=== PATIENT | female | born 1950 | race Caucasian/White ===

== ENCOUNTER 2017-07-15 05:33 | Inpatient (IN) | payer MEDICARE, OTHER, SELFPAY ==
[2017-07-15] VITALS (32 sets, daily range): BP systolic 82–117; BP diastolic 39–87; PULSE 91–122; RESP 15–29; TEMP 36.5–37.6; O2SAT 96–100; BMI 30.7; BMI 30.3
[2017-07-15] MEDS: 0.9% Normal Saline 1,000 ML 1000 ML IV (06:13)
[2017-07-15 06:19] LABS: Absolute Lymphocyte Count 2.48 X10^3/ul (0.83-4.51); Absolute Neutrophil Count 7.4 X10^3/uL (2.0-7.7); Basophil# 0.02 X10^3/uL; Basophil% 0.2 % (0-1); Eosinophil# 0.13 X10^3/uL; Eosinophils% 1.2 % (0-5); Hemoglobin 8.9 g/dl (12.0-15.0); Lymphocyte # 2.48 X10^3/ul (4.0); Lymphocyte % 23.7 % (19-41); Mean Corpuscular Hgb 30.9 pg (27.0-32.0); Mean Corpuscular Volume 93.8 fL (81-99); Mean Platelet Vol. 9.8 fl (6.2-12.0); Monocyte# 0.42 X10^3/uL; Neutrophil % 70.7 % (47-70); POSITIVE COUNT NO; POSITIVE DIFFERENTIAL NO; POSITIVE MORPHOLOGY NO; Platelet Count 228 K/mm3 (150-450); RBC Distribution Width CV 13.4 % (11.6-14.6); RBC Distribution Width SD 46.2 fl (35.1-43.9); Red Blood Count 2.88 M/mm3 (4.2-5.4); White Blood Count 10.5 K/mm3 (4.4-11.0)
[2017-07-15 06:25] LABS: International Normalized Ratio 1.3; Prothrombin Time (Protime)PT. 15.2 SECONDS (11.7-14.9)
[2017-07-15 06:26] LABS: Partial Thromboplast Time 25.9 Seconds (24.1-36.2)
[2017-07-15 06:34] LABS: Anion Gap 8 (5-15); BUN 30 mg/dL (7-18); BUN/Creat Ratio 48.9 RATIO (10-20); Calcium,Total 7.7 mg/dL (8.5-10.1); Chloride 107 mmol/L (98-107); Creatinine, Serum 0.61 mg/dL (0.55-1.02); EST Glomerular Filtration Rate 104 mL/min (>60); Est Glom Filt Rate - Afr Amer 125 mL/min (>60); Estimated Creatinine Clearance 53.81 ml/min; Glucose 110 mg/dL (74-106); Potassium 4.2 mmol/L (3.5-5.1); Sodium Level 140 mmol/L (136-145)
[2017-07-15] MEDS: 0.9% Normal Saline 1,000 ML 250 ML IV (06:56)
--- NOTE | 2017-07-15 07:02 | ED.RN ---
[id number] DR CHACON MADE AWARE THAT THE PT'S BP IS 85/43,ORDER RECIEVED.
--- NOTE | 2017-07-15 08:50 | ED.VISSUMM ---
- ER Visit Summary Date of Service: 07/15/17 Chief Complaint: Blood in stool History of Present Illness: The patient is a [address] Smith and Dr. Plata. She reports that for the past 2 days she has had black diarrhea that smells like blood. States that she has had it 3 times today. She had a 5 times yesterday. She reports that she has an intermittent stabbing abdominal pain is 8 out of 10 at worst and is 1 out of 10 currently. Is worsened by nothing relieved by nothing. She reports she is nauseated and vomits all the time. Last vomited 3 days ago. Patient reports she is lightheaded today. She has not passed out. She reports that her last colonoscopy was approximately 4 years ago. She saw Dr. Plata in the office 4 days ago and is scheduled for an endoscopy in 4 days. Physical Examination: Vitals: Stable. Afebrile. General: Well-nourished and well-developed. Head: Normocephalic atraumatic. Neck: Supple, no lymphadenopathy. No JVD. Nontender. Cardiovascular: Regular rate and rhythm. No murmurs. Respiratory: No respiratory distress. Clear to auscultation bilaterally. Abdominal: Soft, mild diffuse tenderness palpation, nondistended, normal bowel sounds. No guarding, rebound, or peritoneal signs. Back: Nontender. Extremities: Nontender, no edema. Skin: Normal color, no rash. Neurologic: Alert and oriented ?3. Cranial nerves II through XII are intact. Normal strength and sensation. Psych: Normal affect. Test Results: CBC is remarkable for an H&H of 8.9 27.0, segment neutrophils of 71. Last hemoglobin here was in January 2017. At that time was 14.2. Chem-7 is more for glucose 110, BUN of 30, and calcium is 7.7. INR is 1.3 and PTT is 25.9. Emergency Department Course and Treatment: Patient had positive orthostatic vital signs. She was given a dose of Protonix IV and started on a Protonix drip. She was discussed with Dr. Davis who has come to the emergency department and done an endoscopy. He does not see any active bleeding. He does see an ulcer in the duodenum that appears that it may have been the culprit lesion and the bleeding is resolved. Patient had procedural sedation undertaken with propofol for the endoscopy. She tolerated this well. She did not become hypoxic. Her blood pressure never decreased below 90 systolic. Treatment Plan: The patient started on a Protonix drip. She will be admitted to the ICU for further evaluation and treatment. She was typed and crossed for 2 units of packed red blood cells. Disposition: Admitted in serious condition Impression: 1. Upper GI bleed. 2. Procedural sedation. 3. Critical care time 30 minutes. This note was generated with [employer] dictation software. It may contain incorrect words, spelling, and punctuation that were not noted in review of the chart prior to signing ED Disposition - Plan for ED Patient: Chief Complaint: GI Bleed Referrals: Mary Smith DO [Primary Care Provider] -
[2017-07-15] MEDS: Propofol 200 MG/20 ML Vial IV BOLUS (09:01)
--- NOTE | 2017-07-15 09:35 | PCM.CONS.GEN ---
Problem List (1) GI bleed requiring more than 4 units of blood in 24 hours, ICU, or surgery Status: Acute (2) Hemorrhagic shock Status: Acute (3) Obesity Status: Chronic (4) SDH (subdural hematoma) Status: Acute Reason for Consult Date of Consultation: 07/15/17 History of Present Illness: The patient is a 67 year old F with a 2 day history of melena and persistent hypotension after 1 L of IV fluids. The patient notes a history of colon polyps. She had a colonoscopy performed by Dr. Plata 4 years previously which demonstrated polyps and she was actually supposed to be having a follow-up colonoscopy in the near future. The patient denies previous upper endoscopies. She denies a history of previous ulcer disease. She notes no abdominal pain area. She notes no nausea or vomiting. For the past 2 days she has noted black tarry foul-smelling stools. This persisted. She presented emergency department where she also noted dizziness. She was found to be significantly hypotensive. Laboratory studies were obtained. The patient's hemoglobin is 8.9. Last recorded hemoglobin 6 months previously, was 14.2. She was given 1+ liter of fluid and still has a systolic blood pressure less than 100. I was contacted. The patient does smoke cigarettes. She does not drink alcohol. She had a previous intracranial bleed, so she does not take aspirin. She does take rare nonsteroidal medications. She also notes a previous history of hematuria. Past Medical History Past Medical History (Chronic Problems): Chronic Problems Obesity (Chronic) GERD (gastroesophageal reflux disease) (Chronic) Allergies Penicillins Allergy (Verified 07/15/17 05:38) Unknown prednisone Allergy (Verified 07/15/17 05:38) Unknown ibuprofen [From Advil] Adverse Reaction (Verified 07/15/17 05:38) Other Home Medications: Ambulatory Orders Medication Instructions Recorded Cholecalciferol (Vitamin D3) 1,000 unit PO DAILY 07/15/17 [Vitamin D3] Cyanocobalamin (Vitamin B-12) 1,000 mcg PO DAILY 07/15/17 [Vitamin B-12] Surgical History: - - Surgery for subdural hematoma Psychiatric History: No pertinent psych hx 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 Denies: Chills, Fever, Weight Change HEENT: Denies: Head Aches, Sinus Congestion, Sinus Drainage Cardiovascular: Denies: Chest Pain, Palpitations Respiratory: Denies: Cough, Shortness of breath at rest, Sputum production Gastrointestinal: Reports: Melena. Denies: Abdominal Pain, Nausea, Vomiting Genitourinary: Denies: Dysuria Musculoskeletal: Denies: Joint Pain, Joint Tenderness Skin: Denies: Rash, Wounds Neurological: Denies: Numbness, Tingling, Focal weakness Psychiatric: Denies: Anxiety, Depression, Homicidal Ideations, Suicidal Ideations Hematologic/ Lymphatic: Denies: Easy Bruising, Easy Bleeding Patient Problems: Active and Suspected Problems GI bleed requiring more than 4 units of blood in 24 hours, ICU, or surgery (Acute) Hemorrhagic shock (Acute) - Physical Exam General: Alert, Oriented x3 HEENT: PERRLA, EOMI Lungs: Clear to auscultation, Normal air movement Cardiovascular: Regular Rhythm, Tachycardic Abdomen: Bowel Sounds Present, Soft, Non Tender Vital Signs Temp Pulse Resp BP Pulse Ox 97.7 F L 97 16 117/54 L 98 07/15/17 06:46 07/15/17 09:16 07/15/17 09:16 07/15/17 09:16 07/15/17 09:16 Oxygen Delivery Method Room Air Assessment/Plan Active and Suspected Problems GI bleed requiring more than 4 units of blood in 24 hours, ICU, or surgery (Acute) Hemorrhagic shock (Acute) GI bleed-hemorrhagic shock. Peptic ulcer-Upper endoscopy was performed in the emergency department. The patient was noted to have an edematous pylorus versus first portion of duodenum which the scope could not easily be advanced through there did not seem to be active bleeding visualized beyond that site and there appeared to be either a pyloric channel or first portion of the duodenal ulcer with white base. we will plan to admit the patient to ICU, given the fact that she remains hypotensive after fluid and would empirically transfuse 2 units of blood since she is now on her second liter of IV fluid and still somewhat hypotensive. We will start with IV proton pump inhibitors. She was given IV bolus and will maintain continuous drip. We will follow the patient clinically. If she seems to become unstable and bleed again. We will plan for repeat emergent upper endoscopy. If the patient remained stable. We will plan for repeat upper endoscopy in approximately 2 days. Will maintain patient nothing by mouth versus sips of clear liquids, to facilitate additional endoscopy if necessary. If patient otherwise stable, but seeming to have continued bleeding, then would consider bleeding scan to assess for additional locations.
--- NOTE | 2017-07-15 09:42 | PCM.OPRPT ---
Problem List (1) GI bleed requiring more than 4 units of blood in 24 hours, ICU, or surgery Status: Acute (2) Hemorrhagic shock Status: Acute (3) Obesity Status: Chronic (4) SDH (subdural hematoma) Status: Acute Report of Operation Date of Procedure: 07/15/17 Pre-Operative Diagnosis: GI bleed-hemorrhagic shock-melena Post-Operative Diagnosis: pyloric versus post pyloric edema with suggestion of white-based ulcer in first portion duodenum versus pyloric channel-no signs of active current bleeding Surgery/Procedure Performed:: EGD core driller helper: None Type of Anesthesia:: IV Sedation Specimen's removed: none Description of Procedure: The patient was brought to the trauma resuscitation bay in the emergency department. Sign in was performed verifying patient, site, planned procedure, critical nursing information, the patient was monitored with cardiac, pulse oximetric, and blood pressure monitoring devices. propofol was provided for sedation - Mister by the emergency room physician and documented under separate cover. Following IV sedation and after the oropharynx was sprayed with Cetacaine spray, a video gastroscope was inserted in the oropharynx and advanced down the esophagus without difficulty. The scope was advanced through the stomach, to the pylorus/first portion of the duodenum. this area demonstrated significant edema. It was no active bleeding in the stomach prior to this area. The scope could not be inserted through this edematous area with some mild pushing. Visual inspection did seem to demonstrate through the area. A white-based ulcer and there was no signs of blood emanating through the pylorus or blood beyond the area to which the scope could be inserted. Given these challenges. I did not attempt to push the scope through the pylorus any harder. As the scope was withdrawn. The body of the stomach demonstrated no specific abnormalities. There was mild oozing noted at that prepyloric area where I had attempted to push the scope through somewhat gently. The scope was retroflexed area. There was felt to be a small hiatal hernia versus laxity lower esophageal sphincter. As the scope was withdrawn. There was noted to be some mucosal moving over the diaphragmatic hiatus without signs of marginal ulceration. The esophagus demonstrated no signs of esophageal varices. The remainder the esophagus was normal. The patient tolerated the procedure well, but was hypotensive throughout the case with a systolic blood pressure in the 80s. The patient will be transferred to the ICU for close monitoring.
--- NOTE | 2017-07-15 09:47 | OP.PCM_ITS ---
Problem List (1) GI bleed requiring more than 4 units of blood in 24 hours, ICU, or surgery Status: Acute (2) Hemorrhagic shock Status: Acute (3) Obesity Status: Chronic (4) SDH (subdural hematoma) Status: Acute Report of Operation Date of Procedure: 07/15/17 Pre-Operative Diagnosis: GI bleed-hemorrhagic shock-melena Post-Operative Diagnosis: pyloric versus post pyloric edema with suggestion of white-based ulcer in first portion duodenum versus pyloric channel-no signs of active current bleeding Surgery/Procedure Performed:: EGD cow tester: None Type of Anesthesia:: IV Sedation Specimen's removed: none Description of Procedure: The patient was brought to the trauma resuscitation bay in the emergency department. Sign in was performed verifying patient, site, planned procedure, critical nursing information, the patient was monitored with cardiac, pulse oximetric, and blood pressure monitoring devices. propofol was provided for sedation - Mister by the emergency room physician and documented under separate cover. Following IV sedation and after the oropharynx was sprayed with Cetacaine spray , a video gastroscope was inserted in the oropharynx and advanced down the esophagus without difficulty. The scope was advanced through the stomach, to the pylorus/first portion of the duodenum. this area demonstrated significant edema. It was no active bleeding in the stomach prior to this area. The scope could not be inserted through this edematous area with some mild pushing. Visual inspection did seem to demonstrate through the area. A white-based ulcer and there was no signs of blood emanating through the pylorus or blood beyond the area to which the scope could be inserted. Given these challenges. I did not attempt to push the scope through the pylorus any harder. As the scope was withdrawn. The body of the stomach demonstrated no specific abnormalities. There was mild oozing noted at that prepyloric area where I had attempted to push the scope through somewhat gently. The scope was retroflexed area. There was felt to be a small hiatal hernia versus laxity lower esophageal sphincter. As the scope was withdrawn. There was noted to be some mucosal moving over the diaphragmatic hiatus without signs of marginal ulceration. The esophagus demonstrated no signs of esophageal varices. The remainder the esophagus was normal. The patient tolerated the procedure well, but was hypotensive throughout the case with a systolic blood pressure in the 80s. The patient will be transferred to the ICU for close monitoring.
--- NOTE | 2017-07-15 11:02 | PCM.HP.STD ---
Problem List (1) Acute blood loss anemia Status: Acute (2) Hypotension due to blood loss Status: Acute (3) Obesity Status: Chronic (4) GERD (gastroesophageal reflux disease) Status: Chronic (5) SDH (subdural hematoma) Status: Chronic History of Present Illness Date of Admission: 07/15/17 Chief Complaint: blood in stool The patient is a 67 year old F who presented to the ER complaining of blood in her stool. This began last night, she had about 4 episodes of dark red and black stools mostly liquid with what she thinks may have been blood clots. She had at least 2 more episodes of this this morning and felt dizzy when standing up which would resolve with sitting down. No syncope, LOC, or fall. She drove herself to the ER and was found to be anemic with a Hgb of 8.9. Dr. German was consulted and performed an EGD with demonstrated no active bleeding, however there was a duodenal ulcer. She was taken to the ICU and is recovering. The patient has noted off and on heartburn recently and did admit to taking two Aleve tablets on . She has a problem with sudden vomiting that occurs seemingly randomly, for example when she is driving. She denies blood or coffee ground emesis. Today she did have midepigastric abdominal pain which is improved at this point. She denies abdominal pain after eating. . She is not supposed to be on any blood thinning agents as she had a brain bleed 3 years ago which was treated with two surgeries. She denies any chronic neurologic deficits after this. She also has a recent history of hematuria for which she was seen by Dr. Quispe last month, she denies recent blood in her urine, and states lately it is just dark She also has a hx of bleeding internal hemorrhoids. She smokes 1 cigarette per day and occasionally drinks a glass of wine. [] Past Medical History Past Medical History (Chronic Problems): Chronic Problems Obesity (Chronic) GERD (gastroesophageal reflux disease) (Chronic) SDH (subdural hematoma) (Chronic) Allergies Penicillins Allergy (Verified 07/15/17 05:38) Unknown prednisone Allergy (Verified 07/15/17 05:38) Unknown ibuprofen [From Advil] Adverse Reaction (Verified 07/15/17 05:38) Other Home Medications: Ambulatory Orders Medication Instructions Recorded Cholecalciferol (Vitamin D3) 1,000 unit PO DAILY 07/15/17 [Vitamin D3] Cyanocobalamin (Vitamin B-12) 1,000 mcg PO DAILY 07/15/17 [Vitamin B-12] Surgical History: - - Surgery for subdural hematoma Psychiatric History: No pertinent psych hx 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 Denies: Chest Pain, Palpitations, Syncope Respiratory: Denies: Cough, Shortness of breath at rest, Sputum production Gastrointestinal: Reports: Abdominal Pain, Diarrhea, Hematochezia, Melena, Vomiting Genitourinary: Reports: Hematuria. Denies: Dysuria Musculoskeletal: Denies: Joint Pain, Joint Tenderness Skin: Denies: Rash, Wounds Neurological: Denies: Numbness, Tingling, Focal weakness Psychiatric: Denies: Anxiety, Depression, Homicidal Ideations, Suicidal Ideations Hematologic/ Lymphatic: Denies: Easy Bruising, Easy Bleeding VTE Information - Inpt Only VTE Present on Admission: No VTE Mechan Device Prophylaxis: SCD's VTE Pharm Prophylaxis ordered?: No Reason prophylaxis not ordered:: Medical Contraindication Patient Problems: Active and Suspected Problems GI bleed requiring more than 4 units of blood in 24 hours, ICU, or surgery (Acute) Hemorrhagic shock (Acute) Acute blood loss anemia (Acute) Hypotension due to blood loss (Acute) - Physical Exam General: Alert, Oriented x3, Cooperative HEENT: Atraumatic, PERRLA, EOMI, Normocephalic Neck: Supple, No JVD, Negative Carotid Bruits Lungs: Clear to auscultation, Normal air movement Cardiovascular: Regular rate, No murmurs Abdomen: Bowel Sounds Present, Soft, Non Tender Extremities: No edema, Capillary Refill Less than 3 Seconds Skin: No rashes, No breakdown, - - pale Musculoskeletal: No Tenderness to Palpation of Joints or Extremities Neurological: Cranial nerves II-XII grossly intact Psych/Mental Status: Normal Affect, Appropriate, Alert and oriented to time, place, person, mood and affect Vital Signs Temp Pulse Resp BP Pulse Ox 97.9 F 95 24 H 106/58 L 97 07/15/17 10:25 07/15/17 10:25 07/15/17 10:25 07/15/17 10:25 07/15/17 10:25 Oxygen Delivery Method Room Air Intake and Output for Last 24 Hours 07/13/17 07/14/17 07/15/17 23:59 23:59 23:59 Intake Total 0 / 0 Balance 0 / 0 Assessment/Plan Active and Suspected Problems GI bleed requiring more than 4 units of blood in 24 hours, ICU, or surgery (Acute) Hemorrhagic shock (Acute) Acute blood loss anemia (Acute) Hypotension due to blood loss (Acute) 1. Acute blood loss normocytic anemia 2/2 acute GI bleed suspected upper - multiple episodes of black and dark red loose stools since yesterday night and this AM with lightheadedness on standing. s/p EGD per Dr. German today no active bleeding found, report of a duodenal ulcer. She remains in ICU receiving 1 unit PRBC with low blood pressure. reported lightheadedness with standing. Continue protonix drip, serial H/H's, and antiemetics. Other notes: -frequent vomiting -reported heartburn -midepigastric pain, nontender on exam today -needs outpatient PPI -recent NSAID use - advised complete avoidance of all NSAID products. -occasional nicotine and alcohol use - needs cessation 2. Hypotension 2/2 acute blood loss - IV fluids and transfusion. 3. Hx of Brain bleed 3 years ago - I reemphasized the need to avoid all blood thinning products. No chronic deficits. 4. Nicotine abuse - strongly encouraged complete cessation 5. Hx hematuria - follows Jose Enrique 6. Hx of Bleeding internal hemorrhoids DVT ppx: SCDs Patient seen by Zak Marshall PA-C under the supervision of Dr. Harding
[2017-07-15] MEDS: 0.9% Normal Saline 1,000 ML 150 ML IV (13:37)
[2017-07-15 18:32] LABS: Hematocrit 24.8 % (37-47); Hemoglobin 8.3 g/dl (12.0-15.0)
[2017-07-15] MEDS: 0.9% NaCl Peripheral Flush Adult/Peds IV (22:22)
[2017-07-15 23:54] LABS: Hematocrit 26.1 % (37-47); Hemoglobin 8.8 g/dl (12.0-15.0)
[2017-07-16] VITALS (21 sets, daily range): BP systolic 88–99; BP diastolic 40–59; PULSE 82–97; RESP 16–24; TEMP 36.8–37.8; O2SAT 97–100
[2017-07-16] MEDS: 0.9% NaCl Peripheral Flush Adult/Peds IV (01:28)
[2017-07-16] MEDS: 0.9% Normal Saline 1,000 ML 150 ML IV ×2 (01:28→09:56)
[2017-07-16] MEDS: CHLORHEXIDINE GLUC 2% CLOTH 1 EACH TOWELETTE TOPICAL (04:23)
[2017-07-16 05:34] LABS: Absolute Lymphocyte Count 1.73 X10^3/ul (0.83-4.51); Absolute Neutrophil Count 7.1 X10^3/uL (2.0-7.7); Basophil# 0.02 X10^3/uL; Basophil% 0.2 % (0-1); Eosinophil# 0.13 X10^3/uL; Eosinophils% 1.4 % (0-5); Hematocrit 26.5 % (37-47); Hemoglobin 8.9 g/dl (12.0-15.0); Lymphocyte # 1.73 X10^3/ul (4.0); Lymphocyte % 18.1 % (19-41); Mean Corp Hgb Conc 33.6 g/gl (32-36); Mean Corpuscular Hgb 31.1 pg (27.0-32.0); Mean Corpuscular Volume 92.7 fL (81-99); Mean Platelet Vol. 10.1 fl (6.2-12.0); Monocyte# 0.61 X10^3/uL; Monocyte% 6.4 % (0-10); Neutrophil # 7.05 X10^3/uL (2.7-7.7); Neutrophil % 73.6 % (47-70); Platelet Count 155 K/mm3 (150-450); RBC Distribution Width CV 14.8 % (11.6-14.6); RBC Distribution Width SD 48.4 fl (35.1-43.9); Red Blood Count 2.86 M/mm3 (4.2-5.4); White Blood Count 9.6 K/mm3 (4.4-11.0)
[2017-07-16 05:43] LABS: POSITIVE COUNT NO; POSITIVE DIFFERENTIAL NO; POSITIVE MORPHOLOGY NO
[2017-07-16 05:44] LABS: Anion Gap 6 (5-15); BUN 12 mg/dL (7-18); BUN/Creat Ratio 20.8 RATIO (10-20); Calcium,Total 7.2 mg/dL (8.5-10.1); Chloride 113 mmol/L (98-107); Creatinine, Serum 0.58 mg/dL (0.55-1.02); EST Glomerular Filtration Rate 111 mL/min (>60); Est Glom Filt Rate - Afr Amer 135 mL/min (>60); Estimated Creatinine Clearance 55.82 ml/min; Glucose 95 mg/dL (74-106); Potassium 3.5 mmol/L (3.5-5.1); Sodium Level 143 mmol/L (136-145)
--- NOTE | 2017-07-16 07:10 | PCM.CON.CC ---
Reason for Consult Date of Consultation: 07/16/17 Reason for Consultation: Gastrointestinal hemorrhage/hypotension History of Present Illness: The patient is a 67-year-old female, with a history as outlined below, who presented to the emergency department on July 15 with melena, abdominal pain, nausea and vomiting. The patient does have a history of colonic polyps and had her last colonoscopy performed by Dr. Plata approximately 4 years ago. The patient has no known upper gastrointestinal disease. On presentation to the emergency department, the patient was noted to be afebrile, tachycardic and mildly hypotensive with an initial blood pressure documented to be 93/57. The patient was initially maintaining appropriate oxygen saturations on room air. Laboratory evaluation revealed no evidence of a leukocytosis. The patient was noted to have a hemoglobin of 8.9 g/dL on admission. Prior to this, in January 2017, her hemoglobin was noted to be 14.2 g/dL. Coagulation profile is within normal limits. Chemistry profile was notable for an elevated BUN to 30. The patient was given supplemental IV fluids and started on a PPI drip. She was evaluated by Dr. German of surgery and subsequently underwent an upper endoscopy. The procedure revealed the presence of a duodenal ulcer. To date, the patient has been transfused 3 units of packed red blood cells. Past Medical History Past Medical History (Chronic Problems): Chronic Problems Obesity (Chronic) GERD (gastroesophageal reflux disease) (Chronic) SDH (subdural hematoma) (Chronic) Allergies Penicillins Allergy (Verified 07/15/17 05:38) Unknown prednisone Allergy (Verified 07/15/17 05:38) Unknown ibuprofen [From Advil] Adverse Reaction (Verified 07/15/17 05:38) Other Home Medications: Ambulatory Orders Medication Instructions Recorded Cholecalciferol (Vitamin D3) 1,000 unit PO DAILY 07/15/17 [Vitamin D3] Cyanocobalamin (Vitamin B-12) 1,000 mcg PO DAILY 07/15/17 [Vitamin B-12] Surgical History: - - Surgery for subdural hematoma Psychiatric History: No pertinent psych hx 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 Lives: Spouse/ Significant Other Smoking Status: Current every day smoker Alcohol: Rare - *Family History Maternal History Items: Cancer Paternal History Items: No pertinent history Review of Systems Constitutional: Denies: Chills, Fever, Night Sweats Eyes: Denies: Blurred vision, Double vision HEENT: Denies: Head Aches, Sinus Congestion, Sinus Drainage Cardiovascular: Reports: Light Headedness Respiratory: Denies: Cough, Shortness of breath at rest, Sputum production Gastrointestinal: Reports: Abdominal Pain, Nausea, Melena, Vomiting Genitourinary: Denies: Dysuria Musculoskeletal: Denies: Joint Pain, Joint Tenderness Skin: Denies: Rash, Wounds Neurological: Denies: Numbness, Tingling, Focal weakness Psychiatric: Denies: Anxiety, Depression, Homicidal Ideations, Suicidal Ideations Hematologic/ Lymphatic: Reports: Anemia, Hx of blood transfusion Patient Problems: Active and Suspected Problems GI bleed requiring more than 4 units of blood in 24 hours, ICU, or surgery (Acute) Hemorrhagic shock (Acute) Acute blood loss anemia (Acute) Hypotension due to blood loss (Acute) Objective: The patient's most recent lab work, culture data and imaging studies have all been personally reviewed. - Physical Exam General: Alert, Oriented x3, Cooperative, No apparent distress HEENT: Atraumatic, PERRLA, Normocephalic Oral: Moist Mucosa, No Gingival or Mucosal Lesions/ Ulcerations Neck: Supple, No Nodes, Trachea Midline Lungs: Normal air movement, No rhonchi, No wheeze, No rales Cardiovascular: Regular rate, Regular Rhythm, Normal S1, Normal S2, No murmurs, No rub noted, No Gallop Abdomen: Soft, Non Tender, Hypoactive Bowel Sounds, Obese Extremities: No clubbing, No cyanosis, No edema Skin: No rashes, No breakdown Musculoskeletal: No Tenderness to Palpation of Joints or Extremities Lymphatic: No Cervical, Supraclavicular, or Inguinal Adenopathy Neurological: Neuro grossly intact Psych/Mental Status: Alert and oriented to time, place, person, mood and affect Vital Signs Temp Pulse Resp BP Pulse Ox 99.2 F H 87 18 97/53 L 99 07/16/17 04:00 07/16/17 06:00 07/16/17 06:00 07/16/17 06:00 07/16/17 06:00 Oxygen Delivery Method Room Air Weight: 199 lb 15.348 oz Body Mass Index (BMI) 30.3 Intake and Output for Last 24 Hours 07/14/17 07/15/17 07/16/17 23:59 23:59 23:59 Intake Total 2734 / 2734 1310 / 1310 Output Total 800 / 800 1050 / 1050 Balance 1934 / 193 260 / 260 Laboratory Tests Past 24 Hrs 07/15/17 07/15/17 07/16/17 18:20 23:45 05:20 WBC 9.6 RBC 2.86 L Hgb 8.3 L 8.8 L 8.9 L Hct 24.8 L 26.1 L 26.5 L MCV 92.7 MCH 31.1 MCHC 33.6 RDW 14.8 H RDW Differential 48.4 H Plt Count 155 MPV 10.1 Immature Gran % (Auto) 0.300 Neut % (Auto) 73.6 H Lymph % (Auto) 18.1 L [place] % (Auto) 6.4 Eos % (Auto) 1.4 Baso % (Auto) 0.2 Absolute Neuts (auto) 7.1 Absolute Lymphs (auto) 1.73 Total Counted Not Reportable Sodium Potassium Chloride Carbon Dioxide Anion Gap BUN Creatinine Estim Creat Clear Calc Est GFR (MDRD) Af Amer Est GFR (MDRD) Non-Af BUN/Creatinine Ratio Glucose Calcium 07/16/17 05:20 WBC RBC Hgb Hct MCV MCH MCHC RDW RDW Differential Plt Count MPV Immature Gran % (Auto) Neut % (Auto) Lymph % (Auto) [place] % (Auto) Eos % (Auto) Baso % (Auto) Absolute Neuts (auto) Absolute Lymphs (auto) Total Counted Sodium 143 Potassium 3.5 Chloride 113 H Carbon Dioxide 24.0 Anion Gap 6 BUN 12 Creatinine 0.58 Estim Creat Clear Calc 55.82 Est GFR (MDRD) Af Amer 135 Est GFR (MDRD) Non-Af 111 BUN/Creatinine Ratio 20.8 H Glucose 95 Calcium 7.2 L Assessment/Plan Active and Suspected Problems GI bleed requiring more than 4 units of blood in 24 hours, ICU, or surgery (Acute) Hemorrhagic shock (Acute) Acute blood loss anemia (Acute) Hypotension due to blood loss (Acute) RECOMMENDATIONS: 1. Continue supplemental IV fluids and PPI drip. Consider transitioning to half normal saline given rising sodium and chloride levels. 2. Continue to monitor blood counts daily 3. Transfuse if hemoglobin drops below 7 g/dL 4. Continue as needed Zofran 5. Encourage incentive spirometer use while in bed IMPRESSIONS: 1. Acute blood loss anemia secondary to upper GI bleed The patient is status post upper endoscopy. Continue supplemental IV fluids and PPI. Monitor blood counts daily. Transfuse if hemoglobin is less than 7 g/dL. There are tentative plans for repeat upper endoscopy tomorrow. 2. Hypotension The patient's blood pressures are at her baseline. She is mentating appropriately and had negative orthostatics. 3. Obesity/GERD/tobacco dependence Complicates care, management, recovery and prognosis. Smoking cessation is advisable. This note was generated with [employer] dictation software. It may contain incorrect words, spelling, and punctuation that were not noted in checking the note before signing. Code Visit Inpatient E&M: 75636 Init Hosp L3
--- NOTE | 2017-07-16 10:39 | PN_ITS ---
Patient Problems: Active and Suspected Problems GI bleed requiring more than 4 units of blood in 24 hours, ICU, or surgery ( Acute) Hemorrhagic shock (Acute) Acute blood loss anemia (Acute) Hypotension due to blood loss (Acute) Subjective: Pt has no abdominal discomfort, nausea, episodes of vomiting. She has received 3 units of blood total so far with no reaction. She is no longer dizzy or LH when she stands up and has been walking to the restroom. She was able to move her bowels this AM at about 0500 and reports it was very dark but no blood. She is agreeable to a repeat EGD in the AM. - Physical Exam General: Alert, Oriented x3, Cooperative HEENT: Atraumatic, PERRLA, EOMI, Normocephalic Neck: Supple, No JVD, Negative Carotid Bruits Lungs: Clear to auscultation, Normal air movement Cardiovascular: Regular rate, No murmurs Abdomen: Bowel Sounds Present, Soft, Non Tender, Hypoactive Bowel Sounds Extremities: No edema, Capillary Refill Less than 3 Seconds Skin: No rashes, No breakdown Musculoskeletal: No Tenderness to Palpation of Joints or Extremities Neurological: Cranial nerves II-XII grossly intact Psych/Mental Status: Normal Affect, Appropriate Vital Signs Temp Pulse Resp BP Pulse Ox 98.9 F 90 22 H 93/56 L 98 07/16/17 09:00 07/16/17 09:00 07/16/17 09:00 07/16/17 09:00 07/16/17 09:00 Oxygen Delivery Method Room Air Weight: 90.7 kg Body Mass Index (BMI) 30.3 Intake and Output for Last 24 Hours 07/14/17 07/15/17 07/16/17 23:59 23:59 23:59 Intake Total 2734 / 2734 1310 / 1310 Output Total 800 / 800 1050 / 1050 Balance 1934 / 1934 260 / 260 Laboratory Tests Past 24 Hrs 07/15/17 07/15/17 07/16/17 18:20 23:45 05:20 WBC 9.6 RBC 2.86 L Hgb 8.3 L 8.8 L 8.9 L Hct 24.8 L 26.1 L 26.5 L MCV 92.7 MCH 31.1 MCHC 33.6 RDW 14.8 H RDW Differential 48.4 H Plt Count 155 MPV 10.1 Immature Gran % (Auto) 0.300 Neut % (Auto) 73.6 H Lymph % (Auto) 18.1 L [place] % (Auto) 6.4 Eos % (Auto) 1.4 Baso % (Auto) 0.2 Absolute Neuts (auto) 7.1 Absolute Lymphs (auto) 1.73 Total Counted Not Reportable Sodium Potassium Chloride Carbon Dioxide Anion Gap BUN Creatinine Estim Creat Clear Calc Est GFR (MDRD) Af Amer Est GFR (MDRD) Non-Af BUN/Creatinine Ratio Glucose Calcium 07/16/17 05:20 WBC RBC Hgb Hct MCV MCH MCHC RDW RDW Differential Plt Count MPV Immature Gran % (Auto) Neut % (Auto) Lymph % (Auto) [place] % (Auto) Eos % (Auto) Baso % (Auto) Absolute Neuts (auto) Absolute Lymphs (auto) Total Counted Sodium 143 Potassium 3.5 Chloride 113 H Carbon Dioxide 24.0 Anion Gap 6 BUN 12 Creatinine 0.58 Estim Creat Clear Calc 55.82 Est GFR (MDRD) Af Amer 135 Est GFR (MDRD) Non-Af 111 BUN/Creatinine Ratio 20.8 H Glucose 95 Calcium 7.2 L Assessment/Plan Active and Suspected Problems GI bleed requiring more than 4 units of blood in 24 hours, ICU, or surgery ( Acute) Hemorrhagic shock (Acute) Acute blood loss anemia (Acute) Hypotension due to blood loss (Acute) 1. Acute blood loss normocytic anemia 2/2 acute GI bleed suspected upper - pt presented with bloody stools, anemia, and LH on standing. s/p EGD with duodenal ulcer yesterday and no active bleeding, 3 units PRBC transfused so far, 1 more to be given today. BP remains in the 90s systolic, however she reports that she runs low, and her dizziness and LH upon standing has resolved. She will have a repeat EGD tomorrow. H/H later today and in the AM. Continue IV PPI, will need PPI as outpatient. 2. Hypotension 2/2 acute blood loss - IV fluids and blood products as above. 3. Hx of Brain bleed 3 years ago - I reemphasized the need to avoid all blood thinning products. No chronic deficits. 4. Nicotine abuse - strongly encouraged complete cessation 5. Hx hematuria - follows Jose [facility] 6. Hx of Bleeding internal hemorrhoids DVT ppx: SCDs Dispo: pt to be transferred to [place] today. EGD in AM. Patient seen by Zak Marshall PA-C under the supervision of Dr. Harding
[2017-07-16 17:43] LABS: Hematocrit 29.9 % (37-47); Hemoglobin 9.9 g/dl (12.0-15.0)
--- NOTE | 2017-07-16 19:05 | PN.SURG_ITS ---
Patient Problems: Active and Suspected Problems GI bleed requiring more than 4 units of blood in 24 hours, ICU, or surgery ( Acute) Hemorrhagic shock (Acute) Acute blood loss anemia (Acute) Hypotension due to blood loss (Acute) - Physical Exam General: Alert, Oriented x3 Lungs: Clear to auscultation, Normal air movement Cardiovascular: Regular rate, Regular Rhythm Abdomen: Bowel Sounds Present, Soft, Non Tender Vital Signs Temp Pulse Resp BP Pulse Ox 98.6 F 87 18 92/59 L 100 07/16/17 18:37 07/16/17 18:37 07/16/17 18:37 07/16/17 18:37 07/16/17 18:37 Oxygen Delivery Method Room Air Weight: 90.7 kg Body Mass Index (BMI) 30.3 Intake and Output for Last 24 Hours 07/14/17 07/15/17 07/16/17 23:59 23:59 23:59 Intake Total 2734 / 2734 4063 / 4063 Output Total 800 / 800 1350 / 1350 Balance 1934 / 1934 2713 / 2713 Laboratory Tests Past 24 Hrs 07/15/17 07/16/17 07/16/17 23:45 05:20 05:20 WBC 9.6 RBC 2.86 L Hgb 8.8 L 8.9 L Hct 26.1 L 26.5 L MCV 92.7 MCH 31.1 MCHC 33.6 RDW 14.8 H RDW Differential 48.4 H Plt Count 155 MPV 10.1 Immature Gran % (Auto) 0.300 Neut % (Auto) 73.6 H Lymph % (Auto) 18.1 L [place] % (Auto) 6.4 Eos % (Auto) 1.4 Baso % (Auto) 0.2 Absolute Neuts (auto) 7.1 Absolute Lymphs (auto) 1.73 Total Counted Not Reportable Sodium 143 Potassium 3.5 Chloride 113 H Carbon Dioxide 24.0 Anion Gap 6 BUN 12 Creatinine 0.58 Estim Creat Clear Calc 55.82 Est GFR (MDRD) Af Amer 135 Est GFR (MDRD) Non-Af 111 BUN/Creatinine Ratio 20.8 H Glucose 95 Calcium 7.2 L 07/16/17 17:15 WBC RBC Hgb 9.9 L Hct 29.9 L MCV MCH MCHC RDW RDW Differential Plt Count MPV Immature Gran % (Auto) Neut % (Auto) Lymph % (Auto) [place] % (Auto) Eos % (Auto) Baso % (Auto) Absolute Neuts (auto) Absolute Lymphs (auto) Total Counted Sodium Potassium Chloride Carbon Dioxide Anion Gap BUN Creatinine Estim Creat Clear Calc Est GFR (MDRD) Af Amer Est GFR (MDRD) Non-Af BUN/Creatinine Ratio Glucose Calcium Assessment/Plan Active and Suspected Problems GI bleed requiring more than 4 units of blood in 24 hours, ICU, or surgery ( Acute) Hemorrhagic shock (Acute) Acute blood loss anemia (Acute) Hypotension due to blood loss (Acute) GI bleed-hemorrhagic shock. - edema at the pylorus Peptic ulcer-Upper endoscopy was performed in the emergency department. The patient was noted to have an edematous pylorus versus first portion of duodenum which the scope could not easily be advanced through there did not seem to be active bleeding visualized beyond that site and there appeared to be either a pyloric channel or first portion of the duodenal ulcer with white base. Transfused 3 units of PRBC. Hgb increased 1gm today. The patient remained stable. We will plan for repeat upper endoscopy tomorrow. Will maintain patient nothing by mouth at 6am.
[2017-07-16] MEDS: 0.9% Normal Saline 1,000 ML 100 ML IV (22:35)
[2017-07-16] MEDS: Menthol/Lanolin/Calamine/Znox 113 GM Tube 1 APPLIC TOPICAL (22:36)
[2017-07-17] VITALS (13 sets, daily range): BP systolic 84–124; BP diastolic 49–62; PULSE 77–92; RESP 16–19; TEMP 36.2–36.7; O2SAT 92–100; BMI 30.7
--- NOTE | 2017-07-17 | IMM_PTH ---
PATIENT: CARLA HARRISON LOC: MS2 U#:[id number] AGE/SX: 67/F ROOM: [id number] RE07/15/[address]: Dr. Bob Antunez DO : 1950 BED: 1 DIS: 07/18/2017 SPEC #: [id number] RECD: 07/18/17 13:35 STATUS: RACHAEL REQ #: [id number] SALAS: 07/17/17 00:[address]: Padilla German DEPT: IMMUNOHISTOCHEMISTRY RECD BY: Phyllis De Santiago ENTERED: 07/18/17 13:36 SP TYPE: IMMUNO OTHR DR: MD Dr. Bob Undewrood DO Dr. Lisa Malys, DO Dr. Mark Tereletsky, DO Tissues: B - Stomach, NOS Procedures: H Pylori (initial) Comments: @ Ordering doctor for H.PYLORI edited from to DR.RGUTTM Archibald by DIVYA at 07/18/17 140 @ Submitting doctor edited from to DR.RGUTTM Archibald by DIVYA at 07/18/17 1403 PHYSICIAN & [place] [id number] SPECIMEN INFORMATION: Tissue Source: B ? Antral biopsy Clinical Info: GI bleed Specimen Number: [id number] CPT code: 18217 METHODOLOGY: Deparaffinized sections of prefer/formalin-fixed tissue or PAP/DQ stained slides are incubated with monoclonal/polyclonal antibodies/oligonucleotide probes. Localization is made via biotin free immunoperoxidase method. Appropriate controls are performed and reacted as expected. Results on target cell population are indicated in the following table: RESULTS: ANTIBODY / CLONE RESULT Block B H Pylori (polyclonal) negative These tests were developed and their performance characteristics determined by [facility]. They may not have been cleared or approved by the U.S. Food and Drug Administration. The FDA has determined that such clearance or approval is not necessary. INTERPRETATION: B. Antral biopsy: Negative for Helicobacter pylori organisms. AM:amber 07/19/17
--- NOTE | 2017-07-17 06:00 | EKG12_ITS ---
Test Reason : AM EKG Blood Pressure : / mmHG Vent. Rate : 077 BPM Atrial Rate : 077 BPM P-R Int : 146 ms QRS Dur : 090 ms QT Int : 412 ms P-R-T Axes : -03 037 013 degrees QTc Int : 466 ms Normal sinus rhythm Normal ECG When compared with ECG of 27-JUL-2008 08:49, No significant change was found Confirmed by FRANC KOCH ([id number]), editor greeting card ALEX GARCIA ([id number]) on 07/26/2017 3:02:16 PM Referred By: FRANCE Confirmed By:FRANC KOCH
[2017-07-17 06:09] LABS: Absolute Lymphocyte Count 1.36 X10^3/ul (0.83-4.51); Absolute Neutrophil Count 3.8 X10^3/uL (2.0-7.7); Basophil# 0.02 X10^3/uL; Basophil% 0.4 % (0-1); Eosinophil# 0.14 X10^3/uL; Eosinophils% 2.5 % (0-5); Hemoglobin 8.8 g/dl (12.0-15.0); Lymphocyte # 1.36 X10^3/ul (4.0); Mean Corp Hgb Conc 32.6 g/gl (32-36); Mean Corpuscular Hgb 29.8 pg (27.0-32.0); Mean Corpuscular Volume 91.5 fL (81-99); Mean Platelet Vol. 10.2 fl (6.2-12.0); Monocyte# 0.38 X10^3/uL; Monocyte% 6.7 % (0-10); Neutrophil # 3.77 X10^3/uL (2.7-7.7); Neutrophil % 66.4 % (47-70); Platelet Count 148 K/mm3 (150-450); RBC Distribution Width CV 15.8 % (11.6-14.6); Red Blood Count 2.95 M/mm3 (4.2-5.4); White Blood Count 5.7 K/mm3 (4.4-11.0)
[2017-07-17 06:11] LABS: POSITIVE COUNT NO; POSITIVE DIFFERENTIAL NO; POSITIVE MORPHOLOGY NO
[2017-07-17 06:13] LABS: International Normalized Ratio 1.3
[2017-07-17 06:14] LABS: Partial Thromboplast Time 28.9 Seconds (24.1-36.2)
[2017-07-17] MEDS: 0.9% Normal Saline 1,000 ML 100 ML IV (06:31)
--- NOTE | 2017-07-17 08:21 | PCM.PROGNOTE ---
Patient Problems: Active and Suspected Problems GI bleed requiring more than 4 units of blood in 24 hours, ICU, or surgery (Acute) Hemorrhagic shock (Acute) Acute blood loss anemia (Acute) Hypotension due to blood loss (Acute) Subjective: Patient was seen and examined. Remains afebrile and hemodynamically stable. Denies any abdominal pain or discomfort. Reports she had another bowel movement this morning that was dark. No associated cramping. No nausea or vomiting. Patient remains n.p.o. in anticipation for repeat upper endoscopy today around noon. Objective: Recent lab work reviewed, hemoglobin stable at 8.8 (9.9 yesterday). Patient has had a total of 4 units of packed red blood cells. Maintaining appropriate saturations on room air. INR is 1.3. Continues with normal saline at 100 cc an hour and blood pressure remains on the lower side but stable, asymptomatic. Renal function remains stable 07/16, no BMP today. - Physical Exam General: Alert, Oriented x3, Cooperative, No apparent distress, Well developed, Well nourished, - - No conversational dyspnea HEENT: Atraumatic, Normocephalic Oral: Moist Mucosa, No Gingival or Mucosal Lesions/ Ulcerations, - - edentulous Neck: Supple, No Nodes, Trachea Midline Lungs: Clear to auscultation, No rhonchi, No wheeze, No rales Cardiovascular: Regular rate, Regular Rhythm, Normal S1, Normal S2, No murmurs, PMI Normal, No rub noted, No Gallop Abdomen: Bowel Sounds Present, Soft, Non Tender, Non-Distended, Obese Extremities: No clubbing, No cyanosis, No edema, Capillary Refill Less than 3 Seconds Skin: No rashes, No breakdown Musculoskeletal: No Tenderness to Palpation of Joints or Extremities Lymphatic: No Cervical, Supraclavicular, or Inguinal Adenopathy Neurological: Cranial nerves II-XII grossly intact, Neuro grossly intact, Motor Exam 5/5 strength throughout Psych/Mental Status: Alert and oriented to time, place, person, mood and affect Vital Signs Temp Pulse Resp BP Pulse Ox 97.9 F 81 16 101/54 L 100 07/17/17 04:37 07/17/17 04:37 07/17/17 04:37 07/17/17 04:37 07/17/17 04:37 Oxygen Delivery Method Room Air Weight: 201 lb 15.095 oz Body Mass Index (BMI) 30.3 Intake and Output for Last 24 Hours 07/15/17 07/16/17 07/17/17 23:59 23:59 23:59 Intake Total 2734 / 2734 4063 / 4063 1536 / 1536 Output Total 800 / 800 1350 / 1350 1300 / 1300 Balance 1934 / 1934 2713 / 2713 236 / 236 Laboratory Tests Past 24 Hrs 07/16/17 07/17/17 07/17/17 17:15 05:40 05:40 WBC 5.7 RBC 2.95 L Hgb 9.9 L 8.8 L Hct 29.9 L 27.0 L MCV 91.5 MCH 29.8 MCHC 32.6 RDW 15.8 H RDW Differential 51.0 H Plt Count 148 L MPV 10.2 Immature Gran % (Auto) 0.000 Neut % (Auto) 66.4 Lymph % (Auto) 24.0 [place] % (Auto) 6.7 Eos % (Auto) 2.5 Baso % (Auto) 0.4 Absolute Neuts (auto) 3.8 Absolute Lymphs (auto) 1.36 Total Counted Not Reportable PT 16.0 H INR 1.3 APTT 28.9 Assessment/Plan Active and Suspected Problems GI bleed requiring more than 4 units of blood in 24 hours, ICU, or surgery (Acute) Hemorrhagic shock (Acute) Acute blood loss anemia (Acute) Hypotension due to blood loss (Acute) RECOMMENDATIONS: 1. Continue supplemental IV fluids and PPI drip. Consider transitioning to half normal saline given rising sodium and chloride levels. 2. Continue to monitor blood counts daily 3. Transfuse if hemoglobin drops below 7 g/dL 4. Continue as needed Zofran 5. Encourage incentive spirometer use while in bed IMPRESSIONS: 1. Acute blood loss anemia secondary to upper GI bleed The patient is status post upper endoscopy. Continue supplemental IV fluids and PPI. Monitor blood counts daily. Transfuse if hemoglobin is less than 7 g/dL. There are tentative plans for repeat upper endoscopy today around noon. 2. Hypotension The patient's blood pressures are at her baseline. She is mentating appropriately and had negative orthostatics. She is asymptomatic. 3. Obesity/GERD/tobacco dependence Complicates care, management, recovery and prognosis. Smoking cessation is advisable. This note was generated with [employer] software. It may contain incorrect words, spelling, and punctuation that were not noted in checking the note before signing.
--- NOTE | 2017-07-17 08:28 | PN_ITS ---
Patient Problems: Active and Suspected Problems GI bleed requiring more than 4 units of blood in 24 hours, ICU, or surgery ( Acute) Hemorrhagic shock (Acute) Acute blood loss anemia (Acute) Hypotension due to blood loss (Acute) Subjective: Patient was seen and examined. Remains afebrile and hemodynamically stable. Denies any abdominal pain or discomfort. Reports she had another bowel movement this morning that was dark. No associated cramping. No nausea or vomiting. Patient remains n.p.o. in anticipation for repeat upper endoscopy today around noon. Objective: Recent lab work reviewed, hemoglobin stable at 8.8 (9.9 yesterday). Patient has had a total of 4 units of packed red blood cells. Maintaining appropriate saturations on room air. INR is 1.3. Continues with normal saline at 100 cc an hour and blood pressure remains on the lower side but stable, asymptomatic. Renal function remains stable 07/16, no BMP today. - Physical Exam General: Alert, Oriented x3, Cooperative, No apparent distress, Well developed, Well nourished, - - No conversational dyspnea HEENT: Atraumatic, Normocephalic Oral: Moist Mucosa, No Gingival or Mucosal Lesions/ Ulcerations, - - edentulous Neck: Supple, No Nodes, Trachea Midline Lungs: Clear to auscultation, No rhonchi, No wheeze, No rales Cardiovascular: Regular rate, Regular Rhythm, Normal S1, Normal S2, No murmurs, PMI Normal, No rub noted, No Gallop Abdomen: Bowel Sounds Present, Soft, Non Tender, Non-Distended, Obese Extremities: No clubbing, No cyanosis, No edema, Capillary Refill Less than 3 Seconds Skin: No rashes, No breakdown Musculoskeletal: No Tenderness to Palpation of Joints or Extremities Lymphatic: No Cervical, Supraclavicular, or Inguinal Adenopathy Neurological: Cranial nerves II-XII grossly intact, Neuro grossly intact, Motor Exam 5/5 strength throughout Psych/Mental Status: Alert and oriented to time, place, person, mood and affect Vital Signs Temp Pulse Resp BP Pulse Ox 97.9 F 81 16 101/54 L 100 07/17/17 04:37 07/17/17 04:37 07/17/17 04:37 07/17/17 04:37 07/17/17 04:37 Oxygen Delivery Method Room Air Weight: 201 lb 15.095 oz Body Mass Index (BMI) 30.3 Intake and Output for Last 24 Hours 07/15/17 07/16/17 07/17/17 23:59 23:59 23:59 Intake Total 2734 / 2734 4063 / 4063 1536 / 1536 Output Total 800 / 800 1350 / 1350 1300 / 1300 Balance 1934 / 1934 2713 / 2713 236 / 236 Laboratory Tests Past 24 Hrs 07/16/17 07/17/17 07/17/17 17:15 05:40 05:40 WBC 5.7 RBC 2.95 L Hgb 9.9 L 8.8 L Hct 29.9 L 27.0 L MCV 91.5 MCH 29.8 MCHC 32.6 RDW 15.8 H RDW Differential 51.0 H Plt Count 148 L MPV 10.2 Immature Gran % (Auto) 0.000 Neut % (Auto) 66.4 Lymph % (Auto) 24.0 [place] % (Auto) 6.7 Eos % (Auto) 2.5 Baso % (Auto) 0.4 Absolute Neuts (auto) 3.8 Absolute Lymphs (auto) 1.36 Total Counted Not Reportable PT 16.0 H INR 1.3 APTT 28.9 Assessment/Plan Active and Suspected Problems GI bleed requiring more than 4 units of blood in 24 hours, ICU, or surgery ( Acute) Hemorrhagic shock (Acute) Acute blood loss anemia (Acute) Hypotension due to blood loss (Acute) RECOMMENDATIONS: 1. Continue supplemental IV fluids and PPI drip. Consider transitioning to half normal saline given rising sodium and chloride levels. 2. Continue to monitor blood counts daily 3. Transfuse if hemoglobin drops below 7 g/dL 4. Continue as needed Zofran 5. Encourage incentive spirometer use while in bed IMPRESSIONS: 1. Acute blood loss anemia secondary to upper GI bleed The patient is status post upper endoscopy. Continue supplemental IV fluids and PPI. Monitor blood counts daily. Transfuse if hemoglobin is less than 7 g/ dL. There are tentative plans for repeat upper endoscopy today around noon. 2. Hypotension The patient's blood pressures are at her baseline. She is mentating appropriately and had negative orthostatics. She is asymptomatic. 3. Obesity/GERD/tobacco dependence Complicates care, management, recovery and prognosis. Smoking cessation is advisable. This note was generated with [employer] software. It may contain incorrect words, spelling, and punctuation that were not noted in checking the note before signing.
[2017-07-17] MEDS: Menthol/Lanolin/Calamine/Znox 113 GM Tube 1 APPLIC TOPICAL ×2 (10:22→20:19)
--- NOTE | 2017-07-17 11:13 | CASEMGMT ---
DC Planning: Home on dc. PT with hypotension today, remains on RA. No new dc needs identified. Froylan GROSSN RN ACM
[2017-07-17] MEDS: 0.9% NaCl Peripheral Flush Adult/Peds IV ×3 (11:45→20:19)
--- NOTE | 2017-07-17 12:14 | PCM.PROGNOTE ---
<Zak Marshall - Last Filed: 07/17/17 12:14> Patient Problems: Active and Suspected Problems GI bleed requiring more than 4 units of blood in 24 hours, ICU, or surgery (Acute) Hemorrhagic shock (Acute) Acute blood loss anemia (Acute) Hypotension due to blood loss (Acute) Subjective: The patient is resting comfortably in bed or chair at bedside. She had a bowel movement this morning with more black stools. She has no abdominal pain. No further dizziness or lightheadedness. No nausea or vomiting. She is waiting to undergo an EGD repeat today. - Physical Exam General: Alert, Oriented x3, Cooperative HEENT: Atraumatic, PERRLA, EOMI, Normocephalic Neck: Supple, No JVD, Negative Carotid Bruits Lungs: Clear to auscultation, Normal air movement Cardiovascular: Regular rate, No murmurs Abdomen: Bowel Sounds Present, Soft, Non Tender Extremities: No edema, Capillary Refill Less than 3 Seconds Skin: No rashes, No breakdown Musculoskeletal: No Tenderness to Palpation of Joints or Extremities Neurological: Cranial nerves II-XII grossly intact Psych/Mental Status: Normal Affect, Appropriate, Alert and oriented to time, place, person, mood and affect Vital Signs Temp Pulse Resp BP Pulse Ox 97.7 F L 78 18 106/52 L 100 07/17/17 10:32 07/17/17 10:32 07/17/17 10:32 07/17/17 10:32 07/17/17 10:32 Oxygen Delivery Method Room Air Weight: 91.6 kg Body Mass Index (BMI) 30.7 Intake and Output for Last 24 Hours 07/15/17 07/16/17 07/17/17 23:59 23:59 23:59 Intake Total 2734 / 2734 4063 / 4063 1536 / 1536 Output Total 800 / 800 1350 / 1350 1300 / 1300 Balance 1934 / 1934 2713 / 2713 236 / 236 Laboratory Tests Past 24 Hrs 07/16/17 07/17/17 07/17/17 17:15 05:40 05:40 WBC 5.7 RBC 2.95 L Hgb 9.9 L 8.8 L Hct 29.9 L 27.0 L MCV 91.5 MCH 29.8 MCHC 32.6 RDW 15.8 H RDW Differential 51.0 H Plt Count 148 L MPV 10.2 Immature Gran % (Auto) 0.000 Neut % (Auto) 66.4 Lymph % (Auto) 24.0 [place] % (Auto) 6.7 Eos % (Auto) 2.5 Baso % (Auto) 0.4 Absolute Neuts (auto) 3.8 Absolute Lymphs (auto) 1.36 Total Counted Not Reportable PT 16.0 H INR 1.3 APTT 28.9 Assessment/Plan Active and Suspected Problems GI bleed requiring more than 4 units of blood in 24 hours, ICU, or surgery (Acute) Hemorrhagic shock (Acute) Acute blood loss anemia (Acute) Hypotension due to blood loss (Acute) 1. Acute blood loss normocytic anemia 2/2 acute GI bleed suspected upper -she is status post 4 units packed red blood cells so far. Continues to have black stools. No abdominal pain, nausea or vomiting. Last bowel movement this morning. She will undergo repeat EGD per Dr. Lopez today. Continue PPI. 2. Hypotension 2/2 acute blood loss -improved. Now out of the ICU. Will check orthostatics today after EGD. 3. Hx of Brain bleed 3 years ago -no chronic deficits. 4. Nicotine abuse - strongly encouraged complete cessation 5. Hx hematuria - follows Jose Enrique 6. Hx of Bleeding internal hemorrhoids DVT ppx: SCDs Dispo: Repeat EGD today. Patient seen by Zak Marshall PA-C under the supervision of Dr. Antunez <Bob Antunez - Last Filed: 07/17/17 14:03> - Physical Exam General: Alert, No apparent distress HEENT: Atraumatic, Normocephalic Lungs: Clear to auscultation, Normal air movement, No rhonchi, No wheeze Cardiovascular: Regular rate, Regular Rhythm, Normal S1, Normal S2, No murmurs Abdomen: Bowel Sounds Present, Soft, Non Tender, Non-Distended Extremities: No edema, No Calf Tenderness Skin: No rashes, No breakdown Psych/Mental Status: Normal Affect, Appropriate Vital Signs Temp Pulse Resp BP Pulse Ox 36.5 C L 77 16 108/53 L 100 07/17/17 13:28 07/17/17 13:28 07/17/17 13:28 07/17/17 13:28 07/17/17 13:28 Oxygen Delivery Method Room Air Weight: 91.6 kg Body Mass Index (BMI) 30.7 Intake and Output for Last 24 Hours 07/15/17 07/16/17 07/17/17 23:59 23:59 23:59 Intake Total 2734 / 2734 4063 / 4063 2436 / 2436 Output Total 800 / 800 1350 / 1350 1300 / 1300 Balance 1934 / 1934 2713 / 2713 1136 / 1136 Laboratory Tests Past 24 Hrs 07/16/17 07/17/17 07/17/17 17:15 05:40 05:40 WBC 5.7 RBC 2.95 L Hgb 9.9 L 8.8 L Hct 29.9 L 27.0 L MCV 91.5 MCH 29.8 MCHC 32.6 RDW 15.8 H RDW Differential 51.0 H Plt Count 148 L MPV 10.2 Immature Gran % (Auto) 0.000 Neut % (Auto) 66.4 Lymph % (Auto) 24.0 [place] % (Auto) 6.7 Eos % (Auto) 2.5 Baso % (Auto) 0.4 Absolute Neuts (auto) 3.8 Absolute Lymphs (auto) 1.36 Total Counted Not Reportable PT 16.0 H INR 1.3 APTT 28.9 Assessment/Plan Seen and examined independently. Agree with the above note the physician medical receptionist assistant. 1. Acute blood loss anemia Stable. Status post 4 units of packed red blood cells. No current need for transfusions at this time. Secondary to bleeding ulcer. 2. Peptic ulcer disease On Protonix drip Had a repeat EGD today. Discussed with Dr. Davis, concerns for possible mass. Biopsy was performed. Code Visit Inpatient E&M: 63069 Subs Hosp L2
--- NOTE | 2017-07-17 12:17 | PN_ITS ---
<Zak Marshall - Last Filed: 07/17/17 12:14> Patient Problems: Active and Suspected Problems GI bleed requiring more than 4 units of blood in 24 hours, ICU, or surgery ( Acute) Hemorrhagic shock (Acute) Acute blood loss anemia (Acute) Hypotension due to blood loss (Acute) Subjective: The patient is resting comfortably in bed or chair at bedside. She had a bowel movement this morning with more black stools. She has no abdominal pain. No further dizziness or lightheadedness. No nausea or vomiting. She is waiting to undergo an EGD repeat today. - Physical Exam General: Alert, Oriented x3, Cooperative HEENT: Atraumatic, PERRLA, EOMI, Normocephalic Neck: Supple, No JVD, Negative Carotid Bruits Lungs: Clear to auscultation, Normal air movement Cardiovascular: Regular rate, No murmurs Abdomen: Bowel Sounds Present, Soft, Non Tender Extremities: No edema, Capillary Refill Less than 3 Seconds Skin: No rashes, No breakdown Musculoskeletal: No Tenderness to Palpation of Joints or Extremities Neurological: Cranial nerves II-XII grossly intact Psych/Mental Status: Normal Affect, Appropriate, Alert and oriented to time, place, person, mood and affect Vital Signs Temp Pulse Resp BP Pulse Ox 97.7 F L 78 18 106/52 L 100 07/17/17 10:32 07/17/17 10:32 07/17/17 10:32 07/17/17 10:32 07/17/17 10:32 Oxygen Delivery Method Room Air Weight: 91.6 kg Body Mass Index (BMI) 30.7 Intake and Output for Last 24 Hours 07/15/17 07/16/17 07/17/17 23:59 23:59 23:59 Intake Total 2734 / 2734 4063 / 4063 1536 / 1536 Output Total 800 / 800 1350 / 1350 1300 / 1300 Balance 1934 / 1934 2713 / 2713 236 / 236 Laboratory Tests Past 24 Hrs 07/16/17 07/17/17 07/17/17 17:15 05:40 05:40 WBC 5.7 RBC 2.95 L Hgb 9.9 L 8.8 L Hct 29.9 L 27.0 L MCV 91.5 MCH 29.8 MCHC 32.6 RDW 15.8 H RDW Differential 51.0 H Plt Count 148 L MPV 10.2 Immature Gran % (Auto) 0.000 Neut % (Auto) 66.4 Lymph % (Auto) 24.0 [place] % (Auto) 6.7 Eos % (Auto) 2.5 Baso % (Auto) 0.4 Absolute Neuts (auto) 3.8 Absolute Lymphs (auto) 1.36 Total Counted Not Reportable PT 16.0 H INR 1.3 APTT 28.9 Assessment/Plan Active and Suspected Problems GI bleed requiring more than 4 units of blood in 24 hours, ICU, or surgery ( Acute) Hemorrhagic shock (Acute) Acute blood loss anemia (Acute) Hypotension due to blood loss (Acute) 1. Acute blood loss normocytic anemia 2/2 acute GI bleed suspected upper -she is status post 4 units packed red blood cells so far. Continues to have black stools. No abdominal pain, nausea or vomiting. Last bowel movement this morning. She will undergo repeat EGD per Dr. Lopez today. Continue PPI. 2. Hypotension 2/2 acute blood loss -improved. Now out of the ICU. Will check orthostatics today after EGD. 3. Hx of Brain bleed 3 years ago -no chronic deficits. 4. Nicotine abuse - strongly encouraged complete cessation 5. Hx hematuria - follows Jose Enrique 6. Hx of Bleeding internal hemorrhoids DVT ppx: SCDs Dispo: Repeat EGD today. Patient seen by Zak Marshall PA-C under the supervision of Dr. Antunez <Bob Antunez - Last Filed: 07/17/17 14:03> - Physical Exam General: Alert, No apparent distress HEENT: Atraumatic, Normocephalic Lungs: Clear to auscultation, Normal air movement, No rhonchi, No wheeze Cardiovascular: Regular rate, Regular Rhythm, Normal S1, Normal S2, No murmurs Abdomen: Bowel Sounds Present, Soft, Non Tender, Non-Distended Extremities: No edema, No Calf Tenderness Skin: No rashes, No breakdown Psych/Mental Status: Normal Affect, Appropriate Vital Signs Temp Pulse Resp BP Pulse Ox 36.5 C L 77 16 108/53 L 100 07/17/17 13:28 07/17/17 13:28 07/17/17 13:28 07/17/17 13:28 07/17/17 13:28 Oxygen Delivery Method Room Air Weight: 91.6 kg Body Mass Index (BMI) 30.7 Intake and Output for Last 24 Hours 07/15/17 07/16/17 07/17/17 23:59 23:59 23:59 Intake Total 2734 / 2734 4063 / 4063 2436 / 2436 Output Total 800 / 800 1350 / 1350 1300 / 1300 Balance 1934 / 1934 2713 / 2713 1136 / 1136 Laboratory Tests Past 24 Hrs 07/16/17 07/17/17 07/17/17 17:15 05:40 05:40 WBC 5.7 RBC 2.95 L Hgb 9.9 L 8.8 L Hct 29.9 L 27.0 L MCV 91.5 MCH 29.8 MCHC 32.6 RDW 15.8 H RDW Differential 51.0 H Plt Count 148 L MPV 10.2 Immature Gran % (Auto) 0.000 Neut % (Auto) 66.4 Lymph % (Auto) 24.0 [place] % (Auto) 6.7 Eos % (Auto) 2.5 Baso % (Auto) 0.4 Absolute Neuts (auto) 3.8 Absolute Lymphs (auto) 1.36 Total Counted Not Reportable PT 16.0 H INR 1.3 APTT 28.9 Assessment/Plan Seen and examined independently. Agree with the above note the physician food and beverage assistant. 1. Acute blood loss anemia * Stable. Status post 4 units of packed red blood cells. No current need for transfusions at this time. * Secondary to bleeding ulcer. 2. Peptic ulcer disease * On Protonix drip * Had a repeat EGD today. Discussed with Dr. Davis, concerns for possible mass. Biopsy was performed. Code Visit Inpatient E&M: 18128 Subs Hosp L2
--- NOTE | 2017-07-17 12:19 | EGD_PTH ---
PATIENT: CARLA HARRISON LOC: MS2 U#:[id number] AGE/SX: 67/F ROOM: MS211 RE07/15/[address]: Dr. Bob Antunez DO : 1950 BED: 1 DIS: 07/18/2017 SPEC #: [id number] RECD: 07/17/17 12:41 STATUS: RACHAEL REPartha #: [id number] SALAS: 07/17/17 12:[address]: Padilla German DEPT: SURGICAL PATHOLOGY RECD BY: Clay Hoffmann ENTERED: 07/17/17 13:58 SP TYPE: EGD BIOPSY OTHR DR: MD Dr. Bob Underwood DO Dr. Lisa Malys, DO Dr. Mark Tereletsky, Tissues: A - Duodenum, NOS B - Gastric mucous membrane Procedures: Surgery Specimen Level IV Comments: @ Ordering doctor for SUIV edited from to @ by DIVYA at 07/18/17818 @ Submitting doctor edited from to @ by DIVYA at 07/18/17818 HEADER OPERATION: EGD with biopsy PRE-OP DIAGNOSIS: GI bleed TISSUE SUBMITTED: A ? Duodenum area of stenosis biopsy, B ? Antral biopsy MICROSCOPIC DIAGNOSIS A. Duodenum, biopsy: No significant pathologic change. No evidence of enteritis. B. Gastric antrum, biopsy: Gastritis, moderate to severe. AM:amber 07/18/17 COMMENT B. The results of immunohistochemistry for Helicobacter pylori will be reported separately ([id number]). MICROSCOPIC DESCRIPTION Slides are reviewed. GROSS DESCRIPTION A. Received in fixative is one container labeled with the patient's name and designated duodenum. The specimen consists of one irregular fragment of light steele soft tissue that measures 0.6 x 0.3 x 0.1 cm. The specimen is totally submitted in one cassette. B - Received in fixative is one container labeled with the patient's name and designated antrum biopsy. The specimen consists of one irregular fragment of light steele soft tissue that measures 0.5 x 0.2 x 0.1 cm. The specimen is totally submitted in one cassette. / OLIMPIA:amber 07/17/17 TC:3 CPT: 26888 x2
--- NOTE | 2017-07-17 12:30 | CT_ITS ---
STUDY: CT ABDOMEN AND PELVIS WITH CONTRAST REASON FOR EXAM: Female, 67 years old. BLOATING, RECENT GI BLEED RADIATION DOSAGE (If Supplied By Facility): CTDIvol = ( 18.70 ) mGy, DLP = ( 1223.70 ) mGycm TECHNIQUE: Transaxial images were obtained from the dome of the diaphragm to the symphysis pubis with oral contrast. 100 ml of Isovue 300 contrast was administered. Sagittal and coronal images were reconstructed. Individualized dose optimization techniques were used for this CT. COMPARISON: CT Abdomen/Pelvis Mar 15 2017 7:54am FINDINGS: Small left pleural effusion. Minimal lingular and left lower lobe alveolar infiltrate. Scarring of the right lower lobe. Normal liver. Mild distention of the gallbladder. Pericholecystic fluid is visualized. There is dilation of the common bile duct. A common bile duct stone is noted distally. This measures 4.3 mm. Series 2 image 42. Common bile duct diameter is 12 mm. Normal spleen. Normal pancreas. Normal bilateral adrenal glands. Normal right kidney. Peripelvic cysts of the left kidney. Normal visualized stomach. Normal small intestine. There are multiple colonic diverticula consistent with diverticulosis. The appendix is visualized and appears normal. There is diffuse atherosclerotic calcification of the abdominal aorta, without a demonstrated aneurysm. Normal inferior vena cava. Normal retroperitoneum. Normal urinary bladder. Normal visualized uterus. There is free fluid in the pelvis. There are bilateral tubal ligation clips. Hemangioma of the L1 vertebral body. Normal abdominal wall. Normal osseous structures. CT/Abdomen/Pelvis WITH Contrast IMPRESSION: Small left pleural effusion. Minimal lingular and left lower lobe alveolar infiltrate. Mild distention of the gallbladder. Pericholecystic fluid is visualized. No visualized calcified gallstones. There is dilation of the common bile duct. A common bile duct stone is noted distally There is free fluid in the pelvis. There are calcifications of the abdominal aorta. This is consistent for atherosclerotic disease. There is no abdominal aortic aneurysm. There are multiple diverticuli of the colon. There is diverticulosis but no radiographic signs for diverticulitis. Electronically Signed: Jong Pulido MD at 16:27 EST , Service support ,
[2017-07-17 14:23] LABS: Hematocrit 28.9 % (37-47); Hemoglobin 9.7 g/dl (12.0-15.0)
--- NOTE | 2017-07-17 17:26 | MRI_ITS ---
STUDY: MR CHOLANGIOPANCREATOGRAPHY (MRCP) REASON FOR EXAM: Female, 67 years old. Common bile duct stone Pt admitted for GI bleed, abd pain TECHNIQUE: Standard MRCP technique was utilized. COMPARISON: CT Abdomen/Pelvis Jul 17 2017 3:21pm FINDINGS: Small left pleural effusion. Pericholecystic fluid on the gallbladder. Gall Bladder: Small round- gravel like gallstones. Cystic duct: Normal with no demonstrated fixed filling defect. Intrahepatic ducts: Normal visualized intrahepatic ducts with no demonstrated fixed filling defect, dilation or stricture. Common hepatic duct: Normal with no demonstrated fixed filling defect, dilation or stricture. Common bile duct: Dilated. It is 11 mm in diameter. Common bile duct stone is not visualized. Pancreatic duct: Normal with no demonstrated fixed filling defect, dilation or stricture. MRI/MRCP Abdomen without Contrast IMPRESSION: Small left pleural effusion. Cholelithiasis. Pericholecystic fluid or gallbladder. Cholecystitis should be considered. Common bile duct stone is not visualized. Finding on the prior CT scan may be related to volume averaging of the gallbladder lumen. Electronically Signed: Jong Pulido MD at 22:08 EST , Service support ,
--- NOTE | 2017-07-17 17:47 | PCM.OPRPT ---
Problem List (1) GI bleed requiring more than 4 units of blood in 24 hours, ICU, or surgery Status: Acute (2) Hemorrhagic shock Status: Acute (3) Obesity Status: Chronic (4) SDH (subdural hematoma) Status: Chronic Report of Operation Date of Procedure: 07/17/17 Pre-Operative Diagnosis: GI bleed-hemorrhagic shock-melena Post-Operative Diagnosis: post pyloric edema mass versus healing ulcer in first portion duodenum v-no signs of active current bleeding Surgery/Procedure Performed:: EGD with biopsy public address system operator: None Type of Anesthesia:: IV Sedation, MAC Anesthesiologist: Hayes Rowe ASA3 Specimen's removed: duodenal, gastric Description of Procedure: The patient was brought to the endoscopy suite. Sign in was performed verifying patient, site, planned procedure, critical nursing information, the patient was monitored with cardiac, pulse oximetric, and blood pressure monitoring devices. anesthesia provided monitored anasthetic care Following IV sedation and after the oropharynx was sprayed with Cetacaine spray, a video gastroscope was inserted in the oropharynx and advanced down the esophagus without difficulty. The scope was advanced through the stomach, to the pylorus/first portion of the duodenum. this area still demonstrated significant edema. It was no active bleeding in the stomach prior to this area. The scope was able to be advanced beyond an acute angle past the area of inflammation into normal appearing 2nd portion of the duodenum. As the scope was withdrawn, An area of endema/inflammation was seen with opposite wall of the duodenum appearing normal. A biopsy was obtained. The stomach appeared unremarkable. Biopsies were obtained for H. pylori and pathology. The patient tolerated the procedure well and was transferred to recovery in stable condition.
--- NOTE | 2017-07-17 17:53 | OP.PCM_ITS ---
Problem List (1) GI bleed requiring more than 4 units of blood in 24 hours, ICU, or surgery Status: Acute (2) Hemorrhagic shock Status: Acute (3) Obesity Status: Chronic (4) SDH (subdural hematoma) Status: Chronic Report of Operation Date of Procedure: 07/17/17 Pre-Operative Diagnosis: GI bleed-hemorrhagic shock-melena Post-Operative Diagnosis: post pyloric edema mass versus healing ulcer in first portion duodenum v-no signs of active current bleeding Surgery/Procedure Performed:: EGD with biopsy soldering machine setter: None Type of Anesthesia:: IV Sedation, MAC Anesthesiologist: Hayes Rowe ASA3 Specimen's removed: duodenal, gastric Description of Procedure: The patient was brought to the endoscopy suite. Sign in was performed verifying patient, site, planned procedure, critical nursing information, the patient was monitored with cardiac, pulse oximetric, and blood pressure monitoring devices. anesthesia provided monitored anasthetic care Following IV sedation and after the oropharynx was sprayed with Cetacaine spray , a video gastroscope was inserted in the oropharynx and advanced down the esophagus without difficulty. The scope was advanced through the stomach, to the pylorus/first portion of the duodenum. this area still demonstrated significant edema. It was no active bleeding in the stomach prior to this area. The scope was able to be advanced beyond an acute angle past the area of inflammation into normal appearing 2nd portion of the duodenum. As the scope was withdrawn, An area of endema/inflammation was seen with opposite wall of the duodenum appearing normal. A biopsy was obtained. The stomach appeared unremarkable. Biopsies were obtained for H. pylori and pathology. The patient tolerated the procedure well and was transferred to recovery in stable condition.
[2017-07-18] MEDS: 0.9% Normal Saline 1,000 ML 100 ML IV
[2017-07-18 03:24] VITALS: BP 105/50; PULSE 80; RESP 18; TEMP 36.7; O2SAT 97
[2017-07-18 04:00] VITALS: PULSE 76
[2017-07-18 06:42] LABS: Absolute Lymphocyte Count 1.25 X10^3/ul (0.83-4.51); Absolute Neutrophil Count 4.2 X10^3/uL (2.0-7.7); Basophil# 0.02 X10^3/uL; Basophil% 0.3 % (0-1); Eosinophil# 0.22 X10^3/uL; Eosinophils% 3.6 % (0-5); Hemoglobin 9.7 g/dl (12.0-15.0); Lymphocyte # 1.25 X10^3/ul (4.0); Lymphocyte % 20.4 % (19-41); Mean Corp Hgb Conc 33.4 g/gl (32-36); Mean Corpuscular Hgb 30.4 pg (27.0-32.0); Mean Corpuscular Volume 90.9 fL (81-99); Mean Platelet Vol. 10.2 fl (6.2-12.0); Monocyte# 0.41 X10^3/uL; Monocyte% 6.7 % (0-10); Neutrophil # 4.22 X10^3/uL (2.7-7.7); Neutrophil % 68.7 % (47-70); Platelet Count 175 K/mm3 (150-450); RBC Distribution Width CV 15.2 % (11.6-14.6); RBC Distribution Width SD 49.3 fl (35.1-43.9); Red Blood Count 3.19 M/mm3 (4.2-5.4); White Blood Count 6.1 K/mm3 (4.4-11.0)
[2017-07-18 06:46] LABS: POSITIVE COUNT NO; POSITIVE DIFFERENTIAL NO; POSITIVE MORPHOLOGY NO
[2017-07-18 07:08] LABS: AST(SGOT) 20 U/L (15-37); Alanine Aminotransfer ALT/SGPT 24 U/L (13-56); Albumin, Serum 2.5 g/dL (3.2-5.0); Alkaline Phosphatase 48 U/L (45-117); Anion Gap 9 (5-15); BUN 6 mg/dL (7-18); Calcium,Total 7.5 mg/dL (8.5-10.1); Chloride 113 mmol/L (98-107); Creatinine, Serum 0.46 mg/dL (0.55-1.02); EST Glomerular Filtration Rate 144 mL/min (>60); Est Glom Filt Rate - Afr Amer 174 mL/min (>60); Estimated Creatinine Clearance 55.82 ml/min; Globulin 2.6 g/dL (2.2-4.2); Glucose 92 mg/dL (74-106); Potassium 3.3 mmol/L (3.5-5.1); Protein, Total 5.1 g/dL (6.4-8.2); Sodium Level 145 mmol/L (136-145)
--- NOTE | 2017-07-18 08:23 | PCM.PROGNOTE ---
Patient Problems: Active and Suspected Problems GI bleed requiring more than 4 units of blood in 24 hours, ICU, or surgery (Acute) Hemorrhagic shock (Acute) Acute blood loss anemia (Acute) Hypotension due to blood loss (Acute) Subjective: Patient was seen and examined. She is up ambulating the halls with no complaints. She denies any shortness of breath, chest discomfort, abdominal pain, nausea or vomiting. She did have some diarrhea earlier this morning, denies cramping. Reports she has not had any further dizziness in over 24 hours. Patient remains afebrile and hemodynamically stable. She is maintaining appropriate saturations on room air. Objective: CT of the abdomen/pelvis 07/17 showed small left pleural effusion, minimal lingular and left lower lobe alveolar infiltrate. There is mild distention of the gallbladder and pericholecystic fluid is visualized. There is no visualized calcified gallstones. There is dilation of the common bile duct, with CBD stone noted distally. There is free fluid in the pelvis and calcifications of the abdominal aorta. No aneurysm. Multiple diverticuli of colon. MRCP 07/17 revealed a small left pleural effusion, cholelithiasis and pericholecystic fluid or gallbladder. Cholecystitis should be considered. The common bile duct stone was not visualized. - Physical Exam General: Alert, Oriented x3, Cooperative, No apparent distress, Well developed, Well nourished HEENT: Atraumatic, Normocephalic Oral: Moist Mucosa, No Gingival or Mucosal Lesions/ Ulcerations, - - dentures Neck: Supple, No JVD, No Nodes, Trachea Midline Lungs: Clear to auscultation, No rhonchi, No wheeze, No rales, Diminished - bases Cardiovascular: Regular rate, Regular Rhythm, Normal S1, Normal S2, No murmurs, No rub noted, No Gallop Abdomen: Bowel Sounds Present, Soft, Non Tender, Non-Distended, No Hepato-splenomegaly, Obese Extremities: No clubbing, No cyanosis, No edema, Capillary Refill Less than 3 Seconds Skin: No rashes, No breakdown Musculoskeletal: No Tenderness to Palpation of Joints or Extremities Lymphatic: No Cervical, Supraclavicular, or Inguinal Adenopathy Neurological: Cranial nerves II-XII grossly intact, Neuro grossly intact, Motor Exam 5/5 strength throughout Psych/Mental Status: Alert and oriented to time, place, person, mood and affect Vital Signs Temp Pulse Resp BP Pulse Ox 98.1 F 76 18 105/50 L 97 07/18/17 03:24 07/18/17 04:00 07/18/17 03:24 07/18/17 03:24 07/18/17 03:24 Oxygen Delivery Method Room Air Weight: 203 lb 0.732 oz Body Mass Index (BMI) 30.7 Intake and Output for Last 24 Hours 07/16/17 07/17/17 07/18/17 23:59 23:59 23:59 Intake Total 4063 / 4063 3267 / 3267 1627 / 1627 Output Total 1350 / 1350 1900 / 1900 600 / 600 Balance 2713 / 2713 1367 / 1367 1027 / 1027 Laboratory Tests Past 24 Hrs 07/17/17 07/18/17 07/18/17 14:10 06:30 06:30 WBC 6.1 RBC 3.19 L Hgb 9.7 L 9.7 L Hct 28.9 L 29.0 L MCV 90.9 MCH 30.4 MCHC 33.4 RDW 15.2 H RDW Differential 49.3 H Plt Count 175 MPV 10.2 Immature Gran % (Auto) 0.300 Neut % (Auto) 68.7 Lymph % (Auto) 20.4 Orange % (Auto) 6.7 Eos % (Auto) 3.6 Baso % (Auto) 0.3 Absolute Neuts (auto) 4.2 Absolute Lymphs (auto) 1.25 Total Counted Not Reportable Sodium 145 Potassium 3.3 L Chloride 113 H Carbon Dioxide 23.0 Anion Gap 9 BUN 6 L Creatinine 0.46 L Estim Creat Clear Calc 55.82 Est GFR (MDRD) Af Amer 174 Est GFR (MDRD) Non-Af 144 BUN/Creatinine Ratio 13.0 Glucose 92 Calcium 7.5 L Total Bilirubin 1.20 H AST 20 ALT 24 Alkaline Phosphatase 48 Total Protein 5.1 L Albumin 2.5 L Globulin 2.6 Albumin/Globulin Ratio 1.0 Assessment/Plan Active and Suspected Problems GI bleed requiring more than 4 units of blood in 24 hours, ICU, or surgery (Acute) Hemorrhagic shock (Acute) Acute blood loss anemia (Acute) Hypotension due to blood loss (Acute) RECOMMENDATIONS: 1. Discontinue IV fluids 2. Continue to monitor blood counts daily 3. Transfuse if hemoglobin drops below 7 g/dL 4. Continue as needed Zofran 5. Encourage incentive spirometer use while in bed 6. Increase activity as tolerated 7. Advance diet per surgery/hospitalist recommendations 8. Given the lack of need for outboard motors experimental mechanic services, will sign off at this time. IMPRESSIONS: 1. Acute blood loss anemia secondary to upper GI bleed The patient is status post upper endoscopy. Continue PPI. Likely okay to discontinue IV fluids at this time. Monitor blood counts daily. Transfuse if hemoglobin is less than 7 g/dL. repeat upper endoscopy 07/17 showed no active bleeding. There is still significant edema and inflammation, biopsy was obtained. MRCP 07/17 showed cholelithiasis, possible cholecystitis. However, patient is not having any pain and is tolerating clear liquids. Her diet is being advanced, we will see how she does and she could possibly be discharged later today with followup per Dr. German. Given the lack of need for outboard motors experimental mechanic services, will sign off the patient at this time. Please do not hesitate to contact us with any further questions or concerns. 2. Hypotension The patient's blood pressures are at her baseline. She is mentating appropriately and had negative orthostatics. She is asymptomatic. 3. Obesity/GERD/tobacco dependence Complicates care, management, recovery and prognosis. Smoking cessation is advisable. This note was generated with [employer] software. It may contain incorrect words, spelling, and punctuation that were not noted in checking the note before signing.
--- NOTE | 2017-07-18 08:27 | PN_ITS ---
Patient Problems: Active and Suspected Problems GI bleed requiring more than 4 units of blood in 24 hours, ICU, or surgery ( Acute) Hemorrhagic shock (Acute) Acute blood loss anemia (Acute) Hypotension due to blood loss (Acute) Subjective: Patient was seen and examined. She is up ambulating the halls with no complaints. She denies any shortness of breath, chest discomfort, abdominal pain, nausea or vomiting. She did have some diarrhea earlier this morning, denies cramping. Reports she has not had any further dizziness in over 24 hours. Patient remains afebrile and hemodynamically stable. She is maintaining appropriate saturations on room air. Objective: CT of the abdomen/pelvis 07/17 showed small left pleural effusion, minimal lingular and left lower lobe alveolar infiltrate. There is mild distention of the gallbladder and pericholecystic fluid is visualized. There is no visualized calcified gallstones. There is dilation of the common bile duct, with CBD stone noted distally. There is free fluid in the pelvis and calcifications of the abdominal aorta. No aneurysm. Multiple diverticuli of colon. MRCP 07/17 revealed a small left pleural effusion, cholelithiasis and pericholecystic fluid or gallbladder. Cholecystitis should be considered. The common bile duct stone was not visualized. - Physical Exam General: Alert, Oriented x3, Cooperative, No apparent distress, Well developed, Well nourished HEENT: Atraumatic, Normocephalic Oral: Moist Mucosa, No Gingival or Mucosal Lesions/ Ulcerations, - - dentures Neck: Supple, No JVD, No Nodes, Trachea Midline Lungs: Clear to auscultation, No rhonchi, No wheeze, No rales, Diminished - bases Cardiovascular: Regular rate, Regular Rhythm, Normal S1, Normal S2, No murmurs, No rub noted, No Gallop Abdomen: Bowel Sounds Present, Soft, Non Tender, Non-Distended, No Hepato- splenomegaly, Obese Extremities: No clubbing, No cyanosis, No edema, Capillary Refill Less than 3 Seconds Skin: No rashes, No breakdown Musculoskeletal: No Tenderness to Palpation of Joints or Extremities Lymphatic: No Cervical, Supraclavicular, or Inguinal Adenopathy Neurological: Cranial nerves II-XII grossly intact, Neuro grossly intact, Motor Exam 5/5 strength throughout Psych/Mental Status: Alert and oriented to time, place, person, mood and affect Vital Signs Temp Pulse Resp BP Pulse Ox 98.1 F 76 18 105/50 L 97 07/18/17 03:24 07/18/17 04:00 07/18/17 03:24 07/18/17 03:24 07/18/17 03:24 Oxygen Delivery Method Room Air Weight: 203 lb 0.732 oz Body Mass Index (BMI) 30.7 Intake and Output for Last 24 Hours 07/16/17 07/17/17 07/18/17 23:59 23:59 23:59 Intake Total 4063 / 4063 3267 / 3267 1627 / 1627 Output Total 1350 / 1350 1900 / 1900 600 / 600 Balance 2713 / 2713 1367 / 1367 1027 / 1027 Laboratory Tests Past 24 Hrs 07/17/17 07/18/17 07/18/17 14:10 06:30 06:30 WBC 6.1 RBC 3.19 L Hgb 9.7 L 9.7 L Hct 28.9 L 29.0 L MCV 90.9 MCH 30.4 MCHC 33.4 RDW 15.2 H RDW Differential 49.3 H Plt Count 175 MPV 10.2 Immature Gran % (Auto) 0.300 Neut % (Auto) 68.7 Lymph % (Auto) 20.4 [place] % (Auto) 6.7 Eos % (Auto) 3.6 Baso % (Auto) 0.3 Absolute Neuts (auto) 4.2 Absolute Lymphs (auto) 1.25 Total Counted Not Reportable Sodium 145 Potassium 3.3 L Chloride 113 H Carbon Dioxide 23.0 Anion Gap 9 BUN 6 L Creatinine 0.46 L Estim Creat Clear Calc 55.82 Est GFR (MDRD) Af Amer 174 Est GFR (MDRD) Non-Af 144 BUN/Creatinine Ratio 13.0 Glucose 92 Calcium 7.5 L Total Bilirubin 1.20 H AST 20 ALT 24 Alkaline Phosphatase 48 Total Protein 5.1 L Albumin 2.5 L Globulin 2.6 Albumin/Globulin Ratio 1.0 Assessment/Plan Active and Suspected Problems GI bleed requiring more than 4 units of blood in 24 hours, ICU, or surgery ( Acute) Hemorrhagic shock (Acute) Acute blood loss anemia (Acute) Hypotension due to blood loss (Acute) RECOMMENDATIONS: 1. Discontinue IV fluids 2. Continue to monitor blood counts daily 3. Transfuse if hemoglobin drops below 7 g/dL 4. Continue as needed Zofran 5. Encourage incentive spirometer use while in bed 6. Increase activity as tolerated 7. Advance diet per surgery/hospitalist recommendations 8. Given the lack of need for banquet lead services, will sign off at this time. IMPRESSIONS: 1. Acute blood loss anemia secondary to upper GI bleed The patient is status post upper endoscopy. Continue PPI. Likely okay to discontinue IV fluids at this time. Monitor blood counts daily. Transfuse if hemoglobin is less than 7 g/dL. repeat upper endoscopy 07/17 showed no active bleeding. There is still significant edema and inflammation, biopsy was obtained. MRCP 07/17 showed cholelithiasis, possible cholecystitis. However, patient is not having any pain and is tolerating clear liquids. Her diet is being advanced, we will see how she does and she could possibly be discharged later today with followup per Dr. German. Given the lack of need for banquet lead services, will sign off the patient at this time. Please do not hesitate to contact us with any further questions or concerns. 2. Hypotension The patient's blood pressures are at her baseline. She is mentating appropriately and had negative orthostatics. She is asymptomatic. 3. Obesity/GERD/tobacco dependence Complicates care, management, recovery and prognosis. Smoking cessation is advisable. This note was generated with [employer]ation software. It may contain incorrect words, spelling, and punctuation that were not noted in checking the note before signing.
[2017-07-18 09:19] VITALS: BP 131/73; PULSE 81; RESP 18; TEMP 36.3; O2SAT 98
[2017-07-18] MEDS: Menthol/Lanolin/Calamine/Znox 113 GM Tube 1 APPLIC TOPICAL (09:26)
[2017-07-18] MEDS: Pantoprazole Sodium 40 MG Tablet PO (09:29)
--- NOTE | 2017-07-18 12:23 | PN_ITS ---
Patient Problems: Active and Suspected Problems GI bleed requiring more than 4 units of blood in 24 hours, ICU, or surgery ( Acute) Hemorrhagic shock (Acute) Acute blood loss anemia (Acute) Hypotension due to blood loss (Acute) Subjective: Patient resting comfortably in chair at bedside, has been ambulating around the unit this AM with no discomfort. No abd pain, no nausea, vomiting, no dizziness or LH. - Physical Exam General: Alert, Oriented x3, Cooperative HEENT: Atraumatic, PERRLA, EOMI, Normocephalic Neck: Supple, No JVD, Negative Carotid Bruits Lungs: Clear to auscultation, Normal air movement Cardiovascular: Regular rate, No murmurs Abdomen: Bowel Sounds Present, Soft, Non Tender Extremities: No edema, Capillary Refill Less than 3 Seconds Skin: No rashes, No breakdown Musculoskeletal: No Tenderness to Palpation of Joints or Extremities Neurological: Cranial nerves II-XII grossly intact Psych/Mental Status: Normal Affect, Appropriate, Alert and oriented to time, place, person, mood and affect Vital Signs Temp Pulse Resp BP Pulse Ox 97.3 F L 81 18 131/73 H 98 07/18/17 09:19 07/18/17 09:19 07/18/17 09:19 07/18/17 09:19 07/18/17 09:19 Oxygen Delivery Method Room Air Weight: 92.1 kg Body Mass Index (BMI) 30.7 Intake and Output for Last 24 Hours 07/16/17 07/17/17 07/18/17 23:59 23:59 23:59 Intake Total 4063 / 4063 3267 / 3267 1627 / 1627 Output Total 1350 / 1350 1900 / 1900 600 / 600 Balance 2713 / 2713 1367 / 1367 1027 / 1027 Laboratory Tests Past 24 Hrs 07/17/17 07/18/17 07/18/17 14:10 06:30 06:30 WBC 6.1 RBC 3.19 L Hgb 9.7 L 9.7 L Hct 28.9 L 29.0 L MCV 90.9 MCH 30.4 MCHC 33.4 RDW 15.2 H RDW Differential 49.3 H Plt Count 175 MPV 10.2 Immature Gran % (Auto) 0.300 Neut % (Auto) 68.7 Lymph % (Auto) 20.4 [place] % (Auto) 6.7 Eos % (Auto) 3.6 Baso % (Auto) 0.3 Absolute Neuts (auto) 4.2 Absolute Lymphs (auto) 1.25 Total Counted Not Reportable Sodium 145 Potassium 3.3 L Chloride 113 H Carbon Dioxide 23.0 Anion Gap 9 BUN 6 L Creatinine 0.46 L Estim Creat Clear Calc 55.82 Est GFR (MDRD) Af Amer 174 Est GFR (MDRD) Non-Af 144 BUN/Creatinine Ratio 13.0 Glucose 92 Calcium 7.5 L Total Bilirubin 1.20 H AST 20 ALT 24 Alkaline Phosphatase 48 Total Protein 5.1 L Albumin 2.5 L Globulin 2.6 Albumin/Globulin Ratio 1.0 Assessment/Plan Active and Suspected Problems GI bleed requiring more than 4 units of blood in 24 hours, ICU, or surgery ( Acute) Hemorrhagic shock (Acute) Acute blood loss anemia (Acute) Hypotension due to blood loss (Acute) 1. Acute blood loss normocytic anemia 2/2 acute GI bleed suspected upper -2nd EGD revealed a post pyloric mass vs healing ulcer and no active bleeding. Her blood counts remain stable and she is resting comfortably. Her MRCP was questionable for cholecystitis and she has an elevated T bili, however she has no symptoms consistent with acute cholecystitis. She has had her diet advanced and has been placed on PPI BID for ulcer. 2. Hypotension 2/2 acute blood loss -improved. Now out of the ICU. Will check orthostatics today after EGD. 3. Hx of Brain bleed 3 years ago -no chronic deficits. 4. Nicotine abuse - strongly encouraged complete cessation 5. Hx hematuria - follows Jose Enrique 6. Hx of Bleeding internal hemorrhoids DVT ppx: SCDs Discharge planning: pending pts tolerance of diet. Patient seen by Zak Marshall PA-C under the supervision of Dr. Antunez
--- NOTE | 2017-07-18 13:32 | DCINST_ITS ---
- Discharge Diagnoses Current Active Problems: Current Active and Chronic Problems GI bleed requiring more than 4 units of blood in 24 hours, ICU, or surgery ( Acute) Hemorrhagic shock (Acute) Acute blood loss anemia (Acute) Hypotension due to blood loss (Acute) You will use the following diet at home:: No restrictions Your food should be the consistency of: Regular Your liquids should be the consistency of: Regular/Thin Discharge Activity: Return to Normal Activity Allergies/Adverse Reactions: Allergies Penicillins Allergy (Verified 07/15/17 05:38) Unknown prednisone Allergy (Verified 07/15/17 05:38) Unknown ibuprofen [From Advil] Adverse Reaction (Verified 07/15/17 05:38) Other Medications to take at Discharge Cholecalciferol (Vitamin D3) [Vitamin D3] 1,000 unit PO DAILY 07/15/17 Cyanocobalamin (Vitamin B-12) [Vitamin B-12] 1,000 mcg PO DAILY 07/15/17 Pantoprazole Sodium [Protonix] 40 mg PO BID #60 tab 07/18/17 The following prescriptions were given: Pantoprazole Sodium [Protonix] 40 mg PO BID #60 tab Primary Care Physician: Mary Smith DO [Primary Care Provider] - Please follow up with your Primary Care Physician in: 1-2 weeks Please Follow Up With: Padilla German MD When: 1-2 weeks Proposed Discharge Date: 07/18/17
--- NOTE | 2017-07-18 13:32 | PCM.DC.SUM ---
<Zak Marshall - Last Filed: 07/18/17 13:32> Discharge Date and Diagnosis Date of Admission: 07/15/17 Date of Discharge: 07/18/17 - Primary Discharge Diagnosis Active and Suspected Problems Acute blood loss anemia 2/2 upper GI bleed Hemorrhagic shock (Acute) 2/2 above Peptic ulcer vs mass Cholelithiasis Nicotine abuse Hx Brain bleed 3 years ago Hx bleeding internal hemorrhoids Hx Hematuria - Secondary Discharge Diagnosis Chronic Problems Obesity (Chronic) GERD (gastroesophageal reflux disease) (Chronic) SDH (subdural hematoma) (Chronic) Hospital Course and Treatment Imaging Results: CT/Abdomen/Pelvis WITH Contrast IMPRESSION: Small left pleural effusion. Minimal lingular and left lower lobe alveolar infiltrate. Mild distention of the gallbladder. Pericholecystic fluid is visualized. No visualized calcified gallstones. There is dilation of the common bile duct. A common bile duct stone is noted distally There is free fluid in the pelvis. There are calcifications of the abdominal aorta. This is consistent for atherosclerotic disease. There is no abdominal aortic aneurysm. There are multiple diverticuli of the colon. There is diverticulosis but no radiographic signs for diverticulitis. MRI/MRCP Abdomen without Contrast IMPRESSION: Small left pleural effusion. Cholelithiasis. Pericholecystic fluid or gallbladder. Cholecystitis should be considered. Common bile duct stone is not visualized. Finding on the prior CT scan may be related to volume averaging of the gallbladder lumen. Consultations: [facility] - intensive care [facility] Operations: None Procedures: EGD - x2 Summary of Care Provided: Physical exam on day of discharge: General: Resting comfortably NAD Psych: A/Ox3 normal affect HEENT: PEARRLA AT NC Neck: Supple NT CV: RRR no m/t/r/g/h Resp: CTA Abd: [id number] Soft NT no guarding or rigidity Ext: DP2+= no edema Skin: W/D normal turgor Lymph/Heme: No active bleeding or adenopathy Neuro: CN2-12 intact Hospital course: The patient is a 67 year old F with a hx of brain bleed, hematuria, and bleeding hemorrhoids who presented to the emergency room with multiple episodes of dark red and black blood in her stool with clots the night prior to arrival and the day of arrival with dizziness and lightheadedness on standing. She had a Hgb of 8.9, but was hypotensive. In the ER she underwent an EGD with Dr. German which revealed an area suspicious for duodenal ulcer but no active bleeding. She is placed on IV Protonix and admitted to the ICU as she was hypotensive and felt to be in hemorrhagic shock. She was given 4 units of packed red blood cells and IV fluids. The following day her blood pressure had improved and she was transferred to the medical surgical floor. She underwent a second EGD with Dr. Davis which revealed an area of inflammation possibly a mass versus an ulcer. A biopsy was taken. She was transitioned to p.o. PPI and her diet was advanced. She remained clinically stable without further symptoms of lightheadedness or dizziness. She was discharged home in stable condition will need to follow-up with surgery and with her PCP. This patient was seen by Zak Marshall PA-C under the supervision of Doctor Tulio. [] Discharge Diet: No Restrictions Discharge Activity: Return to Normal Activity Home Medications: Medications to take at Discharge Cholecalciferol (Vitamin D3) [Vitamin D3] 1,000 unit PO DAILY 07/15/17 Cyanocobalamin (Vitamin B-12) [Vitamin B-12] 1,000 mcg PO DAILY 07/15/17 Pantoprazole Sodium [Protonix] 40 mg PO BID #60 tab 07/18/17 Following Prescrptions Were Given to Patient: Pantoprazole Sodium [Protonix] 40 mg PO BID #60 tab Primary Care Physician: Mary Smith DO [Primary Care Provider] - Please follow up with your Primary Care Physician in: 1-2 weeks Please Follow Up With: Padilla German MD When: 1-2 weeks Disposition: Home Minutes spent on discharge:: 35 Patient Condition:: Stable Meaningful Use Info Meaningful Use Diagnoses (Choose all that apply): None applicable <Bob Antunez - Last Filed: 07/18/17 15:18> Discharge Date and Diagnosis - Secondary Discharge Diagnosis Chronic Problems Obesity (Chronic) GERD (gastroesophageal reflux disease) (Chronic) SDH (subdural hematoma) (Chronic) Hospital Course and Treatment Operations: None Procedures: EGD Summary of Care Provided: Patient seen and examined independently. Agree the above note by the physician financial administrative assistant. Is a 67-year-old white female presents with dark red and black stools. Patient did have acute blood loss anemia and did receive 4 units of packed red blood cells. Patient had an EGD that showed a duodenal ulcer but also noted swelling. She had a repeat EGD performed in that again showed swelling but was concerning for a mass. The patient underwent a CAT scan that showed gallstone in the bile duct, patient Kirstin underwent MRCP that did not show any gallstone but it was concerning for cholecystitis. Clinically, today, patient had no abdominal pain and a negative Marin sign therefore I do not feel patient had acute cholecystitis. Patient did have a biopsy on her second EGD the results of which patient will need follow-up with Dr. Davis. [] Discharge Diet: No Restrictions Discharge Activity: Return to Normal Activity Disposition: Home Minutes spent on discharge:: 35 Patient Condition:: Stable Meaningful Use Info Meaningful Use Diagnoses (Choose all that apply): None applicable Code Visit Inpatient E&M: 99679 Disch Hosp
--- NOTE | 2017-07-18 13:43 | DS.PCM_ITS ---
<Zak Marshall - Last Filed: 07/18/17 13:32> Discharge Date and Diagnosis Date of Admission: 07/15/17 Date of Discharge: 07/18/17 - Primary Discharge Diagnosis Active and Suspected Problems Acute blood loss anemia 2/2 upper GI bleed Hemorrhagic shock (Acute) 2/2 above Peptic ulcer vs mass Cholelithiasis Nicotine abuse Hx Brain bleed 3 years ago Hx bleeding internal hemorrhoids Hx Hematuria - Secondary Discharge Diagnosis Chronic Problems Obesity (Chronic) GERD (gastroesophageal reflux disease) (Chronic) SDH (subdural hematoma) (Chronic) Hospital Course and Treatment Imaging Results: CT/Abdomen/Pelvis WITH Contrast IMPRESSION: Small left pleural effusion. Minimal lingular and left lower lobe alveolar infiltrate. Mild distention of the gallbladder. Pericholecystic fluid is visualized. No visualized calcified gallstones. There is dilation of the common bile duct. A common bile duct stone is noted distally There is free fluid in the pelvis. There are calcifications of the abdominal aorta. This is consistent for atherosclerotic disease. There is no abdominal aortic aneurysm. There are multiple diverticuli of the colon. There is diverticulosis but no radiographic signs for diverticulitis. MRI/MRCP Abdomen without Contrast IMPRESSION: Small left pleural effusion. Cholelithiasis. Pericholecystic fluid or gallbladder. Cholecystitis should be considered. Common bile duct stone is not visualized. Finding on the prior CT scan may be related to volume averaging of the gallbladder lumen. Consultations: [facility] - intensive care [facility]-general surgery Operations: None Procedures: EGD - x2 Summary of Care Provided: Physical exam on day of discharge: General: Resting comfortably NAD Psych: A/Ox3 normal affect HEENT: PEARRLA AT NC Neck: Supple NT CV: RRR no m/t/r/g/h Resp: CTA Abd: [id number] Soft NT no guarding or rigidity Ext: DP2+= no edema Skin: W/D normal turgor Lymph/Heme: No active bleeding or adenopathy Neuro: CN2-12 intact Hospital course: The patient is a 67 year old F with a hx of brain bleed, hematuria, and bleeding hemorrhoids who presented to the emergency room with multiple episodes of dark red and black blood in her stool with clots the night prior to arrival and the day of arrival with dizziness and lightheadedness on standing. She had a Hgb of 8.9, but was hypotensive. In the ER she underwent an EGD with Dr. German which revealed an area suspicious for duodenal ulcer but no active bleeding. She is placed on IV Protonix and admitted to the ICU as she was hypotensive and felt to be in hemorrhagic shock. She was given 4 units of packed red blood cells and IV fluids. The following day her blood pressure had improved and she was transferred to the medical surgical floor. She underwent a second EGD with Dr. Davis which revealed an area of inflammation possibly a mass versus an ulcer. A biopsy was taken. She was transitioned to p.o. PPI and her diet was advanced. She remained clinically stable without further symptoms of lightheadedness or dizziness. She was discharged home in stable condition will need to follow-up with surgery and with her PCP. This patient was seen by Zak Marshall PA-C under the supervision of Doctor Tulio. [] Discharge Diet: No Restrictions Discharge Activity: Return to Normal Activity Home Medications: Medications to take at Discharge Cholecalciferol (Vitamin D3) [Vitamin D3] 1,000 unit PO DAILY 07/15/17 Cyanocobalamin (Vitamin B-12) [Vitamin B-12] 1,000 mcg PO DAILY 07/15/17 Pantoprazole Sodium [Protonix] 40 mg PO BID #60 tab 07/18/17 Following Prescrptions Were Given to Patient: Pantoprazole Sodium [Protonix] 40 mg PO BID #60 tab Primary Care Physician: Mary Smith DO [Primary Care Provider] - Please follow up with your Primary Care Physician in: 1-2 weeks Please Follow Up With: Padilla German MD When: 1-2 weeks Disposition: Home Minutes spent on discharge:: 35 Patient Condition:: Stable Meaningful Use Info Meaningful Use Diagnoses (Choose all that apply): None applicable <Bob Antunez - Last Filed: 07/18/17 15:18> Discharge Date and Diagnosis - Secondary Discharge Diagnosis Chronic Problems Obesity (Chronic) GERD (gastroesophageal reflux disease) (Chronic) SDH (subdural hematoma) (Chronic) Hospital Course and Treatment Operations: None Procedures: EGD Summary of Care Provided: Patient seen and examined independently. Agree the above note by the physician automotive parts counter assistant. Is a 67-year-old white female presents with dark red and black stools. Patient did have acute blood loss anemia and did receive 4 units of packed red blood cells. Patient had an EGD that showed a duodenal ulcer but also noted swelling. She had a repeat EGD performed in that again showed swelling but was concerning for a mass. The patient underwent a CAT scan that showed gallstone in the bile duct, patient Kirstin underwent MRCP that did not show any gallstone but it was concerning for cholecystitis. Clinically, today, patient had no abdominal pain and a negative Marin sign therefore I do not feel patient had acute cholecystitis. Patient did have a biopsy on her second EGD the results of which patient will need follow-up with Dr. Davis. [] Discharge Diet: No Restrictions Discharge Activity: Return to Normal Activity Disposition: Home Minutes spent on discharge:: 35 Patient Condition:: Stable Meaningful Use Info Meaningful Use Diagnoses (Choose all that apply): None applicable Code Visit Inpatient E&M: 03053 Disch Hosp
[2017-07-18 14:00] VITALS: BP 105/81; PULSE 94; RESP 18; TEMP 36.4; O2SAT 100
--- NOTE | 2017-07-18 15:25 | PCM.PN.SRG ---
Subjective: no complaints - Physical Exam General: Alert, Oriented x3 Lungs: Clear to auscultation, Normal air movement Cardiovascular: Regular rate, Regular Rhythm Abdomen: Bowel Sounds Present, Soft, Non Tender Vital Signs Temp Pulse Resp BP Pulse Ox 97.6 F L 94 18 105/81 H 100 07/18/17 14:00 07/18/17 14:00 07/18/17 14:00 07/18/17 14:00 07/18/17 14:00 Oxygen Delivery Method Room Air Weight: 92.1 kg Body Mass Index (BMI) 30.7 Intake and Output for Last 24 Hours 07/16/17 07/17/17 07/18/17 23:59 23:59 23:59 Intake Total 4063 / 4063 3267 / 3267 1627 / 1627 Output Total 1350 / 1350 1900 / 1900 800 / 800 Balance 2713 / 2713 1367 / 1367 827 / 827 Laboratory Tests Past 24 Hrs 07/18/17 07/18/17 06:30 06:30 WBC 6.1 RBC 3.19 L Hgb 9.7 L Hct 29.0 L MCV 90.9 MCH 30.4 MCHC 33.4 RDW 15.2 H RDW Differential 49.3 H Plt Count 175 MPV 10.2 Immature Gran % (Auto) 0.300 Neut % (Auto) 68.7 Lymph % (Auto) 20.4 [place] % (Auto) 6.7 Eos % (Auto) 3.6 Baso % (Auto) 0.3 Absolute Neuts (auto) 4.2 Absolute Lymphs (auto) 1.25 Total Counted Not Reportable Sodium 145 Potassium 3.3 L Chloride 113 H Carbon Dioxide 23.0 Anion Gap 9 BUN 6 L Creatinine 0.46 L Estim Creat Clear Calc 55.82 Est GFR (MDRD) Af Amer 174 Est GFR (MDRD) Non-Af 144 BUN/Creatinine Ratio 13.0 Glucose 92 Calcium 7.5 L Total Bilirubin 1.20 H AST 20 ALT 24 Alkaline Phosphatase 48 Total Protein 5.1 L Albumin 2.5 L Globulin 2.6 Albumin/Globulin Ratio 1.0 Assessment/Plan GI bleed-hemorrhagic shock. - edema at the pylorus Peptic ulcer-Upper endoscopy was performed in the emergency department. The patient was noted to have an edematous pylorus versus first portion of duodenum which the scope could not easily be advanced through there did not seem to be active bleeding visualized beyond that site and there appeared to be either a pyloric channel or first portion of the duodenal ulcer with white base. Repeat upper endoscopy yesterday demonstrated a still edematous area in the 1st portion of the duodenum but not bleeding. The area looked concerning for a mass versus healing ulcer. Biopsies of the stomach and duodenum were unremarkable. H Pylori negative. CT scan suggested a dilated CBD and a distal CBD stone. No pancreatic mass was seen. MRCP demonstrated no stone and no masses. The patient is anicteric. Her bilirubin is 1.2 The patient will follow up in my office. We will consider repeat ultrasound in 3 weeks versus endoscopic ultrasound
== END 2017-07-18 14:50 | disposition home or self-care (01) | DRG 811 ==
LOC: ED 09:16 → ICU 09:23 → MS2 07-16 14:14
PROVIDERS: Anesthesiology; Physician Assistant; Surgery; Admitting Provider Internal Medicine; Emergency Provider Emergency Medicine; Family Provider Family Medicine; PCP Family Medicine
PROC: 0DJ08ZZ Inspection of Upper Intestinal Tract, Via Natural or Artificial Opening Endoscopic (ICD-10-PCS; CPT 43235; principal; 2017-07-15 08:00)
DX: D62 Acute posthemorrhagic anemia (principal); R57.8 Other shock; K92.2 Gastrointestinal hemorrhage, unspecified; K26.9 Duodenal ulcer, unspecified as acute or chronic, without hemorrhage or perforation; E66.9 Obesity, unspecified; K21.9 Gastro-esophageal reflux disease without esophagitis; Z72.0 Tobacco use; K31.9 Disease of stomach and duodenum, unspecified; K80.20 Calculus of gallbladder without cholecystitis without obstruction; Z68.30 Body mass index [BMI] 30.0-30.9, adult
CPT/HCPCS: 36415; 74177; 74181; 80048; 80053; 85014; 85018; 85025; 85610; 85730; 86850; 86900; 86920; 88305; 88342; 93005; 99285; J7030; J7040; J7120; P9016; Q9967; A4216; J3490

== ENCOUNTER → 2017-08-07 08:12 | Outpatient (CLI) | payer MEDICARE, OTHER, SELFPAY ==
--- NOTE | 2017-08-07 08:25 | RAD_ITS ---
STUDY: AIR-CONTRAST UPPER GI SERIES. REASON FOR EXAM: Female, 67 years old. History of GI bleed. FLUOROSCOPY TIME (if supplied): (0:49) minutes/seconds TECHNIQUE: The patient ingested barium. Multiple images of the esophagus, stomach and duodenum were obtained. COMPARISON: None. FINDINGS: There is evidence of a small sliding hiatal hernia with gastroesophageal reflux. There is no evidence of esophageal obstruction. The stomach is unremarkable. There is no evidence of ulceration. No mass lesion is seen. There is evidence of mucosal fold thickening of the first portion of the duodenum. There is evidence of slight narrowing of the post bulbar region suggestive of possible ulceration. Correlation with endoscopy is recommended. RAD/Upper GI Series Only IMPRESSION: Small sliding hiatal hernia with gastroesophageal reflux. Findings suggestive of possible duodenal ulceration as described. Correlation with endoscopy is recommended. Electronically Signed: Toy Panchal MD at 10:38 EST Tel [phone], Service support ,
== END ==
PROVIDERS: Family Provider Family Medicine; PCP Family Medicine; Visit Provider Surgery
DX: K92.2 Gastrointestinal hemorrhage, unspecified (principal)
CPT/HCPCS: 74246

== ENCOUNTER 2017-09-28 22:13 | Emergency (ER) | payer MEDICARE, OTHER, SELFPAY ==
[2017-09-28 22:14] VITALS: BP 115/65; PULSE 78; RESP 18; TEMP 36.7; O2SAT 95; BMI 32.1
--- NOTE | 2017-09-28 22:30 | EKG12_ITS ---
Test Reason : STOMACH PAIN Blood Pressure : / mmHG Vent. Rate : 080 BPM Atrial Rate : 080 BPM P-R Int : 146 ms QRS Dur : 086 ms QT Int : 404 ms P-R-T Axes : 023 033 020 degrees QTc Int : 465 ms Normal sinus rhythm Normal ECG Confirmed by FRANC KOCH ([id number]), publications editor ALEX GARCIA ([id number]) on 10/02/2017 3:56:57 PM Referred By: DINO Confirmed By:FRANC KOCH
--- NOTE | 2017-09-28 22:33 | CT_ITS ---
STUDY: CT ABDOMEN AND PELVIS WITHOUT CONTRAST REASON FOR EXAM: Female, 67 years old. ABD PAIN S/P SCOPE TODAY, EMESIS AFTER ANESTHESIA, HX ULCER RADIATION DOSAGE (If Supplied By Facility): CTDIvol = ( 21.42 ) mGy, DLP = ( 1139.76 ) mGycm TECHNIQUE: Transaxial images were obtained from the dome of the diaphragm to the symphysis pubis without oral contrast, and without intravenous contrast. Sagittal and coronal images were reconstructed. Individualized dose optimization techniques were used for this CT. COMPARISON: None. FINDINGS: The visualized lung bases are unremarkable. The visualized portions of the heart are within normal limits. Normal liver. Normal gallbladder and extrahepatic biliary system. Normal spleen. Normal pancreas. Normal bilateral adrenal glands. Normal right kidney. Normal left kidney. There is free air adjacent to the second part of the duodenum consistent with perforated duodenal ulcer. Normal visualized stomach. Normal small intestine. There are multiple colonic diverticula consistent with diverticulosis. The appendix is visualized and appears normal. Normal abdominal aorta. Normal inferior vena cava. Normal retroperitoneum. Normal urinary bladder. Normal abdominal wall. Normal osseous structures. CT/Abdomen/Pelvis without Cont IMPRESSION: There is free air adjacent to the second part of the duodenum consistent with perforated duodenal ulcer. Electronically Signed: Johanne Vernon MD at 0:37 EDT Tel , Service support ,
--- NOTE | 2017-09-28 22:33 | ED.DCSUM_ITS ---
- ER Visit Summary Date of Service: 09/28/17 Chief Complaint: [abdominal pain] History of Present Illness: The patient is a 67 F [who presents the emergency department with bilateral upper abdominal pain. It started about 530 this afternoon. She had an upper endoscopy which showed a deep duodenal ulcer. She went to eat after her procedure and got severe pain and vomited once. She continues to have pain and she is not able to tolerate it. She is on medicines for her stomach but denies any other health problems.] Physical Examination: [] WN WD NAD PERRL EOMI MMM NECK supple and nontender, no masses RRR no murmur rub or gallop, no peripheral edema, symmetric radial pulses CTAB no respiratory distress ABDOMEN is soft she has diffuse tenderness worse in the epigastric region and bilateral upper quadrants, normal bowel sounds, no distension, no rebound or guarding SKIN is warm and dry no rashes Alert and Oriented x3, CN II-XII in tact, no motor or sensory deficits, gait normal No lymphadenopathy Test Results: [] Emergency Department Course and Treatment: [Patient was given fluids and pain medicine as well as Protonix. She did improve. She had a white count of 17.4. CT of the abdomen and pelvis showed perforation of a duodenal ulcer. She was given Cipro and Flagyl. I spoke with Dr. Davis who is the patient's surgeon. He preferred that she be transferred given that she has complicated anatomy in the pylorus and duodenum. I spoke with [facility] who agreed to accept the patient. She remained stable during her stay in the emergency department.] Treatment Plan: [] Disposition: [Transfer] Impression: [Perforated duodenal ulcer] This note was generated with [employer] dictation software. It may contain incorrect words, spelling, and punctuation that were not noted in review of the chart prior to signing ED Disposition - Plan for ED Patient: Disposition: [facility] Chief Complaint: Abd Pain Referrals: Mary Smith DO [Primary Care Provider] -
[2017-09-28 22:57] VITALS: BP 108/51; PULSE 86; RESP 18; O2SAT 96
[2017-09-28 23:01] LABS: Absolute Neutrophil Count 15.7 X10^3/uL (2.0-7.7); Basophil# 0.01 X10^3/uL; Basophil% 0.1 % (0-1); Eosinophil# 0.01 X10^3/uL; Eosinophils% 0.1 % (0-5); Hematocrit 40.1 % (37-47); Hemoglobin 12.6 g/dl (12.0-15.0); Lymphocyte % 5.2 % (19-41); Mean Corp Hgb Conc 31.4 g/gl (32-36); Mean Corpuscular Hgb 27.2 pg (27.0-32.0); Mean Corpuscular Volume 86.4 fL (81-99); Mean Platelet Vol. 9.8 fl (6.2-12.0); Monocyte# 0.75 X10^3/uL; Monocyte% 4.3 % (0-10); Neutrophil # 15.71 X10^3/uL (2.7-7.7); Neutrophil % 90.1 % (47-70); Platelet Count 207 K/mm3 (150-450); RBC Distribution Width CV 14.7 % (11.6-14.6); RBC Distribution Width SD 46.4 fl (35.1-43.9); Red Blood Count 4.64 M/mm3 (4.2-5.4); White Blood Count 17.4 K/mm3 (4.4-11.0)
[2017-09-28] MEDS: 0.9% Normal Saline 1,000 ML 1000 ML IV (23:03)
[2017-09-28 23:04] LABS: POSITIVE COUNT NO; POSITIVE DIFFERENTIAL NO; POSITIVE MORPHOLOGY NO
[2017-09-28] MEDS: Morphine 4 MG/ML Syringe IV (23:08)
[2017-09-28] MEDS: Ondansetron 4 MG/2 ML Vial IV (23:09)
[2017-09-28 23:20] LABS: AST(SGOT) 33 U/L (15-37); Alanine Aminotransfer ALT/SGPT 29 U/L (13-56); Albumin, Serum 3.5 g/dL (3.2-5.0); Alkaline Phosphatase 84 U/L (45-117); Anion Gap 9 (5-15); BUN 11 mg/dL (7-18); BUN/Creat Ratio 14.5 RATIO (10-20); Calcium,Total 8.6 mg/dL (8.5-10.1); Chloride 108 mmol/L (98-107); Creatinine, Serum 0.76 mg/dL (0.55-1.02); EST Glomerular Filtration Rate 81 mL/min (>60); Est Glom Filt Rate - Afr Amer 98 mL/min (>60); Estimated Creatinine Clearance 57.83 ml/min; Globulin 3.5 g/dL (2.2-4.2); Glucose 140 mg/dL (74-106); Lipase 257 U/L (73-393); Potassium 4.1 mmol/L (3.5-5.1); Sodium Level 143 mmol/L (136-145)
[2017-09-29 00:13] VITALS: BP 103/49; PULSE 80; RESP 16; O2SAT 96
[2017-09-29 01:08] VITALS: BP 101/55; PULSE 81; RESP 18; O2SAT 93
[2017-09-29] MEDS: Ciprofloxacin 400 MG/200 ML BAG 200 MG IV (01:08)
[2017-09-29 02:07] VITALS: BP 101/48; PULSE 16; O2SAT 93
== END 2017-09-29 03:11 | disposition short-term general hospital (02) ==
PROVIDERS: Emergency Provider Emergency Medicine; Family Provider Family Medicine; PCP Family Medicine
DX: K26.5 Chronic or unspecified duodenal ulcer with perforation (principal); K21.9 Gastro-esophageal reflux disease without esophagitis
CPT/HCPCS: 74176; 80053; 83690; 85025; 93005; 96365; 96367; 96375; 99284; J7030; J7050; A4216; J0744; J2405; J3490

== ENCOUNTER → 2017-12-06 11:07 | Outpatient (CLI) | payer MEDICARE, OTHER, MEDICAID, SELFPAY ==
[2017-12-06 12:50] LABS: Absolute Lymphocyte Count 1.75 X10^3/ul (0.83-4.51); Absolute Neutrophil Count 4.6 X10^3/uL (2.0-7.7); Basophil# 0.01 X10^3/uL; Basophil% 0.1 % (0-1); Eosinophil# 0.09 X10^3/uL; Eosinophils% 1.3 % (0-5); Hematocrit 36.4 % (37-47); Hemoglobin 11.3 g/dl (12.0-15.0); Lymphocyte # 1.75 X10^3/ul (4.0); Mean Corpuscular Hgb 26.3 pg (27.0-32.0); Mean Corpuscular Volume 84.8 fL (81-99); Mean Platelet Vol. 10.7 fl (6.2-12.0); Monocyte# 0.49 X10^3/uL; Neutrophil # 4.64 X10^3/uL (2.7-7.7); Neutrophil % 66.5 % (47-70); Platelet Count 225 K/mm3 (150-450); RBC Distribution Width CV 16.9 % (11.6-14.6); RBC Distribution Width SD 52.1 fl (35.1-43.9); Red Blood Count 4.29 M/mm3 (4.2-5.4)
[2017-12-06 12:51] LABS: POSITIVE COUNT NO; POSITIVE DIFFERENTIAL NO; POSITIVE MORPHOLOGY NO
[2017-12-06 13:08] LABS: Anion Gap 7 (5-15); BUN 11 mg/dL (7-18); BUN/Creat Ratio 15.5 RATIO (10-20); Calcium,Total 8.5 mg/dL (8.5-10.1); Chloride 107 mmol/L (98-107); Creatinine, Serum 0.71 mg/dL (0.55-1.02); EST Glomerular Filtration Rate 88 mL/min (>60); Est Glom Filt Rate - Afr Amer 106 mL/min (>60); Glucose 85 mg/dL (74-106); Potassium 3.8 mmol/L (3.5-5.1); Sodium Level 140 mmol/L (136-145)
[2017-12-07 09:52] LABS: Pathologist Review Reviewed
== END ==
PROVIDERS: Family Provider Family Medicine; PCP Family Medicine; Visit Provider Family Medicine
DX: E87.6 Hypokalemia (principal); K26.4 Chronic or unspecified duodenal ulcer with hemorrhage
CPT/HCPCS: 36415; 80048; 85025

== ENCOUNTER → 2017-12-11 09:32 | Outpatient (CLI) | payer MEDICARE, OTHER, MEDICAID, SELFPAY ==
--- NOTE | 2017-12-11 09:45 | RAD_ITS ---
STUDY: AIR-CONTRAST UPPER GI SERIES. REASON FOR EXAM: Female, 67 years old. History of duodenal ulcer repair. FLUOROSCOPY TIME (if supplied): (0:30) minutes/seconds TECHNIQUE: The patient ingested barium. Multiple images of the esophagus, stomach and duodenum were obtained. COMPARISON: Comparison is made with prior study of August 07, 2017. FINDINGS: There is evidence of a small sliding hiatal hernia with gastroesophageal reflux. The stomach is otherwise unremarkable. There is no active ulceration. No mass lesion is seen. The duodenum is unremarkable at this time. There is no evidence of ulceration. No evidence of obstruction. RAD/Upper GI Series Only IMPRESSION: Small sliding hiatal hernia with gastroesophageal reflux. Electronically Signed: Toy Panchal MD at 13:28 EDT Tel [phone], Service support ,
== END ==
PROVIDERS: Family Provider Family Medicine; PCP Family Medicine; Visit Provider Surgery
DX: K26.4 Chronic or unspecified duodenal ulcer with hemorrhage (principal)
CPT/HCPCS: 74246

== ENCOUNTER → 2018-04-05 09:36 | Outpatient (CLI) | payer MEDICARE, OTHER, SELFPAY ==
--- NOTE | 2018-04-05 09:38 | BI_ITS ---
MAMMOGRAPHY - BILATERAL SCREENING REASON FOR EXAM: Female, 67 years old. Routine annual screening examination. PERTINENT HISTORY: Mother with breast cancer. TECHNIQUE: Digital bilateral breast estella (3D mammographic acquisition) in the CC and MLO projections. 2-D mediolateral oblique (MLO) and craniocaudad (CC) views of both breasts were obtained. CAD: Full Field Digital Mammography with Computer Added Detection was performed. COMPARISON: Comparison is made with prior study dated April 17, 2014. FINDINGS: Breast Composition: The breasts are heterogeneously dense, which may obscure small masses. There are no dominant masses or suspicious calcifications. No other significant abnormalities are identified. There has been no significant change since the prior study. BI/SCREENING MAMM (CAD), BILAT IMPRESSION: Stable bilateral screening mammogram. Yearly follow-up mammogram recommended. (A) ASSESSMENT CATEGORY: BIRADS Category 1: Negative. A letter regarding these results will be sent to the patient by the facility within 30 days. Approximately 10% of breast cancers are not detected by mammography. A normal mammogram should not delay biopsy of a clinically suspicious abnormality. [id number] Electronically Signed: Toy Panchal MD at 13:28 EDT Tel [phone], Service support ,
== END ==
PROVIDERS: Family Provider Family Medicine; PCP Family Medicine; Referring Provider Family Medicine; Visit Provider Family Medicine
DX: Z12.31 Encounter for screening mammogram for malignant neoplasm of breast (principal)
CPT/HCPCS: 77063; 77067

== ENCOUNTER → 2018-04-15 08:26 | Outpatient (CLI) | payer MEDICARE, OTHER, SELFPAY ==
[2018-04-15 10:33] LABS: Absolute Lymphocyte Count 1.48 X10^3/ul (0.83-4.51); Absolute Neutrophil Count 4.3 X10^3/uL (2.0-7.7); Basophil# 0.01 X10^3/uL; Basophil% 0.2 % (0-1); Eosinophil# 0.08 X10^3/uL; Eosinophils% 1.3 % (0-5); Hematocrit 40.3 % (37-47); Hemoglobin 12.5 g/dl (12.0-15.0); Lymphocyte # 1.48 X10^3/ul (4.0); Lymphocyte % 23.3 % (19-41); Mean Corpuscular Hgb 27.1 pg (27.0-32.0); Mean Corpuscular Volume 87.2 fL (81-99); Mean Platelet Vol. 9.8 fl (6.2-12.0); Monocyte% 7.9 % (0-10); Neutrophil # 4.27 X10^3/uL (2.7-7.7); Neutrophil % 67.1 % (47-70); Platelet Count 214 K/mm3 (150-450); RBC Distribution Width CV 15.9 % (11.6-14.6); RBC Distribution Width SD 51.3 fl (35.1-43.9); Red Blood Count 4.62 M/mm3 (4.2-5.4); White Blood Count 6.4 K/mm3 (4.4-11.0)
[2018-04-15 10:41] LABS: POSITIVE COUNT NO; POSITIVE DIFFERENTIAL NO; POSITIVE MORPHOLOGY NO
[2018-04-15 10:45] LABS: ALB/GLOB Ratio 0.9 RATIO (0.9-2.4); AST(SGOT) 23 U/L (15-37); Alanine Aminotransfer ALT/SGPT 25 U/L (13-56); Albumin, Serum 3.4 g/dL (3.2-5.0); Alkaline Phosphatase 92 U/L (45-117); Anion Gap 10 (5-15); BUN 11 mg/dL (7-18); BUN/Creat Ratio 14.1 RATIO (10-20); Calcium,Total 8.5 mg/dL (8.5-10.1); Chloride 103 mmol/L (98-107); Cholesterol 184 mg/dL (200); Creatinine, Serum 0.78 mg/dL (0.55-1.02); EST Glomerular Filtration Rate 79 mL/min (>60); Est Glom Filt Rate - Afr Amer 95 mL/min (>60); Globulin 3.6 g/dL (2.2-4.2); Glucose 91 mg/dL (74-106); High Density Lipoprotein 62 mg/dL; Potassium 3.9 mmol/L (3.5-5.1); Sodium Level 142 mmol/L (136-145); Triglycerides 102 mg/dL; Very Low Density Lipoprotein 20 mg/dL (5-40)
[2018-04-15 10:47] LABS: Vitamin D,25 Hydroxy 33.8 ng/mL (29.95-100.01)
== END ==
PROVIDERS: Family Provider Family Medicine; PCP Family Medicine; Referring Provider Family Medicine; Visit Provider Family Medicine
DX: E55.9 Vitamin D deficiency, unspecified (principal); E78.5 Hyperlipidemia, unspecified; Z51.81 Encounter for therapeutic drug level monitoring; D64.9 Anemia, unspecified
CPT/HCPCS: 36415; 80053; 80061; 82306; 85025

== ENCOUNTER → 2018-05-31 10:41 | Outpatient (CLI) | payer MEDICARE, OTHER, SELFPAY ==
--- NOTE | 2018-05-31 11:10 | RAD_ITS ---
CLINICAL HISTORY: Female, 68 years old. PROCEDURE: Double contrast upper GI CONSENT: SEDATION: FLUOROSCOPY TIME (if supplied): (2:12) minutes/seconds TECHNIQUE: After explanation of the procedure to the patient, she was given the gas producing granules. The patient swallowed barium without difficulty no evidence of obstruction, no gastroesophageal reflux seen. The stomach was filled to the normal contour without mucosal abnormality. The duodenal bulb is mildly deformed and there is post bulbar stenosis that is persistent, the second and third portion of the duodenum as well as the proximal are unremarkable. RAD/Upper GI Series Only IMPRESSION: Evidence deformity of duodenal bulb with stenosis of post bulbar area which is persistent. The barium passed beyond the stenosis relatively slowly. Electronically Signed: lEsie Tam, at 16:09 EST Tel , Service support ,
== END ==
PROVIDERS: Family Provider Family Medicine; PCP Family Medicine; Referring Provider Surgery; Visit Provider Surgery
DX: R11.2 Nausea with vomiting, unspecified (principal); Z87.19 Personal history of other diseases of the digestive system
CPT/HCPCS: 74246

== ENCOUNTER → 2019-03-10 14:46 | Outpatient (CLI) | payer MEDICARE, OTHER, SELFPAY ==
[2019-03-10 18:12] LABS: Absolute Lymphocyte Count 1.78 X10^3/uL (0.83-4.51); Absolute Neutrophil Count 5.5 X10^3/uL (2.0-7.7); Basophil# 0.03 X10^3/uL; Basophil% 0.4 % (0-1); Eosinophil# 0.15 X10^3/uL; Eosinophils% 1.9 % (0-5); Hematocrit 42.4 % (37-47); Hemoglobin 12.9 g/dL (12.0-15.0); Lymphocyte # 1.78 X10^3/ul (4.0); Lymphocyte % 22.1 % (19-41); Mean Corp Hgb Conc 30.4 g/dL (32-36); Mean Corpuscular Hgb 26.5 pg (27.0-32.0); Mean Corpuscular Volume 87.2 fL (81-99); Mean Platelet Vol. 10.3 fl (6.2-12.0); Monocyte# 0.55 X10^3/uL; Monocyte% 6.8 % (0-10); NRBC Flagged by Analyzer 0 % (0-5); Neutrophil # 5.52 X10^3/uL (2.7-7.7); Neutrophil % 68.4 % (47-70); Platelet Count 244 K/mm3 (150-450); RBC Distribution Width CV 14.9 % (11.6-14.6); RBC Distribution Width SD 47.8 fl (35.1-43.9); Red Blood Count 4.86 M/mm3 (4.2-5.4); White Blood Count 8.1 K/mm3 (4.4-11.0)
[2019-03-10 18:30] LABS: Vitamin B12 1125 pg/mL (211-911)
[2019-03-10 18:43] LABS: ALB/GLOB Ratio 1.1 RATIO (0.9-2.4); AST(SGOT) 27 U/L (15-37); Alanine Aminotransfer ALT/SGPT 31 U/L (13-56); Albumin, Serum 3.7 g/dL (3.2-5.0); Alkaline Phosphatase 86 U/L (45-117); Anion Gap 8 (5-15); BUN 12 mg/dL (7-18); BUN/Creat Ratio 14.3 RATIO (10-20); Calcium,Total 8.7 mg/dL (8.5-10.1); Chloride 106 mmol/L (98-107); Creatinine, Serum 0.84 mg/dL (0.55-1.02); EST Glomerular Filtration Rate 72 mL/min (>60); Est Glom Filt Rate - Afr Amer 87 mL/min (>60); Globulin 3.4 g/dL (2.2-4.2); Glucose 88 mg/dL (74-106); Potassium 4.1 mmol/L (3.5-5.1); Protein, Total 7.1 g/dL (6.4-8.2); Sodium Level 143 mmol/L (136-145)
== END ==
PROVIDERS: Family Provider Family Medicine; PCP Family Medicine; Visit Provider Family Medicine
DX: R25.2 Cramp and spasm (principal); R25.3 Fasciculation; E53.8 Deficiency of other specified B group vitamins; D64.9 Anemia, unspecified
CPT/HCPCS: 36415; 80053; 82607; 82746; 83735; 85025

== ENCOUNTER 2019-12-06 10:32 | Emergency (ER) | payer MEDICARE, OTHER, SELFPAY ==
[2019-12-06 10:34] VITALS: BP 144/80; PULSE 88; RESP 18; TEMP 36.3; O2SAT 99; BMI 31.3
--- NOTE | 2019-12-06 10:49 | RAD_ITS ---
STUDY: X-RAY - ACUTE ABDOMINAL SERIES REASON FOR EXAM: Female, 69 years old. RIGHT SIDE ABDOMEN PAIN TECHNIQUE: Single view of the chest. Supine, and erect view(s) of the abdomen were obtained. COMPARISON: September 28, 2017 CT abdomen and pelvis FINDINGS: The lungs are clear and expanded. Normal size heart. Normal mediastinum and babar. Normal visualized pulmonary arteries. Normal visualized aortic arch and descending thoracic aorta. There is mild to moderate stool in the colon. There are bilateral tubal ligation clips. Normal visualized osseous structures. RAD/Acute Abdomen Inc Chest IMPRESSION: No visualized acute focal infiltrate. Mild constipation. There are bilateral tubal ligation clips demonstrated. Electronically Signed: Rachael Herrera MD at 11:39 EDT Tel , Service support ,
--- NOTE | 2019-12-06 10:50 | ED.VIS.GEN ---
History of Present Illness Chief Complaint: Other, Pain/Inj Detail of Chief Complaint: Right facial pain, abdominal pain Informant: Patient Current Severity: Mild Maximum Severity: Moderate Narrative: Patient presents secondary to right jaw swelling today. She states she woke up with it this morning. She denies ear pain. She does have dentures and reports no gum pain or swelling. Patient states that she continues to have some abdominal pain. She pulled a muscle a few weeks ago and thought while she was here she wanted have this rechecked. She denies nausea or vomiting. She denies fever or chills. Pain does not change when she eats. She has had multiple abdominal surgeries including feeding tubes so wanted to have it checked. - Past Medical History (1) GI bleed Status: Chronic (2) GERD (gastroesophageal reflux disease) Status: Chronic (3) SDH (subdural hematoma) Status: Chronic Past Medical History - Allergies and Home Meds Allergies/Adverse Reactions: Allergies Penicillins Allergy (Verified 12/06/19 10:33) Unknown prednisone Allergy (Verified 12/06/19 10:33) Unknown ibuprofen [From Advil] Adverse Reaction (Verified 12/06/19 10:33) Other Primary Care Physician: Mary Smith DO [Primary Care Provider] - Prior records reviewed: Yes Surgical History: - - Surgery for subdural hematoma Smoking Status: Never smoker - Family History Maternal Family History: Reports: Cancer Paternal Family History: Reports: No pertinent history Review of Systems General: Denies: Chills, Fever Eyes: Denies: Visual changes - bilaterally ENT: Reports: - - Right facial pain. Denies: Bilateral ear pain Cardiovascular: Denies: Chest pain Respiratory: Denies: Dyspnea, Cough Gastrointestinal: Reports: Abdominal pain. Denies: Nausea, Vomiting, Diarrhea Genitourinary: Denies: Dysuria Musculoskeletal: Denies: Extremity Pain Skin: Denies: Rash Neurological: Denies: Headache Hematologic: Denies: Easy bruising, Easy bleeding Allergy: Denies: Uticaria Physical Exam Vital Signs/Narrative: Vital Signs Temp Pulse Resp BP Pulse Ox 12/06/19 10:34 97.3 F L 88 18 144/80 H 99 Inital Vital Signs reviewed: Yes General: Well nourished, Well developed Head: Normocephalic Eyes: Perrl, EOMI ENT: Moist mucous membranes. Negative for: TM's clear - Right TM obscured by wax. Neck: Supple Cardiovascular: Regular rate, Regular rhythm Respiratory: No distress, CTA bilaterally Abdomen: Soft, Tender - Minimal right upper quadrant tenderness.. Negative for: Guarding, Rebound tenderness Back: Nontender Extremities: Nontender Skin: Normal color Neurological: Alert, Oriented x3 Psychological: Normal affect Diagnostic/Tx/Re-eval Impressions Acute Abdomen Series 12/06/19 10:49 IMPRESSION: No visualized acute focal infiltrate. Mild constipation. There are bilateral tubal ligation clips demonstrated. Electronically Signed: Rachael Herrera MD at 11:39 EDT Tel , Service support , 12/06/19 10:49 XRAY Abdomen [Acute Abdomen Inc Chest] [RAD] Stat - Medical Decision Making Debrox was placed in her right ear. Multiple attempts at irrigation were made. She continues to have deep wax that is pretty concentrated. Patient be sent home with Debrox drops and is instructed to use the warm water in the shower to help irrigate her ear. She will be referred to ENT if not improving. ED Disposition - Plan for ED Patient: Disposition: Home or Assisted Living Diagnosis: Cerumen impaction, Abdominal wall strain Instructions: CERUMEN IMPACTION, Home Care, ED Strain Abdominal Muscle Referrals: Mary Smith DO [Primary Care Provider] - Pedro Miller MD [STAFF PHYSICIAN] - 1 Week if not improving
[2019-12-06] MEDS: Carbamide Peroxide 15 ML Bottle 5 DRP OTIC (10:54)
[2019-12-06 12:01] VITALS: PULSE 80; RESP 16; O2SAT 98
== END 2019-12-06 12:02 | disposition home or self-care (01) ==
PROVIDERS: Emergency Provider Emergency Medicine; PCP Family Medicine
DX: S39.011A Strain of muscle, fascia and tendon of abdomen, initial encounter (principal); X58.XXXA Exposure to other specified factors, initial encounter; Y93.9 Activity, unspecified; Y92.9 Unspecified place or not applicable; Y99.9 Unspecified external cause status; K59.00 Constipation, unspecified; H61.21 Impacted cerumen, right ear; K21.9 Gastro-esophageal reflux disease without esophagitis
CPT/HCPCS: 74022; 99283

== ENCOUNTER → 2019-12-16 14:56 | Outpatient (CLI) | payer MEDICARE, OTHER, SELFPAY ==
[2019-12-06 10:34] VITALS: BMI 31.3
--- NOTE | 2019-12-16 16:00 | MRI_ITS ---
STUDY: MRI CERVICAL SPINE WITHOUT CONTRAST REASON FOR EXAM: Female, 69 years old. Cervical myelopathy, muscle spasms, numbness in legs and feet x 5 years TECHNIQUE: Standardized fat and water weighted pulse sequences were obtained in the sagittal and axial planes. COMPARISON: None FINDINGS: Normal foramen magnum and brainstem-cervical cord junction. Normal craniovertebral junction. Normal anterior atlantoaxial articulation. Normal odontoid process. Normal cervical lordosis. Normal vertebral bodies and posterior osseous elements. C2-3: Normal endplates. Normal disc height, signal and morphology. Normal central canal and intervertebral neural foramina. C3-4: Normal endplates. Normal disc height, signal and morphology. Normal central canal and intervertebral neural foramina. C4-5: Normal endplates. Normal disc height, signal and morphology. Normal central canal and intervertebral neural foramina. C5-6: Mild Modic type II degenerative vertebral marrow fatty changes underneath the vertebral endplates. Mild disc space height narrowing. Small posterior bulging disc. Normal central canal and left intervertebral neural foramen. Moderately pronounced stenosis of the right intervertebral neural foramen. C6-7: Normal endplates. Normal disc height, signal and morphology. Normal central canal and intervertebral neural foramina. C7-T1: Normal endplates. Normal disc height, signal and morphology. Normal central canal and intervertebral neural foramina. T1-T2, T2-T3, T3-T4 and T4-T5: (Sagittal only). Normal endplates. Normal disc height and morphology. Normal central canal and intervertebral neural foramina. Normal cervical cord. Normal visualized soft tissue structures. MRI/Spine Cervical (Routine) IMPRESSION: 1. 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 2. No MRI evidence of cervical extruded disc fragment. 3. Normal cervical spinal cord. Electronically Signed: Wesley Saldana MD at 8:46 EDT , Service support ,
--- NOTE | 2019-12-16 16:45 | MRI_ITS ---
STUDY: MRI LUMBAR SPINE WITHOUT CONTRAST REASON FOR EXAM: Female, 69 years old. Stenosis,. Muscle spasms, numbness in legs and feet x 5 years TECHNIQUE: Standardized fat and water weighted pulse sequences were obtained in the sagittal and axial planes. COMPARISON: CT abdomen and pelvis without contrast 09/28/2017. FINDINGS: T10-T11: (Sagittal only). Normal T10 inferior endplate. Slight anterior wedging of T11 superior endplate is unchanged. Minimal disc space height narrowing. No ventral extradural defect. Normal central canal and bilateral intervertebral neural foramina. Small right perineural cyst in the intervertebral neural foramen is a developmental variation of normal. T11-T12: (Sagittal only). Normal endplates. Minimal disc space height narrowing. No ventral extradural defect. Normal central canal and bilateral intervertebral neural foramina. Prominent right perineural cyst in the right intervertebral neural foramen is a developmental variation of normal. T12-L1: (Sagittal only). Normal endplates. Normal disc height, hydration and morphology. No ventral extradural defect. Normal central canal and bilateral intervertebral neural foramina. L1 benign vertebral body hemangioma occupies a large portion of the L1 vertebral body is unchanged. Normal lumbar lordosis. There is no substantial scoliosis. Normal conus medullaris that terminates at the lower L1 vertebral body level. L1-2: Normal endplates. Normal disc height, hydration and morphology. Normal central canal and bilateral lateral recesses. Mild asymmetric degenerative facet arthropathy. Normal bilateral intervertebral neural foramina. L2-3: Normal endplates. Minimal disc space height narrowing but no ventral extradural defect. Normal central canal and bilateral lateral recesses. Mild bilateral degenerative facet arthropathy. Normal bilateral intervertebral neural foramina. Benign lipomatous L3 vertebral body hemangioma is unchanged. L3-4: Normal endplates. Normal disc height, hydration and morphology. No ventral extradural defect. Mild central canal stenosis with an AP canal diameter of 10 mm. Normal bilateral lateral recesses. Mild bilateral degenerative facet arthropathy. Normal bilateral intervertebral neural foramina. L4-5: Normal endplates. Mild disc space height narrowing. Minimal degenerative anterolisthesis of L4 on L5 is unchanged. Mild central canal stenosis with an AP canal diameter of 10 mm. Mild the dorsal epidural lipomatosis. Normal bilateral lateral recesses. Moderate asymmetric degenerative facet arthropathy. Normal bilateral intervertebral neural foramina. L5-S1: Normal endplates. Normal disc height, hydration and morphology. Normal central canal and bilateral lateral recesses. Moderately pronounced left degenerative facet arthropathy. Mild to moderate right degenerative facet arthropathy. Normal bilateral intervertebral neural foramina. Normal visualized sacral ala. Normal visualized paraspinous soft tissue structures. MRI/Spine Lumbar (Routine) IMPRESSION: 1. No MRI evidence of lumbar extruded disc fragment or nerve root displacement. 2. Minimal degenerative anterolisthesis of L4 on L5, mild central canal stenosis with an AP canal diameter of 10 mm and moderate asymmetric degenerative facet arthropathy. This level is unchanged. 3. Moderately pronounced left L5-S1 degenerative facet arthropathy and mild to moderate right L5-S1 degenerative facet arthropathy. These are unchanged. 4. Mild central canal stenosis at L3-L4 disc level with an AP canal diameter of 10 mm and mild bilateral degenerative facet arthropathy. This level is unchanged. 5. Benign of vertebral body hemangiomas at L1 and L3 vertebral bodies are unchanged. 6. Minimal anterior wedging of T11 superior endplate is unchanged. 7. Prominent perineural cyst in the right T11-T12 intervertebral neural foramen is a developmental variation of normal. 8. Small perineural cyst in the right T10-T11 intervertebral neural foramen. Electronically Signed: Wesley Saldana MD at 9:01 EDT , Service support ,
== END ==
PROVIDERS: PCP Family Medicine; Referring Provider Neurological Surgery; Visit Provider Neurological Surgery
DX: M48.062 Spinal stenosis, lumbar region with neurogenic claudication (principal); G95.9 Disease of spinal cord, unspecified
CPT/HCPCS: 72141; 72148

== ENCOUNTER → 2020-07-01 15:16 | Outpatient (CLI) | payer MEDICARE, OTHER, SELFPAY ==
[2020-07-01 18:06] LABS: Erythrocyte Sedimentation Rate 3 mm/hr (0-30)
[2020-07-01 18:24] LABS: Hemoglobin A1c 5.3 % (3.8-5.6)
[2020-07-01 19:05] LABS: AST(SGOT) 27 U/L (15-37); Alanine Aminotransfer ALT/SGPT 34 U/L (13-56); Albumin, Serum 3.4 g/dL (3.2-5.0); Alkaline Phosphatase 73 U/L (45-117); Anion Gap 8 (5-15); BUN 12 mg/dL (7-18); BUN/Creat Ratio 12.1 RATIO (10-20); CRP < 2.90 mg/L (0.0-3.0); Calcium,Total 8.5 mg/dL (8.5-10.1); Chloride 108 mmol/L (98-107); Creatinine, Serum 0.99 mg/dL (0.55-1.02); EST Glomerular Filtration Rate 59 mL/min (>60); Est Glom Filt Rate - Afr Amer 72 mL/min (>60); Free T3 2.6 pg/mL (2.18-3.98); Globulin 3.4 g/dL (2.2-4.2); Glucose 84 mg/dL (74-106); Protein, Total 6.8 g/dL (6.4-8.2); Sodium Level 139 mmol/L (136-145); T4 Free Direct 0.96 ng/dL (0.76-1.46); Thyroid Stim Hormone (TSH) 1.98 uIU/mL (0.358-3.74)
[2020-07-02 08:06] LABS: PTHIN 57.6 pg/mL (18.4-80.1)
[2020-07-05 02:02] LABS: ANTINUCLEAR ANTIBODIES DIRECT Negative (Negative)
== END ==
PROVIDERS: PCP Family Medicine; Visit Provider Family Medicine
DX: R25.2 Cramp and spasm (principal); R25.3 Fasciculation; M79.601 Pain in right arm; R20.0 Anesthesia of skin; M25.50 Pain in unspecified joint; R73.09 Other abnormal glucose; M27.8 Other specified diseases of jaws; R25.0 Abnormal head movements
CPT/HCPCS: 36415; 80053; 83036; 83735; 83970; 84439; 84443; 84481; 85652; 86038; 86140; 86225; 86235

== ENCOUNTER → 2020-08-30 08:51 | Outpatient (CLI) | payer MEDICARE, OTHER, SELFPAY ==
--- NOTE | 2020-08-30 11:19 | NEURO ---
NCS and/or EMG Patient Report Ordering Doctor: JicelesteMary DATE OF SERVICE: 08/30/20 Indication: Episodic muscle spasms throughout her entire body. She has had cramps for years, but recently she has had several bouts of more severe pain. Findings: Nerve conduction studies were performed in the right upper and left lower extremity. The right median motor study recording the abductor pollicis brevis showed a normal amplitude, normal distal latency and normal conduction velocity. The right ulnar motor study recording the abductor digiti minimi showed a normal amplitude, normal distal latency and normal conduction velocity. No conduction block or focal slowing was present across the elbow. The right median sensory response recording digit two showed a normal amplitude, latency and conduction velocity. The right ulnar sensory response recording digit five showed a normal amplitude, latency and conduction velocity. The right radial sensory response recording over the extensor snuff box showed a normal amplitude, latency and conduction velocity. The left peroneal motor study recording the extensor digitorum brevis showed a normal amplitude, normal distal latency and normal conduction velocity. No conduction block or focal slowing was present across the fibular neck. The left tibial motor study recording the abductor hallucis brevis showed a normal amplitude, normal distal latency and normal conduction velocity. Left sural sensory response showed a normal amplitude and conduction velocity. Needle EMG of the right upper extremity muscles was performed. No active denervation was present in any muscle. The right triceps demonstrated motor units which were large amplitude, long duration, and mildly polyphasic. The right flexor carpi radialis revealed motor units that were slightly long duration and polyphasic. The other examined muscles in the right upper extremity were normal morphology, activation, and recruitment patterns. Needle EMG of the left lower extremity muscles was performed. No active denervation was present in any muscle. All examined muscles demonstrated normal motor unit morphology, activation, and recruitment patterns. Impression: This is a mildly abnormal study. There is electrophysiologic evidence of a mild, chronic, right C7 radiculopathy without active denervation. There was no electrophysiologic evidence of peripheral neuropathy. Furthermore, no evidence of peripheral nerve hyperexcitability was recorded in any muscle (e.g. cramps, neuromyotonia, fasciculations). Moe Martin D.O.
== END ==
PROVIDERS: PCP Family Medicine; Referring Provider Family Medicine; Visit Provider Family Medicine
DX: R25.3 Fasciculation (principal); M79.602 Pain in left arm; M79.601 Pain in right arm; R20.0 Anesthesia of skin
CPT/HCPCS: 95885; 95886; 95912

== ENCOUNTER → 2020-09-14 07:03 | Outpatient (CLI) | payer MEDICARE, OTHER, SELFPAY ==
--- NOTE | 2020-09-14 07:28 | MRI_ITS ---
STUDY: MRI BRAIN WITHOUT CONTRAST REASON FOR EXAM: Female, 70 years old. HEADACHES, H/O SUBDURAL HEMATOMA, MEMORY CHANGES TECHNIQUE: Standardized multiplanar fat and water weighted pulse sequences were obtained. COMPARISON: CT 03/25/2015 FINDINGS: Normal size of the ventricles and extra-axial spaces for the patient''s age. Normal white matter tracts of the supratentorial brain. There is no evidence for recent intracranial ischemia or other cause of cytotoxic edema on diffusion weighted imaging (DWI). Normal T2* images of the brain without demonstrated susceptibility artifact. There is no demonstrated hemosiderin stain. Normal bilateral basal ganglia. Normal thalami. There is no extra-axial fluid accumulation. Normal flow voids within the major intracranial circulation suggesting patency by spin echo criteria. Normal sella turcica, pituitary gland, infundibular stalk, optic chiasm and hypothalamus. Normal tectal plate and pineal gland. Normal midbrain, pierce and medulla. Normal cerebellum. Normal basal cisterns. Normal bilateral temporal bones. Normal bilateral internal auditory canals. No demonstrated orbital abnormality, within the constraints of a routine brain study. Normal visualized paranasal sinuses. Healed left parietal craniotomy. Normal visualized soft tissue structures. Normal visualized upper cervical spine. MRI/Brain without Contrast IMPRESSION: Normal unenhanced MRI of the brain after left parietal craniotomy. Electronically Signed: Padilla Henderson MD at 11:09 EDT Tel , Service support ,
--- NOTE | 2020-09-14 07:28 | MRI_ITS ---
STUDY: MRI CERVICAL SPINE WITHOUT CONTRAST REASON FOR EXAM: Female, 70 years old. RADICULOPATHY TECHNIQUE: Standardized fat and water weighted pulse sequences were obtained in the sagittal and axial planes. COMPARISON: 12/16/2019 FINDINGS: Normal foramen magnum and brainstem-cervical cord junction. Normal craniovertebral junction. Normal anterior atlantoaxial articulation. Normal odontoid process. Normal cervical lordosis. Normal vertebral bodies and posterior osseous elements. C2-3: Normal endplates. Normal disc height, signal and morphology. Normal central canal and intervertebral neural foramina. C3-4: No change in the mild broad disc osteophyte, asymmetric to the left which produces mild spinal stenosis but no neural foraminal stenosis. C4-5: No change in the mild broad disc osteophyte complex asymmetric to the right which produces mild spinal stenosis but no neural foraminal stenosis. C5-6: No change in the moderate broad disc osteophyte complex which produces moderate spinal stenosis with abutment the central spinal cord and mild bilateral neural foraminal stenosis. C6-7: No change in the mild broad disc osteophyte complex asymmetric to the left which produces mild spinal stenosis but no neural foraminal stenosis. C7-T1: Normal endplates. Normal disc height, signal and morphology. Normal central canal and intervertebral neural foramina. Normal cervical cord. There is no change in 1.6 cm hyperintense lesion of the left lobe of the thyroid gland likely consistent with a colloid cyst. Correlation with thyroid ultrasound is recommended. MRI/Spine Cervical (Routine) IMPRESSION: 1. No change in mild diffuse degenerative disc disease as described above. 2. No change in 1.6 cm hyperintense lesion of the left lobe of the thyroid gland and correlation with thyroid ultrasound is recommended. Electronically Signed: Padilla Henderson MD at 11:16 EDT Tel , Service support ,
== END ==
PROVIDERS: PCP Family Medicine; Referring Provider Family Medicine; Visit Provider Family Medicine
DX: M54.12 Radiculopathy, cervical region (principal); R51.9 Headache, unspecified; Z86.79 Personal history of other diseases of the circulatory system; R41.89 Other symptoms and signs involving cognitive functions and awareness; R46.89 Other symptoms and signs involving appearance and behavior
CPT/HCPCS: 70551; 72141

== ENCOUNTER 2020-10-04 09:36 | Emergency (ER) | payer OTHER, MEDICARE, SELFPAY ==
[2020-10-04 09:37] VITALS: BP 146/70; PULSE 78; RESP 18; TEMP 36.4; O2SAT 96; BMI 31.3
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
[2020-10-04 11:10] VITALS: RESP 16
== END 2020-10-04 11:11 | disposition home or self-care (01) ==
PROVIDERS: Emergency Provider Emergency Medicine; PCP Family Medicine
DX: S09.90XA Unspecified injury of head, initial encounter (principal); V44.5XXA Car driver injured in collision with heavy transport vehicle or bus in traffic accident, initial encounter; Y93.9 Activity, unspecified; Y92.9 Unspecified place or not applicable; Y99.9 Unspecified external cause status; K21.9 Gastro-esophageal reflux disease without esophagitis; F17.200 Nicotine dependence, unspecified, uncomplicated; Z79.899 Other long term (current) drug therapy
CPT/HCPCS: 70450; 99282

== ENCOUNTER 2021-05-09 17:49 | Emergency (ER) | payer MEDICARE, OTHER, SELFPAY ==
[2021-05-09 17:50] VITALS: BP 126/84; PULSE 51; RESP 18; TEMP 36.4; O2SAT 95; BMI 33.9
--- NOTE | 2021-05-09 19:40 | EDS_ITS ---
HPI History of Present Illness Chief Complaint: Abd Pain Informant: patient Narrative Narrative: 70-year-old female presenting to the emergency room with abdominal pain and vomiting. Patient is not a complete historian so part of the history is provided through doctors notes. Patient was recently found on CT to have choledocholithiasis and cholelithiasis. She saw Dr. Gray in the office and is scheduled to undergo ERCP tomorrow followed with cholecystectomy in 1 week. Patient states today around 2 she ate lunch and then vomited had pain in her upper abdomen. She states the pain is still present. No fevers. PFSH PFSH Medical History Alcohol use Anemia Arthritis Back pain Brain bleed Duodenal ulcer Easy bruising Former smoker Gastric reflux GERD (gastroesophageal reflux disease) GI bleed History of diverticulitis History of GI bleed History of muscle spasm History of stress test Leg cramps Restless legs SDH (subdural hematoma) Seizures Wears dentures Home Medications cholecalciferol (vitamin D3) [Vitamin D3] 1,000 unit PO DAILY 07/15/17 [History Last Taken Unknown] cyanocobalamin (vitamin B-12) 1,000 mcg PO DAILY 07/15/17 [History Last Taken Unknown] Saccharomyces boulardii 250 mg capsule 250 mg PO BID 05/04/21 [History Last Taken Unknown] ascorbic acid (vitamin C) 500 mg capsule 500 mg PO DAILY 05/04/21 [History Last Taken Unknown] pantoprazole 40 mg PO DAILY 05/09/21 [History Last Taken Unknown] Allergy/AdvReac Type Severity Reaction Status Date / Time Penicillins Allergy Unknown Verified 05/09/21 17:50 prednisone Allergy Unknown Verified 05/09/21 17:50 Family History Mother Colon cancer Father Colon cancer Aunt Colon cancer Surgical History Hx of colonoscopy Hx of esophagogastroduodenoscopy S/P tubal ligation S/P wrist surgery Status post craniotomy Social History Smoking Status: Former smoker alcohol intake: never ROS ROS ED Constitutional Constitutional ED: Denies chills, fever(s) or weight loss Eyes Eyes: Denies change in vision or diplopia ENT ENT ED: Denies ear pain, rhinorrhea or sore throat Cardiovascular Cardiovascular: Denies chest pain, orthopnea, palpitations or racing heartbeat Respiratory/Chest Respiratory/Chest: Denies cough, dyspnea or orthopnea Gastrointestinal Gastrointestinal: Reports abdominal pain, nausea and vomiting; Denies diarrhea Genitourinary Genitourinary ED: Denies dysuria, hematuria or urinary frequency Musculoskeletal Musculoskeletal: Denies arthralgias or myalgias Integumentary Denies abscess or rash Neurologic Neurologic: Denies headache(s) or weakness Psychiatric Psychiatric: Denies anxiety, depression, suicidal ideation or suicidal thoughts Endocrine Endocrinology: Denies polydipsia, polyphagia or polyuria Allergic/Immunologic Allergic/Immunologic ED: Denies mouth swelling, tongue swelling or urticaria EXAM Physical Exam Const Vital Signs: 05/09/21 17:50 Temperature 97.6 F L Temperature Source Temporal Pulse Rate 51 L Respiratory Rate 18 Blood Pressure 126/84 H Blood Pressure Mean 98 Pulse Ox 95 Oxygen Delivery Method Room Air Positive well nourished and well developed General Appearance ED: well developed HEENT Reports normocephalic, head/scalp atraumatic, TM's clear and moist mucous membranes Negative for trauma Tympanic Membrane ED: Yes TM's clear Eyes PERRL and EOMs intact bilaterally Neck no lymphadenopathy, supple and no JVD Resp normal respiratory effort and clear to auscultation bilaterally Cardio regular rate, regular rhythm and no murmurs GI non-tender Auscultation: normoactive bowel sounds Palpation: soft and tender epigastric Back/Spine no CVA tenderness and normal ROM Extremity normal to inspection General Extremety ED: Negative for edema General Extremity: Negative for edema Neuro oriented x3 and CN's II-XII intact bilaterally Sensorium / Orientation: alert Motor Exam: strength 5/5 throughout Psych mental status grossly normal Mood & Affect: Negative for depressed or tearful Skin no rashes or lesions noted and no wounds MDM MDM MDM Narrative Medical decision making narrative: Patient's white blood cell count is 10.1 with 83.6% neutrophils. Total bilirubin is 1.2 direct bilirubin 0.6 AST is 112 and ALT is 70. These are elevated compared to her last testing. Lipase 147. Ultrasound of the gallbladder demonstrates choledocholithiasis and cholelithia sis. There is some pericholecystic fluid. Patient received morphine and Zofran and her pain is significantly better. Her abdomen is actually benign at this point. I spoke with our barrel rifler button Surgeon Dr. Cross. The patient received a dose of Invanz. She will be discharged home with follow-up tomorrow morning for her procedure. Her surgeon will be updated. Patient to return during the night if she is worsening such as fever increasing pain vomiting or any concerns Lab Data Attestation: I reviewed the patient's lab results. Labs: Laboratory Results - last 24 hr 05/09/21 05/09/21 20:15 20:15 WBC 10.1 RBC 4.57 Hgb 13.9 Hct 41.7 MCV 91.2 MCH 30.4 MCHC 33.3 RDW Std Deviation 42.7 RDW Coeff of Bria 13.0 Plt Count 233 MPV 9.6 Immature Gran % (Auto) 0.300 Neut % (Auto) 83.6 H Lymph % (Auto) 9.4 L Gaines % (Auto) 5.9 Eos % (Auto) 0.6 Baso % (Auto) 0.2 Absolute Neuts (auto) 8.4 H Absolute Lymphs (auto) 0.95 Nucleated RBC % 0 Sodium 142 Potassium 3.7 Chloride 107 Carbon Dioxide 29.0 Anion Gap 6 BUN 9 Creatinine 0.75 Estim Creat Clear Calc 49.70 Est GFR (MDRD) Af Amer 98 Est GFR (MDRD) Non-Af 81 BUN/Creatinine Ratio 11.9 Glucose 132 H Calcium 8.8 Total Bilirubin 1.20 H Direct Bilirubin 0.63 H AST 112 H ALT 70 H Alkaline Phosphatase 87 Total Protein 6.9 Albumin 3.3 Globulin 3.6 Lipase 147 Radiography Diagnostic Testing: Clinical Impression(s) from Imaging Studies Gallbladder Ultrasound 05/09/21 21:06 IMPRESSION: Fatty enlarged liver. Cholelithiasis with mild pericholecystic fluid. Dilated common bile duct with choledocholithiasis. Electronically Signed: Roderick Dumas DO at 23:00 EST Tel [phone], Service support , Discharge Plan Triage Chief Complaint: Abd Pain ED Provider: Javed Gallegos Dx/Rx/DC Orders Clinical Impression: Choledocholithiasis, Cholelithiasis, Biliary colic Instructions: ED Gallstones with Biliary Colic Prescriptions: No Action ascorbic acid (vitamin C) 500 mg capsule 500 mg PO DAILY RF: 0 Saccharomyces boulardii [Daily Probiotic (S. boulardii)] 250 mg capsule 250 mg PO BID RF: 0 cholecalciferol (vitamin D3) [Vitamin D3] 1,000 UNIT capsule 1,000 unit PO DAILY RF: 0 cyanocobalamin (vitamin B-12) 1,000 MCG capsule 1,000 mcg PO DAILY RF: 0 pantoprazole 40 MG tablet,delayed release (DR/EC) 40 mg PO DAILY RF: 0 Primary Care Provider: Mary Smith Referrals: Ole Gray MD [STAFF PHYSICIAN] - 1 Day Mary Smith DO [Primary Care Provider] - Disposition Disposition: Home, Self Care
[2021-05-09] MEDS: Ondansetron 4 MG/2 ML Vial IV (20:11)
[2021-05-09] MEDS: Morphine 4 MG/ML Syringe IV (20:12)
[2021-05-09 20:22] LABS: Absolute Lymphocyte Count 0.95 X10^3/uL (0.83-4.51); Absolute Neutrophil Count 8.4 X10^3/uL (2.0-7.7); Basophil# 0.02 X10^3/uL; Basophil% 0.2 % (0-1); Eosinophil# 0.06 X10^3/uL; Eosinophils% 0.6 % (0-5); Hematocrit 41.7 % (37-47); Hemoglobin 13.9 g/dL (12.0-15.0); Lymphocyte # 0.95 X10^3/ul (0.83-4.51); Lymphocyte % 9.4 % (19-41); Mean Corp Hgb Conc 33.3 g/dL (32-36); Mean Corpuscular Hgb 30.4 pg (27.0-32.0); Mean Corpuscular Volume 91.2 fL (81-99); Mean Platelet Vol. 9.6 fl (6.2-12.0); Monocyte% 5.9 % (0-10); NRBC Flagged by Analyzer 0 % (0-5); Neutrophil # 8.44 X10^3/uL (2.7-7.7); Neutrophil % 83.6 % (47-70); Platelet Count 233 K/mm3 (150-450); RBC Distribution Width SD 42.7 fl (35.1-43.9); Red Blood Count 4.57 M/mm3 (4.2-5.4); White Blood Count 10.1 K/mm3 (4.4-11.0)
[2021-05-09 20:43] LABS: AST(SGOT) 112 U/L (15-37); Alanine Aminotransfer ALT/SGPT 70 U/L (13-56); Albumin, Serum 3.3 g/dL (3.2-5.0); Alkaline Phosphatase 87 U/L (45-117); Anion Gap 6 (5-15); BUN 9 mg/dL (7-18); BUN/Creat Ratio 11.9 RATIO (10-20); Bilirubin, Direct 0.63 mg/dL (0.00-0.30); Calcium,Total 8.8 mg/dL (8.5-10.1); Chloride 107 mmol/L (98-107); Creatinine, Serum 0.75 mg/dL (0.55-1.02); EST Glomerular Filtration Rate 81 mL/min (>60); Est Glom Filt Rate - Afr Amer 98 mL/min (>60); Globulin 3.6 g/dL (2.2-4.2); Glucose 132 mg/dL (74-106); Lipase 147 U/L (73-393); Potassium 3.7 mmol/L (3.5-5.1); Protein, Total 6.9 g/dL (6.4-8.2); Sodium Level 142 mmol/L (136-145)
--- NOTE | 2021-05-09 21:06 | US_ITS ---
STUDY: ABDOMINAL ULTRASOUND - RIGHT UPPER QUADRANT REASON FOR VISIT: Female, 70 years old pain TECHNIQUE: Ultrasound evaluation of the right upper quadrant was performed with real-time and static david-scale imaging. TECHNICAL QUALITY: Adequate. COMPARISON: None. FINDINGS: Liver: The liver measures 17.2 cm. There is fatty echogenicity of the liver. The bile ducts are within normal limits. There is hepatic color flow. The direction of portal flow is hepatopetal. There is no demonstrated mass lesion. Gallbladder: Normal distended gallbladder. The gallbladder wall measures 2.9 mm. There is a negative sonographic Marin''s sign. There is pericholecystic fluid. There are multiple gallstones. Common Bile Duct (C.B.D.): The common bile duct measures 15.6 mm. There are intraluminal echogenic nodules likely related to choledocholithiasis measuring up to 1.7 cm. Pancreas: Normal size of the head, body and tail of the pancreas. There is increased echogenicity of the pancreas. There is no demonstrated pancreatic mass or cyst. Right Kidney: Normal size of the right kidney. The right kidney measures 9.5 x 5 x 4.1 cm. Normal renal cortex. The right cortex measures 1.0 cm. There is no demonstrated renal mass or cyst. There is no right hydronephrosis. US/Gallbladder IMPRESSION: Fatty enlarged liver. Cholelithiasis with mild pericholecystic fluid. Dilated common bile duct with choledocholithiasis. Electronically Signed: Roderick Dumas DO at 23:00 EST Tel [phone], Service support ,
[2021-05-09 23:24] VITALS: BP 109/68; PULSE 89; RESP 16; O2SAT 96
[2021-05-10 00:11] VITALS: BP 112/74; PULSE 78; RESP 16; O2SAT 97
== END 2021-05-10 00:12 | disposition home or self-care (01) ==
PROVIDERS: Emergency Provider Emergency Medicine; PCP Family Medicine
DX: K80.70 Calculus of gallbladder and bile duct without cholecystitis without obstruction (principal); M19.90 Unspecified osteoarthritis, unspecified site; Z87.891 Personal history of nicotine dependence; K21.9 Gastro-esophageal reflux disease without esophagitis
CPT/HCPCS: 76705; 80048; 80076; 83690; 85025; 96365; 96375; 99283; J7030; A4216; J2405

== ENCOUNTER 2021-05-10 07:57 | Day surgery (SDC) | payer MEDICARE, OTHER, SELFPAY ==
--- NOTE | 2021-05-10 08:01 | EKG12_ITS ---
Test Reason : PRE-OP Blood Pressure : / mmHG Vent. Rate : 069 BPM Atrial Rate : 069 BPM P-R Int : 148 ms QRS Dur : 116 ms QT Int : 444 ms P-R-T Axes : 006 023 -04 degrees QTc Int : 475 ms Normal sinus rhythm Normal ECG When compared with ECG of 28-SEP-2017 22:37, QRS duration has increased Nonspecific T wave abnormality now evident in Anterior leads Confirmed by NADEEM KRAMER, ALISA ([id number]), editor city SUSHIL RUCKER ([id number]) on 05/13/2021 7:54:34 AM Referred By: Mary Smith Confirmed By:ALISA SILVER MD
[2021-05-10 08:32] VITALS: BP 116/48; PULSE 77; RESP 16; TEMP 37; O2SAT 95; BMI 33.0
--- NOTE | 2021-05-10 08:55 | HP.PCM_ITS ---
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: No Is patient in pain?: No Allergies Penicillins Allergy (Verified 05/04/21 13:19) Unknown prednisone Allergy (Verified 05/04/21 13:19) Unknown Medications cholecalciferol (vitamin D3) [Vitamin D3] 1,000 unit PO DAILY 07/15/17 [History Confirmed 12/06/19] cyanocobalamin (vitamin B-12) 1,000 mcg PO DAILY 07/15/17 [History Confirmed 12/06/19] pantoprazole 40 mg PO BID #60 tab 07/18/17 [Rx Confirmed 12/06/19] Saccharomyces boulardii 250 mg capsule 250 mg PO BID 05/04/21 [History Confirmed 05/04/21] ascorbic acid (vitamin C) 500 mg capsule mg PO 05/04/21 [History Confirmed 05/04/21] [facility] Medical History (Updated 05/04/21 @ 13:[address] Ole Gray MD) Brain bleed Duodenal ulcer GERD (gastroesophageal reflux disease) GI bleed SDH (subdural hematoma) Surgical History (Updated 05/04/21 @ 13:22 by Althea Aldana) S/P tubal ligation S/P wrist surgery Status post craniotomy Family History Mother Colon cancer Father Colon cancer Aunt Colon cancer Social History Smoking Status: Current every day smoker alcohol intake: never HPI HPI HPI: CARLA HARRISON, is a 70 F who presents to the office today for choledocholithiasis. Patient had a history of perforated gastric ulcer and had a B1 repair. The patient had a recent CT scan which shows choledocholithiasis and cholelithiasis which is new since 2018. Patient was sent here for ERCP. She is not complaining of any abdominal pain. She not have any nausea or vomiting. ROS General General: No weight change, appetite, fatigue, colon cancer, breast cancer or weakness HEENT HEENT: No difficulty swallowing, eye injury, eye surgery, swollen glands or hoarseness Endo Endocrine: No thyroid disease, diabetes mellitus, thyroid cancer, Hair loss, heat intolerance or cold intolerance Skin Skin: No rash or changing moles Breast Breast: No left breast lump, right breast lump, nipple discharge, breast pain, abnormal mammogram, abnormal US or breast enlargement Musc Musculoskeletal: Yes back problems and arthritis; No rheumatoid arthritis, gout or joint pain Cardio Cardiovascular: No murmur, pacemaker, heart disease, atrial fibrillation, high blood pressure, heart attack, heart stent, palpitations, shortness of breat with exertion or chest pain Psych Psychiatric: No depression, anxiety or hearing voices Resp Respiratory: No shortness of breath, No sleep apnea, No cough, No COPD, No asthma, No emphysema and No wheezing Gastro Gastrointestinal: Yes abdominal pain, Yes nausea or vomiting, No diarrhea, No constipation, No blood in stool, No acid reflux, Yes hemorrhoids, Yes ulcers, No gallbladder problem and No black,tarry stools Reji Hematologic: No blood thinners, No blood disorders, No bleeding, No anemia and No blood clots Neuro Neurologic: No system reviewed and no additional complaints, except as documented, No as per HPI, No abnormal gait, No abnormal hearing, No abnormal movements, No abnormal speech, No behavioral changes, No burning sensations, No confusion, No convulsions, No disequilibrium, No dizziness, No localized weakness, No frequent falls, No headache(s), No lack of coordination, No loss of vision, No memory loss, Yes numbness, No other visual disturbances, No radicular pain, No restless legs, No sensory deficit, No syncope, Yes tingling, No tremor(s), No weakness and No other Exam Const General: cooperative Orientation: alert and oriented x3 HENMT Head: normal to inspection Neck Neck: normal visual inspection and full ROM Chest Chest palpation & inspection: normal inspection of the chest Resp Effort & Inspection: normal respiratory effort Auscultation: clear to auscultation bilaterally Cardio Rate: regular rate Rhythm: regular rhythm GI Inspection: non-distended Palpation: soft and nontender Skin General: no rashes or lesions noted Neuro General: patient alert and patient oriented x3 Extrem General: full ROM Psych Appearance: grossly normal Mental Status: mental status grossly normal Assessment and Plan Assessment and Plan (1) Choledocholithiasis: Status: Acute Orders: Orders: ERCP Biliary Only Today Plan - Dr. Ole Gray MD: Patient has choledocholithiasis and I do recommend that she have ERCP with clearance of the stones. I explained that I would perform ERCP and then place a stent and then about a week later perform laparoscopic cholecystectomy with cholangiogram. I did offer her surgery at [facility] but she would rather have a here in [facility]. I discussed both procedures with her. I discussed ERCP in detail as well as the risks including but not limited to bleeding, infection, perforation of the bile duct or bowel, pancreatitis. I also explained the need for repeat ERCP after surgery to remove the stent. I also discussed laparoscopic cholecystectomy with her in detail. I discussed the procedure in detail as well as the risks including but not limited to bleeding, infection, injury to other organs surrounding the gallbladder. I discussed the possibility of bile duct injury and liver injury or bowel injury. I also discussed the increased risk for open conversion due to her prior laparotomy incision and possible scar tissue. Patient understands all the risks and is willing to undergo a laparoscopic cholecystectomy as well. Patient is also overdue for colonoscopy. Her last colonoscopy was 8 years ago and she has a history of colon cancer in both of her parents. I would recommend that after the gallbladder issue has resolved we perform a colonoscopy. Ole Gray MD Pager: [facility] [address] [place] [address] Office: The patient was in the emergency room yesterday for abdominal pain. Ultrasound gallbladder revealed some pericholecystic fluid but no thickening and her gallstones and choledocholithiasis. Plan for ERCP today and laparoscopic cholecystectomy next week. Plan for possible stent placement to prevent any obstruction in the interim. Ole Gray MD Pager: [facility] [address] [place] [address], [place] [address] Office:
[2021-05-10] MEDS: Lactated Ringers 1,000 ML 15 ML IV ×2 (09:00→11:07)
--- NOTE | 2021-05-10 10:02 | RAD_ITS ---
STUDY: ERCP REASON FOR EXAM: Female, 70 years old. PAIN FLUOROSCOPY TIME (if supplied): ( 95.6 seconds ) minutes/seconds TECHNIQUE: An ERCP was performed by the surgeon. Imaging was submitted. COMPARISON: None. FINDINGS: There is evidence of a dilated common bile duct with multiple filling defects suggestive of choledocholithiasis. A biliary stent was placed. RAD/ERCP Biliary Only IMPRESSION: Choledocholithiasis. A biliary stent was placed. Electronically Signed: Toy Panchal MD at 15:18 EST , Service support ,
--- NOTE | 2021-05-10 10:59 | OP.ERCP_ITS ---
Patient Name: Brooke Sanchez Procedure Date: 05/10/2021 9:52 AM Date of : 1950 Age: 70 Procedure: ERCP Indications: Bile duct stone(s) Providers: Ole Gray MD Medicines: General Anesthesia Patient Profile: This is a 70 year old female. Refer to note in patient chart for documentation of history and physical. Complications: No immediate complications. Procedure: Pre-Anesthesia Assessment: - Prior to the procedure, a History and Physical was performed, and patient medications and allergies were reviewed. The patient's tolerance of previous anesthesia was also reviewed. The risks and benefits of the procedure and the sedation options and risks were discussed with the patient. All questions were answered, and informed consent was obtained. Prior Anticoagulants: The patient has taken no previous anticoagulant or antiplatelet agents. After reviewing the risks and benefits, the patient was deemed in satisfactory condition to undergo the procedure. After obtaining informed consent, the scope was passed under direct vision. Throughout the procedure, the patient's blood pressure, pulse, and oxygen saturations were monitored continuously. The duodenoscope was introduced through the mouth, and advanced to the duodenum and used to inject contrast into the bile duct. The ERCP was accomplished without difficulty. The patient tolerated the procedure well. Scope In: 10:11:30 AM Scope Out: 10:51:23 AM Total Procedure Duration Time 0 hours 39 minutes 53 seconds Findings: Foreign object were removed through the ERCP scope. A 0.035 inch x 260 cm straight Dreamwire was passed into the biliary tree. The sphincterotome was passed over the guidewire and the bile duct was then deeply cannulated. Contrast was injected. The main bile duct contained multiple stones, the largest of which was large in diameter. Biliary sphincterotomy was made with a monofilament sphincterotome using ERBE electrocautery. There was no post-sphincterotomy bleeding. One 10 Fr by 7 cm plastic stent with a single external flap and a single internal flap was placed into the common bile duct. Bile flowed through the stent. The stent was in good position. Impression: - Foreign body removed. - Choledocholithiasis was found. Removal by biliary sphincterotomy was not accomplished; a stent was inserted. - A biliary sphincterotomy was performed. - One plastic stent was placed into the common bile duct. Recommendation: - Discharge patient to home. - Resume previous diet. - Continue present medications. - Refer to a surgeon at appointment to be scheduled. Procedure Code(s): --- Professional --- 51263, Endoscopic retrograde cholangiopancreatography (ERCP); with placement of endoscopic stent into biliary or pancreatic duct, including pre- and post-dilation and guide wire passage, when performed, including sphincterotomy, when performed, each stent [id number], Esophagogastroduodenoscopy, flexible, transoral; with removal of foreign body(s) Diagnosis Code(s): --- Professional --- K80.50, Calculus of bile duct without cholangitis or cholecystitis without obstruction CPT copyright 2017 [employer]. All rights reserved. The codes documented in this report are preliminary and upon research greenhouse supervisor review may be revised to meet current compliance requirements. Ole Gray MD 05/10/2021 10:58:52 AM This report has been signed electronically. Number of Addenda: 0 Note Initiated On: 05/10/2021 9:52 AM
--- NOTE | 2021-05-10 11:00 | OP.CCLET_ITS ---
05/10/2021 Mary Smith [address] [facility] [place] [address] [place] [address] Re : ERCP procedure for Brooke Sanchez Dear Dr. Smith This procedure was performed on Monday, May 10, 2021. My impressions and recommendations are as follows: Impressions : - Foreign body removed. - Choledocholithiasis was found. Removal by biliary sphincterotomy was not accomplished; a stent was inserted. - A biliary sphincterotomy was performed. - One plastic stent was placed into the common bile duct. Recommendations : - Discharge patient to home. - Resume previous diet. - Continue present medications. - Refer to a surgeon at appointment to be scheduled. My findings are described in the full procedure note, which is enclosed. If I can be of further assistance, please feel free to contact me at Doctor phone number(s): , Work: . Sincerely, Ole Gray MD 05/10/2021 10:58:52 AM This report has been signed electronically.
[2021-05-10 11:06] VITALS: BP 107/54; BP 116/48; PULSE 92; RESP 16; TEMP 35.9; O2SAT 92
[2021-05-10 11:15] VITALS: BP 112/57; BP 116/48; PULSE 82; RESP 18; O2SAT 93
[2021-05-10 11:25] VITALS: BP 105/65; BP 116/48; PULSE 74; RESP 18; TEMP 36.1; O2SAT 94
[2021-05-10] MEDS: oxyCODONE 5 MG Tablet PO (12:20)
[2021-05-10] MEDS: Acetaminophen 325 MG Tablet PO (12:21)
[2021-05-10 13:19] VITALS: BP 104/61; BP 116/48; PULSE 71; RESP 18; TEMP 36.1; O2SAT 96
== END 2021-05-10 13:22 ==
LOC: EN 07:59 → AC 08:00
PROVIDERS: PCP Family Medicine; Referring Provider Family Medicine; Visit Provider Surgery
PROC: (CPT 43260; principal; 2021-05-10 09:30)
DX: K80.50 Calculus of bile duct without cholangitis or cholecystitis without obstruction (principal); K21.9 Gastro-esophageal reflux disease without esophagitis; Z20.822 Contact with and (suspected) exposure to COVID-19; M19.90 Unspecified osteoarthritis, unspecified site; F17.200 Nicotine dependence, unspecified, uncomplicated; Z79.899 Other long term (current) drug therapy; Z80.0 Family history of malignant neoplasm of digestive organs
CPT/HCPCS: 43264; 43274; 74328; 76000; 87426; 93005; J7120; J1610; J2405

== ENCOUNTER → 2021-06-01 12:34 | Outpatient (CLI) | payer MEDICARE, OTHER, SELFPAY ==
--- NOTE | 2021-06-01 12:37 | STEWCON_ITS ---
Reason For Study: ECG CHANGES POST OP Stress Results Protocol: Bobo Protocol WITH DEFINITY Maximum Predicted HR: 150 bpm Target HR: 128 bpm % Maximum Predicted HR: 109 % DurationHeart Rate Stage (mm:ss) (bpm) BP Comment BASELINE 85 118/664 CC DEFINITY FOR ENTIRE TEST STAGE 1 3:00 142 158/82 STAGE 2 3:00 164 170/80NO CHEST PAIN, INCREASED SOB RECOVERY 97 118/80 Stress Duration: 6:00 mm:ss Maximum Stress HR: 164 bpm Baseline Echocardiogram Findings Stress Echo Wall motion Data Resting WM Intermediate WM Stress WM ECHO/Stress Test Echo W/Contrast Interpretation Summary Exercise stress echocardiogram. 71-year-old lady with a history of postoperative EKG changes. Resting EKG demonstrates normal sinus rhythm with a rate of 85 bpm normal inter vals are noted resting blood pressure is 118/66 mmHg. The patient exercised according to regul ar Bobo protocol for total duration of 6 minutes the maximum heart rate attained was 176 bpm which w as 117% of max impact at heart rate the maximum workload was 7 metabolic equivalents. At rest there w ere no ST or T wave changes noted to suggest ischemia and at peak exercise upsloping ST changes wer e noted with did not meet the criteria for ischemia. No clinical angina was noted the test was termi nated due to dyspnea. The peak blood pressure was 170/80 mmHg. Stress echocardiogram. Resting echocardiogram was performed with Definity enhan cement and demonstrated an ejection fraction of approximately 60%. Low ventricular hypertr ophy was noted. Images were obtained immediately post exercise and demonstrated thickening of a ll villafana with reduction in the ventricular cavity size peaking at 70%. No wall motion abnorma lities were noted. Conclusion: Exercise stress echo with no EKG or echocardiographic criteria for ischemia at a moderate workload. Ordering Physician: Mary Smith Referring Physician: Mary Smith Performed By: David, Ninfa, RDCS, RVT
== END ==
PROVIDERS: PCP Family Medicine; Referring Provider Family Medicine; Visit Provider Family Medicine
DX: R94.31 Abnormal electrocardiogram [ECG] [EKG] (principal)
CPT/HCPCS: 93017; 93350; J7040; Q9957; A4216; C8928

== ENCOUNTER 2021-09-05 19:18 | Emergency (ER) | payer MEDICARE, OTHER, SELFPAY ==
[2021-09-05 19:18] VITALS: BP 122/73; PULSE 84; RESP 16; TEMP 37; O2SAT 97; BMI 28.0
--- NOTE | 2021-09-05 19:51 | EKG12_ITS ---
Test Reason : WEAKNESS Blood Pressure : / mmHG Vent. Rate : 071 BPM Atrial Rate : 071 BPM P-R Int : 118 ms QRS Dur : 114 ms QT Int : 470 ms P-R-T Axes : 000 017 013 degrees QTc Int : 510 ms Normal sinus rhythm non specific T wave abnormality Confirmed by COLLIN KRAMER, TOO ([id number]), dictionary editor FÉLIX DUNHAM ([id number]) on 09/08/2021 11:27:44 AM Referred By: CODY Confirmed By:TOO POLANCO MD
--- NOTE | 2021-09-05 19:51 | CT_ITS ---
We are attempting to reach an attending provider to discuss findings. An addendum with communication details will be sent when the communication is complete. STUDY: CT BRAIN WITHOUT CONTRAST REASON FOR EXAM: Female, 71 years old. headache,confusion TECHNIQUE: Transaxial CT imaging of the brain was performed without administration of intravenous contrast material. Individualized dose optimization techniques were used for this CT. COMPARISON: 10.04.20 FINDINGS: There is a left craniotomy/craniectomy. Normal soft tissues. Normal size ventricles and extra-axial spaces for the patient''s age. Normal white matter tracts of the cerebral hemispheres. Normal basal ganglia and thalami. Normal brainstem. Normal cerebellum. Right subdural hematoma. This is 19 mm in greatest width. 8.8 mm right to left midline shift. There are no findings of an acute ischemic infarction. Normal visualized paranasal sinuses. ASPECTS 10 CT/Brain/Head without Contrast IMPRESSION: Right subdural hematoma. This is 19 mm in greatest width. 8.8 mm right to left midline shift. Electronically Signed: Jong Pulido MD at 20:37 EDT ,
--- NOTE | 2021-09-05 20:03 | EDS_ITS ---
HPI History of Present Illness Chief Complaint: Weakness Informant: patient and family Onset/Context/Timing Onset: Days Context: Gradual Onset Narrative Narrative: Patient presents with generalized weakness, headache, confusion for at least the last 2 to 4 days. She has had nausea and vomiting. No diarrhea. She reports occasional mild cough. She reportedly has been taking quite a bit o f Tylenol. Family member states that she has not been feeling well since her most recent surgery in late June or early July. At that time she had part of her stomach and small intestine removed secondary to a duodenal ulcer. [facility] Medical History (Updated 09/05/21 @ 21:[address] Saira Castorena MD) Alcohol use Anemia Arthritis Back pain Brain bleed Duodenal ulcer Easy bruising Former smoker Gastric reflux GERD (gastroesophageal reflux disease) GI bleed History of diverticulitis History of GI bleed History of muscle spasm History of stress test Leg cramps Restless legs SDH (subdural hematoma) Seizures Wears dentures Home Medications pantoprazole [Protonix] 40 mg PO DAILY 05/09/21 [History Last Taken 05/10/21 04:00] Allergy/AdvReac Type Severity Reaction Status Date / Time Penicillins Allergy Unknown Verified 09/05/21 19:20 prednisone Allergy Unknown Verified 09/05/21 19:20 Family History Mother Colon cancer Father Colon cancer Aunt Colon cancer Surgical History Hx of colonoscopy Hx of esophagogastroduodenoscopy S/P tubal ligation S/P wrist surgery Status post craniotomy Social History Smoking Status: Former smoker alcohol intake: never ROS ROS ED Constitutional Constitutional ED: Denies chills or fever(s) Eyes Eyes: Denies change in vision ENT ENT ED: Denies sore throat Cardiovascular Cardiovascular: Denies chest pain Respiratory/Chest Respiratory/Chest: Reports cough; Denies dyspnea Gastrointestinal Gastrointestinal: Reports nausea and vomiting; Denies abdominal pain or diarrhea Genitourinary Genitourinary ED: Denies dysuria Musculoskeletal Musculoskeletal: Denies back pain Integumentary Denies rash Neurologic Neurologic: Reports headache(s) and weakness Allergic/Immunologic Allergic/Immunologic ED: Denies urticaria EXAM Physical Exam Const Vital Signs: 09/05/21 19:18 09/05/21 20:08 Temperature 98.6 F Temperature Source Oral Pulse Rate 84 61 Respiratory Rate 16 17 Blood Pressure 122/73 H 123/71 H Blood Pressure Mean 89 88 Pulse Ox 97 96 Oxygen Delivery Method Room Air Positive well nourished and well developed General Appearance ED: well developed HEENT Reports moist mucous membranes Eyes PERRL and EOMs intact bilaterally Neck supple Chest Wall inspection of chest normal and palpation of chest normal Resp normal respiratory effort and clear to auscultation bilaterally Cardio regular rate and regular rhythm GI non-tender Auscultation: hypoactive bowel sounds Palpation: soft Extremity normal to inspection Neuro oriented x3 Sensorium / Orientation: alert Psych Psych Narrative: Flat affect. Skin no rashes or lesions noted MDM MDM MDM Narrative Medical decision making narrative: Head CT, lab work, EKG, chest x-ray ordered. Lab Data Attestation: I reviewed the patient's lab results. Labs: Laboratory Results - last 24 hr 09/05/21 09/05/21 09/05/21 20:05 20:05 20:05 WBC 8.9 RBC 4.65 Hgb 13.2 Hct 40.9 MCV 88.0 MCH 28.4 MCHC 32.3 RDW Std Deviation 45.9 H RDW Coeff of Bria 14.5 Plt Count 225 MPV 10.1 Immature Gran % (Auto) 0.500 Neut % (Auto) 74.2 H Lymph % (Auto) 18.6 L [place] % (Auto) 6.4 Eos % (Auto) 0.2 Baso % (Auto) 0.1 Absolute Neuts (auto) 6.6 Absolute Lymphs (auto) 1.65 Nucleated RBC % 0 Sodium 143 Potassium 3.3 L Chloride 110 H Carbon Dioxide 26.0 Anion Gap 7 BUN 9 Creatinine 0.71 Estim Creat Clear Calc 49.00 Est GFR (MDRD) Af Amer 104 Est GFR (MDRD) Non-Af 86 BUN/Creatinine Ratio 12.7 Glucose 130 H Calcium 8.9 Total Bilirubin 0.90 Direct Bilirubin 0.26 AST 28 ALT 27 Alkaline Phosphatase 62 Troponin I High Sens 6 Total Protein 7.0 Albumin 3.4 Globulin 3.6 Acetaminophen < 2.0 L Radiography Chest X-Ray - ED: 1 View, Read by ED Physician, Normal, Heart, Lungs and Mediastinum Diagnostic Testing: Clinical Impression(s) from Imaging Studies Brain CT 09/05/21 19:51 IMPRESSION: Right subdural hematoma. This is 19 mm in greatest width. 8.8 mm right to left midline shift. Electronically Signed: Jong Pulido MD at 20:37 EDT , ADDENDUM: 09/05/212047 IMPRESSION: Right subdural hematoma. This is 19 mm in greatest width. 8.8 mm right to left midline shift. N.B. : The above Results were Read Back by Jong Pulido MD to MD Raffaele, and understanding confirmed on 09/05/2021 20:41:15 (ET). Electronically Signed: Jong Pulido MD at 20:37 EDT , Chest X-Ray 09/05/21 20:10 EKG Initial EKG: Attestation: I personally reviewed and interpreted this EKG as follows: Interpretation: Sinus Rhythm (Sinus at 71 with no acute ischemia.) Treatment and Re-Evaluation Narrative: Lab work largely unremarkable. Head CT reveals acute on chronic right subdural hematoma with 19 mm thickness, 8.8 mm shift. Chest x-ray per my interpretation reveals chronic changes. Test results discussed with patient and family at bedside. She had previously been treated [facility] for subdural hemorrhage. She has been accepted in transfer by Dr. Rhodes. Discharge Plan Triage Chief Complaint: Weakness ED Provider: Saira Castorena Dx/Rx/DC Orders Clinical Impression: Subdural hemorrhage Prescriptions: No Action pantoprazole [Protonix] 40 MG tablet,delayed release (DR/EC) 40 mg PO DAILY RF: 0 Primary Care Provider: Mary Smith Referrals: Mary Smith DO [Primary Care Provider] - Disposition Disposition: Acute Care Hospital Discharge Location: [facility]
[2021-09-05] MEDS: 0.9% Normal Saline 1,000 ML 150 ML IV (20:07)
[2021-09-05 20:08] VITALS: BP 123/71; PULSE 61; RESP 17; O2SAT 96
--- NOTE | 2021-09-05 20:10 | RAD_ITS ---
INDICATION: cough EXAMINATION/TECHNIQUE: X-RAY - XR Chest 1 View 8:07 PM COMPARISON: Chest x-ray from abdominal series 12/06/2019. FINDINGS: LUNGS: No consolidation. No pneumothorax. MEDIASTINUM: Aorta tortuous. CARDIAC SILHOUETTE: Not enlarged. BONES AND SOFT TISSUES: No acute abnormalities. IMPRESSION: No acute findings. Electronically Signed: Ninfa Liriano MD at 21:06 EDT , RAD/Chest 1 View (Portable)
[2021-09-05 20:17] LABS: Absolute Lymphocyte Count 1.65 X10^3/uL (0.83-4.51); Absolute Neutrophil Count 6.6 X10^3/uL (2.0-7.7); Basophil# 0.01 X10^3/uL; Basophil% 0.1 % (0-1); Eosinophil# 0.02 X10^3/uL; Eosinophils% 0.2 % (0-5); Hematocrit 40.9 % (37-47); Hemoglobin 13.2 g/dL (12.0-15.0); Lymphocyte # 1.65 X10^3/ul (0.83-4.51); Lymphocyte % 18.6 % (19-41); Mean Corp Hgb Conc 32.3 g/dL (32-36); Mean Corpuscular Hgb 28.4 pg (27.0-32.0); Mean Platelet Vol. 10.1 fl (6.2-12.0); Monocyte# 0.57 X10^3/uL; Monocyte% 6.4 % (0-10); NRBC Flagged by Analyzer 0 % (0-5); Neutrophil # 6.56 X10^3/uL (2.7-7.7); Neutrophil % 74.2 % (47-70); Platelet Count 225 K/mm3 (150-450); RBC Distribution Width CV 14.5 % (11.6-14.6); RBC Distribution Width SD 45.9 fl (35.1-43.9); Red Blood Count 4.65 M/mm3 (4.2-5.4); White Blood Count 8.9 K/mm3 (4.4-11.0)
[2021-09-05 20:35] LABS: Acetaminophen (Tylenol) Level < 2.0 ug/mL (10.0-30.0)
[2021-09-05 21:04] LABS: AST(SGOT) 28 U/L (15-37); Alanine Aminotransfer ALT/SGPT 27 U/L (13-56); Albumin, Serum 3.4 g/dL (3.2-5.0); Alkaline Phosphatase 62 U/L (45-117); Anion Gap 7 (5-15); BUN 9 mg/dL (7-18); BUN/Creat Ratio 12.7 RATIO (10-20); Bilirubin, Direct 0.26 mg/dL (0.00-0.30); Calcium,Total 8.9 mg/dL (8.5-10.1); Chloride 110 mmol/L (98-107); Creatinine, Serum 0.71 mg/dL (0.55-1.02); EST Glomerular Filtration Rate 86 mL/min (>60); Est Glom Filt Rate - Afr Amer 104 mL/min (>60); Globulin 3.6 g/dL (2.2-4.2); Glucose 130 mg/dL (74-106); Potassium 3.3 mmol/L (3.5-5.1); Sodium Level 143 mmol/L (136-145); Troponin-I HS 6 pg/mL (3.0-54.0)
[2021-09-05] MEDS: Metoclopramide 10 MG/2 ML Vial 5 MG IV (21:05)
[2021-09-05 21:23] VITALS: BP 125/53; PULSE 78; RESP 21; TEMP 37.1; O2SAT 98
[2021-09-05 21:51] VITALS: BP 127/60; PULSE 62; RESP 18; O2SAT 99
[2021-09-05 22:06] LABS: International Normalized Ratio 1.3; Prothrombin Time (Protime)PT. 15.4 SECONDS (11.7-14.9)
== END 2021-09-05 22:10 | disposition short-term general hospital (02) ==
PROVIDERS: Emergency Provider Emergency Medicine; PCP Family Medicine; Visit Provider Emergency Medicine
DX: I62.00 Nontraumatic subdural hemorrhage, unspecified (principal); R11.2 Nausea with vomiting, unspecified; R41.0 Disorientation, unspecified; R53.1 Weakness; R51.9 Headache, unspecified; K21.9 Gastro-esophageal reflux disease without esophagitis; Z79.899 Other long term (current) drug therapy; Z87.891 Personal history of nicotine dependence; Z90.49 Acquired absence of other specified parts of digestive tract
CPT/HCPCS: 36415; 70450; 71045; 80048; 80076; 80329; 84484; 85025; 85610; 85730; 87811; 93005; 96361; 96374; 99285; J7030; A4216; G0480

== ENCOUNTER 2021-10-19 11:23 | Emergency (ER) | payer MEDICARE, OTHER, SELFPAY ==
[2021-10-19] VITALS (16 sets, daily range): BP systolic 100–141; BP diastolic 47–95; PULSE 73–88; RESP 12–18; TEMP 36.6; O2SAT 96–98; BMI 29.1
--- NOTE | 2021-10-19 11:47 | CT_ITS ---
STUDY: CT BRAIN WITHOUT CONTRAST REASON FOR EXAM: Female, 71 years old. Headache with recent bleed RADIATION DOSAGE (If Supplied By Facility): CTDIvol = ( 44.99 ) mGy, DLP = ( 796.11 ) mGycm TECHNIQUE: Transaxial CT imaging of the brain was performed without administration of intravenous contrast material. Individualized dose optimization techniques were used for this CT. COMPARISON: Comparison is made with prior study dated 09/05/2021. FINDINGS: Normal soft tissue structures. The patient is status post bilateral craniotomies. There is mild cerebral atrophy with widening of the extra-axial spaces and ventricular dilatation. Normal white matter tracts of the cerebral hemispheres. Normal basal ganglia and thalami. Normal brainstem. Normal cerebellum. There is evidence of a 2.3 cm x 0.6 cm acute epidural hematoma overlying the right frontal temporal lobes. The previously seen moderate sized right subdural hematoma has cleared. Normal visualized paranasal sinuses. CT/Brain/Head without Contrast IMPRESSION: Acute 2.3 cm x 0.6 cm epidural hematoma overlying the right frontal temporal lobes. Minimal surrounding mass effect. Electronically Signed: Toy Panchal MD at 12:24 EDT ,
--- NOTE | 2021-10-19 11:47 | EX.ED.DYSGE1 ---
HPI History of Present Illness Chief Complaint: General Illness Informant: patient Onset/Context/Timing Onset: Today and Yesterday Context: Gradual Onset Timing: Continuous Current Severity: Mild Maximum Severity: Mild Narrative Narrative: 71-year-old female history of 2 prior intracranial bleeds 1 7 years ago and 1 about a month ago. She was treated at [facility]. She also history of anemia, restless leg syndrome and seizures. Says since yesterday she has had pressure on her head. She denies any fall or trauma. She is on no blood thinners. She treated it with Tylenol last night and went to sleep. Today she states she has a mild headache. Prior similar symptoms: Yes Recent Illness/Hospitalization: Yes [facility] Medical History Alcohol use Anemia Arthritis Back pain Brain bleed Duodenal ulcer Easy bruising Former smoker Gastric reflux GERD (gastroesophageal reflux disease) GI bleed History of diverticulitis History of GI bleed History of muscle spasm History of stress test Leg cramps Restless legs SDH (subdural hematoma) Seizures Wears dentures Home Medications pantoprazole [Protonix] 40 mg PO DAILY 05/09/21 [History Last Taken 05/10/21 04:00] Allergy/AdvReac Type Severity Reaction Status Date / Time Penicillins Allergy Unknown Verified 09/05/21 19:20 prednisone Allergy Unknown Verified 09/05/21 19:20 ibuprofen AdvReac Other Verified 10/19/21 11:27 Family History Mother Colon cancer Father Colon cancer Aunt Colon cancer Surgical History Hx of colonoscopy Hx of esophagogastroduodenoscopy S/P tubal ligation S/P wrist surgery Status post craniotomy Social History Smoking Status: Former smoker alcohol intake: never ROS ROS ED ROS Narrative Mild headache. Review of Systems ROS Unobtainable: Denies due to encephalopathy Constitutional Constitutional ED: Denies fever(s) Eyes Eyes: Denies change in vision ENT ENT ED: Denies ear pain Cardiovascular Cardiovascular: Denies chest pain Respiratory/Chest Respiratory/Chest: Denies dyspnea Gastrointestinal Gastrointestinal: Denies abdominal pain, diarrhea, nausea or vomiting Genitourinary Genitourinary ED: Denies dysuria Musculoskeletal Musculoskeletal: Denies myalgias Integumentary Denies rash Neurologic Neurologic: Reports headache(s); Denies paresthesias or weakness Psychiatric Psychiatric: Denies depression Endocrine Endocrinology: Denies polyuria Allergic/Immunologic Allergic/Immunologic ED: Denies urticaria EXAM Physical Exam Narrative Exam Narrative: 71-year-old female no acute distress. Vital signs stable afebrile. Blood pressure 141/59. H EENT exam unremarkable atraumatic. Pupils round reactive light. No facial droop. Normal speech. Neck nontender no meningismus. Lungs clear to auscultation. Heart regular rate and rhythm rate about 80 no murmur. Abdomen soft nontender. Moving all 4 extremities. 5/5 rehabilitation services manager strength. Dorsi plantarflexion intact. Neurologic exam is normal. NIH is 0. She is awake and alert. No focal motor deficits. Answers questions follows commands. Const Vital Signs: 10/19/21 11:23 10/19/21 11:28 10/19/21 11:30 Temperature 97.9 F Temperature Source Oral Pulse Rate 81 Respiratory Rate 18 Respiratory Effort Normal Non-Labored Respiratory Pattern Normal Blood Pressure 141/59 H 128/95 H Blood Pressure Mean 86 106 Pulse Ox 98 Oxygen Delivery Method Room Air 10/19/21 12:00 10/19/21 12:36 10/19/21 13:05 Temperature Temperature Source Pulse Rate 73 Respiratory Rate 17 Respiratory Effort Respiratory Pattern Blood Pressure 111/82 H 110/54 L 127/59 H Blood Pressure Mean 91 72 81 Pulse Ox 98 Oxygen Delivery Method Room Air Positive well nourished and well developed; Negative for obese, cachectic, contractures or unkempt General Appearance ED: well developed and NAD; Negative for unkempt, cachectic, contractures, cyanotic, diaphoretic or pallor Nutritional Appearance: Negative for cachectic or obese HEENT Reports moist mucous membranes Negative for trauma or tenderness Eyes PERRL and EOMs intact bilaterally General Eye ED: Negative for pale conjunctiva or scleral icterus Neck no lymphadenopathy, supple and no JVD General: Negative for tenderness Chest Wall inspection of chest normal and palpation of chest normal Resp normal respiratory effort and clear to auscultation bilaterally Effort and Inspection: Negative for pain with movement Auscultation: Negative for rales, rhonchi or wheezes Cardio regular rate, regular rhythm, S1 normal heart sound, S2 normal heart sound and no murmurs GI normal to inspection, nondistended, normoactive bowel sounds, non-tender, non-distended and no masses Auscultation: normoactive bowel sounds Palpation: soft; Negative for tender, guarding or rebound tenderness present Back/Spine no CVA tenderness General Back: Negative for CVA tenderness Cervical Spine: Negative for cervical spine tenderness Thoracic Spine / Upper Back: Negative for thoracic spinal tenderness or paraspinal muscle tenderness Extremity normal to inspection General Extremety ED: Negative for edema or tenderness General Extremity: Negative for edema Neuro oriented x3 Sensorium / Orientation: alert; Negative for orientation impaired, lethargic or stuporous Motor Exam: strength 5/5 throughout; Negative for general weakness Psych mental status grossly normal Appearance: Negative for unkempt Attitude: No agitated Mood & Affect: Negative for depressed or tearful Skin no rashes or lesions noted and no wounds General Skin Exam: Negative for jaundice or pallor MDM MDM MDM Narrative Medical decision making narrative: 71-year-old female mild headache and head pressure. She had a intercranial bleed a month ago. We will get a CAT scan of her head. Otherwise her exam is normal. Her neurologic exam is normal. Repeat exam patient is doing well at 2:05 PM. I went over her CAT scan results with her. She had surgery done at [facility] a month ago. Have spoken to the transfer line I am just waiting for acceptance. Lab Data Attestation: I reviewed the patient's lab results. Lab results narrative: CBC shows a white count of 6. H&H of 11.7 and 36. PT/INR of 15 and 1.2. Electrolytes are unremarkable gap of 7. Normal BUN and creatinine. Glucose of 110. CAT scan show which is actually an epidural hematoma on the right frontal temporal lobes. Labs: Laboratory Results - last 24 hr 10/19/21 10/19/21 10/19/21 13:40 13:40 13:40 WBC 6.6 RBC 4.27 Hgb 11.7 L Hct 36.7 L MCV 85.9 MCH 27.4 MCHC 31.9 L RDW Std Deviation 46.3 H RDW Coeff of Bria 14.6 Plt Count 239 MPV 10.5 PT 15.1 H INR 1.2 Sodium 142 Potassium 3.8 Chloride 109 H Carbon Dioxide 26.0 Anion Gap 7 BUN 10 Creatinine 0.63 Estim Creat Clear Calc 50.91 Est GFR (MDRD) Af Amer 120 Est GFR (MDRD) Non-Af 99 BUN/Creatinine Ratio 15.9 Glucose 110 H Calcium 8.5 Radiography Diagnostic Testing: Clinical Impression(s) from Imaging Studies Brain CT 10/19/21 11:47 IMPRESSION: Acute 2.3 cm x 0.6 cm epidural hematoma overlying the right frontal temporal lobes. Minimal surrounding mass effect. Electronically Signed: Toy Panchal MD at 12:24 EDT , Discharge Plan Triage Chief Complaint: General Illness ED Provider: Wenceslao Mcdowell Dx/Rx/DC Orders Clinical Impression: Intracranial bleed, Epidural hematoma, Headache Prescriptions: No Action pantoprazole [Protonix] 40 MG tablet,delayed release (DR/EC) 40 mg PO DAILY RF: 0 Primary Care Provider: Mary Smith Referrals: Mary Smith DO [Primary Care Provider] - Disposition Disposition: Acute Care Hospital
[2021-10-19 13:47] LABS: Hematocrit 36.7 % (37-47); Hemoglobin 11.7 g/dL (12.0-15.0); Mean Corp Hgb Conc 31.9 g/dL (32-36); Mean Corpuscular Hgb 27.4 pg (27.0-32.0); Mean Corpuscular Volume 85.9 fL (81-99); Mean Platelet Vol. 10.5 fl (6.2-12.0); Platelet Count 239 K/mm3 (150-450); RBC Distribution Width CV 14.6 % (11.6-14.6); RBC Distribution Width SD 46.3 fl (35.1-43.9); Red Blood Count 4.27 M/mm3 (4.2-5.4); White Blood Count 6.6 K/mm3 (4.4-11.0)
[2021-10-19 13:53] LABS: International Normalized Ratio 1.2; Prothrombin Time (Protime)PT. 15.1 SECONDS (11.7-14.9)
[2021-10-19 13:59] LABS: Anion Gap 7 (5-15); BUN 10 mg/dL (7-18); BUN/Creat Ratio 15.9 RATIO (10-20); Calcium,Total 8.5 mg/dL (8.5-10.1); Chloride 109 mmol/L (98-107); Creatinine, Serum 0.63 mg/dL (0.55-1.02); EST Glomerular Filtration Rate 99 mL/min (>60); Est Glom Filt Rate - Afr Amer 120 mL/min (>60); Estimated Creatinine Clearance 50.91 ml/min; Glucose 110 mg/dL (74-106); Potassium 3.8 mmol/L (3.5-5.1); Sodium Level 142 mmol/L (136-145)
--- NOTE | 2021-10-19 14:33 | ED.RN ---
HEMORRHAGIC STROKE SET STARTED WHEN NOTIFIED OF CT RESULTS. RADIOLOGY DID NOT CALL MD TO NOTIFY.
== END 2021-10-19 15:20 | disposition short-term general hospital (02) ==
PROVIDERS: Emergency Provider Emergency Medicine; PCP Family Medicine; Visit Provider Emergency Medicine
DX: S06.4X0A Epidural hemorrhage without loss of consciousness, initial encounter (principal); K21.9 Gastro-esophageal reflux disease without esophagitis; Z87.891 Personal history of nicotine dependence
CPT/HCPCS: 70450; 80048; 85027; 85610; 99285; A4216

== ENCOUNTER → 2022-02-02 | Outpatient (CLI) | payer MEDICARE, OTHER, SELFPAY ==
[2022-02-02 10:19] LABS: Absolute Lymphocyte Count 1.76 X10^3/uL (0.83-4.51); Absolute Neutrophil Count 3.5 X10^3/uL (2.0-7.7); Basophil# 0.03 X10^3/uL; Basophil% 0.5 % (0-1); Eosinophil# 0.09 X10^3/uL; Eosinophils% 1.5 % (0-5); Hematocrit 39.8 % (37-47); Hemoglobin 12.9 g/dL (12.0-15.0); Lymphocyte # 1.76 X10^3/ul (0.83-4.51); Lymphocyte % 30.2 % (19-41); Mean Corp Hgb Conc 32.4 g/dL (32-36); Mean Corpuscular Hgb 29.1 pg (27.0-32.0); Mean Corpuscular Volume 89.8 fL (81-99); Mean Platelet Vol. 10.2 fl (6.2-12.0); Monocyte# 0.42 X10^3/uL; Monocyte% 7.2 % (0-10); NRBC Flagged by Analyzer 0 % (0-5); Neutrophil # 3.51 X10^3/uL (2.7-7.7); Neutrophil % 60.3 % (47-70); Platelet Count 196 K/mm3 (150-450); RBC Distribution Width CV 15.3 % (11.6-14.6); RBC Distribution Width SD 50.6 fl (35.1-43.9); Red Blood Count 4.43 M/mm3 (4.2-5.4); White Blood Count 5.8 K/mm3 (4.4-11.0)
[2022-02-02 10:47] LABS: Vitamin B12 1135 pg/mL (211-911); Vitamin D,25 Hydroxy 61.1 ng/mL
[2022-02-02 11:31] LABS: AST(SGOT) 40 U/L (15-37); Alanine Aminotransfer ALT/SGPT 39 U/L (13-56); Albumin, Serum 3.4 g/dL (3.2-5.0); Alkaline Phosphatase 77 U/L (45-117); Anion Gap 7 (5-15); BUN 13 mg/dL (7-18); BUN/Creat Ratio 17.8 RATIO (10-20); Calcium,Total 8.3 mg/dL (8.5-10.1); Chloride 105 mmol/L (98-107); Cholesterol 146 mg/dL (200); Creatinine, Serum 0.73 mg/dL (0.55-1.02); EST Glomerular Filtration Rate 84 mL/min (>60); Est Glom Filt Rate - Afr Amer 101 mL/min (>60); Ferritin 16 ng/mL (8-252); Globulin 3.5 g/dL (2.2-4.2); Glucose 92 mg/dL (74-106); High Density Lipoprotein 64 mg/dL; Iron 52 ug/dL (50-170); Magnesium 1.8 mg/dL (1.6-2.6); Potassium 3.9 mmol/L (3.5-5.1); Protein, Total 6.9 g/dL (6.4-8.2); Sodium Level 138 mmol/L (136-145); Thyroid Stim Hormone (TSH) 1.75 uIU/mL (0.358-3.74); Triglycerides 47 mg/dL; Very Low Density Lipoprotein 9 mg/dL (5-40)
[2022-02-07 12:07] LABS: PROELU- Albumin, Urine 34.6 % (.); PROELU- Alpha-1-Globulin,Ur 5.1 % (.); PROELU- Beta Globulin, Ur 31.2 % (.); PROELU- Gamma Globulin, Ur 10.1 % (.)
== END | disposition home or self-care (01) ==
LOC: MTLAB 09:13
PROVIDERS: PCP Family Medicine; Referring Provider Family Medicine; Visit Provider Family Medicine
DX: D50.9 Iron deficiency anemia, unspecified (principal); R53.83 Other fatigue; E55.9 Vitamin D deficiency, unspecified; E53.8 Deficiency of other specified B group vitamins; R20.2 Paresthesia of skin; R25.2 Cramp and spasm; G62.9 Polyneuropathy, unspecified
CPT/HCPCS: 36415; 80053; 80061; 82306; 82607; 82728; 82746; 83540; 83735; 84166; 84443; 85025

== ENCOUNTER → 2022-07-28 | Outpatient (CLI) | payer MEDICARE, OTHER, SELFPAY ==
[2022-07-28 08:29] LABS: Absolute Lymphocyte Count 1.59 X10^3/uL (0.83-4.51); Absolute Neutrophil Count 6.5 X10^3/uL (2.0-7.7); Basophil# 0.03 X10^3/uL; Basophil% 0.3 % (0-1); Eosinophil# 0.13 X10^3/uL; Eosinophils% 1.5 % (0-5); Hematocrit 45.5 % (37-47); Hemoglobin 14.4 g/dL (12.0-15.0); Lymphocyte # 1.59 X10^3/ul (0.83-4.51); Mean Corp Hgb Conc 31.6 g/dL (32-36); Mean Corpuscular Hgb 29.7 pg (27.0-32.0); Mean Corpuscular Volume 93.8 fL (81-99); Mean Platelet Vol. 9.8 fl (6.2-12.0); Monocyte# 0.54 X10^3/uL; Monocyte% 6.1 % (0-10); NRBC Flagged by Analyzer 0 % (0-5); Neutrophil # 6.52 X10^3/uL (2.7-7.7); Neutrophil % 73.8 % (47-70); Platelet Count 233 K/mm3 (150-450); RBC Distribution Width CV 13.3 % (11.6-14.6); RBC Distribution Width SD 45.9 fl (35.1-43.9); Red Blood Count 4.85 M/mm3 (4.2-5.4); White Blood Count 8.8 K/mm3 (4.4-11.0)
[2022-07-28 08:44] LABS: PTHIN 58.2 pg/mL (18.4-80.1)
[2022-07-28 08:47] LABS: ALB/GLOB Ratio 0.9 RATIO (0.9-2.4); AST(SGOT) 35 U/L (15-37); Alanine Aminotransfer ALT/SGPT 39 U/L (13-56); Albumin, Serum 3.5 g/dL (3.2-5.0); Alkaline Phosphatase 86 U/L (45-117); Anion Gap 4 (5-15); BUN 11 mg/dL (7-18); BUN/Creat Ratio 13.9 RATIO (10-20); Calcium,Total 9.3 mg/dL (8.5-10.1); Chloride 106 mmol/L (98-107); Creatinine, Serum 0.79 mg/dL (0.55-1.02); EST Glomerular Filtration Rate 76 mL/min (>60); Est Glom Filt Rate - Afr Amer 92 mL/min (>60); Ferritin 14 ng/mL (8-252); Globulin 3.7 g/dL (2.2-4.2); Glucose 100 mg/dL (74-106); Iron 127 ug/dL (50-170); Magnesium 1.9 mg/dL (1.6-2.6); Potassium 4.2 mmol/L (3.5-5.1); Protein, Total 7.2 g/dL (6.4-8.2); Sodium Level 141 mmol/L (136-145)
== END | disposition home or self-care (01) ==
LOC: LAB 07:52
PROVIDERS: PCP Family Medicine; Referring Provider Family Medicine; Visit Provider Family Medicine
DX: E83.42 Hypomagnesemia (principal); D64.9 Anemia, unspecified; E83.51 Hypocalcemia; R25.2 Cramp and spasm
CPT/HCPCS: 36415; 80053; 82728; 83540; 83735; 83970; 85025

== ENCOUNTER → 2022-08-08 | Outpatient (CLI) | payer MEDICARE, OTHER, SELFPAY ==
--- NOTE | 2022-08-08 13:56 | BI_ITS ---
MAMMOGRAPHY - BILATERAL SCREENING REASON FOR EXAM: Female, 72 years old. Routine annual screening examination. PERTINENT HISTORY: Mother with breast cancer. TECHNIQUE: Digital bilateral breast paul (3D mammographic acquisition) in the CC and MLO projections. 2-D mediolateral oblique (MLO) and craniocaudad (CC) views of both breasts were obtained. CAD: Full Field Digital Mammography with Computer Added Detection was performed. COMPARISON: Comparison is made with prior study dated April 05, 2018 and April 17, 2014. FINDINGS: Breast Composition: The breasts are heterogeneously dense, which may obscure small masses. There are no dominant masses or suspicious calcifications. No other significant abnormalities are identified. There has been no significant change since the prior study. BI/SCRN MAMM (CAD)W/PAUL BILAT IMPRESSION: Stable bilateral screening mammogram. Yearly follow-up mammogram recommended. (A) ASSESSMENT CATEGORY: BIRADS Category 1: Negative. A letter regarding these results will be sent to the patient by the facility within 30 days. Approximately 10% of breast cancers are not detected by mammography. A normal mammogram should not delay biopsy of a clinically suspicious abnormality. [id number] Electronically Signed: Toy Panchal MD at 17:33 EST ,
--- NOTE | 2022-08-08 14:13 | BD_ITS ---
STUDY: DUAL ENERGY X-RAY ABSORPTIOMETRY / DXA REASON FOR EXAM: Female, 72 years old. M810 TECHNIQUE: Bone Mineral Density (BMD) measurements of lumbar spine and bilateral hips were obtained. COMPARISON: None. FINDINGS: Lumbar Spine (L1-L4): g/cm2 (0.974) / T-score (-0.7) / Z-score (1.5) Findings are suggestive of normal bone density with a low fracture risk. Left Femur Total: g/cm2 (0.814) / T-score (-1.0) / Z-score (0.5) Left Femoral Neck: g/cm2 (0.652) / T-score (-1.8) / Z-score (0.1) Right Femur Total: g/cm2 (0.786) / T-score (-1.3) / Z-score (0.3) Right Femoral Neck: g/cm2 (0.624) / T-score (-2.0) / Z-score (-0.2) BD/Dexa Bone Density Study IMPRESSION: The patient is considered osteopenic as outlined below according to World Rigoberto Organization (WHO) criteria with a moderate fracture risk. Reference Information: The T-score is the number of standard deviations above or below the standard which is normal for young adults at their peak bone mineral density. The World Health Organization (WHO) interprets the T-scores as follows: Above -1 Normal bone density Between -1 and -2.5 Osteopenia Equal to / or below -2.5 Osteoporosis As a practical clinical guideline, osteopenia may be graded as follows: Mild -1 through -1.5 Moderate -1.6 through -2.0 Severe -2.1 through -2.4 The Z-score is the number of standard deviations above or below age-matched controls. A Z-score of less than -1.5 would be considered abnormal. References: 1. NIH Osteoporosis and Related Bone Diseases www osteo.org 2. International Society for Clinical Densitometry www iscd.org 3. National Osteoporosis Foundation www nof.org Electronically Signed: Toy Panchal MD at 16:44 EST ,
== END | disposition home or self-care (01) ==
LOC: OPBD 13:55
PROVIDERS: PCP Family Medicine; Referring Provider Family Medicine; Visit Provider Family Medicine
DX: Z12.31 Encounter for screening mammogram for malignant neoplasm of breast (principal); Z80.3 Family history of malignant neoplasm of breast; M81.0 Age-related osteoporosis without current pathological fracture
CPT/HCPCS: 77063; 77067; 77080

== ENCOUNTER → 2023-02-26 | Outpatient (CLI) | payer MEDICARE, OTHER, SELFPAY | END | disposition home or self-care (01) | LOC: LABSPEC 15:31 | PROVIDERS: PCP Family Medicine; Referring Provider Family Medicine; Visit Provider Family Medicine | DX: R30.0 Dysuria (principal) | CPT/HCPCS: 87077; 87086; 87088; 87186 ==

== ENCOUNTER → 2023-03-08 | Outpatient (CLI) | payer MEDICARE, OTHER, SELFPAY | END | disposition home or self-care (01) | LOC: LABSPEC 15:47 | PROVIDERS: PCP Family Medicine; Referring Provider Family Medicine; Visit Provider Family Medicine | DX: R30.0 Dysuria (principal) | CPT/HCPCS: 87086 ==

== ENCOUNTER 2023-04-07 13:54 | Emergency (ER) | payer MEDICARE, OTHER, SELFPAY ==
[2023-04-07 13:57] VITALS: BP 105/69; PULSE 61; RESP 18; TEMP 36.5; O2SAT 98; BMI 29.5
--- NOTE | 2023-04-07 14:15 | RAD_ITS ---
INDICATION: knee pain EXAMINATION/TECHNIQUE: X-RAY - LEFT XR Knee Complete 4 Views or More 4 VIEWS COMPARISON: December 30, 2016 FINDINGS: SOFT TISSUES: There is a joint effusion. No radiopaque foreign body. BONES/JOINTS: No acute fracture or subluxation.. Normal alignment. There are mild degenerative changes of the medial compartment. No sclerotic or destructive changes observed. RAD/Knee 4 or More Views IMPRESSION: Joint effusion. Mild degenerative changes. Electronically Signed: Cee Morris MD at 15:15 EDT ,
--- NOTE | 2023-04-07 14:24 | EDS_ITS ---
<Statement entered by Saira Castorena MD - 04/07/23 15:56> I have personally performed a face to face assessment of the patient and have reviewed the MARY Note. Patient presents secondary to left knee pain. She reports left knee pain over the past couple of days. Mild edema noted. She denies any known injury. She does report some paresthesias, but states she has chronic paresthesias in her legs. Patient sitting upright in bed no acute distress. Head and neck examination unremarkable. Heart is regular rate and rhythm. Lung sounds are clear. Abdomen is soft and nontender. Lower extremity examination reveals mild tenderness along the medial and lateral joint lines of the left knee. Ligaments are tight on testing. Good range of motion. Strong distal pulses noted. Left knee x-ray per my interpretation reveal no acute bony abnormalities. Radiology interpretation is reviewed and feels there is a small joint effusion. Test results are discussed with patient along with continued supportive care at home. HPI History of Present Illness Chief Complaint: Lower Extremity Injury Narrative Narrative: Patient is a 72-year-old female with history of stroke, brain bleed, multiple abdominal surgeries who presents to the emergency department with 3 days of left knee pain. Patient denies any specific injury. Patient states that she has been using heat and Tylenol which does help slightly. She is concerned that she may be having a blood clot. She denies any fever or chills. Denies any history of blood clots, denies any recent travel, recent surgeries. Patient is currently on any blood thinners [facility] Medical History Alcohol use Anemia Arthritis Back pain Brain bleed Duodenal ulcer Easy bruising Former smoker Gastric reflux GERD (gastroesophageal reflux disease) GI bleed History of diverticulitis History of GI bleed History of muscle spasm History of stress test Leg cramps Restless legs SDH (subdural hematoma) Seizures Wears dentures Home Medications pantoprazole 40 mg tablet,delayed release (Protonix) 40 mg PO DAILY 05/09/21 [History Last Taken 05/10/21 04:00] Allergy/AdvReac Type Severity Reaction Status Date / Time Penicillins Allergy Rash Verified 04/07/23 13:57 prednisone Allergy Rash Verified 04/07/23 13:57 ibuprofen AdvReac Other Verified 04/07/23 13:57 Family History Mother Colon cancer Father Colon cancer Aunt Colon cancer Surgical History Hx of colonoscopy Hx of esophagogastroduodenoscopy S/P tubal ligation S/P wrist surgery Status post craniotomy Social History Smoking Status: Former smoker alcohol intake: never ROS ROS ED ROS Narrative Constitutional: Negative for fever, chills, weight loss, weakness Eyes: Negative for vision loss, vision change, double vision ENT: Negative for any sore throat, ear pain, congestion Cardiovascular: Negative for any chest pain, tightness, palpitations Respiratory: Negative for any cough, sputum production, hemoptysis, dyspnea, dyspnea on exertion, orthopnea Gastrointestinal: Negative for any abdominal pain, nausea, vomiting, diarrhea, constipation, blood in stool, blood in vomit : Negative for any urinary frequency, dysuria, retention, blood in urine Muscle skeletal: Negative for any muscle arthralgias, neck pain, back pain. Positive for left knee pain, left knee joint swelling. Neurological: Negative for any headache, syncope, numbness or tingling, dizziness Skin: Negative for any rashes, lumps, itching, abrasions, lacerations Psychiatric: Negative for any depression, anxiety, stress, suicidal ideation, homicidal ideation Hematologic: Negative for any easy bruising, excessive bruising, easy bleeding Allergies: Negative for any eczema, hives, rash EXAM Physical Exam Narrative Exam Narrative: Vital signs reviewed. Extremities: Left knee does show slight edema, pain with flexion extension, patient does have an intact extensor Meggison. +2 pedal pulse. Patient has no calf redness, edema, erythema. No signs of trauma. Neuro: Cranial nerves II through XII intact, no focal neurological deficits. Skin: Clean dry and intact with no rash, purpura, petechiae, vesicles or pustules. Backs/flank: No CVA tenderness, no midline spinal tenderness, no deformity. Psych: Normal mood and affect. No SI, HI or acute psychosis. Const Vital Signs: 04/07/23 13:57 Temperature 97.7 F L Temperature Source Temporal Pulse Rate 61 Respiratory Rate 18 Blood Pressure 105/69 Blood Pressure Mean 81 Pulse Ox 98 Oxygen Delivery Method Room Air Positive well nourished and well developed General Appearance ED: well developed [facility] MDM Radiography Diagnostic Testing: Clinical Impression(s) from Imaging Studies Knee X-Ray 04/07/23 14:15 IMPRESSION: Joint effusion. Mild degenerative changes. Electronically Signed: Cee Morris MD at 15:15 EDT , Treatment and Re-Evaluation :: Patient appears generally well, patient appears nontoxic, vital signs are stable. Patient presents to the emergency department with complaints of left knee pain. Patient states the pain started 3 days ago, no trauma. Physical examination shows some edema, pain with flexion or extension. Differential diagnosis includes arthritis, knee sprain, joint effusion, DVT. I do believe DVT is less likely secondary to there being no risk factors as well as no pain to the calf, erythema. Patient received a 4 view x-ray of the left knee this will be determined by the ER physician. Patient's x-ray of the left knee shows mild degenerative changes, joint effusion. Patient will be treated with an Cheng wrap, instructed to ice, elevate, use Tylenol. At this time, there is no evidence suspect any DVT, there is pat hology to explain the patient's symptoms. Patient instructed to return for any worsening symptoms. At this time, I believe the patient stable for discharge. Patient will return for any worsening symptoms. All questions answered, stable for discharge Discharge Plan Triage Chief Complaint: Lower Extremity Injury ED Midlevel Provider: Jim Robert ED Provider: Saira Castorena Dx/Rx/DC Orders Clinical Impression: Joint effusion of knee, Acute knee pain Instructions: ED Knee Effusion Prescriptions: No Action pantoprazole [Protonix] 40 MG tablet,delayed release (DR/EC) 40 mg PO DAILY Primary Care Provider: Mary Smith Referrals: Mary Smith DO [Primary Care Provider] - Activity Restrictions/Additional Instructions: Please follow-up outpatient. Patient to ice and elevate. You may use Tylenol. Return for worsening pain. Disposition Disposition: Home, Self Care
[2023-04-07 15:58] VITALS: RESP 14
== END 2023-04-07 15:59 | disposition home or self-care (01) ==
PROVIDERS: Emergency Provider Emergency Medicine; PCP Family Medicine; Visit Provider Emergency Medicine
DX: M25.462 Effusion, left knee (principal); M25.562 Pain in left knee; K21.9 Gastro-esophageal reflux disease without esophagitis; Z86.73 Personal history of transient ischemic attack (TIA), and cerebral infarction without residual deficits; Z87.891 Personal history of nicotine dependence
CPT/HCPCS: 73564; 99282; A4216

== ENCOUNTER 2023-06-02 16:18 | Emergency (ER) | payer MEDICARE, OTHER, SELFPAY ==
[2023-06-02 16:20] VITALS: BP 105/53; PULSE 107; RESP 16; TEMP 36.2; O2SAT 93; BMI 29.1
--- NOTE | 2023-06-02 16:30 | EX.ED.DYSGE1 ---
HPI <ALEJANDRO Lim - Last Filed: 06/02/23 18:42> History of Present Illness Chief Complaint: Other, Pain/Inj Narrative Narrative: 73-year-old female states she had a butterscotch milkshake and then started having a lot of diarrhea. Shortly after that around 2 PM she developed diffuse muscle spasms over her entire body. She states her hands were clenching up. She gets muscle spasms frequently 1-2 times a week but this seemed more severe. She has no nausea or vomiting. No chest pain or shortness of breath. PFSH <ALEJANDRO Lim - Last Filed: 06/02/23 18:42> PFSH Medical History Alcohol use Anemia Arthritis Back pain Brain bleed Duodenal ulcer Easy bruising Former smoker Gastric reflux GERD (gastroesophageal reflux disease) GI bleed History of diverticulitis History of GI bleed History of muscle spasm History of stress test Leg cramps Restless legs SDH (subdural hematoma) Seizures Wears dentures Home Medications pantoprazole 40 mg tablet,delayed release (Protonix) 40 mg PO DAILY 05/09/21 [History Last Taken 05/10/21 04:00] Allergy/AdvReac Type Severity Reaction Status Date / Time Penicillins Allergy Rash Verified 06/02/23 16:23 prednisone Allergy Rash Verified 06/02/23 16:23 ibuprofen AdvReac Other Verified 06/02/23 16:23 Family History Mother Colon cancer Father Colon cancer Aunt Colon cancer Surgical History Hx of colonoscopy Hx of esophagogastroduodenoscopy S/P tubal ligation S/P wrist surgery Status post craniotomy Social History Smoking Status: Former smoker alcohol intake: never ROS <ALEJANDRO Lim - Last Filed: 06/02/23 18:42> ROS ED ROS Narrative Constitutional: Negative for fever, chills, malaise. CVS: Negative for palpitations, chest pain, syncope. Respiratory: Negative for shortness of breath, cough. GI: Positive for diarrhea. Negative for abdominal pain, nausea, vomiting, melena, hematochezia. : Negative for dysuria. Neuro: Negative for headache. EXAM <ALEJANDRO Lim - Last Filed: 06/02/23 18:42> Physical Exam Narrative Exam Narrative: CONST: Patient sitting in no acute distress. EYES: Normal inspection. NECK: Normal inspection. RESP: No respiratory distress, CTAB. CVS: Regular rate and rhythm, no murmur, no gallop. ABD: Soft and nontender, no guarding or rebound, nondistended. SKIN: Color normal, no rash, warm, dry, intact. EXTREMITIES: Normal appearance, no pedal edema. NEURO: Oriented x4. PSYCH: Normal affect. Const Vital Signs: 06/02/23 16:20 06/02/23 16:24 06/02/23 17:00 Temperature 97.2 F L Temperature Source Temporal Pulse Rate 107 H 98 Respiratory Rate 16 Respiratory Effort Normal Non-Labored Respiratory Pattern Normal Blood Pressure 105/53 L 103/57 L Blood Pressure Mean 70 72 Pulse Ox 93 Oxygen Delivery Method Room Air <Dr. Javed Gallegos, - Last Filed: 06/02/23 19:29> Physical Exam Const Vital Signs: 06/02/23 16:20 06/02/23 16:24 06/02/23 17:00 Temperature 97.2 F L Temperature Source Temporal Pulse Rate 107 H 98 Respiratory Rate 16 Respiratory Effort Normal Non-Labored Respiratory Pattern Normal Blood Pressure 105/53 L 103/57 L Blood Pressure Mean 70 72 Pulse Ox 93 Oxygen Delivery Method Room Air [facility] <ALEJANDRO Lim - Last Filed: 06/02/23 18:42> [facility] Narrative Medical decision making narrative: History gathered from: Patient and sister Patient had diarrhea and then developed diffuse muscle spasms. She states the bowel movements have slowed down. She has no vomiting or abdominal pain. She appears well and nontoxic. Heart rate was initially 107, BP 105/53, otherwise stable vital signs. Her exam is benign. Labs show white count of 17.7, potassium 2.8, creatinine 1.1 slightly up from baseline 0.8. She was given IV fluids and IV 20 and p.o. 40 mEqs potassium as well as Tylenol for her muscle spasms. I suspect they are related to her electrolyte abnormalities. Due to leukocytosis urine was obtained and there are 5-10 WBCs and leukocyte esterase but is nitrite and bacteria negative. She has no symptoms so plan is to culture. Patient will be discharged home with instructions to see her PCP regarding ongoing muscle spasms and lumbar potassium rechecked. I have personally performed a face to face assessment of the patient and have reviewed the MARY Note. I performed a substantive portion of the visit including all aspects of the following. My ames findings include: History is 73-year-old female presenting with muscle spasms. Patient states that she had a butterscotch milkshake followed by a large diarrheal bowel movement. Shortly after she developed some lightheadedness diaphoresis and felt clammy. She states that she did not develop spasms in her hands and her feet. It is not uncommon for her to have spasms and the exact etiology for the spasms has not been determined. Patient states she is not on a diuretic. She states she has not had much difficulty with potassium in the past. No fevers. No urinary symptoms. No cough rhinorrhea sore throat. Exam is patient appears to have some spasms in the feet holding them in plantarflexion with some toes. Otherwise exam is negative Medical Decison Making potassium returns at 2.8. White count elevated at 17. Urinalysis is shows 5-10 white cells no bacteria negative nitrates. Patient received IV fluids and potassium. Patient will need some potassium IV supplementation over the next several days. Lab Data Attestation: I reviewed the patient's lab results. Labs: Laboratory Results - last 24 hr 06/02/23 06/02/23 16:35 17:30 WBC 17.7 H RBC 4.72 Hgb 14.2 Hct 45.1 MCV 95.6 MCH 30.1 MCHC 31.5 L RDW Std Deviation 49.7 H RDW Coeff of Bria 14.1 Plt Count 227 MPV 10.1 Immature Gran % (Auto) 0.600 Neut % (Auto) 83.0 H Lymph % (Auto) 8.1 L [place] % (Auto) 7.7 Eos % (Auto) 0.2 Baso % (Auto) 0.4 Absolute Neuts (auto) 14.7 H Absolute Lymphs (auto) 1.44 Nucleated RBC % 0 Sodium 145 Potassium 2.8 L Chloride 114 H Carbon Dioxide 22.0 Anion Gap 9 BUN 17 Creatinine 1.10 H Estim Creat Clear Calc 44.96 Est GFR (MDRD) Af Amer 63 Est GFR (MDRD) Non-Af 52 L BUN/Creatinine Ratio 15.5 Glucose 101 Calcium 9.7 Urine Color Yellow Urine Clarity Sl. Cloudy Urine pH 5.0 Ur Specific [place] 1.030 Urine Protein 30 H Urine Glucose (UA) Normal Urine Ketones 5 H Urine Occult Blood 10 H Urine Nitrite Negative Urine Bilirubin Negative Urine Urobilinogen Normal Ur Leukocyte Esterase 500 H Urine RBC 0 SEEN Urine WBC 5-10 SEEN Ur Squamous Epith Cells 0 SEEN Calcium Oxalate Crystal 2+ Urine Bacteria 0 SEEN Hyaline Casts 5-10 SEEN Urine Mucus 0 SEEN <Dr. Javed Gallegos, DO - Last Filed: 06/02/23 19:29> [facility] MDM Narrative Medical decision making narrative: Patient had diarrhea and then developed diffuse muscle spasms. She states the bowel movements have slowed down. She has no vomiting or abdominal pain. She appears well and nontoxic. Heart rate was initially 107, BP 105/53, otherwise stable vital signs. Her exam is benign. Labs show white count of 17.7, potassium 2.8, creatinine 1.1 slightly up from baseline 0.8. She was given IV fluids and IV and p.o. potassium as well as Tylenol for her muscle spasms. I suspect they are related to her electrolyte abnormalities. Due to white count urine was obtained and there are 5-10 WBCs and leukocyte esterase but is nitrite and bacteria negative. She has no symptoms of plan is to culture. I have personally performed a face to face assessment of the patient and have reviewed the MARY Note. I performed a substantive portion of the visit including all aspects of the following. My ames findings include: History is 73-year-old female presenting with muscle spasms. Patient states that she had a butterscotch milkshake followed by a large diarrheal bowel movement. Shortly after she developed some lightheadedness diaphoresis and felt clammy. She states that she did not develop spasms in her hands and her feet. It is not uncommon for her to have spasms and the exact etiology for the spasms has not been determined. Patient states she is not on a diuretic. She states she has not had much difficulty with potassium in the past. No fevers. No urinary symptoms. No cough rhinorrhea sore throat. Exam is patient appears to have some spasms in the feet holding them in plantarflexion with some toes. Otherwise exam is negative Medical Decison Making potassium returns at 2.8. White count elevated at 17. Urinalysis is shows 5-10 white cells no bacteria negative nitrates. Patient received IV fluids and potassium. Patient will need some potassium IV supplementation over the next several days. Lab Data Labs: Laboratory Results - last 24 hr 06/02/23 06/02/23 16:35 17:30 WBC 17.7 H RBC 4.72 Hgb 14.2 Hct 45.1 MCV 95.6 MCH 30.1 MCHC 31.5 L RDW Std Deviation 49.7 H RDW Coeff of Bria 14.1 Plt Count 227 MPV 10.1 Immature Gran % (Auto) 0.600 Neut % (Auto) 83.0 H Lymph % (Auto) 8.1 L [place] % (Auto) 7.7 Eos % (Auto) 0.2 Baso % (Auto) 0.4 Absolute Neuts (auto) 14.7 H Absolute Lymphs (auto) 1.44 Nucleated RBC % 0 Sodium 145 Potassium 2.8 L Chloride 114 H Carbon Dioxide 22.0 Anion Gap 9 BUN 17 Creatinine 1.10 H Estim Creat Clear Calc 44.96 Est GFR (MDRD) Af Amer 63 Est GFR (MDRD) Non-Af 52 L BUN/Creatinine Ratio 15.5 Glucose 101 Calcium 9.7 Urine Color Yellow Urine Clarity Sl. Cloudy Urine pH 5.0 Ur Specific [place] 1.030 Urine Protein 30 H Urine Glucose (UA) Normal Urine Ketones 5 H Urine Occult Blood 10 H Urine Nitrite Negative Urine Bilirubin Negative Urine Urobilinogen Normal Ur Leukocyte Esterase 500 H Urine RBC 0 SEEN Urine WBC 5-10 SEEN Ur Squamous Epith Cells 0 SEEN Calcium Oxalate Crystal 2+ Urine Bacteria 0 SEEN Hyaline Casts 5-10 SEEN Urine Mucus 0 SEEN Discharge Plan Triage Chief Complaint: Other, Pain/Inj ED Midlevel Provider: Mary Ga ED Provider: Javed Gallegos Dx/Rx/DC Orders Clinical Impression: Muscle spasm, Acute hypokalemia, Leukocytosis Instructions: ED Hypokalemia, ED Muscle Spasm Prescriptions: No Action pantoprazole [Protonix] 40 MG tablet,delayed release (DR/EC) 40 mg PO DAILY Primary Care Provider: Mary Smith Referrals: Mary Smith DO [Primary Care Provider] - Activity Restrictions/Additional Instructions: Your potassium was low which was replaced with IV and oral medication. Stay hydrated, drink Gatorade or Powerade which has electrolytes. Follow-up with your primary care doctor. Disposition Disposition: Home, Self Care
[2023-06-02] MEDS: Acetaminophen 500 MG Tablet 1000 MG PO (16:38)
[2023-06-02] MEDS: 0.9% Normal Saline (500mL Bag) 500 ML 999 ML IV (16:44)
[2023-06-02 16:46] LABS: Absolute Lymphocyte Count 1.44 X10^3/uL (0.83-4.51); Absolute Neutrophil Count 14.7 X10^3/uL (2.0-7.7); Basophil# 0.07 X10^3/uL; Basophil% 0.4 % (0-1); Eosinophil# 0.03 X10^3/uL; Eosinophils% 0.2 % (0-5); Hematocrit 45.1 % (37-47); Hemoglobin 14.2 g/dL (12.0-15.0); Lymphocyte # 1.44 X10^3/ul (0.83-4.51); Lymphocyte % 8.1 % (19-41); Mean Corp Hgb Conc 31.5 g/dL (32-36); Mean Corpuscular Hgb 30.1 pg (27.0-32.0); Mean Corpuscular Volume 95.6 fL (81-99); Mean Platelet Vol. 10.1 fl (6.2-12.0); Monocyte# 1.36 X10^3/uL; Monocyte% 7.7 % (0-10); NRBC Flagged by Analyzer 0 % (0-5); Platelet Count 227 K/mm3 (150-450); RBC Distribution Width CV 14.1 % (11.6-14.6); RBC Distribution Width SD 49.7 fl (35.1-43.9); Red Blood Count 4.72 M/mm3 (4.2-5.4); White Blood Count 17.7 K/mm3 (4.4-11.0)
[2023-06-02 17:00] VITALS: BP 103/57; PULSE 98
[2023-06-02 17:23] LABS: Anion Gap 9 (5-15); BUN 17 mg/dL (7-18); BUN/Creat Ratio 15.5 RATIO (10-20); Calcium,Total 9.7 mg/dL (8.5-10.1); Chloride 114 mmol/L (98-107); EST Glomerular Filtration Rate 52 mL/min (>60); Est Glom Filt Rate - Afr Amer 63 mL/min (>60); Estimated Creatinine Clearance 44.96 ml/min; Glucose 101 mg/dL (74-106); Potassium 2.8 mmol/L (3.5-5.1); Sodium Level 145 mmol/L (136-145)
[2023-06-02 17:32] LABS: Bacteria 0 SEEN /hpf (None Seen); Mucous, Urine 0 SEEN /hpf (<or=2+); Red Blood Cells-Urine 0 SEEN /hpf (0-5); Squamous Epithelial Cells - UA 0 SEEN /hpf (5-10)
[2023-06-02 17:34] LABS: Color, Urine Yellow (Yellow); Glucose, Dipstick Normal (Normal); Ketone-Dipstick 5 mg/dl (Negative); Leukocyte Esterase-Dipstick 500 /ul (Negative); Nitrite-Dipstick Negative (Negative); Occult Blood-Urine 10 /ul (Negative); Protein-Dipstick 30 mg/dl (Negative); Urine Bilirubin Dipstick Negative (Negative); Urine Clarity Sl. Cloudy (Clear); Urine Urobilinogen Normal (Normal)
[2023-06-02 17:53] LABS: White Blood Cells 5-10 SEEN /hpf (0-5)
[2023-06-02 17:54] LABS: Calcium Oxalate Crystals Ur 2+ /hpf (<or=2+); Hyaline Cast 5-10 SEEN /lpf (0-5)
[2023-06-02] MEDS: Potassium Chloride 10mEq/100mL 10 MEQ/100 ML IV.SOLN. 100 MEQ IV BOLUS ×2 (18:29→19:35)
[2023-06-02] MEDS: Potassium Chloride Oral Tablet 20 MEQ 40 MEQ PO (18:29)
[2023-06-02 20:32] VITALS: BP 104/74; PULSE 89; RESP 26; O2SAT 97
[2023-06-02 20:52] VITALS: BP 104/74; PULSE 89; RESP 16; O2SAT 99
== END 2023-06-02 21:09 | disposition home or self-care (01) ==
PROVIDERS: Physician Assistant; Emergency Provider Emergency Medicine; PCP Family Medicine; Visit Provider Emergency Medicine
DX: E87.6 Hypokalemia (principal); M62.838 Other muscle spasm; R19.7 Diarrhea, unspecified; D72.829 Elevated white blood cell count, unspecified; Z79.899 Other long term (current) drug therapy; Z87.891 Personal history of nicotine dependence
CPT/HCPCS: 80048; 81001; 85025; 87086; 87088; 96361; 96365; 96366; 99283; J7030; J7040; A4216

== ENCOUNTER → 2023-06-07 | Outpatient (CLI) | payer MEDICARE, OTHER, SELFPAY ==
[2023-06-07 17:59] LABS: Anion Gap 4 (5-15); BUN 15 mg/dL (7-18); BUN/Creat Ratio 21.2 RATIO (10-20); Calcium,Total 8.6 mg/dL (8.5-10.1); Chloride 106 mmol/L (98-107); Creatinine, Serum 0.71 mg/dL (0.55-1.02); EST Glomerular Filtration Rate 86 mL/min (>60); Est Glom Filt Rate - Afr Amer 104 mL/min (>60); Glucose 86 mg/dL (74-106); Magnesium 1.9 mg/dL (1.6-2.6); Potassium 4.3 mmol/L (3.5-5.1); Sodium Level 142 mmol/L (136-145)
== END | disposition home or self-care (01) ==
LOC: BFHLAB 16:17
PROVIDERS: PCP Family Medicine; Visit Provider Family Medicine
DX: E87.6 Hypokalemia (principal)
CPT/HCPCS: 36415; 80048; 83735

== ENCOUNTER 2023-08-05 08:46 | Inpatient (IN) | payer MEDICARE, OTHER, SELFPAY ==
[2023-08-05 08:47] VITALS: BP 134/77; PULSE 116; RESP 16; TEMP 36.5; O2SAT 95; BMI 29.4
--- NOTE | 2023-08-05 09:05 | EDS_ITS ---
HPI HPI - GI History of Present Illness Chief Complaint: Abd Pain Detail of Chief Complaint: Upper abdominal pain Informant: patient and friend Abdominal Pain/Flank Pain Onset: Days (Onset Sunday night while sitting.) Context: Sudden Onset Timing: Continuous and Waxes and wanes Quality: Aching and Cramping Location: RUQ and LUQ Current Severity: Mild Maximum Severity: Moderate Worsened by: Nothing Relieved by: Nothing Nausea/Vomiting/Emesis GI Symptom: Positive for Nausea and Vomiting (Patient reports vomiting several times. She has not vomited today.) Onset: Days Diarrhea/Melena/Hematochezia GI Symptom: Positive for - (Patient reports small hard stools for several weeks.); Negative for Diarrhea, Melena or Hematochezia Associated Symptoms Associated Symptoms: Positive for - (Patient reports dark-colored urine.); Negative for Dysuria, Frequency, Hematuria or Urgency LMP: Status post tubal ligation and postmenopausal Narrative Narrative: Patient is a 73-year-old woman with history of cholelithiasis and choledocholithiasis who has been seen by Dr. Gray. She presents with upper abdominal pain that started Sunday evening while sitting. Nothing makes the pain better or worse. She does endorse nausea and vomiting. She denies coffee-ground emesis or blood in her emesis. She denies black or maroon-colored stool. She does endorse smaller size stool and harder stool over the past several weeks. She states she asked her doctor regarding endoscopy. She does have a history of fatty liver. She states she occasionally will have a drink. She is a former smoker. She denies fever, chills or night sweats. She denies weight loss. She denies headache, visual, ocular auditory symptoms. She denies cardiac or respiratory symptoms. She denies dysuria, frequency or hematuria. She states her color is dark. When asked to describe the color it is [place]. She was unaware that her skin has a yellow appearance and she has scleral icterus. She states she took her stomach medicine however she vomited shortly after taking it yesterday. She has not taken anything today. She has had surgery in the past for perforated ulcer and had a B1 repair. Dr. Gray's H&P in 2020. Prior similar symptoms: No Recent Illness/Hospitalization: No [facility] Medical History Alcohol use Anemia Arthritis Back pain Brain bleed Duodenal ulcer Easy bruising Former smoker Gastric reflux GERD (gastroesophageal reflux disease) GI bleed History of diverticulitis History of GI bleed History of muscle spasm History of stress test Leg cramps Restless legs SDH (subdural hematoma) Seizures Wears dentures Home Medications pantoprazole 40 mg tablet,delayed release (Protonix) 40 mg PO DAILY 05/09/21 [History Last Taken 05/10/21 04:00] Allergy/AdvReac Type Severity Reaction Status Date / Time Penicillins Allergy Rash Verified 08/05/23 08:48 prednisone Allergy Rash Verified 08/05/23 08:48 ibuprofen AdvReac Other Verified 08/05/23 08:48 Family History Mother Colon cancer Father Colon cancer Aunt Colon cancer Surgical History Hx of colonoscopy Hx of esophagogastroduodenoscopy S/P tubal ligation S/P wrist surgery Status post craniotomy Social History Smoking Status: Former smoker alcohol intake: never ROS ROS ED Constitutional Constitutional ED: Denies chills, fever(s), subjective, sweats or weight loss ENT ENT ED: Denies ear pain or rhinorrhea Cardiovascular Cardiovascular: Denies chest pain or palpitations Respiratory/Chest Respiratory/Chest: Denies cough, dyspnea or dyspnea on exertion Gastrointestinal Gastrointestinal: Reports abdominal pain, nausea, vomiting and other Details: And review HPI please ; Denies constipation, diarrhea or melena Genitourinary Genitourinary ED: Denies dysuria, hematuria or urinary frequency Musculoskeletal Musculoskeletal: Denies arthralgias, back pain, myalgias or neck pain Integumentary Denies rash Neurologic Neurologic: Reports weakness; Denies headache(s) or paresthesias Hematologic/Lymphatic Hematologic/Lymphatic: Reports easy bruising; Denies easy bleeding Allergic/Immunologic Allergic/Immunologic ED: Denies mouth swelling or tongue swelling EXAM Physical Exam Const Vital Signs: 08/05/23 08:47 08/05/23 11:00 08/05/23 12:24 Temperature 97.7 F L Temperature Source Temporal Pulse Rate 116 H 101 H Respiratory Rate 16 16 Blood Pressure 134/77 H 124/60 H Blood Pressure Mean 96 81 Pulse Ox 95 Oxygen Delivery Method Room Air Positive well nourished, well developed and obese Constitutional Narrative: Patient appears ill. Patient is jaundiced. General Appearance ED: well developed; Negative for NAD Nutritional Appearance: obese HEENT Reports TM's clear and dry mucous membranes normocephalic and atraumatic Tympanic Membrane ED: Yes TM's clear Mouth ED: Yes dry mucous membranes Mouth: dry mucous membranes Eyes PERRL and EOMs intact bilaterally General Eye ED: Yes scleral icterus; Negative for pale conjunctiva Neck no lymphadenopathy, supple and no JVD Resp normal respiratory effort and clear to auscultation bilaterally Cardio regular rhythm, S1 normal heart sound, S2 normal heart sound and no murmurs Rate: tachycardic GI no masses; Negative for non-tender or non-distended GI Narrative: There is slight tympany to percussion upper quadrants. Inspection: abdominal distention Auscultation: hypoactive bowel sounds Palpation: soft, tender epigastric, LUQ and RUQ and guarding RUQ; Negative for rigid, hepatomegaly, splenomegaly, hernia, mass, pulsatile mass or rebound tenderness present Back/Spine no CVA tenderness Extremity full ROM General Extremety ED: Negative for edema or tenderness General Extremity: Negative for edema Neuro CN's II-XII intact bilaterally, moves all extremities and no sensory deficits noted Sensorium / Orientation: alert Psych mental status grossly normal and thought process normal Skin no wounds General Skin Exam: jaundice Lesions: no lesions Rashes: no rashes MDM MDM MDM Narrative Medical decision making narrative: With change in caliber and consistency of stool 1 needs entertain possibility constipation versus malignancy. The patient have a history of cholelithiasis and choledocholithiasis need to consider possibility of obstructing stone versus malignancy with regards to the right upper quadrant pain and jaundice. This may also represent DURAN's. Will obtain UA to assess for blood infection. CBC to assess white count, platelet count as well as differential. Liver profile lipase to evaluate the right upper and left upper quadrant since pancreatitis also needs to be considered. Based on laboratory results will determine the patient should be evaluated by ultrasound versus CT. She was medicated with Zofran for nausea and morphine for her pain. Prior records reviewed. She has had 2 ER visits in 2023 for subdural hematoma requiring transfer. Office notes by Dr. Gray that were reviewed. Outside imaged documents were also reviewed and related to patient's history of cholelithiasis. History & Record Review Discussion w/independent historian: Family Additional record(s) reviewed:: Prior inpatient record, Prior outpatient record, Prior ED visit and Prior labs Lab Data Attestation: I reviewed the patient's lab results. Lab results narrative: White count is elevated with shift. Competence of metabolic panel is remarkable for glucose of 123 with a normal CO2 anion gap. BUN/creatinine ratio is slightly elevated 22-1. Patient's total bili is elevated at 7.8 with direct of 5.45. This is abnormal compared to prior. AST and ALT are elevated at 93 and 223 respectively. Alkaline phosphatase is elevated 172. Lipase is normal. Urine reveals nitrites and bacteria. Patient does have pyuria. Will obtain urine culture. Labs: Laboratory Results - last 24 hr 08/05/23 08/05/23 09:13 09:18 WBC 15.4 H RBC 4.76 Hgb 14.4 Hct 43.2 MCV 90.8 MCH 30.3 MCHC 33.3 RDW Std Deviation 45.4 H RDW Coeff of Bria 13.5 Plt Count 78 L MPV 11.5 Immature Gran % (Auto) 0.800 Neut % (Auto) 89.9 H Lymph % (Auto) 3.6 L [place] % (Auto) 5.4 Eos % (Auto) 0.0 Baso % (Auto) 0.3 Absolute Neuts (auto) 13.9 H Absolute Lymphs (auto) 0.55 L Nucleated RBC % 0 Differential Comment SCANNED Platelet Estimate MOD DEC Sodium 134 L Potassium 3.7 Chloride 101 Carbon Dioxide 25.0 Anion Gap 8 BUN 18 Creatinine 0.80 Estim Creat Clear Calc 71.33 Est GFR (MDRD) Af Amer 90 Est GFR (MDRD) Non-Af 75 BUN/Creatinine Ratio 22.4 H Glucose 123 H Calcium 8.7 Total Bilirubin 7.80 H Direct Bilirubin 5.45 H AST 93 H ALT 223 H Alkaline Phosphatase 172 H Total Protein 6.3 L Albumin 2.7 L Globulin 3.6 Lipase 16 Urine Color Yellow Urine Clarity Clear Urine pH 6.0 Ur Specific [place] 1.020 Urine Protein 100 H Urine Glucose (UA) Normal Urine Ketones 5 H Urine Occult Blood 250 H Urine Nitrite Positive H Urine Bilirubin 6 H Urine Urobilinogen 8 H Ur Leukocyte Esterase 500 H Urine RBC 5-10 SEEN Urine WBC 10-25 SEEN Ur Squamous Epith Cells 0-5 SEEN Urine Bacteria 1+ Urine Mucus 0 SEEN Radiography Diagnostic Testing: Clinical Impression(s) from Imaging Studies Abdomen/Pelvis CT 08/05/23 10:39 IMPRESSION: 1. Inflammatory stranding is present in the gallbladder fossa extending into the right subhepatic space down to the right paracolic gutter most likely due to an acute inflammatory process either involving the liver parenchyma or the bile ducts. No visualized liver abscess or radiopaque stone in the CBD, however a few foci of air are seen in the distal aspect of the CBD near the ampulla, presumed to be related to prior surgery or reflect some the adjacent bowel. The air in the CBD is less likely related to a gas forming infectious process, however clinical correlation is recommended. 2. Mild inflammatory stranding and trace fluid is also present near the tail of the pancreas and splenic hilum which could be related to acute pancreatitis. Electronically Signed: Selvin Chamberlain MD at 12:34 EST Reading Location ID and State: [facility] / [place] , Service support , Images were reviewed. Dr. Gray was contacted and went over CAT scan results. Would like patient admitted to medical service with. Would like patient to have only clear liquids. Plan MRCP tomorrow morning. Management Discussion w/another healthcare provider: Hospitalist (Hospitalist paged for admission with consult to surgery. Dr. Carballo called the surgeon prior to contacting me. Full admit MedSurg) and Legislators (Contacted surgeon on-call, Dr. Gray. Recommended CT over ultrasound. CT with IV contrast was ordered.) Treatment and Re-Evaluation :: Patient was started on meropenem which will cover GI as well as organisms. Since there is evidence of pyuria bacteria with positive nitrites on urinalysis urine culture was sent. Discharge Plan Dx/Rx/DC Orders Clinical Impression: Abdominal pain, acute, right upper quadrant, Urinary tract bacterial infections, Neutrophilic leukocytosis, Jaundice, Sinus tachycardia, Acute prerenal azotemia Disposition [facility]: [facility]
[2023-08-05] MEDS: 0.9% Normal Saline (1000mL) 1,000 ML 125 ML IV ×2 (09:20→18:21)
[2023-08-05] MEDS: Morphine 4 MG/ML Syringe IV (09:20)
[2023-08-05] MEDS: Ondansetron 4 MG/2 ML Vial IV (09:20)
[2023-08-05 09:23] LABS: Mucous, Urine 0 SEEN /hpf (<or=2+)
[2023-08-05 09:28] LABS: Color, Urine Yellow (Yellow); Glucose, Dipstick Normal (Normal); Ketone-Dipstick 5 mg/dl (Negative); Leukocyte Esterase-Dipstick 500 /ul (Negative); Nitrite-Dipstick Positive (Negative); Occult Blood-Urine 250 /ul (Negative); Protein-Dipstick 100 mg/dl (Negative); Urine Clarity Clear (Clear); Urine Urobilinogen 8 mg/dl (Normal)
[2023-08-05 09:41] LABS: Urine Bilirubin Dipstick 6 mg/dL (Negative)
[2023-08-05 09:43] LABS: AST(SGOT) 93 U/L (15-37); Alanine Aminotransfer ALT/SGPT 223 U/L (13-56); Albumin, Serum 2.7 g/dL (3.2-5.0); Alkaline Phosphatase 172 U/L (45-117); Anion Gap 8 (5-15); BUN 18 mg/dL (7-18); BUN/Creat Ratio 22.4 RATIO (10-20); Bilirubin, Direct 5.45 mg/dL (0.00-0.30); Calcium,Total 8.7 mg/dL (8.5-10.1); Chloride 101 mmol/L (98-107); EST Glomerular Filtration Rate 75 mL/min (>60); Est Glom Filt Rate - Afr Amer 90 mL/min (>60); Estimated Creatinine Clearance 71.33 ml/min; Globulin 3.6 g/dL (2.2-4.2); Glucose 123 mg/dL (74-106); Lipase 16 U/L (13-75); Potassium 3.7 mmol/L (3.5-5.1); Protein, Total 6.3 g/dL (6.4-8.2); Sodium Level 134 mmol/L (136-145)
[2023-08-05 09:45] LABS: Bacteria 1+ /hpf (None Seen); Red Blood Cells-Urine 5-10 SEEN /hpf (0-5); Squamous Epithelial Cells - UA 0-5 SEEN /hpf (5-10); White Blood Cells 10-25 SEEN /hpf (0-5)
[2023-08-05 10:16] LABS: Absolute Lymphocyte Count 0.55 X10^3/uL (0.83-4.51); Absolute Neutrophil Count 13.9 X10^3/uL (2.0-7.7); Basophil# 0.04 X10^3/uL; Basophil% 0.3 % (0-1); Hematocrit 43.2 % (37-47); Hemoglobin 14.4 g/dL (12.0-15.0); Lymphocyte # 0.55 X10^3/ul (0.83-4.51); Lymphocyte % 3.6 % (19-41); Mean Corp Hgb Conc 33.3 g/dL (32-36); Mean Corpuscular Hgb 30.3 pg (27.0-32.0); Mean Corpuscular Volume 90.8 fL (81-99); Mean Platelet Vol. 11.5 fl (6.2-12.0); Monocyte# 0.83 X10^3/uL; Monocyte% 5.4 % (0-10); NRBC Flagged by Analyzer 0 % (0-5); Neutrophil % 89.9 % (47-70); POSITIVE COUNT YES; POSITIVE DIFFERENTIAL YES; Platelet Count 78 K/mm3 (150-450); RBC Distribution Width CV 13.5 % (11.6-14.6); RBC Distribution Width SD 45.4 fl (35.1-43.9); Red Blood Count 4.76 M/mm3 (4.2-5.4); White Blood Count 15.4 K/mm3 (4.4-11.0)
[2023-08-05 10:19] LABS: Differential Indicated SCAN CRITERIA MET
[2023-08-05 10:34] LABS: Differential Comment SCANNED; Platelet Estimate MOD DEC (ADEQ)
--- NOTE | 2023-08-05 10:39 | CT_ITS ---
STUDY: CT ABDOMEN AND PELVIS WITH CONTRAST REASON FOR EXAM: Female, 73 years old. Pain, jaundice, leukocytosis status postcholecyste Technologist Notes PT STATES ABD PAIN SINCE SUNDAY WITH VOMITING AND BODY ACHES HX BOWEL SURGERY, GALLBLADDER SURGERY RADIATION DOSAGE (If Supplied By Facility): CTDIvol = ( 17.83 ) mGy, DLP = ( 1185.62 ) mGycm TECHNIQUE: Transaxial images were obtained from the dome of the diaphragm to the symphysis pubis without oral contrast. ml of 100mL Isovue-370 contrast was administered. Sagittal and coronal images were reconstructed. Individualized dose optimization techniques were used for this CT. COMPARISON: MRCP/MRI of the abdomen dated July 17, 2017 CT of abdomen dated June 18, 2009. FINDINGS: There are chronic interstitial fibrotic changes of the lung bases. Minimal basilar atelectasis is present. Normal liver. There are surgical clips in the gallbladder fossa consistent with a prior cholecystectomy. Mild intrahepatic biliary ductal dilatation and CBD dilatation is present most likely post cholecystectomy related. Normal spleen. Inflammatory stranding is present in the gallbladder fossa extending into the right subhepatic space down to the right paracolic gutter most likely due to an acute inflammatory process either involving the liver parenchyma or the bile ducts. No visualized liver abscess or radiopaque stone in the CBD, however a few foci of air are seen in the distal aspect of the CBD near the ampulla, presumed to be related to prior surgery or reflect some the adjacent bowel. The air in the CBD is less likely related to a gas forming infectious process, however clinical correlation is recommended. Mild inflammatory stranding and trace fluid is also present near the tail of the pancreas and splenic hilum which could be related to acute pancreatitis. No pancreatic mass or cyst is present. Normal bilateral adrenal glands. Normal right kidney. An 8 mm calyceal stone is present in the lower pole of the left kidney. Multiple parapelvic and a few parenchymal cysts of the left kidney are also present which do not require any additional imaging. A few reactive central abdominal mesenteric root and periaortic lymph nodes are present, likely due to chronic inflammation. Prior gastric bypass. No bowel dilatation or obstruction is present. No visualized abscess or free air. Normal small intestine. There are multiple colonic diverticula consistent with diverticulosis. The appendix is visualized and appears normal. Normal abdominal aorta. Normal inferior vena cava. Normal retroperitoneum. Normal urinary bladder. Normal visualized uterus. Bilateral adnexal clips are present. Moderate-sized fat-containing umbilical/incisional postsurgical hernia containing mesenteric fat and portions of the mid jejunum without incarceration. There are diffuse degenerative changes of the visualized lumbar spine. CT/Abdomen/Pelvis W IV Cont ONLY IMPRESSION: 1. Inflammatory stranding is present in the gallbladder fossa extending into the right subhepatic space down to the right paracolic gutter most likely due to an acute inflammatory process either involving the liver parenchyma or the bile ducts. No visualized liver abscess or radiopaque stone in the CBD, however a few foci of air are seen in the distal aspect of the CBD near the ampulla, presumed to be related to prior surgery or reflect some the adjacent bowel. The air in the CBD is less likely related to a gas forming infectious process, however clinical correlation is recommended. 2. Mild inflammatory stranding and trace fluid is also present near the tail of the pancreas and splenic hilum which could be related to acute pancreatitis. Electronically Signed: Selvin Chamberlain MD at 12:34 EST ,
[2023-08-05 11:00] VITALS: RESP 16
[2023-08-05 12:24] VITALS: BP 124/60; PULSE 101
[2023-08-05] MEDS: Meropenem 1 GM in 0.9% Normal Saline (100mL MB+) 100 ML IV ×2 (13:29→20:41)
[2023-08-05 13:30] VITALS: BP 126/61; PULSE 104; RESP 18; TEMP 36.6; O2SAT 96
--- NOTE | 2023-08-05 13:32 | HP.PCM.HOS_ITS ---
HPI - General General Date of Admission: 08/05/23 Date of Service: 08/05/23 Chief Complaint: abdominal pain. HPI Narrative CARLA HARRISON, is a 73 F who presents with abdominal pain. Patient states that she has been having abdominal pain across her abdomen since Sunday. Pain was not very intense on Sunday, about a 6 out of 10. Today it has been more or less constant but slightly improved around 5 out of 10. Has had similar abdominal pain in the past when she actually ingested a breadloaf tie that required bowel resection. Family noted that she had was becoming jaundiced during this time, too. Patient was brought to emergency room and was noted to have a white count of 15.4, total bilirubin 7.8, direct bilirubin of 5.5. Patient is status postcholecystectomy. She did undergo a CAT scan that showed inflammatory stranding at the gallbladder fossa extending into the right subhepatic space down to the right paracolic gutter most likely due to acute inflammatory process either involving liver parenchyma or the bile ducts. Noted a few foci of air seen at distal aspect of the common bile duct near the ampulla. [facility] Medical History Alcohol use Anemia Arthritis Back pain Brain bleed Duodenal ulcer Easy bruising Former smoker Gastric reflux GERD (gastroesophageal reflux disease) GI bleed History of diverticulitis History of GI bleed History of muscle spasm History of stress test Leg cramps Restless legs SDH (subdural hematoma) Seizures Wears dentures Home Medications pantoprazole 40 mg tablet,delayed release (Protonix) 40 mg PO DAILY 05/09/21 [History Last Taken 05/10/21 04:00] ascorbate calcium (vitamin C) 500 mg tablet 1 g PO DAILY SUPPLEMENT 08/05/23 [History Last Taken Unknown] cyanocobalamin (vitamin B-12) 1 tab PO DAILY 08/05/23 [History Last Taken U nknown] potassium gluconate 600 mg (99 mg) tablet 600 mg PO DAILY SUPPLEMENT 08/05/23 [History Last Taken Unknown] Allergy/AdvReac Type Severity Reaction Status Date / Time Penicillins Allergy Rash Verified 08/05/23 08:48 prednisone Allergy Rash Verified 08/05/23 08:48 ibuprofen AdvReac Other Verified 08/05/23 08:48 Family History (Updated 08/05/23 @ 13:[address] Bob Antunez DO) Mother Colon cancer Father Colon cancer Aunt Colon cancer Other Heart disease Surgical History Hx of colonoscopy Hx of esophagogastroduodenoscopy S/P tubal ligation S/P wrist surgery Status post craniotomy Social History Smoking Status: Former smoker alcohol intake: never ROS ROS Narrative Nausea and vomiting. No diarrhea. Fever and chills at home. No appetite has not eaten for the past couple days. All review of systems were negative except as mentioned above in the history of present illness and the other review of systems. Vital Signs Vital Signs Vital Signs: 08/05/23 08:47 08/05/23 11:00 08/05/23 12:24 Temperature 36.5 C L Temperature Source Temporal Pulse Rate 116 H 101 H Respiratory Rate 16 16 Blood Pressure 134/77 H 124/60 H Blood Pressure Mean 96 81 Pulse Ox 95 Oxygen Delivery Method Room Air 08/05/23 13:30 Temperature 36.6 C Temperature Source Pulse Rate 104 H Respiratory Rate 18 Blood Pressure 126/61 H Blood Pressure Mean 82 Pulse Ox 96 Oxygen Delivery Method Weight Weight: 85.304 kg Body Mass Index (BMI) 29.4 Physical Exam Const alert Constitutional Narrative: Jaundiced. Afebrile. Nontoxic. General Appearance: cooperative HEENT normocephalic HEENT Narrative: Dentures in place. Eyes Eyes Narrative: Icterus Resp normal respiratory effort, no retractions, no use of accessory muscles and clear to auscultation bilaterally Cardio regular rate, regular rhythm, S1 normal heart sound and S2 normal heart sound GI normal to inspection, nondistended, normoactive bowel sounds, soft to palpation and non-distended GI Narrative: Right upper quadrant abdominal pain Extremity normal to inspection and no clubbing, cyanosis or edema Neuro moves all extremities Sensorium / Orientation: awake and alert Speech: speech normal Results Lab / Micro Data Attestation: I reviewed the patient's lab results. 08/05/23 09:18 08/05/23 09:18 Labs: Laboratory Results - last 24 hr 08/05/23 09:13: Urine Color Yellow, Urine Clarity Clear, Urine pH 6.0, Ur Specific [place] 1.020, Urine Protein 100 H, Urine Glucose (UA) Normal, Urine Ketones 5 H, Urine Occult Blood 250 H, Urine Nitrite Positive H, Urine Bilirubin 6 H, Urine Urobilinogen 8 H, Ur Leukocyte Esterase 500 H, Urine RBC 5-10 SEEN, Urine WBC 10-25 SEEN, Ur Squamous Epith Cells 0-5 SEEN, Urine Bacteria 1+, Urine Mucus 0 SEEN 08/05/23 09:18: WBC 15.4 H, RBC 4.76, Hgb 14.4, Hct 43.2, MCV 90.8, MCH 30.3, MCHC 33.3, RDW Std Deviation 45.4 H, RDW Coeff of Bria 13.5, Plt Count 78 L, MPV 11.5, Immature Gran % (Auto) 0.800, Neut % (Auto) 89.9 H, Lymph % (Auto) 3.6 L, Dane % (Auto) 5.4, Eos % (Auto) 0.0, Baso % (Auto) 0.3, Absolute Neuts (auto) 13.9 H, Absolute Lymphs (auto) 0.55 L, Nucleated RBC % 0, Differential Comment SCANNED, Platelet Estimate MOD DEC, Sodium 134 L, Potassium 3.7, Chloride 101, Carbon Dioxide 25.0, Anion Gap 8, BUN 18, Creatinine 0.80, Estim Creat Clear Calc 71.33, Est GFR (MDRD) Af Amer 90, Est GFR (MDRD) Non-Af 75, BUN/Creatinine Ratio 22.4 H, Glucose 123 H, Calcium 8.7, Total Bilirubin 7.80 H, Direct Bili lora 5.45 H, AST 93 H, ALT 223 H, Alkaline Phosphatase 172 H, Total Protein 6.3 L, Albumin 2.7 L, Globulin 3.6, Lipase 16 Imaging Radiology Impression Abdomen/Pelvis CT 08/05/23 10:39 IMPRESSION: 1. Inflammatory stranding is present in the gallbladder fossa extending into the right subhepatic space down to the right paracolic gutter most likely due to an acute inflammatory process either involving the liver parenchyma or the bile ducts. No visualized liver abscess or radiopaque stone in the CBD, however a few foci of air are seen in the distal aspect of the CBD near the ampulla, presumed to be related to prior surgery or reflect some the adjacent bowel. The air in the CBD is less likely related to a gas forming infectious process, however clinical correlation is recommended. 2. Mild inflammatory stranding and trace fluid is also present near the tail of the pancreas and splenic hilum which could be related to acute pancreatitis. Electronically Signed: Selvin Chamberlain MD at 12:34 EST Reading Location ID and State: [facility] / [place] , Service support , Assessment & Plan Assessment/Plan (1) Cholangitis: PLAN: Plan Acute cholangitis, suspected * Onset was August 02 * CAT scan findings as above. Questionable foci of air is nonspecific at this time. * Discussed with Dr. Gray, he recommends an MRCP to better characterize what is going on in the bile ducts. Patient may need an ERCP but will be dependent on the MRCP findings. He is okay with patient be on clear diet. * Antibiotics with meropenem. Patient has penicillin allergy. Initiated in the emergency room and will continue on the floor. Transaminitis * Suspect due to the infectious process that is either involving or adjacent to the liver. * Monitor Chronic conditions * History of epidural hematomas: Patient has had numerous surgeries over at [facility] for this. Avoid blood thinners as able. VTE prophylaxis: SCDs. Avoid chemical prophylaxis given the patient's history of epidural hematomas. CODE STATUS: Addressed with the patient. Patient was to be full code. Charges/Coding Visit Charges Inpatient E&M: 18237 Init Hosp L3
[2023-08-05 14:41] VITALS: BP 126/56; PULSE 104; RESP 16; TEMP 36.2; O2SAT 91; BMI 29.1
[2023-08-05] MEDS: Acetaminophen 325 MG Tablet 650 MG PO (18:23)
[2023-08-05 19:51] VITALS: BP 126/72; PULSE 107; RESP 15; TEMP 36.8; O2SAT 95
[2023-08-06] MEDS: 0.9% Normal Saline (1000mL) 1,000 ML 125 ML IV ×3 (02:02→20:23)
[2023-08-06 02:09] VITALS: BP 112/56; PULSE 96; RESP 16; TEMP 36.8; O2SAT 95
[2023-08-06] MEDS: Acetaminophen 325 MG Tablet 650 MG PO (05:21)
[2023-08-06] MEDS: Meropenem 1 GM in 0.9% Normal Saline (100mL MB+) 100 ML IV ×3 (05:21→20:28)
[2023-08-06 06:22] LABS: Absolute Lymphocyte Count 0.48 X10^3/uL (0.83-4.51); Absolute Neutrophil Count 10.1 X10^3/uL (2.0-7.7); Basophil# 0.05 X10^3/uL; Basophil% 0.4 % (0-1); Eosinophil# 0.01 X10^3/uL; Eosinophils% 0.1 % (0-5); Hematocrit 41.7 % (37-47); Hemoglobin 13.5 g/dL (12.0-15.0); Lymphocyte # 0.48 X10^3/ul (0.83-4.51); Lymphocyte % 4.1 % (19-41); Mean Corp Hgb Conc 32.4 g/dL (32-36); Mean Corpuscular Hgb 30.1 pg (27.0-32.0); Mean Corpuscular Volume 92.9 fL (81-99); Mean Platelet Vol. 11.5 fl (6.2-12.0); Monocyte# 1.06 X10^3/uL; NRBC Flagged by Analyzer 0 % (0-5); Neutrophil % 85.8 % (47-70); POSITIVE COUNT YES; POSITIVE DIFFERENTIAL YES; Platelet Count 58 K/mm3 (150-450); RBC Distribution Width CV 13.6 % (11.6-14.6); RBC Distribution Width SD 46.5 fl (35.1-43.9); Red Blood Count 4.49 M/mm3 (4.2-5.4); White Blood Count 11.8 K/mm3 (4.4-11.0)
[2023-08-06 06:43] LABS: ALB/GLOB Ratio 0.5 RATIO (0.9-2.4); AST(SGOT) 67 U/L (15-37); Alanine Aminotransfer ALT/SGPT 144 U/L (13-56); Albumin, Serum 1.9 g/dL (3.2-5.0); Alkaline Phosphatase 172 U/L (45-117); Anion Gap 7 (5-15); BUN 13 mg/dL (7-18); BUN/Creat Ratio 20.5 RATIO (10-20); Chloride 107 mmol/L (98-107); Creatinine, Serum 0.64 mg/dL (0.55-1.02); EST Glomerular Filtration Rate 98 mL/min (>60); Est Glom Filt Rate - Afr Amer 118 mL/min (>60); Estimated Creatinine Clearance 70.96 ml/min; Globulin 3.8 g/dL (2.2-4.2); Glucose 113 mg/dL (74-106); Potassium 4.1 mmol/L (3.5-5.1); Protein, Total 5.7 g/dL (6.4-8.2); Sodium Level 133 mmol/L (136-145)
[2023-08-06 06:59] LABS: Differential Indicated SCAN CRITERIA MET
[2023-08-06 07:57] VITALS: BP 120/71; PULSE 99; RESP 18; TEMP 36.7; O2SAT 94
[2023-08-06 08:23] LABS: Platelet Estimate MOD DEC (ADEQ)
--- NOTE | 2023-08-06 08:29 | PCM.PN.HOSP ---
Reason for Visit Reason for Visit: Diagnoses Other cholangitis (08/05/23) Subjective Subjective Patient is a 73-year-old lady who presented with abdominal pain and assessment of acute cholangitis made admitted to regular nursing floor for further management. Objective Data Objective Data Vital Signs: Vital Signs Temp Pulse Resp BP Pulse Ox O2 Del Method 98.1 F 99 18 120/71 94 Room Air 08/06/23 07:57 08/06/23 07:57 08/06/23 07:57 08/06/23 07:57 08/06/23 07:57 08/06/23 07:57 Oxygen Delivery Method Room Air Weight: 84.397 kg Body Mass Index (BMI) 29.1 Intake & Output: Intake and Output for Last 24 Hours 08/04/23 08/05/23 08/06/23 23:59 23:59 23:59 Intake Total 1120 / 1120 1080.42 / 1080.42 Output Total 400 / 400 Balance 1120 / 1120 680.42 / 680.42 Lab / Micro Data 08/06/23 05:30 08/06/23 05:23 Labs: Laboratory Results - last 24 hr 08/05/23 09:13: Urine Color Yellow, Urine Clarity Clear, Urine pH 6.0, Ur Specific [place] 1.020, Urine Protein 100 H, Urine Glucose (UA) Normal, Urine Ketones 5 H, Urine Occult Blood 250 H, Urine Nitrite Positive H, Urine Bilirubin 6 H, Urine Urobilinogen 8 H, Ur Leukocyte Esterase 500 H, Urine RBC 5-10 SEEN, Urine WBC 10-25 SEEN, Ur Squamous Epith Cells 0-5 SEEN, Urine Bacteria 1+, Urine Mucus 0 SEEN 08/05/23 09:18: WBC 15.4 H, RBC 4.76, Hgb 14.4, Hct 43.2, MCV 90.8, MCH 30.3, MCHC 33.3, RDW Std Deviation 45.4 H, RDW Coeff of Bria 13.5, Plt Count 78 L, MPV 11.5, Immature Gran % (Auto) 0.800, Neut % (Auto) 89.9 H, Lymph % (Auto) 3.6 L, [place] % (Auto) 5.4, Eos % (Auto) 0.0, Baso % (Auto) 0.3, Absolute Neuts (auto) 13.9 H, Absolute Lymphs (auto) 0.55 L, Nucleated RBC % 0, Differential Comment SCANNED, Platelet Estimate MOD DEC, Sodium 134 L, Potassium 3.7, Chloride 101, Carbon Dioxide 25.0, Anion Gap 8, BUN 18, Creatinine 0.80, Estim Creat Clear Calc 71.33, Est GFR (MDRD) Af Amer 90, Est GFR (MDRD) Non-Af 75, BUN/Creatinine Ratio 22.4 H, Glucose 123 H, Calcium 8.7, Total Bilirubin 7.80 H, Direct Bilirubin 5.45 H, AST 93 H, ALT 223 H, Alkaline Phosphatase 172 H, Total Protein 6.3 L, Albumin 2.7 L, Globulin 3.6, Lipase 16 08/06/23 05:23: Sodium 133 L, Potassium 4.1, Chloride 107, Carbon Dioxide 19.0 L, Anion Gap 7, BUN 13, Creatinine 0.64, Estim Creat Clear Calc 70.96, Est GFR (MDRD) Af Amer 118, Est GFR (MDRD) Non-Af 98, BUN/Creatinine Ratio 20.5 H, Glucose 113 H, Calcium 8.0 L, Total Bilirubin 11.00 H, AST 67 H, ALT 144 H, Alkaline Phosphatase 172 H, Total Protein 5.7 L, Albumin 1.9 L, Globulin 3.8, Albumin/Globulin Ratio 0.5 L 08/06/23 05:30: WBC 11.8 H, RBC 4.49, Hgb 13.5, Hct 41.7, MCV 92.9, MCH 30.1, MCHC 32.4, RDW Std Deviation 46.5 H, RDW Coeff of Bria 13.6, Plt Count 58 L, MPV 11.5, Immature Gran % (Auto) 0.600, Neut % (Auto) 85.8 H, Lymph % (Auto) 4.1 L, [place] % (Auto) 9.0, Eos % (Auto) 0.1, Baso % (Auto) 0.4, Absolute Neuts (auto) 10.1 H, Absolute Lymphs (auto) 0.48 L, Nucleated RBC % 0, Platelet Estimate MOD DEC Micro: Microbiology 08/05/23 12:59 Blood Culture (Wb) - Anticubital Right Blood Culture - Preliminary GNR lactose biodiesel plant superintendent 08/05/23 13:26 Blood Culture (Wb) - Anticubital Right Blood Culture - Preliminary GNR lactose biodiesel plant superintendent Radiography Diagnostic Testing: Radiology Impression Abdomen/Pelvis CT 08/05/23 10:39 IMPRESSION: 1. Inflammatory stranding is present in the gallbladder fossa extending into the right subhepatic space down to the right paracolic gutter most likely due to an acute inflammatory process either involving the liver parenchyma or the bile ducts. No visualized liver abscess or radiopaque stone in the CBD, however a few foci of air are seen in the distal aspect of the CBD near the ampulla, presumed to be related to prior surgery or reflect some the adjacent bowel. The air in the CBD is less likely related to a gas forming infectious process, however clinical correlation is recommended. 2. Mild inflammatory stranding and trace fluid is also present near the tail of the pancreas and splenic hilum which could be related to acute pancreatitis. Electronically Signed: Selvin Chamberlain MD at 12:34 EST Reading Location ID and State: [facility] / [place] , Service support , Physical Exam Narrative GENERAL: cooperative HEENT: Atraumatic; normocephalic EYES; Anicteric, Normal Conjunctiva NECK; supple, normal thyroid, RESPIRATORY: Diminished to auscultation CARDIOVASCULAR: Regular S1 S2, GI: soft, normoactive bowel sounds, : No Renal angle tenderness; EXTREMITIES: No edema, no clubbing, MUSCULOSKELETAL: no muscle wasting NEURO: Awake; no lateralizing signs. SKIN: No Rash PSYCH; Flat affect Assessment & Plan Assessment/Plan (1) Cholangitis: PLAN: Plan Patient is a 73-year-old lady who presented with abdominal pain and assessment of acute cholangitis made admitted to regular nursing floor for further management. 1. Acute cholangitis ? Patient admitted to regular nursing floor. Started on broad-spectrum antibiotic therapy with meropenem. Consult was placed to general surgery Dr. Gray who consulted GI for possible ERCP. Patient cultures so far positive for gram-negative john lactose biodiesel plant superintendent awaiting final identification and sensitivities. Patient scheduled to undergo MRCP 2. Acute transaminitis ? Secondary to above we will monitor 3. GERD ? On PPI 4. History of epidural hematoma ? Patient has had numerous surgeries at [facility] 5.Mild hyponatremia ? Patient is on IV fluid with monitor with monitoring of electrolyte 6. Metabolic acidosis ? Secondary to patient infectious process we will monitor 7. Hypocalcemia ? Corrected per protocol repeat labs ordered for monitor 8. DVT prophylaxis ? Avoided blood thinners in view of patient history of epidural hematomas Time spent in the patient's overall evaluation,decision-making process, review of diagnostic data, adjustment of management, discussion with other providers, nursing nursing and ancillary staff involved in patient's care documentation, 50 Minutes Charges/Coding Visit Charges Inpatient E&M: 74603 [facility] Hosp L3
--- NOTE | 2023-08-06 08:58 | CON.PCM.SX_ITS ---
Assessment & Plan Assessment/Plan (1) Cholangitis: PLAN: The patient had CT scan yesterday in the emergency room. This showed a dilated common duct. The patient also has elevated LFTs but bilirubin is more than the others. I reviewed the CT scan and it appears to be as she has an air- containing stone still in her common bile duct. I discussed this with Dr. Mcdowell. She is getting an MRCP today. She has been started on antibiotics. I would defer to him for ERCP as he thinks he may be able to spyglass the stone and get it out. Ole Gray MD Pager: [facility] [address] [place] [address], [address] [place] [address] Office: HPI Consult Data Date of Consult: 08/06/23 HPI Narrative HPI Narrative: CARLA HARRISON, is a 73 F who presents with abdominal pain and jaundice. The patient had ERCP in 2020 for stent done by myself. She was transferred out for large common duct stones. I do not have the outside reports yet. She does not remember if they did ERCP or not. She did have cholecystectomy. She is currently complaining of some epigastric pain. Denies nausea or vomiting or fever. [facility] Medical History (Updated 08/05/23 @ 15:50 by Tawnya Kaufman) Alcohol use Anemia Arthritis Back pain Brain bleed Duodenal ulcer Easy bruising Former smoker Gastric reflux GERD (gastroesophageal reflux disease) GERD (gastroesophageal reflux disease) GI bleed GI bleed History of diverticulitis History of GI bleed History of muscle spasm History of stress test Leg cramps Migraines Restless legs SDH (subdural hematoma) Seizures Wears dentures Home Medications pantoprazole 40 mg tablet,delayed release (Protonix) 40 mg PO DAILY 05/09/21 [History Last Taken 05/10/21 04:00] ascorbate calcium (vitamin C) 500 mg tablet 1 g PO DAILY SUPPLEMENT 08/05/23 [History Last Taken Unknown] cyanocobalamin (vitamin B-12) 1 tab PO DAILY 08/05/23 [History Last Taken Unknown] potassium gluconate 600 mg (99 mg) tablet 600 mg PO DAILY SUPPLEMENT 08/05/23 [History Last Taken Unknown] Allergy/AdvReac Type Severity Reaction Status Date / Time Penicillins Allergy Rash Verified 08/05/23 08:48 prednisone Allergy Rash Verified 08/05/23 08:48 ibuprofen AdvReac Other Verified 08/05/23 08:48 Family History (Updated 08/05/23 @ 13:[address] Bob Antunez DO) Mother Colon cancer Father Colon cancer Aunt Colon cancer Other Heart disease Surgical History (Updated 08/05/23 @ 15:50 by Tawnya Kaufman) History of cholecystectomy Hx of colonoscopy Hx of esophagogastroduodenoscopy S/P tubal ligation S/P wrist surgery Status post craniotomy Social History Smoking Status: Former smoker alcohol intake: never ROS Constitutional Constitutional: Reports anorexia; Denies chills or fatigue Eyes Eyes: Denies blurry vision ENT HEENT: Denies abnormal hearing Cardiovascular Cardiovascular: Denies chest pain Respiratory/Chest Respiratory/Chest: Denies cough or dyspnea Gastrointestinal Gastrointestinal: Reports abdominal pain; Denies constipation, nausea or vomiting Genitourinary Genitourinary: Denies change in urinary stream Musculoskeletal Musculoskeletal: Denies abnormal gait Integumentary Integumentary: Reports jaundice; Denies new lesions Neurologic Neurologic: Denies abnormal gait Psychiatric Psychiatric: Denies anxiety Endocrine Endocrinology: Denies flushing Hematologic/Lymphatic Hematologic/Lymphatic: Denies easy bleeding Physical Exam Const alert and oriented x3 HEENT normocephalic Eyes PERRL Chest inspection of chest normal Cardio Rate: regular rate Rhythm: regular rhythm GI soft to palpation Palpation: tender epigastric Lab / Micro Data 08/06/23 05:30 08/06/23 05:23 Labs: Laboratory Results - last 24 hr 08/05/23 09:13: Urine Color Yellow, Urine Clarity Clear, Urine pH 6.0, Ur Specific Shepherd 1.020, Urine Protein 100 H, Urine Glucose (UA) Normal, Urine Ketones 5 H, Urine Occult Blood 250 H, Urine Nitrite Positive H, Urine Bilirubin 6 H, Urine Urobilinogen 8 H, Ur Leukocyte Esterase 500 H, Urine RBC 5-10 SEEN, Urine WBC 10-25 SEEN, Ur Squamous Epith Cells 0-5 SEEN, Urine Bacteria 1+, Urine Mucus 0 SEEN 08/05/23 09:18: WBC 15.4 H, RBC 4.76, Hgb 14.4, Hct 43.2, MCV 90.8, MCH 30.3, MCHC 33.3, RDW Std Deviation 45.4 H, RDW Coeff of Bria 13.5, Plt Count 78 L, MPV 11.5, Immature Gran % (Auto) 0.800, Neut % (Auto) 89.9 H, Lymph % (Auto) 3.6 L, [place] % (Auto) 5.4, Eos % (Auto) 0.0, Baso % (Auto) 0.3, Absolute Neuts (auto) 13.9 H, Absolute Lymphs (auto) 0.55 L, Nucleated RBC % 0, Differential Comment SCANNED, Platelet Estimate MOD DEC, Sodium 134 L, Potassium 3.7, Chloride 101, Carbon Dioxide 25.0, Anion Gap 8, BUN 18, Creatinine 0.80, Estim Creat Clear Calc 71.33, Est GFR (MDRD) Af Amer 90, Est GFR (MDRD) Non-Af 75, BUN/Creatinine Ratio 22.4 H, Glucose 123 H, Calcium 8.7, Total Bilirubin 7.80 H, Direct Bilirubin 5.45 H, AST 93 H, ALT 223 H, Alkaline Phosphatase 172 H, Total Protein 6.3 L, Albumin 2.7 L, Globulin 3.6, Lipase 16 08/06/23 05:23: Sodium 133 L, Potassium 4.1, Chloride 107, Carbon Dioxide 19.0 L , Anion Gap 7, BUN 13, Creatinine 0.64, Estim Creat Clear Calc 70.96, Est GFR (MDRD) Af Amer 118, Est GFR (MDRD) Non-Af 98, BUN/Creatinine Ratio 20.5 H, Glucose 113 H, Calcium 8.0 L, Total Bilirubin 11.00 H, AST 67 H, ALT 144 H, Alkaline Phosphatase 172 H, Total Protein 5.7 L, Albumin 1.9 L, Globulin 3.8, Albumin/Globulin Ratio 0.5 L 08/06/23 05:30: WBC 11.8 H, RBC 4.49, Hgb 13.5, Hct 41.7, MCV 92.9, MCH 30.1, MCHC 32.4, RDW Std Deviation 46.5 H, RDW Coeff of Bria 13.6, Plt Count 58 L, MPV 11.5, Immature Gran % (Auto) 0.600, Neut % (Auto) 85.8 H, Lymph % (Auto) 4.1 L, [place] % (Auto) 9.0, Eos % (Auto) 0.1, Baso % (Auto) 0.4, Absolute Neuts (auto) 10.1 H, Absolute Lymphs (auto) 0.48 L, Nucleated RBC % 0, Platelet Estimate MOD DEC Micro: Microbiology 08/05/23 12:59 Blood Culture (Wb) - Anticubital Right Blood Culture - P reliminary GNR lactose obstetric anaesthetist 08/05/23 13:26 Blood Culture (Wb) - Anticubital Right Blood Culture - Preliminary GNR lactose obstetric anaesthetist Imaging Radiology Impression Abdomen/Pelvis CT 08/05/23 10:39 IMPRESSION: 1. Inflammatory stranding is present in the gallbladder fossa extending into the right subhepatic space down to the right paracolic gutter most likely due to an acute inflammatory process either involving the liver parenchyma or the bile ducts. No visualized liver abscess or radiopaque stone in the CBD, however a few foci of air are seen in the distal aspect of the CBD near the ampulla, presumed to be related to prior surgery or reflect some the adjacent bowel. The air in the CBD is less likely related to a gas forming infectious process, however clinical correlation is recommended. 2. Mild inflammatory stranding and trace fluid is also present near the tail of the pancreas and splenic hilum which could be related to acute pancreatitis. Electronically Signed: Selvin Chamberlain MD at 12:34 EST ,
--- NOTE | 2023-08-06 09:00 | MRI_ITS ---
Examination: MRI of the abdomen and MRCP INDICATION: Suspected cholangitis. Status post cholecystectomy May 10, 2023 COMPARISON: MRCP dated July 17, 2017 ERCP dated May 10, [address] dated August 04, 2021 FINDINGS: There are small bilateral pleural effusions. Motion artifact degrades anatomic detail. There is intra and extrahepatic ductal dilatation. The gallbladder is surgically absent. There is a T1 and T2 hypointense round focus within the common bile duct measuring up to 1.9 cm suggestive of choledocholithiasis There is stable trace fluid within the gallbladder fossa. The pancreas is within normal limits. The spleen is within normal limits. The adrenal glands are grossly unremarkable. The kidneys are stable. There are stable left parapelvic cysts. The stomach is within normal limits. The visualized loops of small bowel and colon are within normal limits. There are postsurgical changes along the anterior abdominal wall. There are stable cystic foci within the right neural foramen region of the lower thoracic vertebra suggestive of perineural cysts. There are hemangiomas within the lumbar vertebra again visualized. MRI/MRCP Abdomen without Contrast IMPRESSION: Intra and extrahepatic ductal dilatation secondary to choledocholithiasis. Electronically Signed: Cee Morris MD at 11:20 EST ,
[2023-08-06] MEDS: Calcium Gluconate IV 1 GM in 0.9% Normal Saline (100mL Bag) 100 ML IV (10:24)
[2023-08-06] MEDS: Pantoprazole Sodium 40 MG Tablet PO (10:28)
--- NOTE | 2023-08-06 11:20 | CASEMGMT ---
MICHOACANO GARCIA Assessment: Face to Face with pt for initial transition planning/care coordination assessment. MICHOACANO GARCIA introduced self and role at [facility], pt voices understanding and consents to assessment. Pt is A&O x4 and answers all questions appropriately at this time. Pt lying in bed in no distress with dtr and son in law at bedside. Pt agreeable to assessment with family present. Care providers, pharmacy, and demographics verified/updated. Admitting Dx:suspected cholangitis PCP:Sarah Specialists:Denies Preferred Pharmacy:[facility] Insurance: [facility] Prescription Benefit: yes LNOK: Inga Nieniece, dtr; Alisia Michele, sister Living Arrangements: Pt lives alone in a two story home with 5-6 steps to enter with a rail. Pt reports she is I in all ADL's/IADL's. Pt denies concerns at home. Transportation: Pt drives self and denies concerns with transportation. DME:shower chair HHC/SNF: Pt has had HHC in the past but cannot recall the name of the agency. Pt has been to [facility]. Pt states no concerns with going home at time of dc. Pt states no further concerns/needs. CM to follow. Advised pt to ask CM if any further question/concerns/needs arise, voices understanding. Pt Goal: Home Plan: Home Pankaj RÍOS CM
[2023-08-06 13:27] VITALS: BP 139/71; PULSE 89; RESP 18; TEMP 37; O2SAT 94
[2023-08-06] MEDS: Morphine 2 MG/ML Syringe IV (13:29)
--- NOTE | 2023-08-06 16:12 | CHAPLAIN ---
Type of Pastoral Visit _x__ Initial Visit ___ Follow-up Visit ___ On-call Visit ___ General Patient Visit ___ Spiritual Assessment ___ Family Conference ___ Bereavement ___ Rapid Response ___ Code Blue ___ Other (describe below) Pastoral Care Referral From _x__ Patient ___ Family ___ Nurse ___ Physician ___ Managing Editor ___ Personnel Records Clerk ___ Other (describe below) Sacrament/Intervention _x__ Active listening ___ Anointing ___ Caodaism ___ Bereavement ___ Communion ___ Carol exploration ___ ___ Life review _x__ Prayer ___ Reconciliation ___ Sacrament of Sick ___ Supportive presence ___ Wedding ___ Other (describe below) Pastoral Comments patient gives some health history and today's goal of getting answers from testing done; family members are with her for support; pt requests a prayer
--- NOTE | 2023-08-06 17:31 | CON.PCM.GI_ITS ---
HPI Consult Data Date of Consult: 08/06/23 HPI Narrative Reason for Consultation: cholangitis HPI Narrative: CARLA HARRISON, is a 73-year-old woman with history of cholelithiasis and choledocholithiasis who has been seen by Dr. Gray. She presents with upper abdominal pain that started Sunday evening while sitting. Nothing makes the pain better or worse. She does endorse nausea and vomiting. She denies coffee-ground emesis or blood in her emesis. She denies black or maroon-colored stool. She does endorse smaller size stool and harder stool over the past several weeks. She was afebrile in the ED and hypertensive with mild ta chycardia. Lab analysis: Total bilirubin of 11, AST 67, ALT 144, alkaline phosphatase 172, albumin 1.9, CO2 19, sodium 133, BUN/creatinine 13/0.64 CT scan abdomen pelvis displayed: Inflammatory stranding is present in the gallbladder fossa extending into the right subhepatic space down to the right paracolic gutter most likely due to an acute inflammatory process either involving the liver parenchyma or the bile ducts. No visualized liver abscess or radiopaque stone in the CBD, however a few foci of air are seen in the distal aspect of the CBD near the ampulla, presumed to be related to prior surgery or reflect some the adjacent bowel. The air in the CBD is less likely related to a gas forming infectious process, however clinical correlation is recommended. 2. Mild inflammatory stranding and trace fluid is also present near the tail of the pancreas and splenic hilum which could be related to acute pancreatitis. She does have a history of fatty liver. She states she occasionally will have a drink. She is a former smoker. She denies fever, chills or night sweats. She denies weight loss. She denies headache, visual, ocular auditory symptoms. She denies cardiac or respiratory symptoms. She denies dysuria, frequency or hematuria. She states her color is dark. When asked to describe the color it is namrata. She was unaware that her skin has a yellow appearance and she has scleral icterus. She states she took her stomach medicine however she vomited shortly after taking it yesterday. She has not taken anything today. She has had surgery in the past for perforated ulcer and had a B1 repair. Dr. Gray's H&P in 2020. MRCP is pending [facility] Medical History (Updated 08/05/23 @ 15:50 by Tawnya Kaufman) Alcohol use Anemia Arthritis Back pain Brain bleed Duodenal ulcer Easy bruising Former smoker Gastric reflux GERD (gastroesophageal reflux disease) GERD (gastroesophageal reflux disease) GI bleed GI bleed History of diverticulitis History of GI bleed History of muscle spasm History of stress test Leg cramps Migraines Restless legs SDH (subdural hematoma) Seizures Wears dentures Home Medications pantoprazole 40 mg tablet,delayed release (Protonix) 40 mg PO DAILY 05/09/21 [History Last Taken 05/10/21 04:00] ascorbate calcium (vitamin C) 500 mg tablet 1 g PO DAILY SUPPLEMENT 08/05/23 [History Last Taken Unknown] cyanocobalamin (vitamin B-12) 1 tab PO DAILY 08/05/23 [History Last Taken Unknown] potassium gluconate 600 mg (99 mg) tablet 600 mg PO DAILY SUPPLEMENT 08/05/23 [History Last Taken Unknown] Allergy/AdvReac Type Severity Reaction Status Date / Time Penicillins Allergy Rash Verified 08/05/23 08:48 prednisone Allergy Rash Verified 08/05/23 08:48 ibuprofen AdvReac Other Verified 08/05/23 08:48 Family History (Updated 08/05/23 @ 13:[address] Bob Antunez DO) Mother Colon cancer Father Colon cancer Aunt Colon cancer Other Heart disease Surgical History (Updated 08/05/23 @ 15:50 by Tawnya Kaufman) History of cholecystectomy Hx of colonoscopy Hx of esophagogastroduodenoscopy S/P tubal ligation S/P wrist surgery Status post craniotomy Social History Smoking Status: Former smoker alcohol intake: never ROS Constitutional Constitutional: Reports anorexia; Denies chills or fatigue Eyes Eyes: Denies blurry vision ENT HEENT: Denies abnormal hearing Cardiovascular Cardiovascular: Denies chest pain Respiratory/Chest Respiratory/Chest: Denies cough or dyspnea Gastrointestinal Gastrointestinal: Reports abdominal pain; Denies constipation, nausea or vomiting Genitourinary Genitourinary: Denies change in urinary stream Musculoskeletal Musculoskeletal: Denies abnormal gait Integumentary Integumentary: Reports jaundice; Denies new lesions Neurologic Neurologic: Denies abnormal gait Psychiatric Psychiatric: Denies anxiety Endocrine Endocrinology: Denies flushing Hematologic/Lymphatic Hematologic/Lymphatic: Denies easy bleeding Physical Exam Const alert and oriented x3 HEENT normocephalic Eyes PERRL Chest inspection of chest normal Cardio Rate: regular rate Rhythm: regular rhythm GI soft to palpation Palpation: tender epigastric Lab / Micro Data 08/06/23 05:30 08/06/23 05:23 Labs: Laboratory Results - last 24 hr 08/06/23 05:23: Sodium 133 L, Potassium 4.1, Chloride 107, Carbon Dioxide 19.0 L , Anion Gap 7, BUN 13, Creatinine 0.64, Estim Creat Clear Calc 70.96, Est GFR (MDRD) Af Amer 118, Est GFR (MDRD) Non-Af 98, BUN/Creatinine Ratio 20.5 H, Glucose 113 H, Calcium 8.0 L, Total Bilirubin 11.00 H, AST 67 H, ALT 144 H, Alkaline Phosphatase 172 H, Total Protein 5.7 L, Albumin 1.9 L, Globulin 3.8, Albumin/Globulin Ratio 0.5 L 08/06/23 05:30: WBC 11.8 H, RBC 4.49, Hgb 13.5, Hct 41.7, MCV 92.9, MCH 30.1, MCHC 32.4, RDW Std Deviation 46.5 H, RDW Coeff of Bria 13.6, Plt Count 58 L, MPV 11.5, Immature Gran % (Auto) 0.600, Neut % (Auto) 85.8 H, Lymph % (Auto) 4.1 L, [place] % (Auto) 9.0, Eos % (Auto) 0.1, Baso % (Auto) 0.4, Absolute Neuts (auto) 10.1 H, Absolute Lymphs (auto) 0.48 L, Nucleated RBC % 0, Platelet Estimate MOD DEC Micro: Microbiology 08/05/23 12:59 Blood Culture (Wb) - Anticubital Right Blood Culture - Preliminary GNR lactose quality assurance monitor chassis 08/05/23 13:26 Blood Culture (Wb) - Anticubital Right Blood Culture - Preliminary GNR lactose quality assurance monitor chassis Assessment & Plan Assessment/Plan (1) Cholangitis: (2) Jaundice: (3) Choledocholithiasis: PLAN: Plan 73-year-old with past medical history of choledocholithiasis status post ERCP with stent placement and history of cholecystitis status postcholecystectomy presents with worsening abdominal pain and discovered to have large stone burden in her distal common bile duct. She had MRCP which is pending. The plan is for ERCP with spyglass and lithotripsy tomorrow. Continue scheduled antibiotics. She also has signs and symptoms of pancreatitis is likely secondary to adjacent obstruction of the common bile duct. Recommend IV fluids at 200 cc an hour of normal saline. N.p.o. past midnight. Charges/Coding Visit Charges Inpatient E&M: 65796 Init Hosp L3
[2023-08-06 20:25] VITALS: BP 122/57; PULSE 91; RESP 18; TEMP 37.1; O2SAT 96
[2023-08-07] VITALS (8 sets, daily range): BP systolic 87–126; BP diastolic 57–71; PULSE 86–102; RESP 16–20; TEMP 36.2–37.1; O2SAT 93–100; BMI 29.1
[2023-08-07] MEDS: 0.9% Normal Saline (1000mL) 1,000 ML 125 ML IV ×2 (04:12→17:57)
[2023-08-07] MEDS: Meropenem 1 GM in 0.9% Normal Saline (100mL MB+) 100 ML IV ×3 (04:50→22:53)
--- NOTE | 2023-08-07 05:00 | EKG12_ITS ---
Test Reason : AM EKG Blood Pressure : / mmHG Vent. Rate : 087 BPM Atrial Rate : 087 BPM P-R Int : 138 ms QRS Dur : 120 ms QT Int : 414 ms P-R-T Axes : 041 038 005 degrees QTc Int : 498 ms Normal sinus rhythm Low voltage QRS Right bundle branch block T wave abnormality, consider inferior ischemia Abnormal ECG Confirmed by Julián Ott ([id number]), supervising editor news reel SUSHIL RUCKER ([id number]) on 08/07/2023 2:21:41 PM Referred By: MARGARITA Confirmed By:Julián Ott
[2023-08-07 05:59] LABS: Absolute Lymphocyte Count 0.89 X10^3/uL (0.83-4.51); Absolute Neutrophil Count 9.4 X10^3/uL (2.0-7.7); Basophil# 0.02 X10^3/uL; Basophil% 0.2 % (0-1); Eosinophil# 0.02 X10^3/uL; Eosinophils% 0.2 % (0-5); Hematocrit 36.9 % (37-47); Hemoglobin 12.5 g/dL (12.0-15.0); Lymphocyte # 0.89 X10^3/ul (0.83-4.51); Lymphocyte % 7.5 % (19-41); Mean Corp Hgb Conc 33.9 g/dL (32-36); Mean Corpuscular Hgb 30.2 pg (27.0-32.0); Mean Corpuscular Volume 89.1 fL (81-99); Monocyte% 11.9 % (0-10); NRBC Flagged by Analyzer 0 % (0-5); Neutrophil # 9.35 X10^3/uL (2.7-7.7); Neutrophil % 79.2 % (47-70); POSITIVE COUNT YES; Platelet Count 80 K/mm3 (150-450); RBC Distribution Width CV 13.6 % (11.6-14.6); RBC Distribution Width SD 44.7 fl (35.1-43.9); Red Blood Count 4.14 M/mm3 (4.2-5.4); White Blood Count 11.8 K/mm3 (4.4-11.0)
[2023-08-07 07:01] LABS: Anion Gap 9 (5-15); BUN 11 mg/dL (7-18); BUN/Creat Ratio 22.8 RATIO (10-20); Calcium,Total 7.8 mg/dL (8.5-10.1); Chloride 107 mmol/L (98-107); Creatinine, Serum 0.48 mg/dL (0.55-1.02); EST Glomerular Filtration Rate 134 mL/min (>60); Est Glom Filt Rate - Afr Amer 162 mL/min (>60); Estimated Creatinine Clearance 70.96 ml/min; Glucose 99 mg/dL (74-106); Magnesium 1.7 mg/dL (1.6-2.6); Phosphorus 1.4 mg/dL (2.5-4.9); Potassium 3.5 mmol/L (3.5-5.1); Sodium Level 139 mmol/L (136-145)
--- NOTE | 2023-08-07 07:44 | PCM.PN.HOSP ---
Reason for Visit Reason for Visit: Diagnoses Calculus of bile duct without cholangitis or cholecystitis without obstruction (08/05/23) Other cholangitis (08/05/23) Unspecified jaundice (08/05/23) Subjective Subjective Patient is scheduled to undergo ERCP with spyglass and lithotripsy Objective Data Objective Data Vital Signs: Vital Signs Temp Pulse Resp BP Pulse Ox O2 Del Method 98.7 F 91 18 126/71 H 93 Room Air 08/07/23 04:00 08/07/23 04:00 08/07/23 04:00 08/07/23 04:00 08/07/23 04:00 08/07/23 04:00 Oxygen Delivery Method Room Air Weight: 84.397 kg Body Mass Index (BMI) 29.1 Intake & Output: Intake and Output for Last 24 Hours 08/05/23 08/06/23 08/07/23 23:59 23:59 23:59 Intake Total 1120 / 1120 3647.09 / 3647.09 1097.08 / 1097.08 Output Total 1800 / 1800 Balance 1120 / 1120 1847.09 / 1847.09 1097.08 / 1097.08 Lab / Micro Data 08/07/23 05:39 08/07/23 05:39 Labs: Laboratory Results - last 24 hr 08/06/23 05:30: Platelet Estimate MOD 08/07/23 05:39: WBC 11.8 H, RBC 4.14 L, Hgb 12.5, Hct 36.9 L, MCV 89.1, MCH 30.2, MCHC 33.9, RDW Std Deviation 44.7 H, RDW Coeff of Bria 13.6, Plt Count 80 L, MPV 11.0, Immature Gran % (Auto) 1.000 H, Neut % (Auto) 79.2 H, Lymph % (Auto) 7.5 L, [place] % (Auto) 11.9 H, Eos % (Auto) 0.2, Baso % (Auto) 0.2, Absolute Neuts (auto) 9.4 H, Absolute Lymphs (auto) 0.89, Nucleated RBC % 0, Sodium 139, Potassium 3.5, Chloride 107, Carbon Dioxide 23.0, Anion Gap 9, BUN 11, Creatinine 0.48 L, Estim Creat Clear Calc 70.96, Est GFR (MDRD) Af Amer 162, Est GFR (MDRD) Non-Af 134, BUN/Creatinine Ratio 22.8 H, Glucose 99, Calcium 7.8 L, Phosphorus 1.4 L, Magnesium 1.7 Micro: Microbiology 08/05/23 10:36 Urine, Clean Catch Urine Culture - Final Mixed Gram Positive Organisms 08/05/23 12:59 Blood Culture (Wb) - Anticubital Right Blood Culture - Preliminary GNR lactose crew scheduler 08/05/23 13:26 Blood Culture (Wb) - Anticubital Right Blood Culture - Preliminary GNR lactose crew scheduler Physical Exam Narrative GENERAL: cooperative HEENT: Atraumatic; normocephalic EYES; Anicteric, Normal Conjunctiva NECK; supple, normal thyroid, RESPIRATORY: Diminished to auscultation CARDIOVASCULAR: Regular S1 S2, GI: soft, normoactive bowel sounds, : No Renal angle tenderness; EXTREMITIES: No edema, no clubbing, MUSCULOSKELETAL: no muscle wasting NEURO: Awake; no lateralizing signs. SKIN: No Rash PSYCH; Flat affect Assessment & Plan Assessment/Plan (1) Cholangitis: PLAN: Plan Patient is a 73-year-old lady who presented with abdominal pain and assessment of acute cholangitis made admitted to regular nursing floor for further management. 1. Acute cholangitis ? Patient admitted to regular nursing floor. Started on broad-spectrum antibiotic therapy with meropenem. Consult was placed to general surgery Dr. Gray who consulted GI for possible ERCP. Patient cultures so far positive for gram-negative john lactose crew scheduler awaiting final identification and sensitivities. Patient scheduled to undergo MRCP ? 08/07/2023; patient is scheduled to undergo ERCP with spyglass and lithotripsy 2. Acute transaminitis ? Secondary to above we will monitor 3. GERD ? On PPI 4. History of epidural hematoma ? Patient has had numerous surgeries at [facility] 5.Mild hyponatremia ? Patient is on IV fluid with monitor with monitoring of electrolyte 6. Metabolic acidosis ? Secondary to patient infectious process we will monitor 7. Hypocalcemia ? Corrected per protocol repeat labs ordered for monitor 8. DVT prophylaxis ? Avoided blood thinners in view of patient history of epidural hematomas Time spent in the patient's overall evaluation,decision-making process, review of diagnostic data, adjustment of management, discussion with other providers, nursing nursing and ancillary staff involved in patient's care documentation, 35 Minutes Charges/Coding Visit Charges Inpatient E&M: 43833 Subs Hosp L2
--- NOTE | 2023-08-07 14:40 | RAD_ITS ---
STUDY: RETROGRAD ERCP REASON FOR EXAM: Female, 73 years old. Flank pain FLUOROSCOPY : N OR. ERCP. UNSUCCESSFUL. 24 SPOTS. 29.2 SECONDS. 13.81 mGy. TECHNIQUE: Intraoperative fluoroscopy. 25 intraoperative views. COMPARISON: None. FINDINGS: The bile ducts and the pancreatic ducts could not be opacified. RAD/ERCP Biliary/Pancreas IMPRESSION: The bile ducts and the pancreatic ducts could not be opacified. Electronically Signed: Johanne Vernon MD at 4:22 EST ,
--- NOTE | 2023-08-07 16:49 | OP.ERCP_ITS ---
Patient Name: Brooke Sanchez Procedure Date: 08/07/2023 2:10 PM Date of : 1950 Age: 73 Procedure: ERCP Indications: Bile duct stone(s) Providers: Flash Mcdowell DO Medicines: Monitored Anesthesia Care Patient Profile: This is a 73 year old female. Refer to note in patient chart for documentation of history and physical. Patient has symptoms of acute jaundice. She is status post antrectomy within the past several years. Complications: No immediate complications. Procedure: Pre-Anesthesia Assessment: - Prior to the procedure, a History and Physical was performed, and patient medications and allergies were reviewed. The patient is competent. The risks and benefits of the procedure and the sedation options and risks were discussed with the patient. All questions were answered and informed consent was obtained. Patient identification and proposed procedure were verified by the physician in the pre-procedure area. Mental Status Examination: alert and oriented. Airway Examination: normal oropharyngeal airway and neck mobility. Respiratory Examination: clear to auscultation. CV Examination: normal. Prophylactic Antibiotics: The patient does not require prophylactic antibiotics. Prior Anticoagulants: The patient has taken no anticoagulant or antiplatelet agents. ASA Grade Assessment: III - A patient with severe systemic disease. After reviewing the risks and benefits, the patient was deemed in satisfactory condition to undergo the procedure. The anesthesia plan was to use monitored anesthesia care (MAC). Immediately prior to administration of medications, the patient was re-assessed for adequacy to receive sedatives. The heart rate, respiratory rate, oxygen saturations, blood pressure, adequacy of pulmonary ventilation, and response to care were monitored throughout the procedure. The physical status of the patient was re-assessed after the procedure. After obtaining informed consent, the scope was passed under direct vision. Throughout the procedure, the patient's blood pressure, pulse, and oxygen saturations were monitored continuously. The Duodenoscope was introduced through the mouth, with the intention of advancing to the bile ducts. The scope was advanced to the bile duct alone before the procedure was aborted. Medications were given. The ERCP was accomplished without difficulty. The patient tolerated the procedure well. Scope In: 2:41:11 PM Scope Out: 4:36:39 PM Total Procedure Duration Time 1 hour 55 minutes 28 seconds Findings: The utility tender carding film was normal. The esophagus was successfully intubated under direct vision. The scope was advanced to a normal major papilla in the descending duodenum without detailed examination of the pharynx, larynx and associated structures, and upper GI tract. The upper GI tract was grossly normal. The bile duct was deeply cannulated with the short-nosed traction sphincterotome. Contrast was injected. I personally interpreted the bile duct images. The flow of contrast through the ducts was poor. Image quality was suboptimal. Contrast extended to the main bile duct. Opacification of the lower third of the main bile duct was incomplete. The maximum diameter of the ducts is unknown. The lower third of the main bile duct contained one stone. Placement of a 0.035 inch x 260 cm angled Hydra Jagwire into the biliary tree was attempted. This would not pass. A standard esophagogastroduodenoscopy scope was used for the examination of the upper gastrointestinal tract. The scope was passed under direct vision through the upper GI tract. Evidence of a stenosed Billroth II gastrojejunostomy was found. The gastrojejunal anastomosis was characterized by ulceration. This was traversed. The efferent limb was examined. The afferent limb was examined. Impression: - Choledocholithiasis was found. Removal was not attempted; no stent was inserted. Recommendation: Transfer for a [facility] Procedure Code(s): --- Professional --- 44025, 52, Endoscopic retrograde cholangiopancreatography (ERCP); diagnostic, including collection of specimen(s) by brushing or washing, when performed (separate procedure) 46872, 26, Endoscopic catheterization of the biliary ductal system, radiological supervision and interpretation CPT copyright 2021 [employer]. All rights reserved. The codes documented in this report are preliminary and upon scribing machine operator review may be revised to meet current compliance requirements. Flash Mcdowell DO 08/07/2023 4:49:10 PM This report has been signed electronically. Number of Addenda: 0 Note Initiated On: 08/07/2023 2:10 PM
[2023-08-08] VITALS (7 sets, daily range): BP systolic 119–130; BP diastolic 39–69; PULSE 81–91; RESP 16–18; TEMP 36.6–37.1; O2SAT 92–97
[2023-08-08] MEDS: 0.9% Normal Saline (1000mL) 1,000 ML 125 ML IV ×3 (01:35→18:36)
[2023-08-08] MEDS: Meropenem 1 GM in 0.9% Normal Saline (100mL MB+) 100 ML IV ×3 (05:32→22:13)
[2023-08-08 06:17] LABS: Absolute Lymphocyte Count 1.67 X10^3/uL (0.83-4.51); Basophil% 0.7 % (0-1); Eosinophil# 0.05 X10^3/uL; Eosinophils% 0.3 % (0-5); Hematocrit 36.1 % (37-47); Hemoglobin 12.4 g/dL (12.0-15.0); Lymphocyte # 1.67 X10^3/ul (0.83-4.51); Lymphocyte % 11.3 % (19-41); Mean Corp Hgb Conc 34.3 g/dL (32-36); Mean Corpuscular Hgb 30.3 pg (27.0-32.0); Mean Corpuscular Volume 88.3 fL (81-99); Mean Platelet Vol. 10.9 fl (6.2-12.0); Monocyte# 1.47 X10^3/uL; NRBC Flagged by Analyzer 0 % (0-5); Neutrophil # 10.96 X10^3/uL (2.7-7.7); Neutrophil % 74.2 % (47-70); POSITIVE MORPHOLOGY YES; Platelet Count 101 K/mm3 (150-450); RBC Distribution Width CV 13.7 % (11.6-14.6); RBC Distribution Width SD 44.1 fl (35.1-43.9); Red Blood Count 4.09 M/mm3 (4.2-5.4); White Blood Count 14.8 K/mm3 (4.4-11.0)
[2023-08-08 06:33] LABS: Anion Gap 7 (5-15); BUN 11 mg/dL (7-18); BUN/Creat Ratio 22.9 RATIO (10-20); Calcium,Total 7.8 mg/dL (8.5-10.1); Chloride 109 mmol/L (98-107); Creatinine, Serum 0.48 mg/dL (0.55-1.02); EST Glomerular Filtration Rate 135 mL/min (>60); Est Glom Filt Rate - Afr Amer 163 mL/min (>60); Estimated Creatinine Clearance 70.96 ml/min; Glucose 95 mg/dL (74-106); Potassium 3.5 mmol/L (3.5-5.1); Sodium Level 140 mmol/L (136-145)
[2023-08-08 06:51] LABS: Differential Indicated SCAN CRITERIA MET
--- NOTE | 2023-08-08 07:21 | PCM.PN.HOSP ---
Reason for Visit Reason for Visit: Diagnoses Calculus of bile duct without cholangitis or cholecystitis without obstruction (08/05/23) Other cholangitis (08/05/23) Unspecified jaundice (08/05/23) Subjective Subjective Patient underwent ERCP the day prior choledocholithiasis was found however removal was not attempted numerous times X8 given patient modified anatomy after her Billroth II surgery. Case discussed with Dr. Mcdowell plans for patient to be transferred to tertiary [facility] Objective Data Objective Data Vital Signs: Vital Signs Temp Pulse Resp BP Pulse Ox O2 Del Method O2 Flow Rate 98.1 F 89 16 127/69 H 95 Room Air 2 08/08/23 05:25 08/08/23 05:25 08/08/23 05:25 08/08/23 05:25 08/08/23 05:25 08/08/23 05:25 08/07/23 18:56 Oxygen Flow Rate (L/min) 2 Oxygen Delivery Method Room Air Weight: 84.397 kg Body Mass Index (BMI) 29.1 Intake & Output: Intake and Output for Last 24 Hours 08/06/23 08/07/23 08/08/23 23:59 23:59 23:59 Intake Total 3647.09 / 3647.09 3587.08 / 3787.08 1474.17 / 1474.17 Output Total 1800 / 1800 500 / 500 Balance 1847.09 / 1847.09 3087.08 / 3287.08 1474.17 / 1474.17 Lab / Micro Data 08/08/23 05:40 08/08/23 05:40 Labs: Laboratory Results - last 24 hr 08/08/23 05:40: WBC 14.8 H, RBC 4.09 L, Hgb 12.4, Hct 36.1 L, MCV 88.3, MCH 30.3, MCHC 34.3, RDW Std Deviation 44.1 H, RDW Coeff of Bria 13.7, Plt Count 101 L, MPV 10.9, Immature Gran % (Auto) 3.500 H, Neut % (Auto) 74.2 H, Lymph % (Auto) 11.3 L, [place] % (Auto) 10.0, Eos % (Auto) 0.3, Baso % (Auto) 0.7, Absolute Neuts (auto) 11.0 H, Absolute Lymphs (auto) 1.67, Nucleated RBC % 0, Sodium 140, Potassium 3.5, Chloride 109 H, Carbon Dioxide 24.0, Anion Gap 7, BUN 11, Creatinine 0.48 L, Estim Creat Clear Calc 70.96, Est GFR (MDRD) Af Amer 163, Est GFR (MDRD) Non-Af 135, BUN/Creatinine Ratio 22.9 H, Glucose 95, Calcium 7.8 L Micro: Microbiology 08/05/23 12:59 Blood Culture (Wb) - Anticubital Right Blood Culture - Preliminary GNR lactose enterprise resource planner 08/05/23 13:26 Blood Culture (Wb) - Anticubital Right Blood Culture - Preliminary GNR lactose enterprise resource planner 08/05/23 10:36 Urine, Clean Catch Urine Culture - Final Mixed Gram Positive Organisms Radiography Diagnostic Testing: Radiology Impression MRCP 08/06/23 09:00 IMPRESSION: Intra and extrahepatic ductal dilatation secondary to choledocholithiasis. Electronically Signed: Cee Morris MD at 11:20 EST , Endo Retro Cholangiopancreatogram 08/07/23 14:40 IMPRESSION: The bile ducts and the pancreatic ducts could not be opacified. Electronically Signed: Johanne Vernon MD at 4:22 EST , Physical Exam Narrative GENERAL: cooperative HEENT: Atraumatic; normocephalic EYES; Anicteric, Normal Conjunctiva NECK; supple, normal thyroid, RESPIRATORY: Diminished to auscultation CARDIOVASCULAR: Regular S1 S2, GI: soft, normoactive bowel sounds, : No Renal angle tenderness; EXTREMITIES: No edema, no clubbing, MUSCULOSKELETAL: no muscle wasting NEURO: Awake; no lateralizing signs. SKIN: No Rash PSYCH; Flat affect Assessment & Plan Assessment/Plan (1) Cholangitis: PLAN: Plan Patient is a 73-year-old lady who presented with abdominal pain and assessment of acute cholangitis made admitted to regular nursing floor for further management. 1. Acute cholangitis ? Patient admitted to regular nursing floor. Started on broad-spectrum antibiotic therapy with meropenem. Consult was placed to general surgery Dr. Gray who consulted GI for possible ERCP. Patient cultures so far positive for gram-negative john lactose enterprise resource planner awaiting final identification and sensitivities. Patient scheduled to undergo MRCP ? 08/07/2023; patient is scheduled to undergo ERCP with spyglass and lithotripsy ?08/08/2023;Patient underwent ERCP the day prior choledocholithiasis was found however removal was not attempted numerous times X8 given patient modified anatomy after her Billroth II surgery. Case discussed with Dr. Mcdowell plans for patient to be transferred to tertiary care center 2. Acute transaminitis ? Secondary to above we will monitor 3. GERD ? On PPI 4. History of epidural hematoma ? Patient has had numerous surgeries at [facility] 5.Mild hyponatremia ? Patient is on IV fluid with monitor with monitoring of electrolyte 6. Metabolic acidosis ? Secondary to patient infectious process we will monitor 7. Hypocalcemia ? Corrected per protocol repeat labs ordered for monitor 8. DVT prophylaxis ? Avoided blood thinners in view of patient history of epidural hematomas Time spent in the patient's overall evaluation,decision-making process, review of diagnostic data, adjustment of management, discussion with other providers, nursing nursing and ancillary staff involved in patient's care documentation, 35 Minutes Charges/Coding Visit Charges Inpatient E&M: 84220 Subs Hosp L2
[2023-08-08] MEDS: Pantoprazole Sodium 40 MG Tablet PO (08:01)
[2023-08-08 08:55] LABS: AST(SGOT) 89 U/L (15-37); Alanine Aminotransfer ALT/SGPT 89 U/L (13-56); Albumin, Serum 1.8 g/dL (3.2-5.0); Alkaline Phosphatase 171 U/L (45-117); Bilirubin, Direct 11.05 mg/dL (0.00-0.30); Globulin 3.1 g/dL (2.2-4.2); Protein, Total 4.9 g/dL (6.4-8.2)
--- NOTE | 2023-08-08 10:39 | DS.PCM_ITS ---
Providers Date of Admission: 08/05/23 Date of Discharge: 08/10/23 Primary Care Physician: Dr. Mary Smith, DO Consultations 08/05/23 14:38 Consult: General Surgery Routine Consulting Provider: Ole Gray Reason for Consult: possible cholangitis EMERGENT Consult: No Notified: Yes Date Notified: 08/05/23 Time Notified: 13:31 Method of Notification: Verbal 08/06/23 06:48 Consult: Gastroenterology Routine Consulting Provider: [facility] Reason for Consult: large CBD stone EMERGENT Consult: No Notified: Yes Date Notified: 08/06/23 Time Notified: 06:48 Method of Notification: Verbal Reason For Visit: SUSPECTED CHOLANGITIS Diagnosis Discharge Diagnosis (1) Cholangitis: Status: Acute Code(s): K83.09 - Other cholangitis Plan Patient is a 73-year-old lady who presented with abdominal pain and assessment of acute cholangitis made admitted to regular nursing floor for further management. 1. Acute cholangitis ? Patient admitted to regular nursing floor. Started on broad-spectrum antibiotic therapy with meropenem. Consult was placed to general surgery Dr. Gray who consulted GI for possible ERCP. Patient cultures so far positive for gram-negative john lactose other spatial scientist awaiting final identification and sensitivities. Patient scheduled to undergo MRCP ? 08/07/2023; patient is scheduled to undergo ERCP with spyglass and lithotripsy ?08/08/2023;Patient underwent ERCP the day prior choledocholithiasis was found however removal was not attempted numerous times X8 given patient modified anatomy after her Billroth II surgery. Case discussed with Dr. Mcdowell plans for patient to be transferred to tertiary care center ? Call has been placed to [facility] awaiting acceptance and transfer -Patient was transferred once bed was obtained 2. Acute transaminitis ? Secondary to above we will monitor 3. GERD ? On PPI 4. History of epidural hematoma ? Patient has had numerous surgeries at [facility] 5.Mild hyponatremia ? Patient is on IV fluid with monitor with monitoring of electrolyte 6. Metabolic acidosis ? Secondary to patient infectious process we will monitor 7. Hypocalcemia ? Corrected per protocol repeat labs ordered for monitor 8. DVT prophylaxis ? Avoided blood thinners in view of patient history of epidural hematomas Time spent in the patient's overall evaluation,decision-making process, review of diagnostic data, adjustment of management, discussion with other providers, nursing nursing and ancillary staff involved in patient's care documentation, 32 Minutes Medications at Discharge Home Medications pantoprazole 40 mg tablet,delayed release (Protonix) 40 mg PO DAILY 05/09/21 ascorbate calcium (vitamin C) 500 mg tablet 1 g PO DAILY SUPPLEMENT 08/05/23 cyanocobalamin (vitamin B-12) 1 tab PO DAILY 08/05/23 potassium gluconate 600 mg (99 mg) tablet 600 mg PO DAILY SUPPLEMENT 08/05/23 Physical Exam Narrative GENERAL: cooperative HEENT: Atraumatic; normocephalic EYES; Anicteric, Normal Conjunctiva NECK; supple, normal thyroid, RESPIRATORY: Diminished to auscultation CARDIOVASCULAR: Regular S1 S2, GI: soft, normoactive bowel sounds, : No Renal angle tenderness; EXTREMITIES: No edema, no clubbing, MUSCULOSKELETAL: no muscle wasting NEURO: Awake; no lateralizing signs. SKIN: No Rash PSYCH; Flat affect Weight / BMI Weight Weight: 84.397 kg Body Mass Index (BMI) 29.1 ABG / Lab / Microbiology Data 08/10/23 07:58 08/10/23 07:58 Laboratory: Laboratory Results - last 24 hr 08/08/23 05:40: WBC 14.8 H, RBC 4.09 L, Hgb 12.4, Hct 36.1 L, MCV 88.3, MCH 30.3, MCHC 34.3, RDW Std Deviation 44.1 H, RDW Coeff of Bria 13.7, Plt Count 101 L, MPV 10.9, Immature Gran % (Auto) 3.500 H, Neut % (Auto) 74.2 H, Lymph % (Auto) 11.3 L, [place] % (Auto) 10.0, Eos % (Auto) 0.3, Baso % (Auto) 0.7, Absolute Neuts (auto) 11.0 H, Absolute Lymphs (auto) 1.67, Nucleated RBC % 0, Sodium 140, Potassium 3.5, Chloride 109 H, Carbon Dioxide 24.0, Anion Gap 7, BUN 11, Creatinine 0.48 L, Estim Creat Clear Calc 70.96, Est GFR (MDRD) Af Amer 163, Est GFR (MDRD) Non-Af 135, BUN/Creatinine Ratio 22.9 H, Glucose 95, Calcium 7.8 L, Total Bilirubin 14.60 H, Direct Bilirubin 11.05 H, AST 89 H, ALT 89 H, Alkaline Phosphatase 171 H, Total Protein 4.9 L, Albumin 1.8 L, Globulin 3.1 Microbiology: Microbiology 08/05/23 12:59 Blood Culture (Wb) - Anticubital Right Blood Culture - Preliminary GNR lactose other spatial scientist 08/05/23 13:26 Blood Culture (Wb) - Anticubital Right Blood Culture - Preliminary ESBL Klebsiella pneumoniae pne 08/05/23 10:36 Urine, Clean Catch Urine Culture - Final Mixed Gram Positive Organisms Radiography Diagnostic Testing: Radiology Impression MRCP 08/06/23 09:00 IMPRESSION: Intra and extrahepatic ductal dilatation secondary to choledocholithiasis. Electronically Signed: Cee Morris MD at 11:20 EST , Endo Retro Cholangiopancreatogram 08/07/23 14:40 IMPRESSION: The bile ducts and the pancreatic ducts could not be opacified. Electronically Signed: Johanne Vernon MD at 4:22 EST , D/C Instructions Discharge Diet: No restrictions Discharge Activity: Return to Normal Activity Call your doctor if you observe: Fever of 101 or Higher, Shortness of breath, Fainting spells and Chest pain Meaningful Use Info Meaningful Use Diagnoses (Choose all that apply): None applicable Discharge Plan Admission Admit Date/Time: 08/05/23 13:28 Attending Provider: Killian Montez Primary Care Provider: Mary Smith Consulting Providers: Ole Gray; Bob Antunez; Bulmaro Hudson Discharge Orders/Prescriptions Prescriptions: Continued pantoprazole [Protonix] 40 MG tablet,delayed release (DR/EC) 40 mg PO DAILY cyanocobalamin (vitamin B-12) 1 tab PO DAILY Patient Comments: PT UNSURE OF STRENGTH potassium gluconate 600 mg (99 mg) tablet 600 mg PO DAILY ascorbate calcium (vitamin C) 500 mg tablet 1 g PO DAILY Referrals / Follow Up: Shannon Hills MD [Med Staff - Family Practice Doctor] - Mary Smith DO [Primary Care Provider] - Disposition Disposition (needs filled in before D/C Order can be placed): Acute Care Hospital Charges/Coding Visit Charges Inpatient E&M: 86606 Disch Hosp >30min
[2023-08-08] MEDS: Loperamide 2 MG Capsule PO (22:13)
[2023-08-09] MEDS: 0.9% Normal Saline (1000mL) 1,000 ML 125 ML IV ×3 (02:30→16:10)
[2023-08-09 02:31] VITALS: BP 118/63; PULSE 73; RESP 16; TEMP 36.9; O2SAT 92
[2023-08-09] MEDS: Meropenem 1 GM in 0.9% Normal Saline (100mL MB+) 100 ML IV ×3 (05:40→20:26)
[2023-08-09 06:34] LABS: Hematocrit 34.4 % (37-47); Hemoglobin 11.8 g/dL (12.0-15.0); Mean Corp Hgb Conc 34.3 g/dL (32-36); Mean Corpuscular Hgb 30.2 pg (27.0-32.0); Mean Platelet Vol. 11.1 fl (6.2-12.0); POSITIVE COUNT YES; POSITIVE MORPHOLOGY YES; Platelet Count 116 K/mm3 (150-450); RBC Distribution Width CV 13.8 % (11.6-14.6); RBC Distribution Width SD 44.3 fl (35.1-43.9); Red Blood Count 3.91 M/mm3 (4.2-5.4)
[2023-08-09 06:39] LABS: Differential Indicated MANUAL DIFF
[2023-08-09 07:12] LABS: Anion Gap 9 (5-15); BUN 7 mg/dL (7-18); BUN/Creat Ratio 15.2 RATIO (10-20); Calcium,Total 7.5 mg/dL (8.5-10.1); Chloride 108 mmol/L (98-107); Creatinine, Serum 0.46 mg/dL (0.55-1.02); EST Glomerular Filtration Rate 142 mL/min (>60); Est Glom Filt Rate - Afr Amer 171 mL/min (>60); Estimated Creatinine Clearance 70.96 ml/min; Glucose 97 mg/dL (74-106); Potassium 3.4 mmol/L (3.5-5.1); Sodium Level 141 mmol/L (136-145)
[2023-08-09 07:54] VITALS: O2SAT 95
[2023-08-09 08:48] LABS: Lymphocyte 10 % (19-41); Neutrophil-Band 3 % (0-5); Neutrophil-Segmented 71 % (47-70)
[2023-08-09 08:49] LABS: Anisocytosis 2+; Hypochromasia 2+; Monocyte 10 % (0-10); Other WBC Type 6 %; Platelet Estimate ADEQUATE (ADEQ)
[2023-08-09 08:54] LABS: Absolute Neutrophil Count 9.6 X10^3/uL (2.0-7.7)
--- NOTE | 2023-08-09 08:54 | PN.HOSP_ITS ---
Reason for Visit Reason for Visit: Diagnoses Calculus of bile duct without cholangitis or cholecystitis without obstruction (08/05/23) Other cholangitis (08/05/23) Unspecified jaundice (08/05/23) Subjective Subjective Call was placed to have patient transferred to tertiary [facility]. Patient accepted for transfer currently awaiting bed Objective Data Objective Data Vital Signs: Vital Signs Temp Pulse Resp BP Pulse Ox O2 Del Method O2 Flow Rate 98.4 F 73 16 118/63 95 Room Air 2 08/09/23 02:31 08/09/23 02:31 08/09/23 02:31 08/09/23 02:31 08/09/23 07:54 08/09/23 07:54 08/07/23 18:56 Oxygen Flow Rate (L/min) 2 Oxygen Delivery Method Room Air Weight: 84.397 kg Body Mass Index (BMI) 29.1 Intake & Output: Intake and Output for Last 24 Hours 08/07/23 08/08/23 08/09/23 23:59 23:59 23:59 Intake Total 3587.08 / 3787.08 4760.00 / 4960.00 1507.5 / 1507.5 Output Total 500 / 500 Balance 3087.08 / 3287.08 4760.00 / 4960.00 1507.5 / 1507.5 Lab / Micro Data 08/09/23 05:37 08/09/23 05:37 Labs: Laboratory Results - last 24 hr 08/08/23 05:40: Total Bilirubin 14.60 H, Direct Bilirubin 11.05 H, AST 89 H, ALT 89 H, Alkaline Phosphatase 171 H, Total Protein 4.9 L, Albumin 1.8 L, Globulin 3.1 08/09/23 05:37: WBC 13.0 H, RBC 3.91 L, Hgb 11.8 L, Hct 34.4 L, MCV 88.0, MCH 30.2, MCHC 34.3, RDW Std Deviation 44.3 H, RDW Coeff of Bria 13.8, Plt Count 116 L, MPV 11.1, Neut % (Auto) Not Reportable, Absolute Neuts (auto) 2.6, Absolute Lymphs (auto) 1.90, Neutrophils % (Manual) 71 H, Band Neutrophils % 3, Lymphocytes % (Manual) 10 L, Monocytes % (Manual) 10, Other Cells % 6, Diff Path Review May foll, Platelet Estimate ADEQUATE, Hypochromasia 2+, Anisocytosis 2+, Abdulaziz Cells 13.0, Sodium 141, Potassium 3.4 L, Chloride 108 H, Carbon Dioxide 24.0, Anion Gap 9, BUN 7, Creatinine 0.46 L, Estim Creat Clear Calc 70.96, Est GFR (MDRD) Af Amer 171, Est GFR (MDRD) Non-Af 142, BUN/Creatinine Ratio 15.2, Glucose 97, Calcium 7.5 L Micro: Microbiology 08/05/23 12:59 Blood Culture (Wb) - Anticubital Right Blood Culture - Final GNR lactose automation operator 08/05/23 13:26 Blood Culture (Wb) - Anticubital Right Blood Culture - Final ESBL Klebsiella pneumoniae pne 08/05/23 10:36 Urine, Clean Catch Urine Culture - Final Mixed Gram Positive Organisms Radiography Diagnostic Testing: Radiology Impression Endo Retro Cholangiopancreatogram 08/07/23 14:40 IMPRESSION: The bile ducts and the pancreatic ducts could not be opacified. Electronically Signed: Johanne Vernon MD at 4:22 EST , Physical Exam Narrative GENERAL: cooperative HEENT: Atraumatic; normocephalic EYES; Anicteric, Normal Conjunctiva NECK; supple, normal thyroid, RESPIRATORY: Diminished to auscultation CARDIOVASCULAR: Regular S1 S2, GI: soft, normoactive bowel sounds, : No Renal angle tenderness; EXTREMITIES: No edema, no clubbing, MUSCULOSKELETAL: no muscle wasting NEURO: Awake; no lateralizing signs. SKIN: No Rash PSYCH; Flat affect Assessment & Plan Assessment/Plan (1) Cholangitis: PLAN: Plan Patient is a 73-year-old lady who presented with abdominal pain and assessment of acute cholangitis made admitted to regular nursing floor for further management. 1. Acute cholangitis ? Patient admitted to regular nursing floor. Started on broad-spectrum antibiotic therapy with meropenem. Consult was placed to general surgery Dr. Gray who consulted GI for possible ERCP. Patient cultures so far positive for gram-negative john lactose automation operator awaiting final identification and sensitivities. Patient scheduled to undergo MRCP ? 08/07/2023; patient is scheduled to undergo ERCP with spyglass and lithotripsy ?08/08/2023;Patient underwent ERCP the day prior choledocholithiasis was found however removal was not attempted numerous times X8 given patient modified anatomy after her Billroth II surgery. Case discussed with Dr. Mcdowell plans for patient to be transferred to tertiary care center ? Call has been placed to [facility] awaiting acceptance and transfer ? 08[facility]09[facility]2023[facility] 2. Acute transaminitis ? Secondary to above we will monitor 3. GERD ? On PPI 4. History of epidural hematoma ? Patient has had numerous surgeries at [facility] 5.Mild hyponatremia ? Patient is on IV fluid with monitor with monitoring of electrolyte 6. Metabolic acidosis ? Secondary to patient infectious process we will monitor 7. Hypocalcemia ? Corrected per protocol repeat labs ordered for monitor 8. DVT prophylaxis ? Avoided blood thinners in view of patient history of epidural hematomas Time spent in the patient's overall evaluation,decision-making process, review of diagnostic data, adjustment of management, discussion with other providers, nursing nursing and ancillary staff involved in patient's care documentation, 35 Minutes Charges/Coding Visit Charges Inpatient E&M: 67633 Subs Hosp L2
[2023-08-09] MEDS: Pantoprazole Sodium 40 MG Tablet PO (09:22)
[2023-08-09 10:00] VITALS: BP 120/68; PULSE 82; RESP 16; TEMP 36.4; O2SAT 98
[2023-08-09] MEDS: Potassium Chloride Oral Tablet 20 MEQ PO ×2 (11:49→16:11)
[2023-08-09 14:00] VITALS: BP 120/49; PULSE 84; RESP 14; TEMP 36.4; O2SAT 100
[2023-08-09 20:40] VITALS: BP 99/63; PULSE 78; RESP 16; TEMP 36.6; O2SAT 96
[2023-08-10] MEDS: 0.9% Normal Saline (1000mL) 1,000 ML 125 ML IV (03:27)
[2023-08-10 03:29] VITALS: BP 102/54; PULSE 80; RESP 16; TEMP 36.6; O2SAT 94
[2023-08-10] MEDS: Loperamide 2 MG Capsule PO ×2 (03:34→19:05)
[2023-08-10] MEDS: Meropenem 1 GM in 0.9% Normal Saline (100mL MB+) 100 ML IV ×2 (05:52→13:39)
--- NOTE | 2023-08-10 07:14 | PN.HOSP_ITS ---
Reason for Visit Reason for Visit: Diagnoses Calculus of bile duct without cholangitis or cholecystitis without obstruction (08/05/23) Other cholangitis (08/05/23) Unspecified jaundice (08/05/23) Subjective Subjective Transfer to [facility] still pending Objective Data Objective Data Vital Signs: Vital Signs Temp Pulse Resp BP Pulse Ox O2 Del Method O2 Flow Rate 98 F 80 16 102/54 L 94 Room Air 2 08/10/23 03:29 08/10/23 03:29 08/10/23 03:29 08/10/23 03:29 08/10/23 03:29 08/10/23 03:29 08/07/23 18:56 Oxygen Flow Rate (L/min) 2 Oxygen Delivery Method Room Air Weight: 84.397 kg Body Mass Index (BMI) 29.1 Intake & Output: Intake and Output for Last 24 Hours 08/08/23 08/09/23 08/10/23 23:59 23:59 23:59 Intake Total 4760.00 / 4960.00 3989.16 / 3989.16 842.91 / 842.91 Balance 4760.00 / 4960.00 3989.16 / 3989.16 842.91 / 842.91 Lab / Micro Data 08/09/23 05:37 08/09/23 05:37 Labs: Laboratory Results - last 24 hr 08/09/23 05:37: Absolute Neuts (auto) 9.6 H, Absolute Lymphs (auto) 1.30, Neutrophils % (Manual) 71 H, Band Neutrophils % 3, Lymphocytes % (Manual) 10 L, Monocytes % (Manual) 10, Other Cells % 6, Diff Path Review May foll, Platelet Estimate ADEQUATE, Hypochromasia 2+, Anisocytosis 2+, Abdulaziz Cells LINOTYPE OPERATOR Micro: Microbiology 08/05/23 12:59 Blood Culture (Wb) - Anticubital Right Blood Culture - Final GNR lactose inside barrel polisher 08/05/23 13:26 Blood Culture (Wb) - Anticubital Right Blood Culture - Final ESBL Klebsiella pneumoniae pne 08/05/23 10:36 Urine, Clean Catch Urine Culture - Final Mixed Gram Positive Organisms Physical Exam Narrative GENERAL: cooperative HEENT: Atraumatic; normocephalic EYES; icteric, NECK; supple, normal thyroid, RESPIRATORY: Diminished to auscultation CARDIOVASCULAR: Regular S1 S2, GI: soft, normoactive bowel sounds, : No Renal angle tenderness; EXTREMITIES: No edema, no clubbing, MUSCULOSKELETAL: no muscle wasting NEURO: Awake; no lateralizing signs. SKIN: No Rash PSYCH; Flat affect Assessment & Plan Assessment/Plan (1) Cholangitis: PLAN: Plan Patient is a 73-year-old lady who presented with abdominal pain and assessment of acute cholangitis made admitted to regular nursing floor for further management. 1. Acute cholangitis ? Patient admitted to regular nursing floor. Started on broad-spectrum antibiotic therapy with meropenem. Consult was placed to general surgery Dr. Gray who consulted GI for possible ERCP. Patient cultures so far positive for gram-negative john lactose inside barrel polisher awaiting final identification and sensitivities. Patient scheduled to undergo MRCP ? 08/07/2023; patient is scheduled to undergo ERCP with spyglass and lithotripsy ?08/08/2023;Patient underwent ERCP the day prior choledocholithiasis was found however removal was not attempted numerous times X8 given patient modified anatomy after her Billroth II surgery. Case discussed with Dr. Mcdowell plans for patient to be transferred to tertiary care center ? Call has been placed to [facility] awaiting acceptance and transfer ? 08/09/2023; transfer to [facility], pending ? 08/10/2023 no change in current management awaiting transfer to [facility] 2. Acute transaminitis ? Secondary to above we will monitor 3. GERD ? On PPI 4. History of epidural hematoma ? Patient has had numerous surgeries at [facility] 5.Mild hyponatremia ? Patient is on IV fluid with monitor with monitoring of electrolyte 6. Metabolic acidosis ? Secondary to patient infectious process we will monitor 7. Hypocalcemia ? Corrected per protocol repeat labs ordered for monitor 8. DVT prophylaxis ? Avoided blood thinners in view of patient history of epidural hematomas Time spent in the patient's overall evaluation,decision-making process, review of diagnostic data, adjustment of management, discussion with other providers, nursing nursing and ancillary staff involved in patient's care documentation, 35 Minutes Charges/Coding Visit Charges Inpatient E&M: 42282 Subs Hosp L2
--- NOTE | 2023-08-10 07:43 | NURSING ---
call placed to [facility] transfer center- aware no bed at this time, goal for transfer today.
[2023-08-10 07:45] VITALS: BP 114/70; PULSE 79; RESP 18; TEMP 36.6; O2SAT 97
[2023-08-10] MEDS: Potassium Chloride Oral Tablet 20 MEQ PO ×2 (07:50→17:34)
[2023-08-10] MEDS: Pantoprazole Sodium 40 MG Tablet PO (07:50)
[2023-08-10 08:37] LABS: Phosphorus 2.4 mg/dL (2.5-4.9)
[2023-08-10 08:42] LABS: Differential Indicated MANUAL DIFF; Hematocrit 35.1 % (37-47); Hemoglobin 11.9 g/dL (12.0-15.0); Mean Corp Hgb Conc 33.9 g/dL (32-36); Mean Corpuscular Hgb 30.4 pg (27.0-32.0); Mean Corpuscular Volume 89.8 fL (81-99); Mean Platelet Vol. 10.7 fl (6.2-12.0); POSITIVE COUNT YES; POSITIVE MORPHOLOGY YES; Platelet Count 175 K/mm3 (150-450); RBC Distribution Width CV 14.5 % (11.6-14.6); RBC Distribution Width SD 47.2 fl (35.1-43.9); Red Blood Count 3.91 M/mm3 (4.2-5.4); White Blood Count 11.5 K/mm3 (4.4-11.0)
[2023-08-10 08:45] LABS: Basophil 1 % (0-1); Eosinophil 1 % (0-5); Lymphocyte 14 % (19-41); Metamyelocyte 4 % (0-1); Monocyte 3 % (0-10); Myelocyte 5 % (0-0); Neutrophil-Segmented 72 % (47-70); Total Cells Counted 100 (MANUAL DIFF)
[2023-08-10 08:46] LABS: Platelet Estimate ADEQUATE (ADEQ)
[2023-08-10 08:47] LABS: AST(SGOT) 127 U/L (15-37); Absolute Lymphocyte Count 1.61 X10^3/uL (0.83-4.51); Absolute Neutrophil Count 8.3 X10^3/uL (2.0-7.7); Alanine Aminotransfer ALT/SGPT 94 U/L (13-56); Albumin, Serum 1.7 g/dL (3.2-5.0); Alkaline Phosphatase 235 U/L (45-117); Anion Gap 7 (5-15); BUN 4 mg/dL (7-18); BUN/Creat Ratio 7.7 RATIO (10-20); Bilirubin, Direct 13.09 mg/dL (0.00-0.30); Calcium,Total 7.8 mg/dL (8.5-10.1); Chloride 108 mmol/L (98-107); Creatinine, Serum 0.52 mg/dL (0.55-1.02); EST Glomerular Filtration Rate 124 mL/min (>60); Est Glom Filt Rate - Afr Amer 150 mL/min (>60); Estimated Creatinine Clearance 70.96 ml/min; Globulin 3.6 g/dL (2.2-4.2); Glucose 94 mg/dL (74-106); Magnesium 1.9 mg/dL (1.6-2.6); Potassium 3.4 mmol/L (3.5-5.1); Protein, Total 5.3 g/dL (6.4-8.2); Red Cell Morphology NORM C+C NORMAL (NORM C&C); Sodium Level 139 mmol/L (136-145)
[2023-08-10 08:55] LABS: Pathologist Review Reviewed
[2023-08-10 09:15] VITALS: O2SAT 96
[2023-08-10 14:00] VITALS: BP 106/51; PULSE 88; RESP 18; TEMP 36.9; O2SAT 99
[2023-08-11 00:09] VITALS: BP 138/68; PULSE 80; RESP 16; TEMP 36.7; O2SAT 98
[2023-08-14 07:55] LABS: Pathologist Review Reviewed
== END 2023-08-11 02:25 | disposition short-term general hospital (02) | DRG 445 ==
LOC: ED 13:11 → MS3 14:19
PROVIDERS: Internal Medicine Gastroenterology; Emergency Provider Emergency Medicine; PCP Family Medicine; Visit Provider Internal Medicine
PROC: 0DJ08ZZ Inspection of Upper Intestinal Tract, Via Natural or Artificial Opening Endoscopic (ICD-10-PCS; CPT 43260; principal; 2023-08-07 13:40)
DX: K80.33 Calculus of bile duct with acute cholangitis with obstruction (principal); E87.20 Acidosis, unspecified; E87.1 Hypo-osmolality and hyponatremia; R17 Unspecified jaundice; E83.51 Hypocalcemia; K21.9 Gastro-esophageal reflux disease without esophagitis; R82.81 Pyuria; Z53.09 Procedure and treatment not carried out because of other contraindication; Z88.0 Allergy status to penicillin; Z78.0 Asymptomatic menopausal state; Z87.891 Personal history of nicotine dependence; Z87.19 Personal history of other diseases of the digestive system; Z90.49 Acquired absence of other specified parts of digestive tract
CPT/HCPCS: 36415; 74177; 74181; 74330; 76000; 80048; 80053; 80076; 81001; 83690; 83735; 84100; 85025; 87040; 87077; 87086; 87088; 87186; 93005; 97802; 97803; 99283; J2185; J7030; Q9967; A4216; J0612; J2405

== ENCOUNTER 2023-08-22 12:44 | Inpatient (IN) | payer MEDICARE, OTHER, SELFPAY ==
[2023-08-22 13:03] VITALS: BMI 28.9
[2023-08-22 13:30] VITALS: PULSE 92; RESP 16; O2SAT 95
--- NOTE | 2023-08-22 13:50 | NURSING ---
Staff Development Nurse Note; Activity Asset: Sandor Cox is independent and only here till Sunday for IV's. Brooke will work on word search puzzles, read and visit with family, friends and welcomes visit from the accounting administrative assistant and therapy dog. Staff will remind her of activities and respect her right to say no.
[2023-08-22 13:53] VITALS: BP 112/53; PULSE 92; RESP 16; TEMP 36.1; O2SAT 95
--- NOTE | 2023-08-22 20:07 | PCM.HP.STD ---
[facility] - General General Date of Admission: 08/22/23 Date of Service: 08/22/23 Chief Complaint: Here for rehabilitation, intravenous antibiotics. [facility] Narrative CARLA HARRISON, is a 73 Female who presents with followin08/05/2023 [facility] blood culture grew ESBL Klebsiella Pneumoniae. Abdominal pain, jaundice, elevated liver function tests, CT consistent with cholangitis. MRCP showed choledocholithiasis. 08/08/2023 Dr. Mcdowell ERCP unsuccessful due to patient's previous Bilroth II surgery. Meropenem IV started for ESBL Klebsiella Pneumoniae bacteremia. 08/10/2023 Transfer to [facility]. 08/11/2023 Admit to [facility]. Meropenem IV continued. General surgery, Gastroenterology, Infectious disease, for cholangitis, choledocholithiasis, ESBL Klebsiella Pneumoniae bacteremia. 08/15/2023 Open common bile duct exploration with removal of stones, cholangiogram, repair of multiple ventral incisional hernias. Maintain ERIKA's to bulb suction, Maintain biliary drain. Ertapenem IV thru 08/26/2023, PICC in right upper extremity. Blood cultures negative to date x 5 days. 08/19/2023 Infectious Disease recommended Ertapenem 1gm IV daily thru 08/26/2023 via PICC for ESBL Klebseilla Pneumoniae bacteremia. 08/22/2023 Remove 1 of 2 ERIKA drains. 08/22/2023 Admit to TCU with debility, here for rehabilitation, strengthening, intravenous antibiotics, prior to discharge home alone. [facility] Medical History (Updated 08/22/23 @ 20:[address] Gopi Fox MD) Alcohol use Anemia Arthritis Back pain Brain bleed Duodenal ulcer Easy bruising Former smoker Gastric reflux GERD (gastroesophageal reflux disease) GERD (gastroesophageal reflux disease) GI bleed GI bleed History of diverticulitis History of GI bleed History of muscle spasm History of stress test Leg cramps Migraines Restless legs SDH (subdural hematoma) Seizures Wears dentures Home Medications pantoprazole 40 mg tablet,delayed release (Protonix) 40 mg PO DAILY GERD 05/09/21 [History Last Taken 08/22/23 10:00] ascorbate calcium (vitamin C) 500 mg tablet 1 g PO DAILY SUPPLEMENT 08/05/23 [History Last Taken Unknown] cyanocobalamin (vitamin B-12) 1 tab PO DAILY 08/05/23 [History Last Taken Unknown] potassium gluconate 600 mg (99 mg) tablet 600 mg PO DAILY SUPPLEMENT 08/05/23 [History Last Taken Unknown] ertapenem 1 gram solution for injection 1 g IV Q24H infection 08/22/23 [History Last Taken Unknown] Allergy/AdvReac Type Severity Reaction Status Date / Time Penicillins Allergy Rash Verified 08/05/23 08:48 prednisone Allergy Rash Verified 08/05/23 08:48 ibuprofen AdvReac Other Verified 08/05/23 08:48 Family History Mother Colon cancer Father Colon cancer Aunt Colon cancer Other Heart disease Surgical History (Updated 08/22/23 @ 20:[address] Gopi Fox MD) History of cholecystectomy History of common bile duct surgery History of incisional hernia repair Hx of colonoscopy Hx of esophagogastroduodenoscopy S/P tubal ligation S/P wrist surgery Status post craniotomy Social History (Updated 08/22/23 @ 20:[address] Gopi Fox MD) household members: none Smoking Status: Former smoker alcohol intake: never substance use type: does not use ROS Constitutional Constitutional: Denies chills, fever(s) or weight gain ENT HEENT: Denies headache(s), nasal congestion or nasal discharge Cardiovascular Cardiovascular: Denies chest pain or palpitations Respiratory/Chest Respiratory/Chest: Denies cough, excessive phlegm production or shortness of breath with exertion Gastrointestinal Gastrointestinal: Denies abdominal pain, nausea or vomiting Genitourinary Genitourinary: Denies dysuria Musculoskeletal Musculoskeletal: Denies joint pain or joint swelling Integumentary Integumentary: Denies rash or wounds Neurologic Neurologic: Denies focal weakness, numbness or tingling Psychiatric Psychiatric: Denies anxiety, auditory hallucinations, depression, homicidal ideation or suicidal ideation Vital Signs Vital Signs Vital Signs: 08/22/23 13:30 08/22/23 13:53 Temperature 96.9 F L Temperature Source Temporal Pulse Rate 92 92 Pulse Rhythm Irregular Pulse Strength Normal (2+) Respiratory Rate 16 16 Respiratory Effort Normal Non-Labored Respiratory Depth Normal Respiratory Pattern Normal Blood Pressure 112/53 L Blood Pressure Mean 72 Blood Pressure Source Monitor Blood Pressure Position Sitting Blood Pressure Location Left Arm Pulse Ox 95 95 Oxygen Delivery Method Room Air Room Air Weight Weight: 83.733 kg Body Mass Index (BMI) 28.9 Physical Exam Const alert General Appearance: cooperative HEENT normocephalic Eyes PERRL and EOMs intact bilaterally Neck supple, no JVD and no carotid bruits Resp normal respiratory effort, normal air movement and clear to auscultation bilaterally Cardio regular rate and regular rhythm GI normal to inspection, nondistended, normoactive bowel sounds, non-tender and non-distended GI Narrative: Midline incision yao clean, dry, intact. Right upper quadrant biliary drain capped. Left lower quadrant ERIKA drain, serosanguineous fluid in bulb. Extremity normal capillary refill Extremity Narrative: PICC right upper extremity. General Extremity: Negative for edema Skin no rashes or lesions noted General Skin Exam: no breakdown Psych affect normal Appearance: appropriate Assessment & Plan Assessment/Plan (1) Debility: (2) Cholangitis: (3) Choledocholithiasis: (4) Bacteremia: (5) GERD (gastroesophageal reflux disease): (6) Hypokalemia: (7) SDH (subdural hematoma): PLAN: Plan 73 year old female with below past medical history hospitalized for cholangitis, choledocholithiasis, ESBL K. Pneumoniae bacteremia, ERCP unsuccessful, underwent op common bile duct exploration with stone removal incisional hernia repair 08/15/2023, admitted to TCU with debility, here for rehabilitation, strengthening, intravenous antibiotics, prior to discharge home alone. Debility - PT/OT. Pain - Tylenol 1000mg q6 prn pain (1-10). Bowel - senna/colace 1 tablet bid prn, Magnesium citrate 300ml daily prn. Adult immunization - Administer pneumonia vaccine, covid vaccine, flu vaccine as appropriate. DVT prophylaxis - Hold, resident able to ambulate with assistance. ESBL K. Pneumoniae bacteremia - Ertapenem 1gm iv q24 thru 08/26/2023. GERD - Pantoprazole 40mg daily.
--- NOTE | 2023-08-23 04:45 | NURSING ---
Written communication left for Dr. Fox regarding current home med list and discharge med list from acute hospital not listing several home supplements, requesting if Dr. Fox would like home supplements added to mar during TCU stay.
[2023-08-23 05:56] LABS: Absolute Lymphocyte Count 1.66 X10^3/uL (0.83-4.51); Absolute Neutrophil Count 6.2 X10^3/uL (2.0-7.7); Basophil# 0.05 X10^3/uL; Basophil% 0.5 % (0-1); Eosinophil# 0.31 X10^3/uL; Eosinophils% 3.4 % (0-5); Hemoglobin 10.3 g/dL (12.0-15.0); Lymphocyte # 1.66 X10^3/ul (0.83-4.51); Mean Corp Hgb Conc 31.2 g/dL (32-36); Mean Corpuscular Hgb 30.2 pg (27.0-32.0); Mean Corpuscular Volume 96.8 fL (81-99); Mean Platelet Vol. 10.1 fl (6.2-12.0); Monocyte# 0.97 X10^3/uL; Monocyte% 10.5 % (0-10); NRBC Flagged by Analyzer 0 % (0-5); Neutrophil # 6.17 X10^3/uL (2.7-7.7); Neutrophil % 67.1 % (47-70); Platelet Count 289 K/mm3 (150-450); RBC Distribution Width CV 15.7 % (11.6-14.6); RBC Distribution Width SD 55.8 fl (35.1-43.9); Red Blood Count 3.41 M/mm3 (4.2-5.4); White Blood Count 9.2 K/mm3 (4.4-11.0)
[2023-08-23 06:20] LABS: Anion Gap 6 (5-15); BUN 10 mg/dL (7-18); BUN/Creat Ratio 16.4 RATIO (10-20); Calcium,Total 8.2 mg/dL (8.5-10.1); Chloride 107 mmol/L (98-107); Creatinine, Serum 0.61 mg/dL (0.55-1.02); EST Glomerular Filtration Rate 102 mL/min (>60); Est Glom Filt Rate - Afr Amer 124 mL/min (>60); Glucose 101 mg/dL (74-106); Potassium 4.3 mmol/L (3.5-5.1); Sodium Level 141 mmol/L (136-145)
[2023-08-23] MEDS: Ascorbic Acid 500 MG Tablet PO (10:05)
[2023-08-23] MEDS: Pantoprazole Sodium 40 MG Tablet PO (10:05)
[2023-08-23] MEDS: Iron Polysaccharide Complex 150 MG CAPSULE PO (10:05)
[2023-08-23] MEDS: Tuberculin,Purif.prot.deriv. 50 TU/ML Vial 0.1 ML ID (10:42)
[2023-08-23] MEDS: Ertapenem Sod 1 GM in 0.9% Normal Saline (50mL MB+) 50 ML IV (11:00)
[2023-08-23] MEDS: 0.9% Normal Saline (250mL Bag) 250 ML 15 ML IV (11:56)
[2023-08-23] MEDS: 0.9 % NaCl (Sterile) Posiflush 10 mL IV (11:56)
--- NOTE | 2023-08-23 12:01 | PHA.CONS_ITS ---
TCU RX Drug Regimen Review Subjective/Objective Subjective/Objective: Subjective: 73 YOF admitted to TCU on 08/22/23 s/p hospitalization for ESBL bacteremia. Patient hospitalized at outside facility, cultures showed ESBL Klebsiella pneumoniae, sensitive to ertapenem. Admitted to TCU for IV antibiotic s, rehabilitation and strengthening prior to discharge home where she resides alone. Objective: Allergies Penicillins Allergy (Verified 08/05/23 08:48) Rash prednisone Allergy (Verified 08/05/23 08:48) Rash ibuprofen Adverse Reaction (Verified 08/05/23 08:48) Other Current Medications Generic Name Dose Route Start Last Admin Trade Name Freq PRN Reason Stop Dose Admin Acetaminophen 1,000 mg 08/22/23 17:41 Acetaminophen 500 Mg Tablet PO Q6H PRN PRN Pain Score 1-10 Ascorbic Acid 500 mg 08/23/23 10:00 08/23/23 10:05 Ascorbic Acid 500 Mg Tablet PO 500 mg DAILY@1000 JACQUELINE Administration Ertapenem 1 gm/ Sodium 60 mls @ 100 mls/hr 08/23/23 10:00 08/23/23 11:55 Chloride IV 08/26/23 10:01 Infused Q24 JACQUELINE Infusion Sodium Chloride 250 mls @ 15 mls/hr 08/23/23 10:28 08/23/23 11:56 IV 15 mls/hr .[id number] PRN Administration Additional IVPB Infusion Sodium Chloride 250 mls @ 15 mls/hr 08/23/23 10:28 IV .[id number] PRN Saline Flush Magnesium Citrate 300 ml 08/22/23 20:23 Magnesium Citrate 300 Ml PO DAILY PRN Constipation Pantoprazole Sodium 40 mg 08/23/23 10:00 08/23/23 10:05 Pantoprazole Sodium 40 Mg Tablet PO 40 mg DAILY JACQUELINE Administration Polysaccharide Iron Complex 150 mg 08/23/23 10:00 08/23/23 10:05 Iron Polysaccharide Complex 150 Mg Capsule PO 150 mg DAILY JACQUELINE Administration Senna/Docusate Sodium 1 tablet 08/22/23 20:23 Senna/Docusate Sodium 1 Tablet PO BID PRN CONSTIPATION Sodium Chloride 10 - 40 ml 08/23/23 11:14 08/23/23 11:56 0.9 % Nacl (Sterile) Posiflush 10 Ml IV 20 ml UD PRN Administration Port access or dressing change Sodium Chloride 10 - 40 ml 08/23/23 11:14 0.9% Saline Lock 10 Ml Syringe IV UD PRN Midline Flush Tuberculin PPD 0.1 ml 08/30/23 10:00 Tuberculin,Purif.Prot.Deriv. 50 Tu/Ml Vial ID 08/30/23 10:01 X1 ONE Problem List (Updated 08/22/23 @ 20:[address] Gopi Fox MD) SDH (subdural hematoma) (Acute) Hypokalemia (Acute) GERD (gastroesophageal reflux disease) (Acute) Bacteremia (Acute) Debility (Acute) Cholangitis (Acute) Choledocholithiasis (Acute) Vital Signs Temp Pulse Resp BP Pulse Ox O2 Del Method 96.9 F L 92 16 112/53 L 95 Room Air 08/22/23 13:53 08/22/23 13:53 08/22/23 13:53 08/22/23 13:53 08/22/23 13:53 08/22/23 13:53 Oxygen Delivery Method Room Air Weight: 83.733 kg Body Mass Index (BMI) 28.9 Sodium 141 mmol/L (136-145) 08/23/23 05:21 Potassium 4.3 mmol/L (3.5-5.1) 08/23/23 05:21 Chloride 107 mmol/L (98-107) 08/23/23 05:21 Carbon Dioxide 28.0 mmol/L (21.0-32.0) 08/23/23 05:21 Anion Gap 6 (5-15) 08/23/23 05:21 BUN 10 mg/dL (7-18) 08/23/23 05:21 Creatinine 0.61 mg/dL (0.55-1.02) 08/23/23 05:21 Est GFR (MDRD) Af Amer 124 mL/min (>60) 08/23/23 05:21 Est GFR (MDRD) Non-Af 102 mL/min (>60) 08/23/23 05:21 BUN/Creatinine Ratio 16.4 RATIO (10-20) 08/23/23 05:21 Glucose 101 mg/dL (74-106) 08/23/23 05:21 Assessment/Plan: 1. Pain: Tylenol 1000mg PO Q6h PRN Pain 1-10. Please continue to monitor for S/S increased/decreased pain, PRN medication use. - to date, the patient has not required any PRN medication doses. 2. ESBL bacteremia: Invanz 1g IV Q24hr thru 08/26/23. Please continue to monitor for resolution of infection, WBC (9.2 on 08/22), microbiology data if clinically indicated, fevers (last 96.9). 3. GERD: Protonix 40mg PO daily. Please continue to monitor for headache, stomach upset, S/S GERD exacerbation. Please also encourage non-pharmacologic treatments to help minimize GERD flare-ups. 4. Iron deficiency: Ferrex 150mg PO daily, vitamin C 500mg PO daily. Please continue to monitor H/H(hgb 10.3,hct 33 on 08/22), S/S bleeding/bruising. 5. Bowel: Senna/Docusate 1 tab PO BID PRN, Magnesium Citrate 300mL PO Daily PRN. Please continue to monitor for increased/decreased constipation and/or diarrhea. - The patient has not had a BM since admission. If no BM in the next 48hrs, please consider administering PRN medications to help facilitate a bowel movement. Assessment/Plan for indications treated with psychotropic medications: The patient is not being maintained on psychotropic medications at time of medication review. Medical chart and medication regimen reviewed. The following medication irregularities or issues were identified: No irregularities were identified at time of medication review. Date Date of Note:: 08/23/23
[2023-08-23 14:16] VITALS: BP 111/57; PULSE 84; RESP 16; TEMP 36.8; O2SAT 93
[2023-08-23] MEDS: Baclofen 10 MG Tablet PO (20:25)
[2023-08-24] MEDS: Baclofen 10 MG Tablet PO ×3 (06:04→22:29)
[2023-08-24] MEDS: Ascorbic Acid 500 MG Tablet PO (08:59)
[2023-08-24] MEDS: Pantoprazole Sodium 40 MG Tablet PO (08:59)
[2023-08-24] MEDS: Iron Polysaccharide Complex 150 MG CAPSULE PO (08:59)
[2023-08-24] MEDS: Ertapenem Sod 1 GM in 0.9% Normal Saline (50mL MB+) 50 ML IV (09:11)
[2023-08-24] MEDS: 0.9% Normal Saline (250mL Bag) 250 ML 15 ML IV (09:12)
[2023-08-24 13:11] VITALS: BP 102/49; PULSE 86; RESP 18; TEMP 36.1; O2SAT 95
--- NOTE | 2023-08-24 13:20 | RAD_ITS ---
STUDY: X-RAY - ABDOMEN/PELVIS REASON FOR EXAM: Female, 73 years old. Nausea/vomiting. TECHNIQUE: KUB COMPARISON: December 06, 2019 FINDINGS: Normal visualized lung bases. There is an unremarkable bowel gas pattern. There is no demonstrated free abdominal air. The visualized liver, spleen and kidneys are grossly normal in size and morphology. Postop change status post midline laparotomy. There is a drain on the right side projecting over the mid abdomen as well as a catheter on the left with the tip in the midline. Postop changes status post bilateral tubal ligation. Calcific density in the right midabdomen most likely representing renal calculus or stone in a low lying gallbladder. There are also calcifications on the left mid abdomen and lower pelvis with concern for ureteral calculus CT recommended . Lumbar spine demonstrates degenerative changes. RAD/Abdomen Single View IMPRESSION: Nonspecific abdomen with postsurgical changes as above Electronically Signed: Henrique Carlson MD at 17:07 EDT ,
[2023-08-24 13:40] LABS: Absolute Lymphocyte Count 2.08 X10^3/uL (0.83-4.51); Absolute Neutrophil Count 6.2 X10^3/uL (2.0-7.7); Basophil# 0.03 X10^3/uL; Basophil% 0.3 % (0-1); Eosinophil# 0.35 X10^3/uL; Eosinophils% 3.7 % (0-5); Hematocrit 35.6 % (37-47); Hemoglobin 11.1 g/dL (12.0-15.0); Lymphocyte # 2.08 X10^3/ul (0.83-4.51); Lymphocyte % 21.9 % (19-41); Mean Corp Hgb Conc 31.2 g/dL (32-36); Mean Corpuscular Hgb 30.2 pg (27.0-32.0); Mean Platelet Vol. 10.5 fl (6.2-12.0); Monocyte# 0.81 X10^3/uL; Monocyte% 8.5 % (0-10); NRBC Flagged by Analyzer 0 % (0-5); Neutrophil # 6.18 X10^3/uL (2.7-7.7); Neutrophil % 65.1 % (47-70); POSITIVE COUNT YES; RBC Distribution Width CV 15.3 % (11.6-14.6); RBC Distribution Width SD 54.8 fl (35.1-43.9); Red Blood Count 3.67 M/mm3 (4.2-5.4); White Blood Count 9.5 K/mm3 (4.4-11.0)
[2023-08-24 13:59] LABS: ALB/GLOB Ratio 0.5 RATIO (0.9-2.4); AST(SGOT) 51 U/L (15-37); Alanine Aminotransfer ALT/SGPT 56 U/L (13-56); Albumin, Serum 2.1 g/dL (3.2-5.0); Alkaline Phosphatase 145 U/L (45-117); Anion Gap 6 (5-15); BUN 8 mg/dL (7-18); BUN/Creat Ratio 13.9 RATIO (10-20); Calcium,Total 8.4 mg/dL (8.5-10.1); Chloride 108 mmol/L (98-107); Creatinine, Serum 0.58 mg/dL (0.55-1.02); EST Glomerular Filtration Rate 109 mL/min (>60); Est Glom Filt Rate - Afr Amer 132 mL/min (>60); Globulin 4.5 g/dL (2.2-4.2); Glucose 116 mg/dL (74-106); Potassium 4.1 mmol/L (3.5-5.1); Protein, Total 6.6 g/dL (6.4-8.2); Sodium Level 140 mmol/L (136-145)
[2023-08-24 14:20] LABS: Differential Indicated SCAN CRITERIA MET
[2023-08-24 14:21] LABS: Platelet Estimate ADEQUATE (ADEQ)
[2023-08-24 14:24] LABS: Mucous, Urine 0 SEEN /hpf (<or=2+); Squamous Epithelial Cells - UA 0 SEEN /hpf (5-10)
[2023-08-24 15:45] LABS: Color, Urine Yellow (Yellow); Glucose, Dipstick Normal (Normal); Ketone-Dipstick 5 mg/dl (Negative); Leukocyte Esterase-Dipstick 25 /ul (Negative); Nitrite-Dipstick Positive (Negative); Occult Blood-Urine 250 /ul (Negative); Protein-Dipstick 30 mg/dl (Negative); Urine Clarity Cloudy (Clear); Urine Urobilinogen 1 mg/dl (Normal)
[2023-08-24 15:51] LABS: Urine Bilirubin Dipstick 1 mg/dL (Negative)
--- NOTE | 2023-08-24 16:04 | CHAPLAIN ---
Type of Pastoral Visit ___ Initial Visit ___ Follow-up Visit ___ On-call Visit ___ General Patient Visit ___ Spiritual Assessment ___ Family Conference ___ Bereavement ___ Rapid Response ___ Code Blue ___ Other (describe below) Pastoral Care Referral From ___ Patient ___ Family ___ Nurse ___ Physician ___ Optical Instrument Assembler ___ Edger Feeder ___ Other (describe below) Sacrament/Intervention ___ Active listening ___ Anointing ___ Amish ___ Bereavement ___ Communion ___ Carol exploration ___ ___ Life review ___ Prayer ___ Reconciliation ___ Sacrament of Sick ___ Supportive presence ___ Wedding ___ Other (describe below) Pastoral Comments patient was out of the room at time of attempted visit
[2023-08-24 16:25] LABS: Red Blood Cells-Urine > 100 SEEN /hpf (0-5)
[2023-08-24 16:26] LABS: Bacteria RARE /hpf (None Seen); Calcium Oxalate Crystals Ur RARE /hpf (<or=2+); White Blood Cells 0-5 SEEN /hpf (0-5)
--- NOTE | 2023-08-24 16:29 | CASEMGMT ---
Social Work Multiple attempts to complete initial assessment with pt. Unsuccessful. Will continue to attempt. Sandy Kenny ,[employer] MANAGER
--- NOTE | 2023-08-24 18:00 | NURSING ---
dr harp updated on UA results & another emesis this evening, new order for cipro 500mg BID x7 days, run NS @ 75ml hour.
[2023-08-24] MEDS: 0.9% Normal Saline (1000mL) 1,000 ML 75 ML IV (18:22)
[2023-08-24] MEDS: Ciprofloxacin 500 MG Tablet PO (18:26)
[2023-08-25] MEDS: Baclofen 10 MG Tablet PO ×3 (05:16→22:28)
[2023-08-25] MEDS: 0.9% Normal Saline (1000mL) 1,000 ML 75 ML IV ×2 (06:56→22:28)
[2023-08-25] MEDS: 0.9% Saline Lock 10 ML Syringe IV ×2 (06:56→10:35)
[2023-08-25 07:07] LABS: Hematocrit 33.5 % (37-47); Hemoglobin 10.5 g/dL (12.0-15.0)
[2023-08-25] MEDS: Iron Polysaccharide Complex 150 MG CAPSULE PO (09:33)
[2023-08-25] MEDS: Pantoprazole Sodium 40 MG Tablet PO (09:33)
[2023-08-25] MEDS: Ascorbic Acid 500 MG Tablet PO (09:33)
[2023-08-25] MEDS: Ciprofloxacin 500 MG Tablet PO ×2 (09:33→22:28)
[2023-08-25] MEDS: Ertapenem Sod 1 GM in 0.9% Normal Saline (50mL MB+) 50 ML IV (09:42)
--- NOTE | 2023-08-25 10:17 | NURSING ---
dr harp ordered CT scan of abdomen/pelvis no contrast per stone protocol. order faxed to CT dept. pt updated. pt sitting in lobby reading paper at this time.
[2023-08-25 12:55] VITALS: PULSE 85; RESP 18; O2SAT 94
[2023-08-25 14:35] VITALS: BP 96/44; PULSE 83; RESP 16; TEMP 37.1; O2SAT 97
[2023-08-25 14:45] VITALS: BP 110/64
[2023-08-26] MEDS: Baclofen 10 MG Tablet PO ×3 (05:50→20:57)
[2023-08-26] MEDS: Iron Polysaccharide Complex 150 MG CAPSULE PO (09:42)
[2023-08-26] MEDS: Ciprofloxacin 500 MG Tablet PO ×2 (09:42→20:57)
[2023-08-26] MEDS: Pantoprazole Sodium 40 MG Tablet PO (09:42)
[2023-08-26] MEDS: Ascorbic Acid 500 MG Tablet PO (09:43)
[2023-08-26 10:06] VITALS: PULSE 82; RESP 16; O2SAT 98
[2023-08-26] MEDS: Ertapenem Sod 1 GM in 0.9% Normal Saline (50mL MB+) 50 ML IV (10:43)
[2023-08-26] MEDS: 0.9% Saline Lock 10 ML Syringe IV (11:23)
[2023-08-26] MEDS: Acetaminophen 500 MG Tablet 1000 MG PO (11:32)
[2023-08-26] MEDS: 0.9% Normal Saline (1000mL) 1,000 ML 75 ML IV ×2 (11:59→22:43)
--- NOTE | 2023-08-26 13:09 | NURSING ---
Pt stated earlier that she had pain in left abd side, PRN Tylenol given per request, hour and half later pt threw up partially digested breakfast and lunch, 800cc. Pt denies any pain or nausea, states feels better.
[2023-08-26 14:41] VITALS: BP 111/57; PULSE 86; RESP 16; TEMP 36.4; O2SAT 97
[2023-08-27] MEDS: Baclofen 10 MG Tablet PO ×3 (05:29→21:43)
[2023-08-27 08:19] VITALS: BP 103/42; PULSE 77; RESP 18; O2SAT 97
[2023-08-27] MEDS: Iron Polysaccharide Complex 150 MG CAPSULE PO (08:21)
[2023-08-27] MEDS: Pantoprazole Sodium 40 MG Tablet PO (08:21)
[2023-08-27] MEDS: Ascorbic Acid 500 MG Tablet PO (08:21)
[2023-08-27] MEDS: Ciprofloxacin 500 MG Tablet PO (08:22)
--- NOTE | 2023-08-27 08:41 | NURSING ---
Offered covid vaccine, VIS provided. Refused at this time. Will think about it and let RN know if she decides to take.
[2023-08-27] MEDS: 0.9% Saline Lock 10 ML Syringe IV (13:53)
[2023-08-27 14:17] VITALS: TEMP 36.2
--- NOTE | 2023-08-27 15:57 | CASEMGMT ---
Social Work Met with pt to complete initial assessment. Introduced self and role. Verified contacts. Patient confirmed code status as full code. Pt stated she does have DPOAHC and Living Will papers but they are at home. This worker educated patient to give copy to hospital to have on record. Educated to Medicare benefits and co-pay coverage. Pt stated she is feeling ready to return home to independent living arrangements and feels she can medically take care of her drains. Would like to go home before her doctors appt in [place] at end of week. This worker notified nursing teacher of patients requests to return home and comfort with wound care and drains. Nurse Senior Insight Manager to follow up with Dr. Fox on pt. request. SW will continue to follow for DC planning. BIMS () PHQ-2 () completed for MDS Assessment. Manuela BECKETT
[2023-08-27 19:30] VITALS: BP 127/52; PULSE 90; RESP 20; TEMP 36.9; O2SAT 94
[2023-08-27] MEDS: Ondansetron ODT 4 MG Tablet 8 MG PO (19:31)
[2023-08-27] MEDS: Acetaminophen 500 MG Tablet 1000 MG PO (21:43)
--- NOTE | 2023-08-27 23:32 | NURSING ---
Pt had 2 episodes of emesis this shift. Emesis appears to be undigested food. PRN Zofran administered as ordered. Pt is also complaining of sharp left lower quadrant pain. PRN Tylenol given. Pt resting upon reassessment of pain. Written communication left for Dr. Fox.
[2023-08-28] MEDS: Baclofen 10 MG Tablet PO ×3 (06:00→20:56)
[2023-08-28 08:23] LABS: Absolute Lymphocyte Count 1.72 X10^3/uL (0.83-4.51); Absolute Neutrophil Count 11.2 X10^3/uL (2.0-7.7); Basophil# 0.04 X10^3/uL; Basophil% 0.3 % (0-1); Eosinophil# 0.19 X10^3/uL; Eosinophils% 1.3 % (0-5); Hematocrit 34.7 % (37-47); Lymphocyte # 1.72 X10^3/ul (0.83-4.51); Lymphocyte % 11.8 % (19-41); Mean Corp Hgb Conc 31.7 g/dL (32-36); Mean Corpuscular Hgb 30.3 pg (27.0-32.0); Mean Corpuscular Volume 95.6 fL (81-99); Mean Platelet Vol. 9.9 fl (6.2-12.0); Monocyte# 1.36 X10^3/uL; Monocyte% 9.3 % (0-10); NRBC Flagged by Analyzer 0 % (0-5); Neutrophil # 11.21 X10^3/uL (2.7-7.7); Neutrophil % 76.6 % (47-70); Platelet Count 244 K/mm3 (150-450); RBC Distribution Width CV 15.1 % (11.6-14.6); RBC Distribution Width SD 52.7 fl (35.1-43.9); Red Blood Count 3.63 M/mm3 (4.2-5.4); White Blood Count 14.6 K/mm3 (4.4-11.0)
[2023-08-28 08:43] LABS: ALB/GLOB Ratio 0.5 RATIO (0.9-2.4); AST(SGOT) 26 U/L (15-37); Alanine Aminotransfer ALT/SGPT 30 U/L (13-56); Albumin, Serum 1.9 g/dL (3.2-5.0); Alkaline Phosphatase 103 U/L (45-117); Amylase 66 U/L (25-115); Anion Gap 8 (5-15); BUN 9 mg/dL (7-18); BUN/Creat Ratio 9.4 RATIO (10-20); Calcium,Total 8.2 mg/dL (8.5-10.1); Chloride 106 mmol/L (98-107); Creatinine, Serum 0.95 mg/dL (0.55-1.02); EST Glomerular Filtration Rate 61 mL/min (>60); Est Glom Filt Rate - Afr Amer 74 mL/min (>60); Estimated Creatinine Clearance 59.54 ml/min; Globulin 4.1 g/dL (2.2-4.2); Glucose 117 mg/dL (74-106); Lipase 38 U/L (13-75); Sodium Level 141 mmol/L (136-145)
[2023-08-28] MEDS: Pantoprazole Sodium 40 MG Tablet PO (09:14)
[2023-08-28] MEDS: Iron Polysaccharide Complex 150 MG CAPSULE PO (09:14)
[2023-08-28] MEDS: Ascorbic Acid 500 MG Tablet PO (09:14)
--- NOTE | 2023-08-28 09:39 | NURSING ---
Addendum entered by Susana Bearden 08/28/23 10:25: Dr. Jamil unable to see patient. Consulted Dr. Merchant. Addendum entered by Susana Bearden 08/28/23 09:46: Spoke with Dr. Jamil's staff. They will let RN know if she is unable to come by and see patient today. Original Note: Dr. Fox aware of elevated WBC and labs drawn today. Order to consult Dr. Merchant if Dr. Jamil unavailable.
[2023-08-28 09:43] VITALS: BMI 29.0
[2023-08-28 10:00] VITALS: BP 113/54; PULSE 68; PULSE 78; RESP 18; TEMP 37.1; O2SAT 94
--- NOTE | 2023-08-28 10:19 | NURSING ---
Beebto Sapp at surgery office of patient symptoms and CT scan. Scan and labs faxed over, they will get to Dr. Michelle and call if any new orders before appt on Sunday. .
--- NOTE | 2023-08-28 11:43 | CON.PCM.UR_ITS ---
Assessment & Plan Assessment/Plan (1) Left renal stone: PLAN: plan to proceed with a cystoscopy and left stent placement obstructing stone HPI Consult Data Date of Consult: 08/28/23 HPI Narrative Reason for Consultation: left kidney stone. HPI Narrative: CARLA HARRISON, is a 73 F who presents and transitional care unit recovering, recent CT scan was done at demonstrated the stone in the proximal left ureter with left hydronephrosis. Will will place the patient is scheduled for tomorrow for cystoscopy left stent placement [facility] Medical History Alcohol use Anemia Arthritis Back pain Brain bleed Duodenal ulcer Easy bruising Former smoker Gastric reflux GERD (gastroesophageal reflux disease) GERD (gastroesophageal reflux disease) GI bleed GI bleed History of diverticulitis History of GI bleed History of muscle spasm History of stress test Leg cramps Migraines Restless legs SDH (subdural hematoma) Seizures Wears dentures Home Medications pantoprazole 40 mg tablet,delayed release (Protonix) 40 mg PO DAILY GERD 05/09/21 [History Last Taken 08/22/23 10:00] ascorbate calcium (vitamin C) 500 mg tablet 1 g PO DAILY SUPPLEMENT 08/05/23 [History Last Taken Unknown] cyanocobalamin (vitamin B-12) 1 tab PO DAILY 08/05/23 [History Last Taken Unknown] potassium gluconate 600 mg (99 mg) tablet 600 mg PO DAILY SUPPLEMENT 08/05/23 [History Last Taken Unknown] ertapenem 1 gram solution for injection 1 g IV Q24H infection 08/22/23 [History Last Taken Unknown] Allergy/AdvReac Type Severity Reaction Status Date / Time Penicillins Allergy Rash Verified 08/05/23 08:48 prednisone Allergy Rash Verified 08/05/23 08:48 ibuprofen AdvReac Other Verified 08/05/23 08:48 Family History Mother Colon cancer Father Colon cancer Aunt Colon cancer Other Heart disease Surgical History History of cholecystectomy History of common bile duct surgery History of incisional hernia repair Hx of colonoscopy Hx of esophagogastroduodenoscopy S/P tubal ligation S/P wrist surgery Status post craniotomy Social History household members: none Smoking Status: Former smoker alcohol intake: never substance use type: does not use ROS Constitutional Constitutional: Denies chills, fever(s) or malaise Eyes Eyes: Denies blurry vision or change in vision ENT HEENT: Reports none Cardiovascular Cardiovascular: Denies chest pain or palpitations Respiratory/Chest Respiratory/Chest: Denies cough or shortness of breath with exertion Gastrointestinal Gastrointestinal: Denies abdominal pain, constipation or diarrhea Musculoskeletal Musculoskeletal: Denies back pain, joint stiffness or joint swelling Integumentary Integumentary: Denies dry skin, jaundice, lesions or rash Neurologic Neurologic: Denies confusion, syncope or weakness Psychiatric Psychiatric: Reports none; Denies anxiety or depression Endocrine Endocrinology: Denies excessive sweating, fatigue or flushing Hematologic/Lymphatic Hematologic/Lymphatic: Denies anemia, easy bleeding or easy bruising Physical Exam Const alert and oriented x3 General Appearance: cooperative HEENT normocephalic, head/scalp atraumatic, EAC's normal and TM's normal bilaterally Eyes PERRL and EOMs intact bilaterally Pupil: sluggish Neck no lymphadenopathy, supple and no JVD General: trachea midline Lymph Lymphatic: no lymphadenopathy noted, lymphedema and lymphadenopathy Resp normal respiratory effort, normal air movement and clear to auscultation bilaterally Cardio regular rate, regular rhythm and peripheral pulses 2+ throughout GI soft to palpation, non-tender and non-distended Extremity normal capillary refill and no clubbing, cyanosis or edema General Extremity: no tenderness to palpation of joints or extremities Skin no rashes or lesions noted General Skin Exam: turgor normal Lesions: no lesions Rashes: no rashes Neuro CN's II-XII intact bilaterally Speech: speech normal Motor Exam: strength 5/5 throughout; Negative for general weakness Psych thought process normal, cooperative and affect normal Appearance: appropriate Lab / Micro Data 08/28/23 08:17 08/28/23 08:17 Labs: Laboratory Results - last 24 hr 08/28/23 08:17: WBC 14.6 H, RBC 3.63 L, Hgb 11.0 L, Hct 34.7 L, MCV 95.6, MCH 30.3, MCHC 31.7 L, RDW Std Deviation 52.7 H, RDW Coeff of Bria 15.1 H, Plt Count 244, MPV 9.9, Immature Gran % (Auto) 0.700, Neut % (Auto) 76.6 H, Lymph % (Auto) 11.8 L, [place] % (Auto) 9.3, Eos % (Auto) 1.3, Baso % (Auto) 0.3, Absolute Neuts (auto) 11.2 H, Absolute Lymphs (auto) 1.72, Nucleated RBC % 0, Sodium 141, Potassium 4.0, Chloride 106, Carbon Dioxide 27.0, Anion Gap 8, BUN 9, Creatinine 0.95, Estim Creat Clear Calc 59.54, Est GFR (MDRD) Af Amer 74, Est GFR (MDRD) Non-Af 61, BUN/Creatinine Ratio 9.4 L, Glucose 117 H, Calcium 8.2 L, Total Bilirubin 1.80 H, AST 26, ALT 30, Alkaline Phosphatase 103, Total Protein 6.0 L, Albumin 1.9 L, Globulin 4.1, Albumin/Globulin Ratio 0.5 L, Amylase 66, Lipase 38
--- NOTE | 2023-08-28 13:42 | NURSING ---
Addendum entered by Susana Bearden 08/28/23 15:15: Patient is an add-on tomorrow at 4pm. Patient and daughter aware. Original Note: Call from Quin in pre-op: for surgery patient to wash tonight and tomorrow morning with chlorhexidine wipes. Morning of surgery, ONLY take protonix. Ok to have water/black coffee/Gatorade until 4hrs before surgery.
--- NOTE | 2023-08-28 14:48 | CASEMGMT ---
Social Work Pt requesting to DC home. JOHNY spoke with Dr. Fox and he wants pt to remain to get kidney stones cleared. Procedure scheduled 08/28. Pt also has f/u appt with Dr morenita Smith on 08/30 for pt's wound progress and drains that Dr. Fox wants pt to attend prior to DC. JOHNY spoke with pt and dtr at bedside. Pt confirmed request to DC home. JOHNY educated to above from . JOHNY offered to set DC for 09/02, if all appts go well. Pt and dtr agreeable. If things have changed from appts, SW to f/u with pt on 09/02 AM. Pt denied any therapy or DME needs at DC. Plan: DC home alone 09/02, no needs YENNI CruzW
--- NOTE | 2023-08-28 15:12 | CHAPLAIN ---
Type of Pastoral Visit _x__ Initial Visit ___ Follow-up Visit ___ On-call Visit ___ General Patient Visit ___ Spiritual Assessment ___ Family Conference ___ Bereavement ___ Rapid Response ___ Code Blue ___ Other (describe below) Pastoral Care Referral From _x__ Patient ___ Family ___ Nurse ___ Physician ___ Parakeet Raiser ___ Wax Bleacher ___ Other (describe below) Sacrament/Intervention _x__ Active listening ___ Anointing ___ Adventist ___ Bereavement ___ Communion _x__ Carol exploration ___ _x__ Life review _x__ Prayer ___ Reconciliation ___ Sacrament of Sick ___ Supportive presence ___ Wedding ___ Other (describe below) Pastoral Comments patient was previously seen on hospital side and then had gone to another facility for surgery; pt is back now and in TCU for rehab; pt will be having more surgery tomorrow per her report; pt hopes to get home soon and get all this fixed; pt is talkative and asks questions about how to pray; pt welcomes support and the prayers of this milieu manager
--- NOTE | 2023-08-28 16:15 | CASEMGMT ---
Social Work SW met with patient and daughter at bedside to complete BIM and PHQ-2 for MDS assessment. Patient complete BIM () and PHQ-2 (0/0). FLORENCE Carvalho
[2023-08-29 05:07] VITALS: PULSE 60; RESP 16; O2SAT 96
--- NOTE | 2023-08-29 06:24 | EKG12_ITS ---
Test Reason : PRE OP Blood Pressure : / mmHG Vent. Rate : 083 BPM Atrial Rate : 083 BPM P-R Int : 138 ms QRS Dur : 124 ms QT Int : 404 ms P-R-T Axes : 037 028 -13 degrees QTc Int : 474 ms Sinus rhythm with Premature atrial complexes and Premature ventricular complexes or Fusion complexes Right bundle branch block T wave abnormality, consider inferior ischemia Abnormal ECG When compared with ECG of 07-AUG-2023 04:51, Fusion complexes are now Present Premature ventricular complexes are now Present Premature atrial complexes are now Present Confirmed by NADEEM KRAMER, ALISA ([id number]), general expeditor SUSHIL RUCKER ([id number]) on 08/29/2023 1:24:28 PM Referred By: Gopi Fox Confirmed By:ALISA SILVER MD
[2023-08-29] MEDS: Pantoprazole Sodium 40 MG Tablet PO (08:37)
--- NOTE | 2023-08-29 09:38 | NURSING ---
Production Sanitizer Note; MDS for 08/29/2023 Complete
--- NOTE | 2023-08-29 10:23 | CASEMGMT ---
Social Work IDT met with patient and dtr via conference call for care plan meeting. Discussed patient's progress in PT/OT/SN. Educated to Medicare benefit. Confirmed DC plans for 09/02 after pt sees all Drs as discussed yesterday. No other concerns or needs noted. Sandy Kenny, SHIPYARD PAINTER RATING CLERK
--- NOTE | 2023-08-29 14:51 | NURSING ---
PT LEFT FLOOR BY BED FOR SURGERY WITH AT 1450.
--- NOTE | 2023-08-29 16:30 | DCINST_ITS ---
Discharge Instructions Diet Discharge Diet: No restrictions Activity Discharge Activity: Return to Normal Activity and May Not Drive (while taking narcotic pain medications.) Dressing / Incision Call your doctor if you observe: Fever of 101 or Higher Follow Up Care Please Follow Up With: Enrike Merchant MD When: Call [phone] for an appointment Test Results: Test results from this visit will be discussed in further detail at your follow- up appointment, if applicable. Discharge Plan Admission Admit Date/Time: 08/22/23 12:44 Primary Reason for Your Visit: stone Attending Provider: Gopi Fox Chi Primary Care Provider: Mary Smith Consulting Providers: Enrike Merchant Discharge Orders/Prescriptions Prescriptions: Continued pantoprazole [Protonix] 40 MG tablet,delayed release (DR/EC) 40 mg PO DAILY cyanocobalamin (vitamin B-12) 1 tab PO DAILY Patient Comments: PT UNSURE OF STRENGTH potassium gluconate 600 mg (99 mg) tablet 600 mg PO DAILY ascorbate calcium (vitamin C) 500 mg tablet 1 g PO DAILY ciprofloxacin HCl [Cipro] 500 mg tablet 500 mg PO BID Qty: 6 0RF Referrals / Follow Up: Mary Smith DO [Primary Care Provider] - Disposition Disposition (needs filled in before D/C Order can be placed): Home, Self Care
--- NOTE | 2023-08-29 16:32 | PCM.OPRPT ---
Report of Operation Date of Procedure: 08/29/23 Pre-Operative Diagnosis: Left ureteral calculi Post-Operative Diagnosis: The same Surgery/Procedure Performed:: Cystoscopy left stent placement Description of Surgical Findings:: Patient was taken back to the operating room after induction of general anesthesia, the patient was placed in dorsolithotomy position. The urethra and genitals were prepped and draped in usual sterile fashion. Using a 21 Taiwanese rigid cystourethroscope the entire length of the urethra was normal then went into the bladder. Identified the trigone the left and right ureteral orifice. I then cannulated the left ureteral orifice and advanced a wire up into the kidney. I then backloaded a 5 Taiwanese open ended catheter over the wire and injected contrast to delineate the anatomy. After the retrograde was performed I then used fluoroscopic images and guidance to advanced a wire up into the kidney and over the 0.038 glidewire I advanced a 6 Taiwanese by 26 cm double pigtail stent. I then pulled the 0.038 Glidewire off and the stent coiled in the kidney bladder good position. The bladder was then drained. We confirmed the position of the stent by fluoroscopy. Patient anesthetic was reversed and was taken back to the PACU in good condition. Surgeon: Enrike Merchant
--- NOTE | 2023-08-29 17:38 | NURSING ---
PT RETURNED TO FLOOR BY BED FROM SURGERY AT 1725. NO RESTRICTIONS, NEW ORDER FOR CIPRO 500 MG TWICE A DAY STARTING TOMORROW [08/30/23]. WANTS A APPOINTMENT MADE FOR A FOLLOW UP RN AWARE.
--- NOTE | 2023-08-29 19:43 | DS.PCM_ITS ---
Providers Date of Admission: 08/22/23 Primary Care Physician: Dr. Mary Smith, DO Consultations 08/28/23 07:30 Consult: Urology Routine Consulting Provider: Enrike Merchant Reason for Consult: Left ureteral stone. EMERGENT Consult: No MD Notified: Yes Date Notified: 08/28/23 Time Notified: 09:50 Method of Notification: Verbal Reason For Visit: CHOLEDOCHOLITHIASIS AND CHOLANGITIS Diagnosis Discharge Diagnosis (1) Left renal stone: Status: Acute Code(s): N20.0 - Calculus of kidney Plan 73 year old female with below past medical history hospitalized for cholangitis, choledocholithiasis, ESBL K. Pneumoniae bacteremia, ERCP unsuccessful, underwent op common bile duct exploration with stone removal incisional hernia repair 08/15/2023, admitted to TCU with debility, here for rehabilitation, strengthening, intravenous antibiotics, prior to discharge home alone. * Debility - PT/OT. * Pain - Tylenol 1000mg q6 prn pain (1-10). * Bowel - senna/colace 1 tablet bid prn, Magnesium citrate 300ml daily prn. * Adult immunization - Administer pneumonia vaccine, covid vaccine, flu vaccine as appropriate. * DVT prophylaxis - Hold, resident able to ambulate with assistance. * ESBL K. Pneumoniae bacteremia - Ertapenem 1gm iv q24 thru 08/26/2023. * GERD - Pantoprazole 40mg daily. Medications at Discharge Home Medications pantoprazole 40 mg tablet,delayed release (Protonix) 40 mg PO DAILY GERD 05/09/21 ascorbate calcium (vitamin C) 500 mg tablet 1 g PO DAILY SUPPLEMENT 08/05/23 cyanocobalamin (vitamin B-12) 1 tab PO DAILY 08/05/23 potassium gluconate 600 mg (99 mg) tablet 600 mg PO DAILY SUPPLEMENT 08/05/23 ascorbic acid (vitamin C) 500 mg tablet 500 mg PO DAILY@1000 30 days #30 tabs 08/29/23 baclofen 10 mg tablet 10 mg PO TID 30 days #90 tabs 08/29/23 ciprofloxacin HCl 500 mg tablet (Cipro) 500 mg PO BID 3 days #6 tabs 08/29/23 polysaccharide iron complex 150 mg iron capsule (Ferrex) 150 mg PO DAILY 30 days #30 caps 08/29/23 Hospital Course Operations - (See below.) Procedures None Summary of Care Provided Minutes Spent on Discharge: 35 Hospital Course: 73 year old female with below past medical history hospitalized for cholangitis, choledocholithiasis, ESBL K. Pneumoniae bacteremia, ERCP unsuccessful, underwent op common bile duct exploration with stone removal incisional hernia repair 08/15/2023, admitted to TCU with debility, here for rehabilitation, strengthening, intravenous antibiotics, prior to discharge home alone. 08/25/2023 CT abdomen/pelvis ordered due to vomiting, left flank pain. IMPRESSION: Mild left hydronephrosis secondary to a 7 mm proximal ureteral calculus. Interval placement of percutaneous catheter into the common duct with decreased biliary ductal dilatation. Mild right upper quadrant postoperative edema extending near the pancreatic head. Mild acute pancreatitis not excluded. Mild postoperative edema at the ventral hernia repair site. Colonic diverticulosis without acute diverticulitis. Postoperative change of the stomach. 08/29/2023 Dr. Merchant Surgery/Procedure Performed:: Cystoscopy left stent placement DC home alone 09/02, no needs. Physical Exam Const alert General Appearance: cooperative HEENT normocephalic Eyes PERRL and EOMs intact bilaterally Neck supple, no JVD and no carotid bruits Resp normal respiratory effort, normal air movement and clear to auscultation bilaterally Cardio regular rate and regular rhythm GI normal to inspection, nondistended, normoactive bowel sounds, non-tender and non-distended GI Narrative: Midline incision yao clean, dry, intact. Right upper quadrant biliary drain capped. Left lower quadrant ERIKA drain, serosanguineous fluid in bulb. Extremity normal capillary refill Extremity Narrative: PICC right upper extremity. General Extremity: Negative for edema Skin no rashes or lesions noted General Skin Exam: no breakdown Psych affect normal Appearance: appropriate Weight / BMI Weight Weight: 83.915 kg Body Mass Index (BMI) 29.0 ABG / Lab / Microbiology Data 08/28/23 08:17 08/28/23 08:17 Microbiology: Microbiology 08/24/23 14:00 Urine, Catheterized Urine Culture - Final Culture exhibits no growth. D/C Instructions Discharge Diet: No restrictions Discharge Activity: Return to Normal Activity, May Shower and Use Walker Weight Bearing Status: Weight bearing as tolerated Call your doctor if you observe: Fever of 101 or Higher, Inability to urinate, Inability to have a bowel movement, Shortness of breath, Dizziness, Fainting spells, Swelling in the ankles, Chest pain and Uncontrolled pain Additional Instructions: DC home alone 09/02, no needs Please Follow Up With: Enrike Merchant MD When: Call [phone] for an appointment Meaningful Use Info Meaningful Use Diagnoses (Choose all that apply): None applicable Discharge Plan Admission Admit Date/Time: 08/22/23 12:44 Primary Reason for Your Visit: Debility. Attending Provider: Gopi Fox Chi Primary Care Provider: Mary Smith Consulting Providers: Enrike Merchant Instructions Additional Instructions / Restrictions: DC home alone 09/02, no needs Discharge Orders/Prescriptions Prescriptions: New polysaccharide iron complex [Ferrex 150] 150 mg iron Capsule 150 mg PO DAILY 30 Days Qty: 30 0RF ascorbic acid (vitamin C) 500 mg Tablet 500 mg PO DAILY@1000 30 Days Qty: 30 0RF baclofen 10 mg Tablet 10 mg PO TID 30 Days Qty: 90 0RF Continued pantoprazole [Protonix] 40 MG tablet,delayed release (DR/EC) 40 mg PO DAILY cyanocobalamin (vitamin B-12) 1 tab PO DAILY Patient Comments: PT UNSURE OF STRENGTH potassium gluconate 600 mg (99 mg) tablet 600 mg PO DAILY ascorbate calcium (vitamin C) 500 mg tablet 1 g PO DAILY ciprofloxacin HCl [Cipro] 500 mg tablet 500 mg PO BID 3 Days Qty: 6 0RF Referrals / Follow Up: Enrike Merchant MD [Med Staff - Active Staff] - Mary Smith DO [Primary Care Provider] - Disposition Disposition (needs filled in before D/C Order can be placed): Home, Self Care
[2023-08-29] MEDS: Baclofen 10 MG Tablet PO (21:50)
[2023-08-30] MEDS: Baclofen 10 MG Tablet PO ×3 (05:07→20:46)
[2023-08-30 05:58] LABS: Absolute Lymphocyte Count 1.82 X10^3/uL (0.83-4.51); Absolute Neutrophil Count 4.8 X10^3/uL (2.0-7.7); Basophil# 0.04 X10^3/uL; Basophil% 0.5 % (0-1); Eosinophil# 0.46 X10^3/uL; Eosinophils% 5.7 % (0-5); Hemoglobin 9.9 g/dL (12.0-15.0); Lymphocyte # 1.82 X10^3/ul (0.83-4.51); Lymphocyte % 22.6 % (19-41); Mean Corp Hgb Conc 30.9 g/dL (32-36); Mean Corpuscular Hgb 29.8 pg (27.0-32.0); Mean Corpuscular Volume 96.4 fL (81-99); Monocyte# 0.88 X10^3/uL; Monocyte% 10.9 % (0-10); NRBC Flagged by Analyzer 0 % (0-5); Neutrophil % 59.7 % (47-70); Platelet Count 265 K/mm3 (150-450); RBC Distribution Width CV 15.1 % (11.6-14.6); RBC Distribution Width SD 53.2 fl (35.1-43.9); Red Blood Count 3.32 M/mm3 (4.2-5.4); White Blood Count 8.1 K/mm3 (4.4-11.0)
[2023-08-30 06:22] LABS: Anion Gap 6 (5-15); BUN 10 mg/dL (7-18); BUN/Creat Ratio 9.6 RATIO (10-20); Calcium,Total 8.4 mg/dL (8.5-10.1); Chloride 107 mmol/L (98-107); Creatinine, Serum 1.04 mg/dL (0.55-1.02); EST Glomerular Filtration Rate 55 mL/min (>60); Est Glom Filt Rate - Afr Amer 67 mL/min (>60); Estimated Creatinine Clearance 54.44 ml/min; Glucose 103 mg/dL (74-106); Potassium 3.7 mmol/L (3.5-5.1); Sodium Level 141 mmol/L (136-145)
--- NOTE | 2023-08-30 07:54 | NURSING ---
At approximately 0400, patient reported to VENDER that her gallbladder drain was leaking. Patient handed connector piece to this nurse and another CROWN IRONER stating, it must have fell off. Upon reattaching it, it was loose. A yellow clamp was placed to prevent leakage and the connector piece was taped tightly around tube to prevent it from falling off.
[2023-08-30] MEDS: Ascorbic Acid 500 MG Tablet PO (08:54)
[2023-08-30] MEDS: Pantoprazole Sodium 40 MG Tablet PO (08:54)
[2023-08-30] MEDS: Ciprofloxacin 500 MG Tablet PO ×2 (08:54→20:46)
[2023-08-30] MEDS: Iron Polysaccharide Complex 150 MG CAPSULE PO (08:54)
[2023-08-30] MEDS: Tuberculin,Purif.prot.deriv. 50 TU/ML Vial 0.1 ML ID (11:19)
[2023-08-30 14:52] VITALS: BP 108/76; PULSE 89; RESP 18; TEMP 36.1; O2SAT 98
[2023-08-30] MEDS: Acetaminophen 500 MG Tablet 1000 MG PO (20:45)
[2023-08-31] MEDS: Baclofen 10 MG Tablet PO ×3 (05:11→21:28)
[2023-08-31] MEDS: Acetaminophen 500 MG Tablet 1000 MG PO (06:35)
--- NOTE | 2023-08-31 07:23 | NURSING ---
0700 PT LEFT FOR APPT AT [facility] THIS AM, STAFF ASSISTED PT TO THE DOOR VIA W/C AND FAMILY ASSISTED INTO THE VAN. PT WAS MEDICATED WITH TYLENOL AT 0630 AND AM BACLOFEN GIVEN PRIOR TO LEAVING.
[2023-08-31] MEDS: Ascorbic Acid 500 MG Tablet PO (13:47)
[2023-08-31] MEDS: Ciprofloxacin 500 MG Tablet PO ×2 (13:47→21:28)
[2023-08-31 13:50] VITALS: PULSE 82; RESP 18; O2SAT 96
[2023-08-31 13:52] VITALS: BP 115/75; PULSE 96; RESP 18; TEMP 36.2; O2SAT 98
--- NOTE | 2023-08-31 14:05 | NURSING ---
PT RETURNED FROM APPOINTMENT IN [place] AT 1330 WITH FAMILY. NO NEW ORDERS SENT BACK WITH PT. RON WERE REMOVED FROM ABDOMINAL AREA AND LEFT OPEN TO AIR. LEFT ERIKA DRAIN WAS REMOVED. THIS NURSE DID A ASSESSMENT ON PT AND REAPPLIED NEW DRESSING TO ERIKA SITE. PT STATED THAT LEFT RT DRAIN IN FOR NOW AND STATED SHE THINKS HE WILL CALL ON SUNDAY FOR INFORMATION. RN AWARE.
[2023-08-31] MEDS: 0.9% Saline Lock 10 ML Syringe IV (14:30)
[2023-08-31] MEDS: Iron Polysaccharide Complex 150 MG CAPSULE PO (16:27)
[2023-08-31] MEDS: Pantoprazole Sodium 40 MG Tablet PO (16:27)
[2023-09-01] MEDS: Baclofen 10 MG Tablet PO ×3 (05:41→22:09)
[2023-09-01] MEDS: Ciprofloxacin 500 MG Tablet PO ×2 (08:23→22:09)
[2023-09-01] MEDS: Iron Polysaccharide Complex 150 MG CAPSULE PO (08:23)
[2023-09-01] MEDS: Pantoprazole Sodium 40 MG Tablet PO (08:23)
[2023-09-01] MEDS: Ascorbic Acid 500 MG Tablet PO (08:23)
[2023-09-01] MEDS: Ondansetron ODT 4 MG Tablet 8 MG PO (12:51)
[2023-09-01 16:00] VITALS: BP 103/50; PULSE 79; RESP 16; TEMP 36.6; O2SAT 94
[2023-09-02] MEDS: Baclofen 10 MG Tablet PO ×3 (05:28→21:03)
[2023-09-02] MEDS: Pantoprazole Sodium 40 MG Tablet PO (09:48)
[2023-09-02] MEDS: Ciprofloxacin 500 MG Tablet PO ×2 (09:48→21:04)
[2023-09-02] MEDS: Ascorbic Acid 500 MG Tablet PO (09:48)
[2023-09-02] MEDS: Iron Polysaccharide Complex 150 MG CAPSULE PO (09:48)
--- NOTE | 2023-09-02 11:03 | NURSING ---
faxed medical release of information for midline length for removal for DC tomorrow to [facility]. Awaiting results.
[2023-09-02 13:54] VITALS: BP 90/56; PULSE 78; RESP 16; TEMP 36.3; O2SAT 95
[2023-09-03] MEDS: Baclofen 10 MG Tablet PO (05:04)
[2023-09-03] MEDS: Ciprofloxacin 500 MG Tablet PO (09:23)
[2023-09-03] MEDS: Ascorbic Acid 500 MG Tablet PO (09:24)
[2023-09-03] MEDS: Pantoprazole Sodium 40 MG Tablet PO (09:28)
[2023-09-03 09:31] VITALS: BP 104/60; PULSE 68; RESP 18; TEMP 36.9; O2SAT 95
[2023-09-03] MEDS: Iron Polysaccharide Complex 150 MG CAPSULE PO (09:40)
[2023-09-03 11:28] VITALS: BP 104/60; PULSE 65; RESP 18; TEMP 36.9; O2SAT 95
--- NOTE | 2023-09-04 12:53 | MDS.RN ---
Information for the mds was obtained from review of the clinical record, interview of resident, staff, and direct observation of resident's care.
== END 2023-09-03 11:10 | disposition home or self-care (01) | DRG 949 ==
PROVIDERS: Admitting Provider Family Medicine Geriatric Medicine; PCP Family Medicine; Visit Provider Family Medicine Geriatric Medicine
DX: Z48.815 Encounter for surgical aftercare following surgery on the digestive system (principal); I62.00 Nontraumatic subdural hemorrhage, unspecified; R78.81 Bacteremia; K80.30 Calculus of bile duct with cholangitis, unspecified, without obstruction; N13.2 Hydronephrosis with renal and ureteral calculous obstruction; K21.9 Gastro-esophageal reflux disease without esophagitis; E87.6 Hypokalemia; K43.9 Ventral hernia without obstruction or gangrene; K57.30 Diverticulosis of large intestine without perforation or abscess without bleeding; Z87.891 Personal history of nicotine dependence; B96.1 Klebsiella pneumoniae [K. pneumoniae] as the cause of diseases classified elsewhere; Z79.899 Other long term (current) drug therapy
CPT/HCPCS: 36415; 74018; 80048; 80053; 81001; 82150; 83690; 85014; 85018; 85025; 87086; 93005; 97110; 97116; 97162; 97166; 97530; 97535; J7030; J7050; A4216

== ENCOUNTER → 2023-08-25 | Outpatient (CLI) | payer MEDICARE, OTHER, SELFPAY ==
--- NOTE | 2023-08-25 10:38 | CT_ITS ---
HISTORY: General abdominal discomfort, recent abdominal surgery, history of kidney stones. TECHNIQUE: Helically acquired images were obtained of the abdomen and pelvis without oral or IV contrast. A radiation dose optimization technique was used for this scan. 489 images. COMPARISON: 08/05/2023. FINDINGS: LOWER CHEST: Mild dependent atelectasis. BOWEL: Surgical clips at the gastroesophageal junction. Unchanged appearance of distal gastrectomy. Bowel including appendix nondilated. Moderate stool in the colon. Colonic diverticulosis without pericolonic inflammation. PERITONEUM: No significant free fluid. LIVER: Unremarkable. GALLBLADDER/BILIARY TREE: Cholecystectomy. Percutaneous catheter in the common bile duct decreased appearance of biliary dilatation. PANCREAS: Mild right upper quadrant stranding extending near the pancreatic head. SPLEEN/ADRENAL GLANDS: Nonenlarged. KIDNEYS AND URETERS: Mild left hydronephrosis and perinephric stranding secondary to a 7 mm proximal ureteral calculus. No right nephrolithiasis or hydronephrosis. VESSELS: No abdominal aortic aneurysm. Mild atherosclerosis. PELVIC ORGANS: Tubal ligation clips noted. ABDOMINAL WALL: Postoperative change with anterior skin yao, anterior drain, and subcutaneous edema with interval reduction and repair of ventral hernia. BONES: Degenerative change and osteopenia. CT/Abdomen/Pelvis without Cont IMPRESSION: Mild left hydronephrosis secondary to a 7 mm proximal ureteral calculus. Interval placement of percutaneous catheter into the common duct with decreased biliary ductal dilatation. Mild right upper quadrant postoperative edema extending near the pancreatic head. Mild acute pancreatitis not excluded. Mild postoperative edema at the ventral hernia repair site. Colonic diverticulosis without acute diverticulitis. Postoperative change of the stomach. Electronically Signed: Rose Marie Fernández MD at 11:54 EDT ,
== END | disposition home or self-care (01) ==
LOC: CT 10:35
PROVIDERS: PCP Family Medicine; Referring Provider Family Medicine Geriatric Medicine; Visit Provider Family Medicine Geriatric Medicine
DX: Z87.442 Personal history of urinary calculi (principal); Z98.890 Other specified postprocedural states
CPT/HCPCS: 74176

== ENCOUNTER 2023-08-29 15:00 | Day surgery (SDC) | payer MEDICARE, OTHER, SELFPAY ==
[2023-08-29 15:24] VITALS: BP 95/64; PULSE 83; RESP 18; TEMP 36.3; O2SAT 94; BMI 29.0
[2023-08-29] MEDS: Lactated Ringers 1,000 ML 15 ML IV (15:32)
[2023-08-29] MEDS: Cefazolin 2 GM in 0.9% Normal Saline (100mL Bag) 100 ML IV (16:12)
--- NOTE | 2023-08-29 16:13 | DCINST_ITS ---
Discharge Instructions Diet Discharge Diet: No restrictions Activity Discharge Activity: Return to Normal Activity and May Not Drive (while taking narcotic pain medications.) Dressing / Incision Call your doctor if you observe: Fever of 101 or Higher Follow Up Care Please Follow Up With: Enrike Merchant MD When: Call [phone] for an appointment Test Results: Test results from this visit will be discussed in further detail at your follow- up appointment, if applicable. Discharge Plan Admission Primary Reason for Your Visit: Cystoscopy left stent Attending Provider: Enrike Merchant Primary Care Provider: Mary Smith Discharge Orders/Prescriptions Prescriptions: New ciprofloxacin HCl [Cipro] 500 mg tablet 500 mg PO BID Qty: 6 0RF Continued pantoprazole [Protonix] 40 MG tablet,delayed release (DR/EC) 40 mg PO DAILY cyanocobalamin (vitamin B-12) 1 tab PO DAILY Patient Comments: PT UNSURE OF STRENGTH potassium gluconate 600 mg (99 mg) tablet 600 mg PO DAILY ascorbate calcium (vitamin C) 500 mg tablet 1 g PO DAILY Referrals / Follow Up: Enrike Merchant MD [Med Staff - Active Staff] - Mary Smith DO [Primary Care Provider] - Disposition Disposition (needs filled in before D/C Order can be placed): Home, Self Care
--- NOTE | 2023-08-29 16:13 | HP.PCM_ITS ---
[facility] - General General Date of Service: 08/29/23 Chief Complaint: Left ureteral calculi [facility] Narrative CARLA HARRISON, is a 73 F who presents with obstructing stone in the mid left ureter we plan to place a stent today [facility] Medical History (Updated 08/28/23 @ 13:40 by Quin Ribeiro) Alcohol use Anemia Arthritis Back pain Brain bleed Duodenal ulcer Easy bruising Former smoker Gastric reflux GERD (gastroesophageal reflux disease) GI bleed History of diverticulitis History of GI bleed History of muscle spasm History of stress test Leg cramps Migraines Open wound Restless legs SDH (subdural hematoma) Seizures Wears dentures Wears glasses Home Medications pantoprazole 40 mg tablet,delayed release (Protonix) 40 mg PO DAILY GERD 05/09/21 [History Last Taken 08/29/23] ascorbate calcium (vitamin C) 500 mg tablet 1 g PO DAILY SUPPLEMENT 08/05/23 [History Last Taken 08/28/23] cyanocobalamin (vitamin B-12) 1 tab PO DAILY 08/05/23 [History Last Taken 08/28/23] potassium gluconate 600 mg (99 mg) tablet 600 mg PO DAILY SUPPLEMENT 08/05/23 [History Last Taken 08/28/23] ciprofloxacin HCl 500 mg tablet (Cipro) 500 mg PO BID #6 tabs 08/29/23 [Rx Last Taken Unknown] Allergy/AdvReac Type Severity Reaction Status Date / Time Penicillins Allergy Rash Verified 08/29/23 15:23 prednisone Allergy Rash Verified 08/29/23 15:23 ibuprofen AdvReac Other Verified 08/29/23 15:23 Family History Mother Colon cancer Father Colon cancer Aunt Colon cancer Other Heart disease Surgical History (Updated 08/28/23 @ 13:10 by Quin Ribeiro) History of cholecystectomy History of common bile duct surgery History of ERCP History of incisional hernia repair Hx of colonoscopy Hx of esophagogastroduodenoscopy S/P tubal ligation S/P wrist surgery Status post craniotomy Social History household members: none Smoking Status: Former smoker alcohol intake: never substance use type: does not use Vital Signs Vital Signs Vital Signs: 08/29/23 15:24 08/29/23 15:24 Temperature 97.3 F L Temperature Source Temporal Pulse Rate 83 Respiratory Rate 18 Respiratory Pattern Normal Blood Pressure 95/64 Blood Pressure Mean 74 Blood Pressure Source Monitor Blood Pressure Position Semi-Fowlers Blood Pressure Location Left Arm Pulse Ox 94 Oxygen Delivery Method Room Air Weight Weight: 83.915 kg Body Mass Index (BMI) 29.0
--- NOTE | 2023-08-29 16:13 | OP.PCM_ITS ---
Report of Operation Date of Procedure: 08/29/23 Pre-Operative Diagnosis: Left mid ureteral calculi Post-Operative Diagnosis: The same Surgery/Procedure Performed:: Cystoscopy left stent placement and left retrograde pyelogram Description of Surgical Findings:: Patient was taken back to the operating room after induction of general anesthesia, the patient was placed in dorsolithotomy position. The urethra and genitals were prepped and draped in usual sterile fashion. Using a 21 Vietnamese rigid cystourethroscope the entire length of the urethra was normal then went into the bladder. Identified the trigone the left and right ureteral orifice. I then cannulated the left ureteral orifice and advanced a wire up into the kidney. I then backloaded a 5 Vietnamese open ended catheter over the wire and injected contrast to delineate the anatomy. After the retrograde was performed I then used fluoroscopic images and guidance to advanced a wire up into the kidney and over the 0.038 glidewire I advanced a 6 Vietnamese by 26 cm double pigtail stent. I then pulled the 0.038 Glidewire off and the stent coiled in the kidney bladder good position. The bladder was then drained. We confirmed the position of the stent by fluoroscopy. Patient anesthetic was reversed and was taken back to the PACU in good condition. Surgeon: Enrike Merchant Type of Anesthesia: General Drains: stent Admit VTE Documentation VTE Present on Admission: No VTE Mechan Device Prophylaxis: SCD's VTE Pharm Prophylaxis ordered?: No
[2023-08-29 16:40] VITALS: BP 95/64; BP 98/57; PULSE 83; RESP 16; TEMP 36.2; O2SAT 99
[2023-08-29 16:45] VITALS: BP 95/64; BP 97/51; PULSE 85; RESP 16; O2SAT 96
[2023-08-29 16:50] VITALS: BP 94/50; BP 95/64; PULSE 81; RESP 16; TEMP 36.9; O2SAT 97
[2023-08-29 17:22] VITALS: BP 95/64
== END 2023-08-29 17:25 | disposition home or self-care (01) ==
LOC: SDC 15:01 → AC 15:01
PROVIDERS: PCP Family Medicine; Referring Provider Family Medicine; Visit Provider Urology
PROC: (CPT 52332; principal; 2023-08-29 15:55)
DX: N20.1 Calculus of ureter (principal); K21.9 Gastro-esophageal reflux disease without esophagitis; Z79.899 Other long term (current) drug therapy; Z87.891 Personal history of nicotine dependence
CPT/HCPCS: 52332; 76000; J7120; A4216; C1769; C2617; J2405

== ENCOUNTER 2023-09-07 14:07 | Emergency (ER) | payer MEDICARE, OTHER, SELFPAY ==
[2023-09-07 14:08] VITALS: BP 118/65; PULSE 95; RESP 14; TEMP 36.1; O2SAT 97; BMI 28.3
--- NOTE | 2023-09-07 14:26 | CT_ITS ---
INDICATION: abdominal pain EXAMINATION: CT ABDOMEN AND PELVIS WITHOUT CONTRAST - CT Abdomen And Pelvis W/O Contrast Injection TECHNIQUE: Helically acquired images were obtained of the abdomen and pelvis without oral or IV contrast. A radiation dose optimization technique was used for this scan. IV Contrast dosage and agent: None. Oral contrast: None. RADIATION DOSAGE (If Supplied By Facility): CTDIvol = ( 15.32 ) mGy, DLP = ( 784.46 ) mGycm COMPARISON: August 25, 2023 FINDINGS: LOWER CHEST: Lung bases are clear. No cardiomegaly or pericardial effusion. The lack of intravenous contrast limits evaluation of solid visceral organs. LIVER: There is pneumobilia. GALLBLADDER AND BILIARY TREE: The gallbladder is surgically absent. There is a percutaneous drainage biliary catheter in place extending into the common bile duct. There is dilatation of the common bile duct measuring 9.3 mm in diameter. PANCREAS: No focal cystic or solid mass. SPLEEN: Normal size without focal cystic or solid mass. ADRENAL GLANDS: No nodules. KIDNEYS AND URETERS: Normal renal size and position. There is a new catheter within the left ureter with the proximal pigtail catheter within the left renal pelvis and the distal and terminating within the urinary bladder; there is near complete resolution of the hydronephrosis visualized on the prior examination. PERITONEUM: No ascites or free air. No other fluid collection. BOWEL: No evidence of acute appendicitis. No stomach or bowel distension. There are diverticula arising from the colon. No focal inflammatory change. LYMPH NODES: No enlarged mesenteric or retroperitoneal lymph nodes. VESSELS: Aorta is non-dilated. There are vascular calcifications. URINARY BLADDER: Unremarkable. REPRODUCTIVE ORGANS: No pelvic masses. ABDOMINAL WALL: There is a 7.5 x 5.9 x 10.9 cm cyst subcutaneous fluid collection within the surgical bed within the supraumbilical abdominal wall. There is a punctate focus of air within the fluid collection. BONES: There are degenerative changes of the lumbar spine. CT/Abdomen/Pelvis without Cont IMPRESSION: 7.5 x 5.9 x 10.9 cm subcutaneous fluid collection within the surgical bed within the upper anterior abdominal wall, may reflect a seroma, cannot exclude an infectious process; there is a focus of air within the fluid collection which may be secondary to prior instrumentation however cannot exclude a gas producing organism. Pneumobilia, likely secondary to prior instrumentation. Near complete resolution of left-sided hydroureteronephrosis secondary to placement of left ureteral catheter. Colonic diverticulosis. Atherosclerosis. Electronically Signed: Cee Morris MD at 16:36 EDT ,
--- NOTE | 2023-09-07 14:32 | EX.ED.DYSGE1 ---
HPI <ALEJANDRO Lim - Last Filed: 09/07/23 16:58> History of Present Illness Chief Complaint: Complaint Narrative Narrative: 73-year-old female presents with urinary issues. She recently had a left obstructive kidney stone with hydronephrosis and Dr. Merchant placed a ureteral stent on 08/29/2023. Patient states this afternoon after urinating she continued to leak urine and clear fluid from the urethra. She states this has been occurring over the last hour. She has no hematuria or burning and no abdominal or flank pain. After speaking with the urologist who recommended going to the ED for imaging to ensure the stent has not moved. Patient also has a percutaneous drain in her right upper quadrant for a common bile duct infection that was placed at [facility] month ago. She does not have any acute issues with this. [facility] <ALEJANDRO Lim - Last Filed: 09/07/23 16:58> [facility] Medical History (Updated 09/07/23 @ 16:47 by ALEJANDRO Lim) Alcohol use Anemia Arthritis Back pain Brain bleed Duodenal ulcer Easy bruising Former smoker Gastric reflux GI bleed History of diverticulitis History of GI bleed History of muscle spasm History of stress test Leg cramps Migraines Open wound Restless legs Seizures Wears dentures Wears glasses Home Medications pantoprazole 40 mg tablet,delayed release (Protonix) 40 mg PO DAILY GERD 05/09/21 [History Last Taken 08/29/23] ascorbate calcium (vitamin C) 500 mg tablet 1 g PO DAILY SUPPLEMENT 08/05/23 [History Last Taken 08/28/23] cyanocobalamin (vitamin B-12) 1 tab PO DAILY 08/05/23 [History Last Taken 08/28/23] potassium gluconate 600 mg (99 mg) tablet 600 mg PO DAILY SUPPLEMENT 08/05/23 [History Last Taken 08/28/23] ascorbic acid (vitamin C) 500 mg tablet 500 mg PO DAILY@1000 30 days #30 tabs 08/29/23 [Rx Last Taken Unknown] baclofen 10 mg tablet 10 mg PO TID 30 days #90 tabs 08/29/23 [Rx Last Taken Unknown] ciprofloxacin HCl 500 mg tablet (Cipro) 500 mg PO BID 3 days #6 tabs 08/29/23 [Rx Last Taken Unknown] polysaccharide iron complex 150 mg iron capsule (Ferrex) 150 mg PO DAILY 30 days #30 caps 08/29/23 [Rx Last Taken Unknown] nitrofurantoin monohydrate/macrocrystals 100 mg capsule (Macrobid) 100 mg PO BID 7 days #14 caps 09/07/23 [Rx Last Taken Unknown] Allergy/AdvReac Type Severity Reaction Status Date / Time Penicillins Allergy Rash Verified 09/07/23 14:09 prednisone Allergy Rash Verified 09/07/23 14:09 ibuprofen AdvReac Other Verified 09/07/23 14:09 Family History Mother Colon cancer Father Colon cancer Aunt Colon cancer Other Heart disease Surgical History (Updated 09/07/23 @ 16:47 by ALEJANDRO Lim) History of cholecystectomy History of common bile duct surgery History of ERCP History of incisional hernia repair Hx of colonoscopy Hx of esophagogastroduodenoscopy S/P tubal ligation S/P wrist surgery Status post craniotomy Social History household members: none Smoking Status: Former smoker alcohol intake: never substance use type: does not use ROS <ALEJANDRO Lim - Last Filed: 09/07/23 16:58> ROS ED ROS Narrative Constitutional: Negative for fever, chills, malaise. CVS: Negative for chest pain. Respiratory: Negative for cough, shortness of breath. GI: Negative for abdominal pain, nausea, vomiting. : Negative for dysuria, hematuria. EXAM <ALEJANDRO Lim - Last Filed: 09/07/23 16:58> Physical Exam Narrative Exam Narrative: CONST: Patient sitting in no acute distress. EYES: Normal inspection. NECK: Normal inspection. RESP: No respiratory distress, CTAB. CVS: Regular rate and rhythm, no murmur, no gallop. ABD: Soft and nontender, no guarding or rebound, nondistended. Percutaneous drain present in RUQ which is clamped off. Back: Normal inspection, no CVA tenderness. SKIN: Color normal, no rash, warm, dry, intact. EXTREMITIES: Normal appearance, no pedal edema. NEURO: Oriented x4. PSYCH: Normal affect. Const Vital Signs: 09/07/23 14:08 09/07/23 16:08 Temperature 97 F L Temperature Source Temporal Pulse Rate 95 74 Respiratory Rate 14 17 Blood Pressure 118/65 117/51 L Blood Pressure Mean 82 73 Pulse Ox 97 100 Oxygen Delivery Method Room Air Room Air <Dr. Saira aCstorena MD - Last Filed: 09/07/23 16:41> Physical Exam Const Vital Signs: 09/07/23 14:08 09/07/23 16:08 Temperature 97 F L Temperature Source Temporal Pulse Rate 95 74 Respiratory Rate 14 17 Blood Pressure 118/65 117/51 L Blood Pressure Mean 82 73 Pulse Ox 97 100 Oxygen Delivery Method Room Air Room Air MDM <ALEJANDRO Lim - Last Filed: 09/07/23 16:58> MDM MDM Narrative Medical decision making narrative: History gathered from: Patient, family member Differential: Stent displacement, UTI Consults: Urology Patient reports leaking urine this afternoon. She had a left ureteral stent placed about a week and a half ago by Dr. Merchant. She has no abdominal or flank pain. She appears well and is afebrile with normal vital signs. She has no abdominal or CVA tenderness. There is a percutaneous drain present in her right upper abdomen that clamped off from her prior biliary procedure. Labs are unremarkable with normal white count of 10.0, BUN 6, creatinine 1.04. Urinalysis is consistent with infection. CT scan shows near complete resolution of left-sided hydroureter nephrosis secondary to placement of the left-sided ureteral stent. There is incidentally a subcutaneous fluid collection in the upper inner anterior abdominal wall likely seroma. Patient has no RUQ tenderness and a normal white count so I suspect this is seroma rather than infection and she is asymptomatic. Regarding her UTI I discussed the case with Dr. Merchant. She had finished 3 days of Cipro yesterday from the TCU and urology advised to prescribe Macrobid and she can follow-up in the office. Patient was discharged in stable condition. Lab Data Attestation: I reviewed the patient's lab results. Labs: Laboratory Results - last 24 hr 09/07/23 09/07/23 14:42 15:45 WBC 10.0 RBC 3.93 L Hgb 11.7 L Hct 37.9 MCV 96.4 MCH 29.8 MCHC 30.9 L RDW Std Deviation 51.1 H RDW Coeff of Bria 14.5 Plt Count 353 MPV 9.9 Immature Gran % (Auto) 0.700 Neut % (Auto) 66.5 Lymph % (Auto) 21.6 [place] % (Auto) 7.2 Eos % (Auto) 3.7 Baso % (Auto) 0.3 Absolute Neuts (auto) 6.7 Absolute Lymphs (auto) 2.16 Nucleated RBC % 0 Sodium 139 Potassium 3.2 L Chloride 107 Carbon Dioxide 29.0 Anion Gap 3 L BUN 6 L Creatinine 1.04 H Estim Creat Clear Calc 53.85 Est GFR (MDRD) Af Amer 67 Est GFR (MDRD) Non-Af 55 L BUN/Creatinine Ratio 5.8 L Glucose 90 Calcium 8.4 L Urine Color Yellow Urine Clarity Cloudy Urine pH 6.0 Ur Specific [place] 1.015 Urine Protein 100 H Urine Glucose (UA) Normal Urine Ketones Negative Urine Occult Blood 250 H Urine Nitrite Positive H Urine Bilirubin Negative Urine Urobilinogen Normal Ur Leukocyte Esterase 500 H Urine RBC 0 SEEN Urine WBC >100 SEEN Ur Squamous Epith Cells 0 SEEN Urine Bacteria 2+ Urine Mucus 0 SEEN Radiography Diagnostic Testing: Clinical Impression(s) from Imaging Studies Abdomen/Pelvis CT 09/07/23 14:26 IMPRESSION: 7.5 x 5.9 x 10.9 cm subcutaneous fluid collection within the surgical bed within the upper anterior abdominal wall, may reflect a seroma, cannot exclude an infectious process; there is a focus of air within the fluid collection which may be secondary to prior instrumentation however cannot exclude a gas producing organism. Pneumobilia, likely secondary to prior instrumentation. Near complete resolution of left-sided hydroureteronephrosis secondary to placement of left ureteral catheter. Colonic diverticulosis. Atherosclerosis. Electronically Signed: Cee Morris MD at 16:36 EDT , <Dr. Saira Castorena MD - Last Filed: 09/07/23 16:41> [facility] Lab Data Labs: Laboratory Results - last 24 hr 09/07/23 09/07/23 14:42 15:45 WBC 10.0 RBC 3.93 L Hgb 11.7 L Hct 37.9 MCV 96.4 MCH 29.8 MCHC 30.9 L RDW Std Deviation 51.1 H RDW Coeff of Bria 14.5 Plt Count 353 MPV 9.9 Immature Gran % (Auto) 0.700 Neut % (Auto) 66.5 Lymph % (Auto) 21.6 [place] % (Auto) 7.2 Eos % (Auto) 3.7 Baso % (Auto) 0.3 Absolute Neuts (auto) 6.7 Absolute Lymphs (auto) 2.16 Nucleated RBC % 0 Sodium 139 Potassium 3.2 L Chloride 107 Carbon Dioxide 29.0 Anion Gap 3 L BUN 6 L Creatinine 1.04 H Estim Creat Clear Calc 53.85 Est GFR (MDRD) Af Amer 67 Est GFR (MDRD) Non-Af 55 L BUN/Creatinine Ratio 5.8 L Glucose 90 Calcium 8.4 L Urine Color Yellow Urine Clarity Cloudy Urine pH 6.0 Ur Specific [place] 1.015 Urine Protein 100 H Urine Glucose (UA) Normal Urine Ketones Negative Urine Occult Blood 250 H Urine Nitrite Positive H Urine Bilirubin Negative Urine Urobilinogen Normal Ur Leukocyte Esterase 500 H Urine RBC 0 SEEN Urine WBC >100 SEEN Ur Squamous Epith Cells 0 SEEN Urine Bacteria 2+ Urine Mucus 0 SEEN Radiography Diagnostic Testing: Clinical Impression(s) from Imaging Studies Abdomen/Pelvis CT 09/07/23 14:26 IMPRESSION: 7.5 x 5.9 x 10.9 cm subcutaneous fluid collection within the surgical bed within the upper anterior abdominal wall, may reflect a seroma, cannot exclude an infectious process; there is a focus of air within the fluid collection which may be secondary to prior instrumentation however cannot exclude a gas producing organism. Pneumobilia, likely secondary to prior instrumentation. Near complete resolution of left-sided hydroureteronephrosis secondary to placement of left ureteral catheter. Colonic diverticulosis. Atherosclerosis. Electronically Signed: Cee Morris MD at 16:36 EDT , Treatment and Re-Evaluation :: Patient seen and evaluated with MARY. I personally interviewed and examined the patient. I was involved in all aspects of patient's orders, interpretation of results, and treatment. Patient presents secondary to dysuria and leaking urine. She had a left ureteral stent placed last week secondary to renal stone. She states today she went to the restroom, stood up to clean herself up, and keeps leaking urine. She does report some dysuria as well. No fever or chills. Patient significant bed no acute distress. Nontoxic-appearing. Head and neck examination unremarkable. Heart is regular rate and rhythm. Abdomen is soft with no focal tenderness. She does have a right upper quadrant drain in place with no surrounding erythema or sign of infection. CBC was normal white count 10.0 with a hemoglobin 11.7. Chemistry studies unremarkable with normal renal function. Urinalysis is positive for nitrites with greater than 100 white cells and 2+ bacteria. CT flank reveals near complete resolution of the left-sided hydronephrosis secondary to placement of a left ureteral catheter. Right upper quadrant changes are noted from her prior surgery and drain. Urine is sent for culture. She recently completed a course of Cipro. We will speak with Dr. Merchant regarding her findings given that she did speak with him prior to arriving in the emergency room. Plan will be to discharge on antibiotics and patient advised that if urine culture indicates different therapy is needed she will be called. Discharge Plan Triage Chief Complaint: Complaint ED Midlevel Provider: Mary Ga ED Provider: Saira Castorena Dx/Rx/DC Orders Clinical Impression: History of renal stent, Acute UTI Instructions: Urinary Tract Infections in Women Prescriptions: New nitrofurantoin monohyd/m-cryst [Macrobid] 100 mg capsule 100 mg PO BID 7 Days Qty: 14 0RF Rx Instructions: must administer with a meal/food No Action pantoprazole [Protonix] 40 MG tablet,delayed release (DR/EC) 40 mg PO DAILY cyanocobalamin (vitamin B-12) 1 tab PO DAILY Patient Comments: PT UNSURE OF STRENGTH potassium gluconate 600 mg (99 mg) tablet 600 mg PO DAILY ascorbate calcium (vitamin C) 500 mg tablet 1 g PO DAILY polysaccharide iron complex [Ferrex 150] 150 mg iron Capsule 150 mg PO DAILY 30 Days Qty: 30 0RF ascorbic acid (vitamin C) 500 mg Tablet 500 mg PO DAILY@1000 30 Days Qty: 30 0RF baclofen 10 mg Tablet 10 mg PO TID 30 Days Qty: 90 0RF ciprofloxacin HCl [Cipro] 500 mg tablet 500 mg PO BID 3 Days Qty: 6 0RF Primary Care Provider: Mary Smith Referrals: Enrike Merchant MD [Med Staff - Active Staff] - Mary Smith DO [Primary Care Provider] - Activity Restrictions/Additional Instructions: I prescribed Macrobid which is an antibiotic for your urinary tract infection. Please follow-up with urology. Disposition Disposition: Home, Self Care
[2023-09-07 15:12] LABS: Absolute Lymphocyte Count 2.16 X10^3/uL (0.83-4.51); Absolute Neutrophil Count 6.7 X10^3/uL (2.0-7.7); Basophil# 0.03 X10^3/uL; Basophil% 0.3 % (0-1); Eosinophil# 0.37 X10^3/uL; Eosinophils% 3.7 % (0-5); Hematocrit 37.9 % (37-47); Hemoglobin 11.7 g/dL (12.0-15.0); Lymphocyte # 2.16 X10^3/ul (0.83-4.51); Lymphocyte % 21.6 % (19-41); Mean Corp Hgb Conc 30.9 g/dL (32-36); Mean Corpuscular Hgb 29.8 pg (27.0-32.0); Mean Corpuscular Volume 96.4 fL (81-99); Mean Platelet Vol. 9.9 fl (6.2-12.0); Monocyte# 0.72 X10^3/uL; Monocyte% 7.2 % (0-10); NRBC Flagged by Analyzer 0 % (0-5); Neutrophil # 6.65 X10^3/uL (2.7-7.7); Neutrophil % 66.5 % (47-70); Platelet Count 353 K/mm3 (150-450); RBC Distribution Width CV 14.5 % (11.6-14.6); RBC Distribution Width SD 51.1 fl (35.1-43.9); Red Blood Count 3.93 M/mm3 (4.2-5.4)
[2023-09-07 15:38] LABS: Anion Gap 3 (5-15); BUN 6 mg/dL (7-18); BUN/Creat Ratio 5.8 RATIO (10-20); Calcium,Total 8.4 mg/dL (8.5-10.1); Chloride 107 mmol/L (98-107); Creatinine, Serum 1.04 mg/dL (0.55-1.02); EST Glomerular Filtration Rate 55 mL/min (>60); Est Glom Filt Rate - Afr Amer 67 mL/min (>60); Estimated Creatinine Clearance 53.85 ml/min; Glucose 90 mg/dL (74-106); Potassium 3.2 mmol/L (3.5-5.1); Sodium Level 139 mmol/L (136-145)
[2023-09-07 15:47] LABS: Mucous, Urine 0 SEEN /hpf (<or=2+); Red Blood Cells-Urine 0 SEEN /hpf (0-5); Squamous Epithelial Cells - UA 0 SEEN /hpf (5-10)
[2023-09-07 15:51] LABS: Color, Urine Yellow (Yellow); Glucose, Dipstick Normal (Normal); Ketone-Dipstick Negative (Negative); Leukocyte Esterase-Dipstick 500 /ul (Negative); Nitrite-Dipstick Positive (Negative); Occult Blood-Urine 250 /ul (Negative); Protein-Dipstick 100 mg/dl (Negative); Specific Gravity, Urine 1.015 (1.002-1.030); Urine Bilirubin Dipstick Negative (Negative); Urine Clarity Cloudy (Clear); Urine Urobilinogen Normal (Normal)
[2023-09-07 15:58] LABS: Bacteria 2+ /hpf (None Seen); White Blood Cells >100 SEEN /hpf (0-5)
[2023-09-07 16:08] VITALS: BP 117/51; PULSE 74; RESP 17; O2SAT 100
[2023-09-07 17:00] VITALS: BP 110/65; PULSE 74; RESP 15; TEMP 36.4; O2SAT 97
[2023-09-07] MEDS: Nitrofurantoin Macrocrystals 100 MG Capsule PO (17:04)
== END 2023-09-07 17:05 | disposition home or self-care (01) ==
PROVIDERS: Physician Assistant; Emergency Provider Emergency Medicine; PCP Family Medicine; Visit Provider Emergency Medicine
DX: N39.0 Urinary tract infection, site not specified (principal); Z79.899 Other long term (current) drug therapy; Z87.891 Personal history of nicotine dependence
CPT/HCPCS: 74176; 80048; 81001; 85025; 87077; 87086; 87088; 87186; 99283; A4216

== ENCOUNTER 2023-10-10 10:40 | Day surgery (SDC) | payer MEDICARE, OTHER, SELFPAY ==
[2023-10-10] VITALS (7 sets, daily range): BP systolic 100–114; BP diastolic 30–79; PULSE 86–93; RESP 16–18; TEMP 36.3–36.9; O2SAT 94–97; BMI 26.9
[2023-10-10] MEDS: Lactated Ringers 1,000 ML 15 ML IV (11:06)
[2023-10-10] MEDS: Cefazolin 2 GM in 0.9% Normal Saline (100mL Bag) 100 ML IV (12:44)
--- NOTE | 2023-10-10 13:04 | PCM.HP.STD ---
HPI - General General Date of Service: 10/10/23 Chief Complaint: Left kidney stone HPI Narrative CARLA HARRISON, is a 73 F who presents to laser left stone she had a stent placed about a month ago the stent that came out she actually pulled out the coupon for surgery to remove the stone. She never saw the stone. [facility] Medical History Alcohol use Anemia Arthritis Back pain Brain bleed Duodenal ulcer Easy bruising Former smoker Gastric reflux GI bleed History of diverticulitis History of GI bleed History of muscle spasm History of stress test Leg cramps Migraines Open wound Restless legs Seizures Wears dentures Wears glasses Home Medications pantoprazole 40 mg tablet,delayed release (Protonix) 40 mg PO DAILY GERD 05/09/21 [History Last Taken 08/29/23] cyanocobalamin (vitamin B-12) 1 tab PO DAILY 08/05/23 [History Last Taken 08/28/23] potassium gluconate 600 mg (99 mg) tablet 600 mg PO DAILY SUPPLEMENT 08/05/23 [History Last Taken 08/28/23] ascorbic acid (vitamin C) 500 mg tablet 500 mg PO DAILY@1000 30 days #30 tabs 08/29/23 [Rx Last Taken Unknown] baclofen 10 mg tablet 10 mg PO TID PRN PRN muscle spasm 09/26/23 [History Last Taken Unknown] cholecalciferol (vitamin D3) 50 mcg (2,000 unit) capsule (Vitamin D3) 50 mcg PO DAILY 09/26/23 [History Last Taken Unknown] Allergy/AdvReac Type Severity Reaction Status Date / Time Penicillins Allergy Rash Verified 09/26/23 14:28 prednisone Allergy Rash Verified 09/26/23 14:28 ibuprofen AdvReac Other Verified 09/26/23 14:28 Family History Mother Colon cancer Father Colon cancer Aunt Colon cancer Other Heart disease Surgical History History of cholecystectomy History of common bile duct surgery History of ERCP History of incisional hernia repair Hx of colonoscopy Hx of cystoscopy Hx of esophagogastroduodenoscopy S/P tubal ligation S/P wrist surgery Status post craniotomy Social History household members: none Smoking Status: Former smoker alcohol intake: never substance use type: does not use Vital Signs Vital Signs Vital Signs: 10/10/23 11:07 10/10/23 11:07 Temperature 98.5 F Temperature Source Temporal Pulse Rate 93 Respiratory Rate 18 Respiratory Pattern Normal Blood Pressure 107/30 L Blood Pressure Mean 55 Blood Pressure Source Monitor Blood Pressure Position Semi-Fowlers Blood Pressure Location Left Arm Pulse Ox 94 Oxygen Delivery Method Room Air Weight Weight: 78 kg Body Mass Index (BMI) 26.9
--- NOTE | 2023-10-10 13:05 | OP.PCM_ITS ---
Report of Operation Date of Procedure: 10/10/23 Pre-Operative Diagnosis: Left ureteral calculus Post-Operative Diagnosis: Same Surgery/Procedure Performed:: Cystoscopy left ureteroscopy diagnostic no stone no stent Description of Surgical Findings:: Patient is taken back to the operating room this with duction of general anesthesia she was placed in dorsolithotomy position. The vaginal urethral area prepped and draped in usual sterile fashion. About a month ago she underwent a cystoscopy and stent placement on the left side since then the stent has fallen out on its own she was not sure if the stone to pass or can proceed with urete roscopy and laser of the stone. Patient was taken back to the operating [facility] with induction of anesthesia placed in dorsolithotomy position. Went of the bladder with a 21 Uzbek rigid cystourethroscope but a wire up the left ureter of the wire went over the flexible ureteroscope was able to go all the way up the ureter all the kidney inspected upper pole midpole the lower pole the kidney there is no stone fragments in the kidney work way all the way down the ureter no stone points along the course of the ureter at this point the bladder was drained patient acetic reversed to follow-up in my office in 6 weeks for an ultrasound check in her left kidney but no stone was seen in the stone the past. Surgeon: Enrike Merchant Type of Anesthesia: General
--- NOTE | 2023-10-10 13:05 | DCINST_ITS ---
Discharge Instructions Diet Discharge Diet: No restrictions Activity Discharge Activity: Return to Normal Activity and May Not Drive (while taking narcotic pain medications.) Dressing / Incision Call your doctor if you observe: Fever of 101 or Higher Follow Up Care Please Follow Up With: Enrike Merchant MD When: Call [phone] for an appointment Test Results: Test results from this visit will be discussed in further detail at your follow- up appointment, if applicable. Discharge Plan Admission Attending Provider: Enrike Merchant Primary Care Provider: Mary Smith Discharge Orders/Prescriptions Prescriptions: No Action pantoprazole [Protonix] 40 MG tablet,delayed release (DR/EC) 40 mg PO DAILY cyanocobalamin (vitamin B-12) 1 tab PO DAILY potassium gluconate 600 mg (99 mg) tablet 600 mg PO DAILY ascorbic acid (vitamin C) 500 mg Tablet 500 mg PO DAILY@1000 30 Days Qty: 30 0RF cholecalciferol (vitamin D3) [Vitamin D3] 50 mcg (2,000 unit) capsule 50 mcg PO DAILY baclofen 10 mg Tablet 10 mg PO TID PRN PRN (Reason: muscle spasm) Referrals / Follow Up: Mary Smith DO [Primary Care Provider] - Disposition Disposition (needs filled in before D/C Order can be placed): Home, Self Care
== END 2023-10-10 14:06 | disposition home or self-care (01) ==
LOC: SDC 10:40 → AC 10:42
PROVIDERS: PCP Family Medicine; Referring Provider Urology; Visit Provider Urology
PROC: 0TJ98ZZ Inspection of Ureter, Via Natural or Artificial Opening Endoscopic (ICD-10-PCS; CPT 52352; principal; 2023-10-10 12:40)
DX: Z87.442 Personal history of urinary calculi (principal); Z87.891 Personal history of nicotine dependence; K21.9 Gastro-esophageal reflux disease without esophagitis; Z79.899 Other long term (current) drug therapy
CPT/HCPCS: 52351; 00910; 76000; J7120; C1769; J2405

== ENCOUNTER → 2023-11-26 | Outpatient (CLI) | payer MEDICARE, OTHER, SELFPAY ==
[2023-11-26 15:33] LABS: Absolute Lymphocyte Count 2.27 X10^3/uL (0.83-4.51); Basophil# 0.04 X10^3/uL; Basophil% 0.6 % (0-1); Eosinophil# 0.13 X10^3/uL; Eosinophils% 1.9 % (0-5); Hematocrit 40.2 % (37-47); Hemoglobin 12.3 g/dL (12.0-15.0); Lymphocyte # 2.27 X10^3/ul (0.83-4.51); Lymphocyte % 32.4 % (19-41); Mean Corp Hgb Conc 30.6 g/dL (32-36); Mean Corpuscular Hgb 28.1 pg (27.0-32.0); Mean Corpuscular Volume 91.8 fL (81-99); Mean Platelet Vol. 10.6 fl (6.2-12.0); Monocyte# 0.53 X10^3/uL; Monocyte% 7.6 % (0-10); NRBC Flagged by Analyzer 0 % (0-5); Neutrophil # 4.01 X10^3/uL (2.7-7.7); Neutrophil % 57.2 % (47-70); Platelet Count 236 K/mm3 (150-450); RBC Distribution Width CV 15.8 % (11.6-14.6); RBC Distribution Width SD 53.5 fl (35.1-43.9); Red Blood Count 4.38 M/mm3 (4.2-5.4)
== END | disposition home or self-care (01) ==
LOC: BFHLAB 13:54
PROVIDERS: PCP Family Medicine; Referring Provider Family Medicine; Visit Provider Family Medicine
DX: Z51.81 Encounter for therapeutic drug level monitoring (principal); K80.50 Calculus of bile duct without cholangitis or cholecystitis without obstruction
CPT/HCPCS: 36415; 80053; 85025

== ENCOUNTER → 2023-11-27 | Outpatient (CLI) | payer MEDICARE, OTHER, SELFPAY ==
[2023-11-27 12:57] LABS: ALB/GLOB Ratio 0.9 RATIO (0.9-2.4); AST(SGOT) 45 U/L (15-37); Alanine Aminotransfer ALT/SGPT 28 U/L (13-56); Albumin, Serum 3.2 g/dL (3.2-5.0); Alkaline Phosphatase 108 U/L (45-117); Anion Gap 5 (5-15); BUN 10 mg/dL (7-18); BUN/Creat Ratio 14.4 RATIO (10-20); Calcium,Total 8.7 mg/dL (8.5-10.1); Chloride 105 mmol/L (98-107); EST Glomerular Filtration Rate 88 mL/min (>60); Est Glom Filt Rate - Afr Amer 107 mL/min (>60); Globulin 3.7 g/dL (2.2-4.2); Glucose 104 mg/dL (74-106); Potassium 3.9 mmol/L (3.5-5.1); Protein, Total 6.9 g/dL (6.4-8.2); Sodium Level 139 mmol/L (136-145)
== END | disposition home or self-care (01) ==
LOC: BFHLAB 10:43
PROVIDERS: PCP Family Medicine; Referring Provider Family Medicine; Visit Provider Family Medicine
DX: K80.50 Calculus of bile duct without cholangitis or cholecystitis without obstruction (principal); Z51.81 Encounter for therapeutic drug level monitoring
CPT/HCPCS: 36415; 80053

== ENCOUNTER 2024-02-05 06:36 | Day surgery (SDC) | payer MEDICARE, OTHER, SELFPAY ==
[2024-02-05] VITALS (7 sets, daily range): BP systolic 89–95; BP diastolic 50–62; PULSE 72–88; RESP 14–18; TEMP 36.3–36.6; O2SAT 95–100; BMI 26.9
[2024-02-05] MEDS: Lactated Ringers 1,000 ML 15 ML IV (06:59)
--- NOTE | 2024-02-05 07:12 | H&P.OPEN ---
[facility] Date of Service: 02/05/24 [facility] Narrative CARLA HARRISON, is a 73 F who presents for screening colonoscopy due to history of colon polyps. Patient's last colonoscopy was 10 to [address] Plata --patient reports some polyps at that time. Patient's dad did have a colectomy due to bowel per patient and mom also had some polyps but no colon cancer. No family history of colon cancer. Patient did have an ulcer where she had part of her stomach and duodenum excised at [facility] As well as a cholecystectomy. No history of colectomy per patient's sister. [facility] Medical History (Updated 02/05/24 @ 07:[address] Becky Gongora MD) Personal history of colonic polyps Wears glasses Open wound Migraines Brain bleed Wears dentures Alcohol use Arthritis Anemia Easy bruising Restless legs Back pain Seizures History of GI bleed History of diverticulitis Gastric reflux Former smoker History of stress test History of muscle spasm Leg cramps Duodenal ulcer GI bleed Home Medications ?Medication ?Instructions ?Recorded ?Last Taken ?Type pantoprazole 40 mg tablet,delayed 40 mg PO DAILY GERD 05/09/21 02/05/24 History release (Protonix) cyanocobalamin (vitamin B-12) 1 tab PO DAILY 08/05/23 08/28/23 History potassium gluconate 600 mg (99 mg) 600 mg PO DAILY SUPPLEMENT 08/05/23 08/28/23 History tablet ascorbic acid (vitamin C) 500 mg 500 mg PO DAILY@1000 30 days #30 08/29/23 Unknown Rx tablet tabs baclofen 10 mg tablet 10 mg PO TID PRN PRN muscle spasm 09/26/23 Unknown History cholecalciferol (vitamin D3) 50 50 mcg PO DAILY 09/26/23 Unknown History mcg (2,000 unit) capsule (Vitamin D3) loratadine 10 mg tablet (Claritin) 10 mg PO DAILY 01/29/24 Unknown History Allergy/AdvReac Type Severity Reaction Status Date / Time Penicillins Allergy Rash Verified 02/05/24 06:54 prednisone Allergy Rash Verified 02/05/24 06:54 ibuprofen AdvReac Bleeding Verified 02/05/24 06:54 Family History (Updated 01/29/24 @ 16:11 by Toyin Pizano) Mother Colon cancer Hx of colectomy Father Colon cancer Aunt Colon cancer Uncle Colon cancer Grandfather Colon cancer Other Heart disease Surgical History (Updated 01/30/24 @ 12:40 by Milli Mcgregor) History of partial colectomy Hx of cystoscopy History of ERCP History of incisional hernia repair History of common bile duct surgery History of cholecystectomy Hx of colonoscopy Hx of esophagogastroduodenoscopy S/P tubal ligation Status post craniotomy S/P wrist surgery Social History (Updated 01/29/24 @ 16:12 by Toyin Pizano) household members: none and other housing: house current occupational status: retired Smoking Status: Former smoker alcohol intake: never substance use type: does not use Past Medical/Surgical History Planned Operation Planned Operative Procedure(s): colonoscopy Previous Hospitalizations/Surgeries HX Hospitalizations: No ([facility]) HX of Surgeries: subdural hematoma repair Rt wrist fx repair D&C Any Problems With Anesthesia: No You/Your Family Experience Fever (Hyperthermia) With Anes: No Cholinesterase deficiency: No Cardiovascular Hx Chest Pain within Last 2 months: No Hx of Irregular Heartbeat and/or Afib: No Hx Heart Attack: No Hx Congestive Heart Failure: No Hx Rheumatic Fever: No Hx Hypertension: No Hx Internal Defibrillator: No Hx Pacemaker: No Hx Cardiac Catheterization: No Hx Cardiac Surgery/Stents/Etc.: No Hx Stress Test: Yes Hx Pain in Legs when Walking/Leg Cramps: Yes (Michael Horse) Respiratory Chronic Cough: No HX of Shortness of Breath: No Hoarseness: No Hx Chronic Obstructive Pulmonary Disease (COPD): No Hx Asthma: No Hx Emphysema: No Hx Sleep Apnea: No CPAP: No BIPAP: No Hx Respiratory Tract Infection/Cold (presently): No Do You Snore Loudly (louder than talking or can be heard): No Do You Often Feel Tired/ Fatigued/ Sleepy Dring Daytime?: No Has Anyone Observed You Stop Breathing During Sleep?: No Result (for STOP score): Negative Hx Smoking: Yes Smoking Status: Former smoker Gastrointestinal Controlled With Meds: No Hx Gastrointestinal Disorders: Yes (diverticulitis) Hx Gastrointestinal Bleed: No Hx Ulcer: Yes Hx Hiatal Hernia: No Difficulty Chewing/Swallowing: No Hx Unplanned Weight Loss of 20#: No Neurological Hx Seizures: Yes HX Syncope/Blackout Spells/Unconsciousness: Yes (secondary to brain bleed) Hx Transient Ischemic Attacks (TIA): No Hx Multiple Sclerosis: No Hx Parkinson's Disease: No Hx Head/Neck Injury: No Hx Headaches: Yes Hx Back Injury/Pain: Yes (Fx T10) Restless Legs: No Does patient have nerve stimulator: No Blood Disorder Hx Leukemia: No Bleeding Tendencies: Yes Hx Deep Vein Thrombosis: No Hx High Cholesterol: No Hx Hepatitis: No Hx Cirrhosis: No Hx Anemia: Yes Hx Blood Disorders: No Reproduction : No Hx Tubal Ligation: Yes Genitourinary Hx Renal Disease: No Hx Dialysis: No Musculoskeletal Hx Rheumatoid Arthritis: No Endocrine Hx Diabetes: No Insulin: No Thyroid Disease: No Hx Steroid Therapy: No Psycho/Social Hx Substance Use: No Hx Alcohol Use: No Hx Anxiety: No Hx Depression: No Mental Illness: No Hx Dementia: No Miscellaneous Hx Cancer: No Recent Exposure to Contagious Disease: No Any Loose Teeth: No Allergies Penicillins Allergy (Verified 02/05/24 06:54) Rash prednisone Allergy (Verified 02/05/24 06:54) Rash ibuprofen Adverse Reaction (Verified 02/05/24 06:54) Bleeding NOT TO TAKE DUE TO PAST BRAIN BLEED Maternal: Family History (Updated 01/29/24 @ 16:11 by Toyin Pizano) Mother Colon cancer Hx of colectomy Father Colon cancer Aunt Colon cancer Uncle Colon cancer Grandfather Colon cancer Other Heart disease Cancer Paternal: Family History (Updated 01/29/24 @ 16:11 by Toyin Pizano) Mother Colon cancer Hx of colectomy Father Colon cancer Aunt Colon cancer Uncle Colon cancer Grandfather Colon cancer Other Heart disease No pertinent history Discharge Is Pt Admitted From a [facility], or a Halfway: No Who Could Help: SISTER After D/C, Where Do you Plan to Go: Return Home From the PAT History Number of Risk Factors: 3 Vital Signs Vital Signs Vital Signs: 02/05/24 06:55 02/05/24 06:55 Temperature 97.8 F Temperature Source Temporal Pulse Rate 88 Respiratory Rate 18 Respiratory Pattern Normal Blood Pressure 93/56 L Blood Pressure Mean 68 Blood Pressure Source Monitor Blood Pressure Position Semi-Fowlers Blood Pressure Location Left Arm Pulse Ox 100 Oxygen Delivery Method Room Air Weight Weight: 166 lb 8.595 oz Body Mass Index (BMI) 26.9 Physical Exam Const alert, oriented x3 and no apparent distress HEENT normocephalic and head/scalp atraumatic Resp normal respiratory effort Cardio regular rate GI soft to palpation and non-tender; Negative for non-distended Palpation: Negative for guarding Extremity no clubbing, cyanosis or edema Skin no rashes or lesions noted Neuro CN's II-XII intact bilaterally Psych mental status grossly normal Assessment & Plan Assessment/Plan (1) Personal history of colonic polyps: Surgery Risks - Colonoscopy I discussed with the patient the risks of the procedure: Yes Risks Include but are not Limited To: Risks include but are not limited to: Bleeding, perforation requiring further surgery, inability to complete colonoscopy requiring barium enema.
--- NOTE | 2024-02-05 07:24 | PCM.PRE.AN2 ---
ASA Classification* ASA Classification ASA Classification: 3 Assessment & Plan Anesthesia* Anesthesia Assessment Anesthesia Assessment: Discussed sedation and/or anesthesia options, risks, benefits, and alternatives with patient/parents/legal guardian/POA. Questions invited. The patient/parents/legal guardian/POA seems to understand and agrees to proceed with anesthesia plan. Reviewed the physical assessment, medical history, allergy history and patient home medications list prior to surgery/procedure/anesthetic and documented any changes. Performed airway and anesthesia risk assessments. Anesthesia Type Anesthesia Type: MAC (see written pre anesthesia record for full assessment ) Anesthesia Focused Assessment* Temperature: 97.8 F Pulse Rate: 88 Blood Pressure: 93/56 Respiratory Rate: 18 Pulse Ox: 100 Airway Assessment Mouth opens: >3 cm Mallampati Score: II Focused Labs Anesthesia Preop lab: CBC WBC 7.0 K/mm3 (4.4-11.0) 11/26/23 13:56 RBC 4.38 M/mm3 (4.2-5.4) 11/26/23 13:56 Hgb 12.3 g/dL (12.0-15.0) 11/26/23 13:56 Hct 40.2 % (37-47) 11/26/23 13:56 Plt Count 236 K/mm3 (150-450) 11/26/23 13:56 CHEMISTRY Potassium 3.9 mmol/L (3.5-5.1) 11/27/23 10:45 Sodium 139 mmol/L (136-145) 11/27/23 10:45 Magnesium 1.9 mg/dL (1.6-2.6) 08/10/23 07:58 Phosphorus 2.4 mg/dL (2.5-4.9) L 08/10/23 07:58 BUN 10 mg/dL (7-18) 11/27/23 10:45 Creatinine 0.70 mg/dL (0.55-1.02) 11/27/23 10:45 Glucose 104 mg/dL (74-106) 11/27/23 10:45 POC Glucose 118 mg/dL (70-110) H 09/02/14 11:20 TSH 1.75 uIU/mL (0.358-3.74) 02/02/22 09:16 COAG PT 15.1 SECONDS (11.7-14.9) H 10/19/21 13:40 Pre-Assessment Diagnosis/Proposed Procedure Planned Operative Procedure(s): colonoscopy Anesthesia History 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 When Was Last Pacemaker Check QUESTION #4 FULL TEXT: You/Your Family Experience fever (hyperthermia) with Anesthesia Last Oral Intake Last Oral intake: Last Oral Intake NPO since Meds taken in AM with sips of water? Meds patient instructed to take am of surgery PONV PONV - kohinoor operator: PONV - kohinoor operator Female Yes 01/30/24 12:30 HX of Motion Sickness No 01/30/24 12:30 HX of N/V After Surgery No 01/30/24 12:30 Non-Smoker Yes 01/30/24 12:30 Duration of Surgery greater No 01/30/24 12:30 than 60 minutes Number of Risk Factors 2 01/30/24 12:30 PONV Score Moderate Risk 01/30/24 12:30 Height & Weight Height & Weight: Anesthesia: Height & Weight Height 5 ft 6 in 02/05/24 06:55 Weight: 75.54 kg 02/05/24 06:55 Body Mass Index (BMI) 26.9 02/05/24 06:55 Respiratory Assessment Respiratory Assessment - kohinoor operator: Respiratory Tract Infection Hx - kohinoor operator Hx Respiratory Tract Infection No 02/05/24 07:17 STOP Sleep Apnea STOP Sleep Apnea - kohinoor operator: STOP Sleep Apnea - kohinoor operator Hx Hypertension No 02/05/24 07:17 Hx Sleep Apnea No 02/05/24 07:17 CPAP No 02/05/24 07:17 BIPAP No 02/05/24 07:17 Do you snore loudly (louder No 02/05/24 07:17 than talking or can be heard Do you often feel tired/ No 02/05/24 07:17 fatigued/ sleepy during daytime? Has anyone observed you stop No 02/05/24 07:17 breathing during sleep? STOP Results Negative 02/05/24 07:17 QUESTION #5 FULL TEXT : Do you snore loudly (louder than talking or can be heard through closed doors)? 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 Specify any problems Hx of Preganancy in last 3 No 01/30/24 12:30 Months Nurse Filling Out Transfusion [facility] 01/30/24 12:30 & Questions: Date: 01/30/24 01/30/24 12:30 Time: 12:33 01/30/24 12:30 Patient unable to answer at this time (ie. confused, unrespo /Reproduction History /Reproductive History - kohinoor operator: /Reproductive Hx- kohinoor operator Hx Now No 02/05/24 07:17 Gestational Age (in weeks): EDC: Hx Hx Para Hx Section SAB No 01/30/24 12:30 Active Medications Active Medications: Current Medications Generic Name Dose Route Start Last Admin Trade Name Freq PRN Reason Stop Dose Admin Lactated Ringer's 1,000 mls @ 15 mls/hr 02/05/24 06:45 02/05/24 06:59 IV 15 mls/hr .Q48H JACQUELINE Administration PFSH Medical History Personal history of colonic polyps Wears glasses Open wound Migraines Brain bleed Wears dentures Alcohol use Arthritis Anemia Easy bruising Restless legs Back pain Seizures History of GI bleed History of diverticulitis Gastric reflux Former smoker History of stress test History of muscle spasm Leg cramps Duodenal ulcer GI bleed Home Medications ?Medication ?Instructions ?Recorded ?Last Taken ?Type pantoprazole 40 mg tablet,delayed 40 mg PO DAILY GERD 05/09/21 02/05/24 History release (Protonix) cyanocobalamin (vitamin B-12) 1 tab PO DAILY 08/05/23 08/28/23 History potassium gluconate 600 mg (99 mg) 600 mg PO DAILY SUPPLEMENT 08/05/23 08/28/23 History tablet ascorbic acid (vitamin C) 500 mg 500 mg PO DAILY@1000 30 days #30 08/29/23 Unknown Rx tablet tabs baclofen 10 mg tablet 10 mg PO TID PRN PRN muscle spasm 09/26/23 Unknown History cholecalciferol (vitamin D3) 50 50 mcg PO DAILY 09/26/23 Unknown History mcg (2,000 unit) capsule (Vitamin D3) loratadine 10 mg tablet (Claritin) 10 mg PO DAILY 01/29/24 Unknown History Allergy/AdvReac Type Severity Reaction Status Date / Time Penicillins Allergy Rash Verified 02/05/24 06:54 prednisone Allergy Rash Verified 02/05/24 06:54 ibuprofen AdvReac Bleeding Verified 02/05/24 06:54 Family History Mother Colon cancer Hx of colectomy Father Colon cancer Aunt Colon cancer Uncle Colon cancer Grandfather Colon cancer Other Heart disease Surgical History History of partial colectomy Hx of cystoscopy History of ERCP History of incisional hernia repair History of common bile duct surgery History of cholecystectomy Hx of colonoscopy Hx of esophagogastroduodenoscopy S/P tubal ligation Status post craniotomy S/P wrist surgery Social History household members: none and other housing: house current occupational status: retired Smoking Status: Former smoker alcohol intake: never substance use type: does not use Review of Systems (Anesthesia) ROS Narrative System reviewed and no additional complaints, except as documented.
--- NOTE | 2024-02-05 08:38 | OP.CCLET_ITS ---
02/05/2024 Mary Smith [address] [place] [address] Re : Colonoscopy procedure for Brooke Sanchez Dear Dr. Smith This procedure was performed on Monday, February 05, 2024. My impressions and recommendations are as follows: Impressions : - Diverticulosis in the entire examined colon. - The entire examined colon is normal on direct and retroflexion views. - No specimens collected. Recommendations : - Discharge patient to home. - Resume previous diet. - Continue present medications. - Repeat screening colonoscopy not needed due to age. My findings are described in the full procedure note, which is enclosed. If I can be of further assistance, please feel free to contact me at Doctor phone number(s): , Work: . Sincerely, MD Becky Ramsey MD 02/05/2024 8:37:25 AM This report has been signed electronically.
--- NOTE | 2024-02-05 08:38 | OP.COLON_ITS ---
Patient Name: Brooke Sanchez Procedure Date: 02/05/2024 8:08 AM Date of : 1950 Age: 73 Procedure: Colonoscopy Indications: Screening for colorectal malignant neoplasm Providers: Becky Gongora MD Referring MD: Becky Gongora MD Medicines: Monitored Anesthesia Care Patient Profile: This is a 73 year old female. Last Colonoscopy: 2012. Complications: No immediate complications. Procedure: Pre-Anesthesia Assessment: - Prior to the procedure, a History and Physical was performed, and patient medications and allergies were reviewed. The patient's tolerance of previous anesthesia was also reviewed. The risks and benefits of the procedure and the sedation options and risks were discussed with the patient. All questions were answered, and informed consent was obtained. Prior Anticoagulants: The patient has taken no anticoagulant or antiplatelet agents. ASA Grade Assessment: Per anesthesia. After reviewing the risks and benefits, the patient was deemed in satisfactory condition to undergo the procedure. After I obtained informed consent, the scope was passed under direct vision. Throughout the procedure, the patient's blood pressure, pulse, and oxygen saturations were monitored continuously. The Colonoscope was introduced through the anus and advanced to the cecum, identified by the appendiceal orifice, ileocecal valve and palpation. The colonoscopy was performed without difficulty. The patient tolerated the procedure well. The quality of the bowel preparation was good. Scope In: 8:15:03 AM Scope Withdrawal Time 0 hours 8 minutes 14 seconds Scope Out: 8:29:58 AM Total Procedure Duration Time 0 hours 14 minutes 55 seconds Findings: The perianal and digital rectal examinations were normal. Multiple small-mouthed diverticula were found in the entire colon. The entire examined colon appeared normal on direct and retroflexion views. Impression: - Diverticulosis in the entire examined colon. - The entire examined colon is normal on direct and retroflexion views. - No specimens collected. Recommendation: - Discharge patient to home. - Resume previous diet. - Continue present medications. - Repeat screening colonoscopy not needed due to age. Procedure Code(s): --- Professional --- G0121, PT, Colorectal cancer screening; colonoscopy on individual not meeting criteria for high risk Diagnosis Code(s): --- Professional --- Z12.11, Encounter for screening for malignant neoplasm of colon K57.30, Diverticulosis of large intestine without perforation or abscess without bleeding CPT copyright 2022 [employer]. All rights reserved. The codes documented in this report are preliminary and upon travel specialist review may be revised to meet current compliance requirements. MD Becky aRmsey MD 02/05/2024 8:37:25 AM This report has been signed electronically. Number of Addenda: 0 Note Initiated On: 02/05/2024 8:08 AM
--- NOTE | 2024-02-05 08:39 | PCM.POST.ANE ---
Anesthesia: Postop Eval I Current Vital Signs Temperature: 97.4 F Pulse Rate: 83 Blood Pressure: 91/53 Respiratory Rate: 16 Pulse Ox: 98 Oxygen Delivery Method: Room Air Assessment Airway patent: Yes Spontaneous unlabored respirations: Yes Mental status: Awake nausea: No Vomiting: No Anesthesia Complication: No Fluid Hydration Crystalloid volume administer (ml): 600 Total IV fluid infused: 600 Progress Note Anesthesia document: Postop Eval 1 completed: Yes
--- NOTE | 2024-02-05 08:44 | PCM.POSTANE2 ---
Anesthesia Postop Eval I Sum Postop Eval Completion status Anesthesia document: Postop Eval 1 completed: Yes Anesthesia Postop Eval I Summary Anesthesia Postop Eval I Summary: Anesthesia Postop Eval I: Assessment Summary Airway patent Yes 02/05/24 08:40 [email or web address] Spontaneous unlabored Yes 02/05/24 08:40 [email or web address] respirations Mental status Awake 02/05/24 08:40 [email or web address] nausea No 02/05/24 08:40 [email or web address] Vomiting No 02/05/24 08:40 [email or web address] Anesthesia Postop Eval I: Fluid Summary Crystalloid volume administer 600 02/05/24 08:40 [email or web address] (ml) Colloids volume administered ( ml) Blood Product volume administered (ml) Total IV fluid infused 600 02/05/24 08:40 [email or web address] Anesthesia Postop Eval I: Summary Notes Anesthesia Complication No 02/05/24 08:40 [email or web address] Anesthesia Complication Comment: Post-operative progress note Anesthesia: Postop Eval II Evaluation Mental status: Awake Pain Level: 0 nausea: No Vomiting: No
== END 2024-02-05 09:15 | disposition home or self-care (01) ==
LOC: EN 06:37 → AC 06:38
PROVIDERS: PCP Family Medicine; Referring Provider Family Medicine; Visit Provider Surgery
PROC: 0DJD8ZZ Inspection of Lower Intestinal Tract, Via Natural or Artificial Opening Endoscopic (ICD-10-PCS; CPT 45378; principal; 2024-02-05 07:55)
DX: Z12.11 Encounter for screening for malignant neoplasm of colon (principal); K57.30 Diverticulosis of large intestine without perforation or abscess without bleeding; Z87.891 Personal history of nicotine dependence; Z80.0 Family history of malignant neoplasm of digestive organs; Z86.010 Personal history of colon polyps; K21.9 Gastro-esophageal reflux disease without esophagitis; Z79.899 Other long term (current) drug therapy; Z90.49 Acquired absence of other specified parts of digestive tract
CPT/HCPCS: G0121; J7120; J2405

== ENCOUNTER → 2024-04-29 | Outpatient (CLI) | payer MEDICARE, OTHER, SELFPAY | END | disposition home or self-care (01) | LOC: CT 12:52 | PROVIDERS: PCP Family Medicine; Referring Provider Nurse Practitioner Adult Health; Visit Provider Nurse Practitioner Adult Health | DX: T84.498A Other mechanical complication of other internal orthopedic devices, implants and grafts, initial encounter (principal) | CPT/HCPCS: 70450 ==

== ENCOUNTER 2024-07-03 13:58 | Inpatient (IN) | payer MEDICARE, OTHER, SELFPAY ==
[2024-07-03 14:15] VITALS: BP 93/57; PULSE 90; RESP 15; TEMP 37.4; O2SAT 96
--- NOTE | 2024-07-03 19:23 | HP.PCM_ITS ---
HPI - General General Date of Admission: 07/03/24 Date of Service: 07/03/24 Chief Complaint: Here for rehabilitation, intravenous antibiotics. HPI Narrative CARLA HARRISON, is a 74 Female who presents with followin09/05/2021 Right subdural hematoma requiring surgical treatment at [email or web address] 10/19/2021 Right epidural hematoma requiring surgical treatment at [facility] [[email or web address] 06/27/2024 Admit to [facility]. Dr. Rodriguez, neurosurgery, performed left craniotomy for removal of infected bone flap and exposed hardware, purulent material under scalp. Labetalol, Hydralazine as needed for systolic blood pressure > 150. Pain control. Vancomycin/Zosyn IV, Infectious Disease consult, follow up surgical cultures, for infected bone flap. 06/28/2024 CT brain showed left hemicraniectomy inferior aspect of craniectomy extra-axial hematoma, left frontal pneumocephalus, ventricular sulci normal, trace left to right midline shift. 06/30/2024 Headache. Tylenol, Oxycodone for pain. Neurosurgery signed off. Labetalol/Hydralazine PRN elevated blood pressure. Oxygen, Duoneb as needed for respiratory status. Cranial cultures growing staph aureus. ID recommended Vancomycin, stopped Cefepime. 07/02/2024 PICC line placed left upper extremity. Patient needs Vancomycin IV for 6 weeks total. 07/03/2024 Admit to TCU with debility, here for rehabilitation, strengthening, intravenous antibiotics, prior to discharge home alone. [facility] Medical History Personal history of colonic polyps Wears glasses Open wound Migraines Brain bleed Wears dentures Alcohol use Arthritis Anemia Easy bruising Restless legs Back pain Seizures History of GI bleed History of diverticulitis Gastric reflux Former smoker History of stress test History of muscle spasm Leg cramps Duodenal ulcer GI bleed Home Medications ?Medication ?Instructions ?Recorded ?Last Taken ?Type pantoprazole 40 mg tablet,delayed 40 mg PO DAILY GERD 05/09/21 02/05/24 History release (Protonix) cyanocobalamin (vitamin B-12) 1 tab PO DAILY supplemen t 08/05/23 08/28/23 History potassium gluconate 600 mg (99 mg) 600 mg PO DAILY SUP PLEMENT 08/05/23 08/28/23 History tablet baclofen 10 mg tablet 10 mg PO BID PRN muscle spas m 09/26/23 Unknown History cholecalciferol (vitamin D3) 50 50 mcg PO DAILY supple ment 09/26/23 Unknown History mcg (2,000 unit) capsule (Vitamin D3) loratadine 10 mg tablet (Claritin) 10 mg PO DAILY parker rgies 01/29/24 Unknown History acetaminophen 500 mg capsule 1,000 mg PO Q8H pain 06/06 Unknown History ascorbic acid (vitamin C) 500 mg 500 mg PO DAILY suppl ement 07/03/24 Unknown History tablet mupirocin 2 % topical ointment 1 applic topical BID oi ntment for 07/03/24 Unknown History incision sennosides 8.6 mg capsule (senna) 8.6 mg PO DAILY stoo l softner 07/03/24 Unknown History Allergy/AdvReac Type Severity Reaction Status Date / Time Penicillins Allergy Rash Verified 02/05/24 06:54 prednisone Allergy Rash Verified 02/05/24 06:54 ibuprofen AdvReac Bleeding Verified 02/05/24 06:54 Family History Mother Colon cancer Hx of colectomy Father Colon cancer Aunt Colon cancer Uncle Colon cancer Grandfather Colon cancer Other Heart disease Surgical History History of partial colectomy Hx of cystoscopy History of ERCP History of incisional hernia repair History of common bile duct surgery History of cholecystectomy Hx of colonoscopy Hx of esophagogastroduodenoscopy S/P tubal ligation Status post craniotomy S/P wrist surgery Social History household members: none and other housing: house current occupational status: retired Smoking Status: Former smoker alcohol intake: never substance use type: does not use ROS Constitutional Constitutional: Reports weakness; Denies chills, fever(s) or weight gain ENT HEENT: Reports headache(s); Denies nasal congestion or nasal discharge Cardiovascular Cardiovascular: Denies chest pain or palpitations Respiratory/Chest Respiratory/Chest: Denies cough, excessive phlegm production or shortness of breath with exertion Gastrointestinal Gastrointestinal: Denies abdominal pain, nausea or vomiting Genitourinary Genitourinary: Denies dysuria Musculoskeletal Musculoskeletal: Denies joint pain or joint swelling Integumentary Integumentary: Denies rash or wounds Neurologic Neurologic: Denies focal weakness, numbness or tingling Psychiatric Psychiatric: Denies anxiety, auditory hallucinations, depression, homicidal ideation or suicidal ideation Vital Signs Vital Signs Vital Signs: 07/03/24 14:15 Temperature 99.4 F H Temperature Source Temporal Pulse Rate 90 Respiratory Rate 15 Blood Pressure 93/57 L Blood Pressure Mean 69 Blood Pressure Source Monitor Blood Pressure Position Sitting Blood Pressure Location Right Arm Pulse Ox 96 Oxygen Delivery Method Room Air Weight Weight: 78.103 kg Physical Exam Const alert General Appearance: cooperative HEENT HEENT Narrative: Midline scalp incision sutures clean, dry, intact. s/p left hemicraniectomy. Eyes PERRL and EOMs intact bilaterally Neck supple, no JVD and no carotid bruits Resp normal respiratory effort, normal air movement and clear to auscultation bilaterally Cardio regular rate and regular rhythm GI normal to inspection, nondistended, normoactive bowel sounds, non-tender and non-distended Extremity normal capillary refill Extremity Narrative: Left upper extremity PICC line. General Extremity: Negative for edema Skin no rashes or lesions noted General Skin Exam: no breakdown Neuro moves all extremities Psych affect normal Appearance: appropriate Assessment & Plan Assessment/Plan (1) Debility: (2) SDH (subdural hematoma): (3) ICH (intracerebral hemorrhage): (4) Infection of cranial bone flap: (5) Staph aureus infection: (6) GERD (gastroesophageal reflux disease): (7) B12 deficiency: (8) Muscle spasm: (9) Allergic rhinitis: PLAN: Plan 74 year old female with past medical history of multiple brain bleeds, surgical treatment, hospitalized for infected left cranial bone flap, underwent removal of infected left cranial bone flap, complicated by hypertension, admitted to TCU with debility, here for rehabilitation, strengthening, intravenous antibiotics, prior to discharge home alone. * Debility - PT/OT. * Pain - Tylenol 1000mg q8. * Bowel - senna/colace 1 tablet bid. * Adult immunization - Administer pneumonia vaccine, covid vaccine, flu vaccine as appropriate. * DVT prophylaxis - Contraindicated, resident has had multiple unprovoked brain bleeds. * Vitamin C deficiency - Vitamin C 500mg daily. * Muscle spasm - Baclofen 10mg bid prn. * Vitamin D deficiency - D3 50mcg daily. * Vitamin B12 deficiency - B12 500mcg daily. * Allergic rhinitis - Loratadine 10mg daily. * Skin - Bacitracin topical bid thru 07/08/2024. * GERD - Pantoprazole 40mg daily. * S. Aureus infected bone flap s/p surgical removal - Vancomycin IV via PICC line for total 6 weeks therapy.
[2024-07-03 21:55] LABS: Creatinine, Serum 0.61 mg/dL (0.55-1.02); EST Glomerular Filtration Rate 102 mL/min (>60); Est Glom Filt Rate - Afr Amer 124 mL/min (>60); Estimated Creatinine Clearance 66.07 ml/min
[2024-07-03] MEDS: Vancomycin Trough/Random Due 1 LAB MC (22:27)
[2024-07-03] MEDS: Acetaminophen 500 MG Tablet 1000 MG PO (23:31)
[2024-07-03] MEDS: Mupirocin Ointment 22gm Tube 1 APPLIC TOPICAL (23:32)
[2024-07-03] MEDS: Vancomycin IV 1,000 MG/200 ML BAG 200 MG IV (23:58)
[2024-07-03] MEDS: 0.9% Saline Lock 10 ML Syringe IV (23:59)
--- NOTE | 2024-07-04 01:02 | PCM.RX.CS ---
Consult Antibiotic Management Pharmacy has been consulted to manage selected antibiotic: Vancomycin Type of Intervention Type of Consult: New start Labs Labs: Creatinine 0.61 mg/dL (0.55-1.02) 07/03/24 21:15 Est GFR (MDRD) Af Amer 124 mL/min (>60) 07/03/24 21:15 Est GFR (MDRD) Non-Af 102 mL/min (>60) 07/03/24 21:15 Random Vancomycin 13.0 ug/mL (0.0-15.0) 07/03/24 21:15 Dosing Weight Weight used for dosin kg Estimated Creatinine Clearance Estimated Creatinine Clearance: 66 Goal Trough Goal Trough: 15-20 mcg/mL Pharmacy Plan for Drug Dosing Pharmacy Plan for Drug Dosing: Pharmacy Service will continue to monitor and adjust dosing as required. Follow-Up Labs Follow-Up Labs: Trough: Vancomycin Date/Time Labs Ordered Labs to be done on [date and time ordered]: 07/05/24 @7442
--- NOTE | 2024-07-04 01:38 | NURSING ---
No Vancomycin order noted on patient's discharge paperwork from [facility]. Discharge ricardoy talks about patient discharging on Vancomycin and the stop date, but no order noted. [facility] contacted and spoke with nurse who had cared for patient and she pulled up Vancomycin order that patient had been on with them and she also stated that ID doctor, Dr. Honeycutt was supposed to have sent information regarding Vancomycin treatment for MRSA. Nurse was made aware that none was received that this nurse could find at nurse's station and she states she will have Dr. Honeycutt call on 07/[address] Fox made aware of Vancomycin dose and he orders to order Vancomycin as Pharmacy to dose. Pharmacy made aware of situation. Vanco trough drawn per pharmacy order from PICC line per this nurse and Vancomycin started at 0001 on 07/04
[2024-07-04] MEDS: Acetaminophen 500 MG Tablet 1000 MG PO ×3 (05:55→20:45)
[2024-07-04] MEDS: Pantoprazole Sodium 40 MG Tablet PO (05:58)
[2024-07-04 06:01] LABS: Absolute Lymphocyte Count 1.38 X10^3/uL (0.83-4.51); Absolute Neutrophil Count 4.4 X10^3/uL (2.0-7.7); Basophil# 0.02 X10^3/uL; Basophil% 0.3 % (0-1); Eosinophil# 0.38 X10^3/uL; Eosinophils% 5.5 % (0-5); Hematocrit 33.5 % (37-47); Hemoglobin 10.9 g/dL (12.0-15.0); Lymphocyte # 1.38 X10^3/ul (0.83-4.51); Mean Corp Hgb Conc 32.5 g/dL (32-36); Mean Corpuscular Hgb 29.7 pg (27.0-32.0); Mean Corpuscular Volume 91.3 fL (81-99); Mean Platelet Vol. 9.9 fl (6.2-12.0); Monocyte# 0.71 X10^3/uL; Monocyte% 10.3 % (0-10); NRBC Flagged by Analyzer 0 % (0-5); Neutrophil # 4.38 X10^3/uL (2.7-7.7); Neutrophil % 63.3 % (47-70); Platelet Count 151 K/mm3 (150-450); RBC Distribution Width CV 14.3 % (11.6-14.6); RBC Distribution Width SD 48.1 fl (35.1-43.9); Red Blood Count 3.67 M/mm3 (4.2-5.4); White Blood Count 6.9 K/mm3 (4.4-11.0)
[2024-07-04 06:48] LABS: Anion Gap 5 (5-15); BUN 12 mg/dL (7-18); BUN/Creat Ratio 22.7 RATIO (10-20); Calcium,Total 8.6 mg/dL (8.5-10.1); Chloride 108 mmol/L (98-107); Creatinine, Serum 0.53 mg/dL (0.55-1.02); EST Glomerular Filtration Rate 120 mL/min (>60); Est Glom Filt Rate - Afr Amer 146 mL/min (>60); Estimated Creatinine Clearance 66.07 ml/min; Glucose 109 mg/dL (74-106); Sodium Level 139 mmol/L (136-145)
--- NOTE | 2024-07-04 07:58 | NURSING ---
Patient getting up unassisted after patient instructed to use call light multiple times. Updated Dr. Fox. New order for personal alarm. VORB.
[2024-07-04 08:53] VITALS: BP 106/55; PULSE 89; RESP 16; TEMP 35.7; O2SAT 95
[2024-07-04] MEDS: Mupirocin Ointment 22gm Tube 1 APPLIC TOPICAL ×2 (08:58→20:44)
[2024-07-04] MEDS: Loratadine 10 MG Tablet PO (08:58)
[2024-07-04] MEDS: Cholecalciferol (VIT D3) 25 MCG TABLET (1,000 UNITS) 50 MCG PO (08:59)
[2024-07-04] MEDS: Cyanocobalamin 500 MCG Tablet PO (08:59)
[2024-07-04] MEDS: Ascorbic Acid 500 MG Tablet PO (08:59)
--- NOTE | 2024-07-04 09:37 | NURSING ---
Clinical Rehabilitation Coordinator Note; Activity Asset: Sandor Cox has been a resident of [facility] in the past. She is independent in her choice of daily activities. 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 Staff will encourage social activities, remind her of weekly activities and respect her right to say no.
[2024-07-04] MEDS: Nystatin Powder 15gm Bottle 1 APPLIC TOPICAL ×2 (11:01→20:44)
[2024-07-04] MEDS: 0.9% Saline Lock 10 ML Syringe IV (11:02)
[2024-07-04] MEDS: Tuberculin,Purif.prot.deriv. 50 TU/ML Vial 0.1 ML ID (11:02)
[2024-07-04] MEDS: Vancomycin IV 1,000 MG/200 ML BAG 200 MG IV (11:02)
--- NOTE | 2024-07-04 13:32 | PCM.CONS.GEN ---
Assessment & Plan Assessment/Plan (1) Infection of cranial bone flap: PLAN: Reviewed [facility] records, will request culture results and ID notes from there. Plan at this point is 6 weeks of abx from surgery with hardware removal 06/27/24. Stop date 08/08/24. Will follow, thank you HPI Consult Data Date of Consult: 07/04/24 HPI Narrative Reason for Consultation: osteo HPI Narrative: CARLA HARRISON, is a 74 F who had subdural hematoma requiring surgery in 2021. Starting 05/2024, had wound over L forehead. Saw her neurosurgeon. Reported mild headache, no redness/drainage/fever. Taken to OR 06/27/[address] Rodriguez at [facility] for craniotomy with I&D and removal of exposed hardware. ID consulted, cx with MRSA, discharged on iv vanc for 6 week course to TCU. Feeling well, no issues with incision or picc. [place] still in place, no n/v/d. Full ROS performed and neg except as noted above. ON LICENSE OF [facility] Medical History Personal history of colonic polyps Wears glasses Open wound Migraines Brain bleed Wears dentures Alcohol use Arthritis Anemia Easy bruising Restless legs Back pain Seizures History of GI bleed History of diverticulitis Gastric reflux Former smoker History of stress test History of muscle spasm Leg cramps Duodenal ulcer GI bleed Home Medications ?Medication ?Instructions ?Recorded ?Last Taken ?Type pantoprazole 40 mg tablet,delayed 40 mg PO DAILY GERD 05/09/21 02/05/24 History release (Protonix) cyanocobalamin (vitamin B-12) 1 tab PO DAILY supplement 08/05/23 08/28/23 History potassium gluconate 600 mg (99 mg) 600 mg PO DAILY SUPPLEMENT 08/05/23 08/28/23 History tablet baclofen 10 mg tablet 10 mg PO BID PRN muscle spasm 09/26/23 Unknown History cholecalciferol (vitamin D3) 50 50 mcg PO DAILY supplement 09/26/23 Unknown History mcg (2,000 unit) capsule (Vitamin D3) loratadine 10 mg tablet (Claritin) 10 mg PO DAILY allergies 01/29/24 Unknown History acetaminophen 500 mg capsule 1,000 mg PO Q8H pain 07/03/24 Unknown History ascorbic acid (vitamin C) 500 mg 500 mg PO DAILY supplement 07/03/24 Unknown History tablet mupirocin 2 % topical ointment 1 applic topical BID ointment for 07/03/24 Unknown History incision sennosides 8.6 mg capsule (senna) 8.6 mg PO DAILY stool softner 07/03/24 Unknown History Allergy/AdvReac Type Severity Reaction Status Date / Time Penicillins Allergy Rash Verified 02/05/24 06:54 prednisone Allergy Rash Verified 02/05/24 06:54 ibuprofen AdvReac Bleeding Verified 02/05/24 06:54 Family History Mother Colon cancer Hx of colectomy Father Colon cancer Aunt Colon cancer Uncle Colon cancer Grandfather Colon cancer Other Heart disease Surgical History History of partial colectomy Hx of cystoscopy History of ERCP History of incisional hernia repair History of common bile duct surgery History of cholecystectomy Hx of colonoscopy Hx of esophagogastroduodenoscopy S/P tubal ligation Status post craniotomy S/P wrist surgery Social History household members: none and other housing: house current occupational status: retired Smoking Status: Former smoker alcohol intake: never substance use type: does not use Physical Exam Const alert, oriented x3 and no apparent distress General Appearance: cooperative HEENT normocephalic HEENT Narrative: yao in place over L craniotomy Eyes PERRL and EOMs intact bilaterally Neck supple and No nodes Resp normal air movement and clear to auscultation bilaterally Cardio regular rate and regular rhythm GI soft to palpation, non-tender and non-distended Extremity General Extremity: Negative for edema Skin no rashes or lesions noted Neuro CN's II-XII intact bilaterally Lab / Micro Data Attestation: I reviewed the patient's lab results. 07/04/24 05:43 07/04/24 05:43 Labs: Laboratory Results - last 24 hr 07/03/24 21:15: Creatinine 0.61, Estim Creat Clear Calc 66.07, Est GFR (MDRD) Af Amer 124, Est GFR (MDRD) Non-Af 102, Random Vancomycin 13.0 07/04/24 05:43: WBC 6.9, RBC 3.67 L, Hgb 10.9 L, Hct 33.5 L, MCV 91.3, MCH 29.7, MCHC 32.5, RDW Std Deviation 48.1 H, RDW Coeff of Bria 14.3, Plt Count 151, MPV 9.9, Immature Gran % (Auto) 0.600, Neut % (Auto) 63.3, Lymph % (Auto) 20.0, O'Brien % (Auto) 10.3 H, Eos % (Auto) 5.5 H, Baso % (Auto) 0.3, Absolute Neuts (auto) 4.4, Absolute Lymphs (auto) 1.38, Nucleated RBC % 0, Sodium 139, Potassium 4.0, Chloride 108 H, Carbon Dioxide 27.0, Anion Gap 5, BUN 12, Creatinine 0.53 L, Estim Creat Clear Calc 66.07, Est GFR (MDRD) Af Amer 146, Est GFR (MDRD) Non-Af 120, BUN/Creatinine Ratio 22.7 H, Glucose 109 H, Calcium 8.6
--- NOTE | 2024-07-04 14:49 | NURSING ---
Faxed [facility] to obtain patient's medical records for ID.
--- NOTE | 2024-07-04 15:31 | PHA.CONS_ITS ---
Documented by User: Michael Chandler 07/04/24 16:46 TCU RX Drug Regimen Review Subjective/Objective Subjective/Objective Subjective: 74 year old female with past medical history of multiple brain bleeds, surgical treatment, hospitalized for infected left cranial bone flap, underwent removal of infected left cranial bone flap, complicated by hypertension, admitted to TCU with debility, here for rehabilitation, strengthening, intravenous antibiotics, prior to discharge home alone. Objective: Allergies Penicillins Allergy (Verified 02/05/24 06:54) Rash prednisone Allergy (Verified 02/05/24 06:54) Rash ibuprofen Adverse Reaction (Verified 02/05/24 06:54) Bleeding NOT TO TAKE DUE TO PAST BRAIN BLEED Current Medications Generic Name Dose Route Start Last Admin Trade Name Freq PRN Reason Stop Dose Admin Acetaminophen 1,000 mg 07/03/24 22:00 07/04/24 14:47 Acetaminophen 500 Mg Tablet PO 1,000 mg Q8 JACQUELINE Administration Ascorbic Acid 500 mg 07/04/24 10:00 07/04/24 08:59 Ascorbic Acid 500 Mg Tablet PO 500 mg DAILY JACQUELINE Administration Baclofen 10 mg 07/03/24 15:12 Baclofen 10 Mg Tablet PO BID PRN muscle spasm Cholecalciferol 50 mcg 07/04/24 10:00 07/04/24 08:59 Cholecalciferol (Vit D3) 25 Mcg Tablet (1,000 Units) PO 50 mcg DAILY JACQUELINE Administration Cyanocobalamin 500 mcg 07/04/24 10:00 07/04/24 08:59 Cyanocobalamin 500 Mcg Tablet PO 500 mcg DAILY JACQUELINE Administration Vancomycin IV-PHARMACY TO DOSE 500 mls @ 250 mls/hr 07/03/24 22:00 1 each/ Sodium Chloride IV PRN PRN pharmacy to dose Protocol Vancomycin HCl 1,000 mg in 200 mls @ 200 mls/hr 07/04/24 00:00 07/04/24 12:10 Vancomycin IV Infused Q12H JACQUELINE Infusion Loratadine 10 mg 07/04/24 10:00 07/04/24 08:58 Loratadine 10 Mg Tablet PO 10 mg DAILY JACQUELINE Administration Mupirocin 1 applic 07/03/24 22:00 07/04/24 08:58 Mupirocin Ointment 22gm Tube TOPICAL 07/08/24 22:01 1 applic BID JACQUELINE Administration Protocol Nystatin 1 applic 07/04/24 10:00 07/04/24 11:01 Nystatin Powder 15gm Bottle TOPICAL 1 applic BID JACQUELINE Administration Protocol Pantoprazole Sodium 40 mg 07/05/24 06:00 Pantoprazole Sodium 40 Mg Tablet PO 0600 JACQUELINE Senna/Docusate Sodium 1 tablet 07/03/24 22:00 07/04/24 09:02 Senna/Docusate Sodium 1 Tablet PO Not Given BID JACQUELINE Sodium Chloride 10 - 40 ml 07/03/24 15:05 07/04/24 11:02 0.9% Saline Lock 10 Ml Syringe IV 20 ml UD PRN Administration SALINE FLUSH Tuberculin PPD 0.1 ml 07/11/24 10:00 Tuberculin,Purif.Prot.Deriv. 50 Tu/Ml Vial ID 07/11/24 10:01 X1 ONE Vancomycin Protocol 1 lab 07/05/24 09:30 Vancomycin Trough/Random Due [facility] 07/05/24 13:30 DAILY [facility] Problem List Allergic rhinitis (Acute) Muscle spasm (Acute) B12 deficiency (Acute) GERD (gastroesophageal reflux disease) (Acute) Staph aureus infection (Acute) Infection of cranial bone flap (Acute) ICH (intracerebral hemorrhage) (Acute) SDH (subdural hematoma) (Acute) Debility (Acute) Vital Signs Temp Pulse Resp BP Pulse Ox O2 Del Method 96.2 F L 89 16 106/55 L 95 Room Air 07/04/24 08:53 07/04/24 08:53 07/04/24 08:53 07/04/24 08:53 07/04/24 08:53 07/04/24 08:53 Oxygen Delivery Method Room Air Weight: 78.103 kg Sodium 139 mmol/L (136-145) 07/04/24 05:43 Potassium 4.0 mmol/L (3.5-5.1) 07/04/24 05:43 Chloride 108 mmol/L (98-107) H 07/04/24 05:43 Carbon Dioxide 27.0 mmol/L (21.0-32.0) 07/04/24 05:43 Anion Gap 5 (5-15) 07/04/24 05:43 BUN 12 mg/dL (7-18) 07/04/24 05:43 Creatinine 0.53 mg/dL (0.55-1.02) L 07/04/24 05:43 Est GFR (MDRD) Af Amer 146 mL/min (>60) 07/04/24 05:43 Est GFR (MDRD) Non-Af 120 mL/min (>60) 07/04/24 05:43 BUN/Creatinine Ratio 22.7 RATIO (10-20) H 07/04/24 05:43 Glucose 109 mg/dL (74-106) H 07/04/24 05:43 Random Vancomycin 13.0 ug/mL (0.0-15.0) 07/03/24 21:15 Assessment/Plan: 1. Pain: acetaminophen 1000mg po q8h scheduled. Please continue to monitor for pain levels and consider monitoring LFTs (AST/ALT) as there are no current levels in the chart. 2. Bowel: senna/docusate 1 tab po bid. Please continue to monitor for constipation/diarrhea. Date of last bowel movement is today 07/04/24. 3. S. Aureus infected bone flap s/p surgical removal - Vancomycin IV via PICC line for total 6 weeks therapy. Current dose is 1000mg IV q12h. Please continue to monitor vanc levels/doses as recommended by pharmacy to achieve trough goal of 15-20 mcg/ml. Next trough scheduled for tomorrow 07/05/24 per pharmacy. Please continue to monitor for improvement of infection, signs of worsening infection such as fever (last temp 96.2 F), chills, WBC counts (WBC = 6.9 K/mm3. Also monitor renal function (CrCl 66 ml/min, SCr 0.53 mg/dL today). ID is also fol lowing patient. Please consider adding the 6 week stop date to the vancomycin orders. 4. GERD: pantoprazole 40mg po daily. Continue to monitor for symptoms of reflux, diarrhea. 5. Allergic rhinitis: loratadine 10mg po daily. Please continue to monitor for increased allergy symptoms, headache, drowsiness. 6. Muscle spasm: baclofen 10mg po bid prn. No prn doses have been given yet. If patient starts using, please monitor for confusion/drowsiness,dizziness. 7. Vitamin C/D/B12 deficiencies: ascorbic acid 500mg po daily, cholecalciferol 50mcg po daily, and Vit B12 500mcg po daily. Please consider ordering a vitamin D and vitamin B12 level if clinically appropriate as there are no current levels in the chart. 8. Skin: mupirocin (Bactoban) ointment BID to incision line through 07/08/24. Please continue to monitor for s/s of infection around incision. Nystatin powder BID under breasts. Please continue to monitor for s/s of fungal infection. Assessment/Plan for indications treated with psychotropic medications: NA Medical chart and medication regimen reviewed. The following medication irregularities or issues were identified: 1. cholecalciferol 50mcg po daily and Vit B12 500mcg po daily. Please consider ordering a vitamin D and vitamin B12 level if clinically appropriate as there are no current levels in the chart. 2. vancomycin per pharmacy to dose: please consider adding a stop date to the order if it is to continue for 6 weeks. 3. acetaminophen 1000mg po q8h scheduled. Please consider ordering LFTs (AST/ALT) levels if clinically appropriate as there are no current levels in the chart. Date Date of Note: 07/04/24 Documented by User: Dr. Gopi Fox MD 07/04/24 20:09 TCU RX Drug Regimen Review Provider Comments Provider responsibility Provider Comments to Recommendations by Pharmacy Agree
--- NOTE | 2024-07-04 16:22 | CASEMGMT ---
Social Work SW met with patient to complete initial assessment. Introduced self and role. Verified contacts. Patient confirmed code status as full code. SW requested pt have family provide copies of advanced directives. SW educated to Medicare benefit and copay coverage. Pt is on IV ATB Q12 through 08/08, and is anticipated to remain until that date. Pt lives home alone with dogs, but has many steps to navigate. SW will continue to follow to assist with DC planning. Sandy Kenny ASSOCIATE COUNSEL CONTACT CENTER MANAGER
[2024-07-04 20:52] VITALS: PULSE 88; RESP 16; O2SAT 95
[2024-07-05] MEDS: Vancomycin IV 1,000 MG/200 ML BAG 200 MG IV ×3 (00:01→23:15)
[2024-07-05 05:56] LABS: Hematocrit 34.4 % (37-47); Hemoglobin 10.8 g/dL (12.0-15.0)
[2024-07-05 06:21] LABS: AST(SGOT) 18 U/L (15-37); Alanine Aminotransfer ALT/SGPT 24 U/L (13-56); Alkaline Phosphatase 69 U/L (45-117); Bilirubin, Direct 0.16 mg/dL (0.00-0.30); Globulin 3.1 g/dL (2.2-4.2); Protein, Total 6.1 g/dL (6.4-8.2)
[2024-07-05] MEDS: Pantoprazole Sodium 40 MG Tablet PO (06:31)
[2024-07-05] MEDS: Acetaminophen 500 MG Tablet 1000 MG PO ×3 (06:32→23:12)
[2024-07-05 08:08] VITALS: BP 106/56; PULSE 85; RESP 16; TEMP 36.4; O2SAT 95
[2024-07-05] MEDS: Loratadine 10 MG Tablet PO (08:15)
[2024-07-05] MEDS: Mupirocin Ointment 22gm Tube 1 APPLIC TOPICAL ×2 (08:15→19:56)
[2024-07-05] MEDS: Cyanocobalamin 500 MCG Tablet PO (08:16)
[2024-07-05] MEDS: Cholecalciferol (VIT D3) 25 MCG TABLET (1,000 UNITS) 50 MCG PO (08:16)
[2024-07-05] MEDS: Ascorbic Acid 500 MG Tablet PO (08:16)
[2024-07-05] MEDS: Vancomycin Trough/Random Due 1 LAB MC ×2 (08:17→12:04)
[2024-07-05] MEDS: Nystatin Powder 15gm Bottle 1 APPLIC TOPICAL ×2 (08:20→19:58)
[2024-07-05 10:30] LABS: Vitamin B12 1139 pg/mL (211-911); Vitamin D,25 Hydroxy 53.6 ng/mL
[2024-07-05] MEDS: oxyCODONE 5 MG Tablet PO ×2 (11:28→20:11)
[2024-07-05 12:18] LABS: Vancomycin, Trough Level 15.5 ug/mL (5.0-15.0)
--- NOTE | 2024-07-05 12:27 | PCM.RX.CS ---
Consult Antibiotic Management Pharmacy has been consulted to manage selected antibiotic: Vancomycin Type of Intervention Type of Consult: Follow-up Suspected Infection Suspected Infection: Other (INFECTED SKULL BONE FLAP) Prior Doses of Antibiotics Prior Doses of Antibiotics Received/Current Regimen: Vancomycin 1000 mg IV Q12H last given 07/05/24 @ 0001 Labs Labs: Sodium 139 mmol/L (136-145) 07/04/24 05:43 Potassium 4.0 mmol/L (3.5-5.1) 07/04/24 05:43 Chloride 108 mmol/L (98-107) H 07/04/24 05:43 Carbon Dioxide 27.0 mmol/L (21.0-32.0) 07/04/24 05:43 Anion Gap 5 (5-15) 07/04/24 05:43 BUN 12 mg/dL (7-18) 07/04/24 05:43 Creatinine 0.53 mg/dL (0.55-1.02) L 07/04/24 05:43 Est GFR (MDRD) Af Amer 146 mL/min (>60) 07/04/24 05:43 Est GFR (MDRD) Non-Af 120 mL/min (>60) 07/04/24 05:43 BUN/Creatinine Ratio 22.7 RATIO (10-20) H 07/04/24 05:43 Glucose 109 mg/dL (74-106) H 07/04/24 05:43 Vancomycin Trough 15.5 ug/mL (5.0-15.0) H 07/05/24 11:30 Random Vancomycin 13.0 ug/mL (0.0-15.0) 07/03/24 21:15 Dosing Weight Weight used for dosin kg Estimated Creatinine Clearance Estimated Creatinine Clearance: ~ 66 Goal Trough Goal Trough: 15-20 mcg/mL Pharmacy Plan for Drug Dosing Pharmacy Plan for Drug Dosing: Vancomycin trough = 15.5, continue current dosing. Pharmacy Service will continue to monitor and adjust dosing as required. Follow-Up Labs Follow-Up Labs: Trough: Vancomycin Date/Time Labs Ordered Labs to be done on [date and time ordered]: 07/07/24 @ 1130
[2024-07-05] MEDS: 0.9% Normal Saline (100mL Bag) 100 ML 15 ML IV (12:30)
[2024-07-05] MEDS: 0.9% Saline Lock 10 ML Syringe IV (12:34)
[2024-07-05 12:39] VITALS: PULSE 85; RESP 16; O2SAT 97
[2024-07-05] MEDS: Senna/Docusate Sodium 1 Tablet PO (19:56)
[2024-07-06] MEDS: Pantoprazole Sodium 40 MG Tablet PO (05:32)
[2024-07-06] MEDS: Acetaminophen 500 MG Tablet 1000 MG PO (05:32)
[2024-07-06 08:26] VITALS: BP 108/47; PULSE 66; RESP 18; TEMP 37; O2SAT 96
[2024-07-06] MEDS: Loratadine 10 MG Tablet PO (08:28)
[2024-07-06] MEDS: Mupirocin Ointment 22gm Tube 1 APPLIC TOPICAL (08:28)
[2024-07-06] MEDS: Nystatin Powder 15gm Bottle 1 APPLIC TOPICAL (08:29)
[2024-07-06] MEDS: Cyanocobalamin 500 MCG Tablet PO (08:29)
[2024-07-06] MEDS: Ascorbic Acid 500 MG Tablet PO (08:29)
[2024-07-06] MEDS: Cholecalciferol (VIT D3) 25 MCG TABLET (1,000 UNITS) 50 MCG PO (08:29)
[2024-07-06] MEDS: Baclofen 10 MG Tablet PO (08:31)
[2024-07-06] MEDS: oxyCODONE 5 MG Tablet PO (08:32)
--- NOTE | 2024-07-06 10:26 | NURSING ---
Addendum entered by Shazia Perez 07/06/24 13:17: Packet printed. Report called to ED nurse. Patient exited the unit [id number]. Addendum entered by Shazia Perez 07/06/24 12:56: Patient became nauseous and started vomiting while transporting to CT. Call placed to Dr. Fox with update. Per Dr. Fox, send patient to ED for further evaluation. Original Note: Patient c/o a headache. PRNs not effective for patient's comfort. Patient states headache worsens when she stands and improves slightly when she lays down. Neurological assessment and vitals WNL. Call placed to Dr. Fox with update. New orders received for Ct of the head w/o contrast and NS IV 75/hr continuous. VORB.
[2024-07-06] MEDS: Vancomycin IV 1,000 MG/200 ML BAG 200 MG IV (11:27)
[2024-07-06] MEDS: 0.9% Saline Lock 10 ML Syringe IV (11:28)
--- NOTE | 2024-07-06 17:16 | DS.PCM_ITS ---
Providers Date of Admission: 07/03/24 Primary Care Physician: Dr. Mary Smith, Consultations 07/04/24 07:16 Consult: Infectious Disease Routine Consulting Provider: Riccardo Mckeon Reason for Consult: Infected bone flap, S. Aureus. EMERGENT Consult: No MD Notified: Yes Date Notified: 07/04/24 Time Notified: 07:16 Method of Notification: Text Reason For Visit: INFECTED BONE FLAP Diagnosis Discharge Diagnosis (1) Infection of cranial bone flap: Status: Acute Code(s): T81.43XA - Infection following a procedure, organ and space surgical site, initial encounter Plan 74 year old female with past medical history of multiple brain bleeds, surgical treatment, hospitalized for infected left cranial bone flap, underwent removal of infected left cranial bone flap, complicated by hypertension, admitted to TCU with debility, here for rehabilitation, strengthening, intravenous antibiotics, prior to discharge home alone. * Debility - PT/OT. * Pain - Tylenol 1000mg q8. * Bowel - senna/colace 1 tablet bid. * Adult immunization - Administer pneumonia vaccine, covid vaccine, flu vaccine as appropriate. * DVT prophylaxis - Contraindicated, resident has had multiple unprovoked brain bleeds. * Vitamin C deficiency - Vitamin C 500mg daily. * Muscle spasm - Baclofen 10mg bid prn. * Vitamin D deficiency - D3 50mcg daily. * Vitamin B12 deficiency - B12 500mcg daily. * Allergic rhinitis - Loratadine 10mg daily. * Skin - Bacitracin topical bid thru 07/08/2024. * GERD - Pantoprazole 40mg daily. * S. Aureus infected bone flap s/p surgical removal - Vancomycin IV via PICC line for total 6 weeks therapy. Medications at Discharge Home Medications pantoprazole 40 mg tablet,delayed release (Protonix) 40 mg PO DAILY GERD 05/09/21 cyanocobalamin (vitamin B-12) 1 tab PO DAILY supplement 08/05/23 potassium gluconate 600 mg (99 mg) tablet 600 mg PO DAILY SUPPLEMENT 08/05/23 baclofen 10 mg tablet 10 mg PO BID PRN muscle spasm 09/26/23 cholecalciferol (vitamin D3) 50 mcg (2,000 unit) capsule (Vitamin D3) 50 mcg PO DAILY supplement 09/26/23 loratadine 10 mg tablet (Claritin) 10 mg PO DAILY allergies 01/29/24 acetaminophen 500 mg capsule 1,000 mg PO Q8H pain 07/03/24 ascorbic acid (vitamin C) 500 mg tablet 500 mg PO DAILY supplement 07/03/24 mupirocin 2 % topical ointment 1 applic topical BID ointment for incision 07/03/24 sennosides 8.6 mg capsule (senna) 8.6 mg PO DAILY stool softner 07/03/24 Hospital Course Operations - (See below.) Procedures None Summary of Care Provided Minutes Spent on Discharge: 15 Hospital Course: 74 year old female with past medical history of multiple brain bleeds, surgical treatment, hospitalized for infected left cranial bone flap, underwent removal of infected left cranial bone flap, complicated by hypertension, admitted to TCU with debility, here for rehabilitation, strengthening, intravenous antibiotics, prior to discharge home alone. Resident had headache upon admission. 07/04/2024 Headache not controlled with Tylenol, Oxycodone ordered. 07/05/2024 Headache persisted, CT head shows new brain bleed, resident vomited on the way to CT scan. Discharge to [facility] ED for evaluation, admission to [facility]. Physical Exam Const alert, oriented x3 and no apparent distress General Appearance: cooperative HEENT normocephalic HEENT Narrative: yao in place over L craniotomy Eyes PERRL and EOMs intact bilaterally Neck supple and No nodes Resp normal air movement and clear to auscultation bilaterally Cardio regular rate and regular rhythm GI soft to palpation, non-tender and non-distended Extremity General Extremity: Negative for edema Skin no rashes or lesions noted Neuro CN's II-XII intact bilaterally Weight / BMI Weight Weight: 78.103 kg ABG / Lab / Microbiology Data 07/05/24 05:19 07/04/24 05:43 D/C Instructions Discharge Diet: No restrictions Discharge Activity: Return to Normal Activity Weight Bearing Status: Weight bearing as tolerated Call your doctor if you observe: Fever of 101 or Higher, Inability to urinate, Inability to have a bowel movement, Shortness of breath, Dizziness, Fainting spells, Swelling in the ankles, Chest pain and Uncontrolled pain DC O2, CPAP, BIPAP Needs Home O2 Discharge instructions: No Additional Instructions: Discharge to [facility] ED for evaluation, admission to [facility]. Please Follow Up With: Dr Rodriguez Meaningful Use Info Meaningful Use Meaningful Use Diagnoses (Choose all that apply): None applicable Ischemic Stroke Statin Dosing Therapy Reference: STATIN DOSE THERAPY REFERENCE: * Patients > 75 years receive moderate or high dose statin therapy. * Patients 75 years or YOUNGER should receive HIGH intensity statin dose unless contraindicated. You will be required to document reason for non-treatment if statin daily dose does not meet guidelines. HIGH DOSE STATIN THERAPY DAILY Atorvastatin > than or = to 40 mg Rosuvastatin > than or = to 20 mg Amlodipine + Atorvastatin > than or = to 2.5/40 mg Ezetimibe + Simvastatin 10/80 mg Simvastatin 80mg Discharge Plan Admission Admit Date/Time: 07/03/24 13:58 Primary Reason for Your Visit: Debility. Attending Provider: Gopi Fox Chi Primary Care Provider: Mary Smith Consulting Providers: Riccardo Mckeon Instructions Additional Instructions / Restrictions: Discharge to [facility] ED for evaluation, admission to [facility]. Discharge Orders/Prescriptions Prescriptions: No Action loratadine [Claritin] 10 mg tablet 10 mg PO DAILY pantoprazole [Protonix] 40 MG tablet,delayed release (DR/EC) 40 mg PO DAILY cyanocobalamin (vitamin B-12) 1 tab PO DAILY potassium gluconate 600 mg (99 mg) tablet 600 mg PO DAILY cholecalciferol (vitamin D3) [Vitamin D3] 50 mcg (2,000 unit) capsule 50 mcg PO DAILY baclofen 10 mg Tablet 10 mg PO BID PRN (Reason: muscle spasm) acetaminophen 500 mg capsule 1,000 mg PO Q8H senna 8.6 mg capsule 8.6 mg PO DAILY mupirocin 2 % ointment 1 applic topical BID ascorbic acid (vitamin C) 500 mg Tablet 500 mg PO DAILY Referrals / Follow Up: Mary Smith DO [Primary Care Provider] - Disposition Disposition (needs filled in before D/C Order can be placed): Acute Care Hospital
--- NOTE | 2024-07-15 08:52 | MDS.RN ---
Information for the MDS was obtained from review of the clinical record, interview of resident, staff, and direct observation of resident?s care.
== END 2024-07-06 15:15 | disposition short-term general hospital (02) | DRG 949 ==
LOC: TCU 14:10
PROVIDERS: Admitting Provider Family Medicine Geriatric Medicine; PCP Family Medicine; Visit Provider Family Medicine Geriatric Medicine
DX: T84.69XD Infection and inflammatory reaction due to internal fixation device of other site, subsequent encounter (principal); I62.00 Nontraumatic subdural hemorrhage, unspecified; I61.9 Nontraumatic intracerebral hemorrhage, unspecified; I62.9 Nontraumatic intracranial hemorrhage, unspecified; I10 Essential (primary) hypertension; E53.8 Deficiency of other specified B group vitamins; J30.9 Allergic rhinitis, unspecified; K21.9 Gastro-esophageal reflux disease without esophagitis; M62.838 Other muscle spasm; E55.9 Vitamin D deficiency, unspecified; B95.61 Methicillin susceptible Staphylococcus aureus infection as the cause of diseases classified elsewhere; Z87.891 Personal history of nicotine dependence; Y83.8 Other surgical procedures as the cause of abnormal reaction of the patient, or of later complication, without mention of misadventure at the time of the procedure; Z79.899 Other long term (current) drug therapy
CPT/HCPCS: 36415; 80048; 80076; 80202; 82306; 82565; 82607; 85014; 85018; 85025; 97110; 97116; 97162; 97165; 97530; 97802; A4216

== ENCOUNTER 2024-07-06 13:11 | Emergency (ER) | payer MEDICARE, OTHER, SELFPAY ==
[2024-07-06 13:12] VITALS: BP 122/76; PULSE 85; RESP 16; TEMP 36.5; O2SAT 95
--- NOTE | 2024-07-06 13:36 | EDS_ITS ---
HPI <ALEJANDRO Lim - Last Filed: 07/06/24 14:43> History of Present Illness Chief Complaint: Headache Narrative Narrative: 74-year-old female was sent down from the TCU for headache x 2 days with recent neurosurgery. On 06/27/2024 she was at [facility] and Dr. Rodriguez did a left craniotomy to remove an infected bone flap and exposed hardware. She was admitted to the TCU for rehab and IV antibiotics prior to discharge home. She has a PICC line and is getting vancomycin for 6 weeks. She has had a left sided headache over the surgical site for the last 2 days which is being treated with oxycodone and Tylenol. She feels better if she lies down. She denies fever or chills. She vomited once this morning. She states this could have been from headache or from her oxycodone or from eating egg salad with onions as this upsets her stomach. She has history of right subdural hematoma with surgical treatment on 09/05/2021 Right epidural hematoma requiring surgical treatment on 10/19/2021 [facility] <ALEJANDRO Lim - Last Filed: 07/06/24 14:43> [facility] Medical History Personal history of colonic polyps Wears glasses Open wound Migraines Brain bleed Wears dentures Alcohol use Arthritis Anemia Easy bruising Restless legs Back pain Seizures History of GI bleed History of diverticulitis Gastric reflux Former smoker History of stress test History of muscle spasm Leg cramps Duodenal ulcer GI bleed Home Medications ?Medication ?Instructions ?Recorded ?Last Taken ?Type pantoprazole 40 mg tablet,delayed 40 mg PO DAILY GERD 05/09/21 02/05/24 History release (Protonix) cyanocobalamin (vitamin B-12) 1 tab PO DAILY supplemen t 08/05/23 08/28/23 History potassium gluconate 600 mg (99 mg) 600 mg PO DAILY SUP PLEMENT 08/05/23 08/28/23 History tablet baclofen 10 mg tablet 10 mg PO BID PRN muscle spas m 09/26/23 Unknown History cholecalciferol (vitamin D3) 50 50 mcg PO DAILY supple ment 09/26/23 Unknown History mcg (2,000 unit) capsule (Vitamin D3) loratadine 10 mg tablet (Claritin) 10 mg PO DAILY parker rgies 01/29/24 Unknown History acetaminophen 500 mg capsule 1,000 mg PO Q8H pain 06/06 Unknown History ascorbic acid (vitamin C) 500 mg 500 mg PO DAILY suppl ement 07/03/24 Unknown History tablet mupirocin 2 % topical ointment 1 applic topical BID oi ntment for 07/03/24 Unknown History incision sennosides 8.6 mg capsule (senna) 8.6 mg PO DAILY stoo l softner 07/03/24 Unknown History Allergy/AdvReac Type Severity Reaction Status Date / Time Penicillins Allergy Rash Verified 07/06/24 13:17 prednisone Allergy Rash Verified 07/06/24 13:17 ibuprofen AdvReac Bleeding Verified 07/06/24 13:17 Family History Mother Colon cancer Hx of colectomy Father Colon cancer Aunt Colon cancer Uncle Colon cancer Grandfather Colon cancer Other Heart disease Surgical History History of partial colectomy Hx of cystoscopy History of ERCP History of incisional hernia repair History of common bile duct surgery History of cholecystectomy Hx of colonoscopy Hx of esophagogastroduodenoscopy S/P tubal ligation Status post craniotomy S/P wrist surgery Social History household members: none and other housing: house current occupational status: retired Smoking Status: Former smoker alcohol intake: never substance use type: does not use ROS <ALEJANDRO Lim - Last Filed: 07/06/24 14:43> ROS ED ROS Narrative Constitutional: Negative for fever, chills, malaise. Eyes: Negative for visual change. GI: Negative for nausea, vomiting. No abdominal pain. Neuro: Positive for headache, negative motor/sensory dysfunction. EXAM <ALEJANDRO Lim - Last Filed: 07/06/24 14:43> Physical Exam Narrative Exam Narrative: CONST: Patient sitting in no acute distress. EYES: Normal inspection. ENT: Left side of scalp is sunken from craniotomy with surgical melinda intact. No dehiscence or cellulitis. NECK: Normal inspection. RESP: No respiratory distress, CTAB. CVS: Regular rate and rhythm, no murmur, no gallop. SKIN: Color normal, no rash, warm, dry, intact. EXTREMITIES: Normal appearance, no pedal edema. NEURO: Alert and answering questions appropriately. Moving all extremities, no upper or lower extremity drift, normal [id number] and [id number], 5/5 strength. PSYCH: Normal affect. Const Vital Signs: 07/06/24 13:12 07/06/24 14:16 07/06/24 14:16 Temperature 97.7 F L 98.9 F 98.9 F Temperature Source Oral Oral Oral Pulse Rate 85 64 76 Respiratory Rate 16 16 16 Blood Pressure 122/76 H 132/78 H 132/78 H Blood Pressure Mean 91 96 96 Pulse Ox 95 98 98 Oxygen Delivery Method Room Air Room Air Room Air 07/06/24 15:17 07/06/24 16:00 07/06/24 16:59 Temperature 98.3 F Temperature Source Pulse Rate 89 86 86 Respiratory Rate 16 16 16 Blood Pressure 105/64 110/70 110/70 Blood Pressure Mean 77 83 83 Pulse Ox 95 95 95 Oxygen Delivery Method Room Air Room Air <Dr. Bob Chi DO - Last Filed: 07/06/24 22:33> Physical Exam Const Vital Signs: 07/06/24 13:12 07/06/24 14:16 07/06/24 14:16 Temperature 97.7 F L 98.9 F 98.9 F Temperature Source Oral Oral Oral Pulse Rate 85 64 76 Respiratory Rate 16 16 16 Blood Pressure 122/76 H 132/78 H 132/78 H Blood Pressure Mean 91 96 96 Pulse Ox 95 98 98 Oxygen Delivery Method Room Air Room Air Room Air 07/06/24 15:17 07/06/24 16:00 07/06/24 16:59 Temperature 98.3 F Temperature Source Pulse Rate 89 86 86 Respiratory Rate 16 16 16 Blood Pressure 105/64 110/70 110/70 Blood Pressure Mean 77 83 83 Pulse Ox 95 95 95 Oxygen Delivery Method Room Air Room Air MDM <ALEJANDRO Lim - Last Filed: 07/06/24 14:43> MDM MDM Narrative Medical decision making narrative: History gathered from: Patient, TCU notes Differential includes but not limited to postoperative headache, intracranial hemorrhage Consults: [facility] neurosurgery, ICU 74-year-old female is status post left craniotomy on 06/27/2024 for removal of an infected bone flap and hardware by Dr. Rodriguez at [facility]. She presents with a headache x 2 days. She is awake alert no distress. Vital signs stable. She has no focal neurological deficits. Left craniotomy site appears intact without dehiscence or external signs of infection. The CT brain ordered by the TCU shows new foci of high attenuation in the surgical bed at the former expected location of the dura which is likely intracranial hemorrhage. There is 5 mm of contralateral midline shift. Patient remains neurologically stable and blood pressure is controlled at 122/76. I spoke with [facility] transfer line and relayed the findings to Dr. Rodriguez at 2:25 PM who recommended transfer for evaluation. I spoke with the ICU attending Dr. Smyth who accepted the patient to the T2 floor at 2:39 PM and we are arranging transport. 31 minutes of critical care time was consumed by review of records, evaluation of the patient, review of imaging, discussion with multiple consultants and transfer. Lab Data Labs: Laboratory Results - last 24 hr 07/06/24 14:25 WBC 10.2 RBC 4.10 L Hgb 12.3 Hct 38.3 MCV 93.4 MCH 30.0 MCHC 32.1 RDW Std Deviation 48.0 H RDW Coeff of Bria 14.1 Plt Count 192 MPV 10.0 Immature Gran % (Auto) 1.200 H Neut % (Auto) 68.4 Lymph % (Auto) 18.3 L [place] % (Auto) 8.2 Eos % (Auto) 3.3 Baso % (Auto) 0.6 Absolute Neuts (auto) 7.0 Absolute Lymphs (auto) 1.86 Nucleated RBC % 0 Sodium 138 Potassium 4.3 Chloride 105 Carbon Dioxide 27.0 Anion Gap 6 BUN 14 Creatinine 0.66 Est GFR (MDRD) Af Amer 112 Est GFR (MDRD) Non-Af 93 BUN/Creatinine Ratio 21.1 H Glucose 128 H Calcium 8.9 <Dr. Bob Chi, DO - Last Filed: 07/06/24 22:33> [facility] Lab Data Labs: Laboratory Results - last 24 hr 07/06/24 14:25 WBC 10.2 RBC 4.10 L Hgb 12.3 Hct 38.3 MCV 93.4 MCH 30.0 MCHC 32.1 RDW Std Deviation 48.0 H RDW Coeff of Bria 14.1 Plt Count 192 MPV 10.0 Immature Gran % (Auto) 1.200 H Neut % (Auto) 68.4 Lymph % (Auto) 18.3 L [place] % (Auto) 8.2 Eos % (Auto) 3.3 Baso % (Auto) 0.6 Absolute Neuts (auto) 7.0 Absolute Lymphs (auto) 1.86 Nucleated RBC % 0 Sodium 138 Potassium 4.3 Chloride 105 Carbon Dioxide 27.0 Anion Gap 6 BUN 14 Creatinine 0.66 Est GFR (MDRD) Af Amer 112 Est GFR (MDRD) Non-Af 93 BUN/Creatinine Ratio 21.1 H Glucose 128 H Calcium 8.9 Treatment and Re-Evaluation :: I have personally performed a face to face assessment of the patient and have reviewed the MARY Note. I performed a substantive portion of the visit including all aspects of the following. My ames findings include: History: Patient presents with headache that has been getting worse over the past 2 days. Patient had a recent craniotomy and had the bone flap removed because of infection. Patient started to having a headache 2 days ago. Patient had a CT scan today which showed some bleeding in the area of the prior surgery. Patient was then referred to the emergency department. Exam: Vital signs are stable. Patient is afebrile. Patient is in no acute distress. Cranial nerves II through XII are intact. Strength is 5/5 bilateral in the upper and lower extremities. There are no sensory deficits noted. Incision is healing well. Melinda are in place. There is no bleeding. There is no erythema or warmth. Medical Decision Making: Differential diagnosis includes intracranial bleeding, anemia, infection, and electrolyte abnormality. CBC will be obtained to assess for leukocytosis and anemia. Basic metabolic profile will be obtained to assess for electrolyte abnormality and renal function. CBC was reviewed and was essentially within normal limits. Basic metabolic profile was reviewed and was essentially within normal limits. Case was discussed with Dr. Oconnor who did her surgery at [facility]. Patient will be transferred there. Patient understood and was agreeable with the plan. All questions were answered. Discharge Plan Triage Chief Complaint: Headache Other Complaint: Dizziness ED Midlevel Provider: Mary Ga ED Provider: Schwiger,Bob Dx/Rx/DC Orders Clinical Impression: Intracranial bleed, Headache, Status post craniotomy Prescriptions: No Action loratadine [Claritin] 10 mg tablet 10 mg PO DAILY pantoprazole [Protonix] 40 MG tablet,delayed release (DR/EC) 40 mg PO DAILY cyanocobalamin (vitamin B-12) 1 tab PO DAILY potassium gluconate 600 mg (99 mg) tablet 600 mg PO DAILY cholecalciferol (vitamin D3) [Vitamin D3] 50 mcg (2,000 unit) capsule 50 mcg PO DAILY baclofen 10 mg Tablet 10 mg PO BID PRN (Reason: muscle spasm) acetaminophen 500 mg capsule 1,000 mg PO Q8H senna 8.6 mg capsule 8.6 mg PO DAILY mupirocin 2 % ointment 1 applic topical BID ascorbic acid (vitamin C) 500 mg Tablet 500 mg PO DAILY Primary Care Provider: Mary Smith Referrals: Mary Smith DO [Primary Care Provider] - Print Language: Macedonian Disposition Disposition: Acute Care Hospital Discharge Location: [facility] Discharge Date/Time: 07/06/24 17:00
[2024-07-06 14:16] VITALS: BP 132/78; PULSE 64; PULSE 76; RESP 16; TEMP 37.2; O2SAT 98
--- NOTE | 2024-07-06 14:43 | ED.RN ---
ACCEPTED AT [facility] @ [id number] TRANSPORT IS SET UP
[2024-07-06 14:45] LABS: Absolute Lymphocyte Count 1.86 X10^3/uL (0.83-4.51); Basophil# 0.06 X10^3/uL; Basophil% 0.6 % (0-1); Eosinophil# 0.34 X10^3/uL; Eosinophils% 3.3 % (0-5); Hematocrit 38.3 % (37-47); Hemoglobin 12.3 g/dL (12.0-15.0); Lymphocyte # 1.86 X10^3/ul (0.83-4.51); Lymphocyte % 18.3 % (19-41); Mean Corp Hgb Conc 32.1 g/dL (32-36); Mean Corpuscular Volume 93.4 fL (81-99); Monocyte# 0.83 X10^3/uL; Monocyte% 8.2 % (0-10); NRBC Flagged by Analyzer 0 % (0-5); Neutrophil # 6.97 X10^3/uL (2.7-7.7); Neutrophil % 68.4 % (47-70); Platelet Count 192 K/mm3 (150-450); RBC Distribution Width CV 14.1 % (11.6-14.6); White Blood Count 10.2 K/mm3 (4.4-11.0)
[2024-07-06 14:53] LABS: Anion Gap 6 (5-15); BUN 14 mg/dL (7-18); BUN/Creat Ratio 21.1 RATIO (10-20); Calcium,Total 8.9 mg/dL (8.5-10.1); Chloride 105 mmol/L (98-107); Creatinine, Serum 0.66 mg/dL (0.55-1.02); EST Glomerular Filtration Rate 93 mL/min (>60); Est Glom Filt Rate - Afr Amer 112 mL/min (>60); Glucose 128 mg/dL (74-106); Potassium 4.3 mmol/L (3.5-5.1); Sodium Level 138 mmol/L (136-145)
[2024-07-06 15:17] VITALS: BP 105/64; PULSE 89; RESP 16; O2SAT 95
[2024-07-06 15:24] VITALS: BMI 28.8
[2024-07-06 16:00] VITALS: BP 110/70; PULSE 86; RESP 16; O2SAT 95
[2024-07-06 16:59] VITALS: BP 110/70; PULSE 86; RESP 16; TEMP 36.8; O2SAT 95
== END 2024-07-06 17:00 | disposition short-term general hospital (02) ==
PROVIDERS: Physician Assistant; Emergency Provider Emergency Medicine; PCP Family Medicine; Visit Provider Emergency Medicine
DX: I62.9 Nontraumatic intracranial hemorrhage, unspecified (principal); R51.9 Headache, unspecified; R42 Dizziness and giddiness; K21.9 Gastro-esophageal reflux disease without esophagitis; Z87.891 Personal history of nicotine dependence; Z98.890 Other specified postprocedural states
CPT/HCPCS: 36592; 80048; 85025; 99284

== ENCOUNTER → 2024-07-06 | Outpatient (CLI) | payer MEDICARE, OTHER, SELFPAY ==
--- NOTE | 2024-07-06 12:03 | CT_ITS ---
EXAM: BRAIN/HEAD WITHOUT CONTRAST CLINICAL HISTORY: Surgery COMPARISON: Reviewed TECHNIQUE: Noncontrast images of the head with multiplanar reconstructions. Dose reduction techniques were used including intermediate exposure control (AEC),iterative reconstruction technique, and/or mA and/or KV dose adjustments based on patient's size. FINDINGS: Postsurgical changes of the left hemicranium are again see with interval removal of the dura in this region, with new foci of high attenuation noted in the surgical bed at the former expected location of the dura likely intracranial hemorrhage. 5 mm contralateral midline shift of the right. No downward transtentorial herniation. Clinical and imaging surveillance is recommended. No hydrocephalus. Age- appropriate cerebral volume and white matter. Visualized paranasal sinuses and mastoid air cells are clear. CT/Brain/Head without Contrast IMPRESSION: as above. Reading Location: [facility]
== END | disposition home or self-care (01) ==
LOC: CT 11:24
PROVIDERS: PCP Family Medicine; Referring Provider Family Medicine Geriatric Medicine; Visit Provider Family Medicine Geriatric Medicine
DX: R51.9 Headache, unspecified (principal)
CPT/HCPCS: 70450

== ENCOUNTER 2024-07-09 18:57 | Inpatient (IN) | payer MEDICARE, OTHER, SELFPAY ==
--- NOTE | 2024-07-09 19:33 | HP.PCM_ITS ---
HPI - General General Date of Admission: 07/09/24 Date of Service: 07/10/24 Chief Complaint: Here for rehabilitation, intravenous antibiotics. HPI Narrative CARLA HARRISON, is a 74 Female who presents with followin06/27/2024 Left craniotomy for removal of infected bone flap. 07/02/2024 Left upper extremity IR PICC line placement. 07/06/2024 [facility] ED TCU resident with headache, nausea, vomiting, no head trauma. CT head showed new ICH. 07/06/2024 Transfer to [facility]. Consult Neurosurgery, continue Vancomycin IV, Consult Infectious Disease. Seizure prophylaxis and blood pressure control with prn Labetalol and Hydralazine. Mupirocin nasal ointment twice daily for MRSA decolonization. No surgery planned. 07/07/[address] head shows increasing SDH with shift. Patient asymptomatic. 07/08/2024 CT head SDH left to right shift decreased from 11mm to 5mm. 07/09/2024 Headache persists. 07/09/2024 Vancomycin IV for MRSA infected bone flap thru 08/08/2024. 07/09/2024 Admit to TCU with debility, here for rehabilitation, strengthening, in travenous antibiotics, prior to discharge home alone. [facility] Medical History Personal history of colonic polyps Wears glasses Open wound Migraines Brain bleed Wears dentures Alcohol use Arthritis Anemia Easy bruising Restless legs Back pain Seizures History of GI bleed History of diverticulitis Gastric reflux Former smoker History of stress test History of muscle spasm Leg cramps Duodenal ulcer GI bleed Home Medications ?Medication ?Instructions ?Recorded ?Last Taken ?Type pantoprazole 40 mg tablet,delayed 40 mg PO DAILY GERD 05/09/21 02/05/24 History release (Protonix) cyanocobalamin (vitamin B-12) 1 tab PO DAILY supplemen t 08/05/23 08/28/23 History potassium gluconate 600 mg (99 mg) 600 mg PO DAILY SUP PLEMENT 08/05/23 08/28/23 History tablet baclofen 10 mg tablet 10 mg PO BID PRN muscle spas m 09/26/23 Unknown History cholecalciferol (vitamin D3) 50 50 mcg PO DAILY supple ment 09/26/23 Unknown History mcg (2,000 unit) capsule (Vitamin D3) loratadine 10 mg tablet (Claritin) 10 mg PO DAILY parker rgies 01/29/24 Unknown History acetaminophen 500 mg capsule 1,000 mg PO Q6H PRN heada mars 07/03/24 07/08/24 20:45 History ascorbic acid (vitamin C) 500 mg 500 mg PO DAILY suppl ement 07/03/24 Unknown History tablet mupirocin 2 % topical ointment 1 applic topical BID oi ntment for 07/03/24 Unknown History incision sennosides 8.6 mg capsule (senna) 17.2 mg PO QHS PRN s tool softner 07/03/24 Unknown History ondansetron 4 mg disintegrating 4 mg PO Q8H PRN nausea and vomiting 07/09/24 Unknown History tablet oxycodone 5 mg tablet 2.5 mg PO Q6H PRN pain (scal e 07/09/24 Unknown History score 7-10) Allergy/AdvReac Type Severity Reaction Status Date / Time Penicillins Allergy Rash Verified 07/06/24 13:17 prednisone Allergy Rash Verified 07/06/24 13:17 ibuprofen AdvReac Bleeding Verified 07/06/24 13:17 Family History Mother Colon cancer Hx of colectomy Father Colon cancer Aunt Colon cancer Uncle Colon cancer Grandfather Colon cancer Other Heart disease Surgical History History of partial colectomy Hx of cystoscopy History of ERCP History of incisional hernia repair History of common bile duct surgery History of cholecystectomy Hx of colonoscopy Hx of esophagogastroduodenoscopy S/P tubal ligation Status post craniotomy S/P wrist surgery Social History household members: none and other housing: house current occupational status: retired Smoking Status: Former smoker alcohol intake: never substance use type: does not use Assessment & Plan Assessment/Plan (1) Debility: (2) ICH (intracerebral hemorrhage): (3) Status post craniotomy: (4) Headache: (5) Infection of cranial bone flap: (6) MRSA (methicillin resistant Staphylococcus aureus) infection: (7) Essential (primary) hypertension: (8) Muscle spasm: (9) B12 deficiency: (10) Vitamin D deficiency: (11) Allergic rhinitis: (12) GERD (gastroesophageal reflux disease): PLAN: Plan 74 year old female with recent left craniotomy for infected mrsa bone flap hospitalized for new ICH/SDH, treated without surgery, admitted to TCU with debility, here for rehabilitation, strengthening, intravenous antibiotics, prior to discharge home alone. * Debility - PT/OT. * Pain - Tylenol 1000mg q6 prn headache, Oxycodone 2.5mg q4 prn pain (7-10). * Bowel - senna/colace 1 tablet bid. * Adult immunization - Administer pneumonia vaccine, covid vaccine, flu vaccine as appropriate. * DVT prophylaxis - Contraindicated, she has had 8 spontaneous brain bleeds. * Vitamin C deficiency - Vitamin C 500mg daily. * Muscle spasm - Baclofen 10mg bid prn. * Vitamin D deficiency - D3 50mcg daily. * Vitamin B12 deficiency - B12 1000mcg daily. * Allergic rhinitis - Loratadine 10mg daily. * Nausea - Zofran odt 4mg q8 prn. * GERD - Pantoprazole 40mg daily. * MRSA decolonization - Mupirocin ointment nasal bid. * MRSA infected bone flap s/p craniotomy - Vancomycin IV thru 08/08/2024.
--- NOTE | 2024-07-09 19:33 | PCM.HP.STD ---
HPI - General General Date of Admission: 07/09/24 Date of Service: 07/10/24 Chief Complaint: Here for rehabilitation, intravenous antibiotics. HPI Narrative CARLA HARRISON, is a 74 Female who presents with followin06/27/2024 Left craniotomy for removal of infected bone flap. 07/02/2024 Left upper extremity IR PICC line placement. 07/06/2024 [facility] ED TCU resident with headache, nausea, vomiting, no head trauma. CT head showed new ICH. 07/06/2024 Transfer to [facility]. Consult Neurosurgery, continue Vancomycin IV, Consult Infectious Disease. Seizure prophylaxis and blood pressure control with prn Labetalol and Hydralazine. Mupirocin nasal ointment twice daily for MRSA decolonization. No surgery planned. 07/07/[address] head shows increasing SDH with shift. Patient asymptomatic. 07/08/2024 CT head SDH left to right shift decreased from 11mm to 5mm. 07/09/2024 Headache persists. 07/09/2024 Vancomycin IV for MRSA infected bone flap thru 08/08/2024. 07/09/2024 Admit to TCU with debility, here for rehabilitation, strengthening, intravenous antibiotics, prior to discharge home alone. [facility] Medical History Personal history of colonic polyps Wears glasses Open wound Migraines Brain bleed Wears dentures Alcohol use Arthritis Anemia Easy bruising Restless legs Back pain Seizures History of GI bleed History of diverticulitis Gastric reflux Former smoker History of stress test History of muscle spasm Leg cramps Duodenal ulcer GI bleed Home Medications ?Medication ?Instructions ?Recorded ?Last Taken ?Type pantoprazole 40 mg tablet,delayed 40 mg PO DAILY GERD 05/09/21 02/05/24 History release (Protonix) cyanocobalamin (vitamin B-12) 1 tab PO DAILY supplement 08/05/23 08/28/23 History potassium gluconate 600 mg (99 mg) 600 mg PO DAILY SUPPLEMENT 08/05/23 08/28/23 History tablet baclofen 10 mg tablet 10 mg PO BID PRN muscle spasm 09/26/23 Unknown History cholecalciferol (vitamin D3) 50 50 mcg PO DAILY supplement 09/26/23 Unknown History mcg (2,000 unit) capsule (Vitamin D3) loratadine 10 mg tablet (Claritin) 10 mg PO DAILY allergies 01/29/24 Unknown History acetaminophen 500 mg capsule 1,000 mg PO Q6H PRN headache 07/03/24 07/08/24 20:45 History ascorbic acid (vitamin C) 500 mg 500 mg PO DAILY supplement 07/03/24 Unknown History tablet mupirocin 2 % topical ointment 1 applic topical BID ointment for 07/03/24 Unknown History incision sennosides 8.6 mg capsule (senna) 17.2 mg PO QHS PRN stool softner 07/03/24 Unknown History ondansetron 4 mg disintegrating 4 mg PO Q8H PRN nausea and vomiting 07/09/24 Unknown History tablet oxycodone 5 mg tablet 2.5 mg PO Q6H PRN pain (scale 07/09/24 Unknown History score 7-10) Allergy/AdvReac Type Severity Reaction Status Date / Time Penicillins Allergy Rash Verified 07/06/24 13:17 prednisone Allergy Rash Verified 07/06/24 13:17 ibuprofen AdvReac Bleeding Verified 07/06/24 13:17 Family History Mother Colon cancer Hx of colectomy Father Colon cancer Aunt Colon cancer Uncle Colon cancer Grandfather Colon cancer Other Heart disease Surgical History History of partial colectomy Hx of cystoscopy History of ERCP History of incisional hernia repair History of common bile duct surgery History of cholecystectomy Hx of colonoscopy Hx of esophagogastroduodenoscopy S/P tubal ligation Status post craniotomy S/P wrist surgery Social History household members: none and other housing: house current occupational status: retired Smoking Status: Former smoker alcohol intake: never substance use type: does not use ROS Constitutional Constitutional: Denies chills, fever(s) or weight gain ENT HEENT: Denies headache(s), nasal congestion or nasal discharge Cardiovascular Cardiovascular: Denies chest pain or palpitations Respiratory/Chest Respiratory/Chest: Denies cough, excessive phlegm production or shortness of breath with exertion Gastrointestinal Gastrointestinal: Denies abdominal pain, nausea or vomiting Genitourinary Genitourinary: Denies dysuria Musculoskeletal Musculoskeletal: Denies joint pain or joint swelling Integumentary Integumentary: Denies rash or wounds Neurologic Neurologic: Denies focal weakness, numbness or tingling Psychiatric Psychiatric: Denies anxiety, auditory hallucinations, depression, homicidal ideation or suicidal ideation Physical Exam Const alert General Appearance: cooperative HEENT normocephalic HEENT Narrative: Left craniotomy, helmet. Eyes PERRL and EOMs intact bilaterally Neck supple, no JVD and no carotid bruits Resp normal respiratory effort, normal air movement and clear to auscultation bilaterally Cardio regular rate and regular rhythm GI normal to inspection, nondistended, normoactive bowel sounds, non-tender and non-distended Extremity normal capillary refill Extremity Narrative: Left upper extremity PICC line. General Extremity: Negative for edema Skin no rashes or lesions noted General Skin Exam: no breakdown Psych affect normal Appearance: appropriate Results Lab / Micro Data 07/10/24 07:25 07/10/24 07:25 Assessment & Plan Assessment/Plan (1) Debility: (2) ICH (intracerebral hemorrhage): (3) Status post craniotomy: (4) Headache: (5) Infection of cranial bone flap: (6) MRSA (methicillin resistant Staphylococcus aureus) infection: (7) Essential (primary) hypertension: (8) Muscle spasm: (9) B12 deficiency: (10) Vitamin D deficiency: (11) Allergic rhinitis: (12) GERD (gastroesophageal reflux disease): PLAN: Plan 74 year old female with recent left craniotomy for infected mrsa bone flap hospitalized for new ICH/SDH, treated without surgery, admitted to TCU with debility, here for rehabilitation, strengthening, intravenous antibiotics, prior to discharge home alone. Debility - PT/OT. Pain - Tylenol 1000mg q6 prn headache, Oxycodone 2.5mg q4 prn pain (7-10). Bowel - senna/colace 1 tablet bid. Adult immunization - Administer pneumonia vaccine, covid vaccine, flu vaccine as appropriate. DVT prophylaxis - Contraindicated, she has had 8 spontaneous brain bleeds. Vitamin C deficiency - Vitamin C 500mg daily. Muscle spasm - Baclofen 10mg bid prn. Vitamin D deficiency - D3 50mcg daily. Vitamin B12 deficiency - B12 1000mcg daily. Allergic rhinitis - Loratadine 10mg daily. Nausea - Zofran odt 4mg q8 prn. GERD - Pantoprazole 40mg daily. MRSA decolonization - Mupirocin ointment nasal bid. MRSA infected bone flap s/p craniotomy - Vancomycin IV thru 08/08/2024.
[2024-07-09 19:56] VITALS: BP 96/45; PULSE 82; RESP 15; TEMP 36.4; O2SAT 95; BMI 26.9
[2024-07-09 20:30] VITALS: PULSE 82; RESP 15; O2SAT 95
[2024-07-09] MEDS: Acetaminophen 500 MG Tablet 1000 MG PO (21:18)
[2024-07-09] MEDS: Senna/Docusate Sodium 1 Tablet PO (21:18)
[2024-07-09] MEDS: Baclofen 10 MG Tablet PO (23:22)
[2024-07-09] MEDS: Vancomycin IV 1,000 MG/200 ML BAG 200 MG IV (23:26)
[2024-07-09] MEDS: 0.9% Normal Saline (100mL Bag) 100 ML 200 ML IV (23:29)
[2024-07-09] MEDS: 0.9% Saline Lock 10 ML Syringe IV (23:29)
[2024-07-09] MEDS: Mupirocin Ointment 22gm Tube 1 APPLIC NASAL (23:30)
--- NOTE | 2024-07-10 01:20 | PCM.RX.CS ---
Consult Antibiotic Management Pharmacy has been consulted to manage selected antibiotic: Vancomycin Type of Intervention Type of Consult: New start Pharmacy Plan for Drug Dosing Pharmacy Plan for Drug Dosing: Pharmacy Service will continue to monitor and adjust dosing as required. PATIENT CURRENTLY ON 1GM Q12H PRIOR TO ADMISSION. CONTINUE CURRENT DOSE AND DRAW TROUGH PRIOR TO 4TH DOSE. PER INCOMING ORDER, STOP DATE OF 08/08. LAST DOSEGIVEN AROUND 1000 ON 07/09. LAST TROUGH DRAWN HERE ON 07/06. Follow-Up Labs Follow-Up Labs: Trough: Vancomycin Date/Time Labs Ordered Labs to be done on [date and time ordered]: 07/11 @ 8044
[2024-07-10 05:57] VITALS: RESP 15
[2024-07-10 07:47] LABS: Absolute Lymphocyte Count 1.53 X10^3/uL (0.83-4.51); Absolute Neutrophil Count 4.4 X10^3/uL (2.0-7.7); Basophil# 0.02 X10^3/uL; Basophil% 0.3 % (0-1); Eosinophil# 0.22 X10^3/uL; Eosinophils% 3.3 % (0-5); Hematocrit 35.2 % (37-47); Hemoglobin 11.1 g/dL (12.0-15.0); Lymphocyte # 1.53 X10^3/ul (0.83-4.51); Lymphocyte % 22.9 % (19-41); Mean Corp Hgb Conc 31.5 g/dL (32-36); Mean Corpuscular Hgb 29.4 pg (27.0-32.0); Mean Corpuscular Volume 93.1 fL (81-99); Mean Platelet Vol. 9.7 fl (6.2-12.0); Monocyte# 0.52 X10^3/uL; Monocyte% 7.8 % (0-10); NRBC Flagged by Analyzer 0 % (0-5); Neutrophil # 4.37 X10^3/uL (2.7-7.7); Neutrophil % 65.3 % (47-70); Platelet Count 177 K/mm3 (150-450); RBC Distribution Width CV 13.8 % (11.6-14.6); RBC Distribution Width SD 47.6 fl (35.1-43.9); Red Blood Count 3.78 M/mm3 (4.2-5.4); White Blood Count 6.7 K/mm3 (4.4-11.0)
[2024-07-10 08:07] LABS: Anion Gap 6 (5-15); BUN 8 mg/dL (7-18); Calcium,Total 8.7 mg/dL (8.5-10.1); Chloride 108 mmol/L (98-107); Creatinine, Serum 0.57 mg/dL (0.55-1.02); EST Glomerular Filtration Rate 111 mL/min (>60); Est Glom Filt Rate - Afr Amer 134 mL/min (>60); Estimated Creatinine Clearance 67.42 ml/min; Glucose 102 mg/dL (74-106); Potassium 3.8 mmol/L (3.5-5.1); Sodium Level 142 mmol/L (136-145)
[2024-07-10 08:09] VITALS: BP 115/77; PULSE 86; TEMP 36.3; O2SAT 86
[2024-07-10] MEDS: Loratadine 10 MG Tablet PO (08:15)
[2024-07-10] MEDS: Senna/Docusate Sodium 1 Tablet PO ×2 (08:15→22:00)
[2024-07-10] MEDS: Cyanocobalamin 500 MCG Tablet 1000 MCG PO (08:15)
[2024-07-10] MEDS: Mupirocin Ointment 22gm Tube 1 APPLIC NASAL ×2 (08:15→21:58)
[2024-07-10] MEDS: Pantoprazole Sodium 40 MG Tablet PO (08:15)
[2024-07-10] MEDS: Ascorbic Acid 500 MG Tablet PO (08:16)
[2024-07-10] MEDS: Cholecalciferol (VIT D3) 25 MCG TABLET (1,000 UNITS) 50 MCG PO (08:16)
[2024-07-10] MEDS: Vancomycin IV 1,000 MG/200 ML BAG 200 MG IV ×2 (11:06→22:00)
[2024-07-10] MEDS: Tuberculin,Purif.prot.deriv. 50 TU/ML Vial 0.1 ML ID (11:07)
[2024-07-10] MEDS: 0.9% Saline Lock 10 ML Syringe IV ×2 (11:08→22:02)
--- NOTE | 2024-07-10 14:45 | NURSING ---
Addendum entered by Susana Bearden 07/10/24 15:50: Call back, ok for CT to be done here. Order faxed to CT, they will plan to scan on 07/15/24. Disc needs sent to appt with resident. Office wanted to move appt to 07/16/24 at 1045. Resident updated on changes, her sister will transport her to [facility]. Original Note: Called and left VM with neurology office, asking about CT being done here instead of her going to [place]. Await return call.
--- NOTE | 2024-07-10 14:50 | NURSING ---
Called and spoke with Dr. Smith's office, they only have a tdap vaccination on record. Nothing else.
[2024-07-10] MEDS: Acetaminophen 500 MG Tablet 1000 MG PO (15:54)
--- NOTE | 2024-07-10 16:29 | PCM.PN.DRR ---
Documented by User: Eric Morelos 07/10/24 16:37 TCU RX Drug Regimen Review Subjective/Objective Subjective/Objective Subjective: TCU admission note. 74 year old female with recent left craniotomy for infected mrsa bone flap hospitalized for new ICH/SDH, treated without surgery, admitted to TCU with debility, here for rehabilitation, strengthening, intravenous antibiotics, prior to discharge home alone. Objective: Allergies Penicillins Allergy (Verified 07/06/24 13:17) Rash prednisone Allergy (Verified 07/06/24 13:17) Rash ibuprofen Adverse Reaction (Verified 07/06/24 13:17) Bleeding NOT TO TAKE DUE TO PAST BRAIN BLEED Current Medications Generic Name Dose Route Start Last Admin Trade Name Freq PRN Reason Stop Dose Admin Acetaminophen 1,000 mg 07/09/24 19:38 07/10/24 15:54 Acetaminophen 500 Mg Tablet PO 1,000 mg Q6H PRN Administration headache Ascorbic Acid 500 mg 07/10/24 10:00 07/10/24 08:16 Ascorbic Acid 500 Mg Tablet PO 500 mg DAILY JACQUELINE Administration Baclofen 10 mg 07/09/24 19:38 07/09/24 23:22 Baclofen 10 Mg Tablet PO 10 mg BID PRN Administration muscle spasm Cholecalciferol 50 mcg 07/10/24 10:00 07/10/24 08:16 Cholecalciferol (Vit D3) 25 Mcg Tablet (1,000 Units) PO 50 mcg DAILY JACQUELINE Administration Cyanocobalamin 1,000 mcg 07/10/24 08:00 07/10/24 08:15 Cyanocobalamin 500 Mcg Tablet PO 1,000 mcg BREAKFAST JACQUELINE Administration Vancomycin IV-PHARMACY TO DOSE 500 mls @ 250 mls/hr 07/09/24 21:13 1 each/ Sodium Chloride IV X1 PRN Rx to Dose Protocol Sodium Chloride 100 mls @ 15 mls/hr 07/09/24 21:14 07/10/24 00:37 IV Infused .Q6H40M PRN Infusion Saline Flush Sodium Chloride 100 mls @ 15 mls/hr 07/09/24 21:14 IV .Q6H40M PRN Additional IVPB Infusion Vancomycin HCl 1,000 mg in 200 mls @ 200 mls/hr 07/09/24 22:00 07/10/24 12:06 Vancomycin IV 08/08/24 23:59 Infused Q12H JACQUELINE Infusion Loratadine 10 mg 07/10/24 10:00 07/10/24 08:15 Loratadine 10 Mg Tablet PO 10 mg DAILY JACQUELINE Administration Mupirocin 1 applic 07/09/24 22:00 07/10/24 08:15 Mupirocin Ointment 22gm Tube NASAL 07/14/24 10:01 1 applic BID JACQUELINE Administration Protocol Ondansetron HCl 4 mg 07/09/24 19:38 Ondansetron Odt 4 Mg Tablet PO Q8H PRN nausea and vomiting Oxycodone HCl 2.5 mg 07/09/24 19:47 Oxycodone 5 Mg Tablet PO Q4H PRN PRN pain (scale score 7-10) Pantoprazole Sodium 40 mg 07/10/24 10:00 07/10/24 08:15 Pantoprazole Sodium 40 Mg Tablet PO 40 mg DAILY JACQUELINE Administration Senna/Docusate Sodium 1 tablet 07/09/24 22:00 07/10/24 08:15 Senna/Docusate Sodium 1 Tablet PO 1 tablet BID JACQUELINE Administration Sodium Chloride 10 - 40 ml 07/09/24 20:31 07/10/24 11:08 0.9% Saline Lock 10 Ml Syringe IV 30 ml UD PRN Administration Open End PICC Flush Sodium Chloride 10 - 40 ml 07/09/24 20:31 0.9 % Nacl (Sterile) Posiflush 10 Ml IV UD PRN Port access or dressing change Tuberculin PPD 0.1 ml 07/17/24 10:00 Tuberculin,Purif.Prot.Deriv. 50 Tu/Ml Vial ID 07/17/24 10:01 X1 ONE Vancomycin Protocol 1 lab 07/11/24 07:30 Vancomycin Trough/Random Due 07/11/24 11:30 DAILY [facility] Problem List Vitamin D deficiency (Acute) Essential (primary) hypertension (Acute) MRSA (methicillin resistant Staphylococcus aureus) infection (Acute) Status post craniotomy (Acute) Headache (Acute) Allergic rhinitis (Acute) Muscle spasm (Acute) B12 deficiency (Acute) GERD (gastroesophageal reflux disease) (Acute) Infection of cranial bone flap (Acute) ICH (intracerebral hemorrhage) (Acute) Debility (Acute) Vital Signs Temp Pulse Resp BP Pulse Ox O2 Del Method 97.3 F L 86 15 115/77 86 Room Air 07/10/24 08:09 07/10/24 08:09 07/10/24 05:57 07/10/24 08:09 07/10/24 08:09 07/10/24 08:09 Oxygen Delivery Method Room Air Weight: 78.063 kg Body Mass Index (BMI) 26.9 Sodium 142 mmol/L (136-145) 07/10/24 07:25 Potassium 3.8 mmol/L (3.5-5.1) 07/10/24 07:25 Chloride 108 mmol/L (98-107) H 07/10/24 07:25 Carbon Dioxide 28.0 mmol/L (21.0-32.0) 07/10/24 07:25 Anion Gap 6 (5-15) 07/10/24 07:25 BUN 8 mg/dL (7-18) 07/10/24 07:25 Creatinine 0.57 mg/dL (0.55-1.02) 07/10/24 07:25 Est GFR (MDRD) Af Amer 134 mL/min (>60) 07/10/24 07:25 Est GFR (MDRD) Non-Af 111 mL/min (>60) 07/10/24 07:25 BUN/Creatinine Ratio 14.0 RATIO (10-20) 07/10/24 07:25 Glucose 102 mg/dL (74-106) 07/10/24 07:25 Assessment/Plan: 1. Pain: acetaminophen 1000mg po q6h PRN pain, oxycodone 2.5 mg PO Q4h PRN pain. The patient has used 2 PRN doses of acetaminophen and 0 PRN doses of oxycodone so far this admission. Please continue to monitor for pain levels, LFTs (AST/ALT = 18/24 U/L on 07/05/24), for respiratory depression, constipation, syncope/ataxia/falls/drowsiness and dizziness. 2. Bowel: senna/docusate 1 tab po bid. Please continue to monitor for constipation/diarrhea, and bowel movements (last 07/09/24)/ 3. S. Aureus infected bone flap s/p surgical removal - Vancomycin IV via PICC line for total 6 weeks therapy. Current dose is 1000mg IV q12h. Please continue to monitor vanc levels/doses as recommended by pharmacy to achieve trough goal of 15-20 mcg/ml. Next trough scheduled for tomorrow 07/11/24 per pharmacy. Please continue to monitor for improvement of infection, signs of worsening infection such as fever (last temp 97.3 F), chills, WBC counts (WBC = 6.7 K/mm3. Also monitor renal function (CrCl 67 ml/min, SCr 0.57 mg/dL today). ID is also following patient. 4. GERD: pantoprazole 40mg po daily. Continue to monitor for symptoms of reflux, diarrhea. 5. Allergic rhinitis: loratadine 10mg po daily. Please continue to monitor for increased allergy symptoms, headache, drowsiness. 6. Muscle spasm: baclofen 10mg po bid prn. The patient has used 1 PRN dose of baclofen so far. Please continue to monitor for muscle spasms, pain, and confusion/drowsiness,dizziness. 7. Vitamin C/D/B12 deficiencies: ascorbic acid 500mg po daily, cholecalciferol 50mcg po daily, and Vit B12 500mcg po daily. Please consider ordering a vitamin D (Vitamin D = 53.6ng/mL on 07/05/24), and vitamin B12 levels (B12 = 1139 pg/mL on 07/05/24). 8. Skin: mupirocin (Bactroban) ointment BID to incision line through 07/08/24. Please continue to monitor for s/s of infection around incision. 9. Nausea: ondansetron 4 mg PO Q8H PRN nausea and vomiting. Please continue to monitor for PRN medication usage (no doses used so far), and for nausea/vomiting. Assessment/Plan for indications treated with psychotropic medications: NA Medical chart and medication regimen reviewed. The following medication irregularities or issues were identified: NA Date Date of Note: 07/10/24 Documented by User: Dr. Gopi Fox MD 07/10/24 17:07 TCU RX Drug Regimen Review Provider Comments Provider responsibility Provider Comments to Recommendations by Pharmacy Agree
[2024-07-11] MEDS: Acetaminophen 500 MG Tablet 1000 MG PO (08:02)
[2024-07-11] MEDS: Cyanocobalamin 500 MCG Tablet 1000 MCG PO (08:02)
[2024-07-11] MEDS: Mupirocin Ointment 22gm Tube 1 APPLIC NASAL ×2 (08:02→21:37)
[2024-07-11] MEDS: Cholecalciferol (VIT D3) 25 MCG TABLET (1,000 UNITS) 50 MCG PO (08:03)
[2024-07-11] MEDS: Pantoprazole Sodium 40 MG Tablet PO (08:03)
[2024-07-11] MEDS: Loratadine 10 MG Tablet PO (08:03)
[2024-07-11] MEDS: Ascorbic Acid 500 MG Tablet PO (08:03)
[2024-07-11 08:06] VITALS: BP 95/77; PULSE 89; RESP 16; TEMP 36.4; O2SAT 96
--- NOTE | 2024-07-11 08:44 | NURSING ---
Group Therapist Note; Activity Asset: Sandor Cox has returned to TCU for continued therapy She is independent in her choice of daily activities. 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 Staff will encourage social activities, remind her of weekly activities and respect her right to say no.
[2024-07-11 10:32] LABS: Vancomycin, Trough Level 17.2 ug/mL (5.0-15.0)
--- NOTE | 2024-07-11 10:44 | PHA.PHARE_ITS ---
Consult Antibiotic Management Pharmacy has been consulted to manage selected antibiotic: Vancomycin Type of Intervention Type of Consult: Follow-up Prior Doses of Antibiotics Prior Doses of Antibiotics Received/Current Regimen: current dose is 1000mg IV q12h Labs Labs: Sodium 142 mmol/L (136-145) 07/10/24 07:25 Potassium 3.8 mmol/L (3.5-5.1) 07/10/24 07:25 Chloride 108 mmol/L (98-107) H 07/10/24 07:25 Carbon Dioxide 28.0 mmol/L (21.0-32.0) 07/10/24 07:25 Anion Gap 6 (5-15) 07/10/24 07:25 BUN 8 mg/dL (7-18) 07/10/24 07:25 Creatinine 0.57 mg/dL (0.55-1.02) 07/10/24 07:25 Est GFR (MDRD) Af Amer 134 mL/min (>60) 07/10/24 07:25 Est GFR (MDRD) Non-Af 111 mL/min (>60) 07/10/24 07:25 BUN/Creatinine Ratio 14.0 RATIO (10-20) 07/10/24 07:25 Glucose 102 mg/dL (74-106) 07/10/24 07:25 Vancomycin Trough 17.2 ug/mL (5.0-15.0) H 07/11/24 09:30 Dosing Weight Weight used for dosin kg Estimated Creatinine Clearance Estimated Creatinine Clearance: 67 ml/min Goal Trough Goal Trough: 15-20 mcg/mL Pharmacy Plan for Drug Dosing Pharmacy Plan for Drug Dosing: The vanc trough drawn at 09:30 today (approx 11.5 hours after the previous dose) was 17.2. This is in goal range so will keep same dose. Repeat a trough in [address] [facility] protocol. Pharmacy Service will continue to monitor and adjust dosing as required. Follow-Up Labs Follow-Up Labs: Trough: Vancomycin Date/Time Labs Ordered Labs to be done on [date and time ordered]: 07/13/24 09:30
[2024-07-11] MEDS: Vancomycin IV 1,000 MG/200 ML BAG 200 MG IV ×2 (11:44→21:29)
[2024-07-11] MEDS: 0.9% Saline Lock 10 ML Syringe IV (11:44)
--- NOTE | 2024-07-11 11:50 | CASEMGMT ---
Social Work SW met with pt. Pt readmitted. No changes to assessment. Educated to pt using 3 days of Medicare benefit. Reminded pt to have dtr provide copies of advanced directives. Pt remains on IV ATB through 08/08. SW will continue to follow for DC planning. Sandy Kenny [employer]
--- NOTE | 2024-07-11 14:23 | CHAPLAIN ---
Type of Pastoral Visit _x__ Initial Visit ___ Follow-up Visit ___ On-call Visit ___ General Patient Visit ___ Spiritual Assessment ___ Family Conference ___ Bereavement ___ Rapid Response ___ Code Blue ___ Other (describe below) Pastoral Care Referral From _x__ Patient ___ Family ___ Nurse ___ Physician ___ Blueprint Maker ___ Mesmerist ___ Other (describe below) Sacrament/Intervention _x__ Active listening ___ Anointing ___ Gnosticist ___ Bereavement ___ Communion ___ Carol exploration ___ _x__ Life review _x__ Prayer ___ Reconciliation ___ Sacrament of Sick _x__ Supportive presence ___ Wedding ___ Other (describe below) Pastoral Comments patient and a sister are in the room; pt is upbeat and speaks of 'getting out of rules for walking on her own'; pt expresses gladness to be 'back here for this treatment phase and closer to home'; pt welcomes a prayer for support today acknowledging that she has had many people in this afternoon
[2024-07-12] MEDS: Acetaminophen 500 MG Tablet 1000 MG PO ×2 (06:58→20:47)
[2024-07-12] MEDS: Mupirocin Ointment 22gm Tube 1 APPLIC NASAL ×2 (08:27→20:49)
[2024-07-12] MEDS: Ascorbic Acid 500 MG Tablet PO (08:28)
[2024-07-12] MEDS: Cyanocobalamin 500 MCG Tablet 1000 MCG PO (08:28)
[2024-07-12] MEDS: Senna/Docusate Sodium 1 Tablet PO ×2 (08:28→20:47)
[2024-07-12] MEDS: Cholecalciferol (VIT D3) 25 MCG TABLET (1,000 UNITS) 50 MCG PO (08:28)
[2024-07-12] MEDS: Pantoprazole Sodium 40 MG Tablet PO (08:28)
[2024-07-12] MEDS: Loratadine 10 MG Tablet PO (08:28)
[2024-07-12] MEDS: Vancomycin IV 1,000 MG/200 ML BAG 200 MG IV ×2 (09:37→22:21)
[2024-07-12] MEDS: oxyCODONE 5 MG Tablet 2.5 MG PO (09:42)
[2024-07-12 10:32] VITALS: BP 100/43; PULSE 85; RESP 16; TEMP 36.4; O2SAT 95
[2024-07-12] MEDS: 0.9% Saline Lock 10 ML Syringe IV (22:25)
[2024-07-13] MEDS: Cyanocobalamin 500 MCG Tablet 1000 MCG PO (08:48)
[2024-07-13] MEDS: Ascorbic Acid 500 MG Tablet PO (08:48)
[2024-07-13] MEDS: Cholecalciferol (VIT D3) 25 MCG TABLET (1,000 UNITS) 50 MCG PO (08:49)
[2024-07-13] MEDS: Mupirocin Ointment 22gm Tube 1 APPLIC NASAL ×2 (08:49→22:06)
[2024-07-13] MEDS: Pantoprazole Sodium 40 MG Tablet PO (08:49)
[2024-07-13] MEDS: Loratadine 10 MG Tablet PO (08:49)
[2024-07-13] MEDS: Senna/Docusate Sodium 1 Tablet PO (08:49)
[2024-07-13] MEDS: Acetaminophen 500 MG Tablet 1000 MG PO ×2 (08:49→22:05)
[2024-07-13 09:56] VITALS: BP 102/60; PULSE 96; RESP 16; TEMP 36.4; O2SAT 99
[2024-07-13 11:05] LABS: Vancomycin, Trough Level 18.9 ug/mL (5.0-15.0)
[2024-07-13] MEDS: Vancomycin IV 1,000 MG/200 ML BAG 200 MG IV ×2 (11:24→21:55)
[2024-07-13] MEDS: 0.9% Saline Lock 10 ML Syringe IV ×3 (11:25→23:05)
--- NOTE | 2024-07-13 11:26 | PCM.RX.CS ---
Consult Antibiotic Management Pharmacy has been consulted to manage selected antibiotic: Vancomycin Type of Intervention Type of Consult: Follow-up Suspected Infection Suspected Infection: Other Labs Labs: Sodium 142 mmol/L (136-145) 07/10/24 07:25 Potassium 3.8 mmol/L (3.5-5.1) 07/10/24 07:25 Chloride 108 mmol/L (98-107) H 07/10/24 07:25 Carbon Dioxide 28.0 mmol/L (21.0-32.0) 07/10/24 07:25 Anion Gap 6 (5-15) 07/10/24 07:25 BUN 8 mg/dL (7-18) 07/10/24 07:25 Creatinine 0.57 mg/dL (0.55-1.02) 07/10/24 07:25 Est GFR (MDRD) Af Amer 134 mL/min (>60) 07/10/24 07:25 Est GFR (MDRD) Non-Af 111 mL/min (>60) 07/10/24 07:25 BUN/Creatinine Ratio 14.0 RATIO (10-20) 07/10/24 07:25 Glucose 102 mg/dL (74-106) 07/10/24 07:25 Vancomycin Trough 18.9 ug/mL (5.0-15.0) H 07/13/24 10:10 Goal Trough Goal Trough: 15-20 mcg/mL Pharmacy Plan for Drug Dosing Pharmacy Plan for Drug Dosing: VANCOMYCIN LEVEL RECEIVED Current Vancomycin Dose: 1000mg q12h (10,22) Number of Doses Received: x7 of current dose Vancomycin Level: 18.9 (drawn 07/13 at 1010) Hours Since Last Dose: 11.5 hours since last 1000mg dose Renal Function: SrCr 0.57 Renal Function Trend: No new BMP Lab/Micro: Vancomycin Plan/Comments: resulted trough of 18.9 is within the ordered goal trough range of 15-20. recommend continuing current dose of vancomycin 1000mg q12h Pending Level: 07/15/24 at 2130 Pharmacy Service will continue to monitor and adjust dosing as required. Follow-Up Labs Follow-Up Labs: Trough: Vancomycin (07/15/24 at 2130)
[2024-07-13] MEDS: oxyCODONE 5 MG Tablet 2.5 MG PO (13:01)
--- NOTE | 2024-07-13 16:49 | NURSING ---
New orders per Dr. Fox to increase kareen. senna to 2 tabs BID. N.O. for prn magnesium citrate. N.O. to increase prn oxycodone to 10mg q4hr.
[2024-07-13] MEDS: oxyCODONE 5 MG Tablet 10 MG PO (17:02)
[2024-07-13] MEDS: Magnesium Citrate 300 ML PO (17:03)
[2024-07-14] MEDS: 0.9% Saline Lock 10 ML Syringe IV ×2 (04:54→09:28)
[2024-07-14] MEDS: Ascorbic Acid 500 MG Tablet PO (09:27)
[2024-07-14] MEDS: Pantoprazole Sodium 40 MG Tablet PO (09:27)
[2024-07-14] MEDS: Cholecalciferol (VIT D3) 25 MCG TABLET (1,000 UNITS) 50 MCG PO (09:27)
[2024-07-14] MEDS: Loratadine 10 MG Tablet PO (09:27)
[2024-07-14] MEDS: Cyanocobalamin 500 MCG Tablet 1000 MCG PO (09:27)
[2024-07-14] MEDS: Mupirocin Ointment 22gm Tube 1 APPLIC NASAL (09:28)
[2024-07-14] MEDS: 0.9% Normal Saline (100mL Bag) 100 ML 15 ML IV (09:28)
[2024-07-14] MEDS: Vancomycin IV 1,000 MG/200 ML BAG 200 MG IV (09:29)
--- NOTE | 2024-07-14 09:57 | NURSING ---
Offered covid vaccine, VIS provided. Resident declines at this time.
[2024-07-14] MEDS: oxyCODONE 5 MG Tablet 10 MG PO (11:21)
[2024-07-14] MEDS: Acetaminophen 500 MG Tablet 1000 MG PO (12:02)
[2024-07-14] MEDS: Ondansetron ODT 4 MG Tablet PO (12:02)
--- NOTE | 2024-07-14 12:16 | NURSING ---
c/o 12/11 headache. PRN pain meds given, pt had moderate emesis shortly after. PRN Zofran and Tylenol given. pt noted to be more unsteady than her normal, instructed pt to call for assistance with ambulating until she is felling better. pt voice understanding. Will continue to monitor.
--- NOTE | 2024-07-14 13:54 | NURSING ---
Assessed resident with Lesvia RÍOS. She has been A&O x3, up ad el in room but at this time unable to sit up in bed alone, leaning to left side, therapist having to hold her up. She is slow to respond to questions, can't finish a sentence without trailing off. Says her vision is different from yesterday, nods yes when asked if her vision is blurry. Strength equal bilaterally. Vitals and blood sugar WNL except slightly low pulse. Called stroke alert. micrographics services supervisor Aline to room, sent resident to ER with security shift supervisor and Lesvia RÍOS.
[2024-07-14 14:04] LABS: Bedside Glucose 104 mg/dL (74-106)
--- NOTE | 2024-07-14 18:59 | DS.PCM_ITS ---
Providers Date of Admission: 07/09/24 Primary Care Physician: Dr. Mary Smith DO Reason For Visit: ICH WITH MID LINE SHIFT Diagnosis Discharge Diagnosis (1) Debility: Status: Acute Code(s): R53.81 - Other malaise (2) ICH (intracerebral hemorrhage): Status: Acute Code(s): I61.9 - Nontraumatic intracerebral hemorrhage, unspecified (3) Status post craniotomy: Status: Inactive Code(s): Z98.890 - Other specified postprocedural states (4) Headache: Status: Inactive Code(s): R51.9 - Headache, unspecified (5) Infection of cranial bone flap: Status: Acute Code(s): T81.43XA - Infection following a procedure, organ and space surgical site, initial encounter (6) MRSA (methicillin resistant Staphylococcus aureus) infection: Status: Acute Code(s): A49.02 - Methicillin resistant Staphylococcus aureus infection, unspecified site (7) Essential (primary) hypertension: Status: Acute Code(s): I10 - Essential (primary) hypertension (8) Muscle spasm: Status: Acute Code(s): M62.838 - Other muscle spasm (9) B12 deficiency: Status: Acute Code(s): E53.8 - Deficiency of other specified B group vitamins (10) Vitamin D deficiency: Status: Acute Code(s): E55.9 - Vitamin D deficiency, unspecified (11) Allergic rhinitis: Status: Acute Code(s): J30.9 - Allergic rhinitis, unspecified (12) GERD (gastroesophageal reflux disease): Status: Acute Code(s): K21.9 - Gastro-esophageal reflux disease without esophagitis Plan 74 year old female with recent left craniotomy for infected mrsa bone flap hospitalized for new ICH/SDH, treated without surgery, admitted to TCU with debility, here for rehabilitation, strengthening, intravenous antibiotics, prior to discharge home alone. * Debility - PT/OT. * Pain - Tylenol 1000mg q6 prn headache, Oxycodone 2.5mg q4 prn pain (7-10). * Bowel - senna/colace 1 tablet bid. * Adult immunization - Administer pneumonia vaccine, covid vaccine, flu vaccine as appropriate. * DVT prophylaxis - Contraindicated, she has had 8 spontaneous brain bleeds. * Vitamin C deficiency - Vitamin C 500mg daily. * Muscle spasm - Baclofen 10mg bid prn. * Vitamin D deficiency - D3 50mcg daily. * Vitamin B12 deficiency - B12 1000mcg daily. * Allergic rhinitis - Loratadine 10mg daily. * Nausea - Zofran odt 4mg q8 prn. * GERD - Pantoprazole 40mg daily. * MRSA decolonization - Mupirocin ointment nasal bid. * MRSA infected bone flap s/p craniotomy - Vancomycin IV thru 08/08/2024. Medications at Discharge Home Medications pantoprazole 40 mg tablet,delayed release (Protonix) 40 mg PO DAILY GERD 05/09/21 cyanocobalamin (vitamin B-12) 1 tab PO DAILY supplement 08/05/23 potassium gluconate 600 mg (99 mg) tablet 600 mg PO DAILY SUPPLEMENT 08/05/23 baclofen 10 mg tablet 10 mg PO BID PRN muscle spasm 09/26/23 cholecalciferol (vitamin D3) 50 mcg (2,000 unit) capsule (Vitamin D3) 50 mcg PO DAILY supplement 09/26/23 loratadine 10 mg tablet (Claritin) 10 mg PO DAILY allergies 01/29/24 acetaminophen 500 mg capsule 1,000 mg PO Q6H PRN headache 07/03/24 ascorbic acid (vitamin C) 500 mg tablet 500 mg PO DAILY supplement 07/03/24 mupirocin 2 % topical ointment 1 applic topical BID ointment for incision 07/03/24 sennosides 8.6 mg capsule (senna) 17.2 mg PO QHS PRN stool softner 07/03/24 ondansetron 4 mg disintegrating tablet 4 mg PO Q8H PRN nausea and vomiting 07/09/24 oxycodone 5 mg tablet 2.5 mg PO Q6H PRN pain (scale score 7-10) 07/09/24 Hospital Course Operations None Procedures None Summary of Care Provided Minutes Spent on Discharge: 30 Hospital Course: 74 year old female with recent left craniotomy for infected mrsa bone flap hospitalized for new ICH/SDH, treated without surgery, admitted to TCU with debility, here for rehabilitation, strengthening, intravenous antibiotics, prior to discharge home alone. 07/14/2024 Resident with change in mental status, concern with recurrent brain bleed. Discharge to [facility] 07/14/2024 for evaluation, admission to hospital. Physical Exam Const alert General Appearance: cooperative HEENT normocephalic HEENT Narrative: Left craniotomy, helmet. Eyes PERRL and EOMs intact bilaterally Neck supple, no JVD and no carotid bruits Resp normal respiratory effort, normal air movement and clear to auscultation bilaterally Cardio regular rate and regular rhythm GI normal to inspection, nondistended, normoactive bowel sounds, non-tender and non-distended Extremity normal capillary refill Extremity Narrative: Left upper extremity PICC line. General Extremity: Negative for edema Skin no rashes or lesions noted General Skin Exam: no breakdown Psych affect normal Appearance: appropriate Weight / BMI Weight Weight: 78.063 kg Body Mass Index (BMI) 26.9 ABG / Lab / Microbiology Data 07/10/24 07:25 07/10/24 07:25 Laboratory: Laboratory Results - last 24 hr 07/14/24 13:45: POC Glucose 104 D/C Instructions Discharge Diet: No restrictions Discharge Activity: Return to Normal Activity, May Shower and Use Walker Weight Bearing Status: Weight bearing as tolerated Call your doctor if you observe: Fever of 101 or Higher, Inability to urinate, Inability to have a bowel movement, Shortness of breath, Dizziness, Fainting spells, Swelling in the ankles, Chest pain and Uncontrolled pain DC O2, CPAP, BIPAP Needs Home O2 Discharge instructions: No Additional Instructions: Discharge to [facility] 07/14/2024 for evaluation, admission to hospital. Please Follow Up With: Jim Rodriguez MD Meaningful Use Info Meaningful Use Meaningful Use Diagnoses (Choose all that apply): Hemorrhagic CVA CVA Therapy Assessed for PT,OT and/or ST?: Yes Ischemic Stroke Statin Dosing Therapy Reference: STATIN DOSE THERAPY REFERENCE: * Patients > 75 years receive moderate or high dose statin therapy. * Patients 75 years or YOUNGER should receive HIGH intensity statin dose unless contraindicated. You will be required to document reason for non-treatment if statin daily dose does not meet guidelines. HIGH DOSE STATIN THERAPY DAILY Atorvastatin > than or = to 40 mg Rosuvastatin > than or = to 20 mg Amlodipine + Atorvastatin > than or = to 2.5/40 mg Ezetimibe + Simvastatin 10/80 mg Simvastatin 80mg Discharge Plan Admission Admit Date/Time: 07/09/24 18:57 Primary Reason for Your Visit: Debility. Attending Provider: Gopi Fox Chi Primary Care Provider: Mary Smith Instructions Additional Instructions / Restrictions: Discharge to [facility] 07/14/2024 for evaluation, admission to hospital. Discharge Orders/Prescriptions Prescriptions: No Action loratadine [Claritin] 10 mg tablet 10 mg PO DAILY pantoprazole [Protonix] 40 MG tablet,delayed release (DR/EC) 40 mg PO DAILY cyanocobalamin (vitamin B-12) 1 tab PO DAILY potassium gluconate 600 mg (99 mg) tablet 600 mg PO DAILY ondansetron 4 mg tablet,disintegrating 4 mg PO Q8H PRN (Reason: nausea and vomiting) Rx Instructions: Can take up to 7 days, 07/16/24 is stop date oxycodone 5 mg tablet 2.5 mg PO Q6H PRN (Reason: pain (scale score 7-10)) Rx Instructions: can take up to 5 days, 07/14/24 cholecalciferol (vitamin D3) [Vitamin D3] 50 mcg (2,000 unit) capsule 50 mcg PO DAILY baclofen 10 mg Tablet 10 mg PO BID PRN (Reason: muscle spasm) acetaminophen 500 mg capsule 1,000 mg PO Q6H PRN (Reason: headache) senna 8.6 mg capsule 17.2 mg PO QHS PRN (Reason: stool softner) mupirocin 2 % ointment 1 applic topical BID ascorbic acid (vitamin C) 500 mg Tablet 500 mg PO DAILY Referrals / Follow Up: Mary Smith DO [Primary Care Provider] - Disposition Disposition (needs filled in before D/C Order can be placed): Acute Care Hospital [facility]
== END 2024-07-14 18:48 | disposition short-term general hospital (02) | DRG 919 ==
PROVIDERS: Admitting Provider Family Medicine Geriatric Medicine; PCP Family Medicine; Visit Provider Family Medicine Geriatric Medicine
DX: T86.832 Bone graft infection (principal); I62.00 Nontraumatic subdural hemorrhage, unspecified; I10 Essential (primary) hypertension; E53.8 Deficiency of other specified B group vitamins; E55.9 Vitamin D deficiency, unspecified; K21.9 Gastro-esophageal reflux disease without esophagitis; J30.9 Allergic rhinitis, unspecified; M62.838 Other muscle spasm; Z87.891 Personal history of nicotine dependence; Y83.2 Surgical operation with anastomosis, bypass or graft as the cause of abnormal reaction of the patient, or of later complication, without mention of misadventure at the time of the procedure; B95.62 Methicillin resistant Staphylococcus aureus infection as the cause of diseases classified elsewhere; Z79.899 Other long term (current) drug therapy; R41.82 Altered mental status, unspecified
CPT/HCPCS: 36415; 80048; 80202; 82962; 85025; 97110; 97116; 97162; 97166; 97530; 97535; 97802; A4216

== ENCOUNTER 2024-07-14 13:59 | Observation (INO) | payer MEDICARE, OTHER, SELFPAY ==
[2024-07-14] VITALS (16 sets, daily range): BP systolic 91–121; BP diastolic 44–74; PULSE 74–96; RESP 13–22; TEMP 36.6–36.7; O2SAT 91–97; BMI 28.0; BMI 27.1
--- NOTE | 2024-07-14 14:07 | CT_ITS ---
PROCEDURE: STROKE BRAIN/HEAD WITHOUT CONT REASON FOR EXAM: Neuro deficit, acute. Stroke suspected. TECHNIQUE: Noncontrasted CT of the head, with sagittal and coronal reconstructed images: COMPARISON: Head CT of 07/06/2019. FINDINGS: Large left-sided craniotomy again noted. A new/worsened left subdural hematoma is seen, extending from the frontal to the posterior parietal lobes, with increased sulcal effacement bilaterally and with increased midline shift to the right, now measured at approximately 14 mm. Ventricular size is probably still within the normal range. The 4th ventricle and perimesencephalic cistern et are not substantially narrowed. A prominent left sphenoid sinus air-fluid level is seen, concerning for acute sinusitis. The remaining portions of the visualized paranasal sinuses appear clear. Mastoid air cells appear clear. CT/STROKE Brain/Head without Cont IMPRESSION: 1. New/worsened left subdural hematoma, with increased mass effect and midline shift to the right. 2. Left sphenoid sinus air-fluid level, concerning for acute sinusitis. One or more dose reduction techniques were used (e.g., Automated exposure contr ol, adjustment of the mA and/or kV according to patient size, use of iterative reconstruction technique). Reading Location: [id number]
--- NOTE | 2024-07-14 14:07 | EKG12_ITS ---
Test Reason : POSS STROKE Blood Pressure : */* mmHG Vent. Rate : 81 BPM Atrial Rate : 81 BPM P-R Int : 156 ms QRS Dur : 124 ms QT Int : 404 ms P-R-T Axes : 14 25 -3 degrees QTcB Int : 469 ms Sinus rhythm with occasional Premature ventricular complexes Right bundle branch block T wave abnormality, consider inferior ischemia Abnormal ECG Confirmed by Julián Ott ([id number]), news videotape editor SUSHIL RUCKER ([id number]) on 07/15/2024 10:02:10 AM Referred By: Confirmed By: Julián Ott
--- NOTE | 2024-07-14 14:08 | CT_ITS ---
PROCEDURE: STROKE CTA HEAD AND NECK W/CON REASON FOR EXAM: Acute stroke suspected. TECHNIQUE: CTA imaging of the head and neck from the aortic arch to the skull vertex with intravenous contrast. 3D reconstructions. CONTRAST: 100 cc of Isovue-300. COMPARISON: Comparison is made with prior CT scan of the head done earlier in the day. FINDINGS: Status post right lobe of the thyroid resection. Enlarged heterogeneous appearance of the left lobe of the thyroid. Aortic Arch: Normal size and branching pattern. Mild atherosclerotic plaque. Bovine origin of the left internal carotid artery. Brachiocephalic and Subclavians: Unremarkable RIGHT Carotid: Right CCA: Unremarkable. Right ICA: Unremarkable. Right ECA: Unremarkable. LEFT Carotid: Left CCA: Unremarkable. Left ICA: Unremarkable. Left ECA: Unremarkable. Vertebrals: Codominant. Arise from the subclavians. Both vertebrals form the basilar. RIGHT Vertebral: Unremarkable. LEFT Vertebral: Unremarkable. Status post left craniotomy with stable left subdural hematoma and mass effect as compared to prior study done earlier in the day. No intracranial aneurysms or large vascular malformations are identified. Anterior cerebral arteries: Unremarkable. Middle cerebral arteries: Unremarkable. Basilar artery: Unremarkable. Posterior cerebral arteries: Unremarkable. Other major branches of the posterior circulation: Unremarkable. Major venous structures: Unremarkable. Other findings: No lymphadenopathy. Lung apices are clear. Bones are unremarkable. CT/STROKE CTA Head AND Neck W/Con IMPRESSION: RIGHT CAROTID: Unremarkable LEFT CAROTID: Unremarkable VERTEBRALS: Unremarkable INTRACRANIAL: Unremarkable One or more dose reduction techniques were used (e.g., Automated exposure contr ol, adjustment of the mA and/or kV according to patient size, use of iterative reconstruction technique). Reading Location: [place] [id number]
--- NOTE | 2024-07-14 14:09 | ED.VIS.STROK ---
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 This morning for therapy she was leaning to 1 side, slurring her speech abnormally for her, and complaining of a headache and vomiting, they were concerned she was having a stroke so stroke alert was called and she was transferred to the emergency department emergently. The patient states she has headaches every day that is not unusual for her, she states the headache is not as bad now, she states she got up this morning at 3 AM to get a shower she felt like she was wobbly and off balance. However she sat to bathe her self because she is not allowed to get her head wet due to the recent craniectomy. She states she does not remember what time she went to bed last night but she was walking fine yesterday and she is not usually having disequilibrium or trouble with walking, even since her surgery; she states she usually goes to bed around 6:00 PM. [facility] Medical History Personal history of colonic polyps Wears glasses Open wound Migraines Brain bleed Wears dentures Alcohol use Arthritis Anemia Easy bruising Restless legs Back pain Seizures History of GI bleed History of diverticulitis Gastric reflux Former smoker History of stress test History of muscle spasm Leg cramps Duodenal ulcer GI bleed Home Medications ?Medication ?Instructions ?Recorded ?Last Taken ?Type pantoprazole 40 mg tablet,delayed 40 mg PO DAILY GERD 05/09/21 02/05/24 History release (Protonix) cyanocobalamin (vitamin B-12) 1 tab PO DAILY supplement 08/05/23 08/28/23 History potassium gluconate 600 mg (99 mg) 600 mg PO DAILY SUPPLEMENT 08/05/23 08/28/23 History tablet baclofen 10 mg tablet 10 mg PO BID PRN muscle spasm 09/26/23 Unknown History cholecalciferol (vitamin D3) 50 50 mcg PO DAILY supplement 09/26/23 Unknown History mcg (2,000 unit) capsule (Vitamin D3) loratadine 10 mg tablet (Claritin) 10 mg PO DAILY allergies 01/29/24 Unknown History acetaminophen 500 mg capsule 1,000 mg PO Q6H PRN headache 07/03/24 07/08/24 20:45 History ascorbic acid (vitamin C) 500 mg 500 mg PO DAILY supplement 07/03/24 Unknown History tablet mupirocin 2 % topical ointment 1 applic topical BID ointment for 07/03/24 Unknown History incision sennosides 8.6 mg capsule (senna) 17.2 mg PO QHS PRN stool softner 07/03/24 Unknown History ondansetron 4 mg disintegrating 4 mg PO Q8H PRN nausea and vomiting 07/09/24 Unknown History tablet oxycodone 5 mg tablet 2.5 mg PO Q6H PRN pain (scale 07/09/24 Unknown History score 7-10) Allergy/AdvReac Type Severity Reaction Status Date / Time Penicillins Allergy Rash Verified 07/14/24 14:08 prednisone Allergy Rash Verified 07/14/24 14:08 ibuprofen AdvReac Bleeding Verified 07/14/24 14:08 Family History Mother Colon cancer Hx of colectomy Father Colon cancer Aunt Colon cancer Uncle Colon cancer Grandfather Colon cancer Other Heart disease Surgical History History of partial colectomy Hx of cystoscopy History of ERCP History of incisional hernia repair History of common bile duct surgery History of cholecystectomy Hx of colonoscopy Hx of esophagogastroduodenoscopy S/P tubal ligation Status post craniotomy S/P wrist surgery Social History household members: none and other housing: house current occupational status: retired Smoking Status: Former smoker alcohol intake: never substance use type: does not use ROS ROS ED Constitutional Constitutional ED: Denies chills or fever(s) Eyes Eyes: Denies change in vision or diplopia ENT ENT ED: Denies rhinorrhea or sore throat Cardiovascular Cardiovascular: Denies chest pain or palpitations Respiratory/Chest Respiratory/Chest: Denies cough or dyspnea Gastrointestinal Gastrointestinal: Reports nausea and vomiting; Denies abdominal pain or diarrhea Genitourinary Genitourinary ED: Denies dysuria or hematuria Musculoskeletal Musculoskeletal: Denies back pain or neck pain Integumentary Denies abscess or rash Neurologic Neurologic: Reports as per HPI, abnormal speech and headache(s); Denies paresthesias or weakness EXAM Physical Exam Const Vital Signs: 07/14/24 14:00 07/14/24 14:11 07/14/24 14:30 Temperature 98.1 F Temperature Source Oral Pulse Rate 96 83 Respiratory Rate 19 H 16 Blood Pressure 111/56 L 98/47 L Blood Pressure Mean 74 64 Pulse Ox 94 96 Oxygen Delivery Method Room Air Room Air 07/14/24 15:00 07/14/24 15:15 07/14/24 15:16 Temperature Temperature Source Pulse Rate 83 82 Respiratory Rate 22 H 21 H Blood Pressure 115/74 121/53 H Blood Pressure Mean 87 69 Pulse Ox 95 94 Oxygen Delivery Method Room Air 07/14/24 15:45 07/14/24 16:00 Temperature Temperature Source Pulse Rate 78 80 Respiratory Rate 18 14 Blood Pressure 105/56 L 116/60 Blood Pressure Mean 72 78 Pulse Ox 94 97 Oxygen Delivery Method Positive well nourished and well developed General Appearance ED: well developed and NAD HEENT Reports moist mucous membranes HEENT Narrative: Patient is a large left hemicranial defect, surrounded by surgical incision with stainless steel yao intact. There is no sign of infection, discharge, abscess, dehiscence. She has bottom dentures and but no top ones, and her speech is normal considering this. normocephalic and atraumatic Eyes PERRL and EOMs intact bilaterally Neck full ROM and supple Resp normal respiratory effort and clear to auscultation bilaterally Cardio regular rate, regular rhythm and no murmurs GI non-tender and non-distended Auscultation: normoactive bowel sounds Palpation: soft Back/Spine no CVA tenderness General Back: other FROM Extremity normal to inspection General Extremety ED: Negative for edema, pulses abnormal or tenderness General Extremity: Negative for edema or pulses abnormal Neuro oriented x3, CN's II-XII intact bilaterally and no sensory deficits noted Neuro Narrative: Normal speech considering she has half of her teeth in Sensorium / Orientation: awake and alert Motor Exam: strength 5/5 throughout Skin no rashes or lesions noted and no wounds NIHSS NIHSS Initial: 1a Level of Consciousness: 0 1b LOC Questions (Score 2 if aphasic/stupor): 0 1c LOC Commands (Only score 1st attempt): 0 2 Best Gaze (If aphasic, use reflexive mvmts.): 0 3 Visual: 0 4 Facial Palsy: 0 5 Motor Arm Right (UN = amputation/fusion): 0 5 Motor Arm Left: 0 6 Motor Leg Right: 0 6 Motor Leg Left: 0 7 Limb ataxia (Only + if out of proportion): 0 8 Sensory (Aphasia/stupor=0 or 1, coma=2): 0 9 Best Language: 0 10 Dysarthria (mute, coma=2, intubated=UN): 0 11 Extinction and Inattention (only scored if +): 0 Total Score: 0 MDM MDM MDM Narrative Medical decision making narrative: Spoke with the patient's nurse from TCU who was on break when the stroke team was called, she first met the patient this morning and the patient was complaining of some dizziness and a headache this morning when she first met her around 8 AM. Patient woke up at 3 AM to get showered and was symptomatic to the last known well was whenever she went to sleep last night so we are estimating 1800. She is not a candidate for thrombolytics for several reasons including craniectomy, recent intracranial hemorrhage, and timing based on the last known well. CT was obtained emergently, I reviewed the images and the report which I agree with, it shows a new subdural hematoma on the left, the craniectomy side, that is new compared with her last scan on 07/06, 1 week ago, and includes some right midline shift of 14 mm. Given this hemorrhagic order set was placed, and [facility] since [facility] just apparently there, she states she saw Dr. Rodriguez with neurosurgery. I was able to speak with him over the [facility] hospital transfer line. He said if the patient is asymptomatic, then it is less likely an intervention will be indicated, but he would look at the scans. We sent them, he reviewed them and said they were identical to the ones they had, they had many sequential scans showing stability of this subdural. He has additional history saying that the patient had an infected skull plate, so it was removed and she has been on antibiotics that will be continued into August, and at that point she will have another surgery and based on the current scenario where her neurologic symptoms and findings are resolved and her he SDH is stable and no worse than it was before, she does not need to be transferred for neurosurgical reasons. I reviewed her medication list, considering seizure activity as well although she was symptomatic all morning, less likely to be that. She is on no antiepileptics. I spoke with stroke neurology. They advise observing her in the hospital and potentially obtaining a contrasted MRI if possible. They will be consulting. History & Record Review Discussion w/independent historian: Patient Additional record(s) reviewed:: Prior outpatient record (Some TCU documentation) and Prior labs (And CT head) Lab Data Attestation: I reviewed the patient's lab results. Labs: Laboratory Results - last 24 hr 07/14/24 07/14/24 14:23 14:25 WBC 6.9 RBC 3.41 L Hgb 10.1 L Hct 31.8 L MCV 93.3 MCH 29.6 MCHC 31.8 L RDW Std Deviation 47.3 H RDW Coeff of Bria 13.7 Plt Count 133 L MPV 10.2 Immature Gran % (Auto) 0.400 Neut % (Auto) 71.9 H Lymph % (Auto) 17.9 L [place] % (Auto) 7.4 Eos % (Auto) 2.0 Baso % (Auto) 0.4 Absolute Neuts (auto) 4.9 Absolute Lymphs (auto) 1.23 Nucleated RBC % 0 PT 18.0 H INR 1.5 APTT 30.1 Sodium 140 Potassium 3.8 Chloride 105 Carbon Dioxide 28.0 Anion Gap 7 BUN 10 Creatinine 0.48 L Estim Creat Clear Calc 68.74 Est GFR (MDRD) Af Amer 163 Est GFR (MDRD) Non-Af 135 BUN/Creatinine Ratio 20.8 H Glucose 111 H Calcium 8.6 Troponin I High Sens 13 POC Glucose 100 Radiography Diagnostic Testing: Clinical Impression(s) from Imaging Studies Brain CT 07/14/24 14:07 IMPRESSION: 1. New/worsened left subdural hematoma, with increased mass effect and midline shift to the right. 2. Left sphenoid sinus air-fluid level, concerning for acute sinusitis. One or more dose reduction techniques were used (e.g., Automated exposure control, adjustment of the mA and/or kV according to patient size, use of iterative reconstruction technique). Reading Location: [id number] Head/Neck CTA 07/14/24 14:08 IMPRESSION: RIGHT CAROTID: Unremarkable LEFT CAROTID: Unremarkable VERTEBRALS: Unremarkable INTRACRANIAL: Unremarkable One or more dose reduction techniques were used (e.g., Automated exposure control, adjustment of the mA and/or kV according to patient size, use of iterative reconstruction technique). [id number] R[facility] Strip Rhythm Strip: Sinus Rhythm Rate: 80 Ectopy: PVC(s) EKG Initial EKG: Attestation: I personally reviewed and interpreted this EKG as follows: Interpretation: Sinus Rhythm, No Acute Injury Pattern and RBBB Comments: Frequent PVCs. Widened QRS with right bundle branch block, otherwise normal intervals. Management Discussion w/another healthcare provider: [facility]; [facility] stroke neurology Dr. 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
[2024-07-14 14:41] LABS: Bedside Glucose 100 mg/dL (74-106)
[2024-07-14 14:48] LABS: Absolute Lymphocyte Count 1.23 X10^3/uL (0.83-4.51); Absolute Neutrophil Count 4.9 X10^3/uL (2.0-7.7); Basophil# 0.03 X10^3/uL; Basophil% 0.4 % (0-1); Eosinophil# 0.14 X10^3/uL; Hematocrit 31.8 % (37-47); Hemoglobin 10.1 g/dL (12.0-15.0); Lymphocyte # 1.23 X10^3/ul (0.83-4.51); Lymphocyte % 17.9 % (19-41); Mean Corp Hgb Conc 31.8 g/dL (32-36); Mean Corpuscular Hgb 29.6 pg (27.0-32.0); Mean Corpuscular Volume 93.3 fL (81-99); Mean Platelet Vol. 10.2 fl (6.2-12.0); Monocyte# 0.51 X10^3/uL; Monocyte% 7.4 % (0-10); NRBC Flagged by Analyzer 0 % (0-5); Neutrophil # 4.93 X10^3/uL (2.7-7.7); Neutrophil % 71.9 % (47-70); Platelet Count 133 K/mm3 (150-450); RBC Distribution Width CV 13.7 % (11.6-14.6); RBC Distribution Width SD 47.3 fl (35.1-43.9); Red Blood Count 3.41 M/mm3 (4.2-5.4); White Blood Count 6.9 K/mm3 (4.4-11.0)
[2024-07-14 15:00] LABS: International Normalized Ratio 1.5
[2024-07-14 15:06] LABS: Partial Thromboplast Time 30.1 Seconds (24.1-36.2)
[2024-07-14 15:10] LABS: Anion Gap 7 (5-15); BUN 10 mg/dL (7-18); BUN/Creat Ratio 20.8 RATIO (10-20); Calcium,Total 8.6 mg/dL (8.5-10.1); Chloride 105 mmol/L (98-107); Creatinine, Serum 0.48 mg/dL (0.55-1.02); EST Glomerular Filtration Rate 135 mL/min (>60); Est Glom Filt Rate - Afr Amer 163 mL/min (>60); Estimated Creatinine Clearance 68.74 ml/min; Glucose 111 mg/dL (74-106); Potassium 3.8 mmol/L (3.5-5.1); Sodium Level 140 mmol/L (136-145); Troponin-I HS 13 pg/mL (3.0-54.0)
--- NOTE | 2024-07-14 16:22 | CM.ED ---
Social Work Reason for visit: Stroke alert SW met with patient due to stroke alert. Patient in room by herself. Patient stated she was feeling better and wanted to call her sister, but she did not have her phone with her. SW offered to call sister in room with patient, patient denied stating she would call her later. No further needs identified. Roslyn Mcnamara, MEDICAL COMMUNICATION SPECIALIST, AVIATION SAFETY TECHNICIAN
--- NOTE | 2024-07-14 17:03 | MRI_ITS ---
PROCEDURE: BRAIN WITHOUT CONTRAST REASON FOR EXAM: Head bleed. New or worsening subdural. Recent craniotomy. Slurred speech. Headache. TECHNIQUE: Multiplanar, multisequence MRI of the brain was obtained without intravenous gadolinium-based contrast. COMPARISON: 07/14/2024. FINDINGS: There are postsurgical changes from left-sided craniectomy. There are postsurgical changes from right craniotomy. There is redemonstration of a subdural hematoma along the left cerebral convexity involving the left frontal, temporal, parietal, and occipital regions with maximal thickness measuring approximately 10 mm in maximal thickness. There is midline shift to the right by approximately 11 mm to the right. There is mass effect on the left lateral ventricle as well as sulcal effacement involving the left cerebral hemisphere. No diffusion restriction is identified on diffusion-weighted imaging to suggest acute/subacute ischemic changes. Corpus callosum, optic chiasm, suprasellar cistern, and cerebellar tonsils are within normal range. Major vascular flow voids are present. Bilateral orbits are intact. There is a small fluid level within the left sphenoid sinus. MRI/Brain without Contrast IMPRESSION: 1. Redemonstration of a subdural hematoma which is seen along the left cerebral convexity diffusely with maximal thickness measuring 10 mm. There is resultant sulcal effacement with mass effect on the left lateral ventricle as well as midline shift to the right by proximally 11 mm. 2. Postsurgical changes from left-sided craniectomy. 3. No acute/subacute ischemic changes identified. 4. Left sphenoid sinusitis. Reading Location: [place]
--- NOTE | 2024-07-14 17:04 | PCM.HP.STD ---
HPI - General General Date of Admission: 07/14/24 Date of Service: 07/14/24 Chief Complaint: Slurred speech, headache HPI Narrative CARLA HARRISON, is a 74 F who presented to the emergency department at [facility] on 07/14/2024 from the transitional care unit. She has a history of intercerebral hemorrhage and subdural hematoma status post bilateral craniectomy and evacuation. She was at [facility] for this recently and states she continues to have small bleeds that they cannot do anything about clinically. She was discharged to transitional care unit for ongoing therapy. She had been doing fine but this morning evidently started leaning to 1 side, slurring her speech which was atypical for her and complaining of some headache and had an episode of vomiting. Stroke team was called by transitional care unit and she was transferred to the emergency department for further evaluation. Patient reports she has headaches every day and that is not unusual. Headache has improved since it started on the morning of admission. Patient indicated she got up at about 3 AM to get a shower and felt like she was wobbly and off balance. She sat to bathe her self as she is not allowed to get her head wet due to craniotomy and does not remember what time she got to bed but stated she was walking fine yesterday not having any issues with balance. At the time of my evaluation, she was feeling fine and had no symptoms. Vital signs on presentation showed a temperature of 98.1, heart rate 96, respiratory was 19, blood pressure was 111/56, pulse ox was 94% on room air. CBC showed a normal white count with a stable hemoglobin at 10.1. Her platelet count was down slightly to 133,000 (baseline 150,000-200,000). Chemistry panel was unremarkable. Troponin was normal. CT the brain showed new or worsened left subdural hematoma with increased mass effect and midline shift left to right with left sphenoid sinus air-fluid level concerning for acute sinusitis. CTA of the head and neck was unremarkable for any acute findings. The case was discussed by the ER physician by both Neurosurgery at [facility] and [facility] neurology. The neurosurgeon indicated upon review of the imaging that the images appeared to be stable on comparison indicated no surgical intervention was required and felt the patient could be either discharged back to the transitional care unit for monitoring. The neurologist requested that an MRI with and without contrast be performed and she be observed in the hospital overnight. He did feel that if things were stable through the night she could be discharged back to the transitional care unit tomorrow. [facility] Medical History Personal history of colonic polyps Wears glasses Open wound Migraines Brain bleed Wears dentures Alcohol use Arthritis Anemia Easy bruising Restless legs Back pain Seizures History of GI bleed History of diverticulitis Gastric reflux Former smoker History of stress test History of muscle spasm Leg cramps Duodenal ulcer GI bleed Home Medications ?Medication ?Instructions ?Recorded ?Last Taken ?Type pantoprazole 40 mg tablet,delayed 40 mg PO DAILY GERD 05/09/21 02/05/24 History release (Protonix) cyanocobalamin (vitamin B-12) 1 tab PO DAILY supplement 08/05/23 08/28/23 History potassium gluconate 600 mg (99 mg) 600 mg PO DAILY SUPPLEMENT 08/05/23 08/28/23 History tablet baclofen 10 mg tablet 10 mg PO BID PRN muscle spasm 09/26/23 Unknown History cholecalciferol (vitamin D3) 50 50 mcg PO DAILY supplement 09/26/23 Unknown History mcg (2,000 unit) capsule (Vitamin D3) loratadine 10 mg tablet (Claritin) 10 mg PO DAILY allergies 01/29/24 Unknown History acetaminophen 500 mg capsule 1,000 mg PO Q6H PRN headache 07/03/24 07/08/24 20:45 History ascorbic acid (vitamin C) 500 mg 500 mg PO DAILY supplement 07/03/24 Unknown History tablet mupirocin 2 % topical ointment 1 applic topical BID ointment for 07/03/24 Unknown History incision sennosides 8.6 mg capsule (senna) 17.2 mg PO QHS PRN stool softner 07/03/24 Unknown History ondansetron 4 mg disintegrating 4 mg PO Q8H PRN nausea and vomiting 07/09/24 Unknown History tablet oxycodone 5 mg tablet 2.5 mg PO Q6H PRN pain (scale 07/09/24 Unknown History score 7-10) Allergy/AdvReac Type Severity Reaction Status Date / Time Penicillins Allergy Rash Verified 07/14/24 14:08 prednisone Allergy Rash Verified 07/14/24 14:08 ibuprofen AdvReac Bleeding Verified 07/14/24 14:08 Family History Mother Colon cancer Hx of colectomy Father Colon cancer Aunt Colon cancer Uncle Colon cancer Grandfather Colon cancer Other Heart disease Surgical History History of partial colectomy Hx of cystoscopy History of ERCP History of incisional hernia repair History of common bile duct surgery History of cholecystectomy Hx of colonoscopy Hx of esophagogastroduodenoscopy S/P tubal ligation Status post craniotomy S/P wrist surgery Social History (Updated 07/14/24 @ 21:[address] Belle Disla DO) household members: none and other housing: senior care current occupational status: retired Smoking Status: Former smoker alcohol intake: never substance use type: does not use ROS Constitutional Constitutional: Denies anorexia, change in weight, chills, fatigue, fever(s), malaise, night sweats, weakness or other Eyes Eyes: Denies blurry vision, change in eye color, change in vision, discharge from eye(s), double vision, erythema, eye pain, loss of vision or other ENT HEENT: Denies abnormal hearing, dysphagia, ear pain, epistaxis, headache(s), hearing loss, nasal congestion, nasal discharge, post nasal drip, sinus pressure, sore throat or other Cardiovascular Cardiovascular: Denies chest pain, claudication, dyspnea on exertion, edema, lightheadedness, orthopnea, palpitations, paroxysmal nocturnal dyspnea, rapid heart rate, syncope or other Respiratory/Chest Respiratory/Chest: Denies cough, dyspnea, excessive phlegm production, hemoptysis, productive cough, shortness of breath at rest, shortness of breath with exertion, wheezing or other Gastrointestinal Gastrointestinal: Denies abdominal pain, coffee ground emesis, constipation, diarrhea, dyspepsia, hematemesis, hematochezia, loose stools, melena, nausea, vomiting or other Genitourinary Genitourinary: Denies burning urination, difficulty urinating, dysuria, hematuria, nocturia, urinary frequency, urinary hesitancy, urinary incontinence, urinary urgency or other Musculoskeletal Musculoskeletal: Denies arthralgias, back pain, joint pain, joint stiffness, joint swelling, myalgias, neck pain or other Neurologic Neurologic: Reports confusion, focal weakness, headache(s) and numbness; Denies abnormal gait, abnormal speech, disequilibrium, dizziness, paresthesias, seizure-like activity, seizures, syncope, tingling, tremor(s) or other Psychiatric Psychiatric: Denies anxiety, depression, homicidal ideation, suicidal ideation or other Endocrine Endocrinology: Denies change in body appearance, cold intolerance, excessive sweating, heat intolerance, polydipsia, polyuria or other Hematologic/Lymphatic Hematologic/Lymphatic: Denies anemia, easy bleeding, easy bruising, lymphadenopathy or other Allergic/Immunologic Allergic/Immunologic: Denies rhinitis, hives, eczemia, asthma or other Vital Signs Vital Signs Vital Signs: 07/14/24 14:00 07/14/24 14:11 07/14/24 14:30 Temperature 98.1 F Temperature Source Oral Pulse Rate 96 83 Respiratory Rate 19 H 16 Blood Pressure 111/56 L 98/47 L Blood Pressure Mean 74 64 Pulse Ox 94 96 Oxygen Delivery Method Room Air Room Air 07/14/24 15:00 07/14/24 15:15 07/14/24 15:16 Temperature Temperature Source Pulse Rate 83 82 Respiratory Rate 22 H 21 H Blood Pressure 115/74 121/53 H Blood Pressure Mean 87 69 Pulse Ox 95 94 Oxygen Delivery Method Room Air 07/14/24 15:45 07/14/24 16:00 07/14/24 16:15 Temperature Temperature Source Pulse Rate 78 80 87 Respiratory Rate 18 14 18 Blood Pressure 105/56 L 116/60 116/60 Blood Pressure Mean 72 78 78 Pulse Ox 94 97 92 Oxygen Delivery Method 07/14/24 16:30 07/14/24 16:45 07/14/24 16:52 Temperature 97.9 F Temperature Source Pulse Rate 81 80 Respiratory Rate 15 16 Blood Pressure 106/63 102/55 L Blood Pressure Mean 76 70 Pulse Ox 96 94 Oxygen Delivery Method Weight Weight: 81.4 kg Body Mass Index (BMI) 28.0 Physical Exam Const alert, oriented x3, no apparent distress, average body habitus and well nourished Constitutional Narrative: Older, white female, sitting up in bed, appears comfortable, nontoxic, interacts appropriately HEENT normocephalic, hearing grossly normal bilaterally and moist oral mucous membranes; Negative for head/scalp atraumatic HEENT Narrative: Bilateral cranial defects noted left greater than right, helmet in place upon my arrival Eyes PERRL, EOMs intact bilaterally and conjunctivae normal Eyes Narrative: No scleral icterus Neck supple Neck Narrative: Trachea midline, no thyroid enlargement Resp normal respiratory effort, no retractions, no use of accessory muscles and clear to auscultation bilaterally Auscultation: Negative for rales, rhonchi or wheezes Cardio regular rate, regular rhythm, S1 normal heart sound, S2 normal heart sound, no murmurs, no rub, no gallops and no clicks GI normal to inspection, nondistended, normoactive bowel sounds, soft to palpation and non-tender Extremity no clubbing, cyanosis or edema Extremity Narrative: 2+ pedal and radial pulses Neuro oriented x3 and moves all extremities Speech: speech normal Psych Psych Narrative: Very pleasant, interacts appropriately Results Lab / Micro Data 07/14/24 14:25 07/14/24 14:25 Labs: Laboratory Results - last 24 hr 07/14/24 14:23: POC Glucose 100 07/14/24 14:25: WBC 6.9, RBC 3.41 L, Hgb 10.1 L, Hct 31.8 L, MCV 93.3, MCH 29.6, MCHC 31.8 L, RDW Std Deviation 47.3 H, RDW Coeff of Bria 13.7, Plt Count 133 L, MPV 10.2, Immature Gran % (Auto) 0.400, Neut % (Auto) 71.9 H, Lymph % (Auto) 17.9 L, Cochran % (Auto) 7.4, Eos % (Auto) 2.0, Baso % (Auto) 0.4, Absolute Neuts (auto) 4.9, Absolute Lymphs (auto) 1.23, Nucleated RBC % 0, PT 18.0 H, INR 1.5, APTT 30.1, Sodium 140, Potassium 3.8, Chloride 105, Carbon Dioxide 28.0, Anion Gap 7, BUN 10, Creatinine 0.48 L, Estim Creat Clear Calc 68.74, Est GFR (MDRD) Af Amer 163, Est GFR (MDRD) Non-Af 135, BUN/Creatinine Ratio 20.8 H, Glucose 111 H, Calcium 8.6, Troponin I High Sens 13 Rhythm Strip Rhythm Strip: Sinus Rhythm Rate: 80 Ectopy: PVC(s) Imaging Radiology Impression Brain CT 07/14/24 14:07 IMPRESSION: 1. New/worsened left subdural hematoma, with increased mass effect and midline shift to the right. 2. Left sphenoid sinus air-fluid level, concerning for acute sinusitis. One or more dose reduction techniques were used (e.g., Automated exposure control, adjustment of the mA and/or kV according to patient size, use of iterative reconstruction technique). Reading Location: [address] Head/Neck CTA 07/14/24 14:08 IMPRESSION: RIGHT CAROTID: Unremarkable LEFT CAROTID: Unremarkable VERTEBRALS: Unremarkable INTRACRANIAL: Unremarkable One or more dose reduction techniques were used (e.g., Automated exposure control, adjustment of the mA and/or kV according to patient size, use of iterative reconstruction technique). Reading Location: [place] [address] Assessment & Plan Assessment/Plan (1) Dysequilibrium: (2) Dysarthria: (3) Nontraumatic chronic subdural hemorrhage: (4) Thrombocytopenia: PLAN: Plan Altered mental status/disequilibrium/dysarthria with history of nontraumatic intracerebral hemorrhage/subdural hematoma -Symptoms are all resolved -CT and CTA of the head and neck were reviewed -Case was discussed with neurosurgery at [facility] and neurology at [facility] -Neurosurgery reviewed the images and indicated the bleeds were stable when compared to previous imaging they have available from recent hospitalization -Neurology recommended MRI with and without contrast for further clarification and observation admission -Indicated if was stable could be discharged back to transitional care unit on 07/15/2024 -PT/OT consultation -wireless retail manager/social work consultation for assistance with discharge planning -Check MRI with and without contrast -Neurochecks as ordered -Continue home baclofen -Continue home as needed oxycodone -Continue scheduled Tylenol Thrombocytopenia -Platelet count 133,000 -This is relatively new when compared to previous -Only mildly down from baseline of 150-200,000 -Will monitor and repeat lab in a.m. -Could potentially be related to consumption with brain bleed -If continues to drop may need to check coags MRSA infected bone flap s/p craniotomy -Vancomycin IV thru 08/08/2024-->continue at -undergoing decolonization with mupirocin GERD -Continue home Protonix Chronic headaches -Tylenol available -Avoid NSAIDs Chronic anemia -Hemoglobin is relatively stable -Will trend and repeat in a.m. Vitamin D deficiency -Continue scheduled vitamin D replacement Seasonal allergies -Continue scheduled loratadine DVT prophylaxis -Chemoprophylaxis is contraindicated -SCD Code status -Full code Charges/Coding Visit Charges Inpatient E&M: 29221 Init Hosp L2
[2024-07-14] MEDS: Lactated Ringers 1,000 ML 75 ML IV (22:15)
[2024-07-14] MEDS: Mupirocin Ointment 22gm Tube 1 APPLIC TOPICAL (23:14)
[2024-07-14] MEDS: Vancomycin IV 1,000 MG/200 ML BAG 200 MG IV (23:15)
[2024-07-14] MEDS: Acetaminophen 325 MG Tablet 650 MG PO (23:15)
--- NOTE | 2024-07-15 02:23 | PCM.RX.CS ---
Consult Antibiotic Management Pharmacy has been consulted to manage selected antibiotic: Vancomycin Type of Intervention Type of Consult: New start Labs Labs: Sodium 140 mmol/L (136-145) 07/14/24 14:25 Potassium 3.8 mmol/L (3.5-5.1) 07/14/24 14:25 Chloride 105 mmol/L (98-107) 07/14/24 14:25 Carbon Dioxide 28.0 mmol/L (21.0-32.0) 07/14/24 14:25 Anion Gap 7 (5-15) 07/14/24 14:25 BUN 10 mg/dL (7-18) 07/14/24 14:25 Creatinine 0.48 mg/dL (0.55-1.02) L 07/14/24 14:25 Est GFR (MDRD) Af Amer 163 mL/min (>60) 07/14/24 14:25 Est GFR (MDRD) Non-Af 135 mL/min (>60) 07/14/24 14:25 BUN/Creatinine Ratio 20.8 RATIO (10-20) H 07/14/24 14:25 Glucose 111 mg/dL (74-106) H 07/14/24 14:25 Goal Trough Goal Trough: 15-20 mcg/mL Pharmacy Plan for Drug Dosing Pharmacy Plan for Drug Dosing: Pharmacy Service will continue to monitor and adjust dosing as required. PATIENT TRANSFERRED FROM TCU ON 1GM Q12H. CONTINUE AND DRAW TROUGH SCHEDULED IN TCU AT 07/15 @ 2129 Follow-Up Labs Follow-Up Labs: Trough: Vancomycin Date/Time Labs Ordered Labs to be done on [date and time ordered]: 07/15
[2024-07-15 03:58] VITALS: BMI 27.1
[2024-07-15 04:05] LABS: Absolute Lymphocyte Count 1.79 X10^3/uL (0.83-4.51); Absolute Neutrophil Count 3.5 X10^3/uL (2.0-7.7); Basophil# 0.04 X10^3/uL; Basophil% 0.6 % (0-1); Eosinophil# 0.23 X10^3/uL; Eosinophils% 3.7 % (0-5); Hematocrit 31.2 % (37-47); Hemoglobin 10.1 g/dL (12.0-15.0); Lymphocyte # 1.79 X10^3/ul (0.83-4.51); Lymphocyte % 28.5 % (19-41); Mean Corp Hgb Conc 32.4 g/dL (32-36); Mean Corpuscular Hgb 30.2 pg (27.0-32.0); Mean Corpuscular Volume 93.4 fL (81-99); Mean Platelet Vol. 10.4 fl (6.2-12.0); Monocyte# 0.66 X10^3/uL; Monocyte% 10.5 % (0-10); NRBC Flagged by Analyzer 0 % (0-5); Neutrophil # 3.53 X10^3/uL (2.7-7.7); Neutrophil % 56.2 % (47-70); Platelet Count 136 K/mm3 (150-450); RBC Distribution Width CV 13.8 % (11.6-14.6); Red Blood Count 3.34 M/mm3 (4.2-5.4); White Blood Count 6.3 K/mm3 (4.4-11.0)
[2024-07-15 04:44] LABS: AST(SGOT) 19 U/L (15-37); Alanine Aminotransfer ALT/SGPT 20 U/L (13-56); Albumin, Serum 2.7 g/dL (3.2-5.0); Alkaline Phosphatase 62 U/L (45-117); Anion Gap 5 (5-15); BUN 9 mg/dL (7-18); BUN/Creat Ratio 13.3 RATIO (10-20); Calcium,Total 8.3 mg/dL (8.5-10.1); Chloride 105 mmol/L (98-107); Creatinine, Serum 0.68 mg/dL (0.55-1.02); EST Glomerular Filtration Rate 90 mL/min (>60); Est Glom Filt Rate - Afr Amer 109 mL/min (>60); Estimated Creatinine Clearance 67.67 ml/min; Globulin 2.8 g/dL (2.2-4.2); Glucose 91 mg/dL (74-106); Magnesium 1.9 mg/dL (1.6-2.6); Potassium 3.8 mmol/L (3.5-5.1); Protein, Total 5.5 g/dL (6.4-8.2); Sodium Level 140 mmol/L (136-145)
[2024-07-15 05:01] LABS: Phosphorus 4.1 mg/dL (2.5-4.9)
[2024-07-15 07:05] VITALS: O2SAT 92
--- NOTE | 2024-07-15 07:05 | CPS ---
pt refused i.s. & pep, told me not to even open them, did allow me to check her pox.
[2024-07-15 08:15] VITALS: BP 110/64; PULSE 70; RESP 15; TEMP 36.8; O2SAT 95
[2024-07-15] MEDS: Cyanocobalamin 500 MCG Tablet PO (09:39)
[2024-07-15] MEDS: Cholecalciferol (VIT D3) 25 MCG TABLET (1,000 UNITS) 50 MCG PO (09:40)
[2024-07-15] MEDS: Pantoprazole Sodium 40 MG Tablet PO (09:40)
[2024-07-15] MEDS: Loratadine 10 MG Tablet PO (09:40)
[2024-07-15] MEDS: Ascorbic Acid 500 MG Tablet PO (09:40)
[2024-07-15] MEDS: Vancomycin IV 1,000 MG/200 ML BAG 200 MG IV (09:43)
[2024-07-15] MEDS: Mupirocin Ointment 22gm Tube 1 APPLIC TOPICAL (09:43)
[2024-07-15 12:15] VITALS: BP 113/61; PULSE 77; RESP 15; TEMP 36.6; O2SAT 96
--- NOTE | 2024-07-15 13:52 | CON.PCM.NE_ITS ---
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 She was doing well but yesterday complained of CROUCH after therapy and maybe had some slurred speech and gait instability so stroke team was consulted. CTH showed left craniotomy with new SDH and some midline shift which was new from prior image a week ago. Old right craniatomy. CTA unrevealing. MRI brain unrevealing. Labs look okay. Exam nih 0. Patient feels that her slurred speech and gait instability was from CROUCH. Likely presentation is from new SDH collection. - Recommend BP control, repeat imaging appears stable (CTH and MRI-b), no ap or ac until cleared by NSG and NSG consult. Nothing further from stroke standpoint. Stroke to sign off. Please reachout for any questions or concerns. 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 She was doing well but yesterday complained of CROUCH after therapy and maybe had some slurred speech and gait instability so stroke team was consulted. CTH showed left craniotomy with new SDH and some midline shift which was new from prior image a week ago. Old right craniatomy. CTA unrevealing. MRI brain unrevealing. Labs look okay. Exam nih 0. Patient feels that her slurred speech and gait instability was from CROUCH. Likely presentation is from new SDH collection. - Recommend BP control, repeat imaging appears stable (CTH and MRI-b), no ap or ac until cleared by NSG and NSG consult. Nothing further from stroke standpoint. Stroke to sign off. Please reachout for any questions or concerns. [facility] Medical History Personal history of colonic polyps Wears glasses Open wound Migraines Brain bleed Wears dentures Alcohol use Arthritis Anemia Easy bruising Restless legs Back pain Seizures History of GI bleed History of diverticulitis Gastric reflux Former smoker History of stress test History of muscle spasm Leg cramps Duodenal ulcer GI bleed Home Medications ?Medication ?Instructions ?Recorded ?Last Taken ?Type pantoprazole 40 mg tablet,delayed 40 mg PO DAILY GERD 05/09/21 02/05/24 History release (Protonix) cyanocobalamin (vitamin B-12) 1 tab PO DAILY supplemen t 08/05/23 08/28/23 History potassium gluconate 600 mg (99 mg) 600 mg PO DAILY SUP PLEMENT 08/05/23 08/28/23 History tablet baclofen 10 mg tablet 10 mg PO BID PRN muscle spas m 09/26/23 Unknown History cholecalciferol (vitamin D3) 50 50 mcg PO DAILY supple ment 09/26/23 Unknown History mcg (2,000 unit) capsule (Vitamin D3) loratadine 10 mg tablet (Claritin) 10 mg PO DAILY parekr rgies 01/29/24 Unknown History acetaminophen 500 mg capsule 1,000 mg PO Q6H PRN heada mars 07/03/24 07/08/24 20:45 History ascorbic acid (vitamin C) 500 mg 500 mg PO DAILY suppl ement 07/03/24 Unknown History tablet mupirocin 2 % topical ointment 1 applic topical BID oi ntment for 07/03/24 Unknown History incision sennosides 8.6 mg capsule (senna) 17.2 mg PO QHS PRN s tool softner 07/03/24 Unknown History ondansetron 4 mg disintegrating 4 mg PO Q8H PRN nausea and vomiting 07/09/24 Unknown History tablet oxycodone 5 mg tablet 2.5 mg PO Q6H PRN pain (scal e 07/09/24 Unknown History score 7-10) vancomycin 1,000 mg intravenous 1 g IV Q12H 07/14/24 0 07/14/24 History injection Allergy/AdvReac Type Severity Reaction Status Date / Time Penicillins Allergy Rash Verified 07/14/24 14:08 prednisone Allergy Rash Verified 07/14/24 14:08 ibuprofen AdvReac Bleeding Verified 07/14/24 14:08 Family History Mother Colon cancer Hx of colectomy Father Colon cancer Aunt Colon cancer Uncle Colon cancer Grandfather Colon cancer Other Heart disease Surgical History History of partial colectomy Hx of cystoscopy History of ERCP History of incisional hernia repair History of common bile duct surgery History of cholecystectomy Hx of colonoscopy Hx of esophagogastroduodenoscopy S/P tubal ligation Status post craniotomy S/P wrist surgery Social History (Updated 07/14/24 @ 21:[address] Belle Disla DO) household members: none and other housing: [facility] current occupational status: retired Smoking Status: Former smoker alcohol intake: never substance use type: does not use Vital Signs Vital Signs Vital Signs: 07/14/24 14:00 07/14/24 14:11 07/14/24 14:30 Temperature 98.1 F Temperature Source Oral Pulse Rate 96 83 Pulse Strength Respiratory Rate 19 H 16 Respiratory Effort Respiratory Depth Respiratory Pattern Blood Pressure 111/56 L 98/47 L Blood Pressure Mean 74 64 Blood Pressure Source Blood Pressure Position Blood Pressure Location Pulse Ox 94 96 Oxygen Delivery Method Room Air Room Air 07/14/24 15:00 07/14/24 15:15 07/14/24 15:16 Temperature Temperature Source Pulse Rate 83 82 Pulse Strength Respiratory Rate 22 H 21 H Respiratory Effort Respiratory Depth Respiratory Pattern Blood Pressure 115/74 121/53 H Blood Pressure Mean 87 69 Blood Pressure Source Blood Pressure Position Blood Pressure Location Pulse Ox 95 94 Oxygen Delivery Method Room Air 07/14/24 15:45 07/14/24 16:00 07/14/24 16:15 Temperature Temperature Source Pulse Rate 78 80 87 Pulse Strength Respiratory Rate 18 14 18 Respiratory Effort Respiratory Depth Respiratory Pattern Blood Pressure 105/56 L 116/60 116/60 Blood Pressure Mean 72 78 78 Blood Pressure Source Blood Pressure Position Blood Pressure Location Pulse Ox 94 97 92 Oxygen Delivery Method 07/14/24 16:30 07/14/24 16:45 07/14/24 16:52 Temperature 97.9 F Temperature Source Pulse Rate 81 80 Pulse Strength Respiratory Rate 15 16 Respiratory Effort Respiratory Depth Respiratory Pattern Blood Pressure 106/63 102/55 L Blood Pressure Mean 76 70 Blood Pressure Source Blood Pressure Position Blood Pressure Location Pulse Ox 96 94 Oxygen Delivery Method 07/14/24 17:00 07/14/24 17:15 07/14/24 17:42 Temperature Temperature Source Pulse Rate 79 78 82 Pulse Strength Respiratory Rate 15 13 16 Respiratory Effort Respiratory Depth Respiratory Pattern Blood Pressure 100/59 L 100/60 111/68 Blood Pressure Mean 71 72 82 Blood Pressure Source Blood Pressure Position Blood Pressure Location Pulse Ox 91 92 94 Oxygen Delivery Method Room Air 07/14/24 18:23 07/14/24 18:45 07/14/24 20:00 Temperature 98.0 F Temperature Source Oral Pulse Rate 74 77 Pulse Strength Respiratory Rate 18 16 Respiratory Effort Respiratory Depth Respiratory Pattern Blood Pressure 105/54 L 91/44 L 101/44 L Blood Pressure Mean 71 59 63 Blood Pressure Source Monitor Blood Pressure Position Semi-Fowlers Blood Pressure Location Right Arm Pulse Ox 96 92 Oxygen Delivery Method Room Air Room Air 07/14/24 22:00 07/14/24 22:00 07/15/24 04:50 Temperature Temperature Source Pulse Rate Pulse Strength Normal (2+) Respiratory Rate Respiratory Effort Normal Non-Labored Normal Non-Labored Respiratory Depth Normal Normal Respiratory Pattern Normal Normal Blood Pressure Blood Pressure Mean Blood Pressure Source Blood Pressure Position Blood Pressure Location Pulse Ox Oxygen Delivery Method Room Air Room Air 07/15/24 07:05 07/15/24 08:15 07/15/24 08:15 Temperature 98.2 F 98.2 F Temperature Source Temporal Temporal Pulse Rate 70 70 Pulse Strength Respiratory Rate 15 15 Respiratory Effort Respiratory Depth Respiratory Pattern Blood Pressure 110/64 110/64 Blood Pressure Mean 79 79 Blood Pressure Source Monitor Blood Pressure Position Blood Pressure Location Pulse Ox 92 95 95 Oxygen Delivery Method Room Air Room Air Room Air 07/15/24 09:35 07/15/24 12:15 Temperature 97.9 F Temperature Source Temporal Pulse Rate 77 Pulse Strength Respiratory Rate 15 Respiratory Effort Normal Respiratory Depth Normal Respiratory Pattern Normal Blood Pressure 113/61 Blood Pressure Mean 78 Blood Pressure Source Monitor Blood Pressure Position Semi-Fowlers Blood Pressure Location Right Arm Pulse Ox 96 Oxygen Delivery Method Room Air Room Air Weight Weight: 78.7 kg Body Mass Index (BMI) 27.1 NIHSS NIHSS Nursing Documentation NIHSS Nursing Documentation: NIHSS: Hemorrhagic Stroke Start: 07/14/24 20:33 Text: FOR PCU PATIENTS: Status: Active Complete NIH, Neuro check and Glascow coma scale every 4 hours and PRN Protocol: Activity Type Activity Date Activity User E-sign Co-sign Detail Recorded Client Recorded Date Recorded By Document 07/15/24 12:15 ML [id number] 07/15/24 12:41 ML 07/15/24 12:15 NIH Stroke Scale [NIHSS] A score of 0 is normal or asymptomatic . Total possible score is 42. Inpatient: RN or Physician to activate a stroke alert for onset of new stroke symptoms or with NIHSS increase >/= 3 points. Following change in neurological status, NIHSS will be performed per physician order or more frequently PRN. -1a. Level of Consciousness Alert; keenly responsive -1b. LOC Questions Answers BOTH questions correctly. -1c. LOC Commands Performs both tasks correctly . -2. Best Gaze Normal -3. Visual No visual loss -4. Facial Palsy Normal symmetrical movements -5a. Left Arm No drift; arm holds 90 (or 45 ) degrees for full 10 seconds -5b. Right Arm No drift; arm holds 90 (or 45 ) degrees for full 10 seconds -6a. Left Leg No drift; leg holds 30-degree position for full 5 seconds -6b. Right Leg No drift; leg holds 30-degree position for full 5 seconds -7. Limb Ataxia Absent -8. Sensory Normal; no sensory loss -9. Best Language No aphasia; normal -10. Dysarthria Normal -11. Extinction and Inattention No abnormality -Total 0 Query Text:A score of 0 is normal or asymptomatic. Total possible score is 42 . ED: Notify Physician for NIHSS increase by > / = 3 points. Inpatient: RN or Physician to activate a stroke alert for NIHSS increase of > / = 3 points. Coma Scale [Assess] -Eye Opening Spontaneous -Motor Obeys Commands -Verbal Oriented [Total] -Coma Scale Total 15 Physical Exam Narrative Physical Exam: - General: NAD, pleasant, cooperative, well nourished, well developed ? Mental Status: AAOX4 & following simple commands. ? Speech: Clear and fluent with good repetition, comprehension, & naming. No aphasia or dysarthria ? CN II: Visual cummings are full to confrontation. ? CN III, IV, : EOMI, no gaze preference, no nystagmus, no ptosis ? CN V: Facial sensation is intact to light touch throughout. ? CN VII: Face is symmetric with normal eye closure and smile. ? CN VII: Hearing is grossly normal to conversational speech. ? Motor: Able to sustain all limbs ? Sensation: Normal to light touch bilaterally. ? Coordination: Normal FTN & HTS. No abn movements seen. Lab / Micro Data 07/15/24 03:13 07/15/24 03:13 Labs: Laboratory Results - last 24 hr 07/14/24 14:23: POC Glucose 100 07/14/24 14:25: WBC 6.9, RBC 3.41 L, Hgb 10.1 L, Hct 31.8 L, MCV 93.3, MCH 29.6, MCHC 31.8 L, RDW Std Deviation 47.3 H, RDW Coeff of Bria 13.7, Plt Count 133 L, MPV 10.2, Immature Gran % (Auto) 0.400, Neut % (Auto) 71.9 H, Lymph % (Auto) 17.9 L, [place] % (Auto) 7.4, Eos % (Auto) 2.0, Baso % (Auto) 0.4, Absolute Neuts (auto) 4.9, Absolute Lymphs (auto) 1.23, Nucleated RBC % 0, PT 18.0 H, INR 1.5, APTT 30.1, Sodium 140, Potassium 3.8, Chloride 105, Carbon Dioxide 28.0, Anion Gap 7, BUN 10, Creatinine 0.48 L, Estim Creat Clear Calc 68.74, Est GFR (MDRD) Af Amer 163, Est GFR (MDRD) Non-Af 135, BUN/Creatinine Ratio 20.8 H, Glucose 111 H, Calcium 8.6, Troponin I High Sens 13 07/15/24 03:13: WBC 6.3, RBC 3.34 L, Hgb 10.1 L, Hct 31.2 L, MCV 93.4, MCH 30.2, MCHC 32.4, RDW Std Deviation 47.0 H, RDW Coeff of Bria 13.8, Plt Count 136 L, MPV 10.4, Immature Gran % (Auto) 0.500, Neut % (Auto) 56.2, Lymph % (Auto) 28.5, [place] % (Auto) 10.5 H, Eos % (Auto) 3.7, Baso % (Auto) 0.6, Absolute Neuts (auto) 3.5, Absolute Lymphs (auto) 1.79, Nucleated RBC % 0, Sodium 140, Potassium 3.8, Chloride 105, Carbon Dioxide 30.0, Anion Gap 5, BUN 9, Creatinine 0.68, Estim Creat Clear Calc 67.67, Est GFR (MDRD) Af Amer 109, Est GFR (MDRD) Non-Af 90, BUN/Creatinine Ratio 13.3, Glucose 91, Calcium 8.3 L, Phosphorus 4.1, Magnesium 1.9, Total Bilirubin 0.50, AST 19, ALT 20, Alkaline Phosphatase 62, T otal Protein 5.5 L, Albumin 2.7 L, Globulin 2.8, Albumin/Globulin Ratio 1.0 Rhythm Strip Rhythm Strip: Sinus Rhythm Rate: 80 Ectopy: PVC(s) Imaging Radiology Impression Brain CT 07/14/24 14:07 IMPRESSION: 1. New/worsened left subdural hematoma, with increased mass effect and midline shift to the right. 2. Left sphenoid sinus air-fluid level, concerning for acute sinusitis. One or more dose reduction techniques were used (e.g., Automated exposure control, adjustment of the mA and/or kV according to patient size, use of iterative reconstruction technique). Reading Location: [id number] Head/Neck CTA 07/14/24 14:08 IMPRESSION: RIGHT CAROTID: Unremarkable LEFT CAROTID: Unremarkable VERTEBRALS: Unremarkable INTRACRANIAL: Unremarkable One or more dose reduction techniques were used (e.g., Automated exposure control, adjustment of the mA and/or kV according to patient size, use of iterative reconstruction technique). Reading Location: [facility] Brain MRI 07/14/24 17:03 IMPRESSION: 1. Redemonstration of a subdural hematoma which is seen along the left cerebral convexity diffusely with maximal thickness measuring 10 mm. There is resultant sulcal effacement with mass effect on the left lateral ventricle as well as midline shift to the right by proximally 11 mm. 2. Postsurgical changes from left-sided craniectomy. 3. No acute/subacute ischemic changes identified. 4. Left sphenoid sinusitis. Reading Location: [facility] Active Medications Active Medications Active Medications: Current Medications Generic Name Dose Route Start Last Admin Trade Name Freq PRN Reason Stop Dose Admin Acetaminophen 650 mg 07/14/24 20:33 07/14/24 23:15 Acetaminophen 325 Mg Tablet PO 650 mg Q6H PRN PRN Administration Pain 1-10 Or Fever>100.7 Acetaminophen 1,000 mg 07/14/24 21:25 Acetaminophen 500 Mg Tablet PO Q6H PRN PRN headache Albuterol Sulfate 2.5 mg 07/14/24 20:33 Albuterol 2.5 Mg/3 Ml Vial.Neb. INHALATION Q2H PRN PRN SOB &/OR WHEEZING Ascorbic Acid 500 mg 07/15/24 10:00 07/15/24 09:40 Ascorbic Acid 500 Mg Tablet PO 500 mg DAILY JACQUELINE Administration Baclofen 10 mg 07/14/24 21:25 Baclofen 10 Mg Tablet PO BID PRN PRN muscle spasm Cholecalciferol 50 mcg 07/15/24 10:00 07/15/24 09:40 Cholecalciferol (Vit D3) 25 Mcg Tablet (1,000 Units) PO 50 mcg DAILY JACQUELINE Administration Cyanocobalamin 500 mcg 07/15/24 10:00 07/15/24 09:39 Cyanocobalamin 500 Mcg Tablet PO 500 mcg DAILY JACQUELINE Administration Hydralazine HCl 10 - 20 mg 07/14/24 20:33 Hydralazine 20 Mg/Ml Vial IV Q10M PRN to maintain SBP < 140mmHg Sodium Chloride 100 mls @ 15 mls/hr 07/14/24 21:08 IV .Q6H40M PRN Saline Flush Sodium Chloride 100 mls @ 15 mls/hr 07/14/24 21:08 IV .Q6H40M PRN Additional IVPB Infusion Vancomycin HCl 1,000 mg in 200 mls @ 200 mls/hr 07/14/24 22:00 07/15/24 10:45 Vancomycin IV Infused Q12H JACQUELINE Infusion Labetalol HCl 20 mg 07/14/24 20:39 Labetalol 20mg/4ml Syringe IV Q10M PRN maintain SBP < 140mmhg Loratadine 10 mg 07/15/24 10:00 07/15/24 09:40 Loratadine 10 Mg Tablet PO 10 mg DAILY JACQUELINE Administration Mupirocin 1 applic 07/14/24 22:00 07/15/24 09:43 Mupirocin Ointment 22gm Tube TOPICAL 1 applic BID JACQUELINE Administration Protocol Ondansetron HCl 4 mg 07/14/24 20:33 Ondansetron 4 Mg/2 Ml Vial IV Q8H PRN PRN NAUSEA/VOMITING Oxycodone HCl 2.5 mg 07/14/24 21:25 Oxycodone 5 Mg Tablet PO Q6H PRN PRN pain (scale score 7-10) Pantoprazole Sodium 40 mg 07/15/24 10:00 07/15/24 09:40 Pantoprazole Sodium 40 Mg Tablet PO 40 mg DAILY [facility] Administration Senna 2 tablet 07/14/24 22:52 Senna Tablet PO QHS PRN PRN stool softner Senna/Docusate Sodium 2 tablet 07/14/24 20:33 Senna/Docusate Sodium 1 Tablet PO BID PRN PRN Constipation Sodium Chloride 10 - 40 ml 07/14/24 21:08 0.9% Saline Lock 10 Ml Syringe IV UD PRN SALINE FLUSH Vancomycin Protocol 1 lab 07/15/24 19:30 Vancomycin Trough/Random Due 07/15/24 23:30 DAILY [facility]
[2024-07-15 14:07] VITALS: BMI 27.1
--- NOTE | 2024-07-15 14:26 | CASEMGMT ---
Patient came from [facility]. SW confirmed her plan is to return to TCU. Tanya HENRIQUEZ
[2024-07-15 17:00] VITALS: BMI 27.1
--- NOTE | 2024-07-15 19:14 | PCM.TXEXTCAR ---
Diet Diet Order/Speech Therapy: 07/14/24 20:33 Diet: Cardiac - Heart Healthy Food consistency:: Regular Liquid Consistency:: Regular/Thin Routine Orders/Code Status Routine Lab Work: BMP (Twice weekly beginning 07/17/2024) and - (Peak and trough vancomycin level per pharmacy, [facility]) Code Status: Full Code DC O2, CPAP, BIPAP needs Home O2 Discharge instructions: No Wound(s) Left scalp: Wound Type: Surgical Incision Therapies Weight Bearing: Full weight bearing Physical Therapy: Eval and Treat Occupational Therapy: Eval and Treat Problem/Diagnosis (1) Dysequilibrium: Status: Acute Code(s): R42 - Dizziness and giddiness (2) Dysarthria: Status: Acute Code(s): R47.1 - Dysarthria and anarthria (3) Nontraumatic chronic subdural hemorrhage: Status: Acute Code(s): I62.03 - Nontraumatic chronic subdural hemorrhage (4) Thrombocytopenia: Status: Acute Code(s): D69.6 - Thrombocytopenia, unspecified Plan 1. 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 vancomycin #3 status post recent nontraumatic intracerebral hemorrhage/subdural hematoma with debility-PT and OT will continue #4 GERD-patient is on a PPI Allergies/Procedures Done in Hospital Allergies Penicillins Allergy (Verified 07/14/24 14:08) Rash prednisone Allergy (Verified 07/14/24 14:08) Rash ibuprofen Adverse Reaction (Verified 07/14/24 14:08) Bleeding NOT TO TAKE DUE TO PAST BRAIN BLEED Procedures: None Type of Care/Length of Stay Estimated LOS: Convalescent Care Less Than 30 days Type of Care Needed: Skilled Rehab Potential: Good Prognosis: Good Additional Orders/Day of Discharge H&P will serve as current which was dated: 07/14/24 Day of Discharge: 07/15/24 Discharge Plan Admission Admit Date/Time: 07/14/24 16:40 Primary Reason for Your Visit: Dysarthria Attending Provider: Reji Harding Primary Care Provider: Mary Smith Consulting Providers: Twin Conteh; Abilio Faye; Eva Ponce; Dariana Tavarez; Racquel Duckworth; Anson Aguilar; Yanique Banks; Jose C Rhodes; Vitor Anne; Paxton Dickson; Loida Sanderson; Miguel Hector; Monique Lewis; Satnam Locke; Yulisa Gillis; Mak Mann; Nathaniel Mccain; Werner Bradley; Elise Disla; Jorje Mendez; Belle Disla Instructions Additional Instructions / Restrictions: Follow-up with Sayra Honeycutt M.D. on August 07, 2024 at 9 AM, arrive 15 minutes prior to appointment Discharge Orders/Prescriptions Prescriptions: Continued loratadine [Claritin] 10 mg tablet 10 mg PO DAILY pantoprazole [Protonix] 40 MG tablet,delayed release (DR/EC) 40 mg PO DAILY cyanocobalamin (vitamin B-12) 1 tab PO DAILY potassium gluconate 600 mg (99 mg) tablet 600 mg PO DAILY ondansetron 4 mg tablet,disintegrating 4 mg PO Q8H PRN (Reason: nausea and vomiting) Rx Instructions: Can take up to 7 days, 07/16/24 is stop date oxycodone 5 mg tablet 2.5 mg PO Q6H PRN (Reason: pain (scale score 7-10)) Rx Instructions: can take up to 5 days, 07/14/24 cholecalciferol (vitamin D3) [Vitamin D3] 50 mcg (2,000 unit) capsule 50 mcg PO DAILY baclofen 10 mg Tablet 10 mg PO BID PRN (Reason: muscle spasm) acetaminophen 500 mg capsule 1,000 mg PO Q6H PRN (Reason: headache) senna 8.6 mg capsule 17.2 mg PO QHS PRN (Reason: stool softner) mupirocin 2 % ointment 1 applic topical BID ascorbic acid (vitamin C) 500 mg Tablet 500 mg PO DAILY vancomycin 1,000 mg recon soln 1 g IV Q12H Patient Comments: 1000 mg BID through 08/08/2024 Referrals / Follow Up: Mary Smith DO [Primary Care Provider] - Disposition Disposition (needs filled in before D/C Order can be placed): Assisted Facility
--- NOTE | 2024-07-15 19:35 | PCM.DC.SUM ---
Providers Date of Admission: 07/14/24 Date of Discharge: 07/15/24 Primary Care Physician: Dr. Mary Smith, DO Consultations 07/14/24 20:33 Consult: Tele-Neurology Routine Consulting Provider: [facility] Reason for Consult: Non-Hospice Hemorrhagic Stroke EMERGENT Consult: No MD Notified: Yes Date Notified: 07/14/24 Time Notified: 20:56 Method of Notification: Answering Service Nursing Unit Staff Notify [facility] of Tele-Neurology Consult: Yes Reason For Visit: ALTERED MS Diagnosis Discharge Diagnosis (1) Dysequilibrium: Status: Acute Code(s): R42 - Dizziness and giddiness (2) Dysarthria: Status: Acute Code(s): R47.1 - Dysarthria and anarthria (3) Nontraumatic chronic subdural hemorrhage: Status: Acute Code(s): I62.03 - Nontraumatic chronic subdural hemorrhage (4) Thrombocytopenia: Status: Acute Code(s): D69.6 - Thrombocytopenia, unspecified Plan 1. 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 vancomycin #3 status post recent nontraumatic intracerebral hemorrhage/subdural hematoma with debility-PT and OT will continue #4 GERD-patient is on a PPI Medications at Discharge Home Medications pantoprazole 40 mg tablet,delayed release (Protonix) 40 mg PO DAILY GERD 05/09/21 cyanocobalamin (vitamin B-12) 1 tab PO DAILY supplement 08/05/23 potassium gluconate 600 mg (99 mg) tablet 600 mg PO DAILY SUPPLEMENT 08/05/23 baclofen 10 mg tablet 10 mg PO BID PRN muscle spasm 09/26/23 cholecalciferol (vitamin D3) 50 mcg (2,000 unit) capsule (Vitamin D3) 50 mcg PO DAILY supplement 09/26/23 loratadine 10 mg tablet (Claritin) 10 mg PO DAILY allergies 01/29/24 acetaminophen 500 mg capsule 1,000 mg PO Q6H PRN headache 07/03/24 ascorbic acid (vitamin C) 500 mg tablet 500 mg PO DAILY supplement 07/03/24 mupirocin 2 % topical ointment 1 applic topical BID ointment for incision 07/03/24 sennosides 8.6 mg capsule (senna) 17.2 mg PO QHS PRN stool softner 07/03/24 ondansetron 4 mg disintegrating tablet 4 mg PO Q8H PRN nausea and vomiting 07/09/24 oxycodone 5 mg tablet 2.5 mg PO Q6H PRN pain (scale score 7-10) 07/09/24 vancomycin 1,000 mg intravenous injection 1 g IV Q12H Infection 07/14/24 Hospital Course Operations None Procedures None Summary of Care Provided Minutes Spent on Discharge: 32 Hospital Course: This 74-year-old white female was seen in the emergency room at [facility] after being transferred from [facility] due to dysarthria. Patient had been admitted to TCU for rehab services from an outside hospital after undergoing surgery for subdural hematoma and having an infected bone flap removed. A stroke alert was called in the emergency room, there was no evidence of any active pathology on the patient's brain CT, her NIH stroke score was 0. It was recommended that the patient be admitted and undergo an MRI the following day. She was seen in consultation by teleneurology on PCU, teleneurology did not feel that her MRI images had changed from her baseline MRI brain. Patient was seen by PT and OT. On 07/15/2024, patient was seen and examined: On examination she appeared in good health and spirits, she does not appear to be in any distress. Vital signs as documented. Skin warm and dry and without overt rashes. Patient is wearing a protective helmet. Neck without JVD, thyroid appears normal, trachea is midline, neck is supple. Lungs clear, normal air movement was noted. Heart exam notable for regular rhythm, normal sounds and absence of murmurs, rubs or gallops. Abdomen unremarkable and without evidence of organomegaly, masses, or abdominal aortic enlargement, bowel sounds are present in all 4 quadrants, no abdominal tenderness was noted. Extremities nonedematous, no cyanosis was noted, no clubbing was noted. Neuro: Cranial nerves II through XII are grossly intact, no focal motor deficits were noted, sensation to light touch and pinprick is intact, motor exam 5/5 throughout. Psych: Patient is alert and oriented x3, she does not appear anxious or depressed, she does not appear agitated. On 07/15/2024, patient was transferred back to the TCU for further inpatient rehab services in stable condition. Prior to transfer I talked with the attending physician in TCU about the case. Weight / BMI Weight Weight: 78.7 kg Body Mass Index (BMI) 27.1 ABG / Lab / Microbiology Data 07/15/24 03:13 07/15/24 03:13 Laboratory: Laboratory Results - last 24 hr 07/15/24 03:13: WBC 6.3, RBC 3.34 L, Hgb 10.1 L, Hct 31.2 L, MCV 93.4, MCH 30.2, MCHC 32.4, RDW Std Deviation 47.0 H, RDW Coeff of Bria 13.8, Plt Count 136 L, MPV 10.4, Immature Gran % (Auto) 0.500, Neut % (Auto) 56.2, Lymph % (Auto) 28.5, Sweet Grass % (Auto) 10.5 H, Eos % (Auto) 3.7, Baso % (Auto) 0.6, Absolute Neuts (auto) 3.5, Absolute Lymphs (auto) 1.79, Nucleated RBC % 0, Sodium 140, Potassium 3.8, Chloride 105, Carbon Dioxide 30.0, Anion Gap 5, BUN 9, Creatinine 0.68, Estim Creat Clear Calc 67.67, Est GFR (MDRD) Af Amer 109, Est GFR (MDRD) Non-Af 90, BUN/Creatinine Ratio 13.3, Glucose 91, Calcium 8.3 L, Phosphorus 4.1, Magnesium 1.9, Total Bilirubin 0.50, AST 19, ALT 20, Alkaline Phosphatase 62, Total Protein 5.5 L, Albumin 2.7 L, Globulin 2.8, Albumin/Globulin Ratio 1.0 Radiography Diagnostic Testing: Radiology Impression Brain MRI 07/14/24 17:03 IMPRESSION: 1. Redemonstration of a subdural hematoma which is seen along the left cerebral convexity diffusely with maximal thickness measuring 10 mm. There is resultant sulcal effacement with mass effect on the left lateral ventricle as well as midline shift to the right by proximally 11 mm. 2. Postsurgical changes from left-sided craniectomy. 3. No acute/subacute ischemic changes identified. 4. Left sphenoid sinusitis. Reading Location: [facility] D/C Instructions DC O2, CPAP, BIPAP Needs Home O2 Discharge instructions: No Meaningful Use Info Meaningful Use Meaningful Use Diagnoses (Choose all that apply): None applicable Ischemic Stroke Statin Dosing Therapy Reference: STATIN DOSE THERAPY REFERENCE: * Patients > 75 years receive moderate or high dose statin therapy. * Patients 75 years or YOUNGER should receive HIGH intensity statin dose unless contraindicated. You will be required to document reason for non-treatment if statin daily dose does not meet guidelines. HIGH DOSE STATIN THERAPY DAILY Atorvastatin > than or = to 40 mg Rosuvastatin > than or = to 20 mg Amlodipine + Atorvastatin > than or = to 2.5/40 mg Ezetimibe + Simvastatin 10/80 mg Simvastatin 80mg Discharge Plan Admission Admit Date/Time: 07/14/24 16:40 Primary Reason for Your Visit: Dysarthria Attending Provider: Reji Harding Primary Care Provider: Mary Smith Consulting Providers: Twin Conteh; Abilio Faye; Eva Ponce; Dariana Tavarez; Racquel Duckworth; Anson Aguilar; Yanique Banks; Jose C Rhodes; Vitor Anne; Paxton Dickson; Loida Sanderson; Miguel Hector; Monique Lewis; Satnam Locke; Yulisa Gillis; Mak Mann; Nathaniel Mccain; Werner Bradley; Elise Disla; Jorje Mendez; Belle Disla Instructions Additional Instructions / Restrictions: Follow-up with Sayra Honeycutt M.D. on August 07, 2024 at 9 AM, arrive 15 minutes prior to appointment Discharge Orders/Prescriptions Prescriptions: Continued loratadine [Claritin] 10 mg tablet 10 mg PO DAILY pantoprazole [Protonix] 40 MG tablet,delayed release (DR/EC) 40 mg PO DAILY cyanocobalamin (vitamin B-12) 1 tab PO DAILY potassium gluconate 600 mg (99 mg) tablet 600 mg PO DAILY ondansetron 4 mg tablet,disintegrating 4 mg PO Q8H PRN (Reason: nausea and vomiting) Rx Instructions: Can take up to 7 days, 07/16/24 is stop date oxycodone 5 mg tablet 2.5 mg PO Q6H PRN (Reason: pain (scale score 7-10)) Rx Instructions: can take up to 5 days, 07/14/24 cholecalciferol (vitamin D3) [Vitamin D3] 50 mcg (2,000 unit) capsule 50 mcg PO DAILY baclofen 10 mg Tablet 10 mg PO BID PRN (Reason: muscle spasm) acetaminophen 500 mg capsule 1,000 mg PO Q6H PRN (Reason: headache) senna 8.6 mg capsule 17.2 mg PO QHS PRN (Reason: stool softner) mupirocin 2 % ointment 1 applic topical BID ascorbic acid (vitamin C) 500 mg Tablet 500 mg PO DAILY vancomycin 1,000 mg recon soln 1 g IV Q12H Patient Comments: 1000 mg BID through 08/08/2024 Referrals / Follow Up: Mary Smith DO [Primary Care Provider] - Disposition Disposition (needs filled in before D/C Order can be placed): [facility] Charges/Coding Visit Charges Inpatient E&M: 18426 Disch Hosp >30min
[2024-07-15 20:22] VITALS: BP 106/51; PULSE 77; RESP 18; TEMP 35.9; O2SAT 95
--- NOTE | 2024-07-15 20:26 | NURSING ---
Report called to nurse Celia on TCU @ 2009. Nurse states understanding of findings/ POC. Patient understood POC when discharge reviewed with her. Pt. transported back to TCU in wheelchair by PCU CHARGE ENTRY.
== END 2024-07-15 20:18 | disposition skilled nursing facility (03) ==
LOC: ED 16:59 → PCU 19:00
PROVIDERS: Admitting Provider Internal Medicine; Emergency Provider Emergency Medicine; PCP Family Medicine; Visit Provider Internal Medicine
DX: R47.1 Dysarthria and anarthria (principal); I62.03 Nontraumatic chronic subdural hemorrhage; Z87.891 Personal history of nicotine dependence; D69.6 Thrombocytopenia, unspecified; R47.81 Slurred speech; R41.82 Altered mental status, unspecified; K21.9 Gastro-esophageal reflux disease without esophagitis; R42 Dizziness and giddiness; Z79.899 Other long term (current) drug therapy; T86.832 Bone graft infection; Y83.2 Surgical operation with anastomosis, bypass or graft as the cause of abnormal reaction of the patient, or of later complication, without mention of misadventure at the time of the procedure; B95.62 Methicillin resistant Staphylococcus aureus infection as the cause of diseases classified elsewhere; R29.700 NIHSS score 0
CPT/HCPCS: 36415; 36592; 70450; 70496; 70498; 70551; 80048; 80053; 82962; 83735; 84100; 84484; 85025; 85610; 85730; 92610; 93005; 96361; 96365; 96366; 97162; 97166; 99221; 99285; Q9967; A4216; G0378

== ENCOUNTER 2024-07-15 20:25 | Inpatient (IN) | payer MEDICARE, OTHER, SELFPAY ==
[2024-07-15 21:00] VITALS: PULSE 84; RESP 15; O2SAT 98
[2024-07-15 21:06] VITALS: BP 122/49; PULSE 84; RESP 15; TEMP 36.7; O2SAT 98; BMI 27.1
--- NOTE | 2024-07-15 21:14 | HP.PCM_ITS ---
HPI - General General Date of Admission: 07/15/24 Date of Service: 07/16/24 Chief Complaint: Here for rehabilitation, intravenous antibiotics. HPI Narrative CARLA HARRISON, is a 74 Female who presents with followin07/14/2024 [facility] ED TCU resident for infected (MRSA) craniotomy bone flap on intravenous antibiotics with stroke alert. Resident had headache, dysarthria. CT head showed worsening brain bleed with midline shift. [facility] Neurosurgery notes brain bleed unchanged. No transfer recommended. PT/OT. 07/15/2024 Stroke neurology notes dysarthria from new SDH collection. MRI brain negative. 07/15/2024 Admit to TCU with debility, here for rehabilitation, intravenous antibiotics prior to discharge home. [facility] Medical History Personal history of colonic polyps Wears glasses Open wound Migraines Brain bleed Wears dentures Alcohol use Arthritis Anemia Easy bruising Restless legs Back pain Seizures History of GI bleed History of diverticulitis Gastric reflux Former smoker History of stress test History of muscle spasm Leg cramps Duodenal ulcer GI bleed Home Medications ?Medication ?Instructions ?Recorded ?Last Taken ?Type pantoprazole 40 mg tablet,delayed 40 mg PO DAILY GERD 05/09/21 02/05/24 History release (Protonix) cyanocobalamin (vitamin B-12) 1 tab PO DAILY supplemen t 08/05/23 08/28/23 History potassium gluconate 600 mg (99 mg) 600 mg PO DAILY SUP PLEMENT 08/05/23 08/28/23 History tablet baclofen 10 mg tablet 10 mg PO BID PRN muscle spas m 09/26/23 Unknown History cholecalciferol (vitamin D3) 50 50 mcg PO DAILY supple ment 09/26/23 Unknown History mcg (2,000 unit) capsule (Vitamin D3) loratadine 10 mg tablet (Claritin) 10 mg PO DAILY parker rgies 01/29/24 Unknown History acetaminophen 500 mg capsule 1,000 mg PO Q6H PRN heada mars 07/03/24 07/08/24 20:45 History ascorbic acid (vitamin C) 500 mg 500 mg PO DAILY suppl ement 07/03/24 Unknown History tablet mupirocin 2 % topical ointment 1 applic topical BID oi ntment for 07/03/24 Unknown History incision sennosides 8.6 mg capsule (senna) 17.2 mg PO QHS PRN s tool softner 07/03/24 Unknown History ondansetron 4 mg disintegrating 4 mg PO Q8H PRN nausea and vomiting 07/09/24 Unknown History tablet oxycodone 5 mg tablet 2.5 mg PO Q6H PRN pain (scal e 07/09/24 Unknown History score 7-10) vancomycin 1,000 mg intravenous 1 g IV Q12H Infection 07/14/24 07/14/24 History injection Allergy/AdvReac Type Severity Reaction Status Date / Time Penicillins Allergy Rash Verified 07/14/24 14:08 prednisone Allergy Rash Verified 07/14/24 14:08 ibuprofen AdvReac Bleeding Verified 07/14/24 14:08 Family History Mother Colon cancer Hx of colectomy Father Colon cancer Aunt Colon cancer Uncle Colon cancer Grandfather Colon cancer Other Heart disease Surgical History (Updated 07/15/24 @ 21:[address] Gopi Fox MD) History of craniotomy History of partial colectomy Hx of cystoscopy History of ERCP History of incisional hernia repair History of common bile duct surgery History of cholecystectomy Hx of colonoscopy Hx of esophagogastroduodenoscopy S/P tubal ligation Status post craniotomy S/P wrist surgery Social History household members: none and other housing: residential current occupational status: retired Smoking Status: Former smoker alcohol intake: never substance use type: does not use ROS Constitutional Constitutional: Reports weakness; Denies chills, fever(s) or weight gain ENT HEENT: Denies headache(s), nasal congestion or nasal discharge Cardiovascular Cardiovascular: Denies chest pain or palpitations Respiratory/Chest Respiratory/Chest: Denies cough, excessive phlegm production or shortness of breath with exertion Gastrointestinal Gastrointestinal: Denies abdominal pain, nausea or vomiting Genitourinary Genitourinary: Denies dysuria Musculoskeletal Musculoskeletal: Denies joint pain or joint swelling Integumentary Integumentary: Denies rash or wounds Neurologic Neurologic: Denies focal weakness, numbness or tingling Psychiatric Psychiatric: Denies anxiety, auditory hallucinations, depression, homicidal ideation or suicidal ideation Vital Signs Vital Signs Vital Signs: 07/15/24 21:06 Temperature 98.1 F Temperature Source Oral Pulse Rate 84 Respiratory Rate 15 Blood Pressure 122/49 H Blood Pressure Mean 73 Blood Pressure Source Monitor Blood Pressure Position Semi-Fowlers Blood Pressure Location Right Arm Pulse Ox 98 Oxygen Delivery Method Room Air Physical Exam Const alert General Appearance: cooperative HEENT HEENT Narrative: Left craniotomy, sutures intact. Eyes PERRL and EOMs intact bilaterally Neck supple, no JVD and no carotid bruits Resp normal respiratory effort, normal air movement and clear to auscultation bilaterally Cardio regular rate and regular rhythm GI normal to inspection, nondistended, normoactive bowel sounds, non-tender and non-distended Extremity normal capillary refill Extremity Narrative: Left upper extremity PICC line. General Extremity: Negative for edema Skin no rashes or lesions noted General Skin Exam: no breakdown Psych affect normal Appearance: appropriate Results Lab / Micro Data 07/16/24 06:45 07/16/24 06:45 Assessment & Plan Assessment/Plan (1) Debility: (2) Dysarthria: (3) SDH (subdural hematoma): (4) Infection of cranial bone flap: (5) MRSA (methicillin resistant Staphylococcus aureus) infection: (6) GERD (gastroesophageal reflux disease): PLAN: Plan 74 year old female with below past medical history hospitalized for dysarthria, 2/2 new subdural hematoma collection, admitted to TCU with debility, here for rehabilitation, intravenous antibiotics, prior to discharge home alone. * Debility - PT/OT. * Pain - Tylenol 1000mg q6 prn headache, Oxycodone 2.5mg q6 prn pain (7-10). * Bowel - senna/colace 1 tablet bid prn. * Adult immunization - Administer pneumonia vaccine, covid vaccine, flu vaccine as appropriate. * DVT prophylaxis - contraindicated 2/2 spontaneous brain bleeds. * Nausea - Zofran 4mg q8 prn. * GERD - Pantoprazole 40mg daily. * MRSA decolonization - Mupirocin topical bilateral nares bid. * MRSA bone flap infection - Vancomycin 1000mg iv q12 thru 08/08/2024.
--- NOTE | 2024-07-15 22:29 | NURSING ---
Spoke with Manuel from pharmacy regarding Vancomycin trough. Due to today's dose being late, he will put in trough to be drawn tomorrow morning and said it is OK to administer roland, 07/15/24. This order was read back and verified.
[2024-07-15] MEDS: 0.9% Saline Lock 10 ML Syringe IV (22:40)
[2024-07-15] MEDS: Vancomycin IV 1,000 MG/200 ML BAG 200 MG IV (22:43)
[2024-07-15] MEDS: 0.9% Normal Saline (100mL Bag) 100 ML 15 ML IV (22:46)
--- NOTE | 2024-07-15 23:10 | PCM.RX.CS ---
Consult Antibiotic Management Pharmacy has been consulted to manage selected antibiotic: Vancomycin Type of Intervention Type of Consult: Follow-up Goal Trough Goal Trough: 15-20 mcg/mL Pharmacy Plan for Drug Dosing Pharmacy Plan for Drug Dosing: Pharmacy Service will continue to monitor and adjust dosing as required. PATIENT BACK IN TCU FROM SHORT 1 DAY TRIP TO PCU. CONTINUE 1GM Q12H AND DRAW TROUGH PRIOR TO NEXT DOSE 07/15 @ 0930 Follow-Up Labs Follow-Up Labs: Trough: Vancomycin Date/Time Labs Ordered Labs to be done on [date and time ordered]: 07/13 @ 0930
[2024-07-16] MEDS: 0.9% Saline Lock 10 ML Syringe IV ×2 (06:38→15:22)
[2024-07-16 07:11] LABS: Absolute Lymphocyte Count 1.57 X10^3/uL (0.83-4.51); Absolute Neutrophil Count 5.1 X10^3/uL (2.0-7.7); Basophil# 0.03 X10^3/uL; Basophil% 0.4 % (0-1); Eosinophil# 0.19 X10^3/uL; Eosinophils% 2.5 % (0-5); Hematocrit 36.5 % (37-47); Hemoglobin 11.7 g/dL (12.0-15.0); Lymphocyte # 1.57 X10^3/ul (0.83-4.51); Lymphocyte % 20.7 % (19-41); Mean Corp Hgb Conc 32.1 g/dL (32-36); Mean Corpuscular Hgb 29.8 pg (27.0-32.0); Mean Corpuscular Volume 92.9 fL (81-99); Mean Platelet Vol. 10.2 fl (6.2-12.0); Monocyte# 0.68 X10^3/uL; NRBC Flagged by Analyzer 0 % (0-5); Neutrophil # 5.08 X10^3/uL (2.7-7.7); Platelet Count 170 K/mm3 (150-450); RBC Distribution Width CV 13.6 % (11.6-14.6); RBC Distribution Width SD 46.5 fl (35.1-43.9); Red Blood Count 3.93 M/mm3 (4.2-5.4); White Blood Count 7.6 K/mm3 (4.4-11.0)
[2024-07-16 07:32] LABS: Anion Gap 5 (5-15); BUN 10 mg/dL (7-18); BUN/Creat Ratio 14.9 RATIO (10-20); Calcium,Total 9.2 mg/dL (8.5-10.1); Chloride 106 mmol/L (98-107); Creatinine, Serum 0.67 mg/dL (0.55-1.02); EST Glomerular Filtration Rate 91 mL/min (>60); Est Glom Filt Rate - Afr Amer 111 mL/min (>60); Estimated Creatinine Clearance 67.58 ml/min; Glucose 112 mg/dL (74-106); Potassium 4.2 mmol/L (3.5-5.1); Sodium Level 141 mmol/L (136-145)
--- NOTE | 2024-07-16 08:11 | CASEMGMT ---
Social Work Patient's second readmission to TCU. See previous visits for assessment. No changes. Pt is on day of Medicare benefit. Pt remains on IV ATB through 08/07. SW will follow for DC planning and support. Sandy Kenny COST CONSULTANT CASING FLUSHER
[2024-07-16] MEDS: Acetaminophen 500 MG Tablet 1000 MG PO ×2 (08:50→19:53)
[2024-07-16] MEDS: Mupirocin Ointment 22gm Tube 1 APPLIC TOPICAL ×2 (08:51→19:54)
[2024-07-16] MEDS: Pantoprazole Sodium 40 MG Tablet PO (08:52)
[2024-07-16 08:58] VITALS: BP 120/71; PULSE 84; RESP 16; TEMP 36.4; O2SAT 96
--- NOTE | 2024-07-16 09:58 | NURSING ---
Addendum entered by Susana Bearden 07/16/24 10:27: Resident left floor at 0930 for appt. Original Note: Called and spoke with Michael in pharmacy about missed vanc trough and vanc dose d/t resident being out to an appointment. He asked for nursing to call when resident gets back and then pharmacist can decide how to reschedule trough and dose.
[2024-07-16] MEDS: Tuberculin,Purif.prot.deriv. 50 TU/ML Vial 0.1 ML ID (13:44)
--- NOTE | 2024-07-16 13:51 | NURSING ---
pt returned to unit from appt at 1330
--- NOTE | 2024-07-16 13:58 | CASEMGMT ---
Social Work IDT met with patient, dtr and CAROL for care plan meeting. Discussed patient's progress in PT/OT/ST/SN. Educated to Medicare benefit and copay coverage. Pt admitted on day of Medicare. Pt's goal is to return home alone. Pt is on IV ATB through 08/08. Family has no concerns outside completing a flight of steps. SW will continue to follow for DC planning. Sandy Kenny HUMAN RESOURCE STATISTICIAN NEWSPAPER CORRESPONDENT
[2024-07-16 14:47] LABS: Vancomycin, Trough Level 17.6 ug/mL (5.0-15.0)
[2024-07-16] MEDS: Vancomycin IV 1,000 MG/200 ML BAG 200 MG IV (15:21)
[2024-07-16] MEDS: oxyCODONE 5 MG Tablet 2.5 MG PO (15:29)
[2024-07-16] MEDS: Nystatin Powder 15gm Bottle 1 APPLIC TOPICAL (19:58)
[2024-07-17 02:51] LABS: Vancomycin, Trough Level 19.6 ug/mL (5.0-15.0)
--- NOTE | 2024-07-17 02:59 | PCM.RX.CS ---
Consult Antibiotic Management Pharmacy has been consulted to manage selected antibiotic: Vancomycin Type of Intervention Type of Consult: Follow-up Labs Labs: Sodium 141 mmol/L (136-145) 07/16/24 06:45 Potassium 4.2 mmol/L (3.5-5.1) 07/16/24 06:45 Chloride 106 mmol/L (98-107) 07/16/24 06:45 Carbon Dioxide 30.0 mmol/L (21.0-32.0) 07/16/24 06:45 Anion Gap 5 (5-15) 07/16/24 06:45 BUN 10 mg/dL (7-18) 07/16/24 06:45 Creatinine 0.67 mg/dL (0.55-1.02) 07/16/24 06:45 Est GFR (MDRD) Af Amer 111 mL/min (>60) 07/16/24 06:45 Est GFR (MDRD) Non-Af 91 mL/min (>60) 07/16/24 06:45 BUN/Creatinine Ratio 14.9 RATIO (10-20) 07/16/24 06:45 Glucose 112 mg/dL (74-106) H 07/16/24 06:45 Vancomycin Trough 19.6 ug/mL (5.0-15.0) H 07/17/24 02:30 Microbiology Microbiology: Microbiology 07/16/24 06:09 Nasal Secretion SARS-CoV-2 Antigen (Rapid) - Final Dosing Weight Weight used for dosin kg Estimated Creatinine Clearance Estimated Creatinine Clearance: 68 Goal Trough Goal Trough: 15-20 mcg/mL Pharmacy Plan for Drug Dosing Pharmacy Plan for Drug Dosing: Vancomycin trough level of 19.6, drawn 11hrs post-dose, was within the target range of 15-20. Will continue dosing at 1000mg q12h, and will draw another trough level in two days. Pharmacy Service will continue to monitor and adjust dosing as required. Follow-Up Labs Follow-Up Labs: Trough: Vancomycin Date/Time Labs Ordered Labs to be done on [date and time ordered]: 07/19/24 @0231
[2024-07-17] MEDS: Vancomycin IV 1,000 MG/200 ML BAG 200 MG IV ×2 (03:02→15:02)
[2024-07-17] MEDS: Pantoprazole Sodium 40 MG Tablet PO (11:20)
[2024-07-17] MEDS: Mupirocin Ointment 22gm Tube 1 APPLIC TOPICAL ×2 (11:20→19:39)
[2024-07-17] MEDS: Nystatin Powder 15gm Bottle 1 APPLIC TOPICAL ×2 (11:22→19:41)
[2024-07-17] MEDS: 0.9% Saline Lock 10 ML Syringe IV (15:03)
[2024-07-17] MEDS: 0.9% Normal Saline (100mL Bag) 100 ML 15 ML IV (15:06)
--- NOTE | 2024-07-17 15:10 | PCM.PN.DRR ---
TCU RX Drug Regimen Review Subjective/Objective Subjective/Objective Subjective: 74 YOF re-admitted to TCU on 07/15/24. Previously on TCU for treatment of MRSA craniotomy bone flap infection. Was taken to ED on 07/14 d/t concerns for stroke. Head CT done showing worsening brain bleed with midline shift, which prompted notification of neurosurgery at [facility]. Per [facility], no change in brain bleed. Readmitted to TCU on 07/15/24 for continuation of IV antibiotics, strengthening, and rehabilitation prior to discharge home alone. Objective: Allergies Penicillins Allergy (Verified 07/14/24 14:08) Rash prednisone Allergy (Verified 07/14/24 14:08) Rash ibuprofen Adverse Reaction (Verified 07/14/24 14:08) Bleeding NOT TO TAKE DUE TO PAST BRAIN BLEED Current Medications Generic Name Dose Route Start Last Admin Trade Name Freq PRN Reason Stop Dose Admin Acetaminophen 1,000 mg 07/15/24 20:49 07/16/24 19:53 Acetaminophen 500 Mg Tablet PO 1,000 mg Q6H PRN PRN Administration headache Sodium Chloride 100 mls @ 15 mls/hr 07/15/24 20:53 07/17/24 15:06 IV 15 mls/hr .Q6H40M PRN Administration Saline Flush Sodium Chloride 100 mls @ 15 mls/hr 07/15/24 20:53 07/17/24 06:27 IV Infused .Q6H40M PRN Infusion Additional IVPB Infusion Vancomycin IV-PHARMACY TO DOSE 500 mls @ 250 mls/hr 07/15/24 23:12 1 each/ Sodium Chloride IV X1 PRN Rx to Dose Protocol Vancomycin HCl 1,000 mg in 200 mls @ 200 mls/hr 07/16/24 15:00 07/17/24 15:02 Vancomycin IV 08/08/24 23:59 200 mls/hr Q12H JACQUELINE Administration Mupirocin 1 applic 07/15/24 22:00 07/17/24 11:20 Mupirocin Ointment 22gm Tube TOPICAL 1 applic BID JACQUELINE Administration Protocol Nystatin 1 applic 07/16/24 10:00 07/17/24 11:22 Nystatin Powder 15gm Bottle TOPICAL 1 applic BID JACQUELINE Administration Protocol Ondansetron HCl 4 mg 07/15/24 20:49 Ondansetron Odt 4 Mg Tablet PO Q8H PRN PRN nausea and vomiting Oxycodone HCl 2.5 mg 07/15/24 20:49 07/16/24 15:29 Oxycodone 5 Mg Tablet PO 2.5 mg Q6H PRN PRN Administration pain (scale score 7-10) Pantoprazole Sodium 40 mg 07/16/24 10:00 07/17/24 11:20 Pantoprazole Sodium 40 Mg Tablet PO 40 mg DAILY JACQUELINE Administration Senna/Docusate Sodium 1 tablet 07/15/24 21:22 Senna/Docusate Sodium 1 Tablet PO BID PRN PRN Constipation Sodium Chloride 10 - 40 ml 07/15/24 20:53 07/17/24 15:03 0.9% Saline Lock 10 Ml Syringe IV 10 ml UD PRN Administration Open End PICC Flush Sodium Chloride 10 - 40 ml 07/15/24 20:53 0.9 % Nacl (Sterile) Posiflush 10 Ml IV UD PRN Port access or dressing change Tuberculin PPD 0.1 ml 07/23/24 10:00 Tuberculin,Purif.Prot.Deriv. 50 Tu/Ml Vial ID 07/23/24 10:01 X1 ONE Vancomycin Protocol 1 lab 07/19/24 00:30 Vancomycin Trough/Random Due [facility] 07/19/24 04:30 DAILY [facility] Problem List Dysarthria (Acute) MRSA (methicillin resistant Staphylococcus aureus) infection (Acute) GERD (gastroesophageal reflux disease) (Acute) Infection of cranial bone flap (Acute) SDH (subdural hematoma) (Acute) Debility (Acute) Vital Signs Temp Pulse Resp BP Pulse Ox O2 Del Method 97.6 F L 84 16 120/71 96 Room Air 07/16/24 08:58 07/16/24 08:58 07/16/24 08:58 07/16/24 08:58 07/16/24 08:58 07/16/24 10:00 Oxygen Delivery Method Room Air Weight: 77.111 kg Body Mass Index (BMI) 27.1 Sodium 141 mmol/L (136-145) 07/16/24 06:45 Potassium 4.2 mmol/L (3.5-5.1) 07/16/24 06:45 Chloride 106 mmol/L (98-107) 07/16/24 06:45 Carbon Dioxide 30.0 mmol/L (21.0-32.0) 07/16/24 06:45 Anion Gap 5 (5-15) 07/16/24 06:45 BUN 10 mg/dL (7-18) 07/16/24 06:45 Creatinine 0.67 mg/dL (0.55-1.02) 07/16/24 06:45 Est GFR (MDRD) Af Amer 111 mL/min (>60) 07/16/24 06:45 Est GFR (MDRD) Non-Af 91 mL/min (>60) 07/16/24 06:45 BUN/Creatinine Ratio 14.9 RATIO (10-20) 07/16/24 06:45 Glucose 112 mg/dL (74-106) H 07/16/24 06:45 Vancomycin Trough 19.6 ug/mL (5.0-15.0) H 07/17/24 02:30 Assessment/Plan: 1. Pain: Tylenol 1000mg PO Q6h PRN Headache, Oxycodone 2.5mg PO Q6h PRN Pain 7-10. Please continue to monitor for increased/decreased S/S pain, PRN medication usage, oversedation/respiratory depression/constipation with narcotic usage. - To date, the patient has required 2 doses of PRN Tylenol for complaints of headache rated 4-10/10 with pain reassessment rated 0/10. The patient has also utilized one dose of Oxycodone since admission for pain rated 7/10 with pain reassessment rated 0/10. Patient's pain appears managed at this time with current regimen. 2. MRSA bone flap infection: Vancomycin 1000mg IV Q12hr thru 08/08/24. Vancomycin currently being managed by pharmacy services. Next trough scheduled for 07/19/24. Since 07/05/24, the patient has had therapeutic cancomycin troughs all within goal range (goal 15-20). Pharmacy will continue to monitor renal function, troughs as clinically indicated. 3. MRSA decolonization: Bactroban nasally BID. 4. Nausea: Zofran 4mg PO Q8h PRN. Please continue to monitor for nausea/vomiting, headache, PRN usage. -To date, the patient has not required any PRN doses of medication. 5. GERD: Protonix 40mg PO Daily. Please continue to monitor for S/S GERD flare-up, bloating, stomach upset. Please also encourage non-pharmacologic treatments to help minimize GERD exacerbations, also. 6. Skin Integrity: Nystatin topically BID. Please continue to monitor for skin rash/redness/irritation. 7. Bowel: Senna/Docusate 1 tab PO BID PRN. Please continue to monitor for increased/decreased constipation and/or diarrhea. - To date, the patient has not had any documented bowel movements. If patient does not have a documented bowel movement in the next 24-48hrs, please consider administering PRN Senna-S to help facilitate a bowel movement. Assessment/Plan for indications treated with psychotropic medications: -The patient is not currently on any psychotropic medications at the time of medication list review. Medical chart and medication regimen reviewed. The following medication irregularities or issues were identified: -No irregularities were identified at time of medication list review. Date Date of Note: 07/17/24
[2024-07-17 15:26] VITALS: BP 96/53; PULSE 75; RESP 14; TEMP 36.3; O2SAT 97
[2024-07-17] MEDS: Acetaminophen 500 MG Tablet 1000 MG PO (17:05)
[2024-07-17] MEDS: oxyCODONE 5 MG Tablet 2.5 MG PO (17:09)
[2024-07-18] MEDS: Vancomycin IV 1,000 MG/200 ML BAG 200 MG IV ×2 (02:32→14:27)
[2024-07-18] MEDS: Acetaminophen 500 MG Tablet 1000 MG PO ×2 (06:31→12:38)
[2024-07-18 10:12] VITALS: BP 116/66; PULSE 67; RESP 14; TEMP 36.7; O2SAT 97
[2024-07-18] MEDS: Pantoprazole Sodium 40 MG Tablet PO (10:15)
[2024-07-18] MEDS: Mupirocin Ointment 22gm Tube 1 APPLIC TOPICAL ×2 (10:15→20:19)
[2024-07-18] MEDS: Nystatin Powder 15gm Bottle 1 APPLIC TOPICAL ×2 (10:16→20:20)
--- NOTE | 2024-07-18 13:45 | NURSING ---
Noted by PILATES INSTRUCTOR and PT that resident self transferring and has been reminded repeatedly to call for assistance with transfers. This RN discussed concern for fall/injury as she's had a loss of balance today with therapy. Let her know staff would like to put an alarm on her chair for safety. She declined alarm multiple times, assures this nurse that she will call for assistance.
[2024-07-18] MEDS: 0.9% Saline Lock 10 ML Syringe IV (14:27)
[2024-07-19] MEDS: 0.9% Saline Lock 10 ML Syringe IV ×3 (02:24→16:09)
[2024-07-19] MEDS: Vancomycin Trough/Random Due 1 LAB MC ×2 (02:42→14:18)
[2024-07-19 03:05] LABS: Vancomycin, Trough Level 23.5 ug/mL (5.0-15.0)
--- NOTE | 2024-07-19 03:19 | PCM.RX.CS ---
Consult Antibiotic Management Pharmacy has been consulted to manage selected antibiotic: Vancomycin Type of Intervention Type of Consult: Follow-up Labs Labs: Sodium 141 mmol/L (136-145) 07/16/24 06:45 Potassium 4.2 mmol/L (3.5-5.1) 07/16/24 06:45 Chloride 106 mmol/L (98-107) 07/16/24 06:45 Carbon Dioxide 30.0 mmol/L (21.0-32.0) 07/16/24 06:45 Anion Gap 5 (5-15) 07/16/24 06:45 BUN 10 mg/dL (7-18) 07/16/24 06:45 Creatinine 0.67 mg/dL (0.55-1.02) 07/16/24 06:45 Est GFR (MDRD) Af Amer 111 mL/min (>60) 07/16/24 06:45 Est GFR (MDRD) Non-Af 91 mL/min (>60) 07/16/24 06:45 BUN/Creatinine Ratio 14.9 RATIO (10-20) 07/16/24 06:45 Glucose 112 mg/dL (74-106) H 07/16/24 06:45 Vancomycin Trough 23.5 ug/mL (5.0-15.0) H 07/19/24 02:30 Microbiology Microbiology: Microbiology 07/16/24 06:09 Nasal Secretion SARS-CoV-2 Antigen (Rapid) - Final Dosing Weight Weight used for dosin kg Estimated Creatinine Clearance Estimated Creatinine Clearance: 68 Goal Trough Goal Trough: 15-20 mcg/mL Pharmacy Plan for Drug Dosing Pharmacy Plan for Drug Dosing: Vancomycin trough level was high at 23.5. This was drawn 12 hours post-dose. Current dosing will be suspended and a random vanco level will be drawn in 12 hours to determine further orders. Pharmacy Service will continue to monitor and adjust dosing as required. Follow-Up Labs Follow-Up Labs: Trough: Vancomycin (random) Date/Time Labs Ordered Labs to be done on [date and time ordered]: 07/19/24 @1430 (random)
--- NOTE | 2024-07-19 05:23 | NURSING ---
Patient continues to be non-compliant with staff assist with transfers at times despite education and encouragement to utilize call light for staff assist to promote safety and decrease fall risk. Impulsive at times, becomes agitated at times when staff attempts to assist patient when observed ambulating in room, patient does not want alarms and would contribute to agitation. Reinforcement needed with call light education. Patient verbalizes understanding corrections nurse light use at this time. Denies requests. Call light and personal items in reach. Written communication left for Dr. Fox regarding impulsivity/non-compliance with staff assist and refusal of alarms. Seizure precautions continue per order, no seizure activity observed or reported.
[2024-07-19 09:31] VITALS: PULSE 78; TEMP 36.8; O2SAT 96
[2024-07-19] MEDS: Mupirocin Ointment 22gm Tube 1 APPLIC TOPICAL ×2 (09:40→20:03)
[2024-07-19] MEDS: Nystatin Powder 15gm Bottle 1 APPLIC TOPICAL ×2 (09:41→20:08)
[2024-07-19] MEDS: Pantoprazole Sodium 40 MG Tablet PO (09:41)
[2024-07-19] MEDS: Acetaminophen 500 MG Tablet 1000 MG PO ×2 (09:42→18:44)
--- NOTE | 2024-07-19 11:44 | PCA ---
Observed patient ambulating in hallway with rollator unassisted by staff. Asked patient why she did not use her call light to call staff for assistance. Patient states, I wanted to go for a walk. This DOCKMASTER reminded patient to use her call light to call staff for assistance. Assisted patient back to her room where she was resting comfortably in her chair. Reported incident to patient's RN.
[2024-07-19 15:11] LABS: Vancomycin, Random Level 16.6 ug/mL (0.0-15.0)
--- NOTE | 2024-07-19 15:49 | PCM.RX.CS ---
Consult Antibiotic Management Pharmacy has been consulted to manage selected antibiotic: Vancomycin Type of Intervention Type of Consult: Follow-up Labs Labs: Sodium 141 mmol/L (136-145) 07/16/24 06:45 Potassium 4.2 mmol/L (3.5-5.1) 07/16/24 06:45 Chloride 106 mmol/L (98-107) 07/16/24 06:45 Carbon Dioxide 30.0 mmol/L (21.0-32.0) 07/16/24 06:45 Anion Gap 5 (5-15) 07/16/24 06:45 BUN 10 mg/dL (7-18) 07/16/24 06:45 Creatinine 0.67 mg/dL (0.55-1.02) 07/16/24 06:45 Est GFR (MDRD) Af Amer 111 mL/min (>60) 07/16/24 06:45 Est GFR (MDRD) Non-Af 91 mL/min (>60) 07/16/24 06:45 BUN/Creatinine Ratio 14.9 RATIO (10-20) 07/16/24 06:45 Glucose 112 mg/dL (74-106) H 07/16/24 06:45 Vancomycin Trough 23.5 ug/mL (5.0-15.0) H 07/19/24 02:30 Random Vancomycin 16.6 ug/mL (0.0-15.0) H 07/19/24 14:25 Microbiology Microbiology: Microbiology 07/16/24 06:09 Nasal Secretion SARS-CoV-2 Antigen (Rapid) - Final Dosing Weight Weight used for dosin.5 kg Pharmacy Plan for Drug Dosing Pharmacy Plan for Drug Dosing: VANCOMYCIN LEVEL RECEIVED Current Vancomycin Dose: 1000 Q12H Number of Doses Received: 5 Vancomycin Level: 16.6 Hours Since Last Dose: 24 Renal Function: SCr 0.67 mg/dL Renal Function Trend: Stable/ WEEKLY MEASURE Lab/Micro: Vancomycin Plan/Comments: Last dose held due to trough at 23.5; Random at 24hr is 16.6 which is within therapeutic level; given that the patient has been stable in dose ;Restarting 1000mg q12h, and will continue to monitor Pending Level: 07/21/2024 0300Pharmacy Service will continue to monitor and adjust dosing as required. Follow-Up Labs Follow-Up Labs: Trough: Vancomycin
[2024-07-19] MEDS: Vancomycin IV 1,000 MG/200 ML BAG 200 MG IV (16:09)
[2024-07-20] MEDS: Vancomycin IV 1,000 MG/200 ML BAG 200 MG IV ×2 (03:13→16:58)
[2024-07-20] MEDS: oxyCODONE 5 MG Tablet 2.5 MG PO ×2 (06:26→13:30)
[2024-07-20 09:00] VITALS: BP 120/75; PULSE 68; RESP 18; TEMP 37.1; O2SAT 93
[2024-07-20] MEDS: Acetaminophen 500 MG Tablet 1000 MG PO (09:06)
[2024-07-20] MEDS: Mupirocin Ointment 22gm Tube 1 APPLIC TOPICAL ×2 (09:06→23:00)
[2024-07-20] MEDS: Pantoprazole Sodium 40 MG Tablet PO (09:06)
[2024-07-20] MEDS: Nystatin Powder 15gm Bottle 1 APPLIC TOPICAL ×2 (09:10→23:00)
[2024-07-20] MEDS: 0.9% Saline Lock 10 ML Syringe IV (16:58)
[2024-07-21 03:40] LABS: Vancomycin, Trough Level 21.6 ug/mL (5.0-15.0)
--- NOTE | 2024-07-21 03:40 | NURSING ---
Patient continues to self transfer throughout the night despite education on the increased risk for falls and promoting patient safety. Patient refusing alarms. Patient can be agitated at times with staff regarding call light use. Patient educated web content writer light use, returned demonstration. Patient still self transferring. Written communication to Dr. Fox for review.
[2024-07-21] MEDS: Vancomycin IV 1,000 MG/200 ML BAG 200 MG IV ×2 (03:55→16:49)
--- NOTE | 2024-07-21 03:56 | PHA.PHARE_ITS ---
Consult Antibiotic Management Pharmacy has been consulted to manage selected antibiotic: Vancomycin Type of Intervention Type of Consult: Follow-up Labs Labs: Sodium 141 mmol/L (136-145) 07/16/24 06:45 Potassium 4.2 mmol/L (3.5-5.1) 07/16/24 06:45 Chloride 106 mmol/L (98-107) 07/16/24 06:45 Carbon Dioxide 30.0 mmol/L (21.0-32.0) 07/16/24 06:45 Anion Gap 5 (5-15) 07/16/24 06:45 BUN 10 mg/dL (7-18) 07/16/24 06:45 Creatinine 0.67 mg/dL (0.55-1.02) 07/16/24 06:45 Est GFR (MDRD) Af Amer 111 mL/min (>60) 07/16/24 06:45 Est GFR (MDRD) Non-Af 91 mL/min (>60) 07/16/24 06:45 BUN/Creatinine Ratio 14.9 RATIO (10-20) 07/16/24 06:45 Glucose 112 mg/dL (74-106) H 07/16/24 06:45 Vancomycin Trough 21.6 ug/mL (5.0-15.0) H 07/21/24 02:55 Random Vancomycin 16.6 ug/mL (0.0-15.0) H 07/19/24 14:25 Microbiology Microbiology: Microbiology 07/16/24 06:09 Nasal Secretion SARS-CoV-2 Antigen (Rapid) - Final Dosing Weight Weight used for dosin kg Estimated Creatinine Clearance Estimated Creatinine Clearance: 68 Goal Trough Goal Trough: 15-20 mcg/mL Pharmacy Plan for Drug Dosing Pharmacy Plan for Drug Dosing: Vancomycin trough level drawn 07/21/24 @0255 was slightly high at 21.6. However, this was drawn just 10hrs post-dose. Extrapolation puts the level within the 15- 20mcg/ml target range. Will continue dosing at 1000mg q12h. Will have another trough drawn in two days. Pharmacy Service will continue to monitor and adjust dosing as required. Follow-Up Labs Follow-Up Labs: Trough: Vancomycin Date/Time Labs Ordered Labs to be done on [date and time ordered]: 07/23/24 @0300
[2024-07-21 09:16] VITALS: BP 115/64; PULSE 79; RESP 18; TEMP 36.3; O2SAT 94
[2024-07-21] MEDS: Acetaminophen 500 MG Tablet 1000 MG PO (09:20)
[2024-07-21] MEDS: Pantoprazole Sodium 40 MG Tablet PO (09:20)
[2024-07-21] MEDS: Nystatin Powder 15gm Bottle 1 APPLIC TOPICAL (09:24)
--- NOTE | 2024-07-21 11:33 | NURSING ---
Offered covid vaccine, VIS provided. Resident declines at a time.
[2024-07-21] MEDS: 0.9% Saline Lock 10 ML Syringe IV (16:49)
[2024-07-22] MEDS: 0.9% Saline Lock 10 ML Syringe IV ×3 (03:16→15:02)
[2024-07-22] MEDS: Vancomycin IV 1,000 MG/200 ML BAG 200 MG IV ×2 (03:19→15:02)
[2024-07-22] MEDS: 0.9% Normal Saline (100mL Bag) 100 ML 15 ML IV (03:25)
[2024-07-22 03:35] VITALS: PULSE 62; RESP 16
[2024-07-22] MEDS: oxyCODONE 5 MG Tablet 2.5 MG PO (06:02)
[2024-07-22 09:28] VITALS: BP 96/51; PULSE 77; RESP 16; TEMP 36.2; O2SAT 96
[2024-07-22] MEDS: Pantoprazole Sodium 40 MG Tablet PO (09:31)
[2024-07-22] MEDS: Nystatin Powder 15gm Bottle 1 APPLIC TOPICAL ×2 (09:31→20:10)
[2024-07-22 11:31] VITALS: BMI 26.6
--- NOTE | 2024-07-22 16:51 | CASEMGMT ---
Social Work SW completed BIMS (11/16) and PHQ-2 () for MDS assessment. Sandy Kenny DISPATCHER ELECTRIC POWER CREDIT COLLECTION ASSOCIATE
[2024-07-23] MEDS: 0.9% Saline Lock 10 ML Syringe IV ×2 (03:00→16:37)
[2024-07-23 03:32] LABS: Absolute Lymphocyte Count 1.18 X10^3/uL (0.83-4.51); Absolute Neutrophil Count 4.5 X10^3/uL (2.0-7.7); Basophil# 0.02 X10^3/uL; Basophil% 0.3 % (0-1); Eosinophil# 0.25 X10^3/uL; Eosinophils% 3.7 % (0-5); Hematocrit 31.8 % (37-47); Hemoglobin 10.2 g/dL (12.0-15.0); Lymphocyte # 1.18 X10^3/ul (0.83-4.51); Lymphocyte % 17.6 % (19-41); Mean Corp Hgb Conc 32.1 g/dL (32-36); Mean Corpuscular Hgb 29.6 pg (27.0-32.0); Mean Corpuscular Volume 92.2 fL (81-99); Mean Platelet Vol. 10.4 fl (6.2-12.0); Monocyte# 0.73 X10^3/uL; Monocyte% 10.9 % (0-10); NRBC Flagged by Analyzer 0 % (0-5); Neutrophil # 4.51 X10^3/uL (2.7-7.7); Neutrophil % 67.2 % (47-70); Platelet Count 119 K/mm3 (150-450); RBC Distribution Width CV 13.2 % (11.6-14.6); RBC Distribution Width SD 44.9 fl (35.1-43.9); Red Blood Count 3.45 M/mm3 (4.2-5.4); White Blood Count 6.7 K/mm3 (4.4-11.0)
[2024-07-23 03:49] LABS: Anion Gap 11 (5-15); BUN 8 mg/dL (7-18); BUN/Creat Ratio 11.8 RATIO (10-20); Calcium,Total 8.9 mg/dL (8.5-10.1); Chloride 107 mmol/L (98-107); Creatinine, Serum 0.68 mg/dL (0.55-1.02); EST Glomerular Filtration Rate 91 mL/min (>60); Est Glom Filt Rate - Afr Amer 110 mL/min (>60); Glucose 103 mg/dL (74-106); Potassium 3.8 mmol/L (3.5-5.1); Sodium Level 141 mmol/L (136-145)
[2024-07-23 03:51] LABS: Vancomycin, Trough Level 22.3 ug/mL (5.0-15.0)
--- NOTE | 2024-07-23 03:57 | PCM.RX.CS ---
Consult Antibiotic Management Pharmacy has been consulted to manage selected antibiotic: Vancomycin Type of Intervention Type of Consult: Follow-up Labs Labs: Sodium 141 mmol/L (136-145) 07/23/24 03:00 Potassium 3.8 mmol/L (3.5-5.1) 07/23/24 03:00 Chloride 107 mmol/L (98-107) 07/23/24 03:00 Carbon Dioxide 23.0 mmol/L (21.0-32.0) 07/23/24 03:00 Anion Gap 11 (5-15) 07/23/24 03:00 BUN 8 mg/dL (7-18) 07/23/24 03:00 Creatinine 0.68 mg/dL (0.55-1.02) 07/23/24 03:00 Est GFR (MDRD) Af Amer 110 mL/min (>60) 07/23/24 03:00 Est GFR (MDRD) Non-Af 91 mL/min (>60) 07/23/24 03:00 BUN/Creatinine Ratio 11.8 RATIO (10-20) 07/23/24 03:00 Glucose 103 mg/dL (74-106) 07/23/24 03:00 Vancomycin Trough 22.3 ug/mL (5.0-15.0) H 07/23/24 03:00 Random Vancomycin 16.6 ug/mL (0.0-15.0) H 07/19/24 14:25 Microbiology Microbiology: Microbiology 07/16/24 06:09 Nasal Secretion SARS-CoV-2 Antigen (Rapid) - Final Dosing Weight Weight used for dosin kg Estimated Creatinine Clearance Estimated Creatinine Clearance: 67 Goal Trough Goal Trough: 15-20 mcg/mL Pharmacy Plan for Drug Dosing Pharmacy Plan for Drug Dosing: Vancomycin trough level of 22.3, drawn 12 hours post-dose, was above the target range of 15-20. Will suspend current dosing and will draw a random vanco level in 12 hours to determine further orders. Pharmacy Service will continue to monitor and adjust dosing as required. Follow-Up Labs Follow-Up Labs: Trough: Vancomycin (random) Date/Time Labs Ordered Labs to be done on [date and time ordered]: 07/23/24 @1500 (random)
--- NOTE | 2024-07-23 08:30 | NURSING ---
Plant Operator Helper Note; MDS for 07/22/2024 Complete
[2024-07-23] MEDS: oxyCODONE 5 MG Tablet 2.5 MG PO ×2 (08:47→13:26)
[2024-07-23] MEDS: Nystatin Powder 15gm Bottle 1 APPLIC TOPICAL ×2 (08:52→20:21)
[2024-07-23] MEDS: Pantoprazole Sodium 40 MG Tablet PO (08:52)
[2024-07-23 08:55] VITALS: BP 126/56; PULSE 83; RESP 18; O2SAT 97
--- NOTE | 2024-07-23 09:27 | NURSING ---
CAUGHT PT UP TWICE WITH ROLLATOR WALKING IN ROOM. EDUCATED PT ON USING THE CALL LIGHT FOR HELP AND MY CONCERN FOR HER FALLING. PT STATED I WILL TRY. RN AWARE
[2024-07-23] MEDS: Acetaminophen 500 MG Tablet 1000 MG PO (12:16)
[2024-07-23 15:37] LABS: Vancomycin, Random Level 16.3 ug/mL (0.0-15.0)
--- NOTE | 2024-07-23 15:54 | PCM.RX.CS ---
Consult Antibiotic Management Pharmacy has been consulted to manage selected antibiotic: Vancomycin Type of Intervention Type of Consult: Follow-up Labs Labs: Sodium 141 mmol/L (136-145) 07/23/24 03:00 Potassium 3.8 mmol/L (3.5-5.1) 07/23/24 03:00 Chloride 107 mmol/L (98-107) 07/23/24 03:00 Carbon Dioxide 23.0 mmol/L (21.0-32.0) 07/23/24 03:00 Anion Gap 11 (5-15) 07/23/24 03:00 BUN 8 mg/dL (7-18) 07/23/24 03:00 Creatinine 0.68 mg/dL (0.55-1.02) 07/23/24 03:00 Est GFR (MDRD) Af Amer 110 mL/min (>60) 07/23/24 03:00 Est GFR (MDRD) Non-Af 91 mL/min (>60) 07/23/24 03:00 BUN/Creatinine Ratio 11.8 RATIO (10-20) 07/23/24 03:00 Glucose 103 mg/dL (74-106) 07/23/24 03:00 Vancomycin Trough 22.3 ug/mL (5.0-15.0) H 07/23/24 03:00 Random Vancomycin 16.3 ug/mL (0.0-15.0) H 07/23/24 15:02 Microbiology Microbiology: Microbiology 07/23/24 08:08 Nasal Secretion SARS-CoV-2 Antigen (Rapid) - Final 07/16/24 06:09 Nasal Secretion SARS-CoV-2 Antigen (Rapid) - Final Pharmacy Plan for Drug Dosing Pharmacy Plan for Drug Dosing: VANCOMYCIN LEVEL RECEIVED Current Vancomycin Dose: on hold, was previously 1000mg q12 Number of Doses Received: many Vancomycin Level: 16.3 mg/dL Hours Since Last Dose: 24 Renal Function: SCr 0.68 mg/dL, CrCl 67 mL/min Renal Function Trend: stable Vancomycin Plan/Comments: 24 hour random level is now therapeutic (goal 15-20). Will start at a lower dose of 750mg Q12 and get a trough prior to 4th dose of new regimen. Pending Level: 07/25/24 @ 0330 Pharmacy Service will continue to monitor and adjust dosing as required.
[2024-07-23 16:00] VITALS: TEMP 36.9
[2024-07-23] MEDS: Vancomycin HCl 750 MG in 0.9% Normal Saline (250mL Bag) 250 ML 250 MG IV (16:42)
[2024-07-23 17:00] VITALS: PULSE 63; RESP 16; O2SAT 94
[2024-07-23] MEDS: 0.9% Normal Saline (100mL Bag) 100 ML 15 ML IV (17:44)
[2024-07-24] MEDS: 0.9% Saline Lock 10 ML Syringe IV ×3 (04:07→15:24)
[2024-07-24] MEDS: Vancomycin HCl 750 MG in 0.9% Normal Saline (250mL Bag) 250 ML 250 MG IV ×2 (04:10→15:25)
[2024-07-24] MEDS: Nystatin Powder 15gm Bottle 1 APPLIC TOPICAL ×2 (09:08→19:31)
[2024-07-24] MEDS: Pantoprazole Sodium 40 MG Tablet PO (09:09)
[2024-07-24] MEDS: Senna/Docusate Sodium 1 Tablet PO (09:11)
[2024-07-24 09:14] VITALS: BP 105/42; PULSE 72; RESP 18; O2SAT 97
--- NOTE | 2024-07-24 13:42 | MDS.RN ---
Information for the MDS was obtained from review of the clinical record, interview of resident, staff, and direct observation of resident?s care.
[2024-07-24 14:37] VITALS: TEMP 36.6
[2024-07-24 15:00] VITALS: PULSE 75; RESP 18; O2SAT 97
[2024-07-24] MEDS: Acetaminophen 500 MG Tablet 1000 MG PO (19:33)
[2024-07-25 04:30] LABS: Vancomycin, Trough Level 16.4 ug/mL (5.0-15.0)
[2024-07-25] MEDS: Vancomycin HCl 750 MG in 0.9% Normal Saline (250mL Bag) 250 ML 250 MG IV ×2 (04:41→17:09)
--- NOTE | 2024-07-25 06:17 | PCM.RX.CS ---
Consult Antibiotic Management Pharmacy has been consulted to manage selected antibiotic: Vancomycin Type of Intervention Type of Consult: Follow-up Labs Labs: Sodium 141 mmol/L (136-145) 07/23/24 03:00 Potassium 3.8 mmol/L (3.5-5.1) 07/23/24 03:00 Chloride 107 mmol/L (98-107) 07/23/24 03:00 Carbon Dioxide 23.0 mmol/L (21.0-32.0) 07/23/24 03:00 Anion Gap 11 (5-15) 07/23/24 03:00 BUN 8 mg/dL (7-18) 07/23/24 03:00 Creatinine 0.68 mg/dL (0.55-1.02) 07/23/24 03:00 Est GFR (MDRD) Af Amer 110 mL/min (>60) 07/23/24 03:00 Est GFR (MDRD) Non-Af 91 mL/min (>60) 07/23/24 03:00 BUN/Creatinine Ratio 11.8 RATIO (10-20) 07/23/24 03:00 Glucose 103 mg/dL (74-106) 07/23/24 03:00 Vancomycin Trough 16.4 ug/mL (5.0-15.0) H 07/25/24 03:30 Random Vancomycin 16.3 ug/mL (0.0-15.0) H 07/23/24 15:02 Microbiology Microbiology: Microbiology 07/23/24 08:08 Nasal Secretion SARS-CoV-2 Antigen (Rapid) - Final 07/16/24 06:09 Nasal Secretion SARS-CoV-2 Antigen (Rapid) - Final Goal Trough Goal Trough: 15-20 mcg/mL Pharmacy Plan for Drug Dosing Pharmacy Plan for Drug Dosing: Pharmacy Service will continue to monitor and adjust dosing as required. TROUGH 16.4 @ 12 HOURS. NO CHANGES, FOLLOW UP TROUGH IN 2 DAYS Follow-Up Labs Follow-Up Labs: Trough: Vancomycin Date/Time Labs Ordered Labs to be done on [date and time ordered]: 07/27 @ 7291
[2024-07-25 09:15] VITALS: BP 115/66; PULSE 74; RESP 17; TEMP 36.9; O2SAT 96
[2024-07-25] MEDS: Nystatin Powder 15gm Bottle 1 APPLIC TOPICAL ×2 (09:18→19:49)
[2024-07-25] MEDS: Pantoprazole Sodium 40 MG Tablet PO (09:19)
--- NOTE | 2024-07-25 10:07 | CASEMGMT ---
Social Work SW phoned dtr to discuss DC planning once IV ATB are completed. SW expressed IDT's concerns with pt returning home alone d/t decline in safety, cognition and functional abilities this admission. Dtr agrees. SW discussed several options: home with hired MANAGER CLIENT 25/12 care, living with someone, DC to AL/SNF. SW offered assistance with navigating each option once family makes a decision. Dtr to speak with pt's sister to discuss and notify this worker for further assistance. SW will continue to follow. Sandy Kenny GREEN BUILDING ENGINEER WEBFOCUS DEVELOPER
[2024-07-25] MEDS: Acetaminophen 500 MG Tablet 1000 MG PO ×2 (11:42→21:44)
[2024-07-25] MEDS: 0.9% Saline Lock 10 ML Syringe IV (17:09)
[2024-07-26] MEDS: Vancomycin HCl 750 MG in 0.9% Normal Saline (250mL Bag) 250 ML 250 MG IV ×2 (04:15→16:46)
[2024-07-26] MEDS: Nystatin Powder 15gm Bottle 1 APPLIC TOPICAL (08:33)
[2024-07-26] MEDS: Pantoprazole Sodium 40 MG Tablet PO (08:33)
[2024-07-26 10:29] VITALS: BP 120/65; PULSE 79; RESP 18; TEMP 36.5; O2SAT 99
[2024-07-26] MEDS: Acetaminophen 500 MG Tablet 1000 MG PO (13:25)
[2024-07-26] MEDS: oxyCODONE 5 MG Tablet 2.5 MG PO (13:26)
[2024-07-26] MEDS: 0.9% Saline Lock 10 ML Syringe IV ×2 (13:26→16:46)
[2024-07-27] MEDS: 0.9% Saline Lock 10 ML Syringe IV ×2 (03:30→16:09)
[2024-07-27] MEDS: Vancomycin Trough/Random Due 1 LAB MC (03:30)
[2024-07-27 04:43] LABS: Vancomycin, Trough Level 14.8 ug/mL (5.0-15.0)
[2024-07-27] MEDS: Vancomycin HCl 750 MG in 0.9% Normal Saline (250mL Bag) 250 ML 250 MG IV ×2 (04:58→16:10)
--- NOTE | 2024-07-27 04:59 | PCM.RX.CS ---
Consult Antibiotic Management Pharmacy has been consulted to manage selected antibiotic: Vancomycin Type of Intervention Type of Consult: Follow-up Labs Labs: Sodium 141 mmol/L (136-145) 07/23/24 03:00 Potassium 3.8 mmol/L (3.5-5.1) 07/23/24 03:00 Chloride 107 mmol/L (98-107) 07/23/24 03:00 Carbon Dioxide 23.0 mmol/L (21.0-32.0) 07/23/24 03:00 Anion Gap 11 (5-15) 07/23/24 03:00 BUN 8 mg/dL (7-18) 07/23/24 03:00 Creatinine 0.68 mg/dL (0.55-1.02) 07/23/24 03:00 Est GFR (MDRD) Af Amer 110 mL/min (>60) 07/23/24 03:00 Est GFR (MDRD) Non-Af 91 mL/min (>60) 07/23/24 03:00 BUN/Creatinine Ratio 11.8 RATIO (10-20) 07/23/24 03:00 Glucose 103 mg/dL (74-106) 07/23/24 03:00 Vancomycin Trough 14.8 ug/mL (5.0-15.0) 07/27/24 03:30 Random Vancomycin 16.3 ug/mL (0.0-15.0) H 07/23/24 15:02 Microbiology Microbiology: Microbiology 07/23/24 08:08 Nasal Secretion SARS-CoV-2 Antigen (Rapid) - Final 07/16/24 06:09 Nasal Secretion SARS-CoV-2 Antigen (Rapid) - Final Goal Trough Goal Trough: 15-20 mcg/mL Pharmacy Plan for Drug Dosing Pharmacy Plan for Drug Dosing: Pharmacy Service will continue to monitor and adjust dosing as required. TROUGH 14.8 @ 11 HOURS. NO CHANGES, FOLLOW UP TROUGH IN 2 DAYS Follow-Up Labs Follow-Up Labs: Trough: Vancomycin Date/Time Labs Ordered Labs to be done on [date and time ordered]: 07/29 @ 0718
[2024-07-27] MEDS: Acetaminophen 500 MG Tablet 1000 MG PO ×2 (05:04→16:10)
[2024-07-27] MEDS: Pantoprazole Sodium 40 MG Tablet PO (08:22)
[2024-07-27] MEDS: Nystatin Powder 15gm Bottle 1 APPLIC TOPICAL ×2 (08:22→20:28)
[2024-07-27 10:20] VITALS: BP 117/53; PULSE 71; RESP 18; TEMP 36.5; O2SAT 97
[2024-07-28] MEDS: 0.9% Saline Lock 10 ML Syringe IV (04:37)
[2024-07-28] MEDS: Vancomycin HCl 750 MG in 0.9% Normal Saline (250mL Bag) 250 ML 250 MG IV ×2 (04:37→16:06)
[2024-07-28 05:18] VITALS: BP 119/44; PULSE 67; RESP 20; TEMP 36.8; O2SAT 94
[2024-07-28] MEDS: Pantoprazole Sodium 40 MG Tablet PO (08:26)
[2024-07-28] MEDS: Nystatin Powder 15gm Bottle 1 APPLIC TOPICAL (08:28)
[2024-07-28] MEDS: Senna/Docusate Sodium 1 Tablet PO (08:36)
[2024-07-28 09:00] VITALS: BP 121/46; PULSE 94; RESP 18; TEMP 36.3; O2SAT 97
[2024-07-28 09:50] VITALS: PULSE 94; RESP 18; O2SAT 97
--- NOTE | 2024-07-28 11:52 | NURSING ---
Call from [facility] requesting latest labs and vanc trough. Results faxed to them at #[phone].
[2024-07-28] MEDS: 0.9% Normal Saline (100mL Bag) 100 ML 15 ML IV (16:13)
--- NOTE | 2024-07-28 16:17 | NURSING ---
PICC dressing changed to LUE per orders. Tolerated dressing change well. No C/O's voiced.
[2024-07-28] MEDS: Acetaminophen 500 MG Tablet 1000 MG PO (19:04)
[2024-07-29] MEDS: Vancomycin Trough/Random Due 1 LAB MC (03:30)
[2024-07-29 04:01] LABS: Vancomycin, Trough Level 15.7 ug/mL (5.0-15.0)
[2024-07-29] MEDS: 0.9% Saline Lock 10 ML Syringe IV ×3 (04:24→15:12)
[2024-07-29] MEDS: Vancomycin HCl 750 MG in 0.9% Normal Saline (250mL Bag) 250 ML 250 MG IV ×2 (04:24→15:20)
--- NOTE | 2024-07-29 05:14 | PCM.RX.CS ---
Consult Antibiotic Management Pharmacy has been consulted to manage selected antibiotic: Vancomycin Type of Intervention Type of Consult: Follow-up Labs Labs: Sodium 141 mmol/L (136-145) 07/23/24 03:00 Potassium 3.8 mmol/L (3.5-5.1) 07/23/24 03:00 Chloride 107 mmol/L (98-107) 07/23/24 03:00 Carbon Dioxide 23.0 mmol/L (21.0-32.0) 07/23/24 03:00 Anion Gap 11 (5-15) 07/23/24 03:00 BUN 8 mg/dL (7-18) 07/23/24 03:00 Creatinine 0.68 mg/dL (0.55-1.02) 07/23/24 03:00 Est GFR (MDRD) Af Amer 110 mL/min (>60) 07/23/24 03:00 Est GFR (MDRD) Non-Af 91 mL/min (>60) 07/23/24 03:00 BUN/Creatinine Ratio 11.8 RATIO (10-20) 07/23/24 03:00 Glucose 103 mg/dL (74-106) 07/23/24 03:00 Vancomycin Trough 15.7 ug/mL (5.0-15.0) H 07/29/24 03:30 Random Vancomycin 16.3 ug/mL (0.0-15.0) H 07/23/24 15:02 Microbiology Microbiology: Microbiology 07/23/24 08:08 Nasal Secretion SARS-CoV-2 Antigen (Rapid) - Final 07/16/24 06:09 Nasal Secretion SARS-CoV-2 Antigen (Rapid) - Final Goal Trough Goal Trough: 15-20 mcg/mL Pharmacy Plan for Drug Dosing Pharmacy Plan for Drug Dosing: Pharmacy Service will continue to monitor and adjust dosing as required. TROUGH 15.7 @ 11.5 HOURS. NO CHANGES, FOLLOW UP TROUGH IN 4 DAYS Follow-Up Labs Follow-Up Labs: Trough: Vancomycin Date/Time Labs Ordered Labs to be done on [date and time ordered]: 08/02 @ 4368
[2024-07-29] MEDS: Nystatin Powder 15gm Bottle 1 APPLIC TOPICAL ×2 (08:40→20:51)
[2024-07-29] MEDS: Pantoprazole Sodium 40 MG Tablet PO (08:42)
[2024-07-29 08:44] VITALS: BP 121/62; PULSE 78; RESP 18; TEMP 36.5; O2SAT 97
--- NOTE | 2024-07-29 14:38 | CASEMGMT ---
Social Work SW met with patient, dtr and sister to discuss DC needs and plans. Explained pt will need / supervision for CGA for loss of balance, safety and memory loss. Explained examples given by therapists to support recommendations. SW educated to home with hired caregivers, living with family or AL. SW provided resources for private duty SENIOR PEOPLESOFT DEVELOPER. Dtr considering having pt stay at her house. SW encouraged to still hire aides during the night or for self-care. Pt inquired about timeframe for assistance and fixated on next surgery to get skull placed. JOHNY explained home is dynamic and once surgery and recovery occurs, that therapy team and Dr will make new recommendations on needs for homegoing. However, currently, the recommendation will not change. Pt has an appt with ID on 08/05 to assess if pt can stop IV ATB as planned on 08/08. If so, pt can DC 08/09. If not, IDT will reassess. SW answered questions for pt and family. Will remain available for questions. Will continue to follow for DC planning assistance. Sandy Kenny VAN DRIVER ANALYTIC MANAGER
[2024-07-29 15:20] VITALS: PULSE 55; RESP 18; O2SAT 97
[2024-07-29 16:27] VITALS: BMI 27.9
[2024-07-30] MEDS: Vancomycin HCl 750 MG in 0.9% Normal Saline (250mL Bag) 250 ML 250 MG IV ×2 (03:11→15:33)
[2024-07-30 03:25] LABS: Absolute Lymphocyte Count 1.43 X10^3/uL (0.83-4.51); Absolute Neutrophil Count 3.6 X10^3/uL (2.0-7.7); Basophil# 0.02 X10^3/uL; Basophil% 0.3 % (0-1); Eosinophil# 0.31 X10^3/uL; Eosinophils% 5.2 % (0-5); Hematocrit 32.4 % (37-47); Hemoglobin 10.5 g/dL (12.0-15.0); Lymphocyte # 1.43 X10^3/ul (0.83-4.51); Lymphocyte % 24.2 % (19-41); Mean Corp Hgb Conc 32.4 g/dL (32-36); Mean Corpuscular Hgb 29.4 pg (27.0-32.0); Mean Corpuscular Volume 90.8 fL (81-99); Mean Platelet Vol. 10.5 fl (6.2-12.0); Monocyte# 0.55 X10^3/uL; Monocyte% 9.3 % (0-10); NRBC Flagged by Analyzer 0 % (0-5); Neutrophil # 3.59 X10^3/uL (2.7-7.7); Neutrophil % 60.7 % (47-70); Platelet Count 118 K/mm3 (150-450); RBC Distribution Width CV 13.1 % (11.6-14.6); Red Blood Count 3.57 M/mm3 (4.2-5.4); White Blood Count 5.9 K/mm3 (4.4-11.0)
[2024-07-30 03:51] LABS: BUN 12 mg/dL (4-19); BUN/Creat Ratio 19.5 RATIO (10-20); Creatinine, Serum 0.6 mg/dL (0.6-1.0); EST Glomerular Filtration Rate 94 (>60); Estimated Creatinine Clearance 68.47 ml/min; Glucose 103 mg/dL (70-99)
[2024-07-30 06:21] LABS: Anion Gap 12 (5-15); Calcium,Total 8.8 mg/dL (7.6-11.0); Carbon Dioxide 24.5 mmol/L (21.0-32.0); Chloride 107 mmol/L (98-107); Sodium Level 143 mmol/L (136-145)
[2024-07-30] MEDS: Nystatin Powder 15gm Bottle 1 APPLIC TOPICAL (09:28)
[2024-07-30] MEDS: Pantoprazole Sodium 40 MG Tablet PO (09:29)
[2024-07-30 09:31] VITALS: BP 135/61; PULSE 80; RESP 18; TEMP 36.7; O2SAT 94
[2024-07-30] MEDS: oxyCODONE 5 MG Tablet 2.5 MG PO (11:59)
[2024-07-30 13:00] VITALS: PULSE 80; RESP 18; O2SAT 94
[2024-07-30] MEDS: 0.9% Saline Lock 10 ML Syringe IV (15:29)
[2024-07-30] MEDS: 0.9% Normal Saline (100mL Bag) 100 ML 15 ML IV (16:40)
--- NOTE | 2024-07-30 16:41 | NURSING ---
PT BEING NONCOMPLYING WITH CALL KAP[employer] TODAY AND KEEPS GETTING UP ON OWN. EDUCATED PT AD PT STATED OK AND I UNDER STAND.
[2024-07-30] MEDS: Acetaminophen 500 MG Tablet 1000 MG PO (19:44)
[2024-07-31] MEDS: 0.9% Saline Lock 10 ML Syringe IV ×2 (03:05→16:51)
[2024-07-31] MEDS: Vancomycin HCl 750 MG in 0.9% Normal Saline (250mL Bag) 250 ML 250 MG IV ×2 (03:10→16:50)
--- NOTE | 2024-07-31 09:00 | NURSING ---
Labs from 07/30/24 faxed to [facility].
[2024-07-31 09:34] VITALS: BP 104/63; PULSE 74; RESP 16; TEMP 36.3; O2SAT 97
[2024-07-31] MEDS: Pantoprazole Sodium 40 MG Tablet PO (09:42)
[2024-07-31] MEDS: Nystatin Powder 15gm Bottle 1 APPLIC TOPICAL ×2 (09:42→19:36)
[2024-07-31] MEDS: Senna/Docusate Sodium 1 Tablet PO (09:43)
[2024-07-31 19:41] VITALS: PULSE 82; RESP 18; O2SAT 98
[2024-08-01 02:50] VITALS: PULSE 78; RESP 16; O2SAT 96
[2024-08-01] MEDS: 0.9% Normal Saline (100mL Bag) 100 ML 15 ML IV (04:12)
[2024-08-01] MEDS: Vancomycin HCl 750 MG in 0.9% Normal Saline (250mL Bag) 250 ML 250 MG IV ×2 (04:12→15:41)
[2024-08-01] MEDS: 0.9% Saline Lock 10 ML Syringe IV ×2 (04:12→15:42)
[2024-08-01] MEDS: Pantoprazole Sodium 40 MG Tablet PO (08:39)
[2024-08-01] MEDS: Nystatin Powder 15gm Bottle 1 APPLIC TOPICAL ×2 (08:39→21:39)
[2024-08-01 10:00] VITALS: BP 127/70; PULSE 69; RESP 18; TEMP 36.6; O2SAT 98
--- NOTE | 2024-08-01 16:01 | CHAPLAIN ---
Type of Pastoral Visit ___ Initial Visit _x__ Follow-up Visit ___ On-call Visit ___ General Patient Visit ___ Spiritual Assessment ___ Family Conference ___ Bereavement ___ Rapid Response ___ Code Blue ___ Other (describe below) Pastoral Care Referral From _x__ Patient ___ Family ___ Nurse ___ Physician ___ Speech Language Assistant ___ Information Receptionist ___ Other (describe below) Sacrament/Intervention _x__ Active listening ___ Anointing ___ Congregational ___ Bereavement ___ Communion ___ Carol exploration ___ ___ Life review _x__ Prayer ___ Reconciliation ___ Sacrament of Sick _x__ Supportive presence ___ Wedding ___ Other (describe below) Pastoral Comments patient states that she has been actively working on her walking and therapy; pt says that she is anxious to get home after having been weeks in a hospital; pt has concerns for other family members who have health needs; pt asks for prayer for herself and her family but states that is all that she needs right now
[2024-08-02 04:55] LABS: Vancomycin, Trough Level 13.8 ug/mL (5.0-15.0)
--- NOTE | 2024-08-02 05:06 | PCM.RX.CS ---
Consult Antibiotic Management Pharmacy has been consulted to manage selected antibiotic: Vancomycin Type of Intervention Type of Consult: Follow-up Labs Labs: Sodium 143 mmol/L (136-145) 07/30/24 03:05 Potassium 4.0 mmol/L (3.5-5.1) 07/30/24 03:05 Chloride 107 mmol/L (98-107) 07/30/24 03:05 Carbon Dioxide 24.5 mmol/L (21.0-32.0) 07/30/24 03:05 Anion Gap 12 (5-15) 07/30/24 03:05 BUN 12 mg/dL (4-19) 07/30/24 03:05 Creatinine 0.6 mg/dL (0.6-1.0) 07/30/24 03:05 Est GFR (MDRD) Af Amer Not Reportable 07/30/24 03:05 Est GFR (MDRD) Non-Af 94 (>60) 07/30/24 03:05 BUN/Creatinine Ratio 19.5 RATIO (10-20) 07/30/24 03:05 Glucose 103 mg/dL (70-99) H 07/30/24 03:05 Vancomycin Trough 13.8 ug/mL (5.0-15.0) 08/02/24 04:15 Random Vancomycin 16.3 ug/mL (0.0-15.0) H 07/23/24 15:02 Microbiology Microbiology: Microbiology 07/23/24 08:08 Nasal Secretion SARS-CoV-2 Antigen (Rapid) - Final 07/16/24 06:09 Nasal Secretion SARS-CoV-2 Antigen (Rapid) - Final Dosing Weight Weight used for dosin kg Estimated Creatinine Clearance Estimated Creatinine Clearance: 68 Goal Trough Goal Trough: 15-20 mcg/mL Pharmacy Plan for Drug Dosing Pharmacy Plan for Drug Dosing: Vancomycin trough level of 13.8 was slightly below the target range of 15-20. The level is on the borderline to warrant increasing dose, but was drawn 12.5hrs post-dose so will continue at 750mg q12h. Another trough will be drawn in two days. Vanco therapy is still scheduled to be completed 08/08/24. Pharmacy Service will continue to monitor and adjust dosing as required. Follow-Up Labs Follow-Up Labs: Trough: Vancomycin Date/Time Labs Ordered Labs to be done on [date and time ordered]: 08/04/24 @9055
[2024-08-02] MEDS: Vancomycin HCl 750 MG in 0.9% Normal Saline (250mL Bag) 250 ML 250 MG IV ×2 (05:15→15:22)
[2024-08-02] MEDS: Pantoprazole Sodium 40 MG Tablet PO (08:42)
[2024-08-02] MEDS: Nystatin Powder 15gm Bottle 1 APPLIC TOPICAL ×2 (08:42→19:57)
[2024-08-02 10:50] VITALS: BP 110/56; PULSE 70; RESP 18; TEMP 36.6; O2SAT 98
[2024-08-02] MEDS: Acetaminophen 500 MG Tablet 1000 MG PO (15:22)
[2024-08-03] MEDS: Acetaminophen 500 MG Tablet 1000 MG PO ×2 (00:28→23:27)
[2024-08-03] MEDS: Vancomycin HCl 750 MG in 0.9% Normal Saline (250mL Bag) 250 ML 250 MG IV ×2 (03:38→16:03)
[2024-08-03] MEDS: 0.9% Saline Lock 10 ML Syringe IV ×2 (03:38→16:07)
[2024-08-03 09:56] VITALS: BP 123/60; PULSE 75; RESP 17; TEMP 36.3; O2SAT 95
[2024-08-03] MEDS: Nystatin Powder 15gm Bottle 1 APPLIC TOPICAL ×2 (09:57→20:14)
[2024-08-03] MEDS: Pantoprazole Sodium 40 MG Tablet PO (09:57)
[2024-08-04 03:53] LABS: Vancomycin, Trough Level 14.8 ug/mL (5.0-15.0)
[2024-08-04] MEDS: Vancomycin HCl 750 MG in 0.9% Normal Saline (250mL Bag) 250 ML 250 MG IV ×2 (04:02→16:49)
--- NOTE | 2024-08-04 04:31 | PCM.RX.CS ---
Consult Antibiotic Management Pharmacy has been consulted to manage selected antibiotic: Vancomycin Type of Intervention Type of Consult: Follow-up Labs Labs: Sodium 143 mmol/L (136-145) 07/30/24 03:05 Potassium 4.0 mmol/L (3.5-5.1) 07/30/24 03:05 Chloride 107 mmol/L (98-107) 07/30/24 03:05 Carbon Dioxide 24.5 mmol/L (21.0-32.0) 07/30/24 03:05 Anion Gap 12 (5-15) 07/30/24 03:05 BUN 12 mg/dL (4-19) 07/30/24 03:05 Creatinine 0.6 mg/dL (0.6-1.0) 07/30/24 03:05 Est GFR (MDRD) Af Amer Not Reportable 07/30/24 03:05 Est GFR (MDRD) Non-Af 94 (>60) 07/30/24 03:05 BUN/Creatinine Ratio 19.5 RATIO (10-20) 07/30/24 03:05 Glucose 103 mg/dL (70-99) H 07/30/24 03:05 Vancomycin Trough 14.8 ug/mL (5.0-15.0) 08/04/24 03:15 Random Vancomycin 16.3 ug/mL (0.0-15.0) H 07/23/24 15:02 Microbiology Microbiology: Microbiology 07/23/24 08:08 Nasal Secretion SARS-CoV-2 Antigen (Rapid) - Final 07/16/24 06:09 Nasal Secretion SARS-CoV-2 Antigen (Rapid) - Final Dosing Weight Weight used for dosin kg Estimated Creatinine Clearance Estimated Creatinine Clearance: 68 Goal Trough Goal Trough: 15-20 mcg/mL Pharmacy Plan for Drug Dosing Pharmacy Plan for Drug Dosing: Vancomycin trough level of 14.8, drawn 11.25hrs post-dose, was just slightly below the target range of 15-20. Will continue dosing at 750mg q12h. No further lab monitoring should be necessary if original stop date of 08/08/24 is maintained. Pharmacy Service will continue to monitor and adjust dosing as required.
[2024-08-04 09:21] VITALS: BP 126/49; PULSE 85; RESP 17; TEMP 36.9; O2SAT 97
[2024-08-04] MEDS: Nystatin Powder 15gm Bottle 1 APPLIC TOPICAL (09:25)
[2024-08-04] MEDS: Pantoprazole Sodium 40 MG Tablet PO (09:25)
--- NOTE | 2024-08-04 13:37 | NURSING ---
Resident returned to room after walking in hallway with this RN. She said don't you dare put that alarm on. Discussed safety concerns but she continued to insist it being turned off. Alarm turned off. Asked that if she ever feels unsteady that she call for help, and she added and sit right back down.
[2024-08-04] MEDS: 0.9% Saline Lock 10 ML Syringe IV (16:50)
[2024-08-05] MEDS: 0.9% Saline Lock 10 ML Syringe IV ×2 (04:05→16:27)
[2024-08-05] MEDS: Vancomycin HCl 750 MG in 0.9% Normal Saline (250mL Bag) 250 ML 250 MG IV ×2 (04:05→16:31)
[2024-08-05] MEDS: Pantoprazole Sodium 40 MG Tablet PO (08:30)
[2024-08-05] MEDS: Nystatin Powder 15gm Bottle 1 APPLIC TOPICAL ×2 (08:30→19:39)
[2024-08-05] MEDS: Acetaminophen 500 MG Tablet 1000 MG PO ×2 (08:35→18:38)
[2024-08-05 08:44] VITALS: BP 122/48; PULSE 90; RESP 18; TEMP 36.7; O2SAT 96
[2024-08-05 10:30] VITALS: PULSE 86; RESP 18; O2SAT 96
--- NOTE | 2024-08-05 11:38 | NURSING ---
PT LEFT FOR DRBasimAPPOINTMENT AT 1130 WITH IN [place],DAUGHTER TAKING. PT REFUSING TO TAKE HER WALKER WITH HER. THERAPY GAVE PT ONE OF OUR WALKERS AND EDUCATED PT. THIS NURSE ALSO EDUCATED PT ON TAKING A WALKER WITH HER IN CASE SHE MAY HAVE TO WALK A LITTLE WAYS. PT STATED NO! KATRIN NOT TAKING IT WITH ME I WILL BE FINE. STEEL CRANE OPERATOR ALSO TRIED TO GET PT TO TAKE A WALKER AND PT STILL REFUSED. TJ/NURSE'S COMPANION AND RN AWARE.
[2024-08-05 16:00] VITALS: BMI 26.9
--- NOTE | 2024-08-05 16:11 | NURSING ---
PT RETURNED TO FLOOR BY WHEEL CHAIR AT 1600 FROM APPOINTMENT IN [place]. NEW ORDERS,STOP VANCOMYCIN ON 08/08/24, REMOVE PICC ON 08/08/24, NO FURTHER LABS AFTER 08/08/24. RN AWARE
[2024-08-05] MEDS: 0.9% Normal Saline (100mL Bag) 100 ML 15 ML IV (17:37)
[2024-08-06] MEDS: Acetaminophen 500 MG Tablet 1000 MG PO ×3 (02:22→19:22)
[2024-08-06] MEDS: Vancomycin HCl 750 MG in 0.9% Normal Saline (250mL Bag) 250 ML 250 MG IV ×2 (04:02→16:40)
[2024-08-06] MEDS: 0.9% Saline Lock 10 ML Syringe IV ×3 (04:02→16:40)
[2024-08-06] MEDS: Baclofen 10 MG Tablet PO ×2 (04:16→16:48)
[2024-08-06 04:31] LABS: Absolute Lymphocyte Count 1.54 X10^3/uL (0.83-4.51); Absolute Neutrophil Count 4.9 X10^3/uL (2.0-7.7); Basophil# 0.03 X10^3/uL; Basophil% 0.4 % (0-1); Eosinophil# 0.33 X10^3/uL; Eosinophils% 4.3 % (0-5); Hematocrit 35.7 % (37-47); Hemoglobin 11.4 g/dL (12.0-15.0); Lymphocyte # 1.54 X10^3/ul (0.83-4.51); Lymphocyte % 20.1 % (19-41); Mean Corp Hgb Conc 31.9 g/dL (32-36); Mean Corpuscular Hgb 29.1 pg (27.0-32.0); Mean Corpuscular Volume 91.1 fL (81-99); Mean Platelet Vol. 10.7 fl (6.2-12.0); Monocyte# 0.81 X10^3/uL; Monocyte% 10.5 % (0-10); NRBC Flagged by Analyzer 0 % (0-5); Neutrophil # 4.92 X10^3/uL (2.7-7.7); Platelet Count 100 K/mm3 (150-450); RBC Distribution Width CV 13.2 % (11.6-14.6); RBC Distribution Width SD 44.1 fl (35.1-43.9); Red Blood Count 3.92 M/mm3 (4.2-5.4); White Blood Count 7.7 K/mm3 (4.4-11.0)
[2024-08-06 04:32] VITALS: PULSE 90; RESP 16
[2024-08-06 04:53] LABS: Anion Gap 11 (5-15); BUN 16 mg/dL (4-19); BUN/Creat Ratio 23.5 RATIO (10-20); Calcium,Total 9.1 mg/dL (7.6-11.0); Carbon Dioxide 24.4 mmol/L (21.0-32.0); Chloride 104 mmol/L (98-108); Creatinine, Serum 0.67 mg/dL (0.70-1.20); EST Glomerular Filtration Rate 92 (>60); Estimated Creatinine Clearance 67.31 ml/min (50-250); Glucose 103 mg/dL (70-99); Potassium 4.4 mmol/L (3.3-5.1); Sodium Level 140 mmol/L (133-145)
[2024-08-06 09:44] VITALS: BP 119/62; PULSE 86; RESP 17; TEMP 36.4; O2SAT 96
[2024-08-06] MEDS: Pantoprazole Sodium 40 MG Tablet PO (09:48)
[2024-08-06] MEDS: Nystatin Powder 15gm Bottle 1 APPLIC TOPICAL ×2 (09:49→19:23)
--- NOTE | 2024-08-06 11:10 | PCA ---
Brooke has taken herself for walks in the hallway and taken herself to the bathroom throughout the day refusing to ring for staff as well as refusing personal alarms
[2024-08-06] MEDS: Senna/Docusate Sodium 1 Tablet PO (12:57)
--- NOTE | 2024-08-06 13:05 | CASEMGMT ---
Social Work SW reviewed with nursing that appt confirmed end of IV ATB 08/08. Pt can DC 08/09, as planned. - SW spoke with pt at bedside and confirmed DC 08/09. Pt confirmed. SW inquired the DC plan. Pt stated she will DC to her dtr's house in [place]. SW inquired about ongoing therapy, HHC v OP. Pt unsure she wants to continue but deferred to dtr. SW to phone dtr and finalize plans. - SW phoned dtr and dtr confirmed DC to her home. Dtr to speak with pt's sister on HHC vs OP therapy or none. Dtr to notify this worker of outcome. Confirmed no DME needs. Plan: DC to dtr/s house 08/09 Sandy Kenny MSW COLLOID MILL OPERATOR
[2024-08-06] MEDS: 0.9% Normal Saline (100mL Bag) 100 ML 15 ML IV (16:39)
--- NOTE | 2024-08-06 18:05 | DS.PCM_ITS ---
Providers Date of Admission: 07/15/24 Primary Care Physician: Dr. Mary Smith DO Reason For Visit: ICH, SUBDURAL HEMATOMA, S/P CRANIOTOMY Diagnosis Discharge Diagnosis (1) Debility: Status: Acute Code(s): R53.81 - Other malaise (2) Dysarthria: Status: Inactive Code(s): R47.1 - Dysarthria and anarthria (3) SDH (subdural hematoma): Status: Acute Code(s): S06.5XAA - Traumatic subdural hemorrhage with loss of consciousness status unknown, initial encounter (4) Infection of cranial bone flap: Status: Acute Code(s): T81.43XA - Infection following a procedure, organ and space surgical site, initial encounter (5) MRSA (methicillin resistant Staphylococcus aureus) infection: Status: Acute Code(s): A49.02 - Methicillin resistant Staphylococcus aureus infection, unspecified site (6) GERD (gastroesophageal reflux disease): Status: Acute Code(s): K21.9 - Gastro-esophageal reflux disease without esophagitis Plan 74 year old female with below past medical history hospitalized for dysarthria, 2/2 new subdural hematoma collection, admitted to TCU with debility, here for rehabilitation, intravenous antibiotics, prior to discharge home alone. * Debility - PT/OT. * Pain - Tylenol 1000mg q6 prn headache, Oxycodone 2.5mg q6 prn pain (7-10). * Bowel - senna/colace 1 tablet bid prn. * Adult immunization - Administer pneumonia vaccine, covid vaccine, flu vaccine as appropriate. * DVT prophylaxis - contraindicated 2/2 spontaneous brain bleeds. * Nausea - Zofran 4mg q8 prn. * GERD - Pantoprazole 40mg daily. * MRSA decolonization - Mupirocin topical bilateral nares bid. * MRSA bone flap infection - Vancomycin 1000mg iv q12 thru 08/08/2024. Medications at Discharge Home Medications acetaminophen 500 mg tablet 1,000 mg (2 x 500 mg) PO Q6H PRN PRN headache #0 tabs 08/06/24 baclofen 10 mg tablet 10 mg PO TID PRN Muscle Spasm 30 days #90 tabs 08/06/24 pantoprazole 40 mg tablet,delayed release 40 mg PO DAILY 30 days #30 tabs 08/06/24 Hospital Course Operations - (See below.) Procedures None Summary of Care Provided Minutes Spent on Discharge: 35 Hospital Course: 74 year old female with below past medical history hospitalized for dysarthria, 2/2 new subdural hematoma collection, admitted to TCU with debility, here for rehabilitation, intravenous antibiotics, prior to discharge home alone. Discharge to daughter's house 08/09/2024. Resident will need cranioplasty in near future with Dr. Rodriguez. Physical Exam Const alert General Appearance: cooperative HEENT HEENT Narrative: Left craniotomy, sutures intact. Eyes PERRL and EOMs intact bilaterally Neck supple, no JVD and no carotid bruits Resp normal respiratory effort, normal air movement and clear to auscultation bilaterally Cardio regular rate and regular rhythm GI normal to inspection, nondistended, normoactive bowel sounds, non-tender and non-distended Extremity normal capillary refill Extremity Narrative: Left upper extremity PICC line. General Extremity: Negative for edema Skin no rashes or lesions noted General Skin Exam: no breakdown Psych affect normal Appearance: appropriate Weight / BMI Weight Weight: 77.791 kg Body Mass Index (BMI) 26.9 ABG / Lab / Microbiology Data 08/06/24 04:00 08/06/24 04:00 Laboratory: Laboratory Results - last 24 hr 08/06/24 04:00: WBC 7.7, RBC 3.92 L, Hgb 11.4 L, Hct 35.7 L, MCV 91.1, MCH 29.1, MCHC 31.9 L, RDW Std Deviation 44.1 H, RDW Coeff of Bria 13.2, Plt Count 100 L, MPV 10.7, Immature Gran % (Auto) 0.700, Neut % (Auto) 64.0, Lymph % (Auto) 20.1, [place] % (Auto) 10.5 H, Eos % (Auto) 4.3, Baso % (Auto) 0.4, Absolute Neuts (auto) 4.9, Absolute Lymphs (auto) 1.54, Nucleated RBC % 0, Sodium 140, Potassium 4.4, Chloride 104, Carbon Dioxide 24.4, Anion Gap 11, BUN 16, Creatinine 0.67 L, Estim Creat Clear Calc 67.31, Est GFR (MDRD) Af Amer Not Reportable, Est GFR (MDRD) Non-Af 92, BUN/Creatinine Ratio 23.5 H, Glucose 103 H, Calcium 9.1 Microbiology: Microbiology 07/23/24 08:08 Nasal Secretion SARS-CoV-2 Antigen (Rapid) - Final 07/16/24 06:09 Nasal Secretion SARS-CoV-2 Antigen (Rapid) - Final D/C Instructions Discharge Diet: No restrictions Discharge Activity: Return to Normal Activity and May Shower Weight Bearing Status: Weight bearing as tolerated Call your doctor if you observe: Fever of 101 or Higher, Inability to urinate, Inability to have a bowel movement, Shortness of breath, Dizziness, Fainting spells, Swelling in the ankles, Chest pain and Uncontrolled pain DC O2, CPAP, BIPAP Needs Home O2 Discharge instructions: No Additional Instructions: Discharge to daughter's house 08/09/2024. Resident will need cranioplasty in near future with Dr. Rodriguez. Please Follow Up With: Dr. Jim Rodriguez, [facility] When: As scheduled. Meaningful Use Info Meaningful Use Meaningful Use Diagnoses (Choose all that apply): Hemorrhagic CVA CVA Therapy Assessed for PT,OT and/or ST?: Yes Ischemic Stroke Statin Dosing Therapy Reference: STATIN DOSE THERAPY REFERENCE: * Patients > 75 years receive moderate or high dose statin therapy. * Patients 75 years or YOUNGER should receive HIGH intensity statin dose unless contraindicated. You will be required to document reason for non-treatment if statin daily dose does not meet guidelines. HIGH DOSE STATIN THERAPY DAILY Atorvastatin > than or = to 40 mg Rosuvastatin > than or = to 20 mg Amlodipine + Atorvastatin > than or = to 2.5/40 mg Ezetimibe + Simvastatin 10/80 mg Simvastatin 80mg Discharge Plan Admission Admit Date/Time: 07/15/24 20:25 Primary Reason for Your Visit: Debility. Attending Provider: Gopi Fox Chi Primary Care Provider: Mary Smith Instructions Additional Instructions / Restrictions: Discharge to daughter's house 08/09/2024. Resident will need cranioplasty in near future with Dr. Rodriguez. Discharge Orders/Prescriptions Prescriptions: New acetaminophen 500 mg Tablet 1,000 mg PO Q6H PRN PRN (Reason: headache) Qty: 0 0RF baclofen 10 mg Tablet 10 mg PO TID PRN (Reason: Muscle Spasm) 30 Days Qty: 90 0RF pantoprazole 40 mg Tablet,Delayed Release (Dr/Ec) 40 mg PO DAILY 30 Days Qty: 30 0RF Discontinued loratadine [Claritin] 10 mg tablet 10 mg PO DAILY pantoprazole [Protonix] 40 MG tablet,delayed release (DR/EC) 40 mg PO DAILY cyanocobalamin (vitamin B-12) 1 tab PO DAILY potassium gluconate 600 mg (99 mg) tablet 600 mg PO DAILY ondansetron 4 mg tablet,disintegrating 4 mg PO Q8H PRN (Reason: nausea and vomiting) Rx Instructions: Can take up to 7 days, 07/16/24 is stop date oxycodone 5 mg tablet 2.5 mg PO Q6H PRN (Reason: pain (scale score 7-10)) Rx Instructions: can take up to 5 days, 07/14/24 cholecalciferol (vitamin D3) [Vitamin D3] 50 mcg (2,000 unit) capsule 50 mcg PO DAILY baclofen 10 mg Tablet 10 mg PO BID PRN (Reason: muscle spasm) acetaminophen 500 mg capsule 1,000 mg PO Q6H PRN (Reason: headache) senna 8.6 mg capsule 17.2 mg PO QHS PRN (Reason: stool softner) mupirocin 2 % ointment 1 applic topical BID ascorbic acid (vitamin C) 500 mg Tablet 500 mg PO DAILY vancomycin 1,000 mg recon soln 1 g IV Q12H Patient Comments: 1000 mg BID through 08/08/2024 Referrals / Follow Up: Mary Smith DO [Primary Care Provider] - Disposition Disposition (needs filled in before D/C Order can be placed): Home, Self Care
[2024-08-07] MEDS: 0.9% Saline Lock 10 ML Syringe IV ×3 (04:02→15:33)
[2024-08-07] MEDS: Vancomycin HCl 750 MG in 0.9% Normal Saline (250mL Bag) 250 ML 250 MG IV ×2 (04:03→15:37)
[2024-08-07] MEDS: Acetaminophen 500 MG Tablet 1000 MG PO ×2 (06:38→20:13)
[2024-08-07] MEDS: Nystatin Powder 15gm Bottle 1 APPLIC TOPICAL ×2 (09:00→20:11)
[2024-08-07] MEDS: Pantoprazole Sodium 40 MG Tablet PO (09:02)
[2024-08-07 09:06] VITALS: BP 112/61; PULSE 82; RESP 18; TEMP 36.4; O2SAT 94
--- NOTE | 2024-08-07 11:12 | CASEMGMT ---
Social Work SW completed BIMS (04/18) and PHQ-2 () for MDS assessment. Sandy Kenny COLLISION WORKER business analyst manager
--- NOTE | 2024-08-07 12:08 | CASEMGMT ---
Addendum entered by Sandy Kenny 08/07/24 14:41: [facility] can accept and that is first choice. DC orders sent. Addendum entered by Sandy Kenny 08/07/24 13:17: Dtr provided 5 choices. SW placed referrals via [facility]. Original Note: Social Work SW completed BIMS (04/18) and PHQ-2 () for MDS assessment. - SW received return call from dtr agreeing to continued therapy, though did not specify in what capacity. SW returned dtr's call to clarify. Dtr stated her house is a split-level and unsure if HHC would assist in the home transition. SW offered to start with HHC since pt will be in a new environment for a short time, then transition to OP therapy to continue with the intensive therapy. Dtr agreed. SW offered list of skilled HHC providers that include quality and resource data via [facility] Guide. Dtr agreed and requested a text link. SW sent. Will await choices and place referrals. Sandy MAYW
--- NOTE | 2024-08-07 14:54 | NURSING ---
Left VM with Dr. Smith's office in attempt to set up PCP follow-up. Await return call.
[2024-08-08] MEDS: Vancomycin HCl 750 MG in 0.9% Normal Saline (250mL Bag) 250 ML 250 MG IV ×2 (03:26→15:52)
[2024-08-08 09:46] VITALS: BP 104/49; PULSE 84; RESP 16; TEMP 36.3; O2SAT 98
[2024-08-08] MEDS: Nystatin Powder 15gm Bottle 1 APPLIC TOPICAL (09:47)
[2024-08-08] MEDS: Pantoprazole Sodium 40 MG Tablet PO (09:47)
--- NOTE | 2024-08-08 10:15 | MDS.RN ---
Pain assessment for MDS completed.
[2024-08-08] MEDS: Acetaminophen 500 MG Tablet 1000 MG PO (12:40)
[2024-08-08] MEDS: 0.9% Saline Lock 10 ML Syringe IV (15:52)
[2024-08-08] MEDS: 0.9% Normal Saline (100mL Bag) 100 ML 15 ML IV (15:53)
[2024-08-08] MEDS: Baclofen 10 MG Tablet PO (16:44)
[2024-08-09] MEDS: Acetaminophen 500 MG Tablet 1000 MG PO (09:04)
[2024-08-09] MEDS: Nystatin Powder 15gm Bottle 1 APPLIC TOPICAL (09:05)
[2024-08-09] MEDS: Pantoprazole Sodium 40 MG Tablet PO (09:05)
[2024-08-09 10:56] VITALS: BP 125/76; PULSE 82; RESP 16; TEMP 36.6; O2SAT 94
== END 2024-08-09 11:35 | disposition home health service (06) | DRG 57 ==
PROVIDERS: Admitting Provider Family Medicine Geriatric Medicine; PCP Family Medicine; Visit Provider Family Medicine Geriatric Medicine
DX: I69.222 Dysarthria following other nontraumatic intracranial hemorrhage (principal); T86.832 Bone graft infection; K21.9 Gastro-esophageal reflux disease without esophagitis; Z87.891 Personal history of nicotine dependence; Y83.2 Surgical operation with anastomosis, bypass or graft as the cause of abnormal reaction of the patient, or of later complication, without mention of misadventure at the time of the procedure; B95.62 Methicillin resistant Staphylococcus aureus infection as the cause of diseases classified elsewhere; Z79.899 Other long term (current) drug therapy
CPT/HCPCS: 36415; 80048; 80202; 85025; 87811; 92507; 92523; 97110; 97116; 97129; 97130; 97162; 97166; 97530; 97535; 97802; A4216

== ENCOUNTER → 2024-08-20 | Outpatient (CLI) | payer MEDICARE, OTHER, SELFPAY ==
[2024-08-20 17:10] LABS: Absolute Lymphocyte Count 1.73 X10^3/uL (0.83-4.51); Absolute Neutrophil Count 4.6 X10^3/uL (2.0-7.7); Basophil# 0.02 X10^3/uL; Basophil% 0.3 % (0-1); Eosinophil# 0.15 X10^3/uL; Eosinophils% 2.1 % (0-5); Hematocrit 34.5 % (37-47); Hemoglobin 11.1 g/dL (12.0-15.0); Lymphocyte # 1.73 X10^3/ul (0.83-4.51); Lymphocyte % 23.9 % (19-41); Mean Corp Hgb Conc 32.2 g/dL (32-36); Mean Corpuscular Hgb 29.1 pg (27.0-32.0); Mean Corpuscular Volume 90.6 fL (81-99); Mean Platelet Vol. 10.3 fl (6.2-12.0); Monocyte# 0.71 X10^3/uL; Monocyte% 9.8 % (0-10); NRBC Flagged by Analyzer 0 % (0-5); Neutrophil % 63.6 % (47-70); Platelet Count 188 K/mm3 (150-450); RBC Distribution Width CV 13.3 % (11.6-14.6); RBC Distribution Width SD 43.8 fl (35.1-43.9); Red Blood Count 3.81 M/mm3 (4.2-5.4); White Blood Count 7.2 K/mm3 (4.4-11.0)
[2024-08-20 17:24] LABS: Erythrocyte Sedimentation Rate 1 mm/hr (0-30)
[2024-08-20 18:10] LABS: ALB/GLOB Ratio 1.4 RATIO (0.9-2.4); AST(SGOT) 32 U/L (<=31); Alanine Aminotransfer ALT/SGPT 22 U/L (<=34); Albumin, Serum 3.8 g/dL (3.4-4.8); Alkaline Phosphatase 75 U/L (35-104); Anion Gap 13 (5-15); BUN 12 mg/dL (4-19); BUN/Creat Ratio 16.5 RATIO (10-20); CRP 6.77 mg/L (0.0-3.0); Calcium,Total 8.6 mg/dL (7.6-11.0); Carbon Dioxide 21.2 mmol/L (21.0-32.0); Chloride 103 mmol/L (98-108); Creatinine, Serum 0.72 mg/dL (0.70-1.20); EST Glomerular Filtration Rate 89 (>60); Globulin 2.6 g/dL (2.2-4.2); Glucose 89 mg/dL (70-99); Protein, Total 6.4 g/dL (5.9-8.4); Sodium Level 138 mmol/L (133-145); Total Bilirubin 0.66 mg/dL (0.00-1.30)
== END | disposition home or self-care (01) ==
LOC: BFHLAB 13:55
PROVIDERS: PCP Family Medicine; Visit Provider Family Medicine
DX: D69.6 Thrombocytopenia, unspecified (principal); K26.4 Chronic or unspecified duodenal ulcer with hemorrhage; Z51.81 Encounter for therapeutic drug level monitoring
CPT/HCPCS: 36415; 80053; 85025; 85652; 86140

== ENCOUNTER → 2024-10-21 | Outpatient (CLI) | payer MEDICARE, OTHER, SELFPAY ==
[2024-10-21 10:44] LABS: Erythrocyte Sedimentation Rate 7 mm/hr (0-30)
[2024-10-21 10:46] LABS: Absolute Lymphocyte Count 1.36 X10^3/uL (0.83-4.51); Absolute Neutrophil Count 2.9 X10^3/uL (2.0-7.7); Basophil# 0.02 X10^3/uL; Basophil% 0.4 % (0-1); Eosinophil# 0.09 X10^3/uL; Eosinophils% 1.8 % (0-5); Hematocrit 35.6 % (37-47); Hemoglobin 10.7 g/dL (12.0-15.0); Lymphocyte # 1.36 X10^3/ul (0.83-4.51); Lymphocyte % 26.8 % (19-41); Mean Corp Hgb Conc 30.1 g/dL (32-36); Mean Corpuscular Hgb 25.1 pg (27.0-32.0); Mean Corpuscular Volume 83.6 fL (81-99); Mean Platelet Vol. 10.2 fl (6.2-12.0); Monocyte# 0.65 X10^3/uL; Monocyte% 12.8 % (0-10); NRBC Flagged by Analyzer 0 % (0-5); Neutrophil # 2.93 X10^3/uL (2.7-7.7); Neutrophil % 57.8 % (47-70); Platelet Count 243 K/mm3 (150-450); RBC Distribution Width CV 15.3 % (11.6-14.6); Red Blood Count 4.26 M/mm3 (4.2-5.4); White Blood Count 5.1 K/mm3 (4.4-11.0)
[2024-10-21 11:11] LABS: ALB/GLOB Ratio 1.1 RATIO (0.9-2.4); AST(SGOT) 41 U/L (<=31); Alanine Aminotransfer ALT/SGPT 23 U/L (<=34); Albumin, Serum 3.7 g/dL (3.4-4.8); Alkaline Phosphatase 150 U/L (35-104); Anion Gap 12 (5-15); BUN 16 mg/dL (4-19); BUN/Creat Ratio 23.1 RATIO (10-20); CRP 3.04 mg/L (0.0-3.0); Calcium,Total 9.1 mg/dL (7.6-11.0); Carbon Dioxide 21.9 mmol/L (21.0-32.0); Chloride 104 mmol/L (98-108); EST Glomerular Filtration Rate 91 (>60); Globulin 3.4 g/dL (2.2-4.2); Glucose 91 mg/dL (70-99); Magnesium 2.1 mg/dL (1.5-2.2); Potassium 4.6 mmol/L (3.3-5.1); Sodium Level 138 mmol/L (133-145); Total Bilirubin 0.68 mg/dL (0.00-1.30)
== END | disposition home or self-care (01) ==
LOC: MTLAB 07:08
PROVIDERS: PCP Family Medicine; Referring Provider Family Medicine; Visit Provider Family Medicine
DX: R60.0 Localized edema (principal); Z51.81 Encounter for therapeutic drug level monitoring; Z87.898 Personal history of other specified conditions
CPT/HCPCS: 36415; 80053; 83735; 85025; 85652; 86140

== ENCOUNTER → 2024-11-19 | Outpatient (CLI) | payer MEDICARE, OTHER, SELFPAY ==
[2024-11-19 12:51] LABS: Erythrocyte Sedimentation Rate 4 mm/hr (0-30)
[2024-11-19 12:55] LABS: Absolute Neutrophil Count 3.1 X10^3/uL (2.0-7.7); Basophil# 0.01 X10^3/uL; Basophil% 0.2 % (0-1); Hematocrit 32.8 % (37-47); Hemoglobin 9.8 g/dL (12.0-15.0); Lymphocyte % 27.5 % (19-41); Mean Corp Hgb Conc 29.9 g/dL (32-36); Mean Corpuscular Hgb 23.8 pg (27.0-32.0); Mean Corpuscular Volume 79.8 fL (81-99); Mean Platelet Vol. 10.2 fl (6.2-12.0); Monocyte# 0.44 X10^3/uL; Monocyte% 8.6 % (0-10); NRBC Flagged by Analyzer 0 % (0-5); Neutrophil # 3.14 X10^3/uL (2.7-7.7); Neutrophil % 61.5 % (47-70); Platelet Count 220 K/mm3 (150-450); RBC Distribution Width CV 16.1 % (11.6-14.6); RBC Distribution Width SD 46.4 fl (35.1-43.9); Red Blood Count 4.11 M/mm3 (4.2-5.4); White Blood Count 5.1 K/mm3 (4.4-11.0)
[2024-11-19 13:03] LABS: ALB/GLOB Ratio 1.3 RATIO (0.9-2.4); AST(SGOT) 61 U/L (<=31); Alanine Aminotransfer ALT/SGPT 45 U/L (<=34); Albumin, Serum 3.8 g/dL (3.4-4.8); Alkaline Phosphatase 121 U/L (35-104); Anion Gap 10 (5-15); BUN 15 mg/dL (4-19); BUN/Creat Ratio 21.2 RATIO (10-20); Calcium,Total 9.1 mg/dL (7.6-11.0); Carbon Dioxide 25.7 mmol/L (21.0-32.0); Chloride 104 mmol/L (98-108); Creatinine, Serum 0.72 mg/dL (0.70-1.20); EST Glomerular Filtration Rate 89 (>60); Globulin 2.9 g/dL (2.2-4.2); Glucose 115 mg/dL (70-99); Potassium 4.5 mmol/L (3.3-5.1); Protein, Total 6.6 g/dL (5.9-8.4); Sodium Level 141 mmol/L (133-145); Total Bilirubin 0.61 mg/dL (0.00-1.30)
[2024-11-19 13:13] LABS: CRP < 3.00 mg/L (0.0-3.0)
== END | disposition home or self-care (01) ==
LOC: BFHLAB 09:03
PROVIDERS: PCP Family Medicine; Visit Provider Family Medicine
DX: L03.90 Cellulitis, unspecified (principal); Z98.890 Other specified postprocedural states; Z86.79 Personal history of other diseases of the circulatory system
CPT/HCPCS: 36415; 80053; 85025; 85652; 86140

== ENCOUNTER → 2024-11-19 | Outpatient (CLI) | payer MEDICARE, OTHER, SELFPAY ==
--- NOTE | 2024-11-19 08:20 | BI_ITS ---
EXAM: SCRN MAMM (CAD)W/PAUL BILAT DATE: 11/19/2024 CLINICAL HISTORY: F, Age 74 y/o , SCREENING BREAST CANCER RISK ASSESSMENT: Not calculated at this time. TECHNIQUE: Bilateral screening digital breast tomosynthesis with 2D and 3D images. Computer aided detection. COMPARISON: Prior exam(s) dated 08/08/2022, 04/05/2018. FINDINGS: TISSUE DENSITY: The breast tissue is composed of scattered areas of fibroglandular density. Bilateral Breast Mammographic Findings: There is an asymmetry with associated distortion in the superior right breast at middle depth visualized on the MLO view. No significant masses, calcifications or other abnormalities are identified in the left breast. BI/SCRN MAMM (CAD)W/PAUL BILAT IMPRESSION: The asymmetry with associated distortion in the superior right breast at middle depth requires further evaluation. Recommend diagnostic mammogram of the right breast and ultrasound on the day of diagnosti c if indicated. OVERALL FINAL ASSESSMENT BI-RADS 0: INCOMPLETE - NEED ADDITIONAL IMAGING EVALUATION. RECOMMENDATION: Additional Views obtained/call backs A letter with findings and recommendations will be mailed to the patient. Reading Location: [id number]
== END | disposition home or self-care (01) ==
LOC: OPBI 08:19
PROVIDERS: PCP Family Medicine; Referring Provider Family Medicine; Visit Provider Family Medicine
DX: Z12.31 Encounter for screening mammogram for malignant neoplasm of breast (principal)
CPT/HCPCS: 77063; 77067

== ENCOUNTER → 2024-11-24 | Outpatient (CLI) | payer MEDICARE, OTHER, SELFPAY ==
--- NOTE | 2024-11-24 12:41 | US_ITS ---
PROCEDURE: BREAST LIMITED UNILATERAL 11/24/2024 REASON FOR EXAM: F, Age 74 y/o , ABN MAMM Inconclusive mammogram. Right breast mass. Evaluate. COMPARISON: Mammogram studies dated 11/24/2024, 11/19/2024, and 08/08/2022. TECHNIQUE: BREAST LIMITED UNILATERAL FINDINGS: There is a solid, hypoechoic, irregularly marginated, spiculated mass in the right breast of the 10 o'clock, 9 cm from nipple position measuring 8 x 7 x 6 mm. There is blood flow along the periphery. This mass does correlate to the mass seen on the mammogram. The masses worrisome for malignancy. Biopsy is warranted. The axillary region was scanned and demonstrates a benign-appearing axillary lymph node measuring 18 x 17 x 4 mm. The cortex is thin. It does have a cystic component within it. The patient wanted to stop the exam at this time therefore no additional imaging was obtained. US/Breast Limited Unilateral IMPRESSION: The solid mass in the right breast warrants biopsy in order to completely exclu de a malignancy. BI-RADS 5: HIGHLY SUGGESTIVE OF MALIGNANCY. RECOMMENDATION: Biopsy Recommended Reading Location: [id number]
--- NOTE | 2024-11-24 12:41 | BI_ITS ---
EXAM: DIAG MAMM W/CAD, UNILAT 11/24/2024 CLINICAL HISTORY: F, Age 74 y/o , ABN MAMM. Inconclusive screening mammogram dated 11/19/2024 showed an asymmetry with associated distortion in the superior aspect of the right breast. Evaluate. TECHNIQUE: DIAG MAMM W/CAD, UNILAT. COMPARISON: Prior exam(s) dated 11/19/2004 and 08/08/2022. FINDINGS: TISSUE DENSITY: The breast tissue is composed of scattered areas of fibroglandular density. Bilateral Breast Mammographic Findings: The asymmetry with associated distortion in the superior aspect of the right breast, at the middle depth, on the prior MLO study does persist on today's exam and does not disperse. This has mass effect. This mass measures approximately 8 mm in size. There is associated distortion. It has somewhat of a spiculated appearance. Further workup with ultrasound will be performed for further evaluation. BI/DIAG MAMM W/CAD, UNILAT IMPRESSION: The mass in the right breast will be further worked up with ultrasound. Please see that report. OVERALL FINAL ASSESSMENT BI-RADS 0: INCOMPLETE - NEED ADDITIONAL IMAGING EVALUATION. RECOMMENDATION: Ultrasound Recommended A letter with findings and recommendations will be mailed to the patient. Reading Location: [id number]
== END | disposition home or self-care (01) ==
LOC: OPBI 12:39
PROVIDERS: PCP Family Medicine; Referring Provider Family Medicine; Visit Provider Family Medicine
DX: R92.8 Other abnormal and inconclusive findings on diagnostic imaging of breast (principal)
CPT/HCPCS: 76642; 77065

== ENCOUNTER → 2024-12-26 | Outpatient (CLI) | payer MEDICARE, OTHER, SELFPAY ==
--- NOTE | 2024-12-26 11:46 | US_ITS ---
PROCEDURE: US BREAST BIOPSY 1ST LESION 12/26/2024 REASON FOR EXAM: F, Age 74 y/o , RIGHT BREAST MASS Ultrasound-guided breast biopsy. TECHNIQUE: US BREAST BIOPSY 1ST LESION COMPARISON: Prior exam(s) dating back to November 24, 2024.. FINDINGS: Under direct sonographic guidance, the surgeon performed core biopsies of the 4 mm x 6 mm x 8 mm spiculated nodule at the 10 o'clock position of the breast at 9 cm from the nipple. US/US Breast Biopsy 1st Lesion IMPRESSION: OVERALL FINAL ASSESSMENT: BIRADS 11 WAITING PATHOLOGY RECOMMENDATION: Incomplete. Waiting on pathology results. Reading Location: [id number]
--- NOTE | 2024-12-26 12:40 | BRBX_PTH ---
PATIENT: CARLA HARRISON LOC: [facility] U#:[id number] AGE/SX: 74/F ROOM: RE12/26/[address]: Magalie Ribeiro PA-C : 1950 BED: DIS: 12/26/2024 SPEC #: [id number] RECD: 12/26/24 13:03 STATUS: RACHAEL REPartha #: [id number] SALAS: 12/26/24 12:[address]: Magalie Ribeiro DEPT: SURGICAL PATHOLOGY RECD BY: Asael Williamson ENTERED: 12/26/24 13:51 SP TYPE: BREAST BX OT DR: Dr. Mary Smith DO Tissues: A - Right breast, NOS Procedures: Immunohistochemical Stains Surgery Specimen Level IV IHC Stain ADDITIONAL HEADER OPERATION: Ultrasound guided right breast core biopsy PRE-OP DIAGNOSIS: Right breast mass TISSUE SUBMITTED: A- Right breast mass - 10o'clock, 9cm from nipple MICROSCOPIC DIAGNOSIS A. Breast, right, "mass 10:00, 9 CMFN", ultrasound-guided core biopsy: - Invasive lobular carcinoma, Grade 2 (tubule 3, nuclear 2, mitosis 1), at least 0.9 cm - Focal atypical lobular neoplasia - ER: positive (95%, strong intensity) - TN: positive (90%, strong intensity) - [id number]: PENDING at [facility], to be reported in an addendum. - Ki67: 15% MICROSCOPIC DESCRIPTION Slides are reviewed. All matched controls reacted appropriately. These tests were developed and their performance characteristics determined by [facility]. They may not have been cleared or approved by the U.S. Food and Drug Administration. The FDA has determined that such clearance or approval is not necessary. The above immunohistochemical/dualISH markers are reviewed by the Pathologist. GROSS DESCRIPTION A. Received in formalin labeled with the patient's name and date of . Designated as " right breast" are 3 fragmented, steele-yellow tissue cores, 1.4 cm to 1.8 cm in length by 0.1 cm in diameter. Entirely submitted in 1 cassette. Cold ischemic time: < 1 minuteFormalin fixation time: 54 hours, 50 minutes OK 12/26/2024 CPT:86149,[id number],[id number],65212p9 ADDENDUM ADDENDUM ADDENDUM ADDENDUM ADDENDUM ADDENDUM ADDENDUM ADDENDUM ADDENDUM ADDENDUM ADDENDUM ADDENDUM ADDENDUM ADDENDUM ADDENDUM ADDENDUM 01/01/2025 09:47 ADDENDUM 01/01/2025 09:47 ADDENDUM 01/01/2025 09:47 ADDENDUM 01/08/2025 11:13 ADDENDUM 01/01/2025 09:47 ADDENDUM 01/01/2025 09:47 A. This addendum is to report the result of the AEX4SDH performed at [facility]: XCQ1VZF: 2+ ZIQ2WYIL: pending, to be reported in a subsequent addendum. All controls show appropriate reactivity. (HER2) All immunohistochemistry, in situ hybridization, and histochemical tests were developed by and are performed at the [facility], [address], [place] [address], [place] [address]. All Immunofluorescent (IF) tests were developed by and are performed at the [facility], [address], [place] [address]. All tests reported here, except those addressing HER2 overexpression as a predictive marker, have not been cleared by or approved by the [place] Food and Drug Administration (FDA). The laboratory is regulated under CLIA as qualified to perform high-complexity testing. The tests are used for clinical purposes. They should not be regarded as investigational or for research. This addendum is added to incorporate an outside pathology consultation report. The case was examined at [facility] by Dr. Stratton (#[id number]) and the following diagnosis was rendered. A. Breast, right, mass 10:00, 9cmfn, ultrasound-guided core biopsy: HER2/FISH : Negative HER2 SCORE REPORT - A1: HER2 SCORE: NEGATIVE HER2 / CEP17 RATIO: 1.0 HER2 COPY NUMBER / CELL: 2.9 Please see complete above mentioned consultation report in EMR
--- NOTE | 2024-12-26 12:45 | OP.PCM_ITS ---
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 An area lateral to this was prepped and draped. The skin was injected with local anesthetic and a small louise was made with a scalpel. A 14-gauge biopsy needle was placed into the mass under ultrasound guidance several times for biopsy and then a clip was placed. Dressings were placed and a mammogram was obtained. Patient tolerated the procedure well. Surgical Findings: None Complications Complications: No
== END | disposition home or self-care (01) ==
PROVIDERS: PCP Family Medicine; Referring Provider Physician Assistant; Visit Provider Physician Assistant
DX: C50.411 Malignant neoplasm of upper-outer quadrant of right female breast (principal); Z17.0 Estrogen receptor positive status [ER+]; Z17.21 Progesterone receptor positive status
CPT/HCPCS: 19083; 88305; 88341; 88342

== ENCOUNTER → 2025-01-27 | Outpatient (CLI) | payer MEDICARE, OTHER, SELFPAY ==
--- NOTE | 2025-01-27 | MRI_ITS ---
PROCEDURE: BREAST BILATERAL W/O AND W 01/27/2025 REASON FOR EXAM: 74-year-old female presents for MRI, due to recently diagnosed INVASIVE LOBULAR CARCINOMA OF RIGHT BREAST. TECHNIQUE: BREAST BILATERAL W/O AND W CONTRAST: 17 mL of IV Clariscan COMPARISON: Mammogram and ultrasound 12/26/2024, 11/24/2024, 11/19/2024 FINDINGS: TISSUE DENSITY: There are scattered areas of fibroglandular density. Background Parenchymal Enhancement: Mild RIGHT Breast: There is an irregular enhancing mass with an associated biopsy marker clip in the upper-outer right breast at middle depth, at 10 o'clock 9 cm from the nipple, measuring 0.9 x 0.6 x 0.7 cm AP by TR by CC (series 9, image 52). This mass correlates to the biopsy-proven invasive lobular carcinoma. Otherwise, there are no additional suspicious enhancing masses or areas of non-mass enhancement in the right breast. LEFT Breast: No suspicious mass or non-mass enhancement. Other Findings: No suspicious axillary or internal mammary lymph nodes. Visualized portions of the thoracic and abdominal viscera are unremarkable. MRI/Breast Bilateral W/O and W IMPRESSION: Irregular enhancing mass in the right breast at 10 o'clock measuring up to 0.9 cm is consistent with the biopsy-proven invasive lobular carcinoma. OVERALL FINAL ASSESSMENT BI-RADS 6: KNOWN BIOPSY-PROVEN MALIGNANCY. RECOMMENDATION: OTHER appropriate clinical/surgical management is recommended Reading Location: [id number]
== END | disposition home or self-care (01) ==
LOC: MRI 10:42
PROVIDERS: PCP Family Medicine; Referring Provider Surgery; Visit Provider Surgery
DX: R92.8 Other abnormal and inconclusive findings on diagnostic imaging of breast (principal); C50.912 Malignant neoplasm of unspecified site of left female breast
CPT/HCPCS: 77049; A9575; A4216; C8908

== ENCOUNTER 2025-02-10 09:03 | Day surgery (SDC) | payer MEDICARE, OTHER, SELFPAY ==
--- NOTE | 2025-02-05 15:37 | PAT.ANESEVAL ---
Pre-Assessment Diagnosis/Proposed Procedure Planned Operative Procedure(s): (R) Breast, Stereo wire loc right Lumpectomy,[place] Node,poss Ax Dis, blue dye & radiotracer Anesthesia History Anesthesia History - criminal intelligence specialist: Anesthesia History - criminal intelligence specialist Hx Hospitalization Yes: CRANIOTOMY 02/05/25 09:38 Any Problems With Anesthesia No 02/05/25 09:38 Cholinesterase deficiency No 02/05/25 09:38 You/Your Family Experience No 02/05/25 09:38 fever (hyperthermia) with Relationship Recent Exposure to Contagious No 02/05/24 07:17 Disease Does patient have nerve No 02/05/25 09:38 stimulator Patient instructed to have device shut off --Does patient have Pacemaker or ICD? When Was Last Pacemaker Check QUESTION #4 FULL TEXT: You/Your Family Experience fever (hyperthermia) with Anesthesia Last Oral Intake Last Oral intake: Last Oral Intake NPO since Meds taken in AM with sips of water? Meds patient instructed to take am of surgery PONV PONV - criminal intelligence specialist: PONV - criminal intelligence specialist Female Yes 02/05/25 09:38 HX of Motion Sickness No 02/05/25 09:38 HX of N/V After Surgery No 02/05/25 09:38 Non-Smoker Yes 02/05/25 09:38 Duration of Surgery greater Yes 02/05/25 09:38 than 60 minutes Number of Risk Factors 3 02/05/25 09:38 PONV Score Moderate Risk 02/05/25 09:38 Height & Weight Height & Weight: Anesthesia: Height & Weight Height 5 ft 7 in 12/15/24 08:11 Respiratory Assessment Respiratory Assessment - criminal intelligence specialist: Respiratory Tract Infection Hx - criminal intelligence specialist Hx Respiratory Tract Infection No 02/05/25 09:38 STOP Sleep Apnea STOP Sleep Apnea - criminal intelligence specialist: STOP Sleep Apnea - criminal intelligence specialist Hx Hypertension No 02/05/25 09:38 Hx Sleep Apnea No 02/05/25 09:38 CPAP No 02/05/25 09:38 BIPAP No 02/05/25 09:38 Do you snore loudly (louder No 02/05/25 09:38 than talking or can be heard Do you often feel tired/ No 02/05/25 09:38 fatigued/ sleepy during daytime? Has anyone observed you stop No 02/05/25 09:38 breathing during sleep? STOP Results Negative 02/05/25 09:38 QUESTION #5 FULL TEXT : Do you snore loudly (louder than talking or can be heard through closed doors)? 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 Specify any problems Hx of Preganancy in last 3 No 02/05/25 09:38 Months Nurse Filling Out Transfusion VCHRISTIN 02/05/25 09:38 & Questions: Date: 02/05/25 02/05/25 09:38 Time: 09:40 02/05/25 09:38 Patient unable to answer at this time (ie. 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 Personal history of colonic polyps Wears glasses Open wound Migraines Brain bleed Wears dentures Alcohol use Arthritis Anemia Easy bruising Restless legs Back pain Seizures History of GI bleed History of diverticulitis Gastric reflux Former smoker History of stress test History of muscle spasm Leg cramps Duodenal ulcer GI bleed Home Medications ?Medication ?Instructions ?Recorded ?Last Taken ?Type baclofen 10 mg tablet 10 mg PO TID PRN Muscle Spasm 30 08/06/24 Unknown Rx days #90 tabs pantoprazole 40 mg tablet,delayed 40 mg PO DAILY 30 days #30 tabs 08/06/24 Unknown Rx release cholecalciferol (vitamin D3) 25 25 mcg PO DAILY 02/05/25 Unknown History mcg (1,000 unit) capsule (Vitamin D3) gabapentin 100 mg capsule 100 mg PO DAILY PRN neuropathic 02/05/25 Unknown History pain magnesium 250 mg tablet 250 mg PO DAILY 02/05/25 Unknown History potassium gluconate 595 mg (99 mg) 595 mg PO DAILY 02/05/25 Unknown History tablet turmeric 400 mg capsule 400 mg PO DAILY 02/05/25 Unknown History Allergy/AdvReac Type Severity Reaction Status Date / Time acetaminophen (From Tylenol) Allergy Severe Other Verified 02/05/25 09:22 Penicillins Allergy Rash Verified 02/05/25 09:22 prednisone Allergy Rash Verified 02/05/25 09:22 ibuprofen AdvReac Bleeding Verified 02/05/25 09:22 Family History Mother Colon cancer Hx of colectomy Father Colon cancer Aunt Colon cancer Uncle Colon cancer Grandfather Colon cancer Other Heart disease Surgical History (Updated 02/05/25 @ 09:37 by Nereida Ni) Hx of colonoscopy History of craniotomy History of partial colectomy Hx of cystoscopy History of ERCP History of incisional hernia repair History of common bile duct surgery History of cholecystectomy Hx of colonoscopy Hx of esophagogastroduodenoscopy S/P tubal ligation Status post craniotomy S/P wrist surgery Social History household members: none and other housing: care home current occupational status: retired Smoking Status: Former smoker alcohol intake: never substance use type: does not use Audit: Pertinent Findings Pertinent Findings EKG Perinent findings: July 14, 2024. Sinus rhythm with occasional PVCs. Right bundle branch block. T wave abnormality consider inferior ischemia. T wave abnormality in inferior leads seen as far back as May 10, 2021 prior to stress test (see below). Stress test pertinent findings: June 01, 2021. No EKG or echocardiogenic criteria for ischemia at a moderate workload. Resting EF of 60% which improved to 70% with stress. Recommendation Anesthesia Recommendation Anesthesia recommendation: OPTIMIZED for anesthesia
[2025-02-10] VITALS (10 sets, daily range): BP systolic 90–107; BP diastolic 43–64; PULSE 85–97; RESP 16–18; TEMP 36.1–36.7; O2SAT 90–97; BMI 28.5
[2025-02-10] MEDS: Lactated Ringers 1,000 ML 15 ML IV (09:40)
--- NOTE | 2025-02-10 10:07 | PRE.ANES_ITS ---
ASA Classification* ASA Classification ASA Classification: 3 Assessment & Plan Anesthesia* Anesthesia Assessment Anesthesia Assessment: Discussed sedation and/or anesthesia options, risks, benefits, and alternatives with patient/parents/legal guardian/POA. Questions invited. The patient/parents/legal guardian/POA seems to understand and agrees to proceed with anesthesia plan. Reviewed the physical assessment, medical history, allergy history and patient home medications list prior to surgery/procedure/anesthetic and documented any changes. Performed airway and anesthesia risk assessments. Anesthesia Type Anesthesia Type: General (No toradol or prednisone. Preop neurological exam within normal limits. ) History Source History Obtained from:: Patient and Chart Anesthesia Focused Assessment* Temperature: 97.4 F Pulse Rate: 85 Blood Pressure: 104/64 Respiratory Rate: 18 Pulse Ox: 97 Oxygen Delivery Method: Room Air Airway Assessment Mouth opens: >3 cm Mallampati Score: III Teeth Condition: Missing (uppers) and Partial Neck Range of motion (ROM): Full ROM Labs Anesthesia Preop lab: CBC WBC 5.1 K/mm3 (4.4-11.0) 11/19/24 09:03 11/19/24 RBC 4.11 M/mm3 (4.2-5.4) L 11/19/24 09:03 11/19/24 Hgb 9.8 g/dL (12.0-15.0) L 11/19/24 09:03 11/19/24 Hct 32.8 % (37-47) L 11/19/24 09:03 11/19/24 Plt Count 220 K/mm3 (150-450) 11/19/24 09:03 11/19/24 CHEMISTRY Potassium 4.5 mmol/L (3.3-5.1) 11/19/24 09:03 11/19/24 Sodium 141 mmol/L (133-145) 11/19/24 09:03 11/19/24 Magnesium 2.1 mg/dL (1.5-2.2) 10/21/24 07:10 10/21/24 Phosphorus 4.1 mg/dL (2.5-4.9) 07/15/24 03:13 07/15/24 BUN 15 mg/dL (4-19) 11/19/24 09:03 11/19/24 Creatinine 0.72 mg/dL (0.70-1.20) 11/19/24 09:03 11/19/24 Glucose 115 mg/dL (70-99) H 11/19/24 09:03 11/19/24 POC Glucose 100 mg/dL (74-106) 07/14/24 14:23 07/14/24 TSH 1.75 uIU/mL (0.358-3.74) 02/02/22 09:16 COAG PT 18.0 SECONDS (11.7-14.9) H 07/14/24 14:25 07/05 Pre-Assessment Diagnosis/Proposed Procedure Planned Operative Procedure(s): (R) Breast, Stereo wire loc right Lum pectomy,[place] Node,poss Ax Dis, blue dye & radiotracer Anesthesia History Anesthesia History - nurse advocate: Anesthesia History - nurse advocate Hx Hospitalization Yes: CRANIOTOMY 02/05/25 09:38 Any Problems With Anesthesia No 02/05/25 09:38 Cholinesterase deficiency No 02/05/25 09:38 You/Your Family Experience No 02/05/25 09:38 fever (hyperthermia) with Relationship Recent Exposure to Contagious No 02/10/25 09:37 Disease Does patient have nerve No 02/05/25 09:38 stimulator Patient instructed to have device shut off --Does patient have Pacemaker No 02/10/25 09:37 or ICD? When Was Last Pacemaker Check QUESTION #4 FULL TEXT: You/Your Family Experience fever (hyperthermia) with Anesthesia Any additional information?: No Last Oral Intake Last Oral intake: Last Oral Intake NPO since 05:30 02/10/25 09:37 Meds taken in AM with sips of Yes 02/10/25 09:37 water? Meds patient instructed to take am of surgery Any additional information?: No PONV PONV - nurse advocate: PONV - nurse advocate Female Yes 02/05/25 09:38 HX of Motion Sickness No 02/05/25 09:38 HX of N/V After Surgery No 02/05/25 09:38 Non-Smoker Yes 02/05/25 09:38 Duration of Surgery greater Yes 02/05/25 09:38 than 60 minutes Number of Risk Factors 3 02/05/25 09:38 PONV Score Moderate Risk 02/05/25 09:38 Any additional information?: No Height & Weight Height & Weight: Anesthesia: Height & Weight Height 5 ft 7 in 02/10/25 09:37 Weight: 82.6 kg 02/10/25 09:37 Body Mass Index (BMI) 28.5 02/10/25 09:37 Respiratory Assessment Respiratory Assessment - nurse advocate: Respiratory Tract Infection Hx - nurse advocate Hx Respiratory Tract Infection No 02/05/25 09:38 Any additional information?: No STOP Sleep Apnea STOP Sleep Apnea - nurse advocate: STOP Sleep Apnea - nurse advocate Hx Hypertension No 02/05/25 09:38 Hx Sleep Apnea No 02/05/25 09:38 CPAP No 02/05/25 09:38 BIPAP No 02/05/25 09:38 Do you snore loudly (louder No 02/05/25 09:38 than talking or can be heard Do you often feel tired/ No 02/05/25 09:38 fatigued/ sleepy during daytime? Has anyone observed you stop No 02/05/25 09:38 breathing during sleep? STOP Results Negative 02/05/25 09:38 QUESTION #5 FULL TEXT : Do you snore loudly (louder than talking or can be heard through closed doors)? 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 Specify any problems Hx of Preganancy in last 3 No 02/05/25 09:38 Months Nurse Filling Out Transfusion VCHRISTIN 02/05/25 09:38 & Questions: Date: 02/05/25 02/05/25 09:38 Time: 09:40 02/05/25 09:38 Patient unable to answer at this time (ie. confused, unrespo Any additional information?: No /Reproduction History /Reproductive History - nurse advocate: /Reproductive Hx- nurse advocate Hx Now No 02/05/25 09:38 Gestational Age (in weeks): EDC: Hx Hx Para Hx Section SAB No 02/05/25 09:38 Any additional information?: No Active Medications Active Medications: Current Medications Generic Name Dose Route Start Last Admin Trade Name Freq PRN Reason Stop Dose Admin Clindamycin Phosphate 900 mg in 50 mls @ 75 mls/hr 02/10/25 12:00 Cleocin IV 02/10/25 12:39 INTRAOP ONE Lactated Ringer's 1,000 mls @ 15 mls/hr 02/10/25 09:15 02/10/25 09:40 IV 15 mls/hr .Q48H JACQUELINE Administration PFSH Medical History (Updated 02/05/25 @ 09:37 by Nereida Ni) Wears partial dentures Post-menopausal Injury of head and neck History of ulceration History of echocardiogram Lobular carcinoma of left breast Abnormal ultrasound of breast Abnormal mammogram of left breast Thrombocytopenia Dysequilibrium Dysarthria Nontraumatic chronic subdural hemorrhage Personal history of colonic polyps Wears glasses Open wound Migraines Brain bleed Wears dentures Alcohol use Arthritis Anemia Easy bruising Restless legs Back pain Seizures History of GI bleed History of diverticulitis Gastric reflux Former smoker History of stress test History of muscle spasm Leg cramps Duodenal ulcer GI bleed Home Medications ?Medication ?Instructions ?Recorded ?Last Taken ?Type baclofen 10 mg tablet 10 mg PO TID PRN Muscle Spas m 30 08/06/24 02/09/25 15:00 Rx days #90 tabs pantoprazole 40 mg tablet,delayed 40 mg PO DAILY 30 da ys #30 tabs 08/06/24 02/10/25 05:30 Rx release cholecalciferol (vitamin D3) 25 25 mcg PO DAILY 02/09/25 History mcg (1,000 unit) capsule (Vitamin D3) gabapentin 100 mg capsule 100 mg PO DAILY PRN neuropat hic 02/05/25 02/09/25 15:00 History pain magnesium 250 mg tablet 250 mg PO DAILY 02/05/25 Unk nown History potassium gluconate 595 mg (99 mg) 595 mg PO DAILY 09/2602/09/25 15:00 History tablet turmeric 400 mg capsule 400 mg PO DAILY 02/05/2501/26 07:07 History Allergy/AdvReac Type Severity Reaction Status Date / Time acetaminophen (From Tylenol) Allergy Severe Other Verified 02/10/25 09:36 Penicillins Allergy Rash Verified 02/10/25 09:36 prednisone Allergy Rash Verified 02/10/25 09:36 ibuprofen AdvReac Bleeding Verified 02/10/25 09:36 Family History Mother Colon cancer Hx of colectomy Father Colon cancer Aunt Colon cancer Uncle Colon cancer Grandfather Colon cancer Other Heart disease Surgical History Hx of colonoscopy History of craniotomy History of partial colectomy Hx of cystoscopy History of ERCP History of incisional hernia repair History of common bile duct surgery History of cholecystectomy Hx of colonoscopy Hx of esophagogastroduodenoscopy S/P tubal ligation Status post craniotomy S/P wrist surgery Social History household members: none and other housing: skilled nursing current occupational status: retired Smoking Status: Former smoker alcohol intake: never substance use type: does not use Addt'l Information Additional Findings: Hx Brain bleeds (patient unsure of etiology) 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 Last seizure 2011, hasnt had one since, not on any antiepileptics. Patient states she had partial gastrectomy or stomach ulcer. Review of Systems (Anesthesia) ROS Narrative System reviewed and no additional complaints, except as documented. Physical Exam Const alert, oriented x3 and average body habitus Orientation / Consciousness: awake
--- NOTE | 2025-02-10 10:21 | NM_ITS ---
PROCEDURE: LYMPH NODE INJECTION ONLY 02/10/2025 REASON FOR EXAM: LOBULAR CARCINOMA OF RIGHT BREAST TECHNIQUE: Procedure Code: [id number] Modality: NM Procedure: [place] node imaging. 581 uCi of Lymphoseek was injected in the subdermal region of the right periareolar region, approximately 1 cm above the right nipple. COMPARISON: None. FINDINGS: Subdermal injection of mCi of Lymphoseek for right sentinel node imaging. NM/Lymph Node Injection Only IMPRESSION: Subdermal injection of mCi of Lymphoseek in the subdermal region of the right p eriareolar area for sentinel node imaging. Reading Location: [place] [id number]
--- NOTE | 2025-02-10 10:45 | HP.PCM_ITS ---
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 Required: No Is patient in pain?: No Allergies Penicillins Allergy (Verified 01/06/25 15:02) Rashprednisone Allergy (Verified 01/06/25 15:02) Rashibuprofen Adverse Reaction (Verified 01/06/25 15:02) Bleeding Medications ?Medication ?Instructions ?Recorded ?Confirmed ?Type acetaminophen 500 mg tablet 1,000 mg (2 x 500 mg) PO Q6H PRN 5 01/06/25 Rx PRN headache #0 tabs baclofen 10 mg tablet 10 mg PO TID PRN Muscle Spasm 30 5 01/06/25 Rx days #90 tabs pantoprazole 40 mg tablet,delayed 40 mg PO DAILY 30 days #30 tabs 08/06/24 01/06/25 Rx release Have you fallen in the past year?: No PFSH Medical History (Updated 01/06/25 @ 15:[address] Ole Gray MD) Lobular carcinoma of left breast Abnormal ultrasound of breast Abnormal mammogram of left breast Thrombocytopenia Dysequilibrium Dysarthria Nontraumatic chronic subdural hemorrhage Personal history of colonic polyps Wears glasses Open wound Migraines Brain bleed Wears dentures Alcohol use Arthritis Anemia Easy bruising Restless legs Back pain Seizures History of GI bleed History of diverticulitis Gastric reflux Former smoker History of stress test History of muscle spasm Leg cramps Duodenal ulcer GI bleed Surgical History History of craniotomy History of partial colectomy Hx of cystoscopy History of ERCP History of incisional hernia repair History of common bile duct surgery History of cholecystectomy Hx of colonoscopy Hx of esophagogastroduodenoscopy S/P tubal ligation Status post craniotomy S/P wrist surgery Family History Mother Colon cancer Hx of colectomyFather Colon cancerAunt Colon cancerUncle Colon cancerGrandfather Colon cancerOther Heart disease Social History household members: none and other housing: intermediate current occupational status: retired Smoking Status: Former smoker alcohol intake: never substance use type: does not use HPI HPI HPI: Patient is a 74-year-old female with invasive lobular carcinoma of the right breast. ROS General General: No weight change, appetite, fatigue, colon cancer, breast cancer or weakness HEENT HEENT: No difficulty swallowing, eye injury, eye surgery, swollen glands or hoarseness Endo Endocrine: No thyroid disease, diabetes mellitus, thyroid cancer, Hair loss, heat intolerance or cold intolerance Skin Skin: No rash or changing moles Musc Musculoskeletal: Yes arthritis; No back problems, rheumatoid arthritis, gout or joint pain Cardio Cardiovascular: No murmur, pacemaker, heart disease, atrial fibrillation, high blood pressure, heart attack, heart stent, palpitations, shortness of breath with exertion or chest pain Psych Psychiatric: No depression, anxiety or hearing voices Resp Respiratory: No shortness of breath, No sleep apnea, No cough, No COPD, No asthma, No emphysema and No wheezing Gastro Gastrointestinal: Yes abdominal pain Reji Hematologic: No blood thinners, No blood disorders, No bleeding, No anemia and No blood clots Neuro Neurologic: Yes numbness, Yes tingling and No weakness Exam Const General: cooperative Orientation: alert and oriented x3 HENMT Head: normal to inspection Neck Neck: normal visual inspection and full ROM Chest Chest palpation & inspection: normal inspection of the chest Resp Effort & Inspection: normal respiratory effort Auscultation: clear to auscultation bilaterally Cardio Rate: regular rate Rhythm: regular rhythm GI Inspection: non-distended Palpation: soft and nontender Skin General: no rashes or lesions noted Neuro General: patient alert and patient oriented x3 Extrem General: full ROM Psych Appearance: grossly normal Mental Status: mental status grossly normal Assessment and Plan Assessment and Plan (1) Lobular carcinoma of right female breast: Status: Acute Plan: The patient had ultrasound-guided biopsy of the right breast which revealed invasive lobular carcinoma. This was a BI-RADS 5 lesion. I discussed performing an MRI to evaluate for other lesions and then performing partial mastectomy with sentinel lymph node biopsy as well as stereo wire localization. I discussed this with her in detail as well as her sister. I discussed the procedure in detail as well as the risks including but not limited to bleeding, infection, injury other organ such as the nerves or blood vessels in the axilla or need for further surgery for positive margins or positive lymph nodes. Patient understands the risks and is willing to proceed. I will schedule her for surgery after I get her MRI results. Ole Gray MD Pager: [facility] [address] [place] [address] [address] [place] [address] Office: I have examined the patient and the H&P has been reviewed. There are no clinical changes since date of exam.
--- NOTE | 2025-02-10 10:51 | BI_ITS ---
EXAM: BREAST BIOPSY SPECIMEN 02/10/2025 CLINICAL HISTORY: F, Age 74 y/o, surgical specimen. TECHNIQUE: Procedure Code: BIB Modality: MG Procedure: BREAST BIOPSY SPECIMEN COMPARISON: Prior exam(s) dated November 19, 2024.. FINDINGS: TISSUE DENSITY: The breasts are extremely dense, which lowers the sensitivity of mammography Bilateral Breast Mammographic Findings: The tissue clip marker and the localization wire are seen within the specimen. BI/Breast Biopsy Specimen IMPRESSION: OVERALL FINAL ASSESSMENT: BIRADS 6: Known Biopsy-Proven Malignancy. RECOMMENDATION: Routine annual follow-up in 1 Year A letter with findings and recommendations will be mailed to the patient. Reading Location: [id number]
[2025-02-10] MEDS: 0.9% Saline Lock 10 ML Syringe IV (10:57)
--- NOTE | 2025-02-10 12:00 | BREAST_PTH ---
PATIENT: CARLA HARRISON LOC: [facility] U#:[id number] AGE/SX: 74/F ROOM: RE02/10/[address]: Dr. Ole Gray MD : 1950 BED: DIS: 02/10/2025 SPEC #: [id number] RECD: 02/10/25 12:52 STATUS: RACHAEL REPartha #: [id number] SALAS: 02/10/25 12:[address]: Ole Gray DEPT: SURGICAL PATHOLOGY RECD BY: Asael Williamson ENTERED: 02/10/25 14:48 SP TYPE: BREAST OTHR DR: Dr. Mary Smith DO Tissues: A - Lymph node, NOS B - Right breast, NOS Procedures: Frozen Section (charge) Immunohistochemical Stains Surgery Specimen Level V IHC Stain ADDITIONAL HEADER OPERATION: Breast, stereo wire localization right lumpectomy, sentinel lymph node PRE-OP DIAGNOSIS: Lobular carcinoma of right female breast TISSUE SUBMITTED: A- George lymph node- right breast, B- Right breast mass *short stitch- superior, long stitch- lateral* FROZEN SECTION DIAGNOSIS A. Lymph node, sentinel, excision: Negative for macrometastasis. 02/10/2025 MICROSCOPIC DIAGNOSIS A. George lymph node, right breast, excision: - Negative for metastasis. - IHC for pankeratin supports the histologic impression. B. Right breast, mass, wire localization lumprectomy: - Invasive lobular carcinoma, Grade 2 (tubule 3, nuclear 2, mitosis 1), at least 0.9 cm. - Surgical margins free. - Lobular carcinoma in situ (LCIS), surgical margins free. - See Synoptic Report. SYNOPTIC REPORT FOR INVASIVE BREAST CARCINOMA Specimen (P=partial, M=mastectomy):?P Laterality (R=right, L=left):?R Focality (U=unifocal, M=multifocal):?U Tumor size (cm): at least?0.9 cm (from biopsy [id number]) Histologic type:?invasive lobular carcinoma Histologic grade:?2 ??? Tubule score (1-3):?3 ??? Nuclear score (1-3):?2 ??? Mitotic score (1-3):?1 Skin, nipple epidermis, skeletal muscle (I=involved, N=negative, NA=not applicable):?NA Lymphovascular invasion (E=extensive, F=focal, N=not identified):?N Margins of main specimen (P=positive, N=negative):?N Distance to closest margin of main specimen (mm):?2 Designation of closest margin of main specimen:?inferior Designation of other margins of main specimen </=1 mm:?NA Re-resection margin status (P=positive, N=negative, NA=not applicable):?NA ? DCIS (P=present, N=not identified):?N LCIS (P=present, N=not identified: P ? Regional lymph nodes: ?? Total number of lymph nodes:?1 ?? Number of sentinel lymph nodes:?1 ?? Number with macrometastases:?0 ?? Number with micrometastases:?0 ?? Number with isolated tumor cells:?0 ?? Size of largest khalif metastasis (mm):?NA ?? Size of extranodal extension (mm) (N=not identified):?N ? Estrogen receptor:?positive (95%, strong intensity) Progesterone receptor:?positive (90%, strong intensity) HER2 IHC:?equivocal (2+) HER2 FISH:?negative Ki67: 15% Specimen in which ER/MS/HER2/Ki67 performed:?[id number] pTNM:?pT1 pN0 Additional findings:?None Comment:?The pT1 subcategory cannot be determined. The tumor measures at least 0.9 cm in the biopsy ([id number]) and at least 0.7 cm in the current lumpectomy. The tumor cells are negative for Ecadherin, supporting the diagnosis of lobular carcinoma. CK5/6 highlights the myoepithelium encircling the lobular carcinoma in situ. A radiograph of the breast specimen was performed to assist in the sectioning of the specimen and the image was reviewed and correlated with the histological findings. ? The above synoptic report complies, in slightly modified form, with the guidelines of the [employer] [place] [employer] and the Association of Directors of Anatomic and Surgical Pathology for the reporting of cancer specimens MICROSCOPIC DESCRIPTION Slides are reviewed. Slides are reviewed. All matched controls reacted appropriately. These tests were developed and their performance characteristics determined by [facility]. They may not have been cleared or approved by the U.S. Food and Drug Administration. The FDA has determined that such clearance or approval is not necessary. The above immunohistochemical markers and/or special stains have been reviewed by the Pathologist. GROSS DESCRIPTION A. Received fresh labeled with the patient's name and date of . Designated as sentinel lymph node is a 1.1 x 1.1 x 0.4 cm lymph node with attached soft tissue. The lymph node is trisected revealing gritty cut surfaces. Touch preparations are made. The lymph node is entirely submitted for frozen section diagnosis and subsequently placed in cassette A1 for permanent sections. The soft tissue is entirely submitted in cassette A2. B. Received fresh labeled with the patient's name and date of . Designated as RT breast mass is a 7.4 x 6.0 x 3.2 cm lumpectomy with an exposed localization wire (anteriolateral). There is a short suture designated as superior and a long suture designated as lateral. Skin is not present. The specimen is inked as follows: Superior: RedInferior: BlueMedial: YellowLateral: OrangeAnterior: GreenPosterior: Black The specimen is serially sectioned from anterior to posterior (into 8 slices) revealing an ~ 0.5 x 0.4 x 0.3 cm biopsy site with surrounding fibrosis, in slice #2. A biopsy clip is identified within the biopsy site. Review of postoperative imaging confirms the presence of both a localization wire and a biopsy clip. The biopsy site is located the following distances from each margin: Anterior: 0.8 cmInferior: 0.4 cmMedial: >3.0 cmLateral: 2.9 cmPosterior: >3.0Superior: 2.9 cm Boomswing Operator sections are submitted, sequentially from slice #1 to #8, as follows: B1: Slice #1, anterior, perpendicular (green)B2-B3: Slice #2, biopsy site to inferior, entirely submitted (blue)B4: Slice #2, lateral/superior margins (red/orange)B5, slice #3, fibrosis with inferior/lateral (blue/orange)B6: Slice #5, fibrosis to medial/inferior (yellow/blue)B7: Slice #7, fibrosis to medial/inferior/superior (yellow/blue/red)B8: Slice #8, posterior, perpendicular (black) Cold ischemic time: 34 minutesFormalin fixation time: 30 hours, 4 minutes AK 02/10/2025 CPT:[id number],[id number]
[2025-02-10] MEDS: Midazolam 2 MG/2 ML Syringe 1.5 MG IV (12:03)
[2025-02-10] MEDS: Lactated Ringers 1,000 ML 1000 ML IV (12:03)
[2025-02-10] MEDS: Lidocaine 1% (5 ml sdv) 5 ML Vial IV (12:08)
[2025-02-10] MEDS: fentaNYL 100 MCG/2 ML Ampul IV (12:33)
--- NOTE | 2025-02-10 13:12 | PCM.OPRPT ---
Operative Report (Standard) Operative Information Date of Procedure: 02/10/25 Pre-Operative Diagnosis: Right breast lobular invasive carcinoma Post-Operative Diagnosis: Same Surgery/Procedure Performed: 1. Right breast stereotactic guided wire localization 2. Right axillary sentinel lymph node biopsy 3. Right partial mastectomy gun fertilizer: Yes Solid Waste Division Supervisor: Zak Laughlin Tasks completed by nurse first assist: Opening & closing and Retracting Type of Anesthesia: General/Regional RN Documented Start/Stop Times: Operation Date: 02/10/25 12:00 Case Time Into Pre-Op 02/10/25 09:08 Anesthesia Start 02/10/25 12:02 Into Room 02/10/25 12:02 Out of Pre-Op 02/10/25 12:02 Procedure Start 02/10/25 12:32 Procedure Start Time: 12:32 Procedure Stop Time: 13:20 Select all DRAINS/GRAFTS/IMPLANTS that apply: None Estimated Blood Loss: 10 Specimen collected: Yes Description of specimen(s) removed: 1. Right axillary sentinel lymph node 2. Right breast mass Description of surgery: Patient was brought to the stereotactic room and placed in the stereotactic table. The right breast was compressed and mammogram was obtained. The clip was localized. Next the skin was prepped and injected with local anesthetic. The needle was placed into the breast and stereotactic views were obtained. Next the wire was deployed and the needle was removed. Mammogram was obtained and the patient was brought back down to presurgery. Next patient was brought to the operating room and general anesthesia was induced. The right nipple was prepped and in the subcutaneous tissue 5 cc of Lymphazurin was injected behind the nipple. This was followed by 10 cc of saline and then a 6-minute massage. The right breast and axilla were prepped and draped in the usual sterile fashion. The right axillary incision was marked and injected with local anesthetic. Incision was made with a scalpel and deepened to the subcutaneous fat. Dissection was carried to the axilla. Following the neoprobe we were able to localize a blue and radioactive lymph node. It was clipped from its adhesions and attachments and 10-second count was over 3000. There were no further radioactive nodes in the armpit. There were no further blue nodes in the armpit and there were no palpable nodes in the armpit. The area was irrigated and packed with a wet and gauze. Next attention was paid to the breast. A curvilinear incision was marked near the wire and incised with local anesthetic being instilled. The wire was brought into the incision and flaps were raised. Dissection was carried inferiorly and the mass was dissected free. It was marked with sutures and sent for x-ray and pathology. X-ray revealed that the entire wire and clip were removed. [place] lymph nodes came back negative. Margins came back uninvolved on gross specimen. The cavity was irrigated and there was good hemostasis. A clip was placed. Next the skin in the axilla was closed with interrupted 3-0 Vicryl sutures and the skin and the breast was closed with interrupted 3-0 Vicryl sutures. Running 4-0 Monocryl was used to close both skin incisions. Dermabond was applied to both incisions. Patient was taken to PACU in stable condition and tolerated the procedure well. Synoptic Portion: Element Response Options Operation performed with curative intent. Yes Tracer(s) used to identify sentinel nodes in the upfront surgery (non-neoadjuvant) setting (select all that apply). Dye and radiotracer Tracer(s) used to identify sentinel nodes in the neoadjuvant setting (select all that apply). N/A All nodes (colored or non-colored) present at the end of a dye-filled lymphatic channel were removed. Yes All significantly radioactive nodes were removed. Yes All palpably suspicious nodes were removed. Yes Biopsy-proven positive nodes marked with clips prior to chemotherapy were identified and removed. N/A Surgical Findings: None Complications Complications: No Admit VTE Documentation VTE Mechan Device Prophylaxis: SCD's
--- NOTE | 2025-02-10 13:32 | PCM.POST.ANE ---
Anesthesia: Postop Eval I Current Vital Signs Temperature: 97.0 F Pulse Rate: 91 Blood Pressure: 98/54 Respiratory Rate: 16 Pulse Ox: 95 Oxygen Delivery Method: Room Air Assessment Airway patent: Yes Spontaneous unlabored respirations: Yes Mental status: Awake and Calm nausea: No Vomiting: No Anesthesia Complication: No Fluid Hydration Crystalloid volume administer (ml): 900 Total IV fluid infused: 900 Progress Note Anesthesia document: Postop Eval 1 completed: Yes
--- NOTE | 2025-02-10 14:12 | DCINST_ITS ---
Discharge Instructions Diet Discharge Diet: Light diet - advance as tolerated Activity Discharge Activity: May Not Drive (for 2-3 days or while taking narcotic pain medications.) May shower in (days): 1 Lifting Restrictions: 15 lbs for 2 weeks Dressing / Incision Call your doctor if your incision/area has: Continuous Slow Oozing and Increased Redness Call your doctor if you observe: Fever of 101 or Higher Suture Line Care: Avoid Pulling/Pushing and Avoid Pinching/Bending Cleanse incision/area with: Soap & Water Additional Dressing/Incision Instructions:: Remove bulky dressing tomorrow. Follow Up Care Please Follow Up With: Ole Gray MD When: Please call to schedule 2 week follow up appointment. [phone] Test Results: Test results from this visit will be discussed in further detail at your follow- up appointment, if applicable. Discharge Plan Admission Attending Provider: Ole Gray Primary Care Provider: Mary Smith Instructions Print Language: Citizen Of [place] Discharge Orders/Prescriptions Prescriptions: New oxycodone 5 mg Tablet 5 - 10 mg PO Q4H PRN PRN (Reason: Pain Score 4-10) 5 Days Qty: 14 0RF No Action baclofen 10 mg Tablet 10 mg PO TID PRN (Reason: Muscle Spasm) 30 Days Qty: 90 0RF pantoprazole 40 mg Tablet,Delayed Release (Dr/Ec) 40 mg PO DAILY 30 Days Qty: 30 0RF cholecalciferol (vitamin D3) [Vitamin D3] 25 mcg (1,000 unit) capsule 25 mcg PO DAILY turmeric 400 mg capsule 400 mg PO DAILY potassium gluconate 595 mg (99 mg) tablet 595 mg PO DAILY magnesium 250 mg tablet 250 mg PO DAILY gabapentin 100 mg capsule 100 mg PO DAILY PRN (Reason: neuropathic pain) Referrals / Follow Up: Mary Smith DO [Primary Care Provider] - Disposition Disposition (needs filled in before D/C Order can be placed): Home, Self Care
--- NOTE | 2025-02-10 18:51 | POSTOPAN2_ITS ---
Anesthesia Postop Eval I Sum Postop Eval Completion status Anesthesia document: Postop Eval 1 completed: Yes Anesthesia Postop Eval I Summary Anesthesia Postop Eval I Summary: Anesthesia Postop Eval I: Assessment Summary Airway patent Yes 02/10/25 13:32 [email or web address] Spontaneous unlabored Yes 02/10/25 13:32 [email or web address] respirations Mental status Awake,Calm 02/10/25 13:32 [email or web address] nausea No 02/10/25 13:32 [email or web address] Vomiting No 02/10/25 13:32 [email or web address] Anesthesia Postop Eval I: Fluid Summary Crystalloid volume administer 900 02/10/25 13:32 [email or web address] (ml) Colloids volume administered ( ml) Blood Product volume administered (ml) Total IV fluid infused 900 02/10/25 13:32 [email or web address] Anesthesia Postop Eval I: Summary Notes Anesthesia Complication No 02/10/25 13:32 [email or web address] Anesthesia Complication Comment: Post-operative progress note Anesthesia: Postop Eval II Evaluation Mental status: Awake and Calm Pain Level: 1 nausea: No Vomiting: No Complications Anesthesia Complication: No
--- NOTE | 2025-02-10 18:51 | PCM.POSTANE2 ---
Anesthesia Postop Eval I Sum Postop Eval Completion status Anesthesia document: Postop Eval 1 completed: Yes Anesthesia Postop Eval I Summary Anesthesia Postop Eval I Summary: Anesthesia Postop Eval I: Assessment Summary Airway patent Yes 02/10/25 13:32 DIRECTOR [email or web address] Spontaneous unlabored Yes 02/10/25 13:32 DIRECTOR [email or web address] respirations Mental status Awake,Calm 02/10/25 13:32 DIRECTOR [email or web address] nausea No 02/10/25 13:32 DIRECTOR [email or web address] Vomiting No 02/10/25 13:32 DIRECTOR [email or web address] Anesthesia Postop Eval I: Fluid Summary Crystalloid volume administer 900 02/10/25 13:32 DIRECTOR [email or web address] (ml) Colloids volume administered ( ml) Blood Product volume administered (ml) Total IV fluid infused 900 02/10/25 13:32 DIRECTOR [email or web address] Anesthesia Postop Eval I: Summary Notes Anesthesia Complication No 02/10/25 13:32 DIRECTOR [email or web address] Anesthesia Complication Comment: Post-operative progress note Anesthesia: Postop Eval II Evaluation Mental status: Awake and Calm Pain Level: 1 nausea: No Vomiting: No Complications Anesthesia Complication: No
== END 2025-02-10 14:43 | disposition home or self-care (01) ==
LOC: SDC 09:03 → AC 09:05
PROVIDERS: PCP Family Medicine; Referring Provider Surgery; Visit Provider Surgery
PROC: 0HBV0ZZ Excision of Bilateral Breast, Open Approach (ICD-10-PCS; CPT 19302; principal; 2025-02-10 11:45)
DX: D05.01 Lobular carcinoma in situ of right breast (principal); Z87.891 Personal history of nicotine dependence; K21.9 Gastro-esophageal reflux disease without esophagitis; Z79.899 Other long term (current) drug therapy; E78.5 Hyperlipidemia, unspecified; Z85.3 Personal history of malignant neoplasm of breast
CPT/HCPCS: 19301; 38525; 19283; 00404; 19281; 38792; 76098; 88307; 88331; 88341; 88342; A4648; A9520; A4216; J2405; Q9968

== ENCOUNTER → 2025-03-03 | Outpatient (CLI) | payer MEDICARE, OTHER, SELFPAY ==
--- OUTSIDE RECORDS SUMMARY | 2024-10-06 08:39 | XMS RPT_ITS ---
Author Name Auto Generated Organization OHIP Support Name Relationship Address Phone NIENIEC, LETA Next of Kin Unknown [phone] UNKNOWN, ERICA Next of Kin Unknown [phone] NIENIEC, LETA Next of Kin Unknown [phone] UNKNOWN, ERICA Next of Kin Unknown [phone] RODRIGUEZ, MARI Next of Kin Unknown [phone] NIENIEC, LETA Next of Kin Unknown [phone] UNKNOWN, ERICA Next of Kin Unknown [phone] RODRIGUEZ, MARI Next of Kin Unknown [phone] RODRIGUEZ, MARI Next of Kin Unknown [phone] NIENIEC, LETA Next of Kin Unknown [phone] UNKNOWN, ERICA Next of Kin Unknown [phone] RODRIGUEZ, MARI Next of Kin Unknown [phone] NIENIEC, LETA Next of Kin Unknown [phone] UNKNOWN, ERICA Next of Kin Unknown [phone] NIENIEC, LETA Next of Kin Unknown [phone] UNKNOWN, ERICA Next of Kin Unknown [phone] NIENIEC, LETA Next of Kin Unknown [phone] UNKNOWN, ERICA Next of Kin Unknown [phone] NIENIEC, LETA Next of Kin Unknown [phone] UNKNOWN, ERICA Next of Kin Unknown [phone] NIENIEC, LETA Next of Kin Unknown [phone] UNKNOWN, ERICA Next of Kin Unknown [phone] NIENIEC, LETA Next of Kin Unknown [phone] NIENIEC, LETA Next of Kin Unknown [phone] NIENIEC, LETA Next of Kin Unknown [phone] Care Team Providers Care Business Controller Name Role Phone MALYS, MARY A Referring Unavailable MALYS, MARY A Admitting Unavailable LEUTHOLD, LAURA Attending Unavailable MALYS, MARY A Primary Care Unavailable MALYS, MARY A Referring Unavailable MALYS, MARY A Admitting Unavailable LEUTHOLD, LAURA Attending Unavailable MALYS, MARY A Primary Care Unavailable MALYS, MARY A Referring Unavailable MALYS, MARY A Admitting Unavailable LEUTHOLD, LAURA Attending Unavailable MALYS, MARY A Primary Care Unavailable MALYS, MARY A Admitting Unavailable MALYS, MARY A Primary Care Unavailable LEUTHOLD, LAURA Attending Unavailable MALYS, MARY A Referring Unavailable MALYS, MARY Primary Care Unavailable SCALERA, SAYRA Consulting Unavailable JOSE PITTS Admitting Unavailable KELSEY NUÑEZ Attending Unavailable GEUBE, JORGE ALBERTO Admitting Unavailable GLAUTHIER, MARY Referring Unavailable MALYS, MARY Primary Care Unavailable HARTZFELD, JIM Consulting Unavailable NOEL SHARP Attending Unavailable SIMMERS, UNIQUE Consulting Unavailable HARTZFELD, JIM Attending Unavailable HARTZJERED, JIM Admitting Unavailable MALYS, MARY Primary Care Unavailable SCALE, SAYRA Consulting Unavailable HARTAngelFELD, JIM Attending Unavailable HARTZJERED, JIM Referring Unavailable MALYS, MARY Primary Care Unavailable HARTZFELD, JIM Attending Unavailable MALYS, MARY Primary Care Unavailable HARTZFELD, JIM Attending Unavailable MALYS, MARY Primary Care Unavailable HARTZFELD, JIM Attending Unavailable MALYS, MARY Primary Care Unavailable HARTZFELD, JIM Attending Unavailable MALYS, MARY Primary Care Unavailable HARTZFELD, JIM Attending Unavailable MALYS, MARY Primary Care Unavailable SCALERA, SAYRA Attending Unavailable MALYS, MARY Primary Care Unavailable HARTZFELD, JIM Attending Unavailable MALYS, MARY Primary Care Unavailable HARTZFELD, JIM Attending Unavailable MALYS, MARY Primary Care Unavailable PROBLEMS DATE TYPE CONDITION / CODE ATTENDING STATUS [facility] 09/19/2024 Admitting Diagnosis Other acquired deformity of head / M95.2(ICD-10) JIM BARCENAS [facility] 09/12/2024 Admitting Diagnosis Encounter for other preprocedural examination / Z01.818(ICD-10) NARINDER [facility] 08/28/2024 Admitting diagnosis Other abnormalities of gait and mobility / R26.89(ICD-10) [facility] 08/28/2024 Admitting diagnosis Dysarthria and anarthria / R47.1(ICD-10) [facility] 08/28/2024 Admitting diagnosis Unsteadiness on feet / R26.81(ICD-10) [facility] 08/28/2024 Admitting diagnosis Hydrocephalus, unspecified / G91.9(ICD-10) [facility] 07/16/2024 Admitting Diagnosis Post-op / 483() NARINDER [facility] 07/06/2024 Admitting Diagnosis Nontraumatic intracranial hemorrhage, unspecified (HCC) / I62.9(ICD-10) [facility] 06/27/2024 Admitting Diagnosis Infection and inflammatory reaction due to other internal orthopedic prosthetic devices, implants and grafts, subsequent encounter / T84.7XXD(ICD-10) [facility] 03/19/2022 Admitting Diagnosis Traumatic subdural hemorrhage with loss of consciousness status unknown, initial encounter (HCC) / S06.5XAA(ICD-10) [facility] Admitting Diagnosis Nontraumatic subdural hemorrhage, unspecified (HCC) / I62.00(ICD-10) [facility] 07/06[facility]24 Admitting Diagnosis Other specified personal risk factors, not elsewhere classified / Z91.89(ICD-10) [facility] 07/06/[facility]24 Admitting Diagnosis Personal history of other specified conditions / Z87.898(ICD-10) [facility] 07/06/[facility]24 Admitting Diagnosis Headache, unspecified / R51.9(ICD-10) NOEL SHARP Active [facility] 06/27/2024 Admitting Diagnosis Infection and inflammatory reaction due to other internal orthopedic prosthetic devices, implants and grafts, initial encounter ([facility]) / T84.7XXA(ICD-10) KELSEY NUÑEZ [facility] 06/27/2024 Admitting Diagnosis Other mechanical complication of other internal orthopedic devices, implants and grafts, initial encounter ([facility]) / T84.498A(ICD-10) KELSEY NUÑEZ [facility] 05/12/2024 Admitting Diagnosis Follow-up / [id number]() JIM BARCENAS Active [facility] PROCEDURES No Procedure Records Found RESULTS 36 Observed: 01/27/2025 11:58 AM Status: COMPLETED Source: [facility] Faxed to provided #. [phone] Observed: 01/27/2025 11:46 AM Status: COMPLETED Source: [facility] Name of caller: Sindhu Contact phone number: [phone] Relationship to Patient: [facility] MRI Provider: Dr Morelos Practice: Neurosurgery Chief Complaint/Reason for Call: The patient is currently at [facility] attempting to complete an MRI. The imaging staff is requesting clinic notes from the most recent surgery to advise on any implanted metal or medical devises. Attempted to call the back line, due to the the patient being there now for the imaging, no answer. Please call [facility] to advise and fax clinical notes. Best time of day caller can be reached: Any Patient advised that office/PCP has 24-48 business hours to return their call: Yes SURG PATH REQUEST Collected: 01/02/2025 10:13 AM Sta tus: F Source: [facility] TYPE CODE TESTS RESULT OUT OF RANGE REFERENCE UNITS LAB [id number] Case Report Result Comment: Surgical Pat hology Report Case: [id number] Authorizing Provider: Valery Jackson MD Collected: 01/02/2025 10:13 AM Ordering Location[facility] Received: 01/02/2025 08:30 AM [place] Pathologist: Javed Stratton MD, PhD Specimen: SURG PATH, Outside block [id number] (A1); Breast, right, mass 10:00, 9 CMFN, ultrasound-guided core biopsy; Molecular testing LAB [id number] Clinical History Result Comment: Received is a request from Valery Jackson MD at [facility] for molecular testing on a paraffin block received from [facility]. Pre-Op Diagnosis: Right breast mass. LAB [id number] Pathologic Diagnosis Result Comment: Outside Slid es: [id number] (12/26/24) A. Breast, right, mass 10:00, 9 CMFN, ultrasound-guided core biopsy: HER2/FISH: Negative (See FISH results separately reported) at [address] [facility] [id number] Microscopic Description Tissue was assessed by a molecular pathologist to select areas for analysis and to correlate immunostaining with histology. No morphologic assessment was requested. LAB [id number] Gross Description Result Comment: The followin g material(s) are received from [facility], [address] [place] [address] with an identifying Surgical Pathology Report: 1 paraffin block marked [id number] (A1), which is submitted to the [facility] histology/I[facility] laboratory for recutting and additional staining for molecular testing: HER2, FISH. Materials will be returned upon completion. Grosser for this case was: Chloe Razo LAB Intraoperative Diagnosis Intraoperative Diagnosis Result Comment: For Immediate Release [facility] Yes LAB Professional Interpretation Performed at: Professional Interpretation Performed at: Result Comment: [facility] [address] [address] Performed By: #### SURGP ### # U [facility] (DEFAULT) [address] [place] [address] PROGRESS NOTE Observed: 10/06/2024 9:00 AM Status: COMPLETED Source: [employer] [facility] NEUROSURGERY and SPINE POST- OP NOTE Patient Name: Carla Sanchez Patient : 1950 PCP: MARY SMITH History of Present Ilness: Patient is post-op left cranioplasty performed on September 19, 2024. She returns today for her postoperative evaluation. Her incision is healing very nicely. She has no new neurologic complaints. Overall she is recovering in a usual fashion. Past Medical History: Past Medical History: Diagnosis Date Anemia Arthritis Brain bleed ([facility]) 2013, 2021 Diverticulitis Gastric ulcer Leg fracture, right Right arm fracture Seizures ([facility]) 2013 with first craniotomy- while in hospital- none since Thoracic spine fracture ([facility]) Past Surgical History: Past Surgical History: Procedure Laterality Date ABDOMINAL SURGERY 07/2021 on stomach CHOLECYSTECTOMY COLONOSCOPY CRANIOTOMY Left 2013 DILATION AND CURETTAGE OF UTERUS HAND SURGERY Right fracture repiair SMALL INTESTINE SURGERY small part removed UPPER GASTROINTESTINAL ENDOSCOPY Home Medications: Prior to Admission medications Medication Sig Start Date End Date Taking? Authorizing Provider Ascorbic Acid (vitamin C) 500 MG tablet TAKE 1 TABLET BY MOUTH ONCE DAILY AT 10AM 08/30/23 Yes Historical Provider, B Complex Vitamins (VITAMIN B COMPLEX PO) Take by mouth. Yes Historical Provider, baclofen (Lioresal) 10 MG tablet Take 10 mg by mouth 2 times daily as needed. 02/12/24 Yes Historical Provider, Cholecalciferol 25 MCG (1000 UT) tablet dispersible Take by mouth. Yes Historical Provider, Loratadine (CLARITIN PO) Take by mouth. Yes Historical Provider, mupirocin (Bactroban) 2 % ointment Apply topically three times daily. Yes Historical Provider, nystatin (Mycostatin) 782901 UNIT/GM powder Apply topically 2 times daily. Yes Historical Provider, pantoprazole (ProtoNix) 40 MG EC tablet Take 40 mg by mouth daily. Yes Historical Provider, POTASSIUM GLUCONATE PO Take by mouth. Yes Historical Provider, sennosides (Senokot) 8.6 MG tablet Take 2 tablets (17.2 mg) by mouth Nightly as needed for constipation (If no BM in last 24hrs). 07/09/24 07/09/25 Yes Noel Sharp MD TURMERIC PO Take by mouth. Yes Historical Provider, VITAMIN D PO Take by mouth. Yes Historical Provider, doxycycline (Monodox) 100 MG capsule Take 1 capsule (100 mg) by mouth every 12 hours for 24 doses. Take with at least 8 ounces (large glass) of water, do not lie down for 30 minutes after 09/21/24 10/03/24 Aramis Oreilly MD Allergies: Ibuprofen, Penicillins, and Prednisone Physical Examination: Vitals: 10/06/24 0846 BP: 132/69 Pulse: 103 Physical Exam Constitutional: Appearance: Normal appearance. HENT: Head: Normocephalic. Eyes: Extraocular Movements: Extraocular movements intact. Pupils: Pupils are equal, round, and reactive to light. Cardiovascular: Rate and Rhythm: Normal rate. Pulmonary: Effort: Pulmonary effort is normal. Abdominal: Palpations: Abdomen is soft. Musculoskeletal: General: Normal range of motion. Cervical back: Normal range of motion and neck supple. Skin: General: Skin is warm and dry. Neurological: General: No focal deficit present. Mental Status: She is alert. Psychiatric: Mood and Affect: Mood normal. Judgment: Judgment normal. Neurological Exam Mental Status Alert. Cranial Nerves CN III, IV, : Extraocular movements intact bilaterally. Pupils equal round and reactive to light bilaterally. Incision well approximated, no bleeding/swelling/drainage ASSESSMENT / PLAN : She is status post left cranioplasty. She is doing very well. The incision is healing very nicely. There are no evidence of drainage redness or infection. She will continue to take care of her wound as she has been. She can now follow-up with us on an as-needed basis. Overall she and her family are quite pleased with her surgical results and progress. Diagnosis Plan 1. Exposed orthopaedic hardware (HCC) 2. Subdural hematoma, nontraumatic (CMS/HCC) (HCC) CE VISIT Observed: 10/06/2024 9:00 AM Status: COMPLETED Source: [facility] [id number] Carla Sanchez [birth year] F Date Provider Department Center 10/06/2024 [id number] BARCENAS [facility] None Family History Problem Relation Age of Onset Breast cancer Mother Heart disease Father Family Status - Relation Status Age at Mother Father Level of Service:[address]69 [place] POSTOP FOLLOW UP VISIT RELATED TO ORIGINAL PX Reason for Visit and Comments: Post-op [483] - Doing good 36 Observed: 09/26/2024 10:14 AM Status: COMPLETED Source: [facility] Called patient to see how dia hendrix was doing after her surgery. Pt. States she doing really good. Pt. Is at home by herself and has had no problems. Pt. States her pain is controlled by her medication. Pt. Is showering with no problems. Pt. States she has had no problems with her incision. Pt. Was reminded of her post op appointment on 10/06 at 9 am PROGRESS NOTE Observed: 09/21/2024 12:33 PM Status: COMPLETED Source: [facility] Nutrition Assessment Type and Reason for Visit: Initial (ICU screen) Nutrition Recommendations/Plan: Continue Regular diet RD signing off, patient is low risk. vascular technician to follow Malnutrition Assessment: Malnutrition Status: No malnutrition Context: Acute Illness Nutrition Assessment: 74 y/o F with hx of cholangitis. E coli/ C perfringens BSI managed through [facility] in 10/2023 (cipro/flagyl) with PTHC and ultimately internal biliary stent, hx ESBL Klebsiella BSI/ cholangitis (ertapenem 08/2023), hx Ortega-en-Y gastric bypass (2021), hx SDH remotely (2013 or 2014) with previous craniotomy--> developed an acute SDH in 09/2021 requiring joanie hole drainage by Dr. Barcenas along with MMA embolization. She presented to Neurosurgery outpatient in 04/2024 with an area of the L forehead with exposed metal with bleeding. A CT was ordered given it was not in the region of the 2021 procedures. It showed craniotomy flaps on the right and left; + hardware for the L craniotomy flap appears very close to the level of skin. She underwent L craniectomy of all hardware and bone flap on 06/27/[address] Barcenas. The underside of the scalp had purulent material grew MRSA. Epidural space, bur hole, and bone flap were all sent for cx--> grew MRSA. She was placed on vancomycin x 6 weeks--> 08/08/24. She had been receiving abx through [facility]. She was readmitted after suffering a post-op L SDH hematoma that was medically managed. She has had some cognitive changes and speech issues related to this issue. She finished abx with a plan for 2 weeks of post-op abx after repeat cranioplasty. She did not want to have vancomycin with PICC given cost concerns as well as need placement. We agreed upon doxycycline PO x2 weeks. She underwent cranioplasty today. Patient has been eating well since admission reports no DELMI BELL RINGER. She denies weight loss. Shedenies allergies and chewing/swallowing concerns. She does note she has upper dentures and sometimes they cause trouble to chew but patient reports its not really a problem and she can eat foods like steak. RD signing off, diet aide to follow. Estimated Daily Nutrient Needs: Energy Requirements Based On: Kcal/kg Weight Used for Energy Requirements: [place] Weight for Energy Calculation (kg): 61 kg Total Energy Requirements (kcals/day): 8516-4216 Weight Used for Protein Requirements: [place] Weight in Kg Used for Protein Requirements: 61 kg Estimated Total Protein (g/day): 73-84 Estimated Daily Total Fluid (ml/day): per MD Nutrition Related Findings: , Orientation Level: Oriented X4, Cognition: Follows commands, Appropriate judgement, Appropriate safety awareness, Appropriate attention/concentration, Best Verbal Response: Oriented, Teeth: Dentures upper Brennon Scale Score: 22. Wound Type: Surgical Incision Net IO Since Admission: 1,125.86 mL [09/21/24 1234] Gastrointestinal (WDL): Within Defined Limits Last BM Date: 09/21/24, , Edema: , RUE Edema: None, LUE Edema: None, RLE Edema: None, LLE Edema: None Oxygen Therapy: None (Room air), , Labs and meds reviewed: Scheduled: acetaminophen, 1,000 mg, Oral, q8h vitamin C, 500 mg, Oral, Daily doxycycline, 100 mg, Oral, q12h mupirocin, , Nasal, BID pantoprazole, 40 mg, Oral, Nightly Or pantoprazole (ProtoNix) 40 mg in sodium chloride (PF) 0.9 % 10 mL injection, 40 mg, IntraVENous, Nightly senna-docusate sodium, 2 tablet, Oral, Daily sodium chloride 0.9%, 5-40 mL, IntraVENous, 2 times per day Current Nutrition Therapies: Adult diet Regular Current Oral Intake Average Meal Intake: 76-100% Average Supplements Intake: None Ordered Anthropometric Measures: Current Body Weight: 81.2 kg (179 lb) Weight Source: Bed Scale Admission Body Weight: (N/A) Usual Body Weight: 79.4 kg (175 lb) (06/23/24) % Weight Change (Calculated): 2.3 BMI (kg/m2) (Calculated): 28 Weight Adjustment For: No Adjustment BMI Categories: Overweight (BMI 25.0-29.9) Nutrition Diagnosis: No nutrition diagnosis at this time Nutrition Interventions: Nutrition Education/Counseling: No recommendation at this time Coordination of Nutrition Care: No recommendation at this time Nutrition Monitoring and Evaluation: Behavioral-Environmental Outcomes: None Identified Food/Nutrient Intake Outcomes: None Identified Physical Signs/Symptoms Outcomes: None Identified Discharge Planning: Continue current diet Keturah Rivera RD Contact: available via [employer] chat or *[id number] DISCHARGE SUMMARY Observed: 09/21/2024 10:09 AM Status: COMPLETED Source: [facility] Discharge Summary Carla Sanchez : 1950 ADMIT DATE: 09/19/2024 DISCHARGE DATE: 09/21/2024 PRIMARY CARE PHYSICIAN: MARY SMITH VISIT STATUS: Admission CODE STATUS: Full Code DISCHARGE DIAGNOSES: Principal Problem: Skull defect HOSPITAL COURSE: The patient underwent cranioplasty on the day of admission. Post-operatively, the patient was transferred to the PACU in stable condition and then to ICU. They received 24 hours of prophylactic IV antibiotics. ID followed and placed patient on 2 weeks prophylactic abx DVT prophylaxis included SCDs and early ambulation. Diet was advanced, patient was ambulated and able to urinate, and pain was reasonably controlled. The patient progressed well throughout the hospitalization and was deemed stable for discharge to Home SIGNIFICANT DIAGNOSTIC STUDIES: Cbc, bmp, ct scan head CONSULTANTS: SICU RECOMMENDED NEXT STEPS: Follow up in 2 weeks DISCHARGE MEDICATIONS: Medication List START taking these medications doxycycline 100 MG capsule Commonly known as: Monodox Take 1 capsule (100 mg) by mouth every 12 hours for 24 doses. Take with at least 8 ounces (large glass) of water, do not lie down for 30 minutes after oxyCODONE 5 MG immediate release tablet Commonly known as: Roxicodone Take 0.5 tablets (2.5 mg) by mouth every 6 hours as needed for moderate pain (4-6) for up to 5 days. CHANGE how you take these medications * mupirocin 2 % ointment Commonly known as: Bactroban What changed: Another medication with the same name was added. Make sure you understand how and when to take each. * mupirocin 2 % ointment Commonly known as: Bactroban Apply topically 2 times daily for 8 doses. Apply to inside of nostrils What changed: You were already taking a medication with the same name, and this prescription was added. Make sure you understand how and when to take each. * This list has 2 medication(s) that are the same as other medications prescribed for you. Read the directions carefully, and ask your doctor or other care provider to review them with you. CONTINUE taking these medications baclofen 10 MG tablet Commonly known as: Lioresal Cholecalciferol 25 MCG (1000 UT) tablet dispersible CLARITIN PO nystatin 255017 UNIT/GM powder Commonly known as: Mycostatin pantoprazole 40 MG EC tablet Commonly known as: ProtoNix POTASSIUM GLUCONATE PO sennosides 8.6 MG tablet Commonly known as: Senokot Take 2 tablets (17.2 mg) by mouth Nightly as needed for constipation (If no BM in last 24hrs). TURMERIC PO VITAMIN B COMPLEX PO vitamin C 500 MG tablet VITAMIN D PO Where to Get Your Medications These medications were sent to [facility] [address] [place] [id number] doxycycline 100 MG capsule mupirocin 2 % ointment oxyCODONE 5 MG immediate release tablet DIET: Adult diet Regular ACTIVITY: Up with assist COMPLEXITY OF FOLLOW UP: [] Moderate Complexity: follow up within 7-14 calendar days (73006) [] Severe Complexity: follow up within 7 calendar days (34998) FOLLOW UP TESTING, PENDING RESULTS OR REFERRALS AT TRANSITIONAL CARE VISIT: [] Yes [] No PENDING STUDIES: NA DISPOSITION: Home FACILITY/HOME CARE AGENCY NAME: Follow up with Jim Barcenas MD [address] [place], [place] [address]d [facility] [address] Schedule an appointment as soon as possible for a visit in 1 week(s) Sayra Honeycutt MD [address] [place] [id number] Schedule an appointment as soon as possible for a visit in 1 week(s) INSTRUCTIONS TO MA/SW: Please call patient on day after discharge (must document patient contacted within 2 business days of discharge). FOLLOW UP QUESTIONS FOR MA/SW: 1. Did you get medications filled and taking them as instructed from discharge? 2. Are you following your discharge instructions from your hospital stay? 3. Please confirm patient is scheduled for a follow up appointment within the above time frame. DISCHARGE TIME: < 30 minutes SIGNED: Saira Meyer APRN - LAVONNE 09/21/2024, 10:09 AM PROGRESS NOTE Observed: 09/21/2024 10:04 AM Status: COMPLETED Source: [facility] NEUROSURGERY and SPINE FOLLO W-UP NOTE Patient Name: Carla Sanchez Patient : 1950 PCP: MARY SMITH Chief Complaint: skull defect History of Present Ilness: patient POD 2 cranioplasty. She is doing exceptionally well. Drains intact, ambulating independently without assist. Past Medical History: Past Medical History: Diagnosis Date Anemia Arthritis Brain bleed (HCC) 2013, 2021 Diverticulitis Gastric ulcer Leg fracture, right Right arm fracture Seizures (HCC) 2013 with first craniotomy- while in hospital- none since Thoracic spine fracture (HCC) Past Surgical History: Past Surgical History: Procedure Laterality Date ABDOMINAL SURGERY 07/2021 on stomach CHOLECYSTECTOMY COLONOSCOPY CRANIOTOMY Left 2013 DILATION AND CURETTAGE OF UTERUS HAND SURGERY Right fracture repiair SMALL INTESTINE SURGERY small part removed UPPER GASTROINTESTINAL ENDOSCOPY Home Medications: Prior to Admission medications Medication Sig Start Date End Date Taking? Authorizing Provider Ascorbic Acid (vitamin C) 500 MG tablet TAKE 1 TABLET BY MOUTH ONCE DAILY AT 10AM 08/30/23 Yes Historical Provider, B Complex Vitamins (VITAMIN B COMPLEX PO) Take by mouth. Yes Historical Provider, baclofen (Lioresal) 10 MG tablet Take 10 mg by mouth 2 times daily as needed. 02/12/24 Yes Historical Provider, Cholecalciferol 25 MCG (1000 UT) tablet dispersible Take by mouth. Yes Historical Provider, Loratadine (CLARITIN PO) Take by mouth. Yes Historical Provider, mupirocin (Bactroban) 2 % ointment Apply topically three times daily. Yes Historical Provider, nystatin (Mycostatin) 397646 UNIT/GM powder Apply topically 2 times daily. Yes Historical Provider, pantoprazole (ProtoNix) 40 MG EC tablet Take 40 mg by mouth daily. Yes Historical Provider, POTASSIUM GLUCONATE PO Take by mouth. Yes Historical Provider, sennosides (Senokot) 8.6 MG tablet Take 2 tablets (17.2 mg) by mouth Nightly as needed for constipation (If no BM in last 24hrs). 07/09/24 07/09/25 Yes Noel Sharp MD TURMERIC PO Take by mouth. Yes Historical Provider, VITAMIN D PO Take by mouth. Historical Provider, Allergies: Ibuprofen, Penicillins, and Prednisone Social History: TOBACCO: reports that she quit smoking about 4 years ago. Her smoking use included cigarettes. She has never used smokeless tobacco. ETOH: reports current alcohol use of about 1.0 standard drink of alcohol per week. RECREATIONAL DRUG USE: Social History Substance and Sexual Activity Drug Use Not Currently Family History: Family History Problem Relation Name Age of Onset Breast cancer Mother Heart disease Father Physical Examination: Vitals: 09/21/24 0800 BP: Pulse: Resp: Temp: 36.7 ?C (98 ?F) SpO2: Physical Exam Neurological: Motor: Motor strength is normal. Psychiatric: Speech: Speech normal. Neurological Exam Mental Status Awake, alert and oriented to person, place and time. Oriented to person, place and time. Speech is normal. Language is fluent with no aphasia. Attention and concentration are normal. Fund of knowledge is appropriate for level of education. Motor Strength is 5/5 throughout all four extremities. Sensory Sensation is intact to light touch, pinprick, vibration and proprioception in all four extremities. ERIKA drain removed today; catheter tip intact Results Labs: Last 24hrs No results found for this or any previous visit (from the past 24 hours). Radiology Personal review: Ct this am is stable. No significant fluid collections, no shift, no mass effect. ASSESSMENT / PLAN : 74 year old female s/p cranioplasty. She is recovering in an expected fashion She is stable for discharge to home Follow up in [address] Barcenas HARGE SUMMARY Observed: 09/21/2024 9:58 AM Status: COMPLETED Source: [facility] ~~~~~~~~~~~~~~~~~~~~~~~~~~~~ ~~~~~~~~~~~~~~~~~~~~~~~~~~~~~~ Attending physician addendum: I independently saw and evaluated the patient. I personally obtained the ames and critical portion of the history and physical exam. I reviewed and agree with the documentation below. I personally reviewed patient's labs and imaging studies. My findings agree with the below note except for any details corrected. I have examined the patient at the date below. Patient Active Problem List Diagnosis SDH (subdural hematoma) (HCC) Intracranial hemorrhage (HCC) Infected bone flap, initial encounter (HCC) Intracranial bleed (HCC) Skull defect I have evaluated the patient on: 09/21/24 Total Care Time (combined between RETURNED GOODS INSPECTOR-MOTOR BUILDER WINDER/PA-C/resident and myself) throughout the day today was >= 30 minutes (including chart/data review/analysis, care coordination, and qyfw-su-ouwi encounter), and was spent discussing/counseling the patient/family regarding the care plan for Carla Sanchez. I examined the patient independently. I reviewed relevant data myself and may have also done so in the context of team rounds. A full chart review was performed. In addition, time was also spent specifically coordinating care regarding: discharge planning, co-ordination with Consultants. I personally spent greater than 30 minutes involved with discharge planning, education, and coordination in arranging this patient's discharge today. Bulmaro Smyth MD FACS Trauma, Surgical Critical Care, & General Surgery Division of Trauma Department of Surgery [facility] Department of Trauma / Critical Care Discharge Summary Name: Carla Sanchez Date: 09/21/2024 10:00 AM : 1950 Age/Sex: 74 y.o. female Admit Date: 09/19/24 Discharge Date: 09/21/24 Attending: Jim Barcenas MD Discharge Diagnosis: 1. Skull defect Patient Active Problem List Diagnosis SDH (subdural hematoma) (HCC) Intracranial hemorrhage (HCC) Infected bone flap, initial encounter (HCC) Intracranial bleed (HCC) Skull defect Body mass index is 28.11 kg/m?. 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 Hospital Course (Care, treatment and services provided): Please see H&P and prior notes for more detailed summary of previous investigations and clinical assessment prior to this admission. Brief HPI 74 y.o. female presents s/p cranioplasty with Dr. Barcenas 09/19/24. Patient is s/p left craniotomy due to exposed hardware in June 2024 where she was found to have DARBY infection of the flap with osteomyelitis Incidental Findings: none Hospital course: Patient ambulatory and tolerating diet POD 0. Started on vancomycin per ID recommendation with plan to transition to doxycycline for two weeks outpatient. ERIKA drains pulled and patient stable for discharge. Consultations: IP CONSULT TO INFECTIOUS DISEASES PCP: MARY SMITH Recommended Follow-ups: Neurosurgery Infectious disease Treatments and Procedures with outcomes: Labs: Data Review Data CBC with Differential: Lab Results Component Value Date WBC 10.8 (H) 09/20/2024 RBC 3.89 09/20/2024 HGB 10.5 (L) 09/20/2024 HCT 32.9 (L) 09/20/2024 PLT 178 09/20/2024 CMP: Lab Results Component Value Date NA 135 (L) 09/20/2024 K 4.7 09/20/2024 CL 106 09/20/2024 CO2 21 (L) 09/20/2024 BUN 11 09/20/2024 CREATININE 0.72 09/20/2024 GLUCOSE 105 09/20/2024 CALCIUM 8.5 (L) 09/20/2024 BMP: Hepatic Function Panel: Ionized Calcium: No components found for: IONCA Magnesium: No results found for: MG Phosphorus: No results found for: PHOS PT/INR: No results found for: PROTIME, INR PTT: No results found for: APTT[APTT Last 3 Troponin: No results found for: TROPONINI Urine Culture: No components found for: CURINE Blood Culture: No components found for: CBLOOD, CFUNGUSBL Blood Culture from Central Line: No components found for: CBLOODLN Stool Culture: No components found for: CSTOOL Sputum Culture: No components found for: CSPUTUM Sputum Culture for AFB: No components found for: CAFBSM Wound Culture: Procedures: Cranioplasty 09/19/24 Significant Imaging Results: CT head wo IV contrast Result Date: 09/20/2024 Patient Name: [facility] 1950 [id number] Exam Date/Time: 09/20/2024 04:55 Procedure: CT HEAD WO IV CONTRAST Ordering Provider: MEYER JENNIFER Reason For Exam: PO cranioplasty EXAMINATION: CT of the head without intravenous contrast. EXAM DATE & TIME: 09/20/2024 4:55 AM EDT INDICATION: PO cranioplasty ADDITIONAL INFORMATION: 74-year-old female presents for follow-up after cranioplasty COMPARISON: CT head dated 09/02/2024 LIMITATIONS: None TECHNIQUE: Thin axial imaging of the head was performed without intravenous contrast. Images were reformatted in coronal and sagittal projections using the raw CT data and were interpreted in conjunction with the axial images to render the findings listed below. Dose reduction was employed with automated exposure control. FINDINGS: Brain: Postsurgical changes related to revision of left frontotemporal cranioplasty are seen. No evidence of acute intracranial hemorrhage, mass lesion or acute infarction. There is chronic microvascular change.. Ventricles: Generalized enlargement of the ventricles and sulci is noted without extracerebral collection with mass effect. Paranasal sinuses: The right maxillary sinus is hypoplastic and contains lobulated mucosal thickening. Mastoids: Clear. Skull: Postsurgical changes related to left frontotemporal craniectomy are seen. Cranioplasty is present in the surgical bed. There is evidence for prior right craniotomy. Orbits: No orbital emphysema. Soft tissues: Postsurgical changes are present related to left frontotemporal cranioplasty revision. Surgical drain is present in the operative bed. A small amount of gas is noted anteriorly, just deep to cutaneous surgical yao. 1. Postsurgical changes related to revision of left frontotemporal cranioplasty. 2. No acute intracranial hemorrhage, mass lesion or evidence of acute stroke. 3. Right maxillary sinus disease. Report Dictated on Electronically Signed By: Moe Ordaz MD Electronically Signed Date/Time: 09/20/2024 6:54 AM EDT Pending Test Results and Tests to Obtain as Outpatient: none Disposition: She was discharged to home Discharge Medications: She did have significant changes to their home medications (see below) Medication List START taking these medications doxycycline 100 MG capsule Commonly known as: Monodox Take 1 capsule (100 mg) by mouth every 12 hours for 24 doses. Take with at least 8 ounces (large glass) of water, do not lie down for 30 minutes after CHANGE how you take these medications * mupirocin 2 % ointment Commonly known as: Bactroban What changed: Another medication with the same name was added. Make sure you understand how and when to take each. * mupirocin 2 % ointment Commonly known as: Bactroban Apply topically 2 times daily for 8 doses. Apply to inside of nostrils What changed: You were already taking a medication with the same name, and this prescription was added. Make sure you understand how and when to take each. * This list has 2 medication(s) that are the same as other medications prescribed for you. Read the directions carefully, and ask your doctor or other care provider to review them with you. CONTINUE taking these medications baclofen 10 MG tablet Commonly known as: Lioresal Cholecalciferol 25 MCG (1000 UT) tablet dispersible CLARITIN PO nystatin [id number] UNIT/GM powder Commonly known as: Mycostatin pantoprazole 40 MG EC tablet Commonly known as: ProtoNix POTASSIUM GLUCONATE PO sennosides 8.6 MG tablet Commonly known as: Senokot Take 2 tablets (17.2 mg) by mouth Nightly as needed for constipation (If no BM in last 24hrs). TURMERIC PO VITAMIN B COMPLEX PO vitamin C 500 MG tablet VITAMIN D PO Where to Get Your Medications These medications were sent to [facility] [address] [place], [place] [address] [address] [address] doxycycline 100 MG capsule mupirocin 2 % ointment Discharge Condition: Physical Exam at the time of discharge: Please refer to the Progress note on day of discharge for a detailed exam. At the time of discharge the patient is good. Discharge Instructions: Activity: activity as tolerated Diet: regular diet Discharge needs: none The patient's OARRS report was obtained and reviewed by myself on 09/21/24. Discharge Instructions Provided: Wash incision daily with warm soapy water, johnsons baby soap Keep incision clean and dry No ointments or creams to site Clean hats, wraps onlu Attestation: I spent 31 minutes on pt discharge. PROGRESS NOTE Observed: 09/21/2024 6:45 AM Status: COMPLETED Source: [employer] [facility] Attestation signed by Jorge Alberto Smyth MD at 10/21/2024 8:10 AM (Updated) ~~~~~~~~~~~~~~~~~~~~~~~~~~~~~~~~~~~~~~~~~~~~~~~~~~~~~~~~~~ Attending physician addendum: I independently saw and evaluated the patient. I personally obtained the ames and critical portion of the history and physical exam. I reviewed and agree with the documentation below. I personally reviewed patient's labs and imaging studies. My findings agree with the below note except for any details corrected. I have examined the patient at the date below. Patient Active Problem List Diagnosis SDH (subdural hematoma) (HCC) Intracranial hemorrhage (HCC) Infected bone flap, initial encounter (HCC) Intracranial bleed (HCC) Skull defect I personally supervised the resident/RETURNED GOODS INSPECTOR/JAKE in the evaluation and development of a treatment plan for this patient on the same day of service as below. I personally discussed the review of systems and interviewed the patient along with performing a physical examination. I reviewed the recent events, imaging, labs, vital signs. In addition, I discussed the patient's condition and treatment options with him/her when possible. I have also reviewed and agree with the past medical, family, and social history unless otherwise noted. All of the patient's questions were answered and family updated when appropriate and possible. A complete review of systems was obtained and is negative except as stated in HPI. Per Dr Oreilly's note. I have evaluated the patient on 09/21/24 Patient reports minimal headache, tolerates diet well. Remaining drain - 120 ml serosanguineous. Asymptomatic SBP in 80s while asleep. Plan of care discussed with ID and primary Neurosurgery team - discharge home plans on Doxycycline 100 mg q12h. Patient refusing PICC for Iv Abx. Discharge and follow up instructions discussed. 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 GERD H/o cholangitis H/o Ortega-en-Y bypass H/o joanie holes Sep 2021 H/o MMA embolization Procedures: 09/19 - Left cranioplasty Management / Plan : Neuro / Spine - Repeat CT head stable - Neurosurgery on board pending recs for ERIAK and discharge - Seizure ppx: none - Pain control: scheduled tylenol - Elevate HOB 30 degrees - Neuro checks q4hr Cardiovascular - Hemodynamically stable - MAP >60 while asleep, >65 while awake, BP Goal <150 SBP - Labetalol/hydralazine prn - Telemetry Pulmonary - Standard O2 protocol - IS FEN/GI - Regular - Zofran PRN -Bowel regimen: scheduled senna, PRN miralax - No acute issues - Monitor I/Os - Goal UOP > 0.5 ml/kg/hr Endocrine - No acute issues Heme - Stable ID MRSA decolonization ordered - ID c/s. Switch vancomycin to doxycycline BID for total 2 weeks Lines/Devices: - PIV Prophylaxis: DVT: None Has DVT PPX been started? No If no, why? ambulatory GI: protonix Pressure Ulcer: OOB Musculoskeletal: WB Status: WBAT Is the patient in restraints?: no Medications Reconciled- Yes [x] NO [], why Disposition: Remain on T2 pending drain removal Level of Medical Decision Making: risk of morbidity from additional diagnostic testing or treatment due to postoperative management []High [x]Moderate []Low Personally Reviewed/Independently interpreted patient's: [x]Epic notes [x]Radiology studies [x]Labs []EKG []Ordering tests []Other Discussed/ With: [x]Patient/Family [x]RN [x]Consultants []Primary Team []SW/TCC []Other I have discussed with the patient calling our office or coming to the ED with fevers/chills, nausea, vomiting or worsening pain. Discharge and follow up instruction discussed. I personally spent greater than 30 minutes involved with discharge planning, education, and coordination in arranging this patient's discharge today. Bulmaro Smyth MD FACS Trauma, Surgical Critical Care, & General Surgery Division of Trauma Department of Surgery [facility] Daily SICU Progress Note Resident 09/21/2024 6:45 AM Admit Date: 09/19/2024 HPI: 74 y.o. female presents s/p cranioplasty with Dr. Barcenas 09/19/24. Patient is s/p left craniotomy due to exposed hardware in June 2024 where she was found to have DARBY infection of the flap with osteomyelitis PROCEDURES: Cranioplasty 09/19 INCIDENTAL FINDINGS: none CHIEF COMPLAINT: none PREVIOUS 24 HOUR EVENTS: One ERIKA drain pulled BP soft overnight Consults: IP CONSULT TO INFECTIOUS DISEASES MEDICATIONS: Current Facility-Administered Medications: acetaminophen (Tylenol) tablet 1,000 mg, 1,000 mg, Oral, q8h, Aramis Oreilly MD, 1,000 mg at 09/21/24 0618 ascorbic acid (Vitamin C) tablet 500 mg, 500 mg, Oral, Daily, Saira Meyer APRN - MOTOR BUILDER WINDER, 500 mg at 09/20/24 0812 [Held by provider] baclofen (Lioresal) tablet 10 mg, 10 mg, Oral, BID PRN, Saira Meyer RETURNED GOODS INSPECTOR - MOTOR BUILDER WINDER doxycycline (Monodox) capsule 100 mg, 100 mg, Oral, BID, Aramis Oreilly MD hydrALAZINE (Apresoline) injection 10 mg, 10 mg, IntraVENous, q4h PRN, Evelyne Maurer MD labetalol (Normodyne,Trandate) injection 10 mg, 10 mg, IntraVENous, q4h PRN, Evelyne Maurer MD mupirocin (Bactroban) 2 % ointment, , Nasal, BID, Aramis Oreilly MD, Given at 09/20/24 0812 naloxone (Narcan) injection 0.4 mg, 0.4 mg, IntraVENous, q5 min PRN, Aramis Oreilly MD ondansetron ODT (Zofran-ODT) disintegrating tablet 4 mg, 4 mg, Oral, q8h PRN OR ondansetron (Zofran) injection 4 mg, 4 mg, IntraVENous, q6h PRN, Saira Dominguezsangel RETURNED GOODS INSPECTOR - MOT[employer] BUILDER WINDER oxyCODONE (Roxicodone) immediate release tablet 2.5 mg, 2.5 mg, Oral, q4h PRN OR oxyCODONE (Roxicodone) immediate release tablet 5 mg, 5 mg, Oral, q4h PRN, Aramis Oreilly MD, 5 mg at 09/20/24 2206 pantoprazole (ProtoNix) EC tablet 40 mg, 40 mg, Oral, Nightly, 40 mg at 09/20/24 2256 OR pantoprazole (ProtoNix) 40 mg in sodium chloride (PF) 0.9 % 10 mL injection, 40 mg, IntraVENous, Nightly, Rehan Hutson DO polyethylene glycol (PEG) 3350 (Miralax) packet 17 g, 17 g, Oral, Daily PRN, Saira Dominguezsz, RETURNED GOODS INSPECTOR - MOT[employer] BUILDER WINDER senna-docusate sodium (Senokot-S) 8.6-50 MG tablet 2 tablet, 2 tablet, Oral, Daily, Evelyne Maurer MD, 2 tablet at 09/20/24 0812 sodium chloride 0.9 % infusion, 5-250 mL/hr, IntraVENous, PRN, Saira Welch Orosz, RETURNED GOODS INSPECTOR - MOT[employer] BUILDER WINDER sodium chloride 0.9% (NS) flush 5-40 mL, 5-40 mL, IntraVENous, 2 times per day, Saira Welch Orosz RETURNED GOODS INSPECTOR - MOTOR BUILDER WINDER, 10 mL at 09/20/24 2100 sodium chloride 0.9% (NS) flush 5-40 mL, 5-40 mL, IntraVENous, PRN, Saira Dominguezsz RETURNED GOODS INSPECTOR - MOTOR BUILDER WINDER ARE THERE PERTINENT UPDATES TO PAST,FAMILY, OR SOCIAL HISTORY?: No Subjective: No complaints Review of Systems Objective: Patient Vitals for the past 24 hrs: BP Temp Temp src Pulse Resp SpO2 Weight 09/21/24 0501 -- -- -- -- -- -- 81.4 kg (179 lb 7.3 oz) 09/21/24 0500 96/56 -- -- 78 20 99 % -- 09/21/24 0400 96/56 -- -- 75 12 96 % -- 09/21/24 0302 (!) 97/48 -- -- 90 19 (!) 88 % -- 09/21/24 0300 (!) 86/49 -- -- 77 15 96 % -- 09/21/24 0234 97/56 -- -- 76 15 97 % -- 09/21/24 0100 95/51 -- -- 80 14 92 % -- 09/20/24 2300 120/61 -- -- 85 13 94 % -- 09/20/24 2206 119/50 -- -- 84 17 97 % -- 09/20/24 2200 (!) 110/47 -- -- 87 18 97 % -- 09/20/24 2127 97/50 -- -- 93 16 94 % -- 09/20/24 2000 100/54 36.1 ?C (97 ?F) Temporal 91 17 97 % -- 09/20/24 1923 95/59 -- -- 91 -- 97 % -- 09/20/24 1900 (!) 81/61 -- -- 81 15 95 % -- 09/20/24 1800 100/55 -- -- 91 15 98 % -- 09/20/24 1700 93/50 -- -- 77 17 96 % -- 09/20/24 1500 (!) 104/46 -- -- 80 16 -- -- 09/20/24 1400 106/57 -- -- 102 18 -- -- 09/20/24 1300 104/57 -- -- 110 17 95 % -- 09/20/24 1200 108/93 36.1 ?C (97 ?F) Temporal 78 19 93 % -- 09/20/24 1100 103/66 -- -- 87 20 100 % -- 09/20/24 1000 (!) 97/49 -- -- 85 22 99 % -- 09/20/24 0900 (!) 138/121 -- -- 80 16 99 % -- 09/20/24 0800 101/55 36.3 ?C (97.3 ?F) Temporal 82 18 100 % -- 09/20/24 0702 102/83 -- -- 79 19 95 % -- 09/20/24 0700 (!) 64/53 -- -- 83 16 98 % -- Intake/Output Summary (Last 24 hours) at 09/21/2024 0645 Last data filed at 09/21/2024 0600 Gross per 24 hour Intake -- Output 125 ml Net -125 ml I/O this shift: In: - Out: 55 [Drains:55] Last BM: BELL RINGER Diet: Regular PHYSICAL: Physical Exam Vitals and nursing note reviewed. Constitutional: General: She is not in acute distress. Appearance: She is not ill-appearing. HENT: Head: Normocephalic. Comments: ERIKA drain, serosanguinous Mouth/Throat: Mouth: Mucous membranes are moist. Cardiovascular: Rate and Rhythm: Normal rate and regular rhythm. Pulmonary: Effort: Pulmonary effort is normal. Abdominal: Palpations: Abdomen is soft. Tenderness: There is no abdominal tenderness. Skin: General: Skin is warm and dry. Neurological: General: No focal deficit present. Mental Status: She is alert and oriented to person, place, and time. Sutures or yao? Yes O2: / / / Data Review Data CBC with Differential: Lab Results Component Value Date WBC 10.8 (H) 09/20/2024 RBC 3.89 09/20/2024 HGB 10.5 (L) 09/20/2024 HCT 32.9 (L) 09/20/2024 PLT 178 09/20/2024 CMP: Lab Results Component Value Date NA 135 (L) 09/20/2024 K 4.7 09/20/2024 CL 106 09/20/2024 CO2 21 (L) 09/20/2024 BUN 11 09/20/2024 CREATININE 0.72 09/20/2024 GLUCOSE 105 09/20/2024 CALCIUM 8.5 (L) 09/20/2024 BMP: Hepatic Function Panel:Ionized Calcium: No components found for: IONCA Magnesium: No results found for: MG Phosphorus: No results found for: PHOS PT/INR: No results found for: PROTIME, INR PTT: No results found for: APTT[APTT Last 3 Troponin: No results found for: TROPONINI Urine Culture: No components found for: CURINE Blood Culture: No components found for: CBLOOD, CFUNGUSBL Blood Culture from Central Line: No components found for: CBLOODLN Stool Culture: No components found for: CSTOOL Sputum Culture: No components found for: CSPUTUM Sputum Culture for AFB: No components found for: CAFBSM Wound Culture: Radiology: CT head wo IV contrast Result Date: 09/20/2024 Patient Name: CARLA SANCHEZ : 1950 Exam Date/Time: 09/20/2024 04:55 Procedure: CT HEAD WO IV CONTRAST Ordering Provider: MEYER JENNIFER Reason For Exam: PO cranioplasty EXAMINATION: CT of the head without intravenous contrast. EXAM DATE & TIME: 09/20/2024 4:55 AM EDT INDICATION: PO cranioplasty ADDITIONAL INFORMATION: 74-year-old female presents for follow-up after cranioplasty COMPARISON: CT head dated 09/02/2024 LIMITATIONS: None TECHNIQUE: Thin axial imaging of the head was performed without intravenous contrast. Images were reformatted in coronal and sagittal projections using the raw CT data and were interpreted in conjunction with the axial images to render the findings listed below. Dose reduction was employed with automated exposure control. FINDINGS: Brain: Postsurgical changes related to revision of left frontotemporal cranioplasty are seen. No evidence of acute intracranial hemorrhage, mass lesion or acute infarction. There is chronic microvascular change.. Ventricles: Generalized enlargement of the ventricles and sulci is noted without extracerebral collection with mass effect. Paranasal sinuses: The right maxillary sinus is hypoplastic and contains lobulated mucosal thickening. Mastoids: Clear. Skull: Postsurgical changes related to left frontotemporal craniectomy are seen. Cranioplasty is present in the surgical bed. There is evidence for prior right craniotomy. Orbits: No orbital emphysema. Soft tissues: Postsurgical changes are present related to left frontotemporal cranioplasty revision. Surgical drain is present in the operative bed. A small amount of gas is noted anteriorly, just deep to cutaneous surgical yao. 1. Postsurgical changes related to revision of left frontotemporal cranioplasty. 2. No acute intracranial hemorrhage, mass lesion or evidence of acute stroke. 3. Right maxillary sinus disease. Report Dictated on Electronically Signed By: Moe Ordaz MD Electronically Signed Date/Time: 09/20/2024 6:54 AM EDT Patient Active Problem List Diagnosis SDH (subdural hematoma) (HCC) Intracranial hemorrhage (HCC) Infected bone flap, initial encounter (HCC) Intracranial bleed (HCC) Skull defect ASSESSMENT: 74 yo F post cranioplasty after infected bone flap PLAN: Neuro / Spine - Repeat CT head stable - Neurosurgery on board pending recs for ERIKA and discharge - Seizure ppx: none - Pain control: scheduled tylenol - Elevate HOB 30 degrees - Neuro checks q4hr Cardiovascular - Hemodynamically stable - MAP >60 while asleep, >65 while awake, BP Goal <150 SBP - Labetalol/hydralazine prn - Telemetry Pulmonary - Standard O2 protocol - IS FEN/GI - Regular - Zofran PRN -Bowel regimen: scheduled senna, PRN miralax - No acute issues - Monitor I/Os - Goal UOP > 0.5 ml/kg/hr Endocrine - No acute issues Heme - Stable ID MRSA decolonization ordered - ID c/s. Switch vancomycin to doxycycline BID for total 2 weeks Lines/Devices: - PIV Prophylaxis: DVT: None Has DVT PPX been started? No If no, why? ambulatory GI: protonix Pressure Ulcer: OOB Musculoskeletal: WB Status: WBAT Is the patient in restraints?: no Medications Reconciled- Yes [x] NO [], why Disposition: Remain on T2 pending drain removal RESS NOTE Observed: 09/21/2024 6:24 AM Status: COMPLETED Source: [facility] Vancomycin therapy has been discontinued by Aramis Oreilly MD on 09/21/24. Thank you for the consult. Pharmacy signing off for vancomycin dosing. Swati Escobar [facility] Date: 09/21/24 Time: 6:24 AM 30 Observed: 09/21/2024 4:44 AM Status: COMPLETED Source: [facility] Problem: Pain - Adult Goal: Verbalizes/displays adequate comfort level or baseline comfort level Outcome: ProgressingProblem: Safety - Adult Goal: Free from fall injury Outcome: ProgressingProblem: Discharge Planning Goal: Discharge to home or other facility with appropriate resources Outcome: ProgressingProblem: Chronic Conditions and Co-morbidities Goal: Patient's chronic conditions and co-morbidity symptoms are monitored and maintained or improved Outcome: Progressing PROGRESS NOTE Observed: 09/20/2024 11:45 AM Status: COMPLETED Source: [facility] - Infectious Diseases Attending Progress Note Subjective: Following for cranioplasty with previous hx of MRSA infection. Feeling well. Remains in T2. Has drains in place. No headache. Vitals: Patient Vitals for the past 24 hrs: BP Temp Temp src Pulse Resp SpO2 09/20/24 1100 103/66 -- -- 87 20 100 % 09/20/24 1000 (!) 97/49 -- -- 85 22 99 % 09/20/24 0900 (!) 138/121 -- -- 80 16 99 % 09/20/24 0800 101/55 36.3 ?C (97.3 ?F) Temporal 82 18 100 % 09/20/24 0702 102/83 -- -- 79 19 95 % 09/20/24 0700 (!) 64/53 -- -- 83 16 98 % 09/20/24 0600 (!) 86/55 -- -- 90 19 93 % 09/20/24 0507 (!) 97/44 -- -- 84 18 98 % 09/20/24 0400 97/56 -- -- 78 13 98 % 09/20/24 0300 (!) 94/48 -- -- 74 (!) 9 97 % 09/20/24 0200 104/67 -- -- 83 14 99 % 09/20/24 0100 95/52 -- -- 76 15 94 % 09/20/24 0000 90/50 -- -- 76 13 93 % 09/19/24 2300 108/60 -- -- 78 15 97 % 09/19/24 2200 96/60 -- -- 76 16 94 % 09/19/24 2115 99/53 -- -- 91 13 98 % 09/19/24 2000 (!) 89/74 -- -- 100 17 92 % 09/19/24 1900 110/60 -- -- 82 14 93 % 09/19/24 1800 103/68 -- -- 84 16 95 % 09/19/24 1700 105/54 -- -- 89 12 97 % 09/19/24 1600 116/58 -- -- 88 15 97 % 09/19/24 1500 (!) 106/43 -- -- 89 12 96 % 09/19/24 1400 111/61 -- -- 89 12 91 % 09/19/24 1300 103/54 -- -- 95 15 93 % 09/19/24 1215 -- -- -- 80 15 95 % 09/19/24 1200 (!) 86/53 36.6 ?C (97.9 ?F) Temporal 79 13 96 % Physical Exam: Physical Exam Vitals and nursing note reviewed. Constitutional: General: She is not in acute distress. Comments: Standing up at the bedside HENT: Head: Comments: + post-op dressing as well as drain with serosanguinous fluid Right Ear: External ear normal. Left Ear: External ear normal. Nose: Nose normal. Mouth/Throat: Mouth: Mucous membranes are moist. Pharynx: Oropharynx is clear. Eyes: General: No scleral icterus. Extraocular Movements: Extraocular movements intact. Cardiovascular: Rate and Rhythm: Normal rate and regular rhythm. Heart sounds: No murmur heard. Pulmonary: Effort: Pulmonary effort is normal. No respiratory distress. Breath sounds: No wheezing. Abdominal: General: There is no distension. Palpations: Abdomen is soft. Tenderness: There is no abdominal tenderness. Musculoskeletal: Comments: + arthritic joint changes; no synovitis or crepitance of any limb Skin: General: Skin is warm and dry. Coloration: Skin is not jaundiced. Findings: No rash. Neurological: Mental Status: She is alert and oriented to person, place, and time. Cranial Nerves: No cranial nerve deficit. Motor: No weakness. Psychiatric: Mood and Affect: Mood normal. Thought Content: Thought content normal. Labs: Recent Labs 09/19/24 1127 09/20/24 0515 NA 134* 135* K 4.5 4.7 CL 104 106 CO2 24 21* BUN 13 11 CREATININE 0.79 0.72 GLUCOSE 127* 105 CALCIUM 8.4* 8.5* Recent Labs 09/19/24 1024 09/20/24 0515 WBC 5.8 10.8* HGB 10.6* 10.5* HCT 33.0* 32.9* PLT 163 178 Micro: None. Lines: PIV Radiography/Echo/Other: 09/20- CT brain- 1. Postsurgical changes related to revision of left frontotemporal cranioplasty. 2. No acute intracranial hemorrhage, mass lesion or evidence of acute stroke. 3. Right maxillary sinus disease. 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 Will plan to transition to doxycycline 100mg PO BID x 2 weeks at discharge as she has refused PICC/ IV therapy outpatient due to cost. Abx are being used given high risk for post-op infection as per her past history- preventative approach. Ok to transition to doxycycline as she tolerates eating. Will follow. Based on diagnoses and management, combination of acute and chronic problems, exacerbations and/or acuity, this visit should be considered to be of moderate complexity. Sayra Honeycutt MD PROGRESS NOTE Observed: 09/20/2024 10:57 AM Status: COMPLETED Source: [facility] NEUROSURGERY and SPINE FOLLO W-UP NOTE Patient Name: Carla Sanchez Patient : 1950 PCP: MARY SMITH Chief Complaint: skull defect History of Present Ilness: patient POD 1 cranioplasty. She is doing exceptionally well. She reports minimal pain, drains are intact. She reports ambulating well with assist. Past Medical History: Past Medical History: Diagnosis Date Anemia Arthritis Brain bleed ([facility]) 2013, 2021 Diverticulitis Gastric ulcer Leg fracture, right Right arm fracture Seizures ([facility]) 2013 with first craniotomy- while in hospital- none since Thoracic spine fracture ([facility]) Past Surgical History: Past Surgical History: Procedure Laterality Date ABDOMINAL SURGERY 07/2021 on stomach CHOLECYSTECTOMY COLONOSCOPY CRANIOTOMY Left 2013 DILATION AND CURETTAGE OF UTERUS HAND SURGERY Right fracture repiair SMALL INTESTINE SURGERY small part removed UPPER GASTROINTESTINAL ENDOSCOPY Home Medications: Prior to Admission medications Medication Sig Start Date End Date Taking? Authorizing Provider Ascorbic Acid (vitamin C) 500 MG tablet TAKE 1 TABLET BY MOUTH ONCE DAILY AT 10AM 08/30/23 Yes Historical Provider, B Complex Vitamins (VITAMIN B COMPLEX PO) Take by mouth. Yes Historical Provider, baclofen (Lioresal) 10 MG tablet Take 10 mg by mouth 2 times daily as needed. 02/12/24 Yes Historical Provider, Cholecalciferol 25 MCG (1000 UT) tablet dispersible Take by mouth. Yes Historical Provider, Loratadine (CLARITIN PO) Take by mouth. Yes Historical Provider, mupirocin (Bactroban) 2 % ointment Apply topically three times daily. Yes Historical Provider, nystatin (Mycostatin) 729974 UNIT/GM powder Apply topically 2 times daily. Yes Historical Provider, pantoprazole (ProtoNix) 40 MG EC tablet Take 40 mg by mouth daily. Yes Historical Provider, POTASSIUM GLUCONATE PO Take by mouth. Yes Historical Provider, sennosides (Senokot) 8.6 MG tablet Take 2 tablets (17.2 mg) by mouth Nightly as needed for constipation (If no BM in last 24hrs). 07/09/24 07/09/25 Yes Noel Sharp MD TURMERIC PO Take by mouth. Yes Historical Provider, VITAMIN D PO Take by mouth. Historical Provider, Allergies: Ibuprofen, Penicillins, and Prednisone Social History: TOBACCO: reports that she quit smoking about 4 years ago. Her smoking use included cigarettes. She has never used smokeless tobacco. ETOH: reports current alcohol use of about 1.0 standard drink of alcohol per week. RECREATIONAL DRUG USE: Social History Substance and Sexual Activity Drug Use Not Currently Family History: Family History Problem Relation Name Age of Onset Breast cancer Mother Heart disease Father Physical Examination: Vitals: 09/20/24 0900 BP: (!) 138/121 Pulse: 80 Resp: 16 Temp: SpO2: 99% Physical Exam Neurological: Motor: Motor strength is normal. Psychiatric: Speech: Speech normal. Neurological Exam Mental Status Awake, alert and oriented to person, place and time. Oriented to person, place and time. Speech is normal. Language is fluent with no aphasia. Attention and concentration are normal. Fund of knowledge is appropriate for level of education. Motor Strength is 5/5 throughout all four extremities. Sensory Sensation is intact to light touch, pinprick, vibration and proprioception in all four extremities. ERIKA drains; Epidural drain with 125, subgaleal with 40 ml; epidural drain removed, staple placed to close Incision with dressing intact, no significant swelling or drainage Results Labs: Last 24hrs Recent Results (from the past 24 hours) Basic metabolic panel Collection Time: 09/19/24 11:27 AM Result Value Ref Range SODIUM 134 (L) 136 - 145 mmol/L POTASSIUM 4.5 3.5 - 5.1 mmol/L CHLORIDE 104 98 - 107 mmol/L CARBON DIOXIDE 24 23 - 31 mmol/L UREA NITROGEN 13 9 - 23 mg/dL CREATININE 0.79 0.57 - 1.11 mg/dL GLUCOSE 127 (H) 82 - 115 mg/dL CALCIUM 8.4 (L) 8.8 - 10.0 mg/dL ANION GAP 6 3 - 13 mmol/L eGFR 79.1 >60.0 mL/min/1.73m*2 CBC Collection Time: 09/20/24 5:15 AM Result Value Ref Range Auto WBC 10.8 (H) 3.6 - 10.7 10*3/uL RBC 3.89 3.80 - 5.20 10*6/uL Hemoglobin 10.5 (L) 11.7 - 16.0 g/dL Hematocrit 32.9 (L) 35.0 - 47.0 % MCV 84.6 77.0 - 99.0 fL MCH 27.0 26.0 - 34.0 pg MCHC 31.9 30.5 - 36.0 % RDW 14.0 11.5 - 15.0 % Platelets 178 140 - 440 10*3/uL MPV 10.7 9.0 - 12.7 fL Vancomycin, AUC Timed Dosing Collection Time: 09/20/24 5:15 AM Result Value Ref Range VANCOMYCIN, AUC 27.3 ug/mL Basic metabolic panel Collection Time: 09/20/24 5:15 AM Result Value Ref Range SODIUM 135 (L) 136 - 145 mmol/L POTASSIUM 4.7 3.5 - 5.1 mmol/L CHLORIDE 106 98 - 107 mmol/L CARBON DIOXIDE 21 (L) 23 - 31 mmol/L UREA NITROGEN 11 9 - 23 mg/dL CREATININE 0.72 0.57 - 1.11 mg/dL GLUCOSE 105 82 - 115 mg/dL CALCIUM 8.5 (L) 8.8 - 10.0 mg/dL ANION GAP 8 3 - 13 mmol/L eGFR 88.4 >60.0 mL/min/1.73m*2 Radiology Personal review: Ct this am is stable. No significant fluid collections, no shift, no mass effect. ASSESSMENT / PLAN : 74 year old female s/p cranioplasty. She is recovering in usual fashion Continue epidural drain; monitor and record output Continue ICU care PT/OT SCDs for DVT PPX Hopeful for DC in 1-2 days when drain output decreases, PT/OT recs in place. RESS NOTE Observed: 09/20/2024 9:17 AM Status: COMPLETED Source: [facility] Pharmacy to Dose Vancomycin - Progress Note Lab Results Component Value Date CREATININE 0.72 09/20/2024 BUN 11 09/20/2024 WBC 10.8 (H) 09/20/2024 VANCOTROUGH 27.3 09/20/2024 Doses, serum creatinine, and vancomycin levels interfaced automatically to [employer] and data has been analyzed and interpreted. Infectious Diagnosis: SSTI Est CrCl: 90 mL/min (Cockcroft-Gault) Assessment: Current regimen vancomycin 1250 mg every 12 hours (15.1 mg/kg) Predicted AUC = 856 mg/L*hr (goal 400-600 mg/L*hr) PAUC = 100% (probability that AUC is >400 mg/L*hr) Pconc = 86% (probability that Ctrough is above 20 mcg/mL (toxicity)) Plan: Is the current dose therapeutic? [x] No - change current regimen to vancomycin 1500 mg every 24 hours (525 mg/kg) for predicted AUC 526 mg/L*hr, PAUC = 91% , and Pconc* = 11%. Obtain next level on 09/22/24. Trend serum creatinine. Trend AUC using Bayesian Modeling. Orders placed. DATE: 09/20/24 TIME: 9:18 AM Bee Zhu [facility] Clinical Pharmacist Available via Secure Chat CT HEAD WO IV CONTRAST Observed: 025 6:54 AM Status: F Source: [employer] [facility] Patient Name: CARLA SANCHEZ : 1950 Exam Date/Time: 09/20/2024 04:55 Procedure: CT HEAD WO IV CONTRAST Ordering Provider: MEYER JENNIFER Reason For Exam: PO cranioplasty EXAMINATION: CT of the head without intravenous contrast. EXAM DATE AND TIME: 09/20/2024 4:55 AM EDT INDICATION: PO cranioplasty ADDITIONAL INFORMATION: 74-year-old female presents for follow-up after cranioplasty COMPARISON: CT head dated 09/02/2024 LIMITATIONS: None TECHNIQUE: Thin axial imaging of the head was performed without intravenous contrast. Images were reformatted in coronal and sagittal projections using the raw CT data and were interpreted in conjunction with the axial images to render the findings listed below. Dose reduction was employed with automated exposure control. FINDINGS: Brain: Postsurgical changes related to revision of left frontotemporal cranioplasty are seen. No evidence of acute intracranial hemorrhage, mass lesion or acute infarction. There is chronic microvascular change.. Ventricles: Generalized enlargement of the ventricles and sulci is noted without extracerebral collection with mass effect. Paranasal sinuses: The right maxillary sinus is hypoplastic and contains lobulated mucosal thickening. Mastoids: Clear. Skull: Postsurgical changes related to left frontotemporal craniectomy are seen. Cranioplasty is present in the surgical bed. There is evidence for prior right craniotomy. Orbits: No orbital emphysema. Soft tissues: Postsurgical changes are present related to left frontotemporal cranioplasty revision. Surgical drain is present in the operative bed. A small amount of gas is noted anteriorly, just deep to cutaneous surgical yao. IMPRESSION: 1. Postsurgical changes related to revision of left frontotemporal cranioplasty. 2. No acute intracranial hemorrhage, mass lesion or evidence of acute stroke. 3. Right maxillary sinus disease. Report Dictated on Electronically Signed By: Moe Ordaz MD Electronically Signed Date/Time: 09/20/2024 6:54 AM EDT PO cranioplasty PROGRESS NOTE Observed: 09/20/2024 6:37 AM Status: COMPLETED Source: [employer] [facility] Attestation signed by Jorge Alberto Smyth MD at 10/21/2024 8:11 AM ~~~~~~~~~~~~~~~~~~~~~~~~~~~~~~~~~~~~~~~~~~~~~~~~~~~~~~~~~~ Attending physician addendum: I independently saw and evaluated the patient. I personally obtained the ames and critical portion of the history and physical exam. I reviewed and agree with the documentation below. I personally reviewed patient's labs and imaging studies. My findings agree with the below note except for any details corrected. I have examined the patient at the date below. Patient Active Problem List Diagnosis SDH (subdural hematoma) (HCC) Intracranial hemorrhage (HCC) Infected bone flap, initial encounter (HCC) Intracranial bleed (HCC) Skull defect I personally supervised the resident/RETURNED GOODS INSPECTOR/JAKE in the evaluation and development of a treatment plan for this patient on the same day of service as below. I personally discussed the review of systems and interviewed the patient along with performing a physical examination. I reviewed the recent events, imaging, labs, vital signs. In addition, I discussed the patient's condition and treatment options with him/her when possible. I have also reviewed and agree with the past medical, family, and social history unless otherwise noted. All of the patient's questions were answered and family updated when appropriate and possible. A complete review of systems was obtained and is negative except as stated in HPI. Per Dr Oreilly's note. I have evaluated the patient on 09/21/19 Patient's headache improving, remains neuro intact. Hypotensive while sleeping. Will stop IV narcotic pain medications, start regular diet, stop daily labs 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 GERD H/o cholangitis H/o Ortega-en-Y bypass H/o joanie holes Sep 2021 H/o MMA embolization Procedures: 09/19 - Left cranioplasty Management / Plan : Neuro / Spine - Repeat CT head stable - Neurosurgery on board pending recs for ERIKA and discharge - Seizure ppx: none - Pain control: scheduled tylenol. Discontinue PRN oxy, breakthrough dilaudid - Elevate HOB 30 degrees - Neuro checks q4hr Cardiovascular - Hemodynamically stable - BP Goal <150 SBP - Labetalol/hydralazine prn - Telemetry Pulmonary - Standard O2 protocol - IS FEN/GI - Regular - Zofran PRN -Bowel regimen: scheduled senna, PRN miralax - No acute issues - Monitor I/Os - Goal UOP > 0.5 ml/kg/hr Endocrine - No acute issues Heme - Stable ID MRSA decolonization ordered - ID c/s. Vancomycin while inpatient with plan to switch to doxycycline x2 weeks Lines/Devices: - PIV Prophylaxis: DVT: None Has DVT PPX been started? No If no, why? ambulatory GI: protonix Pressure Ulcer: OOB Musculoskeletal: WB Status: WBAT Is the patient in restraints?: no Medications Reconciled- Yes [x] NO [], why Disposition: Likely dc tomorrow pending drain removal Level of Medical Decision Making: risk of morbidity from additional diagnostic testing or treatment due to postoperative management [x]High []Moderate []Low Personally Reviewed/Independently interpreted patient's: [x]Epic notes [x]Radiology studies [x]Labs []EKG []Ordering tests []Other Discussed/ With: [x]Patient/Family [x]RN []Consultants [x]Primary Team []SW/TCC []Other I spent total time of >= 50 minutes reviewing previous notes, test results, and face to face with Carla Sanchez discussing the diagnosis and importance of compliance with the treatment plan as well as documenting on the day of the visit. Time was spent, Reviewing medical record including recent tests and results Ordering prescription medications/tests and procedures Communicating results to the patient/family/caregiver Counseling/educating the patient/family/caregiver Documenting clinical information the patient's electronic record Coordination of care for the patient Performing a medical appropriate exam and evaluation Bulmaro Smyth MD [facility] Trauma, Surgical Critical Care, & General Surgery Division of Trauma Department of Surgery [facility] P Daily SICU Progress Note Resident 09/20/2024 6:37 AM Admit Date: 09/19/2024 HPI: 74 y.o. female presents s/p cranioplasty with Dr. Barcenas 09/19/24. Patient is s/p left craniotomy due to exposed hardware in June 2024 where she was found to have DARBY infection of the flap with osteomyelitis PROCEDURES: Cranioplasty 09/19 INCIDENTAL FINDINGS: none CHIEF COMPLAINT: burning pain PREVIOUS 24 HOUR EVENTS: Post cranioplasty NAEON BP soft overnight Consults: IP CONSULT TO INFECTIOUS DISEASES PHARMACY TO DOSE VANCO MEDICATIONS: Current Facility-Administered Medications: acetaminophen (Tylenol) tablet 1,000 mg, 1,000 mg, Oral, q8h, Aramis Oreilly MD, 1,000 mg at 09/20/24 0507 ascorbic acid (Vitamin C) tablet 500 mg, 500 mg, Oral, Daily, Saira Meyer RETURNED GOODS INSPECTOR - MOT[employer] BUILDER WINDER, 500 mg at 09/19/24 1106 [Held by provider] baclofen (Lioresal) tablet 10 mg, 10 mg, Oral, BID PRN, Saira Meyer, RETURNED GOODS INSPECTOR - MOT[employer] BUILDER WINDER hydrALAZINE (Apresoline) injection 10 mg, 10 mg, IntraVENous, q4h PRN, Evelyne Maurer MD HYDROmorphone (Dilaudid) injection 0.5 mg, 0.5 mg, IntraVENous, q4h PRN, Aramis Oreilly MD, 0.5 mg at 09/19/24 1031 labetalol (Normodyne,Trandate) injection 10 mg, 10 mg, IntraVENous, q4h PRN, Evelyen Maurer MD mupirocin (Bactroban) 2 % ointment, , Nasal, BID, Aramis Oreilly MD, Given at 09/19/24 103 naloxone (Narcan) injection 0.4 mg, 0.4 mg, IntraVENous, q5 min PRN, Aramis Oreilly MD ondansetron ODT (Zofran-ODT) disintegrating tablet 4 mg, 4 mg, Oral, q8h PRN OR ondansetron (Zofran) injection 4 mg, 4 mg, IntraVENous, q6h PRN, Saira Meyer RETURNED GOODS INSPECTOR - LAVONNE oxyCODONE (Roxicodone) immediate release tablet 2.5 mg, 2.5 mg, Oral, q4h PRN OR oxyCODONE (Roxicodone) immediate release tablet 5 mg, 5 mg, Oral, q4h PRN, Aramis Oreilly MD, 5 mg at 09/19/241958 polyethylene glycol (PEG) 3350 (Miralax) packet 17 g, 17 g, Oral, Daily PRN, Saira Dominguezsz, RETURNED GOODS INSPECTOR - MOT[employer] BUILDER WINDER senna-docusate sodium (Senokot-S) 8.6-50 MG tablet 2 tablet, 2 tablet, Oral, Daily, Evelyne Maurer MD sodium chloride 0.9 % infusion, 5-250 mL/hr, IntraVENous, PRN, Saira Welch Orosz, RETURNED GOODS INSPECTOR - MOT[employer] BUILDER WINDER sodium chloride 0.9% (NS) flush 5-40 mL, 5-40 mL, IntraVENous, 2 times per day, Saira Welch Orosz, RETURNED GOODS INSPECTOR - MOTOR BUILDER WINDER sodium chloride 0.9% (NS) flush 5-40 mL, 5-40 mL, IntraVENous, PRN, Saira Dominguezsz, RETURNED GOODS INSPECTOR - MOTOR BUILDER WINDER vancomycin IVPB 1250 mg in 250 mL NS (premix), 1,250 mg, IntraVENous, q12h, Sayra Honeycutt MD, Stopped at 09/20/24 0015 ARE THERE PERTINENT UPDATES TO PAST,FAMILY, OR SOCIAL HISTORY?: No Subjective: No complaints this morning. Ambulating around unit and to CT since last night. Tolerating diet. Review of Systems Objective: Patient Vitals for the past 24 hrs: BP Temp Temp src Pulse Resp SpO2 09/20/24 0600 (!) 86/55 -- -- 90 19 93 % 09/20/24 0507 (!) 97/44 -- -- 84 18 98 % 09/20/24 0400 97/56 -- -- 78 13 98 % 09/20/24 0300 (!) 94/48 -- -- 74 (!) 9 97 % 09/20/24 0200 104/67 -- -- 83 14 99 % 09/20/24 0100 95/52 -- -- 76 15 94 % 09/20/24 0000 90/50 -- -- 76 13 93 % 09/19/24 2300 108/60 -- -- 78 15 97 % 09/19/24 2200 96/60 -- -- 76 16 94 % 09/19/24 2115 99/53 -- -- 91 13 98 % 09/19/24 2000 (!) 89/74 -- -- 100 17 92 % 09/19/24 1900 110/60 -- -- 82 14 93 % 09/19/24 1800 103/68 -- -- 84 16 95 % 09/19/24 1700 105/54 -- -- 89 12 97 % 09/19/24 1600 116/58 -- -- 88 15 97 % 09/19/24 1500 (!) 106/43 -- -- 89 12 96 % 09/19/24 1400 111/61 -- -- 89 12 91 % 09/19/24 1300 103/54 -- -- 95 15 93 % 09/19/24 1215 -- -- -- 80 15 95 % 09/19/24 1200 (!) 86/53 36.6 ?C (97.9 ?F) Temporal 79 13 96 % 09/19/24 1145 -- -- -- 92 22 93 % 09/19/24 1130 -- -- -- 81 13 94 % 09/19/24 1115 105/57 -- -- 77 13 95 % 09/19/24 1100 105/66 -- -- 88 13 94 % 09/19/24 1045 (!) 112/47 -- -- 89 14 94 % 09/19/24 1030 101/59 -- -- 89 15 93 % 09/19/24 1015 121/63 36.7 ?C (98.1 ?F) Temporal 93 22 94 % Intake/Output Summary (Last 24 hours) at 09/20/2024 0637 Last data filed at 09/20/2024 0613 Gross per 24 hour Intake 975.86 ml Output 215 ml Net 760.86 ml I/O this shift: In: 250 [IV Piggyback:250] Out: 165 [Drains:165] Last BM: BELL RINGER Diet: Regular PHYSICAL: Physical Exam Vitals and nursing note reviewed. Constitutional: General: She is not in acute distress. Appearance: She is not ill-appearing. HENT: Head: Normocephalic. Comments: ERIKA drain x2, serosanguinous Mouth/Throat: Mouth: Mucous membranes are moist. Cardiovascular: Rate and Rhythm: Normal rate and regular rhythm. Pulmonary: Effort: Pulmonary effort is normal. Abdominal: Palpations: Abdomen is soft. Tenderness: There is no abdominal tenderness. Skin: General: Skin is warm and dry. Neurological: General: No focal deficit present. Mental Status: She is alert and oriented to person, place, and time. Sutures or yao? Yes O2: RA / / / Data Review Data CBC with Differential: Lab Results Component Value Date WBC 10.8 (H) 09/20/2024 RBC 3.89 09/20/2024 HGB 10.5 (L) 09/20/2024 HCT 32.9 (L) 09/20/2024 PLT 178 09/20/2024 CMP: Lab Results Component Value Date NA 135 (L) 09/20/2024 K 4.7 09/20/2024 CL 106 09/20/2024 CO2 21 (L) 09/20/2024 BUN 11 09/20/2024 CREATININE 0.72 09/20/2024 GLUCOSE 105 09/20/2024 CALCIUM 8.5 (L) 09/20/2024 BMP: Hepatic Function Panel:Ionized Calcium: No components found for: IONCA Magnesium: No results found for: MG Phosphorus: No results found for: PHOS PT/INR: No results found for: PROTIME, INR PTT: No results found for: APTT[APTT Last 3 Troponin: No results found for: TROPONINI Urine Culture: No components found for: CURINE Blood Culture: No components found for: CBLOOD, CFUNGUSBL Blood Culture from Central Line: No components found for: CBLOODLN Stool Culture: No components found for: CSTOOL Sputum Culture: No components found for: CSPUTUM Sputum Culture for AFB: No components found for: CAFBSM Wound Culture: Radiology: No results found. Patient Active Problem List Diagnosis SDH (subdural hematoma) (HCC) Intracranial hemorrhage (HCC) Infected bone flap, initial encounter (HCC) Intracranial bleed (HCC) Skull defect ASSESSMENT: 74 yo F post cranioplasty after infected bone flap PLAN: Neuro / Spine - Repeat CT head stable - Neurosurgery on board pending recs for ERIKA and discharge - Seizure ppx: none - Pain control: scheduled tylenol. Discontinue PRN oxy, breakthrough dilaudid - Elevate HOB 30 degrees - Neuro checks q4hr Cardiovascular - Hemodynamically stable - BP Goal <150 SBP - Labetalol/hydralazine prn - Telemetry Pulmonary - Standard O2 protocol - IS FEN/GI - Regular - Zofran PRN -Bowel regimen: scheduled senna, PRN miralax - No acute issues - Monitor I/Os - Goal UOP > 0.5 ml/kg/hr Endocrine - No acute issues Heme - Stable ID MRSA decolonization ordered - ID c/s. Vancomycin while inpatient with plan to switch to doxycycline x2 weeks Lines/Devices: - PIV Prophylaxis: DVT: None Has DVT PPX been started? No If no, why? ambulatory GI: protonix Pressure Ulcer: OOB Musculoskeletal: WB Status: WBAT Is the patient in restraints?: no Medications Reconciled- Yes [x] NO [], why Disposition: Likely dc tomorrow pending drain removal (HEMOGRAM) Collected: 09/20/2024 5:15 AM Status: F Source: [facility] TYPE CODE TESTS RESULT OUT OF RANGE REFERENCE UNITS LAB [id number] WBC 10.8 High 3.6-10.7 10*3/uL LAB [id number] RBC 3.89 3.80-5.20 10*6/uL LAB [id number] HEMOGLOBIN 10.5 Low 11.7-16.0 g/dL LAB [id number] HEMATOCRIT 32.9 Low 35.0-47.0 % LAB [id number] MCV 84.6 77.0-99.0 fL LAB [id number] MCH 27.0 26.0-34.0 pg LAB [id number] MCHC 31.9 30.5-36.0 % LAB [id number] RDW 14.0 11.5-15.0 % LAB [id number] PLATELET COUNT 178 140-440 10*3/uL LAB [id number] MPV 10.7 9.0-12.7 fL Performed By: #### [id number] ## ## Prize Jacker: ARTURO TANNER ([id number]) [facility] ([facility]) [address] [place] [address] VANCOMYCIN, AUC TIMED DOSING Collected: 09/20/2024 5:15 AM Status: F Source: [facility] TYPE CODE TESTS RESULT OUT OF RANGE REFERENCE UNITS LAB [id number] VANCOMYCIN, AUC 27.3 ug/mL Result Comment: ORDER COMMEN TS: Please draw random level at least >2 hours after the end of the last vancomycin infusion, or 30-minutes before next infusion. Toxicity is seen at concentrations >80-100 ug/mL Therapeutic (Peak) range: 20-40 Therapeutic (Trough) range: 5-10 Performed By: #### [id number] ### # Prize Jacker: ARTURO TANNER ([id number]) [facility] ([facility]) [address] [place] [address] BASIC METABOLIC PANEL Collected: 2024 5:15 AM Status: F Source: [facility] TYPE CODE TESTS RESULT OUT OF RANGE REFERENCE UNITS LAB [id number] SODIUM 135 Low 136-145 mmol/L LAB [id number] POTASSIUM 4.7 3.5-5.1 mmol/L Result Comment: Plasma potas sium values may be up to 0.5 mmol/L lower than serum values. LAB [id number] CHLORIDE 106 98-107 mmol/L LAB [id number] CARBON DIOXIDE 21 Low 23-31 mmol/L LAB [id number] UREA NITROGEN 11 9-23 mg/dL LAB [id number] CREATININE 0.72 0.57-1.11 mg/dL LAB [id number] GLUCOSE 105 82-115 mg/dL LAB [id number] CALCIUM 8.5 Low 8.8-10.0 mg/dL LAB [id number] ANION GAP (VALLE, CALCULATED) 8 3-13 mmol/L LAB [id number] GLOMERULAR FILTRATION RATE ML/MIN/1.73 SQ M.PREDICTED 88.4 >60.0 mL/min/1. 73m*2 Result Comment: Calculation based on the Chronic Kidney Disease Epidemiology Collaboration (CKD-EPI) equation refit without adjustment for race Performed By: #### LAB15 ### # Prize Jacker: ARTURO TANNER ([id number]) [facility] ([address] Observed: 09/20/2024 4:58 AM Status: COMPLETED Source: [facility] Problem: Pain - Adult Goal: Verbalizes/displays adequate comfort level or baseline comfort level Outcome: ProgressingProblem: Safety - Adult Goal: Free from fall injury Outcome: ProgressingProblem: Discharge Planning Goal: Discharge to home or other facility with appropriate resources Outcome: ProgressingProblem: Chronic Conditions and Co-morbidities Goal: Patient's chronic conditions and co-morbidity symptoms are monitored and maintained or improved Outcome: Progressing NURSING NOTE Observed: 09/19/2024 8:00 PM Status: COMPLETED Source: [facility] Pt independently completed 5 laps around unit with supervision of RN. BASIC METABOLIC PANEL Collected: 2024 11:27 AM Status: F Source: [facility] TYPE CODE TESTS RESULT OUT OF RANGE REFERENCE UNITS LAB [id number] SODIUM 134 Low 136-145 mmol/L LAB [id number] POTASSIUM 4.5 3.5-5.1 mmol/L Result Comment: Plasma potas sium values may be up to 0.5 mmol/L lower than serum values. LAB [id number] CHLORIDE 104 98-107 mmol/L LAB [id number] CARBON DIOXIDE 24 23-31 mmol/L LAB [id number] UREA NITROGEN 13 9-23 mg/dL LAB [id number] CREATININE 0.79 0.57-1.11 mg/dL LAB [id number] GLUCOSE 127 High 82-115 mg/dL LAB [id number] CALCIUM 8.4 Low 8.8-10.0 mg/dL LAB [id number] ANION GAP (VALLE, CALCULATED) 6 3-13 mmol/L LAB [id number] GLOMERULAR FILTRATION RATE ML/MIN/1.73 SQ M.PREDICTED 79.1 >60.0 mL/min/1. 73m*2 Result Comment: Calculation based on the Chronic Kidney Disease Epidemiology Collaboration (CKD-EPI) equation refit without adjustment for race Performed By: #### LAB15 ### # Prize Jacker: ARTURO TANNER ([id number]) [facility] ([facility]) [address] [place] [id number] Observed: 09/19/2024 11:01 AM Status: COMPLETED Source: [facility] Patient: Carla Sanchez Procedure Summary Date: 09/19/24 Room / Location: [facility] [place] [address] [place] [address] Operating Room Anesthesia Start: 828 Anesthesia Stop: 100 Procedure: LEFT CRANIOPLASTY (Left) Diagnosis: Other mechanical complication of other internal orthopedic devices, implants and grafts, initial encounter (HCC) Nontraumatic subdural hemorrhage, unspecified (HCC) (Other mechanical complication of other internal orthopedic devices, implants and grafts, initial encounter (HCC) [T84.498A]) (Nontraumatic subdural hemorrhage, unspecified (HCC) [I62.00]) Surgeons: Jim Barcenas MD Responsible Provider: Jermaine Mcdowell MD Anesthesia Type: general ASA Status: 3 Anesthesia Type: general Vitals Value Taken Time BP 112/47 09/19/24 1045 Temp 36.7 ?C (98.1 ?F) 09/19/24 1015 Pulse 88 09/19/24 1059 Resp 13 09/19/24 1059 SpO2 94 % 09/19/24 1059 Vitals shown include unfiled device data. Anesthesia Post Evaluation Patient location during evaluation: PACU Patient participation: complete - patient participated Level of consciousness: awake and alert Pain management: satisfactory to patient Airway patency: patent Dental Injury: no Cardiovascular status: acceptable, blood pressure returned to baseline and hemodynamically stable Respiratory status: acceptable, spontaneous ventilation and room air Hydration status: euvolemic Nausea/Vomiting: controlled No notable events documented. Patient can be discharged once all PACU criteria has been met. ANESTHESIA NOTE Observed: 09/19/2024 11:01 AM Status: COMPLETED Source: [employer] [facility] Patient: Carla Sanchez Procedure Summary Date: 09/19/24 Room / Location: [address] Operating Room Anesthesia Start: 828 Anesthesia Stop: 1006 Procedure: LEFT CRANIOPLASTY (Left) Diagnosis: Other mechanical complication of other internal orthopedic devices, implants and grafts, initial encounter (HCC) Nontraumatic subdural hemorrhage, unspecified (HCC) (Other mechanical complication of other internal orthopedic devices, implants and grafts, initial encounter (HCC) [T84.498A]) (Nontraumatic subdural hemorrhage, unspecified (HCC) [I62.00]) Surgeons: Jim Barcenas MD Responsible Provider: Jermaine Mcdowell MD Anesthesia Type: general ASA Status: 3 Anesthesia Type: general Vitals Value Taken Time BP 112/47 09/19/24 1045 Temp 36.7 ?C (98.1 ?F) 09/19/24 1015 Pulse 88 09/19/24 1059 Resp 13 09/19/24 1059 SpO2 94 % 09/19/24 1059 Vitals shown include unfiled device data. Anesthesia Post Evaluation Patient location during evaluation: PACU Patient participation: complete - patient participated Level of consciousness: awake and alert Pain management: satisfactory to patient Multimodal analgesia pain management approach Airway patency: patent Two or more strategies used to mitigate risk of obstructive sleep apnea Cardiovascular status: acceptable and hemodynamically stable Respiratory status: acceptable, spontaneous ventilation and room air Hydration status: acceptable No notable events documented. MIPS #430 PONV Patient received an inhalational anesthetic (4554F) Patient exhibits three or more risk factors for PONV (4556F) Patient received at aset 2 prophylactic Rx PONV anti-emtic agents of different classes preop and/or intraop (G9775) MIPS # 424 Perioperative Temperature Management Anesthesia time was 60 minutes or longer (4255F) Anesthesai administered was General (inhalational or TIVA) or Neuraxial block (X0424) At least one body temperature greater than 95.8F/35.5C achieved within the 30 mins immediately prior to or the 15 minutes immediately following anesthesia end time (G9771) MIPS #477 Multimodal Pain Management Not emergent case Patient was administered multimodal pain management (two or more drugs and/or interventions excluding systemic opioids) in the periopeartive period occurring at some time between 6 hours prior to anesthesia start time until discharged from PACU (G2148) [facility] #404 Anesthesiology Smoking Abstinence The patient is not a current smoker (e.g. cigarette, cigar, pipe, e-cigarette/vaping/marijuana) If no stop here (XX404) I completed my handoff to the receiving clinician during which we: 1. Identified the patient 2. Identified the responsible provider 3. Reviewed the pertinent medical history 4. Discussed the surgical course 5. Reviewed intra-op anesthesia management and issues during anesthesia 6. Set expectations for post-procedure period 7. Allowed opportunity for questions and acknowledgement of understanding. PROGRESS NOTE Observed: 09/19/2024 10:58 AM Status: COMPLETED Source: [facility] Pharmacy Managed Vancomycin Dosing Service Consult Note Consult Date: 09/19/24 Patient Name: Carla Sanchez Allergies: Ibuprofen, Penicillins, and Prednisone Age: 74 y.o. Sex: female Estimated body mass index is 28.51 kg/m? as calculated from the following: Height as of 09/12/24: 1.702 m (5' 7). Weight as of 09/12/24: 82.6 kg (182 lb). DW: 82.6 kg Lab Results Component Value Date CREATININE 0.59 07/09/2024 CREATININE 0.57 07/08/2024 BUN 10 07/09/2024 BUN 9 07/08/2024 WBC 6.3 07/09/2024 WBC 5.9 07/08/2024 Calculated CrCl: 100 mL/min (however this is calculated from creatinine from 07/2024) (Cockcroft-Gault) Consulted By: Sayra Honeycutt MD Infectious Diagnosis: SSTI (AUC Goal 400-600 mg/L*hr) Random Vancomycin Level Due: 09/20/2024 with morning labs Antimicrobials: Patient recently received an antibiotic (last 12 hours) Date/Time Action Medication Dose 09/19/24 1032 Given mupirocin (Bactroban) 2 % ointment 09/19/24 0937 Given bacitracin-polymyxin b (Polysporin) ointment 1 Application 09/19/24 0842 Given clindamycin in D5W (Cleocin) IVPB 900 mg 900 mg Assessment/Plan: Doses, serum creatinine, and vancomycin levels interfaced automatically to [employer] and data has been analyzed and interpreted. Start Vancomycin 1750 mg as one time loading dose (21 mg/kg) Followed by Vancomycin 1250 mg every 12 hours based on patient age, weight, renal function, and infectious diagnosis (15.1 mg/kg). Predicted AUC = 585 mg/L*hr (goal 400-600 mg/L*hr) PAUC = 89% (probability that AUC is >400 mg/L*hr) Pconc = 29% (probability that Ctrough is above 20 mcg/mL (toxicity)) Will assess AUC level on 09/20 and adjust as appropriate. Trend serum creatinine. Orders placed. Thank you for this consult. Please secure text or call with questions. DATE: 09/19/24 TIME: 10:36 AM Julián Cagle PharmD Clinical Pharmacist Available via Secure Chat CONSULT Observed: 09/19/2024 10:24 AM Status: COMPLETED Source: [facility] - Infectious Diseases Attending Consult Note Reason for Consult: Abx mgmt History of Present Illness: 74 y/o F with hx of cholangitis. E coli/ C perfringens BSI managed through [facility] in 10/2023 (cipro/flagyl) with PTHC and ultimately internal biliary stent, hx ESBL Klebsiella BSI/ cholangitis (ertapenem 08/2023), hx Ortega-en-Y gastric bypass (2021), hx SDH remotely (2013 or 2014) with previous craniotomy--> developed an acute SDH in 09/2021 requiring joanie hole drainage by Dr. Barcenas along with MMA embolization. She presented to Neurosurgery outpatient in 04/2024 with an area of the L forehead with exposed metal with bleeding. A CT was ordered given it was not in the region of the 2021 procedures. It showed craniotomy flaps on the right and left; + hardware for the L craniotomy flap appears very close to the level of skin. She underwent L craniectomy of all hardware and bone flap on 06/27/[address] Barcenas. The underside of the scalp had purulent material grew MRSA. Epidural space, bur hole, and bone flap were all sent for cx--> grew MRSA. She was placed on vancomycin x 6 weeks--> 08/08/24. She had been receiving abx through [facility]. She was readmitted after suffering a post-op L SDH hematoma that was medically managed. She has had some cognitive changes and speech issues related to this issue. She finished abx with a plan for 2 weeks of post-op abx after repeat cranioplasty. She did not want to have vancomycin with PICC given cost concerns as well as need placement. We agreed upon doxycycline PO x2 weeks. She underwent cranioplasty today. She is just starting to eat. Past Medical History: Past Medical History: Diagnosis Date Anemia Arthritis Brain bleed ([facility]) 2013, 2021 Diverticulitis Gastric ulcer Leg fracture, right Right arm fracture Seizures ([facility]) 2013 with first craniotomy- while in hospital- none since Thoracic spine fracture ([facility]) Past Surgical History: Past Surgical History: Procedure Laterality Date ABDOMINAL SURGERY 07/2021 on stomach CHOLECYSTECTOMY COLONOSCOPY CRANIOTOMY Left 2013 DILATION AND CURETTAGE OF UTERUS HAND SURGERY Right fracture repiair SMALL INTESTINE SURGERY small part removed UPPER GASTROINTESTINAL ENDOSCOPY Current Medications: Current Facility-Administered Medications Medication Dose Route Frequency Provider Last Rate Last Admin acetaminophen (Tylenol) tablet 1,000 mg 1,000 mg Oral q8h Aramis Oreilly MD ascorbic acid (Vitamin C) tablet 500 mg 500 mg Oral Daily Saira Meyer APRN - [employer] [Held by provider] baclofen (Lioresal) tablet 10 mg 10 mg Oral BID PRN Saira Meyer APRN - [employer] hydrALAZINE (Apresoline) injection 10 mg 10 mg IntraVENous q4h PRN Evelyne Maurer MD HYDROmorphone (Dilaudid) injection 0.5 mg 0.5 mg IntraVENous q4h PRN Aramis Oreilly MD labetalol (Normodyne,Trandate) injection 10 mg 10 mg IntraVENous q4h PRN Evelyne Maurer MD mupirocin (Bactroban) 2 % ointment Nasal BID Aramis Oreilly MD naloxone (Narcan) injection 0.4 mg 0.4 mg IntraVENous q5 min PRN Aramis Oreilly MD nystatin (Mycostatin) cream Topical BID Saira DominguezszGINNA CNP ondansetron ODT (Zofran-ODT) disintegrating tablet 4 mg 4 mg Oral q8h PRN GINNA Verma CNP Or ondansetron (Zofran) injection 4 mg 4 mg IntraVENous q6h PRN Saira Meyer, GINNA - LAVONNE oxyCODONE (Roxicodone) immediate release tablet 2.5 mg 2.5 mg Oral q4h PRN Aramis Oreilly MD Or oxyCODONE (Roxicodone) immediate release tablet 5 mg 5 mg Oral q4h PRN Aramis Oreilly MD polyethylene glycol (PEG) 3350 (Miralax) packet 17 g 17 g Oral Daily PRN Saira Meyer, GINNA - LAVONNE senna-docusate sodium (Senokot-S) 8.6-50 MG tablet 2 tablet 2 tablet Oral Daily Evelyne Maurre MD sodium chloride 0.9 % infusion 75 mL/hr IntraVENous Continuous Evelyne Maurer MD vancomycin (Vancocin) 1750 mg in NS 500 mL IVPB (premix) 20 mg/kg IntraVENous q12h Evelyne Maurer MD Allergies: Allergies Allergen Reactions Ibuprofen Other Reaction(s): Other, Other (See Comments), Unknown Unable to take 2nd to risk of GI and brain bleed per pt Penicillins Rash Other Reaction(s): Unknown; tolerates cefazolin from 09/2021 brain surgery Prednisone Rash Other Reaction(s): Unknown Social History: Social History Socioeconomic History Marital status: Spouse name: Not on file Number of children: Not on file Years of education: Not on file Highest education level: Not on file Occupational History Not on file Tobacco Use Smoking status: Former Current packs/day: 0.00 Types: Cigarettes Quit date: 10/27/2019 Years since quittin.9 Smokeless tobacco: Never Vaping Use Vaping status: Never Used Substance and Sexual Activity Alcohol use: Yes Alcohol/week: 1.0 standard drink of alcohol Types: 1 Standard drinks or equivalent per week Comment: rare-holidays or special occ Drug use: Not Currently Sexual activity: Not on file Other Topics Concern Not on file Social History Narrative Not on file Social Drivers of Health Financial Resource Strain: Low Risk (08/12/2023) Received from [facility] Overall Financial Resource Strain (CARDIA) Difficulty of Paying Living Expenses: Not hard at all Food Insecurity: No Food Insecurity (07/09/2024) Hunger Vital Sign Worried About Running Out of Food in the Last Year: Never true Ran Out of Food in the Last Year: Never true Transportation Needs: No Transportation Needs (07/09/2024) PRAPARE - Transportation Lack of Transportation (Medical): No Lack of Transportation (Non-Medical): No Physical Activity: Not on file Stress: Not on file Social Connections: Not on file Intimate Partner Violence: Not At Risk (07/09/2024) Humiliation, Afraid, Rape, and Kick questionnaire Fear of Current or Ex-Partner: No Emotionally Abused: No Physically Abused: No Sexually Abused: No Housing Stability: High Risk (07/09/2024) Housing Stability Vital Sign Unable to Pay for Housing in the Last Year: No Number of Times Moved in the Last Year: 2 Homeless in the Last Year: No Family History: Family History Problem Relation Name Age of Onset Breast cancer Mother Heart disease Father Review of Systems: Review of Systems Constitutional: Positive for activity change. Negative for fatigue and fever. HENT: Negative for congestion and mouth sores. Eyes: Negative for redness and visual disturbance. Respiratory: Negative for cough and shortness of breath. Cardiovascular: Negative for chest pain and leg swelling. Gastrointestinal: Negative for abdominal pain and diarrhea. Genitourinary: Negative for flank pain and frequency. Musculoskeletal: Negative for arthralgias and back pain. Skin: Negative for color change and rash. Allergic/Immunologic: Negative for immunocompromised state. Neurological: Positive for headaches. Negative for seizures. Hematological: Negative. Psychiatric/Behavioral: Negative. Vitals: Patient Vitals for the past 24 hrs: BP Temp Pulse SpO2 09/19/24 0633 123/59 36 ?C (96.8 ?F) 84 94 % Physical Exam: Physical Exam Vitals and nursing note reviewed. Constitutional: General: She is not in acute distress. Comments: Eating lunch post-op HENT: Head: Comments: + post-op dressing as well as drain with serosanguinous fluid Right Ear: External ear normal. Left Ear: External ear normal. Nose: Nose normal. Mouth/Throat: Mouth: Mucous membranes are moist. Pharynx: Oropharynx is clear. Eyes: General: No scleral icterus. Extraocular Movements: Extraocular movements intact. Cardiovascular: Rate and Rhythm: Normal rate and regular rhythm. Heart sounds: No murmur heard. Pulmonary: Effort: Pulmonary effort is normal. No respiratory distress. Breath sounds: No wheezing. Abdominal: General: There is no distension. Palpations: Abdomen is soft. Tenderness: There is no abdominal tenderness. Musculoskeletal: Comments: + arthritic joint changes; no synovitis or crepitance of any limb Skin: General: Skin is warm and dry. Coloration: Skin is not jaundiced. Findings: No rash. Neurological: Mental Status: She is alert and oriented to person, place, and time. Cranial Nerves: No cranial nerve deficit. Motor: No weakness. Psychiatric: Mood and Affect: Mood normal. Thought Content: Thought content normal. Labs: No results for input(s): NA, K, CL, CO2, BUN, CREATININE, GLUCOSE, CALCIUM, PROT, BILITOT, ALKPHOS, AST, ALT, PROCAL in the last 72 hours. No lab exists for component: LABALBU No results for input(s): WBC, HGB, HCT, PLT, GRANULOCYTES, LYMPHOPCT, MONOPCT, LABEOS, BASOPCT, NEUTROABS in the last 72 hours. Micro: None. Lines: PIV Radiography/Echo/Other: No new imaging. 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 Vancomycin use post-op- pharmacy consulted for AUC dosing. Will plan to transition to doxycycline 100mg PO BID x 2 weeks at discharge as she has refused PICC/ IV therapy outpatient due to cost. Abx are being used given high risk for post-op infection as per her past history- preventative approach. D/w SICU on rounds. Will follow. Total critical care time provided was 35 minutes. This time is exclusive of time spent performing procedures. Sayra Honeycutt MD CBC (HEMOGRAM) Collected: 09/19/2024 10:24 AM Status : F Source: [facility] TYPE CODE TESTS RESULT OUT OF RANGE REFERENCE UNITS LAB [id number] WBC 5.8 3.6-10.7 10*3/uL LAB [id number] RBC 3.93 3.80-5.20 10*6/uL LAB [id number] HEMOGLOBIN 10.6 Low 11.7-16.0 g/dL LAB [id number] HEMATOCRIT 33.0 Low 35.0-47.0 % LAB [id number] MCV 84.0 77.0-99.0 fL LAB [id number] MCH 27.0 26.0-34.0 pg LAB [id number] MCHC 32.1 30.5-36.0 % LAB [id number] RDW 14.2 11.5-15.0 % LAB [id number] PLATELET COUNT 163 140-440 10*3/uL LAB [id number] MPV 11.3 9.0-12.7 fL Performed By: #### [id number] ## ## Prize Jacker: ARTURO TANNER ([phone]) [address] PROCEDURE NOTE Observed: 09/19/2024 8:49 AM Status: COMPLETED Source: [facility] Airway Date/Time: 09/19/2024 8:40 AM Urgency: scheduled Airway not difficult General Information and Staff Patient location during procedure: Procedural Resident/STORE RECEIVING SPECIALIST: Goran Francis CRNA Performed: SRNA Indications and Patient Condition Indications for airway management: anesthesia Sedation level: Asleep Preoxygenated: yes Patient position: sniffing Mask difficulty assessment: 1 - vent by mask Final Airway Details Final airway type: endotracheal airway Successful airway: ETT Cuffed: yes Successful intubation technique: direct laryngoscopy Facilitating devices/methods: intubating stylet Endotracheal tube insertion site: oral Blade: Marycarmen Blade size: #3 ETT size (mm): 7.0 Cormack-Lehane Classification: grade I - full view of glottis Placement verified by: chest auscultation and capnometry Measured from: lips ETT to lips (cm): 21 Number of attempts at approach: 1 Additional Comments atraumatic CONSULT Observed: 09/19/2024 8:30 AM Status: COMPLETED Source: [employer] [facility] Attestation signed by Jorge Alberto Smyth MD at 09/21/2024 5:52 PM ~~~~~~~~~~~~~~~~~~~~~~~~~~~~~~~~~~~~~~~~~~~~~~~~~~~~~~~~~~~ Attending physician addendum: I independently saw and evaluated the patient. I personally obtained the ames and critical portion of the history and physical exam. I reviewed and agree with the documentation below. I personally reviewed patient's labs and imaging studies. My findings agree with the below note except for any details corrected. A complete review of systems was obtained and is negative except as stated in HPII have examined the patient at the date below. Patient Active Problem List Diagnosis SDH (subdural hematoma) (HCC) Intracranial hemorrhage (HCC) Infected bone flap, initial encounter (HCC) Intracranial bleed (HCC) Skull defect Per Dr Oreilly's note. I have evaluated the patient on 09/19/24 Chief complain: headache HPI: 74 y.o. female POD#0 s/p Left cranioplasty Problem list: Infected bone flap, MRSA osteomyelitis History of craniotomy for evacuation of SDH GERD H/o cholangitis H/o Ortega-en-Y bypass H/o joanie holes Sep 2021 H/o MMA embolization Procedures: 09/19 - Left cranioplasty Management / Plan : Neuro / Spine - Repeat CT head in AM - Neurosurgery consulted - Seizure ppx: none - Pain control: scheduled tylenol, PRN oxy, breakthrough dilaudid - Elevate HOB 30 degrees - Neuro checks q1hr Cardiovascular - Hemodynamically stable - BP Goal <150 SBP - Labetalol/hydralazine prn - Telemetry Pulmonary - Standard O2 protocol - IS FEN/GI - CLD when more awake - Zofran PRN - Daily BMP, CBC, Mg -Bowel regimen: scheduled senna, PRN miralax - No acute issues - Monitor I/Os - Goal UOP > 0.5 ml/kg/hr Endocrine - No acute issues Heme - Post op labs ID MRSA decolonization ordered - ID c/s. Vancomycin while unable to eat with plan to switch to doxycycline x2 weeks Lines/Devices: - PIV Prophylaxis: DVT: SCDs, no chemoppx Has DVT PPX been started? Yes If no, why?post crani GI: Protonix Pressure Ulcer: Continue to monitor, q2 turns Musculoskeletal: - All extremities WBAT Level of Medical Decision Making: risk of morbidity from additional diagnostic testing or treatment due to postoperative management []High [x]Moderate []Low Personally Reviewed/Independently interpreted patient's: [x]Epic notes [x]Radiology studies [x]Labs []EKG []Ordering tests []Other Discussed/ With: [x]Patient/Family [x]RN []Consultants [x]Primary Team []SW/TCC []Other I spent total time of >= 60 minutes reviewing previous notes, test results, and face to face with Carla Sanchez discussing the diagnosis and importance of compliance with the treatment plan as well as documenting on the day of the visit. Time was spent, Reviewing medical record including recent tests and results Ordering prescription medications/tests and procedures Communicating results to the patient/family/caregiver Counseling/educating the patient/family/caregiver Documenting clinical information the patient's electronic record Coordination of care for the patient Performing a medical appropriate exam and evaluation Bulmaro Smyth MD FACS Trauma, Surgical Critical Care, & General Surgery Division of Trauma Department of Surgery [facility] P [facility] SICU H&P 09/19/2024 8:45 AM Attending: Dr. Smyth Chief Complaint: No chief complaint on file. History of Present Illness: 74 y.o. female presents s/p cranioplasty with Dr. Barcenas 09/19/24. 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 She has finished a course of IV antibiotics and was cleared by ID for cranioplasty. Patient states burning from her head. Past Medical History: Diagnosis Date Anemia Arthritis Brain bleed ([facility]) 2013, 2021 Diverticulitis Gastric ulcer Leg fracture, right Right arm fracture Seizures ([facility]) 2013 with first craniotomy- while in hospital- none since Thoracic spine fracture ([facility]) Past Surgical History: Procedure Laterality Date ABDOMINAL SURGERY 07/2021 on stomach CHOLECYSTECTOMY COLONOSCOPY CRANIOTOMY Left 2013 DILATION AND CURETTAGE OF UTERUS HAND SURGERY Right fracture repiair SMALL INTESTINE SURGERY small part removed UPPER GASTROINTESTINAL ENDOSCOPY Family History Problem Relation Name Age of Onset Breast cancer Mother Heart disease Father Social History Socioeconomic History Marital status: Spouse name: Not on file Number of children: Not on file Years of education: Not on file Highest education level: Not on file Occupational History Not on file Tobacco Use Smoking status: Former Current packs/day: 0.00 Types: Cigarettes Quit date: 10/27/2019 Years since quittin.9 Smokeless tobacco: Never Vaping Use Vaping status: Never Used Substance and Sexual Activity Alcohol use: Yes Alcohol/week: 1.0 standard drink of alcohol Types: 1 Standard drinks or equivalent per week Comment: rare-holidays or special occ Drug use: Not Currently Sexual activity: Not on file Other Topics Concern Not on file Social History Narrative Not on file Social Drivers of Health Financial Resource Strain: Low Risk (08/12/2023) Received from [facility] Overall Financial Resource Strain (CARDIA) Difficulty of Paying Living Expenses: Not hard at all Food Insecurity: No Food Insecurity (07/09/2024) Hunger Vital Sign Worried About Running Out of Food in the Last Year: Never true Ran Out of Food in the Last Year: Never true Transportation Needs: No Transportation Needs (07/09/2024) PRAPARE - Transportation Lack of Transportation (Medical): No Lack of Transportation (Non-Medical): No Physical Activity: Not on file Stress: Not on file Social Connections: Not on file Intimate Partner Violence: Not At Risk (07/09/2024) Humiliation, Afraid, Rape, and Kick questionnaire Fear of Current or Ex-Partner: No Emotionally Abused: No Physically Abused: No Sexually Abused: No Housing Stability: High Risk (07/09/2024) Housing Stability Vital Sign Unable to Pay for Housing in the Last Year: No Number of Times Moved in the Last Year: 2 Homeless in the Last Year: No Prior to Admission medications Medication Sig Start Date End Date Taking? Authorizing Provider Ascorbic Acid (vitamin C) 500 MG tablet TAKE 1 TABLET BY MOUTH ONCE DAILY AT 10AM 08/30/23 Yes Historical Provider, B Complex Vitamins (VITAMIN B COMPLEX PO) Take by mouth. Yes Historical Provider, baclofen (Lioresal) 10 MG tablet Take 10 mg by mouth 2 times daily as needed. 02/12/24 Yes Historical Provider, Cholecalciferol 25 MCG (1000 UT) tablet dispersible Take by mouth. Yes Historical Provider, Loratadine (CLARITIN PO) Take by mouth. Yes Historical Provider, mupirocin (Bactroban) 2 % ointment Apply topically three times daily. Yes Historical Provider, nystatin (Mycostatin) 489829 UNIT/GM powder Apply topically 2 times daily. Yes Historical Provider, pantoprazole (ProtoNix) 40 MG EC tablet Take 40 mg by mouth daily. Yes Historical Provider, POTASSIUM GLUCONATE PO Take by mouth. Yes Historical Provider, sennosides (Senokot) 8.6 MG tablet Take 2 tablets (17.2 mg) by mouth Nightly as needed for constipation (If no BM in last 24hrs). 07/09/24 07/09/25 Yes Noel Sharp MD TURMERIC PO Take by mouth. Yes Historical Provider, VITAMIN D PO Take by mouth. Historical Provider, Allergies Allergen Reactions Ibuprofen Other Reaction(s): Other, Other (See Comments), Unknown Unable to take 2nd to risk of GI and brain bleed per pt Penicillins Rash Other Reaction(s): Unknown; tolerates cefazolin from 09/2021 brain surgery Prednisone Rash Other Reaction(s): Unknown Who is healthcare POA or next of kin? Sister Erica Does the patient have a DNR? No Living Will? No INITIAL VITALS: BP 123/59 Pulse 84 Temp 36 ?C (96.8 ?F) SpO2 94% Review of Systems Neurological: Negative for weakness, light-headedness, numbness and headaches. Physical Exam Vitals and nursing note reviewed. Constitutional: Comments: Somnolent HENT: Head: Normocephalic. Comments: ERIKA drain x2, serosanguinous Mouth/Throat: Mouth: Mucous membranes are dry. Cardiovascular: Rate and Rhythm: Normal rate and regular rhythm. Pulmonary: Effort: Pulmonary effort is normal. Abdominal: Palpations: Abdomen is soft. Tenderness: There is no abdominal tenderness. Skin: General: Skin is warm and dry. Neurological: General: No focal deficit present. CBC: No results found for: WBC, RBC, HGB, HCT, MCV, MCH, MCHC, RDW, PLT, MPV BMP: No results found for: NA, K, CL, CO2, BUN, CREATININE, CALCIUM, LABGLOM, GLUCOSE, GLU Urine Toxicology: No components found for: IAMMENTA, IBARBIT, IBENZO, ICOCAINE, IMARTHC, IOPIATES, IPHENCYC IV Access: PIV NG/OG: No Ngo: No Radiology: No results found. ASSESSMENT: Patient Active Problem List Diagnosis SDH (subdural hematoma) (HCC) Intracranial hemorrhage (HCC) Infected bone flap, initial encounter (HCC) Intracranial bleed (HCC) Skull defect PLAN: PLAN: Neuro / Spine - Repeat CT head in AM - Neurosurgery consulted - Seizure ppx: none - Pain control: scheduled tylenol, PRN oxy, breakthrough dilaudid - Elevate HOB 30 degrees - Neuro checks q1hr Cardiovascular - Hemodynamically stable - BP Goal <150 SBP - Labetalol/hydralazine prn - Telemetry Pulmonary - Standard O2 protocol - IS FEN/GI - CLD when more awake - Zofran PRN - Daily BMP, CBC, Mg -Bowel regimen: scheduled senna, PRN miralax - No acute issues - Monitor I/Os - Goal UOP > 0.5 ml/kg/hr Endocrine - No acute issues Heme - Post op labs ID MRSA decolonization ordered - ID c/s. Vancomycin while unable to eat with plan to switch to doxycycline x2 weeks Lines/Devices: - PIV Prophylaxis: DVT: SCDs, no chemoppx Has DVT PPX been started? Yes If no, why?post crani GI: Protonix Pressure Ulcer: Continue to monitor, q2 turns Musculoskeletal: - All extremities WBAT NOTE Observed: 09/19/2024 8:29 AM Status: COMPLETED Source: [facility] OPERATIVE NOTE Patient Name: Carla Sanchez : 1950 DATE OF PROCEDURE: 09/19/2024 SURGEON: Jim Barcenas MD MATERIAL FLOW ANALYST: Saira Meyer CNP PREOPERATIVE DIAGNOSES: Left cranial defect POSTOPERATIVE DIAGNOSES: Same PROCEDURE: Left cranioplasty ANESTHESIA: General ESTIMATED BLOOD LOSS: 30 INDICATION FOR PROCEDURE: Mrs. Sanchez is a 74-year-old female with a history of left craniotomy for subdural hematoma years ago. The cranial plates eroded through the skin near her forehead and exposed the bone flap. It was removed and she presents for cranioplasty. Risks and benefits of the procedure were discussed with her, including infection. She wished to proceed. DESCRIPTION OF PROCEDURE: Patient was brought to the operative room general endotracheal anesthesia was induced. She is on supine operative table her head rested on a donut. Her entire head was shaved at her request the left cranial incision was marked and she was prepped and draped in the door sterile fashion. After proper timeout identifying the patient and the site of surgery type surgery skin incision was made Joaquin clips applied to the skin edges for hemostasis. The skin flap was carefully dissected free from the underlying dura. When the entire craniotomy was exposed we thoroughly irrigated out the entire area. The synthetic implant was soaking in Betadine. We placed a subdural drain and then Ezio plates and screws were used to secure the implant to the skull. The temporalis was closed with interrupted 2-0 Vicryl sutures. The galea was then closed with interrupted 2-0 Vicryl sutures yao on the skin. There were 1 area where the skin was very thin and was closed with 3-0 nylon vertical mattress sutures. A subgaleal drain was also placed. Both drains were secured with 2-0 Vicryl suture. Sterile head wrap was placed. She was extubated taken to the ICU in stable fashion. There was no nurses resident failed to assist the case, the nurse practitioner assisted to provide suction and retraction assistance with opening and closing to the case to be performed safely. ORY AND PHYSICAL NOTE Observed: 09/02 7:21 AM Status: COMPLETED Source: [facility] History Of Present Illness Carla Sanchez is a 74 y.o. female presenting with a left cranial defect. She has been cleared by ID for a cranioplasty. Past Medical History She has a past medical history of Anemia, Arthritis, Brain bleed (HCC), Diverticulitis, Gastric ulcer, Leg fracture, right, Right arm fracture, Seizures (HCC), and Thoracic spine fracture (HCC). Surgical History She has a past surgical history that includes Abdominal surgery (07/2021); Dilation and curettage of uterus; Hand surgery (Right); Craniotomy (Left, 2014); Cholecystectomy; Small intestine surgery; Colonoscopy; and Upper gastrointestinal endoscopy. Social History She reports that she quit smoking about 4 years ago. Her smoking use included cigarettes. She has never used smokeless tobacco. She reports current alcohol use of about 1.0 standard drink of alcohol per week. She reports that she does not currently use drugs. Allergies Ibuprofen, Penicillins, and Prednisone Medications No medications prior to admission. Review of Systems Physical Exam 09/06 RUE and RLE Last Recorded Vitals There were no vitals taken for this visit. Relevant Results L cranial defect on CT Assessment/Plan Active Problems: There are no active Hospital Problems. L cranial defect L cranioplasty Risks/Benefits of the surgery have been discussed with the patient including but not limited to stroke, seizures, infection, hemorrhage, speech difficulty, permanent weakness and . Pt and family understand and agree to the procedure BLOOD TYPE AND SCREEN GEL Collected: 09/12/2024 12:56 PM Status: F Source: [facility] TYPE CODE TESTS RESULT OUT OF RANGE REFERENCE UNITS LAB [id number] ABO GROUPING O LAB [id number] RH TYPE IN BLOOD POS LAB [id number] ANTIBODY SCREEN NEG Performed By: #### [id number] ## ## Prize Jacker: ARTURO TANNER ([id number]) [facility] ([facility]) [address] [place] [address] ANESTHESIA NOTE Observed: 09/12/2024 12:37 PM Status: COMPLETED Source: [facility] [employer] [facility] Patient: Carla Sanchez Procedure Information Date/Time: 09/19/24829 Procedure: LEFT CRANIOPLASTY (Left) - 2 HOUR CASE Location: [address] Operating Room Surgeons: Jim Barcenas MD Relevant Problems No relevant active problems Past Medical History: Past Medical History: No date: Anemia No date: Arthritis No date: Brain bleed (HCC) Comment: 2021 No date: Diverticulitis No date: Gastric ulcer No date: Leg fracture, right No date: Right arm fracture No date: Seizures (HCC) Comment: 2013 with first craniotomy- while in hospital- none since No date: Thoracic spine fracture (HCC) Past Surgical History: Past Surgical History: 07/2021: ABDOMINAL SURGERY Comment: on stomach No date: CHOLECYSTECTOMY No date: COLONOSCOPY 2014: CRANIOTOMY; Left No date: DILATION AND CURETTAGE OF UTERUS No date: HAND SURGERY; Right Comment: fracture repiair No date: SMALL INTESTINE SURGERY Comment: small part removed No date: UPPER GASTROINTESTINAL ENDOSCOPY Social History: TOBACCO: reports that she quit smoking about 4 years ago. Her smoking use included cigarettes. She has never used smokeless tobacco. ETOH: reports current alcohol use of about 1.0 standard drink of alcohol per week. Social History Substance and Sexual Activity Drug Use Not Currently Family History: Family History Problem Relation Name Age of Onset Breast cancer Mother Heart disease Father Screening: Postmenopausal Clinical information reviewed: Tobacco Allergies Meds Med Hx Surg Hx OB Status Fam Hx Soc Hx Physical Exam Airway Mallampati: II TM distance: <3 FB Neck ROM: full Mouth Open: normal Cardiovascular Dental (+) Missing, Upper Dentures dentition normal Pulmonary Abdominal Anesthesia Plan patient is NPO appropriate Any family history or previous problems with anesthesia no ASA 3 general Any family history or previous problems with anesthesia no The patient is not a current smoker. Anesthetic plan and risks discussed with patient. Use of blood products discussed with who consented to blood products. Anesthesia [place] Considerations ?? Art line IZZY Screening Labs: Lab Results Component Value Date WBC 6.3 07/09/2024 HGB 10.1 (L) 07/09/2024 HCT 32.0 (L) 07/09/2024 MCV 93.6 07/09/2024 PLT 147 07/09/2024 Lab Results Component Value Date NA 139 07/09/2024 K 3.8 07/09/2024 CL 107 07/09/2024 CO2 27 07/09/2024 BUN 10 07/09/2024 CREATININE 0.59 07/09/2024 GLUCOSE 102 07/09/2024 CALCIUM 8.1 (L) 07/09/2024 PROT 7.1 06/23/2024 ALKPHOS 77 06/23/2024 AST 65 (H) 06/23/2024 ALT 57 (H) 06/23/2024 EGFR >90.0 07/09/2024 No echocardiogram results found for the past 14 days 06/23/24 ECG 12-LEAD 06/24/2024 7:33 AM (Final) Impression Sinus rhythm Multiple ventricular premature complexes Probable left atrial enlargement Right bundle branch block Electronically Signed On 06-24-2024 07:33:38 EST by Carmen Peters Signed by: Carmen Peters MD on 06/24/2024 7:33 AM Equipment Requests: Additional Equipment Requests Vascular Equipment: arterial line kit and single transducer PROGRESS NOTE Observed: 09/12/2024 12:30 PM Status: COMPLETED Source: [employer] [facility] Carla Sanchez : 1950 Primary Care Physician: MARY SMITH The patient and/or family/surrogate voluntarily agreed to participate in ACP services. Patient?s cognitive capacity: intact Code Status: [x] [FULL CODE - Continue all advanced life support: CPR,intubation,invasive procedures] [_] [DNR-CCA - DO NOT do CPR, intubation] [_] [DNR-PULLER OVER - Comfort care only] [_] DNR form [was/was not] signed Summary of discussion: The patient health care POA/ surrogate is the following: Leta N - daughter. [Condition that instigated the ACP on this DOS, relevant PMH, functional status, goals of care, and whom this was discussed with including names and relationship to the patient, and any relevant advance care documentation discussion] I answered all the patient/family questions that I could within the range and scope of the current medical situation. We discussed the medical conditions, risks, benefits, outcomes, and goals of care at this time for the patient's medical issues at hand in the face of the patient's chronic issues and current presentation. Total time spent: 2 minutes were spent discussing the patient's resuscitation status, advance care planning, and end of life care, with patient and/or family/surrogate. Althea Shankar APRN - [facility] Acute care [facility] 09/12/2024, 12:51 PM HISTORY AND PHYSICAL NOTE Observed: 09/02 12:30 PM Status: COMPLETED Source: [facility] Comprehensive Pre Surgical H istory and Physical ? Name: Carla Sanchez : 1950 (Age-74 y.o.) Date of Service: Pt seen/examined on 09/12/2024 Procedure Information Date/Time: 09/19/24829 Procedure: LEFT CRANIOPLASTY (Left) - 2 HOUR CASE Location: [address] Operating Room Surgeons: Jim Barcenas MD Chief Complaint: Other mechanical complication of other internal orthopedic devices, implants and grafts, initial encounter (HCC) [T84.498A] Nontraumatic subdural hemorrhage, unspecified (HCC) [I62.00] ASSESSMENT/PLAN: Surgery is considered a(n) intermediate level 3 risk procedure/surgery () with no reducible risk factors. Based on the above evaluation, the benefits of the planned procedure likely exceed the risks. The patient is medically optimized to proceed with the planned procedure without any further cardiopulmonary testing. 1) Other mechanical complication of other internal orthopedic devices, implants and grafts, initial encounter (HCC) [T84.498A] Nontraumatic subdural hemorrhage, unspecified (HCC) [I62.00] - Managed per surgery - REVIEWED 06/23/2024 EKG - REVIEWED 07/30/2024 OUTSIDE CBC, BMP - Labs drawn within 90 days that are WNL do not require repeating per PAT protocol - Orders per PAT Protocol: T&S - METS: >4 2) GERD - MEDS: pantoprazole - stable -avoidance of triggers encouraged - Managed by Dr. Smith (PCP) - last OV 09/2024 3) Anemia - MEDS: none - 07/30/2024 Hgb 10.5(L) and Hct 32.4(L) - has required a blood transfusion - Yes - more than 5 years ago - Managed by Dr. Smith (PCP) - last OV 09/2024 - last CBC on 07/30/2024 4) Hx of Seizures - while in hospital for craniotomy - more than 10 years ago - MEDS: none - Not currently managed 5) Former Smoker - Total pack years: more than 20 years - Quit in 2019 - Patient counseled to avoid smoking/nicotine or THC products 24 hours prior to scheduled procedure - Ordered EKG and CBC if more than 20 year total pack hx Visit Type: Pre-Admission Testing Visit Labs Ordered: YES - PER PAT PROTOCOL Sleep Referral Ordered: NO - NEGATIVE SCREEN PER SLEEP REFERRAL PROTOCOL Total time spent (which include face to face and non face to face encounters) : 30 minutes Toxic drug monitoring/narrow therapeutic index drug monitoring : # Drug name : N/A # Route administered : N/A # Method of monitoring : N/A PAT Protocol referenced includes: 1. Anesthesia Lab Protocol Orders 2. Perioperative Cardiovascular Risk Assessment 3. Anesthesia Assessment 4. Pain Assessment and Acute Pain Service Consult (if appropriate) 5. Medical Clearance/Consult from Internal Medicine (IMS) 6. Shower/Wash Order (for designated surgeries) 7. IZZY Screen and Sleep Clinic Referral (if appropriate) CHRONIC NARCOTIC USAGE: No Allergies: Ibuprofen, Penicillins, and Prednisone If patient has opioid allergy, is it okay to take Acetaminophen: Yes History Of Present Illness: 74 y.o. female who we are asked to see/evaluate by Jim Barcenas MD for pre-operative evaluation prior to LEFT CRANIOPLASTY (Left) - 2 HOUR CASE From last office visit with Jim Barcenas MD on 08/11/2024: Patient is post-op left craniotomy due to exposed hardware performed on 06/27/24. She returns today to discuss cranioplasty. She has completed her course of IV antibiotics, her PICC line has been removed. She states she was cleared by infectious disease as of this last Sunday to move forward with cranioplasty. ASSESSMENT / PLAN : She is status post removal of infected bone flap. She is getting close to being able to have a cranioplasty performed. There are couple areas of scabbing on the incision that I would like to improve prior to surgery. Will plan for a cranioplasty in early September. She has had several CT scans since removal of the bone which have been persistently showing a small subdural chronic fluid collection. We will obtain a follow-up CT scan of the head a couple days prior to cranioplasty to determine whether we would need to drain the fluid collection at the time of surgery or whether just putting the bone on is all that would be required. The CT scan to 3D print her synthetic bone flap is already performed formed, it will need to be printed by [employer] in preparation for surgery now. She and her family understand the major risk of cranioplasty surgery is wound infection. Patient denies exertional chest pain/shortness of breath. Denies dizziness, syncope, lightheadedness. Denies fever, chills, weakness or fatigue. Patient denies any recent illness, infections, or wounds. Patient denies abdominal pain, nausea, vomiting, diarrhea, or constipation. Patient denies hx of CAD, CHF, MA, TIA/CVA, diabetes, COPD, asthma, IZZY, DVT/PE. Past Medical History: Past Medical History: No date: Anemia No date: Arthritis No date: Brain bleed (HCC) Comment: 2021 No date: Diverticulitis No date: Gastric ulcer No date: Leg fracture, right No date: Right arm fracture No date: Seizures ([facility]) Comment: 2013 with first craniotomy- while in hospital- none since No date: Thoracic spine fracture ([facility]) Past Surgical History: Past Surgical History: 07/2021: ABDOMINAL SURGERY Comment: on stomach No date: CHOLECYSTECTOMY No date: COLONOSCOPY 2014: CRANIOTOMY; Left No date: DILATION AND CURETTAGE OF UTERUS No date: HAND SURGERY; Right Comment: fracture repiair No date: SMALL INTESTINE SURGERY Comment: small part removed No date: UPPER GASTROINTESTINAL ENDOSCOPY Medications Prior to Admission: Current Outpatient Medications on File Prior to Visit Medication Sig Dispense Refill Ascorbic Acid (vitamin C) 500 MG tablet TAKE 1 TABLET BY MOUTH ONCE DAILY AT 10AM B Complex Vitamins (VITAMIN B COMPLEX PO) Take by mouth. baclofen (Lioresal) 10 MG tablet Take 10 mg by mouth 2 times daily as needed. Cholecalciferol 25 MCG (1000 UT) tablet dispersible Take by mouth. Loratadine (CLARITIN PO) Take by mouth. mupirocin (Bactroban) 2 % ointment Apply topically three times daily. nystatin (Mycostatin) [id number] UNIT/GM powder Apply topically 2 times daily. pantoprazole (ProtoNix) 40 MG EC tablet Take 40 mg by mouth daily. POTASSIUM GLUCONATE PO Take by mouth. sennosides (Senokot) 8.6 MG tablet Take 2 tablets (17.2 mg) by mouth Nightly as needed for constipation (If no BM in last 24hrs). TURMERIC PO Take by mouth. VITAMIN D PO Take by mouth. No current facility-administered medications on file prior to visit. Social History: TOBACCO: reports that she quit smoking about 4 years ago. Her smoking use included cigarettes. She has never used smokeless tobacco. ETOH: reports current alcohol use of about 1.0 standard drink of alcohol per week. Social History Substance and Sexual Activity Drug Use Not Currently Family History: Family History Problem Relation Name Age of Onset Breast cancer Mother Heart disease Father REVIEW OF SYSTEMS: Review of Systems Constitutional: Negative for chills, fatigue and fever. HENT: Negative for dental problem and trouble swallowing. Respiratory: Negative for shortness of breath. Cardiovascular: Negative for chest pain and palpitations. Gastrointestinal: Negative for abdominal pain, nausea and vomiting. Genitourinary: Negative for difficulty urinating and hematuria. Musculoskeletal: Negative. Skin: Negative. Neurological: Negative for dizziness and headaches. Hematological: Negative. Psychiatric/Behavioral: Negative for confusion. The patient is not nervous/anxious. Physical Exam: Physical Exam Constitutional: Appearance: Normal appearance. She is normal weight. HENT: Head: Normocephalic. Mouth/Throat: Mouth: Mucous membranes are moist. Pharynx: Oropharynx is clear. Eyes: Extraocular Movements: Extraocular movements intact. Cardiovascular: Rate and Rhythm: Normal rate and regular rhythm. Pulses: Normal pulses. Pulmonary: Effort: Pulmonary effort is normal. Abdominal: General: Bowel sounds are normal. Musculoskeletal: General: Normal range of motion. Cervical back: Normal range of motion. Skin: General: Skin is warm and dry. Neurological: General: No focal deficit present. Mental Status: She is alert. Psychiatric: Mood and Affect: Mood normal. Patient denies any open wounds or rash to skin. Vitals: Vitals Value Taken Time BP 111/80 09/12/24 1220 Temp 36.4 ?C (97.6 ?F) 09/12/24 1220 Pulse 78 09/12/24 1220 Resp 16 09/12/24 1220 SpO2 96 % 09/12/24 1220 Labs: REVIEWED 07/30/2024 OUTSIDE CBC, BMP PAT Pain Score: Postop Pain Management Plan (Pain consult ordered?): Pain consult not indicated at this time ? EKG: REVIEWED 06/23/2024 Encounter Date: 06/23/24 ECG 12 lead Result Value Heart Rate 89 QRSD Interval 121 QT Interval 400 QTC Interval 481 P [place] 3 QRS [place] 2 T Wave [place] -31 [place] Interval 141 Impression Sinus rhythm Multiple ventricular premature complexes Probable left atrial enlargement Right bundle branch block Electronically Signed On 06-24-2024 07:33:38 EST by Carmen Peters ECHO and EF:None on file METS: >4 Electronically signed by: Althea Shankar, GINNA - [employer] Date: 09/12/2024 at 12:52 PM [id number] Observed: 09/12/2024 12:30 PM Status: COMPLETED Source: [facility] Medication List Accurate as of September 12, 2024 12:42 PM. Always use your most recent med list. baclofen 10 MG tablet Commonly known as: Lioresal Medication Adjustments for Surgery: Take morning of surgery Cholecalciferol 25 MCG (1000 UT) tablet dispersible Medication Adjustments for Surgery: Hold morning of surgery CLARITIN PO Medication Adjustments for Surgery: Take morning of surgery mupirocin 2 % ointment Commonly known as: Bactroban Medication Adjustments for Surgery: Hold morning of surgery nystatin 407885 UNIT/GM powder Commonly known as: Mycostatin Medication Adjustments for Surgery: Hold morning of surgery pantoprazole 40 MG EC tablet Commonly known as: ProtoNix Medication Adjustments for Surgery: Take morning of surgery POTASSIUM GLUCONATE PO Medication Adjustments for Surgery: Hold morning of surgery sennosides 8.6 MG tablet Commonly known as: Senokot Take 2 tablets (17.2 mg) by mouth Nightly as needed for constipation (If no BM in last 24hrs). Medication Adjustments for Surgery: Hold morning of surgery TURMERIC PO Medication Adjustments for Surgery: Hold morning of surgery VITAMIN B COMPLEX PO Medication Adjustments for Surgery: Hold morning of surgery vitamin C 500 MG tablet Medication Adjustments for Surgery: Hold morning of surgery VITAMIN D PO Medication Adjustments for Surgery: Other (Comment) Notes to patient: DUPLICATE Additional Instructions: You may take your prescription pain medication. You may take Tylenol for pain. NO Motrin, ibuprofen or Advil for 7 DAYS prior to surgery or longer if instructed by your surgeon. NO Aleve or Naprosyn for 7 days prior to surgery or longer if instructed by your surgeon. IF YOU TAKE BLOOD THINNERS OR ASPIRIN: DO NOT take aspirin or aspirin containing products for 7 days before surgery, or longer if instructed by your surgeon. Follow any instructions given to you by Dr. BARCENAS Shower with an antibacterial soap such as Dial or Safeguard or shower kit provided to you before coming to the hospital. No makeup, lotion, powder, deodorant or body spays. No hair products. Remove all jewelry and leave it at home. Wear loose comfortable clothing to go home in. You may brush your teeth morning of surgery. Do not wear contacts day of surgery. No marijuana (THC), smoking or alcohol for 24 hours prior to surgery. Please arrange for a responsible adult to drive you home after your surgery and that there is a responsible adult with you for 24 hours post discharge. If you have specific questions, please call your surgeon. You will receive a call the day before your surgery to verify your arrival time and date. You will be asked to arrive at least two hours prior to your scheduled surgery time. Please bring your [facility] Surgical folder and medication list with you day of surgery. We encourage you to write down any questions you may have for the surgeon, anesthesiologist, or other members of the surgical team and bring it with you the day of surgery. Please bring photo ID and insurance information. If you will be spending the night following surgery, please plan to have your ride available by 11 am on the day of discharge. HOSPITALITY TEAM MEMBER ENTER BUILDING AT THE MAIN ENTRANCE. TAKE THE H ELEVATOR TO THE FIRST FLOOR, TURN LEFT OFF THE ELEVATOR AND GO TO THE SAME DAY SURGERY REGISTRATION DESK TO CHECK IN PARKING DECK You may park in the main garage for free day of surgery, and take the bridge on level one to enter the hospital. Sign into same day surgery on the right hand side. CT HEAD WO IV CONTRAST Observed: 025 11:09 AM Status: F Source: [facility] Patient Name: [facility] 1950 [id number] Exam Date/Time: 09/02/2024 15:55 Procedure: CT HEAD WO IV CONTRAST Ordering Provider: BARCENAS PAUL Reason For Exam: R chronic SDH CT HEAD WITHOUT CONTRAST CLINICAL HISTORY: R chronic SDH COMPARISON: 07/08/2024 TECHNIQUE: Helical CT of the brain without contrast. Dose reduction was employed with automated exposure control. FINDINGS: The patient is again status post previous decompressive left hemicraniectomy. The previously noted left convexity subdural hematoma posterior to the craniotomy site is smaller and decreased in attenuation, now measuring up to 6 mm versus 8 mm on the prior exam. No new acute intracranial hemorrhage is identified. The ventricles are normal in caliber. There is mild rightward midline shift of the septum pellucidum. No recent infarct. Remote right frontal craniotomy defect with underlying chronic dural thickening. IMPRESSION: Small residual chronic left posterior cerebral convexity subdural hematoma measuring 6 mm in thickness. No new acute intracranial abnormalities. Report Dictated on Electronically Signed By: Johnathon Acosta MD Electronically Signed Date/Time: 09/04/2024 11:09 AM EDT F/U SDH NO COMPLAINTS 36 Observed: 08/15/2024 8:29 AM Status: COMPLETED Source: [facility] Surgery is approved NAN Surg 09/19 830 PAT 09/12 1230 PO 10/06 9 Case# [id number] Patient aware of all appointments and times 36 Observed: 08/13/2024 3:17 PM Status: COMPLETED Source: [facility] Procedure: Left cranioplasty Anesthesia: GET Time: 2 Positioning/Frame: [employer]/Implants: [place] for synthetic bone flap Diamond: Y Pre-Op Imaging:[facility] Inpatient/Outpatient: In Other:[id number] head a couple of days before surgery Tentative Sx date: 09/19/2024 36 Observed: 08/13/2024 8:16 AM Status: COMPLETED Source: [facility] Done Sorry I forgot 36 Observed: 08/13/2024 8:12 AM Status: COMPLETED Source: [facility] Procedure: Left cranioplasty Anesthesia: GET Time: 2 Positioning/Frame: [employer]/Implants: [employer] for synthetic bone flap O-Arm: N C-Arm: N Stealth Navigation: N Diamond: Y Microscope: N Brace: N Pre-Op Imaging:[facility] Intranerve: N Inpatient/Outpatient: In Medications to DC: Other:[id number] head a couple of days before surgery 36 Observed: 08/12/2024 2:38 PM Status: COMPLETED Source: [facility] Please send surgery info. 36 Observed: 08/12/2024 2:38 PM Status: COMPLETED Source: [facility] ----- Message from Jim garcia MD sent at 08/11/2024 10:25 AM EDT ----- Please schedule the surgery for early September Please schedule an updated CT head for a couple of days before surgery The CT to 3D print the bone flap is already done, [employer] needs to print it and get it delivered for surgery PROGRESS NOTE Observed: 08/11/2024 10:00 AM Status: COMPLETED Source: [facility] NEUROSURGERY and SPINE POST- OP NOTE Patient Name: Carla Sanchez Patient : 1950 PCP: MARY SMITH History of Present Ilness: Patient is post-op left craniotomy due to exposed hardware performed on 06/27/24. She returns today to discuss cranioplasty. She has completed her course of IV antibiotics, her PICC line has been removed. She states she was cleared by infectious disease as of this last Sunday to move forward with cranioplasty. Past Medical History: Past Medical History: Diagnosis Date Anemia Arthritis Brain bleed ([facility]) 2013, 2021 Diverticulitis Gastric ulcer Leg fracture, right Right arm fracture Seizures ([facility]) 2013 with first craniotomy- while in hospital- none since Thoracic spine fracture ([facility]) Past Surgical History: Past Surgical History: Procedure Laterality Date ABDOMINAL SURGERY 07/2021 on stomach CHOLECYSTECTOMY COLONOSCOPY CRANIOTOMY Left 2013 DILATION AND CURETTAGE OF UTERUS HAND SURGERY Right fracture repiair SMALL INTESTINE SURGERY small part removed UPPER GASTROINTESTINAL ENDOSCOPY Home Medications: Prior to Admission medications Medication Sig Start Date End Date Taking? Authorizing Provider acetaminophen (Tylenol) 500 MG tablet Take 2 tablets (1,000 mg) by mouth every 6 hours as needed for headaches. 07/09/24 08/08/24 Yes Noel Sharp MD Ascorbic Acid (vitamin C) 500 MG tablet TAKE 1 TABLET BY MOUTH ONCE DAILY AT 10AM 08/30/23 Yes Historical Provider, B Complex Vitamins (VITAMIN B COMPLEX PO) Take by mouth. Yes Historical Provider, Cholecalciferol 25 MCG (1000 UT) tablet dispersible Take by mouth. Yes Historical Provider, Loratadine (CLARITIN PO) Take by mouth. Yes Historical Provider, mupirocin (Bactroban) 2 % ointment Apply topically three times daily. Yes Historical Provider, nystatin (Mycostatin) [id number] UNIT/GM powder Apply topically 2 times daily. Yes Historical Provider, ondansetron ODT (Zofran-ODT) 4 MG disintegrating tablet Take 1 tablet (4 mg) by mouth every 8 hours as needed for nausea or vomiting for up to 7 days. 07/09/24 07/16/24 Yes Noel Sharp MD oxyCODONE (Roxicodone) 5 MG immediate release tablet Take 0.5 tablets (2.5 mg) by mouth every 6 hours as needed for severe pain (7-10) (for severe headaches refractory to tylenol) for up to 5 days. 07/09/24 07/16/24 Yes Noel Sharp MD pantoprazole (ProtoNix) 40 MG EC tablet Take 40 mg by mouth daily. Yes Historical Provider, POTASSIUM GLUCONATE PO Take by mouth. Yes Historical Provider, sennosides (Senokot) 8.6 MG tablet Take 2 tablets (17.2 mg) by mouth Nightly as needed for constipation (If no BM in last 24hrs). 07/09/24 07/09/25 Yes Noel Sharp MD vancomycin IVPB 1 g in 200 mL (premix) Infuse 1 g into a venous catheter every 12 hours. 07/02/24 08/08/24 Yes Historical ProviderMD VITAMIN D PO Take by mouth. Yes Historical Provider, baclofen (Lioresal) 10 MG tablet Take 10 mg by mouth 2 times daily as needed. Patient not taking: Reported on 07/16/2024 02/12/24 Historical ProviderMD TURMERIC PO Take by mouth. Patient not taking: Reported on 07/16/2024 Historical ProviderMD Allergies: Ibuprofen, Penicillins, and Prednisone Physical Examination: Vitals: 08/11/24 0958 BP: 115/75 Pulse: 68 Physical Exam Constitutional: Appearance: Normal appearance. HENT: Head: Normocephalic. Eyes: General: Lids are normal. Extraocular Movements: Extraocular movements intact. Pupils: Pupils are equal, round, and reactive to light. Cardiovascular: Rate and Rhythm: Normal rate. Pulmonary: Effort: Pulmonary effort is normal. Abdominal: Palpations: Abdomen is soft. Musculoskeletal: General: Normal range of motion. Cervical back: Normal range of motion and neck supple. Skin: General: Skin is warm and dry. Neurological: General: No focal deficit present. Mental Status: She is alert. Motor: Motor strength is normal. Coordination: Coordination is intact. Deep Tendon Reflexes: Reflex Scores: Brachioradialis reflexes are 1+ on the right side and 1+ on the left side. Patellar reflexes are 1+ on the right side and 1+ on the left side. Psychiatric: Mood and Affect: Mood normal. Judgment: Judgment normal. Neurological Exam Mental Status Alert. Cranial Nerves CN II: Visual acuity is normal. Visual cummings full to confrontation. CN III, IV, : Extraocular movements intact bilaterally. Normal lids and orbits bilaterally. Pupils equal round and reactive to light bilaterally. CN V: Facial sensation is normal. CN VII: Full and symmetric facial movement. CN VIII: Hearing is normal. CN IX, X: Palate elevates symmetrically. Normal gag reflex. CN XI: Shoulder shrug strength is normal. CN XII: Tongue midline without atrophy or fasciculations. Motor Normal muscle bulk throughout. Normal muscle tone. Strength is 5/5 throughout all four extremities. Sensory Sensation is intact to light touch, pinprick, vibration and proprioception in all four extremities. Reflexes Right Left Brachioradialis 1+ 1+ Patellar 1+ 1+ Coordination [id number], rapid alternating movements and [id number] normal bilaterally without dysmetria. Gait Normal casual, toe, heel and tandem gait. ASSESSMENT / PLAN : She is status post removal of infected bone flap. She is getting close to being able to have a cranioplasty performed. There are couple areas of scabbing on the incision that I would like to improve prior to surgery. Will plan for a cranioplasty in early September. She has had several CT scans since removal of the bone which have been persistently showing a small subdural chronic fluid collection. We will obtain a follow-up CT scan of the head a couple days prior to cranioplasty to determine whether we would need to drain the fluid collection at the time of surgery or whether just putting the bone on is all that would be required. The CT scan to 3D print her synthetic bone flap is already performed formed, it will need to be printed by [employer] in preparation for surgery now. She and her family understand the major risk of cranioplasty surgery is wound infection. Diagnosis Plan 1. Exposed orthopaedic hardware (CMS/HCC) (HCC) 2. Subdural hematoma, nontraumatic (CMS/HCC) (HCC) CT head wo IV contrast CE VISIT Observed: 08/11/2024 10:00 AM Status: COMPLETED Source: [facility] [id number] Carla Sanchez Augusto [birth year] F Date Provider Department Center 08/11/2024 [id number] BARCENAS [facility] None Family History Problem Relation Age of Onset Breast cancer Mother Heart disease Father Family Status - Relation Status Age at Mother Father Level of Service:23930 [place] POSTOP FOLLOW UP VISIT RELATED TO ORIGINAL PX Reason for Visit and Comments: Follow-up [[id number]] - Patient present to discuss cranioplasty. Patient reports she has been cleared by ID on Sunday. PROGRESS NOTE Observed: 08/05/2024 1:00 PM Status: COMPLETED Source: [facility] nfectious Diseases Attending Outpatient Progress Note HISTORY OF PRESENT ILLNESS 74 y/o F with hx of cholangitis. E coli/ C perfringens BSI managed through [facility] in 10/2023 (cipro/flagyl) with PTHC and ultimately internal biliary stent, hx ESBL Klebsiella BSI/ cholangitis (ertapenem 08/2023), hx Ortega-en-Y gastric bypass (2021), hx SDH remotely (2013 or 2014) with previous craniotomy--> developed an acute SDH in 09/2021 requiring joanie hole drainage by Dr. Barcenas along with MMA embolization. She presented to Neurosurgery outpatient in 04/2024 with an area of the L forehead with exposed metal with bleeding. A CT was ordered given it was not in the region of the 2021 procedures. It showed craniotomy flaps on the right and left; + hardware for the L craniotomy flap appears very close to the level of skin. She underwent L craniectomy of all hardware and bone flap on 06/[address] Barcenas. The underside of the scalp had purulent material that was cultured. Epidural space, bur hole, and bone flap were all sent for cx--> grew MRSA. She was placed on vancomycin x 6 weeks to end on 08/08/24. [facility] She was read[facility] after suffering a post-op L SDH hematoma that was medically managed. She has had some cognitive changes and speech issues related to this issue. She was seen by Dr. Barcenas on 07/16/24 in follow up. Her incision was healing well per his notes at that time. She has since picked a scab off of one area of the incision and it has raw red tissue. No purulence. Minimal headaches that are overall improving. Review of Systems Constitutional: Positive for activity change and fatigue. Negative for fever. HENT: Negative for congestion and mouth sores. Eyes: Negative for redness and visual disturbance. Respiratory: Negative for cough and shortness of breath. Cardiovascular: Negative for chest pain and leg swelling. Gastrointestinal: Negative for abdominal pain and diarrhea. Genitourinary: Negative for flank pain and frequency. Musculoskeletal: Positive for gait problem. Negative for arthralgias. Skin: Positive for wound. Negative for color change and rash. Neurological: Positive for weakness and headaches. Hematological: Negative. Psychiatric/Behavioral: Negative. Social History Socioeconomic History Marital status: Spouse name: Not on file Number of children: Not on file Years of education: Not on file Highest education level: Not on file Occupational History Not on file Tobacco Use Smoking status: Former Current packs/day: 0.00 Types: Cigarettes Quit date: 10/27/2019 Years since quittin.7 Smokeless tobacco: Never Vaping Use Vaping status: Never Used Substance and Sexual Activity Alcohol use: Yes Alcohol/week: 1.0 standard drink of alcohol Types: 1 Standard drinks or equivalent per week Comment: rare-holidays or special occ Drug use: Not Currently Sexual activity: Not on file Other Topics Concern Not on file Social History Narrative Not on file Social Drivers of Health Financial Resource Strain: Low Risk (08/12/2023) Received from [facility] Overall Financial Resource Strain (CARDIA) Difficulty of Paying Living Expenses: Not hard at all Food Insecurity: No Food Insecurity (07/09/2024) Hunger Vital Sign Worried About Running Out of Food in the Last Year: Never true Ran Out of Food in the Last Year: Never true Transportation Needs: No Transportation Needs (07/09/2024) PRAPARE - Transportation Lack of Transportation (Medical): No Lack of Transportation (Non-Medical): No Physical Activity: Not on file Stress: Not on file Social Connections: Not on file Intimate Partner Violence: Not At Risk (07/09/2024) Humiliation, Afraid, Rape, and Kick questionnaire Fear of Current or Ex-Partner: No Emotionally Abused: No Physically Abused: No Sexually Abused: No Housing Stability: High Risk (07/09/2024) Housing Stability Vital Sign Unable to Pay for Housing in the Last Year: No Number of Times Moved in the Last Year: 2 Homeless in the Last Year: No Past Medical History: Diagnosis Date Anemia Arthritis Brain bleed ([facility]) 2013, 2021 Diverticulitis Gastric ulcer Leg fracture, right Right arm fracture Seizures ([facility]) 2013 with first craniotomy- while in hospital- none since Thoracic spine fracture ([facility]) Family History Problem Relation Name Age of Onset Breast cancer Mother Heart disease Father Allergies Allergen Reactions Ibuprofen Other Reaction(s): Other, Other (See Comments), Unknown Unable to take 2nd to risk of GI and brain bleed per pt Penicillins Rash Other Reaction(s): Unknown; tolerates cefazolin from 09/2021 brain surgery Prednisone Rash Other Reaction(s): Unknown There were no vitals filed for this visit. Wt Readings from Last 3 Encounters: 07/09/24 169 lb 6.4 oz (76.8 kg) 07/03/24 171 lb (77.6 kg) 06/23/24 175 lb 6.4 oz (79.6 kg) Physical Exam Vitals and nursing note reviewed. Constitutional: General: She is not in acute distress. HENT: Head: Comments: Scalp incision is healed with the exception of one area that she picked a scab off of-- minimal bleeding- photo taken Right Ear: External ear normal. Left Ear: External ear normal. Nose: Nose normal. Mouth/Throat: Mouth: Mucous membranes are moist. Eyes: General: No scleral icterus. Conjunctiva/sclera: Conjunctivae normal. Cardiovascular: Rate and Rhythm: Normal rate and regular rhythm. Pulmonary: Effort: Pulmonary effort is normal. No respiratory distress. Breath sounds: No wheezing. Abdominal: General: There is no distension. Palpations: Abdomen is soft. Tenderness: There is no abdominal tenderness. Musculoskeletal: Cervical back: Neck supple. No rigidity. Comments: + arthritic joint changes; no synovitis or crepitance of any limb Skin: General: Skin is warm and dry. Coloration: Skin is not jaundiced. Findings: No rash. Neurological: Mental Status: She is alert. Comments: Mild cognitive deficits; walking with an assistance device Psychiatric: Mood and Affect: Mood normal. 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 Will have PICC line removed after her last dose of antibiotics. A non-adherent dressing was applied to her wound. D/w Dr. Barcenas who has an upcoming appointment with her. Hopefully, she will avoid picking at the wound to avoid another infection. She still needs an upcoming cranioplasty. D/w her sister who accompanied her to the appointment. They are hesitant to accept 2 weeks of IV vancomycin after cranioplasty because it requires her to be placed at a SNF. Could consider two weeks of doxycycline PO post-op instead. Most importantly, she needs to avoid touching and picking at her incision. Follow up as needed. All questions were answered to the patient's satisfaction. Total time 35 minutes on this day of visit includes record and documentation review before and after visit including documentation and time not explicitly included on EMR time stamp for accounting for open encounter. Sayra Honeycutt MD OFFICE VISIT Observed: 08/05/2024 1:00 PM Status: COMPLETED Source: [facility] [employer] [facility] [id number] Carla Sanchez [birth year] F Date Provider Department Center 08/05/2024 [id number] SAYRA Franc[facility] ID None Family History Problem Relation Age of Onset Breast cancer Mother Heart disease Father Family Status - Relation Status Age at Mother Father Level of Service:62543 [place] OFFICE/OUTPATIENT ESTABLISHED MOD MDM 30 MIN Reason for Visit and Comments: Follow-up [[id number]] - MRSA cranioplasty site infection s/p craniectomy 36 Observed: 08/04/2024 3:03 PM Status: COMPLETED [facility] Patient given appointment re minder. Patient states she is still on antibiotics, and is not sure if treatment will end tomorrow or next week. Patient educated that appointment must be after completion of treatment, and appointment will need rescheduled if treatment is not completed prior to next appointment. Patient verbalized understanding and will notify us follow appointment tomorrow. 36 Observed: 07/28/2024 2:53 PM Status: COMPLETED [facility] Continue current dosing of v ancomycin. 36 Observed: 07/28/2024 1:29 PM Status: COMPLETED [facility]: [facility] Labs received & scanned into pt's chart for your review. 07/23/24 Random Vanc was 16.3H however they did a Vanco Tr on 07/27/24 that was 14.8. Please advise if any changes are needed. 36 Observed: 07/28/2024 11:48 AM Status: COMPLETED [facility]: [facility] Called [facility] and spoke to nurse Salazar who stated she will fax us the results of the labs. [phone] Observed: 07/21/2024 2:42 PM Status: COMPLETED Source: [facility] Patient Choice Patient Name: CARLA SANCHEZ Date of : 1950 37 Observed: 07/16/2024 10:45 AM Status: COMPLETED Source: [facility] She is status post left cran iectomy for exposed hardware. PROGRESS NOTE Observed: 07/16/2024 10:45 AM Status: COMPLETED Source: [facility] NEUROSURGERY and SPINE POST- OP NOTE Patient Name: Carla Sanchez Patient : 1950 PCP: MARY SMITH History of Present Ilness: Patient is post-op left craniotomy due to exposed hardware performed on 06/27/24. Patient states some days are better then others but overall she is feeling better then prior to surgery. Past Medical History: Past Medical History: Diagnosis Date Anemia Arthritis Brain bleed ([facility]) 2013, 2021 Diverticulitis Gastric ulcer Leg fracture, right Right arm fracture Seizures ([facility]) 2013 with first craniotomy- while in hospital- none since Thoracic spine fracture ([facility]) Past Surgical History: Past Surgical History: Procedure Laterality Date ABDOMINAL SURGERY 07/2021 on stomach CHOLECYSTECTOMY COLONOSCOPY CRANIOTOMY Left 2013 DILATION AND CURETTAGE OF UTERUS HAND SURGERY Right fracture repiair SMALL INTESTINE SURGERY small part removed UPPER GASTROINTESTINAL ENDOSCOPY Home Medications: Prior to Admission medications Medication Sig Start Date End Date Taking? Authorizing Provider acetaminophen (Tylenol) 500 MG tablet Take 2 tablets (1,000 mg) by mouth every 6 hours as needed for headaches. 07/09/24 08/08/24 Yes Noel Sharp MD Ascorbic Acid (vitamin C) 500 MG tablet TAKE 1 TABLET BY MOUTH ONCE DAILY AT 10AM 08/30/23 Yes Historical Provider, B Complex Vitamins (VITAMIN B COMPLEX PO) Take by mouth. Yes Historical Provider, Cholecalciferol 25 MCG (1000 UT) tablet dispersible Take by mouth. Yes Historical Provider, Loratadine (CLARITIN PO) Take by mouth. Yes Historical Provider, mupirocin (Bactroban) 2 % ointment Apply topically three times daily. Yes Historical Provider, nystatin (Mycostatin) 727515 UNIT/GM powder Apply topically 2 times daily. Yes Historical Provider, ondansetron ODT (Zofran-ODT) 4 MG disintegrating tablet Take 1 tablet (4 mg) by mouth every 8 hours as needed for nausea or vomiting for up to 7 days. 07/09/24 07/16/24 Yes Noel Sharp MD oxyCODONE (Roxicodone) 5 MG immediate release tablet Take 0.5 tablets (2.5 mg) by mouth every 6 hours as needed for severe pain (7-10) (for severe headaches refractory to tylenol) for up to 5 days. 07/09/24 07/16/24 Yes Noel Sharp MD pantoprazole (ProtoNix) 40 MG EC tablet Take 40 mg by mouth daily. Yes Historical Provider, POTASSIUM GLUCONATE PO Take by mouth. Yes Historical Provider, sennosides (Senokot) 8.6 MG tablet Take 2 tablets (17.2 mg) by mouth Nightly as needed for constipation (If no BM in last 24hrs). 07/09/24 07/09/25 Yes Noel Sharp MD vancomycin IVPB 1 g in 200 mL (premix) Infuse 1 g into a venous catheter every 12 hours. 07/02/24 08/08/24 Yes Historical Provider, VITAMIN D PO Take by mouth. Yes Historical Provider, baclofen (Lioresal) 10 MG tablet Take 10 mg by mouth 2 times daily as needed. Patient not taking: Reported on 07/16/2024 02/12/24 Historical Provider, TURMERIC PO Take by mouth. Patient not taking: Reported on 07/16/2024 Historical Provider, Allergies: Ibuprofen, Penicillins, and Prednisone Physical Examination: Vitals: 07/16/24 1022 BP: 117/70 Pulse: 85 Physical Exam Constitutional: Appearance: Normal appearance. HENT: Head: Normocephalic. Eyes: General: Lids are normal. Extraocular Movements: Extraocular movements intact. Pupils: Pupils are equal, round, and reactive to light. Cardiovascular: Rate and Rhythm: Normal rate. Pulmonary: Effort: Pulmonary effort is normal. Abdominal: Palpations: Abdomen is soft. Musculoskeletal: General: Normal range of motion. Cervical back: Normal range of motion and neck supple. Skin: General: Skin is warm and dry. Neurological: General: No focal deficit present. Mental Status: She is alert. Motor: Motor strength is normal. Coordination: Coordination is intact. Deep Tendon Reflexes: Reflex Scores: Brachioradialis reflexes are 1+ on the right side and 1+ on the left side. Patellar reflexes are 1+ on the right side and 1+ on the left side. Psychiatric: Mood and Affect: Mood normal. Judgment: Judgment normal. Neurological Exam Mental Status Alert. Cranial Nerves CN II: Visual acuity is normal. Visual cummings full to confrontation. CN III, IV, : Extraocular movements intact bilaterally. Normal lids and orbits bilaterally. Pupils equal round and reactive to light bilaterally. CN V: Facial sensation is normal. CN VII: Full and symmetric facial movement. CN VIII: Hearing is normal. CN IX, X: Palate elevates symmetrically. Normal gag reflex. CN XI: Shoulder shrug strength is normal. CN XII: Tongue midline without atrophy or fasciculations. Motor Normal muscle bulk throughout. Normal muscle tone. Strength is 5/5 throughout all four extremities. Sensory Sensation is intact to light touch, pinprick, vibration and proprioception in all four extremities. Reflexes Right Left Brachioradialis 1+ 1+ Patellar 1+ 1+ Coordination [id number]-[id number], rapid alternating movements and [id number]-fb-[id number] normal bilaterally without dysmetria. Gait Normal casual, toe, heel and tandem gait. Incision healing appropriately with no signs of erythema or drainage. ASSESSMENT / PLAN : She is currently on her IV antibiotic treatment. Will see her back after she has completed her IV antibiotics from [place]. At that point we can plan for a left cranioplasty. Diagnosis Plan 1. Exposed orthopaedic hardware (CMS/HCC) (HCC) CE VISIT Observed: 07/16/2024 10:45 AM Status: COMPLETED Source: [employer] [facility] [id number] Carla Sanchez [birth year] F Date Provider Department Center 07/16/2024 [id number] BARCENAS [facility] None Family History Problem Relation Age of Onset Breast cancer Mother Heart disease Father Family Status - Relation Status Age at Mother Father Level of Service:64977 [place] POSTOP FOLLOW UP VISIT RELATED TO ORIGINAL PX Reason for Visit and Comments: Post-op [483] - Patient present for left crani post op. She reports some pretty bad headaches, but pretty good. Currently resides at transitional care. Patient did have some imaging done due to an episode of slurring speech, vomiting, and headache. 36 Observed: 07/10/2024 3:22 PM Status: COMPLETED Source: [employer] [facility] CT order faxed to [facility] in order for it to be completed there. Susana verbalized understanding that we must have a disc to review imaging at follow up appointment. [id number] Observed: 07/09/2024 5:53 PM Status: COMPLETED Source: [facility] Next Site of Care Admission Date: 07/06/2024 06:25 PM Patient Name: CARLA SANCHEZ Location: [facility] [id number] Date of : 1950 Placement Information Referral Type:Alf/SNF - Return Referral ID:[id number] Provider Name:[facility] Address 1:[address] Address 2: City:[place] Selection Factors:Patient/Family Choice State:[place] NURSING NOTE Observed: 07/09/2024 5:40 PM Status: COMPLETED Source: [facility] [employer] [facility] Report given to Lesvia álvarez [facility] NURSING NOTE Observed: 07/09/2024 5:16 PM Status: COMPLETED Source: [facility] [employer] [facility] I attempted to call report t o [place] [facility], there was no answer. HIPAA compliant message left asking for a return call. All belongings packed. Patient notified her daughter of transfer. Await transport 30 Observed: 07/09/2024 4:49 PM Status: COMPLETED Source: [facility] Problem: Knowledge Deficit Goal: Patient/family/caregiver demonstrates understanding of disease process, treatment plan, medications, and discharge instructions Outcome: Adequate for DischargeProblem: Potential for Compromised Skin Integrity Goal: Skin Integrity is Maintained or Improved Outcome: Adequate for DischargeGoal: Nutritional status is improving Outcome: Adequate for DischargeProblem: Urinary Incontinence Goal: Perineal skin integrity is maintained or improved Outcome: Adequate for Discharge [id number] Observed: 07/09/2024 4:05 PM Status: COMPLETED Source: [facility] [employer] [facility] Discharge med list transmitt ed to [facility] via [facility]port per TCC request. RESS NOTE Observed: 07/09/2024 3:32 PM Status: COMPLETED Source: [facility] [employer] [facility] - Infectious Diseases Attending Progress Note Subjective: Following for MRSA cranioplasty site infection s/p craniectomy. Had new post-op L SDH. Tolerating abx. Afebrile. Plans for transfer back to her SNF. Vitals: Patient Vitals for the past 24 hrs: BP Temp Temp src Pulse Resp SpO2 Weight 07/09/24 1440 106/74 36.6 ?C (97.8 ?F) Temporal 63 18 96 % -- 07/09/24 1013 113/55 36.6 ?C (97.9 ?F) Temporal 71 18 98 % -- 07/09/24 0600 -- -- -- -- -- -- 76.8 kg (169 lb 6.4 oz) 07/09/24 0545 122/62 36.7 ?C (98.1 ?F) Temporal 77 16 98 % -- 07/09/24 0147 107/57 36.6 ?C (97.9 ?F) Temporal 78 18 95 % -- 07/08/24 2108 99/62 36.9 ?C (98.5 ?F) Temporal 97 18 97 % -- 07/08/24 1627 114/61 37 ?C (98.6 ?F) Temporal 95 22 97 % -- Physical Exam: Physical Exam Vitals and nursing note reviewed. Constitutional: Comments: comfortable Labs: Recent Labs 07/07/240 07/08/24 0614 07/09/24 0206 NA 140 140 139 K 4.1 4.0 3.8 CL 109* 107 107 CO2 26 26 27 BUN 12 9 10 CREATININE 0.60 0.57 0.59 GLUCOSE 110 111 102 CALCIUM 8.2* 8.4* 8.1* Recent Labs 07/07/2441907/08/24 0614 07/09/24 0206 WBC 6.9 5.9 6.3 HGB 11.1* 10.9* 10.1* HCT 33.7* 33.9* 32.0* PLT 151 148 147 LYMPHOPCT 18.2 23.2 25.6 MONOPCT 9.1 8.6 9.1 BASOPCT 0.4 0.3 0.3 NEUTROABS 4.7 3.8 3.8 Micro: 06/29- blood cx- negative 06/27- brain biopsy cx- MRSA (no orgs on stain) 06/27- bone OR cx- MRSA (no orgs on stain) 06/27- other scalp OR cx- MRSA (no orgs on stain) 06/27- swab scalp cx- MRSA (no orgs on stain) 06/27- swab scalp cx- MRSA (no orgs on stain) Lines: PICC (07/03) Radiography/Echo/Other: 07/07- CT brain- There is low attenuation subdural extra-axial fluid in the left middle cranial fossa overlying the left temporal lobe as well as at the left frontal convexity overlying the left superior and middle frontal gyri. There is associated left to right midline shift approximately 7 mm. Findings similar to previous CT of the head obtained earlier today. 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 Stop date remains as 08/08/24. OPAT was completed again and scanned into media tab. PICC is in place. Will sign off. Based on diagnoses and management, combination of acute and chronic problems, exacerbations and/or acuity, this visit should be considered to be of low complexity. Sayra Honeycutt MD [id number] Observed: 07/09/2024 1:43 PM Status: COMPLETED Source: [employer] [facility] Transportation set via wheel chair for today 07-09-24 @6pm to [facility]. ANDRZEJ, RN, Lead Vulcanizing Operator, facility, Pt, and Pt's sister notified. SW left a voicemail with Pt's sister. [phone] Observed: 07/09/2024 1:05 PM Status: COMPLETED Source: [employer] [facility] Confirmed pickup time of 6:0 0pm on 07/09/24 by transport [email or web address] via wheelchair at phone number [phone]. Location of facility drop off is [facility]. Facility notified via [facility]port, TCC & SW notified on secure chat. [phone] Observed: 07/09/2024 12:50 PM Status: COMPLETED Source: [facility] Received a message that pt i s ready to return to [facility]. Messaged Care team, ABHAY orders/New OPAT/DORIS to be completed. When completed PERSONAL PROPERTY ASSESSOR will be tasked to send to SNF. No auth needed. PERSONAL PROPERTY ASSESSOR Tasked to set up Round Trip for 3:00 today. [phone] Observed: 07/09/2024 11:37 AM Status: COMPLETED Source: [facility] Pt discussed 07-09-24 during i nterdisciplinary rounds. Pt admitted due to concerns of infection from [facility], with discharge plan being to return. TCC to follow for discharge planning. SW to follow for transportation assistance. HARGE SUMMARY Observed: 07/09/2024 11:36 AM Status: COMPLETED Source: [facility] Hospitalist Discharge Summar [facility] [employer] ([facility]) Carla Sanchez : 1950 Admit date: 07/06/2024 Discharge date: 07/09/2024 Admitting Physician: Jorge Alberto Smyth MD Primary Care Physician: MARY SMITH Recommended Follow-up: Jim Barcenas MD [address] [place] [id number] head in 1-[address] Barcenas-office will call with details Mary Smith [address] [facility] [id number] Disposition: Patient discharged in stable condition. Greater than 31 minutes spent discharging the patient and coming up with patient discharge plan. Follow up with MARY SMITH in 4-8 weeks Follow up NSGY in 1-2 weeks Continue IV vancomycin with end date 08/08/24 Hospital Course: Carla Sanchez is a 74 y.o. female with significant past medical history of exposed hardware L craniotomy on 06/27 for removal infected bone flap and eposed hardwar, fibromyalgia on baclofen, GERD, UTI, IZZY, duodenal ulcer, also R craniotomy in 2021 for subdural hematoma with MMA embilization who presented on 07/06 as transfer from [place] with chief complaint of headache and vomiting. ICU was consulted for management of intracranial hemorrhage Patient states she was in her normal state of health until 2 days ago when she started experiencing headaches and that she vomited today. She was transferred from her transitional care unit to the emergency department at [facility] where workup there with CT head showed new foci of likely intracranial hemorrhage at the surgical bed with slight increase of midline shift from prior 3mm to 5 mm. Neurosurgery consulted. Recommended repeat CTH for interval assessment of midline shift. Demonstrated stable small L sided hygroma in interval imaging. Recommended OP follow up for bone flap replacement planning after completion of IV antibiotic course. ID weighed in, recommended continuing vancomycin course as previously written; OPAT completed again. Continue vanc IV with stop date of 08/08/24. Discharged to [facility] in stable condition. 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 Pulse Ox: No data recorded Supplemental O2: Physical Exam Vitals reviewed. Constitutional: General: She is not in acute distress. Appearance: She is not ill-appearing, toxic-appearing or diaphoretic. HENT: Head: Comments: S/p L craniotomy, sutures in place without active bleeding, erythema, discharge, Cardiovascular: Rate and Rhythm: Normal rate. Pulmonary: Effort: Pulmonary effort is normal. Abdominal: Palpations: Abdomen is soft. Musculoskeletal: Right lower leg: No edema. Left lower leg: No edema. Skin: General: Skin is warm and dry. Neurological: Mental Status: She is alert and oriented to person, place, and time. Mental status is at baseline. Motor: Weakness present. Psychiatric: Mood and Affect: Mood normal. Behavior: Behavior normal. No results for input(s): WBC, HGB, PLT in the last 72 hours. No results for input(s): NA, K, CL, CO2, BUN, CREATININE, GLUCOSE in the last 72 hours. No results for input(s): AST, ALT, BILITOT, ALKPHOS in the last 72 hours. No lab exists for component: ALB No results found for: TRIG, HDL, LDLCALC, CHOL No results found for: PHART, PO2ART, LSH4LGP No results for input(s): INR in the last 72 hours. No results for input(s): DDIMER in the last 72 hours. No results found for: HGBA1C No results found for: TSH Urine Culture: No results found for this or any previous visit. Imaging: POCT glucose meter Result Date: 07/07/2024 Performed by: [facility], [address] [place] [address] CLIA ID: [id number] CT head wo IV contrast Result Date: 07/07/2024 Patient Name: CARLA SANCHEZ : 1950 [facility]#: [id number] Exam Date/Time: 07/07/2024 12:10 Procedure: CT HEAD WO IV CONTRAST Ordering Provider: SMYTH ALEKSANDAR Reason For Exam: Subarachnoid hemorrhage (SAH) EXAMINATION: CT HEAD WO IV CONTRAST HISTORY: Subarachnoid hemorrhage (SAH) - - - - - [id number] - - - - TECHNIQUE: CT head without contrast. Dose reduction was employed with automated exposure control. COMPARISON: CT of the head dated July 07, 2024 and June 28, 2024 RESULT: Left frontoparietotemporal craniectomy defect is again noted. The underlying parenchyma extends into the craniectomy defect. High attenuation fluid is noted within the posterior margin of the craniectomy defect similar to previous exam. Extra-axial fluid collection is noted overlying the left middle frontal gyrus measuring approximately 1.4 x 4.0 cm. There is also low attenuation extra-axial fluid collection overlying the left temporal lobe measuring approximately 0.7 cm in maximal thickness, similar to exam from earlier today, though new compared to previous exam from June 28, 2024. There is left to right midline shift again noted approximately 7 mm at the level of the third ventricle. Postsurgical changes from right frontal craniotomy are also noted. Acute change: No evidence of an acute infarct. Chronic change: None apparent. Parenchyma: There is no significant volume loss. The brain parenchyma is otherwise within normal limits for age. Ventricles: Normal caliber and morphology. Other: Atherosclerotic calcifications are noted of the carotid siphons Health Worker (topogram) images: No additional findings. There is low attenuation subdural extra-axial fluid in the left middle cranial fossa overlying the left temporal lobe as well as at the left frontal convexity overlying the left superior and middle frontal gyri. There is associated left to right midline shift approximately 7 mm. Findings similar to previous CT of the head obtained earlier today. Report Dictated on Electronically Signed By: Julián Feliciano MD Electronically Signed Date/Time: 07/07/2024 12:[address] head wo IV contrast Result Date: 07/07/2024 Patient Name: CARLA SANCHEZ : 1950 Exam Date/Time: 07/07/2024 04:53 Procedure: CT HEAD WO IV CONTRAST Ordering Provider: SMYTH ALEKSANDAR Reason For Exam: Intracranial hemorrhage at prior L craniotomy site on outside scan, repeat CT head for stability Indication: Left craniotomy Comparison date: 06/28/2019 10/05/2024 FINDINGS: Dose reduction was employed with automated exposure control.3 mm unenhanced imaging of the brain performed. Images viewed in multiple orthogonal planes. Status post left craniotomy. EXAMINATION LIMITED BY MOTION, STREAK ARTIFACT. Interval low-density left subdural fluid collection, 6 mm in thickness. Left posterior acute subdural hematoma 6 mm. Parafalcine acute appearing subdural posteriorly. Acute blood along the tentorium. Midline shift to the right, 8 mm, increased. No definite acute infarct seen. Orbits within normal limits, limited lack of contrast. Review of the paranasal sinuses shows no air-fluid levels. New subdural hematoma. Midline shift, increased compared to prior. CTR Dr. Barcenas Report Dictated on Electronically Signed By: Manuel Medel MD Electronically Signed Date/Time: 07/07/2024 5:20 AM EST XR chest 1 view Result Date: 07/06/2024 Patient Name: CARLA SANCHEZ : 1950 Exam Date/Time: 07/06/2024 21:18 Procedure: XR CHEST 1 VIEW Ordering Provider: SMYTH ALEKSANDAR Reason For Exam: Evaluate picc line INDICATION: Evaluate PICC line placement. VIEWS: Chest portable-one image COMPARISON: 07/02/2024 FINDINGS: A left PICC line is present with tip overlying the caval atrial junction. The trachea is midline. The heart is not enlarged. The lung volumes are low. The costophrenic angles are sharp. Left PICC line. Report Dictated on Electronically Signed By: Saira House MD Electronically Signed Date/Time: 07/06/2024 11:10 PM EST Consults: IP CONSULT TO NEUROSURGERY IP CONSULT TO INFECTIOUS DISEASES IP CONSULT TO GERIATRICS Discharge Medications: Medication List CHANGE how you take these medications acetaminophen 500 MG tablet Commonly known as: Tylenol Take 2 tablets (1,000 mg) by mouth every 6 hours as needed for headaches. What changed: when to take this reasons to take this sennosides 8.6 MG tablet Commonly known as: Senokot Take 2 tablets (17.2 mg) by mouth Nightly as needed for constipation (If no BM in last 24hrs). What changed: how much to take when to take this reasons to take this CONTINUE taking these medications baclofen 10 MG tablet Commonly known as: Lioresal CLARITIN PO pantoprazole 40 MG EC tablet Commonly known as: ProtoNix TURMERIC PO vancomycin 1000 MG/200ML solution VITAMIN B COMPLEX PO vitamin C 500 MG tablet VITAMIN D PO STOP taking these medications hyoscyamine 0.125 MG tablet Commonly known as: Anaspaz,Levsin mupirocin 2 % ointment Commonly known as: Bactroban ASK your doctor about these medications ondansetron ODT 4 MG disintegrating tablet Commonly known as: Zofran-ODT Take 1 tablet (4 mg) by mouth every 8 hours as needed for nausea or vomiting for up to 7 days. Ask about: Should I take this medication? oxyCODONE 5 MG immediate release tablet Commonly known as: Roxicodone Take 0.5 tablets (2.5 mg) by mouth every 6 hours as needed for severe pain (7-10) (for severe headaches refractory to tylenol) for up to 5 days. Ask about: Should I take this medication? Where to Get Your Medications You can get these medications from any pharmacy Bring a paper prescription for each of these medications acetaminophen 500 MG tablet ondansetron ODT 4 MG disintegrating tablet oxyCODONE 5 MG immediate release tablet Information about where to get these medications is not yet available Ask your nurse or doctor about these medications sennosides 8.6 MG tablet Signed: Noel Sharp MD 30 Observed: 07/09/2024 11:36 AM Status: COMPLETED Source: [facility] Problem: Knowledge Deficit Goal: Patient/family/caregiver demonstrates understanding of disease process, treatment plan, medications, and discharge instructions Outcome: ProgressingProblem: Potential for Compromised Skin Integrity Goal: Skin Integrity is Maintained or Improved Outcome: Progressing PROGRESS NOTE Observed: 07/09/2024 10:20 AM Status: COMPLETED Source: [facility] Pharmacy to Dose Vancomycin - Progress Note Lab Results Component Value Date CREATININE 0.59 07/09/2024 BUN 10 07/09/2024 WBC 6.3 07/09/2024 VANCOTROUGH 23.3 07/07/2024 Doses, serum creatinine, and vancomycin levels interfaced automatically to [employer] and data has been analyzed and interpreted. Infectious Diagnosis: SSTI/osteomyelitis Est CrCl: 103 mL/min (Cockcroft-Gault) Assessment: Current regimen vancomycin 1000 mg every 12 hours (13 mg/kg) Predicted AUC = 552 mg/L*hr (goal 400-600 mg/L*hr) PAUC = 100% (probability that AUC is >400 mg/L*hr) Pconc = 6% (probability that Ctrough is above 20 mcg/mL (toxicity)) Plan: Is the current dose therapeutic? [x] Yes - obtain next level on 07/14 unless predicted AUC is sub-/supra-therapeutic or change in serum creatinine. Trend serum creatinine. Trend AUC using Bayesian Modeling. Orders placed. DATE: 07/09/24 TIME: 10:18 AM Padilla Garcia [facility] Clinical Pharmacist Available via Secure Chat PROGRESS NOTE Observed: 07/09/2024 8:51 AM Status: COMPLETED Source: [facility] Geriatric Medicine Inpatient Consult Service Admission Date: 07/06/2024 Assessment Principal Problem: Intracranial bleed (HCC) Plan At risk for delirium --not delirious in conversation today, alert and oriented times 3 --Risk factors: pain, advanced age, acute illness, and history of delirium --Encourage PO intake, time up in chair, family visits, supervised ambulation, and sleep hygiene --If agitated, assess for and consider treating for pain --QTc= 481 on 06/24 --No antipsychotic unless patient is danger to self/others/treatment --Monitor for constipation/urinary retention - last BM 07/07 --Possible medication contributions: PRN baclofen-used last 07/06, home PRN medication PRN oxycodone-used last 07/08 Pain -reports pain mostly to CROUCH -recommend to change PRN acetaminophen to 650mg [id number] PRN due to eleavted LFTs and recommend to repeat LFTs Lab Results Component Value Date ALT 57 (H) 06/23/2024 AST 65 (H) 06/23/2024 ALKPHOS 77 06/23/2024 BILITOT 1.2 (H) 06/23/2024 -Agree with PRN oxycodone for breakthrough pain, wean as able Follow-up: will sign off, please call if questions Subjective Chief Complaint: exposed hardware from her previous craniotomy surgery Geriatrics consulted for geriatric patient, subdural hematoma HPI- The patient is new to me but seen by the Geriatric Inpatient Consult team. 74 y.o. year-old female admitted [facility] care from [facility] facility for headache, nausea and vomiting. CT head showed new subdural hematoma with increased midline shift when compared to prior CT head. Diagnosed with left SDH with brain compression midline shift, parafalcine SDH, craniotomy surgical site infection with MRSA. History of craniotomy due to subdural hematoma 08/2014 per care everywhere. Known to Dr. Sow who performed a right craniotomy for subdural hematoma on 09/09/2021. Presented to Dr. Sow in April 2024 due to exposed hardware from previous surgery. Seen again outpatient by Dr. Sow where plan was made to remove hardware from left craniotomy due to presumed infection in the setting of hardware exposure. S/p removal of exposed hardware and infected bone flap on 06/27. Discharged on 07/03 to [facility]. 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 Placed on vancomycin with a stop date of 08/08/24. Per initial geriatric consult, patient was walking independently at [facility]. Independent in all ADL and IADls at baseline. Reports today she lives home alone with 2 dogs. Her neighbor is watching her dogs currently. Interval History: Transferred to . Patient today reports she slept well last night, reports her appetite has been good. Reports she has a CROUCH at times, when really bad will take the PRN Oxycodone, but usually the Tylenol helps. Patient has been cooperative with medications. No documented behaviors noted. Progress notes reviewed: -per CM, referral placed to [facility] for SNF -per neurosurgery, CT scan of head on 07/08 shows stable left side hygroma. Would not recommend surgical intervention for this at this time. Think the solution will be replaced her bone flap, when she is safe from an acute infection standpoint. 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 Transfers supervision. Ambulated 600 feet SBA no device. Recommending home with assist PRN . Review of Systems Constitutional: Negative for appetite change, chills, diaphoresis, fatigue and fever. HENT: Negative for congestion and mouth sores. Respiratory: Negative for cough and shortness of breath. Cardiovascular: Negative for chest pain and leg swelling. Gastrointestinal: Negative for abdominal distention, abdominal pain, constipation and diarrhea. Genitourinary: Negative for difficulty urinating and dysuria. Musculoskeletal: Negative for arthralgias. Skin: Positive for wound. Neurological: Positive for headaches (at times). Negative for dizziness, facial asymmetry and weakness. Psychiatric/Behavioral: Negative for confusion and sleep disturbance. Objective BP 113/55 (BP Location: Left arm, Patient Position: Sitting) Pulse 71 Temp 36.6 ?C (97.9 ?F) (Temporal) Resp 18 Wt 169 lb 6.4 oz (76.8 kg) SpO2 98% BMI 26.53 kg/m? Intake/Output Summary (Last 24 hours) at 07/09/2024 1241 Last data filed at 07/09/2024 0622 Gross per 24 hour Intake 300 ml Output -- Net 300 ml Wt Readings from Last 3 Encounters: 07/09/24 169 lb 6.4 oz (76.8 kg) 07/03/24 171 lb (77.6 kg) 06/23/24 175 lb 6.4 oz (79.6 kg) Current Facility-Administered Medications: acetaminophen (Tylenol) tablet 1,000 mg, 1,000 mg, Oral, q6h PRN, Manuel Diego DO, 1,000 mg at 07/08/24 2044 baclofen (Lioresal) tablet 10 mg, 10 mg, Oral, BID PRN, Manuel Diego DO, 10 mg at 07/06/24 2242 chlorhexidine (Hibiclens) 4 % solution, , Topical, Daily, Manuel Diego DO, Given at 07/08/24 2100 hydrALAZINE (Apresoline) injection 10 mg, 10 mg, IntraVENous, q1h PRN, Manuel Diego DO labetalol (Normodyne,Trandate) injection 10 mg, 10 mg, IntraVENous, q1h PRN, Manuel Diego DO mupirocin (Bactroban) 2 % ointment 1 Application, 1 Application, Nasal, BID, Manuel Diego DO, 1 Application at 07/09/24 0839 naloxone (Narcan) injection 0.4 mg, 0.4 mg, IntraVENous, q5 min PRN, Manuel Diego DO ondansetron ODT (Zofran-ODT) disintegrating tablet 4 mg, 4 mg, Oral, q8h PRN OR ondansetron (Zofran) injection 4 mg, 4 mg, IntraVENous, q6h PRN, Manuel Diego DO oxyCODONE (Roxicodone) immediate release tablet 2.5 mg, 2.5 mg, Oral, q4h PRN OR oxyCODONE (Roxicodone) immediate release tablet 5 mg, 5 mg, Oral, q4h PRN, Manuel Diego DO, 5 mg at 07/08/24 0218 pantoprazole (ProtoNix) EC tablet 40 mg, 40 mg, Oral, Daily, Manuel Diego, DO, 40 mg at 07/09/24 0839 polyethylene glycol (PEG) 3350 (Miralax) packet 17 g, 17 g, Oral, Daily PRN, Manuel Francois Johnathon, DO sennosides (Senokot) tablet 8.6 mg, 1 tablet, Oral, BID, Manuel Diego, DO, 8.6 mg at 07/09/24 0839 sodium chloride 0.9% (NS) flush 10 mL, 10 mL, IntraCATHeter, q12h, Manuel Diego, DO, 10 mL at 07/09/24 1102 sodium chloride 0.9% (NS) flush 10 mL, 10 mL, IntraCATHeter, PRN, Manuel Diego, DO sodium chloride 0.9% (NS) flush 30 mL, 30 mL, IntraVENous, q6h, Manuel Diego, DO, 30 mL at 07/09/24 0839 sodium chloride 0.9% (NS) flush 30 mL, 30 mL, IntraVENous, PRN, Manuel Francois Johnathon, DO sodium chloride 0.9% (NS) flush 30 mL, 30 mL, IntraVENous, PRN, Manuel Diego, DO vancomycin IVPB 1000 mg in 200 mL NS (premix), 1,000 mg, IntraVENous, q12h, Manuel Diego, DO, Stopped at 07/09/24 1215 Physical Exam Constitutional: General: She is not in acute distress. Comments: Pleasant, talkative female sitting up in bed on RA, NAD HENT: Head: Comments: Left sided skull depression at site of previous surgery. Bradshaw in place at surgical incision. Mouth/Throat: Mouth: Mucous membranes are moist. Dentition: Has dentures (top only. Has her own teeth on the bottom.). Pharynx: Oropharynx is clear. Eyes: General: Right eye: No discharge. Left eye: No discharge. Conjunctiva/sclera: Conjunctivae normal. Cardiovascular: Rate and Rhythm: Normal rate and regular rhythm. Pulses: Radial pulses are 2+ on the right side and 2+ on the left side. Pulmonary: Effort: Pulmonary effort is normal. No respiratory distress. Breath sounds: Normal breath sounds. No wheezing or rales. Abdominal: General: Bowel sounds are normal. There is no distension. Palpations: Abdomen is soft. Tenderness: There is no abdominal tenderness. There is no guarding. Musculoskeletal: Right lower leg: No edema. Left lower leg: No edema. Skin: General: Skin is warm and dry. Neurological: Mental Status: She is alert and oriented to person, place, and time. Psychiatric: Mood and Affect: Mood normal. Behavior: Behavior normal. Labs and Imaging: Recent Results (from the past 24 hours) POCT glucose meter Collection Time: 07/08/24 7:32 PM Result Value Ref Range Glucose 101 (H) 70 - 100 mg/dL CBC auto differential Collection Time: 07/09/24 2:06 AM Result Value Ref Range Auto WBC 6.3 3.6 - 10.7 10*3/uL RBC 3.42 (L) 3.80 - 5.20 10*6/uL Hemoglobin 10.1 (L) 11.7 - 16.0 g/dL Hematocrit 32.0 (L) 35.0 - 47.0 % MCV 93.6 77.0 - 99.0 fL MCH 29.5 26.0 - 34.0 pg MCHC 31.6 30.5 - 36.0 % RDW 13.8 11.5 - 15.0 % Platelets 147 140 - 440 10*3/uL MPV 10.7 9.0 - 12.7 fL nRBC 0.0 0.0 - 2.0 /100 WBCs Neutrophils Relative 60.5 38.0 - 82.0 % Lymphocytes Relative 25.6 15.0 - 45.0 % Monocytes Relative 9.1 5.0 - 13.0 % Eosinophils Relative 4.0 0.0 - 6.0 % Basophils Relative 0.3 0.0 - 2.0 % Immature Grans % 0.5 0.0 - 2.0 % Neutrophils Absolute 3.8 1.8 - 7.5 10*3/uL Lymphocytes Absolute 1.6 1.0 - 4.3 10*3/uL Monocytes Absolute 0.6 0.0 - 0.9 10*3/uL Eosinophils Absolute 0.3 0.0 - 0.5 10*3/uL Basophils Absolute 0.0 0.0 - 0.2 10*3/uL Immature Grans Absolute 0.0 <0.1 10*3/uL Basic metabolic panel Collection Time: 07/09/24 2:06 AM Result Value Ref Range SODIUM 139 136 - 145 mmol/L POTASSIUM 3.8 3.5 - 5.1 mmol/L CHLORIDE 107 98 - 107 mmol/L CARBON DIOXIDE 27 23 - 31 mmol/L UREA NITROGEN 10 9 - 23 mg/dL CREATININE 0.59 0.57 - 1.11 mg/dL GLUCOSE 102 82 - 115 mg/dL CALCIUM 8.1 (L) 8.8 - 10.0 mg/dL ANION GAP 5 3 - 13 mmol/L eGFR >90.0 >60.0 mL/min/1.73m*2 POCT glucose meter Collection Time: 07/09/24 7:23 AM Result Value Ref Range Glucose 93 70 - 100 mg/dL POCT glucose meter Collection Time: 07/09/24 12:07 PM Result Value Ref Range Glucose 83 70 - 100 mg/dL No results found for: TSH No results found for: [id number] No results found for: VITD25 Reviewed: allergies, previous encounters, active problem lists, medications, and labs ING NOTE Observed: 07/09/2024 8:47 AM Status: COMPLETED Source: [facility] [employer] [facility] Wound Care consulted for Pre ssure Injury Prevention. Pt's Brennon= 20, pt is no longer at risk. Skin Care Precaution order set in place. Dietitian consult in place. Pt/OT consult in place. Will continue to follow peripherally. Please voicera or secure chat message with any questions. Amara Zaragoza RN, CWCN 30 Observed: 07/09/2024 6:27 AM Status: COMPLETED Source: [facility] Problem: Knowledge Deficit Goal: Patient/family/caregiver demonstrates understanding of disease process, treatment plan, medications, and discharge instructions Outcome: ProgressingProblem: Potential for Compromised Skin Integrity Goal: Skin Integrity is Maintained or Improved Outcome: ProgressingProblem: Urinary Incontinence Goal: Perineal skin integrity is maintained or improved Outcome: Progressing BASIC METABOLIC PANEL Collected: 2024 2:06 AM Status: F Source: [facility] TYPE CODE TESTS RESULT OUT OF RANGE REFERENCE UNITS LAB [id number] SODIUM 139 136-145 mmol/L LAB [id number] POTASSIUM 3.8 3.5-5.1 mmol/L Result Comment: Plasma potas sium values may be up to 0.5 mmol/L lower than serum values. LAB [id number] CHLORIDE 107 98-107 mmol/L LAB [id number] CARBON DIOXIDE 27 23-31 mmol/L LAB [id number] UREA NITROGEN 10 9-23 mg/dL LAB [id number] CREATININE 0.59 0.57-1.11 mg/dL LAB [id number] GLUCOSE 102 82-115 mg/dL LAB [id number] CALCIUM 8.1 Low 8.8-10.0 mg/dL LAB [id number] ANION GAP (VALLE, CALCULATED) 5 3-13 mmol/L LAB [id number] GLOMERULAR FILTRATION RATE ML/MIN/1.73 SQ M.PREDICTED >90.0 >60.0 mL/min/1. 73m*2 Result Comment: Calculation based on the Chronic Kidney Disease Epidemiology Collaboration (CKD-EPI) equation refit without adjustment for race Performed By: #### [id number] ### # Prize Jacker: ARTURO TANNER ([id number]) [facility] ([address] CBC WITH AUTO DIFFERENTIAL Collected: 07/09/2024 2:06 AM Status: F Source: [facility] TYPE CODE TESTS RESULT OUT OF RANGE REFERENCE UNITS LAB [id number] WBC 6.3 3.6-10.7 10*3/uL LAB 7014375 RBC 3.42 Low 3.80-5.20 10*6/uL LAB 4504754 HEMOGLOBIN 10.1 Low 11.7-16.0 g/dL LAB 4929891 HEMATOCRIT 32.0 Low 35.0-47.0 % LAB 1374372 MCV 93.6 77.0-99.0 fL LAB 7380541 MCH 29.5 26.0-34.0 pg LAB 8804655 MCHC 31.6 30.5-36.0 % LAB 1925389 RDW 13.8 11.5-15.0 % LAB 7942582 PLATELET COUNT 147 140-440 10*3/uL LAB 2842665 MPV 10.7 9.0-12.7 fL LAB 254 NRBC 0.0 0.0-2.0 /100 WBCs LAB 3570065 NEUTROPHILS RELATIVE 60.5 38.0-82.0 % LAB 0273199 LYMPHOCYTES RELATIVE 25.6 15.0-45.0 % LAB 4083991 MONOCYTES RELATIVE 9.1 5.0-13.0 % LAB 9228699 EOSINOPHILS RELATIVE 4.0 0.0-6.0 % LAB 6675067 BASOPHILS RELATIVE 0.3 0.0-2.0 % LAB 9154811 IMMATURE GRANS % 0.5 0.0-2.0 % LAB 6731805 NEUTROPHILS ABSOLUTE 3.8 1.8-7.5 10*3/uL LAB 2068696 LYMPHOCYTES ABSOLUTE 1.6 1.0-4.3 10*3/uL LAB 4152349 MONOCYTES ABSOLUTE 0.6 0.0-0.9 10*3/uL LAB 9169020 EOSINOPHILS ABSOLUTE 0.3 0.0-0.5 10*3/uL LAB 9673738 BASOPHILS ABSOLUTE 0.0 0.0-0.2 10*3/uL LAB 446088 IMMATURE GRANS ABSOLUTE 0.0 <0.1 10*3/uL Performed By: #### [id number] # ### Prize Jacker: ARTURO TANNER ([id number]) [facility] ([place] [address] Observed: 07/08/2024 4:46 PM Status: COMPLETED Source: [facility] Problem: Knowledge Deficit Goal: Patient/family/caregiver demonstrates understanding of disease process, treatment plan, medications, and discharge instructions Outcome: ProgressingProblem: Potential for Compromised Skin Integrity Goal: Skin Integrity is Maintained or Improved Outcome: ProgressingGoal: Nutritional status is improving Outcome: ProgressingProblem: Urinary Incontinence Goal: Perineal skin integrity is maintained or improved Outcome: Progressing PROGRESS NOTE Observed: 07/08/2024 1:44 PM Status: COMPLETED Source: [facility] Pt is on an easy to chew t with 100% intake. No nutritional needs identified; sign off to diet aide 07/28/24. CT HEAD WO IV CONTRAST Observed: 025 12:56 PM Status: F Source: [facility] Patient Name: CARLA SANCHEZ : 1950 Exam Date/Time: 07/08/2024 10:59 Procedure: CT HEAD WO IV CONTRAST Ordering Provider: JUAN, , ROBERT Reason For Exam: Subdural hematoma CT HEAD WITHOUT CONTRAST CLINICAL INDICATION: Acute on subdural hematoma. TECHNIQUE: Axial CT images of the brain were obtained without intravenous contrast. Coronal and sagittal reformatted images were also made available for interpretation. Dose reduction was employed with automated exposure control. COMPARISON: CT head earlier the same day 4:45 AM. FINDINGS: Limitations: Motion and streak artifact. Differences in patient positioning limits evaluation to some extent. Ventricles and Extra-axial spaces/parenchyma: Left cerebral subdural collection is likely similar in size but now demonstrates isodense appearance in relation to adjacent brain parenchyma which limits evaluation to some extent. There is persistent mass effect which appears slightly improved with 5 mm of [id number] midline shift. Trace right frontal parietal subdural hematoma, versus dural thickening, series 3 image 142 is unchanged. Small-white differentiation appears maintained allowing for limitations. Configuration of the ventricles overall similar. Paranasal sinuses: Mucosal thickening with air-fluid levels in the sphenoid sinus Mastoid air cells: Appear fairly well aerated. Orbital contents: Within normal limits Calvarium and Skull base: Postsurgical changes from left frontoparietotemporal craniectomy and more remote right frontal craniotomy. IMPRESSION: Redemonstration of subdural hematoma, left cerebral convexity, likely similar in size though isodensity of this collection limits evaluation and direct comparison to some extent. Mass effect appears diminished including 5 mm of [id number] midline shift which previously measured around 11 mm. Trace right frontal parietal subdural hematoma versus dural thickening unchanged. Report Dictated on Electronically Signed By: Rell Mendenhall MD Electronically Signed Date/Time: 07/08/2024 12:56 PM [facility] Ezio protocol [id number] Observed: 07/08/2024 11:42 AM Status: COMPLETED Source: [facility] Return referral placed to [facility] via Careport per TCC request. Await review and response regarding ability to accept. TCC notified. [id number] Observed: 07/08/2024 10:59 AM Status: COMPLETED Source: [facility] Care Management Progress Not e Consults to IP CONSULT TO NEUROSURGERY IP CONSULT TO INFECTIOUS DISEASES PHARMACY TO DOSE VANCO IP WOUND CARE NURSE CONSULT TO EVAL IP CONSULT TO GERIATRICS Discharge Planning/Barriers: 02/04/25 1049 Rapid Rounds Attendance Compliance Attorney Planned Discharge Disposition SNF Today we still await Administering IV medications;Clinical stability;Project Development Manager recommendations (comment) Additional Comments: PT/OT, LT IVABX/PICC/OPAT CM spoke with patient at bedside. Introduced myself and role. [facility]. CM tasked PERSONAL PROPERTY ASSESSOR to send return referral via careport. Will need OPAT before patient can return. No facility precert needed, can discharge when medically ready. Discharge Plan: [facility] SNF. Will continue to follow. Length of Stay (Days): 2 GMLOS: No GMLOS Documented [id number] Observed: 07/08/2024 10:56 AM Status: COMPLETED Source: [facility] ICU Transfer Checklist Transfer Med Reconciliation (resume home meds if able, convert to PO if able) Complete Antibiotics (name, indication, duration, convert to PO if able) Yes, addressed in today's progress note Steroid (indication, duration, convert to PO if able) None Anticipated [place] Medications (ICU initiated) or Dose Changes and Indication No Permanently Discontinued Home Medications and Reason for medication contraindication No Ngo Catheter (please remove if able. Note: place DC order) No Central Line (please remove if able. Note: place DC order) Yes, indication PICC for antibiotics Transfer Discussed with: Dr. Basim MD If additional questions for ICU team within 24 hours of ICU transfer, page MICU Concrete Pointer (5am-5pm) or MICU Night Team (5pm-5am) for clarifications. RESS NOTE Observed: 07/08/2024 10:54 AM Status: COMPLETED Source: [facility] PHYSICAL THERAPY [facility] Initial Evaluation Name/MRN: Carla Sanchez ([id number]) Evaluation Date: 07/08/2024 Date of : 1950 Admission Date: 07/06/2024 6:25 PM Age: 74 y.o. Room/Bed: T2-/T2 A Discharge Recommendation: Home with assist PRN Equipment Needed: No Assessment IMPRESSION: 74 y.o. pt admitted to [facility] for ICH, recent (06/27) craniotomy with hardware removal. They were supervision for bed mobility, supervision for transfers, and SBA for ambulation. She has been at rehab for IV antibiotics. Would recommend home with assistance PRN at discharge from a mobility stand point. Admitting Diagnosis: ICH, recent (06/27) craniotomy with hardware removal Prognosis: good Performance Deficits /Impairments: Decreased Functional Mobility and Decreased Balance Decision Making: Low Complexity Subjective Pt supine in bed. Agreeable to PT session. Cleared by nursing Pain: Pt denies any current pain. Past Medical History: Past Medical History: Diagnosis Date Anemia Arthritis Brain bleed ([facility]) 2013, 2021 Diverticulitis Gastric ulcer Leg fracture, right Right arm fracture Seizures ([facility]) 2013 with first craniotomy- while in hospital- none since Thoracic spine fracture ([facility]) Past Surgical History: Past Surgical History: Procedure Laterality Date ABDOMINAL SURGERY 07/2021 on stomach CHOLECYSTECTOMY COLONOSCOPY CRANIOTOMY Left 2013 DILATION AND CURETTAGE OF UTERUS HAND SURGERY Right fracture repiair SMALL INTESTINE SURGERY small part removed UPPER GASTROINTESTINAL ENDOSCOPY Admission Diagnosis: Patient Active Problem List Diagnosis Date Noted Intracranial bleed ([facility]) 07/06/2024 Infected bone flap, initial encounter ([facility]) 06/27/2024 Intracranial hemorrhage ([facility]) 10/19/2021 SDH (subdural hematoma) ([facility]) 09/06/2021 Medical Precautions: No active isolations Proper PPE donned/doffed in accordance with facility standards. Fall Risk: [place] Fall Risk Score: 35 (Medium Risk) Precautions/Restrictions: Braces or Orthoses: helmet when OOB Lines/Drains/Airways: PIV, tele Fall Precautions Family/Caregiver Present: none Overall Cognitive Status: WFL Overall Orientation Status: Oriented x4 Vision: Not Assessed Hearing: normal Social/Functional History Patient admitted from home. Lives With: Alone Type of Home: single family home Home Layout: Two Level Home Home Access: Stairs to Enter with Rails (# of stairs: 3+4) Bathroom Shower/Tub: Toilet: Standard Home Equipment: none Homemaking Responsibilities: Independent Receives Help From: None Active Pulverizer Tender: Prior Level of Function Prior Level of ADL Function: Independent Prior Level of Mobility: Independent; Device: None Prior Level of Transfers: Independent Objective Lower Extremity Assessment AROM: WFL PROM: WFL Strength: WFL (4/5 overall) Sensation: WFL - baseline Pk foot neuropathy Balance: Not assessed this session Bed Mobility: Supine to sit: Supervision Sit to supine: Supervision Transfers Sit to stand: Supervision Stand to sit: Supervision Ambulation Ambulation 1 Assistive device(s) used: None Assist level: SBA Distance (ft): 600' Quality of gait: No gait deviations Outcome Measures AM-PAC How much HELP from another person do you currently need Turning from your back to your side while in a flat bed without using bedrails?: None Moving from lying on your back to sitting on the side of a flat bed without using bedrails?: None Moving to and from a bed to a chair (including a wheelchair)?: None Standing up from a chair using your arms (wheelchair or bedside chair)?: None Walking in a hospital room?: A Little Stair climbing assessed?: No AM-PAC Inpatient Mobility Raw Score (No Stairs) : 19 JH-HLM -M Score: Walked 250 ft or more (i.e. several laps on unit) Plan Pt would benefit from skilled acute PT services to address Strengthening, Gait Training, Balance Training, Functional Mobility Training, Endurance Training, Safety Education and Training, Stair Training, Equipment Evaluation/Education, Neuromuscular Re-Education Training, and Patient/Caregiver Training. Frequency: 3x/week for 4 weeks Barriers: Impaired balance Safety/Education Safety Safety Devices in place: call light within reach, left in bed, gait belt, and nurse notified Restraints: No Education Education Given To: patient Education Provided: PT Role, PT Goals, Plan of Care, Transfer Training, Fall Prevention Education, and Benefits of Increasing Activity Education Method: Verbal Barriers to Learning: None Education Outcome: Verbalized Understanding Goals Patient Stated Goal: to heal well and go home Encounter Problems Encounter Problems (Active) Mobility Patient will ambulate 800 feet with independence and no assistive device in order to improve safety and independence with mobility. Start: 07/08/24 Expected End: 08/05/24 Patient will ascend and descend 4 stairs with least restrictive device and modified independence in order to safely negotiate home. Start: 07/08/24 Expected End: 08/05/24 Transfers Patient will perform bed mobility with independence in order to improve independence and prepare for out of bed mobility. Start: 07/08/24 Expected End: 08/05/24 Patient will complete functional transfer with no assistive device with independence in order to prepare for ambulation. Start: 07/08/24 Expected End: 08/05/24 Therapy Time Individual Co-Treatment Co-Evaluation Time In 0810 Time Out 0826 Minutes 16 Timed Code Treatment Minutes: (low eval) Crys Armando, PT Patient's Physical Therapy Plan of Care supervision is transferred to a [facility] Physical Therapist. Goals and/or treatment plan was established in collaboration with patient/family/other representatives. PROGRESS NOTE Observed: 07/08/2024 10:47 AM Status: COMPLETED Source: [facility] OCCUPATIONAL THERAPY [facility] Initial Evaluation Name/MRN: Carla Sanchez ([id number]) Evaluation Date: 07/08/2024 Date of : 1950 Admission Date: 07/06/2024 6:25 PM Age: 74 y.o. Room/Bed: T2-209/T2-209 A Discharge Recommendation: Home with assist PRN, Home with Home health OT Equipment Needed: No Assessment IMPRESSION: Patient is a 74-year-old female hospitalized s/p recent R craniotomy to remove infected hardware admitted with headaches. Patient is functionally independent with self-care tasks and functional mobility at baseline. Patient is limited by the deficits listed below. Patient is Supervision for UB ADLs, SBA LB ADLs and SBA toileting. Patient is SBA for transfers/functional mobility. Recommending Home with Home OT and Home with Assist PRN upon discharge. Admitting Diagnosis: intracranial bleed Performance Deficits /Impairments: Increased Pain, Decreased Functional Mobility, Decreased ADL status, Decreased Strength, Decreased Safety Awareness, Decreased Endurance, and Decreased Balance Prognosis: Good Decision Making: Low Complexity Subjective Patient standing in room; patient agreeable to therapy evaluation. RN ok'd for participation. Pain: Pt denies any current pain. Past Medical History: Past Medical History: Diagnosis Date Anemia Arthritis Brain bleed (HCC) 2013, 2021 Diverticulitis Gastric ulcer Leg fracture, right Right arm fracture Seizures ([facility]) 2013 with first craniotomy- while in hospital- none since Thoracic spine fracture ([facility]) Past Surgical History: Past Surgical History: Procedure Laterality Date ABDOMINAL SURGERY 07/2021 on stomach CHOLECYSTECTOMY COLONOSCOPY CRANIOTOMY Left 2013 DILATION AND CURETTAGE OF UTERUS HAND SURGERY Right fracture repiair SMALL INTESTINE SURGERY small part removed UPPER GASTROINTESTINAL ENDOSCOPY Admission Diagnosis: Patient Active Problem List Diagnosis Date Noted Intracranial bleed ([facility]) 07/06/2024 Infected bone flap, initial encounter ([facility]) 06/27/2024 Intracranial hemorrhage ([facility]) 10/19/2021 SDH (subdural hematoma) ([facility]) 09/06/2021 Medical Precautions: No active isolations Proper PPE donned/doffed in accordance with facility standards. Fall Risk: [place] Fall Risk Score: 35 (Medium Risk) Precautions/Restrictions: Braces or Orthoses: helmet Lines/Drains/Airways: PIV Family/Caregiver Present: none Overall Cognitive Status: WFL- patient displays some impulsivity Overall Orientation Status: Oriented x4 Social/Functional History Patient admitted from home. Lives With: Alone Type of Home: single family home Home Layout: Two Level Home Home Access: Stairs to Enter with Rails (# of stairs: 3+4) Bathroom Shower/Tub: Walk-in shower with grab bars Toilet: Standard Home Equipment: none Homemaking Responsibilities: Independent Receives Help From: None Active Pulverizer Tender: Prior Level of Function Prior Level of ADL Function: Independent Prior Level of Mobility: Independent; Device: None Prior Level of Transfers: Independent Objective ADLs LE Dressing: SBA- donning/doffing underwear and socks; patient able to thread BLE into pants and underwent and don over with SBA. Toileting: SBA- clothing management and susan-care Grooming: Supervision- washing hands at sink LE Bathing: SBA- standing to wash legs and susan-area Upper Extremity Assessment AROM: WFL PROM: Not assessed this session Strength: WFL Bed Mobility NT- patient OOB pre/post therapy evaluation Transfers/Mobility Sit to stand: SBA Stand to sit: SBA Toilet: SBA Standing balance: SBA Functional mobility: SBA Patient SBA for all transfers and functional mobility. Patient does not require device. Patient transfer on/off commode with no device. Patient with FAIR+ standing balance and tolerance. Patient complete multiple sit-stands with SBA. Device(s) used: None Coordination: Normal Coordination Tone: Normal Tone Sensation: Normal Sensation Vision: No Visual Deficits Tremors: No AM-PAC AM-PAC Inpatient Daily Activity Raw Score: 24 ADL Inpatient [facility] G-Code Modifier: CH Plan Pt would benefit from skilled acute OT services to address Strengthening, Gait Training, Balance Training, Self-Care/ADL Training, Functional Mobility Training, Endurance Training, Safety Education and Training, Pain Management, and Patient/Caregiver Training. Frequency: 2x/week for 4 weeks Barriers: Pain, Impaired balance, Lower extremity weakness, Decreased endurance, and Limited safety awareness Safety/Education Safety Safety Devices in place: All fall risk precautions in place, call light within reach, left in chair, and nurse notified Restraints: No Education Education Given To: patient Education Provided: OT Role, Plan of Care, Precautions, and Discharge Recommendations Education Method: Verbal Barriers to Learning: None Education Outcome: Verbalized Understanding Goals Patient Stated Goal: to go back to rehab Encounter Problems Encounter Problems (Active) Balance Patient will maintain dynamic standing balance for 3-5 minutes with modified independence in order to demonstrate decreased risk of falling. Start: 07/08/24 Expected End: 08/05/24 Bathing Patient will utilize adaptive techniques to bathe body MA. Start: 07/08/24 Expected End: 08/05/24 Dressing Upper Extremities Patient will complete upper body dressing MA. Start: 07/08/24 Expected End: 08/05/24 Dressings Lower Extremities Patient will dress lower body MA. Start: 07/08/24 Expected End: 08/05/24 Toileting Patient will complete toileting tasks at standard toilet with modified independence. Start: 07/08/24 Expected End: 08/05/24 Therapy Time Individual Co-Treatment Co-Evaluation Time In 1018 Time Out 1047 Minutes 29 Timed Code Treatment Minutes: 10 Minutes (self care- 1) Jasmin King, OT Patient's Occupational Therapy Plan of Care supervision is transferred to a [facility] Occupational Therapist. Goals and/or treatment plan was established in collaboration with patient/family/other representatives. CALCIUM, IONIZED Collected: 07/08/2024 9:42 AM Statu s: F Source: [facility] [employer] [facility] TYPE CODE TESTS RESULT OUT OF RANGE REFERENCE UNITS LAB [id number] CALCIUM IONIZED 4.30 4.30-5.20 mg/dL LAB [id number] PH, IONIZED CALCIUM 7.43 7.31-7.46 Performed By: #### [id number] ### # Prize Jacker: ARTURO TANNER ([id number]) [facility] ([facility]) [address] [place] [address] PROGRESS NOTE Observed: 07/08/2024 8:34 AM Status: COMPLETED Source: [facility] Follow-up CT scan of the narinder walker today shows stable small left sided hygroma. I would not recommend surgical intervention for this at this time I think the solution will be to replace her bone flap, when she is safe from an infection standpoint. Recommend transfer from the ICU look at discharge back to rehab she can follow-up in the neurosurgery office in 1 to 2 weeks with a new CT scan of the head at that point we could hopefully start planning for bone flap replacement depending on her progress with infectious disease. PROGRESS NOTE Observed: 07/08/2024 8:16 AM Status: COMPLETED Source: [facility] [employer] [facility] Pharmacy to Dose Vancomycin - Progress Note Lab Results Component Value Date CREATININE 0.57 07/08/2024 BUN 9 07/08/2024 WBC 5.9 07/08/2024 VANCOTROUGH 23.3 07/07/2024 Doses, serum creatinine, and vancomycin levels interfaced automatically to [employer] and data has been analyzed and interpreted. 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 [x] Yes - obtain next level on 07/14/24 unless predicted AUC is sub-/supra-therapeutic or change in serum creatinine. Trend serum creatinine. Trend AUC using Bayesian Modeling. Orders placed. DATE: 07/08/24 TIME: 8:16 AM Dolly Chamorro [facility] Clinical Pharmacist Available via Secure Chat CBC WITH AUTO DIFFERENTIAL Collected: 07/08/2024 6:14 AM Status: F [facility] TYPE CODE TESTS RESULT OUT OF RANGE REFERENCE UNITS LAB [id number] WBC 5.9 3.6-10.7 10*3/uL LAB [id number] RBC 3.67 Low 3.80-5.20 10*6/uL LAB [id number] HEMOGLOBIN 10.9 Low 11.7-16.0 g/dL LAB [id number] HEMATOCRIT 33.9 Low 35.0-47.0 % LAB [id number] MCV 92.4 77.0-99.0 fL LAB [id number] MCH 29.7 26.0-34.0 pg LAB [id number] MCHC 32.2 30.5-36.0 % LAB [id number] RDW 13.7 11.5-15.0 % LAB [id number] PLATELET COUNT 148 140-440 10*3/uL LAB [id number] MPV 10.3 9.0-12.7 fL LAB 254 NRBC 0.0 0.0-2.0 /100 WBCs LAB [id number] NEUTROPHILS RELATIVE 63.4 38.0-82.0 % LAB [id number] LYMPHOCYTES RELATIVE 23.2 15.0-45.0 % LAB 1879792 MONOCYTES RELATIVE 8.6 5.0-13.0 % LAB 3747413 EOSINOPHILS RELATIVE 4.0 0.0-6.0 % LAB [id number] BASOPHILS RELATIVE 0.3 0.0-2.0 % LAB 6321312 IMMATURE GRANS % 0.5 0.0-2.0 % LAB 2224888 NEUTROPHILS ABSOLUTE 3.8 1.8-7.5 10*3/uL LAB 1140429 LYMPHOCYTES ABSOLUTE 1.4 1.0-4.3 10*3/uL LAB 6185216 MONOCYTES ABSOLUTE 0.5 0.0-0.9 10*3/uL LAB 7436423 EOSINOPHILS ABSOLUTE 0.2 0.0-0.5 10*3/uL LAB 7877391 BASOPHILS ABSOLUTE 0.0 0.0-0.2 10*3/uL LAB 484651 IMMATURE GRANS ABSOLUTE 0.0 <0.1 10*3/uL Performed By: #### [id number] # ### Prize Jacker: ARTURO TANNER ([phone]) [facility] ([address] BASIC METABOLIC PANEL Collected: 2024 6:14 AM Status: F Source: [facility] TYPE CODE TESTS RESULT OUT OF RANGE REFERENCE UNITS LAB [id number] SODIUM 140 136-145 mmol/L LAB [id number] POTASSIUM 4.0 3.5-5.1 mmol/L Result Comment: Plasma potas sium values may be up to 0.5 mmol/L lower than serum values. LAB 9551406 CHLORIDE 107 98-107 mmol/L LAB 2310186 CARBON DIOXIDE 26 23-31 mmol/L LAB 2876439 UREA NITROGEN 9 9-23 mg/dL LAB [id number] CREATININE 0.57 0.57-1.11 mg/dL LAB 9063353 GLUCOSE 111 82-115 mg/dL LAB 7230605 CALCIUM 8.4 Low 8.8-10.0 mg/dL LAB [id number] ANION GAP (VALLE, CALCULATED) 7 3-13 mmol/L LAB 7125341 GLOMERULAR FILTRATION RATE ML/MIN/1.73 SQ M.PREDICTED >90.0 >60.0 mL/min/1. 73m*2 Result Comment: Calculation based on the Chronic Kidney Disease Epidemiology Collaboration (CKD-EPI) equation refit without adjustment for race Performed By: #### LAB15 ### # Prize Jacker: ARTURO TANNER ([id number]) [facility] ([facility]) [address] [place] [address] PROGRESS NOTE Observed: 07/08/2024 6:04 AM Status: COMPLETED Source: [facility] Attestation signed by Carlin Stinson MD at 08/20/2024 9:32 PM (Updated) ATTENDING ADDENDUM Active Diagnoses/Problems this Admission: Patient Active Problem List Diagnosis SDH (subdural hematoma) (HCC) Intracranial hemorrhage (HCC) Infected bone flap, initial encounter (HCC) Intracranial bleed (HCC) I personally supervised the resident physician in the evaluation and development of a treatment plan for this patient on the same day of service as above. I personally discussed the review of systems and interviewed the patient along with performing a physical examination. I reviewed the recent events, imaging, labs, vital signs. In addition, I discussed the patient's condition and treatment options with him/her when possible. I have also reviewed and agree with the past medical, family, and social history unless otherwise noted. All of the patient's questions were answered and family updated when appropriate and possible. A complete review of systems was obtained and is negative except as stated in HPI and/or Subjective Section. 74F s/p recent L craniectomy for SSI 06/27, returns w/ worsening headache, found to have new L SDH PLAN: - I evaluated pt on 07/08/24 - NSGY following: rCTH this AM shows stable small left sided hygroma, no surgical intervention per NSGY, fu in 1-2 wks - multimodal pain control, home baclofen - goal SBP< 150 mmHg - PRN Labetalol and Hydralazine - reg diet, bowel regiment, home PPI - prior bone flap infection - ID following, PICC in place, cont vancomycin (08/08/24) - hold DVT prophylaxis, SCDs only - PT/OT Dispo: ok for floor transfer Level of Medical Decision Making: [x]High []Moderate []Low Complexity: Acute or chronic illness posing a threat to life (HIGH) Risk: Parental controlled substances (HIGH) Requires close neuro-critical care monitoring due to risk of neurological deterioration (HIGH) Prescription drug management (MOD) Personally Reviewed/Independently interpreted patient's: [x]Epic notes [x]Radiology studies [x]Labs []EKG []Ordering tests []Other Discussed/ With: [x]Patient/Family []RN []Consultants [x]Primary []SW/TCC []Other I spent total time of 50 minutes reviewing previous notes, test results, and face to face with Carla Sanchez discussing the diagnosis and importance of compliance with the treatment plan as well as documenting on the day of the visit. Time was spent, Reviewing medical record including recent tests and results Ordering prescription medications/tests and procedures Communicating results to the patient/family/caregiver Counseling/educating the patient/family/caregiver Documenting clinical information the patient's electronic record Coordination of care for the patient Performing a medical appropriate exam and evaluation Carlin Stinson MD, FACS Trauma, Surgical Critical Care, & General Surgery Division of Trauma Department of Surgery [facility] Daily SICU Progress Note Resident 07/08/2024 6:04 AM Admit Date: 07/06/2024 Carla Sanchez is a 74 y.o. female with significant past medical history of exposed hardware L craniotomy on 06/27 for removal infected bone flap and eposed hardwar, fibromyalgia on baclofen, GERD, UTI, IZZY, duodenal ulcer, also R craniotomy in 2021 for subdural hematoma with MMA embilization who presented on 07/06 as transfer from [place] with chief complaint of headache and vomiting. ICU was consulted for management of intracranial hemorrhage Patient states she was in her normal state of health until 2 days ago when she started experiencing headaches and that she vomited today. She was transferred from her transitional care unit to the emergency department at [facility] where workup there with CT head showed new foci of likely intracranial hemorrhage at the surgical bed with slight increase of midline shift from prior 3mm to 5 mm. This morning she states she has a mild headache, located primarily at the front of the left side of her forehead in the area of her surgical incision, not at the intensity of what her headache was when she was admitted. She denies nausea, vision changes, paresthesias, numbness, or other new neurologic symptoms. PROCEDURES: N/A INCIDENTAL FINDINGS: N/A CHIEF COMPLAINT: Headache, vomiting PREVIOUS 24 HOUR EVENTS: Acute Events: No acute events overnight per Night Resident Vitals: Afebrile, BP 77-126/43-100, HR 73-83, RR 9-20, SpO2 95-100% on RA Labs: Chemistries: Hypocalcemia (8.4), iCal ordered CBC: Hb 10.9/Hematocrit 33.9, slightly decreased Hb from yesterday Imaging: CT Head 07/08/24: exam limited by motion, streak artifact; persistent subdural fluid collections on the left, increased density of left posterior parietal subdural collection, suggesting element of bleeding; hyperdense right subdural fluid collection; persistent mass effect, midline shift toward right, 11mm I/O: 07/07/2024: +2,560 daily net input, no output Consults: IP CONSULT TO NEUROSURGERY IP CONSULT TO INFECTIOUS DISEASES PHARMACY TO DOSE VANCO IP WOUND CARE NURSE CONSULT TO EVAL IP CONSULT TO GERIATRICS MEDICATIONS: Current Facility-Administered Medications: acetaminophen (Tylenol) tablet 1,000 mg, 1,000 mg, Oral, q6h PRN, Carlin Sanchez MD, 1,000 mg at 07/08/24 0015 baclofen (Lioresal) tablet 10 mg, 10 mg, Oral, BID PRN, Carlin Sanchez MD, 10 mg at 07/06/24 224 chlorhexidine (Hibiclens) 4 % solution, , Topical, Daily, Carlni Sanchez MD hydrALAZINE (Apresoline) injection 10 mg, 10 mg, IntraVENous, q1h PRN, Carlin Sanchez MD labetalol (Normodyne,Trandate) injection 10 mg, 10 mg, IntraVENous, q1h PRN, Carlin Sanchez MD mupirocin (Bactroban) 2 % ointment 1 Application, 1 Application, Nasal, BID, Carlin Sanchez MD, 1 Application at 07/07/242109 naloxone (Narcan) injection 0.4 mg, 0.4 mg, IntraVENous, q5 min PRN, Carlin Sanchez MD ondansetron ODT (Zofran-ODT) disintegrating tablet 4 mg, 4 mg, Oral, q8h PRN OR ondansetron (Zofran) injection 4 mg, 4 mg, IntraVENous, q6h PRN, Carlin Sanchez MD oxyCODONE (Roxicodone) immediate release tablet 2.5 mg, 2.5 mg, Oral, q4h PRN OR oxyCODONE (Roxicodone) immediate release tablet 5 mg, 5 mg, Oral, q4h PRN, Carlin Sanchez MD, 5 mg at 07/08/24 0218 pantoprazole (ProtoNix) EC tablet 40 mg, 40 mg, Oral, Daily, Carlin Sanchez MD, 40 mg at 07/07/24 0801 polyethylene glycol (PEG) 3350 (Miralax) packet 17 g, 17 g, Oral, Daily PRN, Carlin Sanchez MD sennosides (Senokot) tablet 8.6 mg, 1 tablet, Oral, BID, Jorge Alberto Smyth MD, 8.6 mg at 07/07/24 2100 sodium chloride 0.9 % infusion, 75 mL/hr, IntraVENous, Continuous, Carlin Sanchez MD, Last Rate: 75 mL/hr at 07/07/24 0000, 75 mL/hr at 07/07/24 0000 sodium chloride 0.9% (NS) flush 10 mL, 10 mL, IntraCATHeter, q12h, Carlin Sanchez MD, 10 mL at 07/07/24 2200 sodium chloride 0.9% (NS) flush 10 mL, 10 mL, IntraCATHeter, PRN, Carlin Sanchez MD sodium chloride 0.9% (NS) flush 30 mL, 30 mL, IntraVENous, q6h, Carlin Sanchez MD, 30 mL at 07/07/24 0730 sodium chloride 0.9% (NS) flush 30 mL, 30 mL, IntraVENous, PRN, Carlin Sanchez MD sodium chloride 0.9% (NS) flush 30 mL, 30 mL, IntraVENous, PRN, Carlin Sanchez MD vancomycin IVPB 1000 mg in 200 mL NS (premix), 1,000 mg, IntraVENous, q12h, Carlin Sanchez MD, Stopped at 07/07/24 2240 ARE THERE PERTINENT UPDATES TO PAST,FAMILY, OR SOCIAL HISTORY?: No Subjective: ROS: Negative unless otherwise stated in HPI Objective: Patient Vitals for the past 24 hrs: BP Temp Temp src Pulse Resp SpO2 07/08/24 0400 97/69 -- -- 72 19 96 % 07/08/24 0303 -- -- -- 79 18 95 % 07/08/24 0300 110/67 -- -- 73 19 95 % 07/08/24 0200 118/85 -- -- 75 19 98 % 07/08/24 0100 119/100 -- -- 83 13 96 % 07/08/24 0000 117/74 36 ?C (96.8 ?F) Temporal 81 15 95 % 07/07/24 2300 109/62 -- -- 74 20 94 % 07/07/24 2200 105/59 -- -- 79 16 97 % 07/07/24 2107 102/58 -- -- 81 15 95 % 07/07/24 2000 104/62 36.5 ?C (97.7 ?F) Temporal 79 19 98 % 07/07/24 1900 (!) 107/43 -- -- 77 16 95 % 07/07/24 1800 126/55 -- -- 83 20 97 % 07/07/24 1700 (!) 79/67 -- -- 82 20 95 % 07/07/24 1600 (!) 124/102 36.7 ?C (98 ?F) Temporal 83 16 96 % 07/07/24 1500 (!) 114/44 -- -- 84 17 96 % 07/07/24 1400 121/99 -- -- 83 18 99 % 07/07/24 1300 109/76 -- -- 76 16 97 % 07/07/24 1200 (!) 84/68 36.7 ?C (98.1 ?F) Temporal 86 15 100 % 07/07/24 1109 100/67 -- -- 75 14 95 % 07/07/24 1100 (!) 77/56 -- -- 81 14 98 % 07/07/24 1000 96/57 -- -- 83 15 97 % 07/07/24 0900 101/55 -- -- 74 16 92 % 07/07/24 0800 102/54 37 ?C (98.6 ?F) Temporal 79 16 96 % 07/07/24 0700 103/50 -- -- 91 24 99 % Intake/Output Summary (Last 24 hours) at 07/08/2024 0604 Last data filed at 07/07/2024 1800 Gross per 24 hour Intake 1630 ml Output -- Net 1630 ml No intake/output data recorded. Last BM: Yesterday, per patient Diet: Easy to chew adult PHYSICAL: Physical Exam Constitutional: Comments: Chronically ill appearing elderly female, in no acute distress, relays mild headache related pain HENT: Head: Comments: Left craniotomy appreciated, head shaven Mouth/Throat: Mouth: Mucous membranes are moist. Pharynx: Oropharynx is clear. Eyes: Extraocular Movements: Extraocular movements intact. Pupils: Pupils are equal, round, and reactive to light. Cardiovascular: Rate and Rhythm: Normal rate and regular rhythm. Pulses: Normal pulses. Heart sounds: Normal heart sounds. No murmur heard. No friction rub. No gallop. Pulmonary: Effort: Pulmonary effort is normal. Breath sounds: Normal breath sounds. No wheezing, rhonchi or rales. Abdominal: General: Abdomen is flat. Bowel sounds are normal. Palpations: Abdomen is soft. Tenderness: There is no abdominal tenderness. There is no guarding or rebound. Musculoskeletal: General: No swelling or tenderness. Normal range of motion. Cervical back: Normal range of motion and neck supple. Skin: General: Skin is warm and dry. Capillary Refill: Capillary refill takes less than 2 seconds. Comments: Sutures appreciated in left sided craniotomy site, no active bleeding, no erythema or purulence appreciated Neurological: General: No focal deficit present. Mental Status: She is alert and oriented to person, place, and time. Sutures or yao? Yes O2: 96% Data Review Data CBC with Differential: Lab Results Component Value Date WBC 6.9 07/07/2024 RBC 3.66 (L) 07/07/2024 HGB 11.1 (L) 07/07/2024 HCT 33.7 (L) 07/07/2024 PLT 151 07/07/2024 CMP: Lab Results Component Value Date NA 140 07/07/2024 K 4.1 07/07/2024 CL 109 (H) 07/07/2024 CO2 26 07/07/2024 BUN 12 07/07/2024 CREATININE 0.60 07/07/2024 GLUCOSE 110 07/07/2024 CALCIUM 8.2 (L) 07/07/2024 BMP: Hepatic Function Panel:Ionized Calcium: No components found for: IONCA Magnesium: No results found for: MG Phosphorus: No results found for: PHOS PT/INR: Lab Results Component Value Date PROTIME 14.0 (H) 07/07/2024 INR 1.3 (H) 07/07/2024 PTT: Lab Results Component Value Date APTT 25.6 07/07/2024 [APTT Last 3 Troponin: No results found for: TROPONINI Urine Culture: No components found for: CURINE Blood Culture: No components found for: CBLOOD, CFUNGUSBL Blood Culture from Central Line: No components found for: CBLOODLN Stool Culture: No components found for: CSTOOL Sputum Culture: No components found for: CSPUTUM Sputum Culture for AFB: No components found for: CAFBSM Wound Culture: NA Radiology: POCT glucose meter Result Date: 07/07/2024 Performed by: [facility], [address] [place] [address] CLIA ID: [id number] CT head wo IV contrast Result Date: 07/07/2024 Patient Name: CARLA SANCHEZ : 1950 Exam Date/Time: 07/07/2024 12:10 Procedure: CT HEAD WO IV CONTRAST Ordering Provider: SMYTH ALEKSANDAR Reason For Exam: Subarachnoid hemorrhage (SAH) EXAMINATION: CT HEAD WO IV CONTRAST HISTORY: Subarachnoid hemorrhage (SAH) - - - - - [id number] - - - - TECHNIQUE: CT head without contrast. Dose reduction was employed with automated exposure control. COMPARISON: CT of the head dated July 07, 2024 and June 28, 2024 RESULT: Left frontoparietotemporal craniectomy defect is again noted. The underlying parenchyma extends into the craniectomy defect. High attenuation fluid is noted within the posterior margin of the craniectomy defect similar to previous exam. Extra-axial fluid collection is noted overlying the left middle frontal gyrus measuring approximately 1.4 x 4.0 cm. There is also low attenuation extra-axial fluid collection overlying the left temporal lobe measuring approximately 0.7 cm in maximal thickness, similar to exam from earlier today, though new compared to previous exam from June 28, 2024. There is left to right midline shift again noted approximately 7 mm at the level of the third ventricle. Postsurgical changes from right frontal craniotomy are also noted. Acute change: No evidence of an acute infarct. Chronic change: None apparent. Parenchyma: There is no significant volume loss. The brain parenchyma is otherwise within normal limits for age. Ventricles: Normal caliber and morphology. Other: Atherosclerotic calcifications are noted of the carotid siphons Health Worker (topogram) images: No additional findings. There is low attenuation subdural extra-axial fluid in the left middle cranial fossa overlying the left temporal lobe as well as at the left frontal convexity overlying the left superior and middle frontal gyri. There is associated left to right midline shift approximately 7 mm. Findings similar to previous CT of the head obtained earlier today. Report Dictated on Electronically Signed By: Julián Feliciano MD Electronically Signed Date/Time: 07/07/2024 12:[address] head wo IV contrast Result Date: 07/07/2024 Patient Name: CARLA SANCHEZ : 1950 Exam Date/Time: 07/07/2024 04:53 Procedure: CT HEAD WO IV CONTRAST Ordering Provider: SMYTH ALEKSANDAR Reason For Exam: Intracranial hemorrhage at prior L craniotomy site on outside scan, repeat CT head for stability Indication: Left craniotomy Comparison date: 06/28/2019 10/05/2024 FINDINGS: Dose reduction was employed with automated exposure control.3 mm unenhanced imaging of the brain performed. Images viewed in multiple orthogonal planes. Status post left craniotomy. EXAMINATION LIMITED BY MOTION, STREAK ARTIFACT. Interval low-density left subdural fluid collection, 6 mm in thickness. Left posterior acute subdural hematoma 6 mm. Parafalcine acute appearing subdural posteriorly. Acute blood along the tentorium. Midline shift to the right, 8 mm, increased. No definite acute infarct seen. Orbits within normal limits, limited lack of contrast. Review of the paranasal sinuses shows no air-fluid levels. New subdural hematoma. Midline shift, increased compared to prior. CTR Dr. Barcenas Report Dictated on Electronically Signed By: Manuel Medel MD Electronically Signed Date/Time: 07/07/2024 5:20 AM EST XR chest 1 view Result Date: 07/06/2024 Patient Name: CARLA SANCHEZ : 1950 Exam Date/Time: 07/06/2024 21:18 Procedure: XR CHEST 1 VIEW Ordering Provider: SMYTH ALEKSANDAR Reason For Exam: Evaluate picc line INDICATION: Evaluate PICC line placement. VIEWS: Chest portable-one image COMPARISON: 07/02/2024 FINDINGS: A left PICC line is present with tip overlying the caval atrial junction. The trachea is midline. The heart is not enlarged. The lung volumes are low. The costophrenic angles are sharp. Left PICC line. Report Dictated on Electronically Signed By: Saira House MD Electronically Signed Date/Time: 07/06/2024 11:10 PM EST Patient Active Problem List Diagnosis SDH (subdural hematoma) (HCC) Intracranial hemorrhage (HCC) Infected bone flap, initial encounter (HCC) Intracranial bleed (HCC) ASSESSMENT: 74 year old female with recent L craniotomy for removal of infected hardware who presents with concern for intracranial hemorrhage PLAN: Neuro/Spine: Neuro / Spine #Recent L craniotomy with removal of infected hardware and ?new ICH - Appreciate nsg recs: no surgical intervention. Repeat CT head in AM - Pain control: tylenol prn, prn oxycodone - Elevate HOB 30 degrees #Fibromyalgia -Continue home baclofen 10mg BID prn - per NSGY: surgical intervention not recommended, solution to replace bone flap when safe from an infection standpoint, patient safe for transfer with outpatient NSGY follow up in 1-[address] HEENT: - No acute concerns Cardiovascular: -Cardiovascular - Hemodynamically stable with a few low systolic pressure measurements overnight, grossly MAPs have been >65 - Labetalol/hydralazine prn - Telemetry Pulmonary: - Standard O2 protocol - IS FEN/GI: - Regular diet - Zofran PRN - Daily BMP, CBC, Mg, Phos : - Estimated Creatinine Clearance: 89.6 mL/min (by C-G formula based on SCr of 0.6 mg/dL). #GERD - Continue home protonix - No acute issues - Monitor I/Os - Goal UOP > 0.5 ml/kg/hr Heme: - Hgb: - Hgb stable - No transfusions indicated ID: -[x] MRSA Decolonization ordered - ppx bactroban nares #Infected craniotomy -PICC in place, appreciate ID recommendations -Continue vancomycin, pharmacy to dose Endo: - No acute concerns Lines/Devices: - PIV - Left PICC line Prophylaxis: DVT: None Has DVT PPX been started? No If no, why? Plan for OR today GI: Home protonix Pressure Ulcer: Continue to monitor Musculoskeletal: - PT/OT - Bedrest - all extremities AT Is the patient in restraints?: No Disposition: T2 SICU stable for floor status, [facility] Hospitalist accepted for transfer HEAD WO IV CONTRAST Observed: 5:20 AM Status: F Source: [facility] Patient Name: CARLA SANCHEZ : 1950 Exam Date/Time: 07/08/2024 04:42 Procedure: CT HEAD WO IV CONTRAST Ordering Provider: GUSTAFSON KRISTI Reason For Exam: Subdural hematoma --------ADDENDUM #1 -------- CTR Dr. Barcenas. Report Dictated on Electronically Signed By: Manuel Medel MD Electronically Signed Date/Time: 07/08/2024 5:20 AM EST --------ORIGINAL REPORT -------- Indication: Subdural hematoma Comparison date: 07/07/2024 FINDINGS: Dose reduction was employed with automated exposure control.3 mm unenhanced imaging of the brain performed. Images viewed in multiple orthogonal planes. EXAMINATION LIMITED BY MOTION, STREAK ARTIFACT. There are persistent subdural fluid collections on the left. Increasing density of left posterior parietal subdural collection, 4.3 mm thickness, suggesting an element of acute bleeding. Additionally a very small hyperdense right subdural fluid collection is seen, perhaps 2 mm. Persistent mass effect. Persistent midline shift toward the right slightly increased, approximately 11 mm. Bony structures:Left craniotomy. Orbits within normal limits, limited lack of contrast. Review of the paranasal sinuses shows no air-fluid levels. IMPRESSION: Acute on chronic subdural bleeding. Mildly increasing midline shift toward the right. See above. Report Dictated on Electronically Signed By: Manuel Medel MD Electronically Signed Date/Time: 07/08/2024 5:17 AM EST Patient Name: CARLA SANCHEZ : 1950 Exam Date/Time: 07/08/2024 04:42 Procedure: CT HEAD WO IV CONTRAST Ordering Provider: GUSTAFSON KRISTI Reason For Exam: Subdural hematoma Indication: Subdural hematoma Comparison date: 07/07/2024 FINDINGS: Dose reduction was employed with automated exposure control.3 mm unenhanced imaging of the brain performed. Images viewed in multiple orthogonal planes. EXAMINATION LIMITED BY MOTION, STREAK ARTIFACT. There are persistent subdural fluid collections on the left. Increasing density of left posterior parietal subdural collection, 4.3 mm thickness, suggesting an element of acute bleeding. Additionally a very small hyperdense right subdural fluid collection is seen, perhaps 2 mm. Persistent mass effect. Persistent midline shift toward the right slightly increased, approximately 11 mm. Bony structures:Left craniotomy. Orbits within normal limits, limited lack of contrast. Review of the paranasal sinuses shows no air-fluid levels. IMPRESSION: Acute on chronic subdural bleeding. Mildly increasing midline shift toward the right. See above. Report Dictated on Electronically Signed By: Manuel Medel MD Electronically Signed Date/Time: 07/08/2024 5:17 AM EST Subdural hematoma CONSULT Observed: 07/07/2024 2:55 PM Status: COMPLETED Source: [facility] Geriatric Medicine Inpatient Consult Service Admission Date: 07/06/2024 Admission Status: INPATIENT Reason for Appointment No chief complaint on file. Geriatrics consulted for geriatric patient, subdural hematoma Assessment Principal Problem: Intracranial bleed (HCC) Plan During this encounter, I spent 75 minutes -Reviewing previous notes, -Reviewing labs, -Coordination of care for the patient, and -Performing a medically appropriate exam and/or evaluation. 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 Sanchez is adamant that she did not have any falls preceding this admission. -Neurosurgery consulted and following. -Plan for repeat CT head tomorrow. -ID consulted. On Vancomycin. No skilled rehab needed per PT evaluation on last admission. Discharged to [facility] for IV antibiotic management. History of Seizure -Per chart review and discussion with Mrs. Sanchez, she had a seizure associated with her subdural hematoma in 2014. States that she took herself off of her seizures medications eventually and has not been on anything for seizures. She did not report any additional seizure events. At risk for delirium Predisposing factors for this patient include:prior history of delirium, advanced age, pain Precipitating factors for this patient include:infection -Delirium protocol - Continue evidence-based nonpharmacologic interventions for prevention and treatment of delirium: - redirect/reorient/reassure frequently - avoid restraints and instead utilize sitter as needed for safety - early mobilization as medically appropriate, OOB for meals as able - have patient use glasses and hearing aides - use familiar objects (family photos and items from home) - sleep hygiene, limit nighttime care to promote sleep/wake cycle - hydrate and encourage PO intake when medically appropriate - minimize/camouflage lines and tethers as able - minimize narcotics as long as pain is adequately controlled - avoid benzos and anticholinergic medications -Avoid antipsychotics unless patient is a danger to themselves or others. -Encourage PO intake, time up in chair, family visits, supervised ambulation, and sleep hygiene -If agitated, assess for and consider treating for pain -QTc= 481 06/24/24 -Monitor for constipation/urinary retention - last BM today If she requires operative intervention, geriatric medicine will continue to follow. If she does not require operative intervention, our team will sign off. Thank you for allowing us to participate in her care. Subjective: HPI 74 y.o. year-old female presented from retirement facility for headache, nausea and vomiting. History of Craniotomy due to subdural hematoma 08/2014 per care everywhere. Known to Dr. Sow who performed a right craniotomy for subdural hematoma on 09/09/2021. Presented to Dr. Sow in April 2024 due to exposed hardware from previous surgery. Seen again outpatient by Dr. Sow where plan was made to remove hardware from left craniotomy due to presumed infection in the setting of hardware exposure. S/p removal of exposed hardware and infected bone flap on 06/27. Discharged on 07/03 to [facility]. 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 Placed on vancomycin with a stop date of 08/08/24. She presented to the ED in [place] on 07/06/24 with worsening headache, nausea and vomiting for 2 days prior to admission. CT head showed new subdural hematoma with increased midline shift when compared to prior CT head. Neurosurgery consulted. Plan for repeat CT head today (Findings noted to similar to previous CT of head.) Per neurosurgery, no acute neurosurgical intervention at this time. Plan for repeat CT head tomorrow. Mrs. Sanchez will be NPO at midnight in the event that neurosurgical intervention is needed based on results of CT of head that is obtained tomorrow. Collateral history obtained from NA. Mrs. Sanchez reports that she is having sharp pain when she moves her head quickly. Denies any dizziness. She is oriented to person, place, date, and situation. Able to clearly tell me that she is here due to having headaches and nausea while at [facility]. Knows that she is there for her IV antibiotics. Tells me that the total course of antibiotics will be 6 weeks. She is able to tell me that the current plan is to repeat her head CT tomorrow and go from there. Tells me that she was taking protonix and baclofen prior to her admission last month. Says that she does not take the baclofen every day, only when needed for fariha horses. Says that she gets them more in the summer because she is working in the yard, cutting grass and working with kramer, and she gets dehydrated. Enjoys doing this and would like to be able to get back to this in the spring. Admits that she forgets that day of the week at times because she is retired, but joking states that she always remembers . States that her only bought of her confusion following a surgery was when she had her first craniotomy in 2014. States that she was walking independently at [facility]. Quick Cognitive Screen (QCS): Nursing Delirium Screen (Nu-Desc): Allergies Allergen Reactions Ibuprofen Other Reaction(s): Other, Other (See Comments), Unknown Unable to take 2nd to risk of GI and brain bleed per pt Penicillins Rash Other Reaction(s): Unknown; tolerates cefazolin from 09/2021 brain surgery Prednisone Rash Other Reaction(s): Unknown Medications reviewed in hospital records. Past Medical History: Diagnosis Date Anemia Arthritis Brain bleed (HCC) 2013, 2021 Diverticulitis Gastric ulcer Leg fracture, right Right arm fracture Seizures ([facility]) 2013 with first craniotomy- while in hospital- none since Thoracic spine fracture ([facility]) Past Surgical History: Procedure Laterality Date ABDOMINAL SURGERY 07/2021 on stomach CHOLECYSTECTOMY COLONOSCOPY CRANIOTOMY Left 2013 DILATION AND CURETTAGE OF UTERUS HAND SURGERY Right fracture repiair SMALL INTESTINE SURGERY small part removed UPPER GASTROINTESTINAL ENDOSCOPY Social History Tobacco Use Smoking status: Former Current packs/day: 0.00 Types: Cigarettes Quit date: 10/27/2019 Years since quittin.6 Smokeless tobacco: Never Substance Use Topics Alcohol use: Yes Alcohol/week: 1.0 standard drink of alcohol Types: 1 Standard drinks or equivalent per week Comment: rare-holidays or special occ Present at visit: patient Marital status: Children: one daughter Living arrangement: lives alone but has good neighbors and her sister stops in to see her a few times a week. Household safety problems: Denies any falls Driving safety concerns: No Elder abuse: Feels safe at home Community resources: .no Healthcare Power of Correctional Therapy Teacher: yes, daughter Living Will: Yes. Code Status: Full Code Family History Family History Problem Relation Name Age of Onset Breast cancer Mother Heart disease Father Family Status Relation Name Status Mother Father No partnership data on file Review of Systems HENT: Negative for hearing loss. Eyes: Negative for double vision. Gastrointestinal: Negative for constipation. Neurological: Positive for headaches. Negative for dizziness. Psychiatric/Behavioral: Negative for altered mental status and depression. Functional Status Prior to Admission (I: Independent, A: Assisted, D: Dependent) ADLs I A D Notes Bathing [x] [] [] Dressing [x] [] [] Toileting [x] [] [] Transfers [x] [] [] Feeding [x] [] [] Ambulation [x] [] [] Assistive devices: none IADLs I A D Telephone [x] [] [] Transportation [x] [] [] Shopping [x] [] [] Meal prep [x] [] [] Housework [x] [] [] Medications [x] [] [] Finances [x] [] [] Objective: BP 109/76 Pulse 76 Temp 36.7 ?C (98.1 ?F) (Temporal) Resp 16 SpO2 97% Physical Exam Constitutional: General: She is not in acute distress. HENT: Head: Comments: Left sided skull depression at site of previous surgery. Bradshaw in place at surgical incision. Mouth/Throat: Dentition: Has dentures (top only. Has her own teeth on the bottom.). Cardiovascular: Rate and Rhythm: Normal rate. Pulses: Radial pulses are 2+ on the right side and 2+ on the left side. Pulmonary: Effort: Pulmonary effort is normal. No respiratory distress. Abdominal: General: Bowel sounds are normal. Palpations: Abdomen is soft. Musculoskeletal: Right lower leg: No edema. Left lower leg: No edema. Skin: General: Skin is warm and dry. Findings: Bruising present. Neurological: Mental Status: She is alert and oriented to person, place, and time. Psychiatric: Mood and Affect: Mood normal. Behavior: Behavior normal. Thought Content: Thought content normal. Judgment: Judgment normal. 3 item recall/short term memory: Not assessed Clock Drawing Test: Not assessed Labs and Imaging: Lab Results Component Value Date WBC 6.9 07/07/2024 HGB 11.1 (L) 07/07/2024 HCT 33.7 (L) 07/07/2024 MCV 92.1 07/07/2024 PLT 151 07/07/2024 Lab Results Component Value Date NA 140 07/07/2024 K 4.1 07/07/2024 CL 109 (H) 07/07/2024 CO2 26 07/07/2024 BUN 12 07/07/2024 CREATININE 0.60 07/07/2024 GLUCOSE 110 07/07/2024 CALCIUM 8.2 (L) 07/07/2024 PROT 7.1 06/23/2024 BILITOT 1.2 (H) 06/23/2024 ALKPHOS 77 06/23/2024 AST 65 (H) 06/23/2024 ALT 57 (H) 06/23/2024 No results found for: VITD25, TSH UA: No results found for: APPEARANCE, COLORU, LABSPEC, LABPH, URINE, GLUCOSEU, UROBILINOGEN, BILIRUBINUR, OCBU Comment: Please note that portions of this report were produced using speech recognition software and may contain errors related to that system including errors in grammar, punctuation, and spelling, as well as words and phrases that may be inappropriate. If there are any questions or concerns please feel free to contact the dictating provider for clarification. [id number] Observed: 07/07/2024 2:00 PM Status: COMPLETED [facility] Reviewed chart. Patient is f [facility] a facility. No 30 day Readmission required. HEAD WO IV CONTRAST Observed: 025 12:42 PM Status: F Source: [facility] Patient Name: CARLA SANCHEZ : 1950 [facility]#: [id number] Exam Date/Time: 07/07/2024 12:10 Procedure: CT HEAD WO IV CONTRAST Ordering Provider: SMYTH ALEKSANDAR Reason For Exam: Subarachnoid hemorrhage (SAH) EXAMINATION: CT HEAD WO IV CONTRAST HISTORY: Subarachnoid hemorrhage (SAH) - - - - - [id number] - - - - TECHNIQUE: CT head without contrast. Dose reduction was employed with automated exposure control. COMPARISON: CT of the head dated July 07, 2024 and June 28, 2024 RESULT: Left frontoparietotemporal craniectomy defect is again noted. The underlying parenchyma extends into the craniectomy defect. High attenuation fluid is noted within the posterior margin of the craniectomy defect similar to previous exam. Extra-axial fluid collection is noted overlying the left middle frontal gyrus measuring approximately 1.4 x 4.0 cm. There is also low attenuation extra-axial fluid collection overlying the left temporal lobe measuring approximately 0.7 cm in maximal thickness, similar to exam from earlier today, though new compared to previous exam from June 28, 2024. There is left to right midline shift again noted approximately 7 mm at the level of the third ventricle. Postsurgical changes from right frontal craniotomy are also noted. Acute change: No evidence of an acute infarct. Chronic change: None apparent. Parenchyma: There is no significant volume loss. The brain parenchyma is otherwise within normal limits for age. Ventricles: Normal caliber and morphology. Other: Atherosclerotic calcifications are noted of the carotid siphons Health Worker (topogram) images: No additional findings. IMPRESSION: There is low attenuation subdural extra-axial fluid in the left middle cranial fossa overlying the left temporal lobe as well as at the left frontal convexity overlying the left superior and middle frontal gyri. There is associated left to right midline shift approximately 7 mm. Findings similar to previous CT of the head obtained earlier today. Report Dictated on Electronically Signed By: Julián Feliciano MD Electronically Signed Date/Time: 07/07/2024 12:42 PM EST CONSULT Observed: 07/07/2024 11:26 AM Status: COMPLETED Source: [facility] - Infectious Diseases Attending Consult Note Reason for Consult: IV abx History of Present Illness: 74 y/o F known to our service with hx of cholangitis. E coli/ C perfringens BSI managed through [facility] in 10/2023 (cipro/flagyl) with PTHC and ultimately internal biliary stent, hx ESBL Klebsiella BSI/ cholangitis (ertapenem 08/2023), hx Ortega-en-Y gastric bypass (2021), hx SDH remotely (2013 or 2014) with previous craniotomy--> developed an acute SDH in 09/2021 requiring joanie hole drainage by Dr. Barcenas along with MMA embolization. She presented to Neurosurgery outpatient in 04/2024 with an area of the L forehead with exposed metal with bleeding. A CT was ordered given it was not in the region of the 2021 procedures. It showed craniotomy flaps on the right and left; + hardware for the L craniotomy flap appears very close to the level of skin. She underwent L craniectomy of all hardware and bone flap on 06/[address] Barcenas. The underside of the scalp had purulent material that was cultured. Epidural space, bur hole, and bone flap were all sent for cx--> all grew MRSA. Blood cx were sterile (after abx were given). She had PICC placement and was planned for 6 weeks of IV vancomycin through 08/08/24. She was readmitted for post-operative headache and emesis with imaging showing new L SDH. She was being monitored in ICU. Past Medical History: Past Medical History: Diagnosis Date Anemia Arthritis Brain bleed (HCC) 2013, 2021 Diverticulitis Gastric ulcer Leg fracture, right Right arm fracture Seizures (HCC) 2013 with first craniotomy- while in hospital- none since Thoracic spine fracture (HCC) Past Surgical History: Past Surgical History: Procedure Laterality Date ABDOMINAL SURGERY 07/2021 on stomach CHOLECYSTECTOMY COLONOSCOPY CRANIOTOMY Left 2013 DILATION AND CURETTAGE OF UTERUS HAND SURGERY Right fracture repiair SMALL INTESTINE SURGERY small part removed UPPER GASTROINTESTINAL ENDOSCOPY Current Medications: Current Facility-Administered Medications Medication Dose Route Frequency Provider Last Rate Last Admin acetaminophen (Tylenol) tablet 1,000 mg 1,000 mg Oral q6h PRN Carlin Sanchez MD 1,000 mg at 07/07/24 0235 baclofen (Lioresal) tablet 10 mg 10 mg Oral BID PRN Carlin Sanchez MD 10 mg at 07/06/24 2242 chlorhexidine (Hibiclens) 4 % solution Topical Daily Carlin Sanchez MD hydrALAZINE (Apresoline) injection 10 mg 10 mg IntraVENous q1h PRN Carlin Sanchez MD labetalol (Normodyne,Trandate) injection 10 mg 10 mg IntraVENous q1h PRN Carlin Sanchez MD mupirocin (Bactroban) 2 % ointment 1 Application 1 Application Nasal BID Carlin Sanchez MD 1 Application at 07/07/24 0801 naloxone (Narcan) injection 0.4 mg 0.4 mg IntraVENous q5 min PRN Carlin Sanchez MD ondansetron ODT (Zofran-ODT) disintegrating tablet 4 mg 4 mg Oral q8h PRN Carlin Sanchez MD Or ondansetron (Zofran) injection 4 mg 4 mg IntraVENous q6h PRN Carlin Sanchez MD oxyCODONE (Roxicodone) immediate release tablet 2.5 mg 2.5 mg Oral q4h PRN Carlin Sanchez MD Or oxyCODONE (Roxicodone) immediate release tablet 5 mg 5 mg Oral q4h PRN Carlin Sanchez MD pantoprazole (ProtoNix) EC tablet 40 mg 40 mg Oral Daily Carlin Sanchez MD 40 mg at 07/07/24 0801 polyethylene glycol (PEG) 3350 (Miralax) packet 17 g 17 g Oral Daily PRN Carlin Sanchez MD sennosides (Senokot) tablet 8.6 mg 1 tablet Oral BID Jorge Alberto Smyth MD 8.6 mg at 07/07/24 0801 sodium chloride 0.9 % infusion 75 mL/hr IntraVENous Continuous Carlin Sanchez MD 75 mL/hr at 07/07/24 0000 75 mL/hr at 07/07/24 0000 sodium chloride 0.9% (NS) flush 10 mL 10 mL IntraCATHeter q12h Carlin Sanchez MD 10 mL at 07/07/24 0930 sodium chloride 0.9% (NS) flush 10 mL 10 mL IntraCATHeter PRN Carlin Sanchez MD sodium chloride 0.9% (NS) flush 30 mL 30 mL IntraVENous q6h Carlin Sanchez MD 30 mL at 07/07/24 0730 sodium chloride 0.9% (NS) flush 30 mL 30 mL IntraVENous PRN Carlin Sanchez MD sodium chloride 0.9% (NS) flush 30 mL 30 mL IntraVENous PRN Carlin Sacnhez MD vancomycin IVPB 1000 mg in 200 mL NS (premix) 1,000 mg IntraVENous q12h Carlin Sanchez MD Stopped at 07/07/24 1100 Allergies: Allergies Allergen Reactions Ibuprofen Other Reaction(s): Other, Other (See Comments), Unknown Unable to take 2nd to risk of GI and brain bleed per pt Penicillins Rash Other Reaction(s): Unknown; tolerates cefazolin from 09/2021 brain surgery Prednisone Rash Other Reaction(s): Unknown Social History: Social History Socioeconomic History Marital status: Spouse name: Not on file Number of children: Not on file Years of education: Not on file Highest education level: Not on file Occupational History Not on file Tobacco Use Smoking status: Former Current packs/day: 0.00 Types: Cigarettes Quit date: 10/27/2019 Years since quittin.6 Smokeless tobacco: Never Vaping Use Vaping status: Never Used Substance and Sexual Activity Alcohol use: Yes Alcohol/week: 1.0 standard drink of alcohol Types: 1 Standard drinks or equivalent per week Comment: rare-holidays or special occ Drug use: Not Currently Sexual activity: Not on file Other Topics Concern Not on file Social History Narrative Not on file Social Drivers of Health Financial Resource Strain: Low Risk (08/12/2023) Received from [facility] Overall Financial Resource Strain (CARDIA) Difficulty of Paying Living Expenses: Not hard at all Food Insecurity: No Food Insecurity (07/03/2024) Hunger Vital Sign Worried About Running Out of Food in the Last Year: Never true Ran Out of Food in the Last Year: Never true Transportation Needs: No Transportation Needs (07/03/2024) PRAPARE - Transportation Lack of Transportation (Medical): No Lack of Transportation (Non-Medical): No Physical Activity: Not on file Stress: Not on file Social Connections: Not on file Intimate Partner Violence: Not At Risk (07/03/2024) Humiliation, Afraid, Rape, and Kick questionnaire Fear of Current or Ex-Partner: No Emotionally Abused: No Physically Abused: No Sexually Abused: No Housing Stability: Low Risk (07/03/2024) Housing Stability Vital Sign Unable to Pay for Housing in the Last Year: No Number of Times Moved in the Last Year: 0 Homeless in the Last Year: No Family History: Family History Problem Relation Name Age of Onset Breast cancer Mother Heart disease Father Review of Systems: Review of Systems Constitutional: Positive for fatigue. Negative for fever. HENT: Negative for congestion and mouth sores. Eyes: Negative for redness and visual disturbance. Respiratory: Negative for shortness of breath and wheezing. Cardiovascular: Negative for chest pain and leg swelling. Gastrointestinal: Positive for vomiting. Negative for abdominal pain and diarrhea. Genitourinary: Negative for flank pain and frequency. Musculoskeletal: Negative for arthralgias and myalgias. Skin: Positive for wound. Negative for color change. Allergic/Immunologic: Negative for immunocompromised state. Neurological: Positive for weakness and headaches. Hematological: Negative. Psychiatric/Behavioral: Negative. Vitals: Patient Vitals for the past 24 hrs: BP Temp Temp src Pulse Resp SpO2 07/07/24 1109 100/67 -- -- 75 14 95 % 07/07/24 1100 (!) 77/56 -- -- 81 14 98 % 07/07/24 1000 96/57 -- -- 83 15 97 % 07/07/24 0900 101/55 -- -- 74 16 92 % 07/07/24 0800 102/54 37 ?C (98.6 ?F) Temporal 79 16 96 % 07/07/24 0700 103/50 -- -- 91 24 99 % 07/07/24 0600 99/57 -- -- 80 17 96 % 07/07/24 0508 124/56 -- -- 89 13 98 % 07/07/24 0400 96/58 -- -- 84 21 95 % 07/07/24 0300 113/55 -- -- 82 16 97 % 07/07/24 0200 108/65 -- -- 87 19 93 % 07/07/24 0100 100/62 -- -- 87 18 93 % 07/07/24 0000 100/62 -- -- 82 21 98 % 07/06/24 2300 105/54 -- -- 99 20 94 % 07/06/24 2200 108/67 -- -- 88 22 94 % 07/06/24 2100 109/68 -- -- 90 17 96 % 07/06/24 2000 103/65 -- -- 87 18 95 % 07/06/24 1900 115/71 -- -- 87 13 95 % 07/06/24 1830 (!) 122/44 36.9 ?C (98.4 ?F) Temporal 90 17 94 % Physical Exam: Physical Exam Vitals and nursing note reviewed. Constitutional: General: She is not in acute distress. Comments: fatigued HENT: Head: Comments: Sunken deformity of craniectomy site with sutures; no drainage Right Ear: External ear normal. Left Ear: External ear normal. Nose: Nose normal. Mouth/Throat: Mouth: Mucous membranes are moist. Pharynx: Oropharynx is clear. Eyes: General: No scleral icterus. Extraocular Movements: Extraocular movements intact. Cardiovascular: Rate and Rhythm: Normal rate and regular rhythm. Pulmonary: Effort: Pulmonary effort is normal. No respiratory distress. Breath sounds: No wheezing. Abdominal: General: There is no distension. Palpations: Abdomen is soft. Tenderness: There is no abdominal tenderness. Musculoskeletal: Comments: + arthritic joint changes; no synovitis or crepitance of any limb; + PICC Skin: General: Skin is warm and dry. Coloration: Skin is not jaundiced. Findings: No rash. Neurological: Mental Status: She is alert and oriented to person, place, and time. Cranial Nerves: No cranial nerve deficit. Motor: Weakness present. Psychiatric: Mood and Affect: Mood normal. Thought Content: Thought content normal. Labs: Recent Labs 07/07/24 0420 NA 140 K 4.1 CL 109* CO2 26 BUN 12 CREATININE 0.60 GLUCOSE 110 CALCIUM 8.2* Recent Labs 07/07/24 0420 WBC 6.9 HGB 11.1* HCT 33.7* PLT 151 LYMPHOPCT 18.2 MONOPCT 9.1 BASOPCT 0.4 NEUTROABS 4.7 Micro: 06/29- blood cx- negative 06/27- brain biopsy cx- MRSA (no orgs on stain) 06/27- bone OR cx- MRSA (no orgs on stain) 06/27- other scalp OR cx- MRSA (no orgs on stain) 06/27- swab scalp cx- MRSA (no orgs on stain) 06/27- swab scalp cx- MRSA (no orgs on stain) Lines: PICC (07/03) Radiography/Echo/Other: 07/07- CT brain- There is low attenuation subdural extra-axial fluid in the left middle cranial fossa overlying the left temporal lobe as well as at the left frontal convexity overlying the left superior and middle frontal gyri. There is associated left to right midline shift approximately 7 mm. Findings similar to previous CT of the head obtained earlier today. 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 Stop date remains as 08/08/24. Will complete a new OPAT closer to discharge. PICC is in place. Total time of 55 minutes on this day of encounter spent on, but not limited to review of tests, medical records , complex history , counseling and education (patient, family member, caregiver), and independent interpretation of tests. Sayra Honeycutt MD [phone] Observed: 07/07/2024 8:27 AM Status: COMPLETED Source: [facility] Care Management Progress Not e Consults to IP CONSULT TO NEUROSURGERY IP CONSULT TO INFECTIOUS DISEASES PHARMACY TO DOSE VANCO IP WOUND CARE NURSE CONSULT TO EVAL Initial Assessment: Chart reviewed. Patient [facility] and [facility] IVABX/PICC. Patient has insurance, prescription coverage, and PCP listed on EHR. CM will follow for discharge planning. Discharge Planning/Barrier: 07/07/24 0827 Rapid Rounds Attendance Compliance Attorney Planned Discharge Disposition Other (TBD) Today we still await Administering IV medications;Clinical stability;Project Development Manager recommendations (comment) Additional Comments: PT/OT, Discharge Plan: TBD. Will continue to follow. Length of Stay (Days): 1 GMLOS: No GMLOS Documented CONSULT Observed: 07/07/2024 8:24 AM Status: COMPLETED Source: [facility] NEUROSURGERY and SPINE CONSU LT NOTE Patient Name: Carla Sanchez Patient : 1950 PCP: MARY SMITH Chief Complaint: headache History of Present Ilness: 74 y.o. female with a PMHX as listed below presents with increase in headaches. Pt had removal of infected bone flap on 06/27. She states starting Sunday, she had a nagging CROUCH which increased over the weekend. She had nausea yesterday but states she feels it was from what she ate. She remains at her neurological baseline. Past Medical History: Past Medical History: Diagnosis Date Anemia Arthritis Brain bleed ([facility]) 2013, 2021 Diverticulitis Gastric ulcer Leg fracture, right Right arm fracture Seizures ([facility]) 2013 with first craniotomy- while in hospital- none since Thoracic spine fracture ([facility]) Past Surgical History: Past Surgical History: Procedure Laterality Date ABDOMINAL SURGERY 07/2021 on stomach CHOLECYSTECTOMY COLONOSCOPY CRANIOTOMY Left 2013 DILATION AND CURETTAGE OF UTERUS HAND SURGERY Right fracture repiair SMALL INTESTINE SURGERY small part removed UPPER GASTROINTESTINAL ENDOSCOPY Home Medications: Prior to Admission medications Medication Sig Start Date End Date Taking? Authorizing Provider acetaminophen (Tylenol) 500 MG tablet Take 2 tablets (1,000 mg) by mouth every 8 hours for 5 days. 07/02/24 07/07/24 Ирина Gonzalez NP Ascorbic Acid (vitamin C) 500 MG tablet TAKE 1 TABLET BY MOUTH ONCE DAILY AT 10AM 08/30/23 Historical Provider, B Complex Vitamins (VITAMIN B COMPLEX PO) Take by mouth. Historical Provider, baclofen (Lioresal) 10 MG tablet Take 10 mg by mouth 2 times daily as needed. 02/12/24 Historical Provider, hyoscyamine (Anaspaz,Levsin) 0.125 MG tablet TAKE 1 TABLET BY MOUTH EVERY 4 HOURS NEEDED FOR STOMACH CRAMPS. Patient not taking: Reported on 06/27/2024 07/30/23 Historical Provider, Loratadine (CLARITIN PO) Take by mouth. Historical Provider, mupirocin (Bactroban) 2 % ointment Apply topically 2 times daily for 5 days. 06/30/24 07/05/24 Ирина Gonzalez NP pantoprazole (ProtoNix) 40 MG EC tablet Take 40 mg by mouth daily. Historical Provider, sennosides (Senokot) 8.6 MG tablet Take 1 tablet (8.6 mg) by mouth daily for 5 days. 07/02/24 07/07/24 Ирина Gonzalez NP TURMERIC PO Take by mouth. Historical Provider, vancomycin IVPB 1 g in 200 mL (premix) Infuse 1 g into a venous catheter every 12 hours. 07/02/24 08/08/24 Historical Provider, VITAMIN D PO Take by mouth. Historical Provider, Acetaminophen (TYLENOL PO) Take by mouth. 07/03/24 Historical Provider, Allergies: Ibuprofen, Penicillins, and Prednisone Social History: TOBACCO: reports that she quit smoking about 4 years ago. Her smoking use included cigarettes. She has never used smokeless tobacco. ETOH: reports current alcohol use of about 1.0 standard drink of alcohol per week. RECREATIONAL DRUG USE: Social History Substance and Sexual Activity Drug Use Not Currently Family History: Family History Problem Relation Name Age of Onset Breast cancer Mother Heart disease Father ROS: Mild CROUCH Physical Examination: Vitals: 07/07/24 0800 BP: 102/54 Pulse: 79 Resp: 16 Temp: 37 ?C (98.6 ?F) SpO2: 96% Physical Exam In no acute distress NEURO: A&O x3 BRENNAN Strength strong and equal pk Sensation intact Incision C/D/I with yao with no sign of infection Results Labs: Last 24hrs Recent Results (from the past 24 hours) CBC auto differential Collection Time: 07/07/24 4:20 AM Result Value Ref Range Auto WBC 6.9 3.6 - 10.7 10*3/uL RBC 3.66 (L) 3.80 - 5.20 10*6/uL Hemoglobin 11.1 (L) 11.7 - 16.0 g/dL Hematocrit 33.7 (L) 35.0 - 47.0 % MCV 92.1 77.0 - 99.0 fL MCH 30.3 26.0 - 34.0 pg MCHC 32.9 30.5 - 36.0 % RDW 14.0 11.5 - 15.0 % Platelets 151 140 - 440 10*3/uL MPV 10.1 9.0 - 12.7 fL nRBC 0.0 0.0 - 2.0 /100 WBCs Neutrophils Relative 68.2 38.0 - 82.0 % Lymphocytes Relative 18.2 15.0 - 45.0 % Monocytes Relative 9.1 5.0 - 13.0 % Eosinophils Relative 3.8 0.0 - 6.0 % Basophils Relative 0.4 0.0 - 2.0 % Immature Grans % 0.3 0.0 - 2.0 % Neutrophils Absolute 4.7 1.8 - 7.5 10*3/uL Lymphocytes Absolute 1.3 1.0 - 4.3 10*3/uL Monocytes Absolute 0.6 0.0 - 0.9 10*3/uL Eosinophils Absolute 0.3 0.0 - 0.5 10*3/uL Basophils Absolute 0.0 0.0 - 0.2 10*3/uL Immature Grans Absolute 0.0 <0.1 10*3/uL Basic metabolic panel Collection Time: 07/07/24 4:20 AM Result Value Ref Range SODIUM 140 136 - 145 mmol/L POTASSIUM 4.1 3.5 - 5.1 mmol/L CHLORIDE 109 (H) 98 - 107 mmol/L CARBON DIOXIDE 26 23 - 31 mmol/L UREA NITROGEN 12 9 - 23 mg/dL CREATININE 0.60 0.57 - 1.11 mg/dL GLUCOSE 110 82 - 115 mg/dL CALCIUM 8.2 (L) 8.8 - 10.0 mg/dL ANION GAP 5 3 - 13 mmol/L eGFR >90.0 >60.0 mL/min/1.73m*2 Vancomycin, AUC Timed Dosing Collection Time: 07/07/24 4:20 AM Result Value Ref Range VANCOMYCIN, AUC 23.3 ug/mL PROTIME/INR & PTT Collection Time: 07/07/24 5:56 AM Result Value Ref Range PROTHROMBIN TIME 14.0 (H) 9.0 - 12.0 s INR 1.3 (H) 0.9 - 1.1 APTT 25.6 20.0 - 30.5 s Radiology Personal review: CT head shows increase in midline shift of ~9mm L->R. No acute blood noted ASSESSMENT / PLAN : 74 yo female s/p removal of infected bone flap 06/27 who was readmitted for headaches No neurosurgical intervention indicated at this time CT head at noon-if stable may have diet and will repeat CT head tomorrow morning. Will make pt NPO at midnight for possible intervention tomorrow if needed Hold all anticoagulation Will update chart when more info available Discussed with Dr. Barcenas I spent 50 min reviewing images, labs, examining pt, and discussing plan with pt and other providers regarding SDH. RESS NOTE Observed: 07/07/2024 8:06 AM Status: COMPLETED Source: [facility] Pharmacy to Dose Vancomycin - Progress Note Lab Results Component Value Date CREATININE 0.60 07/07/2024 BUN 12 07/07/2024 WBC 6.9 07/07/2024 VANCOTROUGH 23.3 07/07/2024 Doses, serum creatinine, and vancomycin levels interfaced automatically to [employer] and data has been analyzed and interpreted. Infectious Diagnosis: SSTI Est CrCl: >100 mL/min (Cockcroft-Gault) Assessment: Current regimen vancomycin 1000 mg every 12 hours (12.9 mg/kg) Predicted AUC = 550 mg/L*hr (goal 400-600 mg/L*hr) PAUC = 100% (probability that AUC is >400 mg/L*hr) Pconc = 6% (probability that Ctrough is above 20 mcg/mL (toxicity)) Plan: Is the current dose therapeutic? [x] Yes - obtain next level on 07/14/24 unless predicted AUC is sub-/supra-therapeutic or change in serum creatinine. Trend serum creatinine. Trend AUC using Bayesian Modeling. Orders placed. DATE: 07/07/24 TIME: 8:07 AM Dolly Chamorro [facility] Clinical Pharmacist Available via Secure Chat PROGRESS NOTE Observed: 07/07/2024 7:14 AM Status: COMPLETED Source: [facility] PHYSICAL THERAPY [facility] Name/MRN: Carla Sanchez ([id number]) Date: 07/07/2024 PT orders received. Pt with active strict bedrest orders. Ramona Carver, PT PROGRESS NOTE Observed: 07/07/2024 6:58 AM Status: COMPLETED Source: [facility] OCCUPATIONAL THERAPY [facility] Name/MRN: Carla Sanchez ([id number]) Date: 07/07/2024 OT orders received, chart reviewed. Pt currently with bedrest orders. Hold OT pending upgraded activity orders. Will re-attempt as schedule permits. Jasmin King, OT PROGRESS NOTE Observed: 07/07/2024 6:49 AM Status: COMPLETED Source: [facility] Attestation signed by Carlin Stinson MD at 08/20/2024 9:32 PM (Updated) ATTENDING ADDENDUM Active Diagnoses/Problems this Admission: Patient Active Problem List Diagnosis SDH (subdural hematoma) (HCC) Intracranial hemorrhage (HCC) Infected bone flap, initial encounter (HCC) Intracranial bleed (HCC) I personally supervised the resident physician in the evaluation and development of a treatment plan for this patient on the same day of service as above. I personally discussed the review of systems and interviewed the patient along with performing a physical examination. I reviewed the recent events, imaging, labs, vital signs. In addition, I discussed the patient's condition and treatment options with him/her when possible. I have also reviewed and agree with the past medical, family, and social history unless otherwise noted. All of the patient's questions were answered and family updated when appropriate and possible. A complete review of systems was obtained and is negative except as stated in HPI and/or Subjective Section. 74F s/p recent L craniectomy for SSI 06/27, returns w/ worsening headache, found to have new L SDH PLAN: - I evaluated pt on 07/07/24 - NSGY following: rCTH this AM shows increased SDH w/ shift; pt remains asymptomatic - plan for rCTH at noon today, if stable, may have diet and plan for rCTH 2/4 AM; keep NPO@MN for OR if needed - q1h neuro checks, HOB@30 - vit k given for INR 1.3 - goal SBP< 150 mmHg - PRN Labetalol and Hydralazine - pain control - NPO, NS for mIVF - prior bone flap infection - ID following, cont vanc - Geriatric consult - Palliative care consult - hold DVT prophylaxis, SCDs only - PT/OT Level of Medical Decision Making: [x]High []Moderate []Low Complexity: Acute or chronic illness posing a threat to life (HIGH) Risk: Parental controlled substances (HIGH) Requires close neuro-critical care monitoring due to risk of neurological deterioration (HIGH) Prescription drug management (MOD) Personally Reviewed/Independently interpreted patient's: [x]Epic notes [x]Radiology studies [x]Labs []EKG []Ordering tests []Other Discussed/ With: [x]Patient/Family []RN []Consultants [x]Primary []SW/TCC []Other I spent total time of 50 minutes reviewing previous notes, test results, and face to face with Crala Sanchez discussing the diagnosis and importance of compliance with the treatment plan as well as documenting on the day of the visit. Time was spent, Reviewing medical record including recent tests and results Ordering prescription medications/tests and procedures Communicating results to the patient/family/caregiver Counseling/educating the patient/family/caregiver Documenting clinical information the patient's electronic record Coordination of care for the patient Performing a medical appropriate exam and evaluation Carlin Stinson MD, FACS Trauma, Surgical Critical Care, & General Surgery Division of Trauma Department of Surgery [facility] Daily Trauma Progress Note Resident 07/07/2024 6:49 AM Admit Date: 07/06/2024 Post Trauma Day 07/06/2024 Other Intracranial hemorrhage after left craniotomy HPI: Carla Sanchez is a 74 y.o. female with significant past medical history of exposed hardware L craniotomy on 06/27 for removal infected bone flap and eposed hardwar, fibromyalgia on baclofen, GERD, UTI, IZZY, duodenal ulcer, also R craniotomy in 2021 for subdural hematoma with MMA embilization who presented on 07/06 as transfer from [place] with chief complaint of headache and vomiting. ICU was consulted for management of intracranial hemorrhage Patient states she was in her normal state of health until 2 days ago when she started experiencing headaches and that she vomited. She was transferred from her transitional care unit to the ED at [place] where workup showed new foci of likely ICH at the surgical bed with slight increase of midline shift from prior 3mm to 5 mm. INJURIES: L SDH (9mm in L posterior), parafalcine SDH, tentorium. Midline shift to R 8mm PROCEDURES: NA INCIDENTAL FINDINGS: NA CHIEF COMPLAINT: Lower back soreness PREVIOUS 24 HOUR EVENTS: Transfer from [place] - interval CTH showing increased shift to 8mm Consults: IP CONSULT TO NEUROSURGERY IP CONSULT TO INFECTIOUS DISEASES PHARMACY TO DOSE VANCO IP WOUND CARE NURSE CONSULT TO EVAL MEDICATIONS: Current Facility-Administered Medications: acetaminophen (Tylenol) tablet 1,000 mg, 1,000 mg, Oral, q6h PRN, Carlin Sanchez MD, 1,000 mg at 07/07/24 0235 baclofen (Lioresal) tablet 10 mg, 10 mg, Oral, BID PRN, Carlin Sanchez MD, 10 mg at 07/06/24 2242 chlorhexidine (Hibiclens) 4 % solution, , Topical, Daily, Carlin Sanchez MD hydrALAZINE (Apresoline) injection 10 mg, 10 mg, IntraVENous, q1h PRN, Carlin Sanchez MD labetalol (Normodyne,Trandate) injection 10 mg, 10 mg, IntraVENous, q1h PRN, Carlin Sanchez MD mupirocin (Bactroban) 2 % ointment 1 Application, 1 Application, Nasal, BID, Carlin Sanchez MD, 1 Application at 07/06/24 2222 naloxone (Narcan) injection 0.4 mg, 0.4 mg, IntraVENous, q5 min PRN, Carlin Sanchez MD ondansetron ODT (Zofran-ODT) disintegrating tablet 4 mg, 4 mg, Oral, q8h PRN OR ondansetron (Zofran) injection 4 mg, 4 mg, IntraVENous, q6h PRN, Carlin Sanchez MD oxyCODONE (Roxicodone) immediate release tablet 2.5 mg, 2.5 mg, Oral, q4h PRN OR oxyCODONE (Roxicodone) immediate release tablet 5 mg, 5 mg, Oral, q4h PRN, Carlin Sanchez MD pantoprazole (ProtoNix) EC tablet 40 mg, 40 mg, Oral, Daily, Carlin Sanchez MD polyethylene glycol (PEG) 3350 (Miralax) packet 17 g, 17 g, Oral, Daily PRN, Carlin Sanchez MD sennosides (Senokot) tablet 8.6 mg, 1 tablet, Oral, BID, Jorge Alberto Smyth MD sodium chloride 0.9 % infusion, 75 mL/hr, IntraVENous, Continuous, Carlin Sanchez MD, Last Rate: 75 mL/hr at 07/07/24 0000, 75 mL/hr at 07/07/24 0000 sodium chloride 0.9% (NS) flush 10 mL, 10 mL, IntraCATHeter, q12h, Carlin Sanchez MD, 10 mL at 07/06/24 2222 sodium chloride 0.9% (NS) flush 10 mL, 10 mL, IntraCATHeter, PRN, Carlin Sanchez MD sodium chloride 0.9% (NS) flush 30 mL, 30 mL, IntraVENous, q6h, Carlin Sanchez MD, 30 mL at 07/07/24 0730 sodium chloride 0.9% (NS) flush 30 mL, 30 mL, IntraVENous, PRN, Carlin Sanchez MD sodium chloride 0.9% (NS) flush 30 mL, 30 mL, IntraVENous, PRN, Carlin Sanchez MD vancomycin IVPB 1000 mg in 200 mL NS (premix), 1,000 mg, IntraVENous, q12h, Carlin Sanchez MD, Stopped at 07/06/24 2352 ARE THERE PERTINENT UPDATES TO PAST,FAMILY, OR SOCIAL HISTORY?: No Subjective: NAEO. Feeling well, states nausea gone, headache only with sudden movements or bending over. Got OOB to toilet w/ RN help w/o issue. Review of Systems as above, otherwise negative. PC-PTSD-5 Had nightmares about the event(s) or thought about the event(s) when you did not want to? No 2. Tried hard not to think about the event(s) or went out of your way to avoid situations that reminded you of the event(s)? No 3. Been constantly on guard, watchful, or easily startled? No 4. [place] numb or detached from people, activities, or your surroundings? No 5. [place] guilty or unable to stop blaming yourself or others for the event(s) or any problems the event(s) may have caused? No If yes place CLP consult PHQ In the last 2 weeks have you had: Little interest or pleasure in doing things No Been feeling down, depressed, or hopeless No If greater then 0, place CLP consult Date PHQ completed: 07/07/24 Objective: Patient Vitals for the past 24 hrs: BP Temp Temp src Pulse Resp SpO2 07/07/24 0600 99/57 -- -- 80 17 96 % 07/07/24 0508 124/56 -- -- 89 13 98 % 07/07/24 0400 96/58 -- -- 84 21 95 % 07/07/24 0300 113/55 -- -- 82 16 97 % 07/07/24 0200 108/65 -- -- 87 19 93 % 07/07/24 0100 100/62 -- -- 87 18 93 % 07/07/24 0000 100/62 -- -- 82 21 98 % 07/06/24 2300 105/54 -- -- 99 20 94 % 07/06/24 2200 108/67 -- -- 88 22 94 % 07/06/24 2100 109/68 -- -- 90 17 96 % 07/06/24 2000 103/65 -- -- 87 18 95 % 07/06/24 1900 115/71 -- -- 87 13 95 % 07/06/24 1830 (!) 122/44 36.9 ?C (98.4 ?F) Temporal 90 17 94 % No intake or output data in the 24 hours ending 07/07/24 0649 No intake/output data recorded. Last BM: BELL RINGER Diet: Dietary Orders (From admission, onward) Start Ordered 07/07/24 0001 NPO diet with enteral medications Diet effective midnight Question: Medications? Answer: with enteral medications 07/06/242008 CVP: No Chest Tubes: R: No L: No PHYSICAL: CONSTITUTIONAL: awake, alert, cooperative, no apparent distress HEENT: Left craniotomy site is clean dry and intact with overlying yao and bacitracin NECK: Supple, symmetrical, trachea midline LUNGS: No increased work of breathing, good air exchange CARDIOVASCULAR: Well perfused, HR and BP stable ABDOMEN: Soft, non-distended, non-tender, no rebound, no guarding CHEST: no masses palpated, non-tender GENITAL/URINARY: Not examined MUSCULOSKELETAL: There is no redness, warmth, or swelling of the joints. Full range of motion noted. NEUROLOGIC: Awake, alert, oriented to name, place and time. No focal neurodeficits, pupils 3 mm SKIN: normal skin color, texture, no redness, warmth, or swelling Sutures or yao? Yes O2: / / / Data Review Data CBC with Differential: Lab Results Component Value Date WBC 6.9 07/07/2024 RBC 3.66 (L) 07/07/2024 HGB 11.1 (L) 07/07/2024 HCT 33.7 (L) 07/07/2024 PLT 151 07/07/2024 CMP: Lab Results Component Value Date NA 140 07/07/2024 K 4.1 07/07/2024 CL 109 (H) 07/07/2024 CO2 26 07/07/2024 BUN 12 07/07/2024 CREATININE 0.60 07/07/2024 GLUCOSE 110 07/07/2024 CALCIUM 8.2 (L) 07/07/2024 BMP: Hepatic Function Panel:Ionized Calcium: No components found for: IONCA Magnesium: No results found for: MG Phosphorus: No results found for: PHOS PT/INR: Lab Results Component Value Date PROTIME 14.0 (H) 07/07/2024 INR 1.3 (H) 07/07/2024 PTT: Lab Results Component Value Date APTT 25.6 07/07/2024 [APTT Last 3 Troponin: No results found for: TROPONINI Urine Culture: No components found for: CURINE Blood Culture: No components found for: CBLOOD, CFUNGUSBL Blood Culture from Central Line: No components found for: CBLOODLN Stool Culture: No components found for: CSTOOL Sputum Culture: No components found for: CSPUTUM Sputum Culture for AFB: No components found for: CAFBSM Wound Culture: N/A Radiology: See EMR, reviewed daily Patient Active Problem List Diagnosis SDH (subdural hematoma) (HCC) Intracranial hemorrhage (HCC) Infected bone flap, initial encounter (HCC) Intracranial bleed (HCC) Assessment: This is a 74 y.o. female with recent L craniotomy for removal of infected hardware who presents with concern for intracranial hemorrhage Plan: Neuro / Spine #Recent L craniotomy with removal of infected hardware and ?new ICH - Appreciate nsg recs: Repeat CT head in AM w/ interval increase in shift to 8mm - Repeat CTH @ noon, second repeat in AM, NPO at ND for possible intervention - Pain control: tylenol prn, prn oxycodone - Elevate HOB 30 degrees - Bed rest #Fibromyalgia -Continue home baclofen 10mg BID prn - Geriatrics c/s Cardiovascular - Hemodynamically stable - Labetalol/hydralazine prn - Telemetry Pulmonary - Standard O2 protocol - IS FEN/GI - Regular diet, npo midnight - Zofran PRN - Daily BMP, CBC, Mg, Phos #GERD - Continue home protonix - No acute issues - Monitor I/Os - Goal UOP > 0.5 ml/kg/hr Endocrine - No acute issues Heme - Hgb stable - No transfusions indicated - INR was 1.3 -> given Vitamin K ID #Infected craniotomy -PICC in place, ID consulted -Continue vancomycin, pharmacy to dose Lines/Devices: - PIV Prophylaxis: DVT: SCDs, hold dvt ppx Has DVT PPX been started? No If no, why? Concern for headbleed GI: Home protonix Pressure Ulcer: Continue to monitor Musculoskeletal: - PT/OT - OOB with helmet w/ assist - All extremities AT Is the patient in restraints?: no Medications Reconciled- Yes [x] NO [] [facility] Christal Knott MD General Surgery Resident 07/07/24 6:49 AM This note may have been dictated using [employer] Practice Edition 2.6 and/or [employer] Voice Recognition Feature. The document was proofread; however, unrecognized voice recognition gutter hanger errors may be present. PROTIME AND APTT Collected: 07/07/2024 5:56 AM Statu s: F Source: [employer] [facility] TYPE CODE TESTS RESULT OUT OF RANGE REFERENCE UNITS LAB [id number] PROTHROMBIN TIME 14.0 High 9.0-12.0 s LAB [id number] INR 1.3 High 0.9-1.1 Result Comment: Recommended Anticoagulant Therapy: SEE BELOW ----- INR of 2.0 - 3.0 : - Prophylaxis of Venous Thrombosis (high-risk surgery) - Treatment of Venous Thrombosis - Treatment of Pulmonary Embolism (Includes tissue heart valves, Acute Myocardial Infarction to prevent systemic embolism, Valvular Heart Disease, and Atrial Fibrillation) ----- INR of 2.5 - 3.5 : - Mechanical Prosthetic Valves (high risk) - If oral anticoagulant therapy is used to prevent Myocardial Infarction LAB [id number] APTT 25.6 20.0-30.5 s Performed By: #### [id number] #### Prize Jacker: ARTURO TANNER ([id number]) [facility] ([facility]) [address] [place] [address] CT HEAD WO IV CONTRAST Observed: 5:20 AM Status: F Source: [employer] [facility] Patient Name: CARLA SANCHEZ : 1950 Exam Date/Time: 07/07/2024 04:53 Procedure: CT HEAD WO IV CONTRAST Ordering Provider: SMYTH ALEKSANDAR Reason For Exam: Intracranial hemorrhage at prior L craniotomy site on outside scan, repeat CT head for stability Indication: Left craniotomy Comparison date: 06/28/2019 10/05/2024 FINDINGS: Dose reduction was employed with automated exposure control.3 mm unenhanced imaging of the brain performed. Images viewed in multiple orthogonal planes. Status post left craniotomy. EXAMINATION LIMITED BY MOTION, STREAK ARTIFACT. Interval low-density left subdural fluid collection, 6 mm in thickness. Left posterior acute subdural hematoma 6 mm. Parafalcine acute appearing subdural posteriorly. Acute blood along the tentorium. Midline shift to the right, 8 mm, increased. No definite acute infarct seen. Orbits within normal limits, limited lack of contrast. Review of the paranasal sinuses shows no air-fluid levels. IMPRESSION: New subdural hematoma. Midline shift, increased compared to prior. CTR Dr. Barcenas Report Dictated on Electronically Signed By: Manuel Medel MD Electronically Signed Date/Time: 07/07/2024 5:20 AM EST CBC WITH AUTO DIFFERENTIAL Collected: 07/07/2024 4:20 AM Status: F Source: [facility] TYPE CODE TESTS RESULT OUT OF RANGE REFERENCE UNITS LAB [id number] WBC 6.9 3.6-10.7 10*3/uL LAB [id number] RBC 3.66 Low 3.80-5.20 10*6/uL LAB 7653200 HEMOGLOBIN 11.1 Low 11.7-16.0 g/dL LAB 7077097 HEMATOCRIT 33.7 Low 35.0-47.0 % LAB [id number] MCV 92.1 77.0-99.0 fL LAB 6005171 MCH 30.3 26.0-34.0 pg LAB 6175320 MCHC 32.9 30.5-36.0 % LAB 7445943 RDW 14.0 11.5-15.0 % LAB 6457124 PLATELET COUNT 151 140-440 10*3/uL LAB [id number] MPV 10.1 9.0-12.7 fL LAB 254 NRBC 0.0 0.0-2.0 /100 WBCs LAB 0343089 NEUTROPHILS RELATIVE 68.2 38.0-82.0 % LAB 0021713 LYMPHOCYTES RELATIVE 18.2 15.0-45.0 % LAB 1362824 MONOCYTES RELATIVE 9.1 5.0-13.0 % LAB 2335434 EOSINOPHILS RELATIVE 3.8 0.0-6.0 % LAB 3819389 BASOPHILS RELATIVE 0.4 0.0-2.0 % LAB 3542611 IMMATURE GRANS % 0.3 0.0-2.0 % LAB 6899781 NEUTROPHILS ABSOLUTE 4.7 1.8-7.5 10*3/uL LAB 9674902 LYMPHOCYTES ABSOLUTE 1.3 1.0-4.3 10*3/uL LAB 7950857 MONOCYTES ABSOLUTE 0.6 0.0-0.9 10*3/uL LAB 9647977 EOSINOPHILS ABSOLUTE 0.3 0.0-0.5 10*3/uL LAB 9988343 BASOPHILS ABSOLUTE 0.0 0.0-0.2 10*3/uL LAB 669376 IMMATURE GRANS ABSOLUTE 0.0 <0.1 10*3/uL Performed By: #### [id number] # ### Prize Jacker: ARTURO TANNER ([phone]) [facility] ([address] BASIC METABOLIC PANEL Collected: 2024 4:20 AM Status: F Source: [facility] TYPE CODE TESTS RESULT OUT OF RANGE REFERENCE UNITS LAB 8292550 SODIUM 140 136-145 mmol/L LAB 9376899 POTASSIUM 4.1 3.5-5.1 mmol/L Result Comment: Plasma potas sium values may be up to 0.5 mmol/L lower than serum values. LAB 3219985 CHLORIDE 109 High 98-107 mmol/L LAB 5623960 CARBON DIOXIDE 26 23-31 mmol/L LAB 7962834 UREA NITROGEN 12 9-23 mg/dL LAB 5066066 CREATININE 0.60 0.57-1.11 mg/dL LAB 6897036 GLUCOSE 110 82-115 mg/dL LAB 1843863 CALCIUM 8.2 Low 8.8-10.0 mg/dL LAB [id number] ANION GAP (VALLE, CALCULATED) 5 3-13 mmol/L LAB 2969038 GLOMERULAR FILTRATION RATE ML/MIN/1.73 SQ M.PREDICTED >90.0 >60.0 mL/min/1. 73m*2 Result Comment: Calculation based on the Chronic Kidney Disease Epidemiology Collaboration (CKD-EPI) equation refit without adjustment for race Performed By: #### LAB15 ### # Prize Jacker: ARTURO TANNER ([phone]) [address] VANCOMYCIN, AUC TIMED DOSING Collected: 07/07/2024 4:20 AM Status: F Source: [facility] TYPE CODE TESTS RESULT OUT OF RANGE REFERENCE UNITS LAB 8337107 VANCOMYCIN, AUC 23.3 ug/mL Result Comment: ORDER COMMEN TS: Please draw random level at least >2 hours after the end of the last vancomycin infusion, or 30-minutes before next infusion. Toxicity is seen at concentrations >80-100 ug/mL Therapeutic (Peak) range: 20-40 Therapeutic (Trough) range: 5-10 Performed By: #### LAB39 ### # Prize Jacker: ARTURO TANNER ([phone]) [facility] ([facility]) [address] [place] [address] XR CHEST 1 VIEW Observed: 07/06/2024 11:10 PM Status: F Source: [facility] Patient Name: CARLA SANCHEZ : 1950 [facility]#: [id number] Exam Date/Time: 07/06/2024 21:18 Procedure: XR CHEST 1 VIEW Ordering Provider: SMYTH ALEKSANDAR Reason For Exam: Evaluate picc line INDICATION: Evaluate PICC line placement. VIEWS: Chest portable-one image COMPARISON: 07/02/2024 FINDINGS: A left PICC line is present with tip overlying the caval atrial junction. The trachea is midline. The heart is not enlarged. The lung volumes are low. The costophrenic angles are sharp. IMPRESSION: Left PICC line. Report Dictated on Electronically Signed By: Saira House MD Electronically Signed Date/Time: 07/06/2024 11:10 PM EST PROGRESS NOTE Observed: 07/06/2024 9:53 PM Status: COMPLETED Source: [facility] Pharmacy Managed Vancomycin Dosing Service Consult Note Consult Date: 07/06/24 Patient Name: Carla Sanchez Allergies: Ibuprofen, Penicillins, and Prednisone Age: 74 y.o. Sex: female Estimated body mass index is 26.78 kg/m? as calculated from the following: Height as of 06/28/24: 1.702 m (5' 7.01). Weight as of 07/03/24: 77.6 kg (171 lb). DW: 77.6 kg Lab Results Component Value Date CREATININE 0.61 07/02/2024 CREATININE 0.56 (L) 06/30/2024 BUN 14 07/02/2024 BUN 8 (L) 06/30/2024 WBC 6.2 07/02/2024 WBC 7.6 06/30/2024 Calculated CrCl: 100.43 mL/min (Cockcroft-Gault) Consulted By: Dr. Carlin Sanchez Infectious Diagnosis: Skin and Soft Tissue (AUC Goal 400-600 mg/L*hr) Random Vancomycin Level Due: 07/07/2024 0600 Antimicrobials: Patient recently received an antibiotic (last 12 hours) None Assessment/Plan: Doses, serum creatinine, and vancomycin levels interfaced automatically to [employer] and data has been analyzed and interpreted. Start Vancomycin 1000 mg every 12 hours based on patient age, weight, renal function, and infectious diagnosis (12.9 mg/kg). Predicted AUC = 502 mg/L*hr (goal 400-600 mg/L*hr) PAUC = 93% (probability that AUC is >400 mg/L*hr) Pconc = 3% (probability that Ctrough is above 20 mcg/mL (toxicity)) Will assess random level on 07/07/2024 and adjust as appropriate. Trend serum creatinine. Orders placed. Thank you for this consult. Please secure text or call with questions. DATE: 07/06/24 TIME: 9:51 PM Kalia Lassiter PharmD Clinical Pharmacist Available via Secure Chat HISTORY AND PHYSICAL NOTE Observed: 07/2024 6:31 PM Status: COMPLETED Source: [facility] Attestation signed by Jorge Alberto Smyth MD at 07/07/2024 7:32 AM ~~~~~~~~~~~~~~~~~~~~~~~~~~~~~~~~~~~~~~~~~~~~~~~~~~~~~~~~~~~ Attending physician addendum: I independently saw and evaluated the patient. I personally obtained the ames and critical portion of the history and physical exam. I reviewed and agree with the documentation below. I personally reviewed patient's labs and imaging studies. My findings agree with the below note except for any details corrected. A complete review of systems was obtained and is negative except as stated in HPI. I have examined the patient at the date below. Patient Active Problem List Diagnosis SDH (subdural hematoma) (HCC) Intracranial hemorrhage (HCC) Infected bone flap, initial encounter (HCC) Intracranial bleed (HCC) Per Dr Sanchez's note. I have evaluated the patient on 07/06/2024 HPI: 74 y.o. female who underwent Left craniectomy for surgical site infection recently discharged following IR PICC line insertion for shelter IV Abx presented in [facility] ED with worsening headache, nausea and vomiting x 2 days. Denies head trauma Chief complain: headache, nausea and vomiting Problem list: Left SDH with brain compression midline shift Parafalcine SDH Craniotomy surgical site infection with MRSA Left craniotomy site infection s/p craniotomy in 2013 for SDH History of Right craniotomy in 2021 for SDH with MMA embolization TBI Seizures Diverticulitis Gastric ulcer History of smoking History of cholangitis with BSI History of gastric bypass Fibromyalgia GERD Surgeries / Procedures: 06/27 - Left craniotomy for removal of infected bone flap 07/02 - LUE IR PICC line placement Management / Plan : - q2h neuro checks - consult Neurosurgery - Dr Daniels contacted prior to patient arrival as a direct SICU admission - restart Vancomycin - consult Pharmacy to dose Vancomycin - re-consult ID - discuss with neuro surgery initiation of seizure prophylaxis - goal SBP< 150 mmHg - PRN Labetalol and Hydralazine - multimodal pain control - elevate head of bed - IVF - NS - NPO except medications - check INR - MRSA decolonization - start Mupirucine 2% ointment nasal BID - reconcile home medications - hold initiation of chemo DVT prophylaxis, SCDs only - PT/OT - repeat head CT in AM or with changes in neuro exam - cardiopulmonary monitoring and neuro checks in TICU Level of Medical Decision Making: risk of morbidity from additional diagnostic testing or treatment due to postoperative management []High [x]Moderate []Low Personally Reviewed/Independently interpreted patient's: [x]Epic notes [x]Radiology studies [x]Labs []EKG [x]Ordering tests []Other Discussed/ With: [x]Patient/Family [x]RN [x]Consultants []SW/TCC []Other I spent total time of >= 60 minutes reviewing previous notes, test results, and face to face with Carla Sanchez discussing the diagnosis and importance of compliance with the treatment plan as well as documenting on the day of the visit. Time was spent, Reviewing medical record including recent tests and results Ordering prescription medications/tests and procedures Communicating results to the patient/family/caregiver Counseling/educating the patient/family/caregiver Documenting clinical information the patient's electronic record Coordination of care for the patient Performing a medical appropriate exam and evaluation Bulmaro Smyth MD FACS Trauma, Surgical Critical Care, & General Surgery Division of Trauma Department of Surgery [facility] P SICU Resident H&P 07/06/2024 CHIEF COMPLAINT: No chief complaint on file. Reason for Consult: Intracranial hemorrhage after left craniotomy HISTORY OF PRESENT ILLNESS: Carla Sanchez is a 74 y.o. female with significant past medical history of exposed hardware L craniotomy on 06/27 for removal infected bone flap and eposed hardwar, fibromyalgia on baclofen, GERD, UTI, IZZY, duodenal ulcer, also R craniotomy in 2021 for subdural hematoma with MMA embilization who presented on 07/06 as transfer from [facility] with chief complaint of headache and vomiting. ICU was consulted for management of intracranial hemorrhage Patient states she was in her normal state of health until 2 days ago when she started experiencing headaches and that she vomited today. She was transferred from her transitional care unit to the emergency department at [facility] where workup there with CT head showed new foci of likely intracranial hemorrhage at the surgical bed with slight increase of midline shift from prior 3mm to 5 mm. On evaluation patient was afebrile, hemodynamically stable. Past Medical History: Diagnosis Date Anemia Arthritis Brain bleed ([facility]) 2013, 2021 Diverticulitis Gastric ulcer Leg fracture, right Right arm fracture Seizures ([facility]) 2013 with first craniotomy- while in hospital- none since Thoracic spine fracture ([facility]) Past Surgical History: Procedure Laterality Date ABDOMINAL SURGERY 07/2021 on stomach CHOLECYSTECTOMY COLONOSCOPY CRANIOTOMY Left 2013 DILATION AND CURETTAGE OF UTERUS HAND SURGERY Right fracture repiair SMALL INTESTINE SURGERY small part removed UPPER GASTROINTESTINAL ENDOSCOPY Medications Prior to Admission: No current facility-administered medications for this encounter. Allergies: Ibuprofen, Penicillins, and Prednisone Social History Socioeconomic History Marital status: Tobacco Use Smoking status: Former Current packs/day: 0.00 Types: Cigarettes Quit date: 10/27/2019 Years since quittin.6 Smokeless tobacco: Never Vaping Use Vaping status: Never Used Substance and Sexual Activity Alcohol use: Yes Alcohol/week: 1.0 standard drink of alcohol Types: 1 Standard drinks or equivalent per week Comment: rare-holidays or special occ Drug use: Not Currently Social Drivers of Health Financial Resource Strain: Low Risk (08/12/2023) Received from [facility] Overall Financial Resource Strain (CARDIA) Difficulty of Paying Living Expenses: Not hard at all Food Insecurity: No Food Insecurity (07/03/2024) Hunger Vital Sign Worried About Running Out of Food in the Last Year: Never true Ran Out of Food in the Last Year: Never true Transportation Needs: No Transportation Needs (07/03/2024) PRAPARE - Transportation Lack of Transportation (Medical): No Lack of Transportation (Non-Medical): No Intimate Partner Violence: Not At Risk (07/03/2024) Humiliation, Afraid, Rape, and Kick questionnaire Fear of Current or Ex-Partner: No Emotionally Abused: No Physically Abused: No Sexually Abused: No Housing Stability: Low Risk (07/03/2024) Housing Stability Vital Sign Unable to Pay for Housing in the Last Year: No Number of Times Moved in the Last Year: 0 Homeless in the Last Year: No Family History Problem Relation Name Age of Onset Breast cancer Mother Heart disease Father REVIEW OF SYSTEMS: Review of Systems Constitutional: Negative for chills and fever. HENT: Negative for ear discharge and facial swelling. Eyes: Negative for discharge and visual disturbance. Respiratory: Negative for chest tightness and shortness of breath. Cardiovascular: Negative for chest pain and leg swelling. Gastrointestinal: Positive for vomiting. Negative for abdominal distention and abdominal pain. Genitourinary: Negative for difficulty urinating and flank pain. Musculoskeletal: Negative for gait problem and joint swelling. Skin: Negative for color change and wound. Neurological: Positive for headaches. Negative for seizures and syncope. Psychiatric/Behavioral: Negative for agitation and behavioral problems. PHYSICAL EXAM: There were no vitals filed for this visit. No intake/output data recorded. CONSTITUTIONAL: awake, alert, cooperative, no apparent distress HEENT: Left craniotomy site is clean dry and intact with overlying yao and bacitracin NECK: Supple, symmetrical, trachea midline LUNGS: No increased work of breathing, good air exchange CARDIOVASCULAR: Well perfused, HR and BP stable ABDOMEN: Soft, non-distended, non-tender, no rebound, no guarding CHEST: no masses palpated, non-tender GENITAL/URINARY: Not examined MUSCULOSKELETAL: There is no redness, warmth, or swelling of the joints. Full range of motion noted. NEUROLOGIC: Awake, alert, oriented to name, place and time. No focal neurodeficits, pupils 3 mm SKIN: normal skin color, texture, no redness, warmth, or swelling DATA: CBC: No results found for: WBC, RBC, HGB, HCT, MCV, MCH, MCHC, RDW, PLT, MPV BMP: No results found for: NA, K, CL, CO2, BUN, CREATININE, CALCIUM, LABGLOM, GLUCOSE, GLU Hepatic Function Panel: No results found for: ALKPHOS, ALT, AST, PROT, BILITOT, BILIDIR PT/INR: No results found for: PROTIME, INR Troponin: No results found for: TROPONINI LIPASE: No results found for: LIPASE IMAGING: IR CVC picc placement Narrative: Patient Name: CARLA SANCHEZ : 1950 Exam Date/Time: 07/03/2024 10:02 Procedure: IR CVC PICC PLACEMENT Ordering Provider: OTT GWENDOLYN Reason For Exam: Had ventricular ectopy with glidewire and STILL NOT ABLE TO GET PICC TIP INTO SVC at bedside, please reposition, thank you! MD Nabila PROCEDURE: Peripherally Inserted Central Catheter (PICC) placement Procedural Personnel Attending physician(s): Joaquín Ordaz MD Indication: Administration of intravenous medications Additional clinical history: None Complications: No immediate complications. Impression: Insertion of left-sided dual-lumen power injectable PICC, with tip in the expected location of the cavoatrial junction. Plan: The catheter may be used immediately. PROCEDURE SUMMARY: - PICC insertion with fluoroscopic guidance - Additional procedure(s): None PROCEDURE DETAILS: Pre-procedure Consent: Informed consent for the procedure including risks, benefits and alternatives was obtained and time-out was performed prior to the procedure. Preparation (MIPS): The site was prepared and draped using all elements of maximal sterile barrier technique including sterile gloves, sterile gown, cap, mask, large sterile sheet, sterile ultrasound probe cover, hand hygiene and cutaneous antisepsis with 2% chlorhexidine or iodine cleanser. Anesthesia/sedation No sedation administered. Access Pre-existing PICC line was utilized for intravenous access. The pre-existing PICC line was retracted into the upper arm, and was then severed. Through the severed pre-existing PICC line, a wire was inserted and over the wire the pre-existing PICC line was removed. Subsequently, the peel-away sheath was placed over the wire. Venography Indication for venography: Not performed Vein catheterized: Not applicable Findings: Not applicable Catheter placement The catheter was trimmed to appropriate length and placed into the vein under fluoroscopic guidance via a peel-away sheath. Catheter tip location was fluoroscopically verified and a permanent image was stored. A sterile dressing was applied. Catheter placed: 5 Fr dual lumen PICC Catheter intravascular length (cm): 48 Catheter tip position: Cavoatrial Junction. Catheter flush: Heparin (100 units/mL) Catheter securement technique: Stat-Lock Contrast Contrast agent: None Contrast volume (mL): 0 Radiation Dose Fluoroscopy time (minutes): 0.7 Air Kerma (mGy): 3.07 Angiographic runs: 0 Fluoroscopic spot images: 0 Fluoroscopic saved images were obtained. These images do NOT add additional exposure to ionizing radiation and were captured electronically from the imaging chain. Additional Details Additional description of procedure: None Equipment details: None Specimens removed: None Estimated blood loss (mL): Less than 10 Report Dictated on Electronically Signed By: Joaquín Ordaz MD Electronically Signed Date/Time: 07/03/2024 12:40 PM EST ASSESSMENT AND PLAN: This is a 74 y.o. female with recent L craniotomy for removal of infected hardware who presents with concern for intracranial hemorrhage PLAN: Neuro / Spine #Recent L craniotomy with removal of infected hardware and ?new ICH - Appreciate nsg recs: no surgical intervention. Repeat CT head in AM - Pain control: tylenol prn, prn oxycodone - Elevate HOB 30 degrees #Fibromyalgia -Continue home baclofen 10mg BID prn Cardiovascular - Hemodynamically stable - Labetalol/hydralazine prn - Telemetry Pulmonary - Standard O2 protocol - IS FEN/GI - Regular diet, npo midnight - Zofran PRN - Daily BMP, CBC, Mg, Phos #GERD - Continue home protonix - No acute issues - Monitor I/Os - Goal UOP > 0.5 ml/kg/hr Endocrine - No acute issues Heme - Hgb stable - No transfusions indicated ID #Infected craniotomy -PICC in place, ID consult -Continue vancomycin, pharmacy to dose Lines/Devices: - PIV Prophylaxis: DVT: SCDs, hold dvt ppx Has DVT PPX been started? No If no, why? Concern for headbleed GI: Home protonix Pressure Ulcer: Continue to monitor Musculoskeletal: - PT/OT - Bedrest - All extremities AT Patient discussed with attending, Dr. Smyth. Carlin Sanchez MD General Surgery 07/06/24 6:32 PM Pager # [phone] Observed: 07/04/2024 1:35 PM Status: COMPLETED Source: [facility] Attempted to call patient to do a post op call. Left a message to call the office. 36 Observed: 07/04/2024 1:27 PM Status: COMPLETED Source: [facility] Post op call Incision- Showering- BM's- Pain medication- Pain- Brace (If needed)- How is pt doing?- 36 Observed: 07/04/2024 11:59 AM Status: COMPLETED Source: [facility] Patient discharged to [facility] [phone], spoke to Margaux to verify antibiotics weekly labs and follow up appointment. She verbalized understanding. [phone] Observed: 07/03/2024 1:19 PM Status: COMPLETED Source: [facility] Discharge med list transmitt ed to [facility] via [facility] per [facility] request. [phone] Observed: 07/03/2024 1:19 PM Status: COMPLETED Source: [facility] Next Site of Care Admission Date: 06/27/2024 07:36 AM Patient Name: CARLA SANCHEZ Location: [facility] [id number] Date of : 1950 Placement Information Referral Type:Home Infusion Referral ID:[id number] Provider Name: Address 1: Phone Number: Address 2: Fax Number: City: Selection Factors: State: Referral Type:Alf/SNF - New Referral ID:[id number] Provider Name:[facility] Address 1:[address] Address 2: City:[place] Selection Factors:Patient/Family Choice State:[place] NURSING NOTE Observed: 07/03/2024 12:48 PM Status: COMPLETED Source: [facility] Patient discharged at this t maite with sister. NURSING NOTE Observed: 07/03/2024 12:04 PM Status: COMPLETED Source: [facility] Report called to Adelina at [facility]. No further questions. Patients sister transporting patient. NURSING NOTE Observed: 07/03/2024 11:30 AM Status: COMPLETED Source: [facility] Vanc was stopped at 1029 due to IV leaking. New PICC line was placed. Notified Dr. Honeycutt that AM dose did not complete. Ok to miss remain dose and start fresh this evening. 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 Patient is s/p left craniotomy for removal of infected bone flap and exposed hardware. Neurosurgery team has signed off at this point. Patient to follow-up outpatient with NSGY team. Infectious disease following-appreciate recommendations. Patient to continue vancomycin. Repeat blood cultures NGTD. Plan for 6 weeks of antibiotics noted. Infection disease recommends vancomycin, for 6 weeks. July 03 status post PICC line placement urinary neurosurgery recommends no further neurosurgical intervention. Okay to DC from neurosurgery standpoint. Cultures growing MRSA Hospitalist Discharge Summary Carla Sanchez : 1950 Admit date: 06/27/2024 Discharge date: 07/03/2024 Admitting Physician: Jose Pitts MD Primary Care Physician: MARY SMITH Visit Status: Inpatient Code Status: Full Code BRIEF HOSPITAL COURSE: Carla is a 74-year-old female with past medical history of craniotomy in past, diverticulitis, PUD, anemia, arthritis, seizures, gastric ulcer who underwent left craniotomy for removal of infected bone flap and exposed hardware on 06/[address] Barcenas. Postoperatively, patient was admitted under ICU. Patient was started on broad-spectrum antibiotics -vancomycin and cefepime. Or cultures noted to be positive for MRSA. Cefepime stopped on 06/29 and patient started on vancomycin with plans to stop on 08/08/24. PICC line placed on 07/02/24. On the day of discharge, patient deemed medically stable and ready for discharge to SNF. 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 Patient is s/p left craniotomy for removal of infected bone flap and exposed hardware. Neurosurgery team has signed off at this point. Patient to follow-up outpatient with NSGY team. Infectious disease followed the patient. Patient to continue vancomycin. Repeat blood cultures NGTD. Plan for 6 weeks of antibiotics. S/p PICC placement Stable chronic problems affecting care, new non-acute discharge diagnoses: Past Medical History: Diagnosis Date Anemia Arthritis Brain bleed ([facility]) 2021 Diverticulitis Gastric ulcer Leg fracture, right Right arm fracture Seizures ([facility]) 2013 with first craniotomy- while in hospital- none since Thoracic spine fracture ([facility]) Procedures: PICC insertion, LEFT CRANIOTOMY FOR REMOVAL OF INFECTED BONE FLAP (Head) Hospital Course: See discharge diagnoses list above and medication adjustments below in med rec.The patient is discharged in improved and stable condition. Consults: IP CONSULT TO INFECTIOUS DISEASES PHARMACY TO DOSE VANCO INPATIENT CONSULT TO CONTACT [facility] [facility] [employer] [facility] IP CONSULT TO PROCEDURE TEAM Discharge Instructions: Diet: Dietary Orders (From admission, onward) Start Ordered 06/27/24 1339 Adult diet Regular Diet effective now Question: Diet type Answer: Regular 06/27/24 1339 Activity: as tolerated Recommended Outpatient Tests: Disposition: Patient discharged in stable condition to SNF . Greater than 31 minutes spent discharging the patient and coming up with patient discharge plan. Vitals: BP 120/59 Pulse 82 Temp 36.4 ?C (97.5 ?F) (Temporal) Resp 16 Ht 5' 7.01 (1.702 m) Wt 171 lb (77.6 kg) SpO2 100% BMI 26.78 kg/m? Pulse Ox: SpO2 Av.6 % Min: 93 % Max: 100 % Supplemental O2: O2 Flow Rate (L/min): 2 L/min Physical Exam Constitutional: Appearance: Normal appearance. HENT: Head: Comments: Left craniotomy incision with yao, CDI Cardiovascular: Rate and Rhythm: Normal rate and regular rhythm. Pulses: Normal pulses. Heart sounds: Normal heart sounds. Abdominal: General: Bowel sounds are normal. Palpations: Abdomen is soft. Musculoskeletal: Comments: Left IJ PICC+ Skin: Capillary Refill: Capillary refill takes less than 2 seconds. Neurological: General: No focal deficit present. Mental Status: She is alert and oriented to person, place, and time. Psychiatric: Mood and Affect: Mood normal. LABS: Recent Labs 07/02/24 0056 NA 139 K 4.1 CL 108* CO2 25 BUN 14 CREATININE 0.61 GLUCOSE 104 CALCIUM 8.9 Recent Labs 07/02/24 0056 WBC 6.2 RBC 3.79* HGB 11.1* HCT 35.4 MCV 93.4 MCH 29.3 MCHC 31.4 RDW 14.0 PLT 159 MPV 10.5 Discharge Medications: Medication List START taking these medications mupirocin 2 % ointment Commonly known as: Bactroban Apply topically 2 times daily for 5 days. sennosides 8.6 MG tablet Commonly known as: Senokot Take 1 tablet (8.6 mg) by mouth daily for 5 days. CHANGE how you take these medications acetaminophen 500 MG tablet Commonly known as: Tylenol Take 2 tablets (1,000 mg) by mouth every 8 hours for 5 days. What changed: medication strength how much to take when to take this CONTINUE taking these medications baclofen 10 MG tablet Commonly known as: Lioresal CLARITIN PO pantoprazole 40 MG EC tablet Commonly known as: ProtoNix TURMERIC PO VITAMIN B COMPLEX PO vitamin C 500 MG tablet VITAMIN D PO ASK your doctor about these medications hyoscyamine 0.125 MG tablet Commonly known as: Luis Daniel Gill Where to Get Your Medications These medications were sent to [facility] [address] [place], [place] [address] [address] Hours: Sunday to Sunday 10 am to 6 pm acetaminophen 500 MG tablet mupirocin 2 % ointment sennosides 8.6 MG tablet Recommended Follow-up: Jim Barcenas MD [address] [facility] [id number] Follow up 07/14/2024 at 9:30 AM for staple removal Mary Smith [address] [facility] [id number] Follow up Complexity of Follow up: [] Moderate Complexity: follow up within 7-14 calendar days (80731) [x] Severe Complexity: follow up within 7 calendar days (78378) Follow up Testing, Pending results or Referrals at Transitional Care Visit: [x] yes [] no Instructions to MA: Please call patient on day after discharge (must document patient contacted within 2 business days of discharge). Follow up questions for MA: 1. Did you get medications filled and taking them as instructed from discharge? 2. Are you following your discharge instructions from your hospital stay? 3. Please confirm patient is scheduled for a follow up appointment within the above time frame. Signed: Ирина Gonzalez NP Division of Hospitalist Medicine [employer] [facility] 07/03/2024, 11:16 AM NURSING NOTE Observed: 07/03/2024 10:35 AM Status: COMPLETED Source: [facility] Pt tolerated procedure well, vital signs stable. Pt will be transferred back to [facility]. [id number] Observed: 07/03/2024 10:31 AM Status: COMPLETED Source: [facility] Getting a PICC line placed t john then will be discharged to [facility]. . ING NOTE Observed: 07/03/2024 10:25 AM Status: COMPLETED Source: [facility] Patient arrived from [facility], Dr. Ordaz was in to speak with the patient regarding PICC placement, consent was obtained. Patient was placed supine on exam table, prepped and draped in sterile fashion. Telemetry monitors placed, vitals monitored. PROGRESS NOTE Observed: 07/03/2024 9:34 AM Status: COMPLETED Source: [employer] [facility] Nutrition Assessment Type and Reason for Visit: Reassess Nutrition Recommendations/Plan: Continue with regular diet. Per MNT protocol will discontinue Ensure Plus BID- will resume once patient is able to consume all of bottles (6) in her room. She reports she can drink one per day. Please continue to document % of meals and oral nutrition supplement consumed daily on flow sheets. Monitor weight, labs, I/O, skin assessment, and overall nutritional status. RD will follow up weekly. Malnutrition Assessment: Malnutrition Status: At risk for malnutrition (Comment) Context: Acute Illness Findings of the 6 clinical characteristics of malnutrition: Energy Intake: Mild decrease in energy intake (Comment) (Cam reports some meals she eats better than others. Based on interview, she is ordering a variety of foods. Flow sheets indicate that patient consumed 76-100% x 4 meals.) Weight Loss: Greater than 2% over 1 week (3.9% weight loss x 4 days) Body Fat Loss: Unable to assess (Deferred NPFE at this time as patient is leaving unit.) Muscle Mass Loss: Unable to assess Fluid Accumulation: No significant fluid accumulation (per chart) [employer] Strength: Not Performed Nutrition Assessment: Per chart: 74-year-old female with history of cholangitis. E coli/ C perfringens BSI managed through [facility] in 10/2023 (cipro/flagyl) with PTHC and ultimately internal biliary stent, hx ESBL Klebsiella BSI/ cholangitis (ertapenem 08/2023), hx Ortega-en-Y gastric bypass (2021), hx SDH remotely (2013 or 2014) with previous craniotomy--> developed an acute SDH in 09/2021 requiring joanie hole drainage by Dr. Barcenas along with MMA embolization. She presented to Neurosurgery outpatient in 04/2024 with an area of the L forehead with exposed metal with bleeding. A CT was ordered given it was not in the region of the 2021 procedures. It showed craniotomy flaps on the right and left; + hardware for the L craniotomy flap appears very close to the level of skin. She underwent L craniectomy of all hardware and bone flap on 06/[address] Barcenas. The underside of the scalp had purulent material that was cultured. Epidural space, joanie hole, and bone flap were all sent for cx. She received clindamycin perioperatively. Cultures growing MRSA. Plan for PICC line placement and 6 weeks of IV antibiotics. RD spoke with patient this am. She reports eating 100% of her breakfast this am (Portuguese toast and eggs with cheese). Patient consumed 76-100% x 4 meals based on flow sheets. Per patient, some meals she eats better than others since admission. She has been ordering a variety of menu items that include protein (ie eggs, southwest chicken bowl, chicken sandwich, burger). Likes fruit and vegetables. There are 6 bottles of unopened Ensure in room. Patient feels that she can drink one per day. She anticipates discharge today and ok for RD to discontinue supplement order. She will consume Ensure that is in her room. Patient likes chocolate Ensure, but too sweet- prefers vanilla at this time. Milk causes gas, but she states tolerating Ensure. Estimated Daily Nutrient Needs: Energy Requirements Based On: Kcal/kg Weight Used for Energy Requirements: [place] Weight for Energy Calculation (kg): 61.3 kg Total Energy Requirements (kcals/day): 25-30 kcals/kg = 6841-7859 kcals/day Weight Used for Protein Requirements: [place] Weight in Kg Used for Protein Requirements: 61.3 kg Estimated Total Protein (g/day): 1.1-1.3g protein/kg IBW = 67-80g protein/day Estimated Daily Total Fluid (ml/day): 1532 mls Nutrition Related Findings: Brennon = 19, abdomen soft, active bowel sounds, +upper dentures, BM on 07/01, no edema, I/O: +1448.5 (since admit) Wound Type: Surgical Incision BMP: Recent Labs 07/02/24 0056 NA 139 K 4.1 CL 108* CO2 25 BUN 14 CREATININE 0.61 GLUCOSE 104 CALCIUM 8.9 MG 1.6 PHOS 4.3 Medications: acetaminophen, 1,000 mg, Oral, q8h enoxaparin, 40 mg, SubCUTAneous, Daily mupirocin, , Nasal, BID pantoprazole, 40 mg, Oral, Daily polyethylene glycol (PEG) 3350, 17 g, Oral, Daily sennosides, 1 tablet, Oral, BID sodium chloride 0.9%, 5-40 mL, IntraVENous, 2 times per day vancomycin, 1,000 mg, IntraVENous, q12h Current Nutrition Therapies: Adult diet Regular Current Oral Intake Average Meal Intake: 76-100% (x 4 meals per flow sheets) Average Supplements Intake: Unable to assess Anthropometric Measures: Height: 170.2 cm (5' 7.01) Current Body Weight: 77.6 kg (171 lb) (07/03/24) Weight Source: Not Specified Admission Body Weight: 80.7 kg (178 lb) (06/29/24) [place] Body Weight (lbs) (Calculated): 135 lbs [place] Body Weight (Kg) (Calculated): 61 kg % [place] Body Weight (Calculated): 130 % BMI (kg/m2) (Calculated): 26.8 BMI Categories: Overweight (BMI 25.0-29.9) Nutrition Interventions: Nutrition Education/Counseling: No recommendation at this time Coordination of Nutrition Care: Continue to monitor while inpatient Goals: Previous Goal Met: Progressing toward Goal(s) Goals: PO intake 75% or greater, by next RD assessment Nutrition Monitoring and Evaluation: Behavioral-Environmental Outcomes: None Identified Food/Nutrient Intake Outcomes: Food and Nutrient Intake, Supplement Intake Physical Signs/Symptoms Outcomes: Biochemical Data, Chewing or Swallowing, GI Status, Fluid Status or Edema, Meal Time Behavior, Nutrition Focused Physical Findings, Skin, Weight Discharge Planning: Continue Oral Nutrition Supplement, Continue current diet Lovely Muhammad RD Contact: *[phone] PROGRESS NOTE Observed: 07/03/2024 8:13 AM Status: COMPLETED Source: [facility] Pharmacy to Dose Vancomycin - Progress Note Lab Results Component Value Date CREATININE 0.61 07/02/2024 BUN 14 07/02/2024 WBC 6.2 07/02/2024 VANCOTROUGH 14.3 06/29/2024 Doses, serum creatinine, and vancomycin levels interfaced automatically to [employer] and data has been analyzed and interpreted. Infectious Diagnosis: osteomyelitis Est CrCl: 100.5 mL/min (Cockcroft-Gault) Assessment: Current regimen vancomycin 1000 mg every 12 hours (12.9 mg/kg) Predicted AUC = 518 mg/L*hr (goal 400-600 mg/L*hr) PAUC = 92% (probability that AUC is >400 mg/L*hr) Pconc = 8% (probability that Ctrough is above 20 mcg/mL (toxicity)) Plan: Is the current dose therapeutic? [x] Yes - obtain next level on 07/04. Trend serum creatinine. Trend AUC using Bayesian Modeling. Orders placed. DATE: 07/03/24 TIME: 8:13 AM Javier MarcosD Clinical Pharmacist Available via Secure Chat 30 Observed: 07/02/2024 9:34 PM Status: COMPLETED Source: [employer] [facility] Problem: Pain - Adult Goal: Verbalizes/displays adequate comfort level or baseline comfort level Outcome: ProgressingProblem: Safety - Adult Goal: Free from fall injury Outcome: Progressing NURSING NOTE Observed: 07/02/2024 8:00 PM Status: COMPLETED [facility] Notified via perfect serve t hat CXR continues to show that PICC is malpositioned. PICC team included in chat. New orders placed for PICC placement. Do not use placed on line. Curos caps placed. XR CHEST 1 VIEW Observed: 07/02/2024 7:42 PM Status: F Source: [employer] [facility] Patient Name: CARLA SANCHEZ : 1950 Exam Date/Time: 07/02/2024 19:32 Procedure: XR CHEST 1 VIEW Ordering Provider: NICOLAS RYAN Reason For Exam: PICC LINE REPOSITIONING SINGLE FRONTAL VIEW OF THE CHEST CLINICAL INDICATION: PICC LINE REPOSITIONING TECHNIQUE: Single frontal view of the chest COMPARISON: Earlier today FINDINGS: Unchanged appearance of LEFT PICC catheter, extending up the LEFT jugular vein, distal tip not included on study. Heart size normal. No acute infiltrates. No pleural effusion or pneumothorax. IMPRESSION: 1. Unchanged appearing malpositioned LEFT PICC catheter, tip of which is not included on the study. CRITICAL TEST RESULT COMMUNICATION: Notification of these findings was made to MICHOACANO Hernández via [facility] Secure Messaging on 07/02/2024 7:41 PM EST. Report Dictated on Electronically Signed By: Manuel Lockhart MD Electronically Signed Date/Time: 07/02/2024 7:42 PM EST XR CHEST 1 VIEW Observed: 07/02/2024 5:56 PM Status: F Source: [facility] Patient Name: CARLA SANCHEZ : 1950 Exam Date/Time: 07/02/2024 17:40 Procedure: XR CHEST 1 VIEW Ordering Provider: OTT GWENDOLYN Reason For Exam: recheck picc tip after powerflush INDICATION: LEFT PICC line. VIEWS: Chest portable-one image COMPARISON: 07/02/2024 FINDINGS: The left PICC line tip projects in the left IVC along the lower neck and excluded from [id number]. The trachea is midline. The heart is not enlarged. The lungs are clear. IMPRESSION: No change in positioning of LEFT PICC line. Recommend repositioning. Report Dictated on Electronically Signed By: Saira House MD Electronically Signed Date/Time: 07/02/2024 5:56 PM EST XR CHEST 1 VIEW Observed: 07/02/2024 3:24 PM Status: F Source: [facility] Patient Name: CARLA SANCHEZ : 1950 Exam Date/Time: 07/02/2024 15:17 Procedure: XR CHEST 1 VIEW Ordering Provider: NICOLAS RYAN Reason For Exam: PICC LINE PLACEMENT EXAM: XR Chest, 1 View CLINICAL INDICATION: PICC LINE PLACEMENT TECHNIQUE: Frontal view of the chest. COMPARISON: Chest radiograph from 09/06/2021 FINDINGS: LUNGS AND PLEURAL SPACES: Unremarkable. No consolidation. No pneumothorax. HEART: Unremarkable. No cardiomegaly. MEDIASTINUM: Unremarkable. Normal mediastinal contour. BONES/JOINTS: Degenerative change of the spine. No acute fracture. TUBES, LINES AND DEVICES: Left upper extremity PICC line extends cephalad into the left neck, with the tip located above the [id number]. IMPRESSION: Left upper extremity PICC line extends cephalad into the left neck. Recommend repositioning. CRITICAL TEST RESULT COMMUNICATION: A message was sent via [employer] to Dr. Nuñez on 07/02/2024 at 3:23 PM EST. Report Dictated on Electronically Signed By: Lisa Brasher MD Electronically Signed Date/Time: 07/02/2024 3:24 PM EST PROGRESS NOTE Observed: 07/02/2024 3:00 PM Status: COMPLETED Source: [facility] - Infectious Diseases Attending Progress Note Subjective: Following for MRSA cranial flap infection s/p hemicraniectomy for exposed hardware Awaiting SNF placement. No headaches. Tolerating diet. Awaiting PICC today. Vitals: Patient Vitals for the past 24 hrs: BP Temp Temp src Pulse Resp SpO2 Weight 07/02/24 1404 107/74 36.3 ?C (97.3 ?F) Temporal 99 16 96 % -- 07/02/24 0639 109/65 (!) 35.8 ?C (96.5 ?F) Temporal 83 16 98 % -- 07/02/24 0506 -- -- -- -- -- -- 81.9 kg (180 lb 8.9 oz) 07/02/24 0223 105/62 36.8 ?C (98.3 ?F) Temporal 81 16 94 % -- 07/01/24 2211 96/70 36.2 ?C (97.2 ?F) Temporal (!) 45 15 96 % -- 07/01/24 1831 102/53 36.3 ?C (97.3 ?F) Temporal 82 18 94 % -- Physical Exam: Physical Exam Vitals and nursing note reviewed. Constitutional: Appearance: She is ill-appearing. HENT: Head: Comments: L craniectomy site is healthy with sunken defect; + sutures Nose: Nose normal. Mouth/Throat: Mouth: Mucous membranes are moist. Pharynx: Oropharynx is clear. Eyes: General: No scleral icterus. Extraocular Movements: Extraocular movements intact. Cardiovascular: Rate and Rhythm: Normal rate and regular rhythm. Pulmonary: Effort: Pulmonary effort is normal. No respiratory distress. Breath sounds: No wheezing. Abdominal: General: There is no distension. Palpations: Abdomen is soft. Tenderness: There is no abdominal tenderness. Musculoskeletal: Right lower leg: No edema. Left lower leg: No edema. Comments: + arthritic joint changes; no synovitis or crepitance of any limb Skin: General: Skin is warm and dry. Coloration: Skin is not jaundiced. Findings: No rash. Neurological: Mental Status: She is alert and oriented to person, place, and time. Psychiatric: Mood and Affect: Mood normal. Thought Content: Thought content normal. Labs: Recent Labs 06/30/24 0602 07/02/24 0056 NA 140 139 K 3.8 4.1 CL 108* 108* CO2 BUN 8* 14 CREATININE 0.56* 0.61 GLUCOSE 97 104 CALCIUM 8.4* 8.9 Recent Labs 06/30/24 0602 07/02/24 0056 WBC 7.6 6.2 HGB 12.1 11.1* HCT 36.7 35.4 PLT 123* 159 LYMPHOPCT 15.0 22.3 MONOPCT 9.8 9.1 BASOPCT 0.1 0.3 NEUTROABS 5.4 3.8 Micro: 06/29- blood cx- NGTD 06/27- brain biopsy cx- MRSA (no orgs on stain) 06/27- bone OR cx- MRSA (no orgs on stain) 06/27- other scalp OR cx- MRSA (no orgs on stain) 06/27- swab scalp cx- MRSA (no orgs on stain) 06/27- swab scalp cx- MRSA (no orgs on stain) Lines: PIV Radiography/Echo/Other: 06/28- CT brain- There are postsurgical changes of left hemicraniectomy. Along the inferior aspect of the craniectomy defect is a extra-axial collection measuring 3.3 x 0.8 x 2.7 cm. There is left frontal pneumocephalus. Ventricles and sulci are normal in size and configuration for age. There is a trace [id number] midline shift measuring [address] evidence of an acute large territorial infarction. Imaged paranasal sinuses and mastoid air cells are well aerated. Right-sided craniotomy noted with plate and screws. IMPRESSION: 1. Status post left hemicraniectomy with small extra-axial hematoma within the craniectomy defect measuring up to 3.3 x 0.8 cm. There is trace left to right midline shift measuring 3 mm. 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 Stop date 08/08/24. OPAT completed and scanned into media tab. PICC placement today. Await placement. D/w TCC. Will follow. Total time of 50 minutes on this day of encounter spent on, but not limited to review of tests, medical records , complex history , counseling and education (patient, family member, caregiver), ordering medications, tests, and procedures, and care coordination, arrangement of outpatient antimicrobial therapy, post-hospitalization therapy and follow-up. Sayra Honeycutt MD PROCEDURE NOTE Observed: 07/02/2024 3:00 PM Status: COMPLETED Source: [facility] PICC Insertion/Replacement Date/Time: 07/02/2024 3:01 PM Performed by: Marielena Ott MD Authorized by: Marielena Ott MD Consent: The indications, risks, benefits, alternatives to the procedure were explained to the patient/surrogate decision maker and their questions answered. Consent was obtained to proceed with the procedure. Timeout: Completed immediately prior to the start of the procedure which included verification of the correct patient, correct site and agreement on the procedure to be done. Indications: Indications: Long-term antibiotics and other (see comment) (MRSA cranial flap infection) Indications comment: MRSA OM cranial flap Anesthetic: Local anesthetic used: lidocaine without epinephrine Procedure details: Preparation: Skin prepped with chlorhexidine Skin prep agent dried: Skin prep agent completely dried prior to procedure Sterile barriers: All five maximal sterile barriers used - gloves, gown, cap, mask and large sterile sheet Hand hygiene: Hand hygiene performed prior to central venous catheter insertion Sterile technique: Sterile technique maintained throughout procedure. Site prior to insertion: Benign Procedure type: Insertion Orientation: left Location: Basilic Catheter type: Double lumen Catheter size: 5 Fr Lot #: [id number] Trimmed at (cm): 44 Inserted at (cm): 44 Ultrasound guidance: Yes Post-procedure: Post-procedure: Antimicrobial dressing applied and securement device Description/Findings: Flushes easily and blood returned Estimated blood loss: < 5 mL Specify complication(s): No apparent complications Follow-up chest x-ray: Ordered General Comments: PICC tip positioned cephalad into LIJ vein, attempt to powerflush into correct position not successful. Under sterile field/technique long guidewire used, obtained ventricular ectopy, PICC fed over wire with good flush/draw and recurrent ectopy when wire refed - however, line remained in LIJ on cxr. Order for IR to reposition. 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 Patient is s/p left craniotomy for removal of infected bone flap and exposed hardware. Neurosurgery team has signed off at this point. Patient to follow-up outpatient with NSGY team. Infectious disease following-appreciate recommendations. Patient to continue vancomycin. Repeat blood cultures NGTD. Plan for 6 weeks of antibiotics noted. Infection disease recommends vancomycin, for 6 weeks. She will need PICC line. Urinary neurosurgery recommends no further neurosurgical intervention. Okay to DC from neurosurgery standpoint. Cultures growing MRSA Anticipate discharge to retirement facility on July 03 PROGRESS NOTE Observed: 07/02/2024 12:55 PM Status: COMPLETED Source: [facility] Hospitalist Progress Note 07/02/2024 Subjective: Admit Date: 06/27/2024 PCP: MARY SMITH Room#: W3-323/[id number] B BRIEF HOSPITAL COURSE: Carla is a 74-year-old female with past medical history of craniotomy in past, diverticulitis, PUD, anemia, arthritis, seizures, gastric ulcer who underwent left craniotomy for removal of infected bone flap and exposed hardware on 06/[address] Barcenas. Postoperatively, patient was admitted under ICU. Patient was started on broad-spectrum antibiotics -vancomycin and cefepime. Or cultures noted to be positive for MRSA. Cefepime stopped on 06/29. Infectious disease team following. Patient transferred to medical floor on 06/29. Interval History: Seen and examined, sitting up in chair. Discussed plan for PICC line placement today. Remains afebrile/no chills. No chest pain, shortness of breath, abdominal pain. Denies any headaches. Plan of care discussed with the patient and all questions answered. Adult diet Regular 24HR INTAKE/OUTPUT: No intake or output data in the 24 hours ending 07/02/24 1255 Past Medical History: Past Medical History: Diagnosis Date Anemia Arthritis Brain bleed ([facility]) 2013, 2021 Diverticulitis Gastric ulcer Leg fracture, right Right arm fracture Seizures ([facility]) 2013 with first craniotomy- while in hospital- none since Thoracic spine fracture ([facility]) LABS: CBC: Recent Labs 06/30/24 0602 07/02/24 0056 WBC 7.6 6.2 RBC 3.99 3.79* HGB 12.1 11.1* HCT 36.7 35.4 MCV 92.0 93.4 RDW 14.3 14.0 PLT 123* 159 BMP: Recent Labs 06/30/24 0602 07/02/24 0056 NA 140 139 K 3.8 4.1 CL 108* 108* CO2 27 25 BUN 8* 14 CREATININE 0.56* 0.61 GLUCOSE 97 104 CALCIUM 8.4* 8.9 ANIONGAP 5 6 LIVER PROFILE:No results for input(s): AST, ALT, BILITOT, ALKPHOS, PROT in the last 72 hours. No lab exists for component: LABALBU PT/INR: No results for input(s): PROTIME, INR in the last 72 hours. CARDIAC ENZYMES: No results for input(s): TROPONINI in the last 72 hours. Procalcitonin: No results found for: PROCAL COVID-19 PCR: No results for input(s): COVID19 in the last 72 hours. Objective: Vitals: BP 109/65 (BP Location: Left arm, Patient Position: Lying) Pulse 83 Temp (!) 35.8 ?C (96.5 ?F) (Temporal) Resp 16 Ht 5' 7.01 (1.702 m) Wt 180 lb 8.9 oz (81.9 kg) SpO2 98% BMI 28.27 kg/m? Pulse Ox: SpO2 Av % Min: 94 % Max: 98 % Supplemental O2: O2 Flow Rate (L/min): 2 L/min Physical Exam Vitals and nursing note reviewed. Constitutional: Appearance: She is not ill-appearing. HENT: Head: Comments: Left craniotomy incision with yao, CDI Eyes: Pupils: Pupils are equal, round, and reactive to light. Cardiovascular: Rate and Rhythm: Normal rate and regular rhythm. Pulses: Normal pulses. Heart sounds: No murmur heard. Pulmonary: Effort: Pulmonary effort is normal. No respiratory distress. Breath sounds: Normal breath sounds. Abdominal: General: Bowel sounds are normal. There is no distension. Palpations: Abdomen is soft. Musculoskeletal: Right lower leg: No edema. Left lower leg: No edema. Skin: General: Skin is warm and dry. Capillary Refill: Capillary refill takes less than 2 seconds. Neurological: General: No focal deficit present. Mental Status: She is alert. Medications: Scheduled PRN acetaminophen, 1,000 mg, Oral, q8h enoxaparin, 40 mg, SubCUTAneous, Daily mupirocin, , Nasal, BID pantoprazole, 40 mg, Oral, Daily polyethylene glycol (PEG) 3350, 17 g, Oral, Daily sennosides, 1 tablet, Oral, BID sodium chloride 0.9%, 5-40 mL, IntraVENous, 2 times per day vancomycin, 1,000 mg, IntraVENous, q12h PRN medications: baclofen, hydrALAZINE, ipratropium-albuterol, labetalol, naloxone, ondansetron ODT OR ondansetron, oxyCODONE OR oxyCODONE, sodium chloride, sodium chloride 0.9% Continuous Assessment Data: (CAT1) Reviewed 3 or more notes from different specialty or health system (each=1). (CAT1) Reviewed 3 or more labs/studies ordered by another provider not previously counted (each=1, panels count as 1). (CAT2) CT of head reviewed & showed s/p left hemicraniectomy as interpreted by me. 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 Patient is s/p left craniotomy for removal of infected bone flap and exposed hardware. Neurosurgery team has signed off at this point. Patient to follow-up outpatient with NSGY team. Infectious disease following-appreciate recommendations. Patient to continue vancomycin. Repeat blood cultures NGTD. Plan for 6 weeks of antibiotics noted. Plan for PICC line placement today. 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 Plan for PICC line placement today. Will plan for discharge tomorrow. - am labs, replace lytes prn - PT/OT/CM/SW - delirium precautions: increase activity and limit nighttime disturbances - DVT prophylaxis: SCDs and encourage ambulation Complexity: Acute illness or injury posing a threat to life or body function (HIGH). Risk: Admission to hospital-level care was considered or occurred (HIGH). Advance Directive: Full Code Anticipated Discharge - Date - TBD - Location - Home - Pending the following -clinical progress, PICC line placement Total time spent (which include face to face and non face to face encounters) : 65 minutes Extended Emergency Contact Information Primary Emergency Contact: Erica Paige Mobile Relation: Sister Secondary Emergency Contact: Leta Johns Relation: Other Ирина Gonzalez NP Division of Hospitalist Medicine [employer] [phone] Observed: 07/02/2024 12:55 PM Status: COMPLETED Source: [employer] [facility] LABs and OPAT sent to [facility] via [facility] per [facility] request. Await review and response regarding ability to accept. TCC notified. [phone] Observed: 07/02/2024 12:36 PM Status: COMPLETED Source: [facility]CU [facility] accepted pending opat and AB pharmacy , ID to get to [facility] , all information and clinicals and labs tasked for [facility] to send- opat picc info and do 7000 for facility . Doris to be done .. [phone] Observed: 07/02/2024 11:35 AM Status: COMPLETED Source: [facility] [employer] [facility] Updated notes and DC informa tion sent to [facility] via [employer] per [facility] request. Await review and response regarding ability to accept. TCC notified. RESS NOTE Observed: 07/02/2024 8:49 AM Status: COMPLETED Source: [facility] [employer] [facility] Pharmacy to Dose Vancomycin - Progress Note Lab Results Component Value Date CREATININE 0.61 07/02/2024 BUN 14 07/02/2024 WBC 6.2 07/02/2024 VANCOTROUGH 14.3 06/29/2024 Doses, serum creatinine, and vancomycin levels interfaced automatically to [employer] and data has been analyzed and interpreted. Infectious Diagnosis: osteomyelitis Est CrCl: 106 mL/min (Cockcroft-Gault) Assessment: Current regimen vancomycin 1000 mg every 12 hours (12.2 mg/kg) Predicted AUC = 497 mg/L*hr (goal 400-600 mg/L*hr) PAUC = 89% (probability that AUC is >400 mg/L*hr) Pconc = 5% (probability that Ctrough is above 20 mcg/mL (toxicity)) Plan: Is the current dose therapeutic? [x] Yes - obtain next level on 07/04. Trend serum creatinine. Trend AUC using Bayesian Modeling. Orders placed. DATE: 07/02/24 TIME: 8:49 AM Yelitza Cantor, JavierD Clinical Pharmacist Available via Secure Chat [phone] Observed: 07/02/2024 6:46 AM Status: COMPLETED Source: [facility] [employer] [facility] Discussed wit sister and pat ient and referrals sent as noted can NOT afford the 300 per week for the home ivab she is agreeable to snf referrals sent and [facility] accept , [facility] , they are still reviewing , goal is PICC today finalize AB OPAT , and doris today and then discharge later today vs 24 hours . Tcc will cont to work on this . Messaged to the accepting facilities today and waiting on responses no orders for picc yet per IF have the OK to place . ESIUM Collected: 12:56 AM Status: F Source: [facility] [employer] [facility] TYPE CODE TESTS RESULT OUT OF RANGE REFERENCE UNITS LAB [id number] MAGNESIUM 1.6 1.6-2.6 mg/dL Result Comment: ORDER COMMEN TS: Higher values can be expected in females during menses. Performed By: #### [id number], L AB15, [id number] #### Prize Jacker: ARTURO TANNER ([phone]) [facility] ([address] BASIC METABOLIC PANEL Collected: 2024 12:56 AM Status: F Source: [facility] TYPE CODE TESTS RESULT OUT OF RANGE REFERENCE UNITS LAB [id number] SODIUM 139 136-145 mmol/L LAB [id number] POTASSIUM 4.1 3.5-5.1 mmol/L Result Comment: Plasma potas sium values may be up to 0.5 mmol/L lower than serum values. LAB [id number] CHLORIDE 108 High 98-107 mmol/L LAB [id number] CARBON DIOXIDE 25 23-31 mmol/L LAB 5501638 UREA NITROGEN 14 9-23 mg/dL LAB [id number] CREATININE 0.61 0.57-1.11 mg/dL LAB [id number] GLUCOSE 104 82-115 mg/dL LAB [id number] CALCIUM 8.9 8.8-10.0 mg/dL LAB [id number] ANION GAP (VALLE, CALCULATED) 6 3-13 mmol/L LAB [id number] GLOMERULAR FILTRATION RATE ML/MIN/1.73 SQ M.PREDICTED >90.0 >60.0 mL/min/1. 73m*2 Result Comment: Calculation based on the Chronic Kidney Disease Epidemiology Collaboration (CKD-EPI) equation refit without adjustment for race Performed By: #### [id number], L AB15, [id number] #### Prize Jacker: ARTURO TANNER ([id number]) [facility] ([facility]) [address] [place] [address] PHOSPHORUS Collected: 12:56 AM Status: F Source: [facility] TYPE CODE TESTS RESULT OUT OF RANGE REFERENCE UNITS LAB [id number] PHOSPHORUS 4.3 2.3-4.7 mg/dL Performed By: #### [id number], L AB15, [id number] #### Prize Jacker: ARTURO TANNER ([id number]) [facility] ([facility] [address] [place] [address] CBC WITH AUTO DIFFERENTIAL Collected: 0 07/02/2024 12:56 AM Status: F Source: [facility] TYPE CODE TESTS RESULT OUT OF RANGE REFERENCE UNITS LAB [id number] WBC 6.2 3.6-10.7 10*3/uL LAB 2250343 RBC 3.79 Low 3.80-5.20 10*6/uL LAB 3480975 HEMOGLOBIN 11.1 Low 11.7-16.0 g/dL LAB 1452272 HEMATOCRIT 35.4 35.0-47.0 % LAB 4487154 MCV 93.4 77.0-99.0 fL LAB 0125117 MCH 29.3 26.0-34.0 pg LAB 3530979 MCHC 31.4 30.5-36.0 % LAB 7905849 RDW 14.0 11.5-15.0 % LAB 6048729 PLATELET COUNT 159 140-440 10*3/uL LAB 1713610 MPV 10.5 9.0-12.7 fL LAB 254 NRBC 0.0 0.0-2.0 /100 WBCs LAB 9974913 NEUTROPHILS RELATIVE 61.7 38.0-82.0 % LAB 1051082 LYMPHOCYTES RELATIVE 22.3 15.0-45.0 % LAB 4416041 MONOCYTES RELATIVE 9.1 5.0-13.0 % LAB 9755052 EOSINOPHILS RELATIVE 6.3 High 0.0-6.0 % LAB 8272708 BASOPHILS RELATIVE 0.3 0.0-2.0 % LAB 2150241 IMMATURE GRANS % 0.3 0.0-2.0 % LAB 3407593 NEUTROPHILS ABSOLUTE 3.8 1.8-7.5 10*3/uL LAB 7859916 LYMPHOCYTES ABSOLUTE 1.4 1.0-4.3 10*3/uL LAB 3336425 MONOCYTES ABSOLUTE 0.6 0.0-0.9 10*3/uL LAB 6563847 EOSINOPHILS ABSOLUTE 0.4 0.0-0.5 10*3/uL LAB 6254757 BASOPHILS ABSOLUTE 0.0 0.0-0.2 10*3/uL LAB 093384 IMMATURE GRANS ABSOLUTE 0.0 <0.1 10*3/uL Performed By: #### [id number] # ### Prize Jacker: ARTURO TANNER ([phone]) [facility] ([facility]) [address] [place] [address] PROGRESS NOTE Observed: 07/01/2024 9:06 PM Status: COMPLETED Source: [facility] [employer] [facility] - Infectious Diseases Attending Progress Note Subjective: Following for MRSA cranial flap infection s/p hemicraniectomy for exposed hardware Transferred out of ICU. Afebrile. Plans for SNF for IV abx given coverage issues. Vitals: Patient Vitals for the past 24 hrs: BP Temp Temp src Pulse Resp SpO2 07/01/24 1831 102/53 36.3 ?C (97.3 ?F) Temporal 82 18 94 % 07/01/24 1341 135/60 36 ?C (96.8 ?F) Temporal 78 20 98 % 07/01/24 0929 126/88 36.3 ?C (97.3 ?F) Temporal 82 18 96 % 07/01/24 0525 114/55 36.3 ?C (97.4 ?F) Temporal 78 16 97 % 07/01/24 0118 100/68 -- -- 67 -- 93 % 07/01/24 0117 (!) 99/46 36.4 ?C (97.5 ?F) Temporal 67 18 94 % 06/30/24 2116 109/64 36.2 ?C (97.1 ?F) Temporal 70 18 95 % Physical Exam: Physical Exam Vitals and nursing note reviewed. Constitutional: Comments: Comfortable Labs: Recent Labs 06/29/24 0009 06/30/24 0602 NA 140 140 K 4.0 3.8 CL 109* 108* CO2 BUN 9 8* CREATININE 0.61 0.56* GLUCOSE 120* 97 CALCIUM 8.2* 8.4* Recent Labs 06/29/24 0009 06/30/24 0602 WBC 8.9 7.6 HGB 10.8* 12.1 HCT 32.9* 36.7 PLT 103* 123* LYMPHOPCT 10.6* 15.0 MONOPCT 8.0 9.8 BASOPCT 0.2 0.1 NEUTROABS 7.0 5.4 Micro: 06/29- blood cx- NGTD 06/27- brain biopsy cx- MRSA (no orgs on stain) 06/27- bone OR cx- MRSA (no orgs on stain) 06/27- other scalp OR cx- MRSA (no orgs on stain) 06/27- swab scalp cx- MRSA (no orgs on stain) 06/27- swab scalp cx- MRSA (no orgs on stain) Lines: PIV Radiography/Echo/Other: 06/28- CT brain- There are postsurgical changes of left hemicraniectomy. Along the inferior aspect of the craniectomy defect is a extra-axial collection measuring 3.3 x 0.8 x 2.7 cm. There is left frontal pneumocephalus. Ventricles and sulci are normal in size and configuration for age. There is a trace [id number] midline shift measuring [address] evidence of an acute large territorial infarction. Imaged paranasal sinuses and mastoid air cells are well aerated. Right-sided craniotomy noted with plate and screws. IMPRESSION: 1. Status post left hemicraniectomy with small extra-axial hematoma within the craniectomy defect measuring up to 3.3 x 0.8 cm. There is trace left to right midline shift measuring 3 mm. 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 Ok for PICC line placement tomorrow. Will need 6 weeks of IV abx. Plans for placement noted given need for BID dosing of IV abx/ coverage. Will finalize OPAT closer to discharge when steady state dosing is achieved. Will follow. Based on diagnoses and management, combination of acute and chronic problems, exacerbations and/or acuity, this visit should be considered to be of low complexity. Sayra Honeycutt MD [phone] Observed: 07/01/2024 2:16 PM Status: COMPLETED Source: [facility] [employer] [facility] Pt discussed 07-01-24 during interdisciplinary rounds. Pt admitted due to a craniotomy surgery. Pt will need a PICC line and 6 weeks of IV antibiotics. Discharge plan is a retirement facility once medically stable. Pt and Pt's sister Erica are agreeable. No facility of choice at this time. SW to follow for transportation assistance. No needs anticipated but SW available as needs arise. [phone] Observed: 07/01/2024 1:08 PM Status: COMPLETED [facility]. Await review and response regarding ability to accept. TCC notified. [phone] Observed: 07/01/2024 11:40 AM Status: COMPLETED Source: [facility] Tcc spoke to [facility] and they spo ke to patient can NOT afford the 300 $ per week cost - has medicare a/ b and AARP . No medicaid. Called to sister karthikeyan and she is updated as well. And can not assist with copay either. List for [facility] and [facility] printed and sister gave suggestions - spoke to patient as well. referrals to [facility] [place] [place] too and [place] [facility] [place] need [place]ab bid vanc for 6 weeks medicare . Tx team is aware . HOME is not an option due to cost and POP not an option per ID must be BID , not able to change plan . . RESS NOTE Observed: 07/01/2024 9:38 AM Status: COMPLETED Source: [facility] Pharmacy to Dose Vancomycin - Progress Note Lab Results Component Value Date CREATININE 0.56 (L) 06/30/2024 BUN 8 (L) 06/30/2024 WBC 7.6 06/30/2024 VANCOTROUGH 14.3 06/29/2024 Doses, serum creatinine, and vancomycin levels interfaced automatically to [employer] and data has been analyzed and interpreted. Infectious Diagnosis: Bone & joint infection / Sepsis Est CrCl: 116.8 mL/min (Cockcroft-Gault) Assessment: Current regimen vancomycin 1000 mg every 12 hours (12.1 mg/kg) Predicted AUC = 478 mg/L*hr (goal 400-600 mg/L*hr) PAUC = 84% (probability that AUC is >400 mg/L*hr) Pconc = 3% (probability that Ctrough is above 20 mcg/mL (toxicity)) Plan: Is the current dose therapeutic? [x] Yes - obtain next level by 07/06/24 unless predicted AUC is sub-/supra-therapeutic or change in serum creatinine. Trend serum creatinine. Trend AUC using Bayesian Modeling. Orders placed. DATE: 07/01/24 TIME: 9:35 AM Torres Junior PharmD Clinical Pharmacist Available via Secure Chat [phone] Observed: 07/01/2024 9:28 AM Status: COMPLETED Source: [facility] MAGDA cost/coverage response: Medicare A&B/AARP Supplement/Part D eff: 06/04/2024, self pay for daily drip pumper/supplies ($35/day or $245/wk with 1 med) The Part D test claim for Vanco 1GM Q24 came back as $50.41 for 7 days. HIPAA compliant voice message left for the patient regarding the cost. Awaiting call back. HIPAA compliant voice message left for patient's sister, Erica. [facility] contact information provided. Spoke with patient via room phone regarding associated cost for her home antibiotics. Patient states she is unable to afford the cost of supplies/antibiotic weekly. I explained I would reach out to her new HCL, Taylor who would discuss other options with her TCC. She stated she understood. [phone] Observed: 07/01/2024 9:11 AM Status: COMPLETED Source: [facility] Transfer from , per ID ne ed 6 weeks ivab, PICC line, and OPAT - [facility] following for cost of ivab , sister will be teachable hearing healthcare practitioner per [place] [facility] following- medicare A/B s/p removal of infected bone flap . Will need 6 weeks of IV abx and PICC line placement after blood cx are sterile.. done 06/29 will discuss in IDR RESS NOTE Observed: 07/01/2024 9:00 AM Status: COMPLETED Source: [facility] Hospitalist Progress Note 07/01/2024 Subjective: Admit Date: 06/27/2024 PCP: MARY SMITH Room#: W3-323/[id number] B BRIEF HOSPITAL COURSE: Carla is a 74-year-old female with past medical history of craniotomy in past, diverticulitis, PUD, anemia, arthritis, seizures, gastric ulcer who underwent left craniotomy for removal of infected bone flap and exposed hardware on 06/[address] Barcenas. Postoperatively, patient was admitted under ICU. Patient was started on broad-spectrum antibiotics -vancomycin and cefepime. Or cultures noted to be positive for MRSA. Cefepime stopped on 06/29. Infectious disease team following. Patient transferred to medical floor on 06/29. Interval History: Seen and examined, sitting up in chair. No acute issues overnight. Adult diet Regular 24HR INTAKE/OUTPUT: Intake/Output Summary (Last 24 hours) at 07/01/2024 1042 Last data filed at 06/30/2024 1820 Gross per 24 hour Intake 1582 ml Output -- Net 1582 ml Past Medical History: Past Medical History: Diagnosis Date Anemia Arthritis Brain bleed ([facility]) 2013, 2021 Diverticulitis Gastric ulcer Leg fracture, right Right arm fracture Seizures ([facility]) 2013 with first craniotomy- while in hospital- none since Thoracic spine fracture ([facility]) LABS: CBC: Recent Labs 06/29/24 0009 06/30/24 0602 WBC 8.9 7.6 RBC 3.59* 3.99 HGB 10.8* 12.1 HCT 32.9* 36.7 MCV 91.6 92.0 RDW 14.4 14.3 PLT 103* 123* BMP: Recent Labs 06/29/24 0009 06/30/24 0602 NA 140 140 K 4.0 3.8 CL 109* 108* CO2 BUN 9 8* CREATININE 0.61 0.56* GLUCOSE 120* 97 CALCIUM 8.2* 8.4* ANIONGAP 6 5 LIVER PROFILE:No results for input(s): AST, ALT, BILITOT, ALKPHOS, PROT in the last 72 hours. No lab exists for component: LABALBU PT/INR: No results for input(s): PROTIME, INR in the last 72 hours. CARDIAC ENZYMES: No results for input(s): TROPONINI in the last 72 hours. Procalcitonin: No results found for: PROCAL COVID-19 PCR: No results for input(s): COVID19 in the last 72 hours. Objective: Vitals: BP 126/88 Pulse 82 Temp 36.3 ?C (97.3 ?F) (Temporal) Resp 18 Ht 5' 7.01 (1.702 m) Wt 182 lb 8.7 oz (82.8 kg) SpO2 96% BMI 28.58 kg/m? Pulse Ox: SpO2 Av.5 % Min: 93 % Max: 98 % Supplemental O2: O2 Flow Rate (L/min): 2 L/min Physical Exam Vitals and nursing note reviewed. Constitutional: Appearance: She is not ill-appearing. HENT: Head: Comments: Left craniotomy incision with yao, CDI Eyes: Pupils: Pupils are equal, round, and reactive to light. Cardiovascular: Rate and Rhythm: Normal rate and regular rhythm. Pulses: Normal pulses. Heart sounds: No murmur heard. Pulmonary: Effort: Pulmonary effort is normal. No respiratory distress. Breath sounds: Normal breath sounds. Abdominal: General: Bowel sounds are normal. There is no distension. Palpations: Abdomen is soft. Musculoskeletal: Right lower leg: No edema. Left lower leg: No edema. Skin: General: Skin is warm and dry. Capillary Refill: Capillary refill takes less than 2 seconds. Neurological: General: No focal deficit present. Mental Status: She is alert. Medications: Scheduled PRN acetaminophen, 1,000 mg, Oral, q8h enoxaparin, 40 mg, SubCUTAneous, Daily mupirocin, , Nasal, BID pantoprazole, 40 mg, Oral, Daily polyethylene glycol (PEG) 3350, 17 g, Oral, Daily sennosides, 1 tablet, Oral, BID sodium chloride 0.9%, 5-40 mL, IntraVENous, 2 times per day vancomycin, 1,000 mg, IntraVENous, q12h PRN medications: baclofen, hydrALAZINE, ipratropium-albuterol, labetalol, naloxone, ondansetron ODT OR ondansetron, oxyCODONE OR oxyCODONE, sodium chloride, sodium chloride 0.9% Continuous Assessment Data: (CAT1) Reviewed 3 or more notes from different specialty or health system (each=1). (CAT1) Reviewed 3 or more labs/studies ordered by another provider not previously counted (each=1, panels count as 1). (CAT2) CT of head reviewed & showed s/p left hemicraniectomy as interpreted by me. 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 Patient is s/p left craniotomy for removal of infected bone flap and exposed hardware. Neurosurgery team has signed off at this point. Patient to follow-up outpatient with NSGY team. Infectious disease following-appreciate recommendations. Patient to continue vancomycin. Repeat blood cultures pending. Plan for 6 weeks of antibiotics noted. Will need PICC line placement after blood cx are sterile.. 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 Risk: Admission to hospital-level care was considered or occurred (HIGH). Advance Directive: Full Code Anticipated Discharge - Date - TBD - Location - Home - Pending the following -clinical progress, further management as above Total time spent (which include face to face and non face to face encounters) : 65 minutes Extended Emergency Contact Information Primary Emergency Contact: Erica Paige Mobile Relation: Sister Secondary Emergency Contact: GriceldaLeta taylor Relation: Other Ирина Gonzalez NP Division of Hospitalist Medicine [facility], [place] PROGRESS NOTE Observed: 06/30/2024 1:19 PM Status: COMPLETED Source: [facility] PHYSICAL THERAPY [facility] Initial Evaluation Name/MRN: Carla Sanchez ([id number]) Evaluation Date: 06/30/2024 Date of : 1950 Admission Date: 06/27/2024 7:36 AM Age: 74 y.o. Room/Bed: T2-225/T2-225 A Discharge Recommendation: Home with assist PRN Equipment Needed: No Assessment IMPRESSION: Patient with mild balance impairment limiting mobility. She reports independent mobility prior to admit. Currently SBA for ambulation. Recommend home with assist PRN at discharge. Admitting Diagnosis: infected bone flap, 06/27 L craniotomy for removal of infected bone flap and exposed hardware Prognosis: good Performance Deficits /Impairments: Increased Pain, Decreased Functional Mobility, Decreased Strength, and Decreased Balance Decision Making: Low Complexity Subjective Patient in chair. Agreeable to PT. Per RN, okay for PT. Pain: 0-10 pain scale: 4/10 Location: L head Past Medical History: Past Medical History: Diagnosis Date Anemia Arthritis Brain bleed (HCC) 2021 Diverticulitis Gastric ulcer Leg fracture, right Right arm fracture Seizures ([facility]) 2014 with first craniotomy- while in hospital- none since Thoracic spine fracture ([facility]) Past Surgical History: Past Surgical History: Procedure Laterality Date ABDOMINAL SURGERY 07/2021 on stomach CHOLECYSTECTOMY COLONOSCOPY CRANIOTOMY Left 2013 DILATION AND CURETTAGE OF UTERUS HAND SURGERY Right fracture repiair SMALL INTESTINE SURGERY small part removed UPPER GASTROINTESTINAL ENDOSCOPY Admission Diagnosis: Patient Active Problem List Diagnosis Date Noted Infected bone flap, initial encounter ([facility]) 06/27/2024 Intracranial hemorrhage ([facility]) 10/19/2021 SDH (subdural hematoma) ([facility]) 09/06/2021 Medical Precautions: No active isolations Proper PPE donned/doffed in accordance with facility standards. Fall Risk: [place] Fall Risk Score: 35 (Medium Risk) Precautions/Restrictions: Braces or Orthoses: helmet Family/Caregiver Present: none Overall Cognitive Status: WFL Overall Orientation Status: Oriented x4 Vision: Not Assessed Hearing: normal Social/Functional History Patient admitted from home. Lives With: Alone Type of Home: single family home Home Layout: Two Level Home and shower in basement Home Access: Stairs to Enter with Rails (# of stairs: 3 + 4) Bathroom Shower/Tub: Walk in Shower Toilet: Handicap Height Home Equipment: none Homemaking Responsibilities: Independent Receives Help From: None Active Pulverizer Tender: Yes Prior Level of Function Prior Level of Mobility: Independent; Device: None Prior Level of Transfers: Independent Objective Lower Extremity Assessment AROM: WFL PROM: NT Strength: Grossly 4/5 Sensation: WFL Balance: Balance During Session: Posture: good Sitting - Static: Independent Sitting - Dynamic: Independent Standing - Static: Independent Standing - Dynamic: SBA Bed Mobility: Pt up in chair upon arrival Transfers Sit to stand: Modified Independent Stand to sit: Modified Independent Ambulation Ambulation 1 Assistive device(s) used: None Assist level: SBA Distance (ft): 700 Quality of gait: mild instability through all phases Outcome Measures AM-PAC How much HELP from another person do you currently need Turning from your back to your side while in a flat bed without using bedrails?: None Moving from lying on your back to sitting on the side of a flat bed without using bedrails?: None Moving to and from a bed to a chair (including a wheelchair)?: None Standing up from a chair using your arms (wheelchair or bedside chair)?: None Walking in a hospital room?: None Stair climbing assessed?: No AM-PAC Inpatient Mobility Raw Score (No Stairs) : 20 JH-HLM JH-HLM Score: Walked 250 ft or more (i.e. several laps on unit) Plan Pt would benefit from skilled acute PT services to address Strengthening, Gait Training, Balance Training, Functional Mobility Training, Safety Education and Training, and Stair Training. Frequency: 3x/week for 4 weeks Barriers: None Safety/Education Safety Safety Devices in place: call light within reach, left in chair, gait belt, nurse notified, and no alarms engaged upon entry Restraints: No Education Education Given To: patient Education Provided: Plan of Care and Discharge Recommendations Education Method: Verbal Barriers to Learning: None Education Outcome: Verbalized Understanding Goals Patient Stated Goal: Walk around. Go home. Encounter Problems Encounter Problems (Active) Mobility Patient will ambulate 500+ feet with independence and no assistive device in order to improve safety and independence with mobility. Start: 06/30/24 Expected End: 07/28/24 Patient will ascend and descend flight of stairs with one railing and modified independence in order to safely negotiate home. Start: 06/30/24 Expected End: 07/28/24 Pain - Adult Transfers Patient will perform bed mobility with modified independence in order to improve independence and prepare for out of bed mobility. Start: 06/30/24 Expected End: 07/28/24 Therapy Time Individual Co-Treatment Co-Evaluation Time In 1256 Time Out 1315 Minutes 19 Ramona Carver, PT Patient's Physical Therapy Plan of Care supervision is transferred to a [facility] Physical Therapist. Goals and/or treatment plan was established in collaboration with patient/family/other representatives. [id number] Observed: 06/30/2024 1:13 PM Status: COMPLETED Source: [facility] Care Management Progress Not e 3W transfer pending. POD 3 removal of infected bone flap. Neuro surgery sign off. Will need PICC line placed for 6wk IVAB. Sister agreeable to be teachable caregiver. ADARSH following. CM to continue following for DC planning Length of Stay (Days): 3 GMLOS: 3.7 PROGRESS NOTE Observed: 06/30/2024 11:34 AM Status: COMPLETED Source: [facility] Hospitalist Progress Note 06/30/2024 Subjective: Admit Date: 06/27/2024 PCP: MARY SMITH Room#: T2-225/T2-225 A BRIEF HOSPITAL COURSE: Carla is a 74-year-old female with past medical history of craniotomy in past, diverticulitis, PUD, anemia, arthritis, seizures, gastric ulcer who underwent left craniotomy for removal of infected bone flap and exposed hardware on 06/[address] Barcenas. Postoperatively, patient was admitted under ICU. Patient was started on broad-spectrum antibiotics -vancomycin and cefepime. Or cultures noted to be positive for MRSA. Cefepime stopped on 06/29. Infectious disease team following. Patient transferred to medical team on 06/29. Interval History: Patient seen and examined this a.m., resting in bed. No overnight issues. Denies any chest pain, shortness of breath, abdominal pain. Remains afebrile. Plan of care discussed with the patient and all questions answered. Case and plan discussed with patient and bedside nurse. All questions answered. Adult diet Regular 24HR INTAKE/OUTPUT: Intake/Output Summary (Last 24 hours) at 06/30/2024 1134 Last data filed at 06/30/2024 0635 Gross per 24 hour Intake 500 ml Output 2725 ml Net -2225 ml Past Medical History: Past Medical History: Diagnosis Date Anemia Arthritis Brain bleed ([facility]) 2013, 2021 Diverticulitis Gastric ulcer Leg fracture, right Right arm fracture Seizures ([facility]) 2013 with first craniotomy- while in hospital- none since Thoracic spine fracture ([facility]) LABS: CBC: Recent Labs 06/28/24 0020 06/29/24 0009 06/30/24 0602 WBC 10.1 8.9 7.6 RBC 4.04 3.59* 3.99 HGB 12.1 10.8* 12.1 HCT 37.7 32.9* 36.7 MCV 93.3 91.6 92.0 RDW 13.9 14.4 14.3 PLT 134* 103* 123* BMP: Recent Labs 06/28/24 0020 06/29/24 0009 06/30/24 0602 NA 137 140 140 K 5.0 4.0 3.8 CL 106 109* 108* CO2 25 25 27 BUN 9 9 8* CREATININE 0.64 0.61 0.56* GLUCOSE 150* 120* 97 CALCIUM 8.2* 8.2* 8.4* ANIONGAP 6 6 5 LIVER PROFILE:No results for input(s): AST, ALT, BILITOT, ALKPHOS, PROT in the last 72 hours. No lab exists for component: LABALBU PT/INR: Recent Labs 06/28/24 0108 PROTIME 14.5* INR 1.3* CARDIAC ENZYMES: No results for input(s): TROPONINI in the last 72 hours. Procalcitonin: No results found for: PROCAL COVID-19 PCR: No results for input(s): COVID19 in the last 72 hours. Objective: Vitals: BP 100/59 (BP Location: Right arm, Patient Position: Sitting) Pulse 84 Temp 36.6 ?C (97.8 ?F) (Temporal) Resp 18 Ht 5' 7.01 (1.702 m) Wt 182 lb 8.7 oz (82.8 kg) SpO2 98% BMI 28.58 kg/m? Pulse Ox: SpO2 Av.8 % Min: 94 % Max: 98 % Supplemental O2: O2 Flow Rate (L/min): 2 L/min Physical Exam Vitals and nursing note reviewed. Constitutional: Appearance: She is not ill-appearing. HENT: Head: Comments: Left craniotomy incision with yao, CDI Eyes: Pupils: Pupils are equal, round, and reactive to light. Cardiovascular: Rate and Rhythm: Normal rate and regular rhythm. Pulses: Normal pulses. Heart sounds: No murmur heard. Pulmonary: Effort: Pulmonary effort is normal. No respiratory distress. Breath sounds: Normal breath sounds. Abdominal: General: Bowel sounds are normal. There is no distension. Palpations: Abdomen is soft. Musculoskeletal: Right lower leg: No edema. Left lower leg: No edema. Skin: General: Skin is warm and dry. Capillary Refill: Capillary refill takes less than 2 seconds. Neurological: General: No focal deficit present. Mental Status: She is alert. Medications: Scheduled PRN enoxaparin, 40 mg, SubCUTAneous, Daily mupirocin, , Nasal, BID pantoprazole, 40 mg, Oral, Daily polyethylene glycol (PEG) 3350, 17 g, Oral, Daily potassium phosphates 30 mmol in sodium chloride 0.9 % 250 mL IVPB, 30 mmol, IntraVENous, Once sennosides, 1 tablet, Oral, BID sodium chloride 0.9%, 5-40 mL, IntraVENous, 2 times per day vancomycin, 1,000 mg, IntraVENous, q12h PRN medications: acetaminophen, acetaminophen, baclofen, hydrALAZINE, ipratropium-albuterol, labetalol, naloxone, ondansetron ODT OR ondansetron, oxyCODONE OR oxyCODONE, sodium chloride, sodium chloride 0.9% Continuous Assessment Data: (CAT1) Reviewed 3 or more notes from different specialty or health system (each=1). (CAT1) Reviewed 3 or more labs/studies ordered by another provider not previously counted (each=1, panels count as 1). (CAT2) CT of head reviewed & showed s/p left hemicraniectomy as interpreted by me. 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 Neurosurgery team has signed off at this point. Patient to follow-up outpatient with NSGY team. Infectious disease following-appreciate recommendations. Patient to continue vancomycin. Repeat blood cultures pending. Plan for 6 weeks of antibiotics noted. Will need PICC line placement. 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 Risk: Admission to hospital-level care was considered or occurred (HIGH). Advance Directive: Full Code Anticipated Discharge - Date - TBD - Location - Home - Pending the following -clinical progress, further management as above Total time spent (which include face to face and non face to face encounters) : 65 minutes Extended Emergency Contact Information Primary Emergency Contact: Leta Johns Relation: Other Ирина Gonzalez NP Division of Hospitalist Medicine [facility], [place] PROGRESS NOTE Observed: 06/30/2024 9:43 AM Status: COMPLETED Source: [facility] Department of Neurosurgery Progress Note Chief Complaint: infected bone flap SUBJECTIVE: s/p removal of infected bone flaps. Pt sitting up in bed and doing well. OBJECTIVE Physical BP 103/56 (BP Location: Left arm, Patient Position: Sitting) Pulse 72 Temp 36.8 ?C (98.3 ?F) (Temporal) Resp 20 Ht 5' 7.01 (1.702 m) Wt 182 lb 8.7 oz (82.8 kg) SpO2 97% BMI 28.58 kg/m? NEUROLOGIC: A&O x3 BRENNAN Strength 5/5 in all extremities Sensation intact Incision C/D/I ASSESSMENT AND PLAN 74 y.o. female status post removal of infected bone flap post op day # 3 Pt progressing as expected Cultures growing MRSA ID following Pt to follow up as scheduled No further recommendations Ok for DC from NSGY standpoint when ID has final plan Will sign off RESS NOTE Observed: 06/30/2024 8:03 AM Status: COMPLETED Source: [facility] Pharmacy to Dose Vancomycin - Progress Note Lab Results Component Value Date CREATININE 0.56 (L) 06/30/2024 BUN 8 (L) 06/30/2024 WBC 7.6 06/30/2024 VANCOTROUGH 14.3 06/29/2024 Doses, serum creatinine, and vancomycin levels interfaced automatically to [employer] and data has been analyzed and interpreted. Infectious Diagnosis: Bone and Joint infection, Sepsis Est CrCl: 99 mL/min (Cockcroft-Gault) Assessment: Current regimen vancomycin 1000 mg every 12 hours (12.1 mg/kg) Predicted AUC = 476 mg/L*hr (goal 400-600 mg/L*hr) PAUC = 84% (probability that AUC is >400 mg/L*hr) Pconc = 3% (probability that Ctrough is above 20 mcg/mL (toxicity)) Plan: Is the current dose therapeutic? [x] Yes - obtain next level on 07/06/24 unless predicted AUC is sub-/supra-therapeutic or change in serum creatinine. Trend serum creatinine. Trend AUC using Bayesian Modeling. Orders placed. DATE: 06/30/24 TIME: 8:03 AM Bee Zhu [facility] Clinical Pharmacist Available via Secure Chat PROGRESS NOTE Observed: 06/30/2024 7:29 AM Status: COMPLETED Source: [facility] PHYSICAL THERAPY [facility] Name/MRN: Carla Sanchez ([id number]) Date: 06/30/2024 PT orders received. Per orders, PT eval and treat - if Brennon mobility sub score is less than or equal to 2 (Activity/Mobility). Current Activity/Mobility score is 3. Will sign off PT. If PT eval is needed, will need eval and treat orders placed. Ramona Carver, ARVIND PROGRESS NOTE Observed: 06/30/2024 7:01 AM Status: COMPLETED Source: [facility] Attestation signed by Jorge Alberto Smyth MD at 07/07/2024 7:03 AM (Updated) ~~~~~~~~~~~~~~~~~~~~~~~~~~~~~~~~~~~~~~~~~~~~~~~~~~~~~~~~~~ Attending physician addendum: I independently saw and evaluated the patient. I personally obtained the ames and critical portion of the history and physical exam. I reviewed and agree with the documentation below. I personally reviewed patient's labs and imaging studies. My findings agree with the below note except for any details corrected. I have examined the patient at the date below. Patient Active Problem List Diagnosis SDH (subdural hematoma) (HCC) Intracranial hemorrhage (HCC) Infected bone flap, initial encounter ([facility]) I personally supervised the resident/RETURNED GOODS INSPECTOR/JAKE in the evaluation and development of a treatment plan for this patient on the same day of service as below. I personally discussed the review of systems and interviewed the patient along with performing a physical examination. I reviewed the recent events, imaging, labs, vital signs. In addition, I discussed the patient's condition and treatment options with him/her when possible. I have also reviewed and agree with the past medical, family, and social history unless otherwise noted. All of the patient's questions were answered and family updated when appropriate and possible. A complete review of systems was obtained and is negative except as stated in HPI. Per Dr Luis's note. I have evaluated the patient on 06/30/2024 Patient's headache slowly improving - currently 4-10/11. Remains neuro intact. Tolerates diet. + BM. OR cultures - MRSA. Blood cultures negative however collected following initiation of Abx. Will discuss with ID timing of PICC line placement and checking TTE. Stable for floor transfer. Change PRN to scheduled acetaminophen, start bowel regimen, daily to q48h labs, change PRN Hydralazin and Labetalol for SBP goal < 150 mmHg, restart home Baclofen, and Protonix, cont Lovenox for chemo DVT prophylaxis Chief complain: headache Problem list: Left craniotomy site infection s/p craniotomy in 2013 for SDH TBI Seizures Diverticulitis Gastric ulcer History of smoking History of cholangitis with BSI History of gastric bypass Surgeries / Procedures: 06/27 - Left craniotomy for removal of infected bone flap Management / Plan : Neuro / Spine - Pain control: cecy Tylenol, prn oxycodone - Home baclofen - Elevate HOB 30 degrees -Neurosurgery signed off -Neurochecks q.4 -HOB greater than 30 degrees -Okay to be transferred out of SICU to medicine per neurosurgery Cardiovascular - Hemodynamically stable - Labetalol/hydralazine prn - Telemetry Pulmonary - Standard O2 protocol - IS - Duonebs PRN FEN/GI - Regular diet - Zofran PRN - Daily BMP, CBC, Mg, Phos -electrolytes replaced -MiraLAX, Senna -No acute issues -Monitor I's and O's Endocrine - No acute issues Heme - Hgb stable - No transfusions indicated ID -Infectious disease consulted and following -On vancomycin per ID -Stopped cefepime -Crani cultures growing Staph aureus -Blood cultures pending -Will reach out to ID regarding utility of YENNIFER and/or PICC in event of bacteremia Lines/Devices: - PIV Prophylaxis: DVT: SCDs Has DVT PPX been started? Yes If no, why? GI: pantoprazole Pressure Ulcer: Continue to monitor, q2 turns Musculoskeletal: - PT/OT - All extremities AT Disposition: transfer to floor discussed with Dr. Oscar CASSIDY IM Level of Medical Decision Making: risk of morbidity from additional diagnostic testing or treatment due to postoperative management [x]High []Moderate []Low Personally Reviewed/Independently interpreted patient's: [x]Epic notes [x]Radiology studies [x]Labs []EKG []Ordering tests []Other Discussed/ With: [x]Patient/Family [x]RN [x]Consultants []SW/TCC []Other I spent total time of >= 50 minutes reviewing previous notes, test results, and face to face with Carla Sanchez discussing the diagnosis and importance of compliance with the treatment plan as well as documenting on the day of the visit. Time was spent, Reviewing medical record including recent tests and results Ordering prescription medications/tests and procedures Communicating results to the patient/family/caregiver Counseling/educating the patient/family/caregiver Documenting clinical information the patient's electronic record Coordination of care for the patient Performing a medical appropriate exam and evaluation Bulmaro Smyth MD FACS Trauma, Surgical Critical Care, & General Surgery Division of Trauma Department of Surgery [facility] P Daily SICU Progress Note Resident 06/30/2024 7:01 AM Admit Date: 06/27/2024 HPI: Carla Sanchez is a 74 y.o. female with a past medical history of craniotomy in past, diverticulitis, PUD who underwent L craniotomy for removal of infected bone flap and exposed hardware on 06/[address] Barcenas. PROCEDURES: Left craniotomy for removal of infected bone flap/exposed hardware 06/27/2024 INCIDENTAL FINDINGS: N/A CHIEF COMPLAINT: Infected bone flap PREVIOUS 24 HOUR EVENTS: NAEON. Pain well controlled. Patient wishes to get out of bed today with PT. Patient grossly neuro intact. Consults: IP CONSULT TO INFECTIOUS DISEASES PHARMACY TO DOSE VANCO INPATIENT CONSULT TO CONTACT LENS BLOCKER AND CUTTER MEDICATIONS: Current Facility-Administered Medications: acetaminophen (Tylenol) tablet 650 mg, 650 mg, Oral, q4h PRN, Javed Carrillo MD, 650 mg at 06/29/24 1603 enoxaparin (Lovenox) syringe 40 mg, 40 mg, SubCUTAneous, Daily, Carlin Stinson MD, 40 mg at 06/29/24 1221 hydrALAZINE (Apresoline) injection 10 mg, 10 mg, IntraVENous, q4h PRN, Javed Carrillo MD ipratropium-albuterol (Duo-Neb) 0.5-2.5 mg/3 mL nebulizer solution 3 mL, 3 mL, Nebulization, TID PRN, Javed Carrillo MD labetalol (Normodyne,Trandate) injection 10 mg, 10 mg, IntraVENous, q4h PRN, Javed Carrillo MD magnesium sulfate IVPB premix 2,000 mg, 2,000 mg, IntraVENous, Once, Jeb Luis MD morphine injection 2 mg, 2 mg, IntraVENous, q2h PRN OR morphine injection 4 mg, 4 mg, IntraVENous, q2h PRN, Javed Carrillo MD, 4 mg at 06/27/24 1503 naloxone (Narcan) injection 0.4 mg, 0.4 mg, IntraVENous, q5 min PRN, Javed Carrillo MD ondansetron ODT (Zofran-ODT) disintegrating tablet 4 mg, 4 mg, Oral, q8h PRN OR ondansetron (Zofran) injection 4 mg, 4 mg, IntraVENous, q6h PRN, Javed Carrillo MD, 4 mg at 06/27/24 1615 oxyCODONE (Roxicodone) immediate release tablet 5 mg, 5 mg, Oral, q4h PRN OR oxyCODONE (Roxicodone) immediate release tablet 10 mg, 10 mg, Oral, q4h PRN, Javed Carrillo MD, 10 mg at 06/27/24 1813 pantoprazole (ProtoNix) EC tablet 40 mg, 40 mg, Oral, Daily, Javed Carrillo MD, 40 mg at 06/29/24 0808 polyethylene glycol (PEG) 3350 (Miralax) packet 17 g, 17 g, Oral, Daily, Javed Carrillo MD, 17 g at 06/29/24 0810 potassium phosphates 30 mmol in sodium chloride 0.9 % 250 mL IVPB, 30 mmol, IntraVENous, Once, Jeb Luis MD sodium chloride 0.9 % infusion, 5-250 mL/hr, IntraVENous, PRN, Javed Carrillo MD sodium chloride 0.9% (NS) flush 5-40 mL, 5-40 mL, IntraVENous, 2 times per day, Javed Carrillo MD, 10 mL at 06/29/24 2030 sodium chloride 0.9% (NS) flush 5-40 mL, 5-40 mL, IntraVENous, PRN, Javed Carrillo MD [COMPLETED] vancomycin (Vancocin) 1750 mg in NS 500 mL IVPB (premix), 1,750 mg, IntraVENous, Once, Last Rate: 250 mL/hr at 06/28/24 0830, 1,750 mg at 06/28/24 0830 FOLLOWED BY vancomycin IVPB 1000 mg in 200 mL NS (premix), 1,000 mg, IntraVENous, q12h, Javed Carrillo MD, Stopped at 06/29/24 8096 ARE THERE PERTINENT UPDATES TO PAST,FAMILY, OR SOCIAL HISTORY?: No Subjective: Review of Systems as above unless otherwise stated below: Objective: Patient Vitals for the past 24 hrs: BP Temp Temp src Pulse Resp SpO2 Weight 06/30/24 0635 -- -- -- -- -- -- 82.8 kg (182 lb 8.7 oz) 06/30/24 0028 118/61 36.4 ?C (97.5 ?F) -- 88 22 95 % -- 06/29/242001 93/58 36.1 ?C (97 ?F) Temporal 102 22 94 % -- 06/29/241999 -- -- -- 113 19 94 % -- 06/29/24 1400 -- -- -- 91 13 96 % -- 06/29/24 1300 -- -- -- 99 18 98 % -- 06/29/24 1200 -- -- -- 85 18 94 % -- 06/29/24 1100 109/62 -- -- 84 16 92 % -- 06/29/24 1000 -- -- -- 85 18 91 % -- 06/29/24 0900 114/56 -- -- 84 18 97 % -- 06/29/24 0800 120/64 -- -- 83 19 92 % -- Intake/Output Summary (Last 24 hours) at 06/30/2024 0701 Last data filed at 06/30/2024 0635 Gross per 24 hour Intake 500 ml Output 2725 ml Net -2225 ml No intake/output data recorded. Last BM: 06/26/24 Diet: regular CVP: No PHYSICAL: Physical Exam Vitals and nursing note reviewed. Constitutional: General: She is not in acute distress. Appearance: She is not toxic-appearing. HENT: Head: Normocephalic and atraumatic. Right Ear: External ear normal. Left Ear: External ear normal. Nose: Nose normal. No rhinorrhea. Mouth/Throat: Mouth: Mucous membranes are moist. Pharynx: No posterior oropharyngeal erythema. Eyes: General: Right eye: No discharge. Left eye: No discharge. Conjunctiva/sclera: Conjunctivae normal. Cardiovascular: Rate and Rhythm: Normal rate. Pulmonary: Effort: Pulmonary effort is normal. No respiratory distress. Breath sounds: No stridor. Abdominal: General: There is no distension. Palpations: Abdomen is soft. Tenderness: There is no abdominal tenderness. There is no guarding or rebound. Skin: General: Skin is warm. Capillary Refill: Capillary refill takes less than 2 seconds. Neurological: General: No focal deficit present. Mental Status: She is alert and oriented to person, place, and time. Mental status is at baseline. GCS: GCS eye subscore is 4. GCS verbal subscore is 5. GCS motor subscore is 6. Sensory: Sensation is intact. Motor: Motor function is intact. Comments: Left craniotomy incision with yao, CDI Psychiatric: Mood and Affect: Mood normal. Thought Content: Thought content normal. Sutures or yao? Yes O2: RA / / / Data Review Data CBC with Differential: Lab Results Component Value Date WBC 7.6 06/30/2024 RBC 3.99 06/30/2024 HGB 12.1 06/30/2024 HCT 36.7 06/30/2024 PLT 123 (L) 06/30/2024 CMP: Lab Results Component Value Date NA 140 06/30/2024 K 3.8 06/30/2024 CL 108 (H) 06/30/2024 CO2 27 06/30/2024 BUN 8 (L) 06/30/2024 CREATININE 0.56 (L) 06/30/2024 GLUCOSE 97 06/30/2024 CALCIUM 8.4 (L) 06/30/2024 BMP: Hepatic Function Panel:Ionized Calcium: No components found for: IONCA Magnesium: Lab Results Component Value Date MG 1.8 06/30/2024 Phosphorus: Lab Results Component Value Date PHOS 2.3 06/30/2024 PT/INR: Lab Results Component Value Date PROTIME 14.5 (H) 06/28/2024 INR 1.3 (H) 06/28/2024 PTT: No results found for: APTT[APTT Last 3 Troponin: No results found for: TROPONINI Urine Culture: No components found for: CURINE Blood Culture: No components found for: CBLOOD, CFUNGUSBL Blood Culture from Central Line: No components found for: CBLOODLN Stool Culture: No components found for: CSTOOL Sputum Culture: No components found for: CSPUTUM Sputum Culture for AFB: No components found for: CAFBSM Radiology: CT head wo IV contrast Result Date: 06/28/2024 Patient Name: CARLA SANCHEZ : 1950 Exam Date/Time: 06/28/2024 04:21 Procedure: CT HEAD WO IV CONTRAST Ordering Provider: MEYER JENNIFER Reason For Exam: s/p hemicraniectomy CT HEAD: CLINICAL INDICATION: Status post hemicraniectomy. TECHNIQUE: Transaxial CT sequence performed through the head with 3 mm reconstruction. Sagittal and Coronal reconstruction images included. Dose reduction was employed with automated exposure control. COMPARISON: 11/04/2021 FINDINGS: There are postsurgical changes of left hemicraniectomy. Along the inferior aspect of the craniectomy defect is a extra-axial collection measuring 3.3 x 0.8 x 2.7 cm. There is left frontal pneumocephalus. Ventricles and sulci are normal in size and configuration for age. There is a trace [id number] midline shift measuring [address] evidence of an acute large territorial infarction. Imaged paranasal sinuses and mastoid air cells are well aerated. Right-sided craniotomy noted with plate and screws. 1. Status post left hemicraniectomy with small extra-axial hematoma within the craniectomy defect measuring up to 3.3 x 0.8 cm. There is trace left to right midline shift measuring 3 mm. Report Dictated on Electronically Signed By: Pedro Nowak MD Electronically Signed Date/Time: 06/28/2024 4:36 AM EST Patient Active Problem List Diagnosis SDH (subdural hematoma) (HCC) Intracranial hemorrhage (HCC) Infected bone flap, initial encounter ([facility]) ASSESSMENT: Carla Sanchez is a 74 y.o. female status post left sided craniotomy for infected bone flap/hardware 06/27/[address] Barcenas. PLAN: Neuro / Spine - Pain control: cecy Tylenol, prn oxycodone - Home baclofen - Elevate HOB 30 degrees -Neurosurgery signed off -Neurochecks q.4 -HOB greater than 30 degrees -Okay to be transferred out of SICU to medicine per neurosurgery Cardiovascular - Hemodynamically stable - Labetalol/hydralazine prn - Telemetry Pulmonary - Standard O2 protocol - IS - Duonebs PRN FEN/GI - Regular diet - Zofran PRN - Daily BMP, CBC, Mg, Phos -electrolytes replaced -MiraLAX, Senna -No acute issues -Monitor I's and O's Endocrine - No acute issues Heme - Hgb stable - No transfusions indicated ID -Infectious disease consulted and following -On vancomycin per ID -Stopped cefepime -Crani cultures growing Staph aureus -Blood cultures pending -Will reach out to ID regarding utility of YENNIFER and/or PICC in event of bacteremia Lines/Devices: - PIV Prophylaxis: DVT: SCDs Has DVT PPX been started? Yes If no, why? GI: pantoprazole Pressure Ulcer: Continue to monitor, q2 turns Musculoskeletal: - PT/OT - All extremities AT Disposition: transfer to floor discussed with Dr. Moore [facility] [place] IM 30 Observed: 06/30/2024 6:36 AM Status: COMPLETED Source: [facility] Pt moderately stable at this time, awaiting transfer out of the ICU. Will continue to monitor and follow recommended treatment plans. MAGNESIUM Collected: 6:02 AM Status: F [facility] TYPE CODE TESTS RESULT OUT OF RANGE REFERENCE UNITS LAB [id number] MAGNESIUM 1.8 1.6-2.6 mg/dL Result Comment: ORDER COMMEN TS: Higher values can be expected in females during menses. Performed By: #### [id number], L AB15, [id number] #### Prize Jacker: ARTURO TANNER ([id number]) [facility] ([facility]) [address] [place] [address] PHOSPHORUS Collected: 6:02 AM Status: F [facility] TYPE CODE TESTS RESULT OUT OF RANGE REFERENCE UNITS LAB [id number] PHOSPHORUS 2.3 2.3-4.7 mg/dL Performed By: #### [id number], L AB15, [id number] #### Prize Jacker: ARTURO TANNER ([phone]) [facility] [address] [place] [address] BASIC METABOLIC PANEL Collected: 2024 6:02 AM Status: F [facility] TYPE CODE TESTS RESULT OUT OF RANGE REFERENCE UNITS LAB [id number] SODIUM 140 136-145 mmol/L LAB [id number] POTASSIUM 3.8 3.5-5.1 mmol/L Result Comment: Plasma potas sium values may be up to 0.5 mmol/L lower than serum values. LAB [id number] CHLORIDE 108 High 98-107 mmol/L LAB [id number] CARBON DIOXIDE 27 23-31 mmol/L LAB 1362931 UREA NITROGEN 8 Low 9-23 mg/dL LAB 3672762 CREATININE 0.56 Low 0.57-1.11 mg/dL LAB 7727577 GLUCOSE 97 82-115 mg/dL LAB 7233402 CALCIUM 8.4 Low 8.8-10.0 mg/dL LAB [id number] ANION GAP (VALLE, CALCULATED) 5 3-13 mmol/L LAB 1633381 GLOMERULAR FILTRATION RATE ML/MIN/1.73 SQ M.PREDICTED >90.0 >60.0 mL/min/1. 73m*2 Result Comment: Calculation based on the Chronic Kidney Disease Epidemiology Collaboration (CKD-EPI) equation refit without adjustment for race Performed By: #### [id number], L AB15, CON124 #### Prize Jacker: ARTURO TANNER ([id number]) [facility] ([address] CBC WITH AUTO DIFFERENTIAL Collected: 06/30/2024 6:02 AM Status: F Source: [facility] TYPE CODE TESTS RESULT OUT OF RANGE REFERENCE UNITS LAB [id number] WBC 7.6 3.6-10.7 10*3/uL LAB 2077594 RBC 3.99 3.80-5.20 10*6/uL LAB 4391344 HEMOGLOBIN 12.1 11.7-16.0 g/dL LAB 1804594 HEMATOCRIT 36.7 35.0-47.0 % LAB 9209515 MCV 92.0 77.0-99.0 fL LAB 4232159 MCH 30.3 26.0-34.0 pg LAB 0814793 MCHC 33.0 30.5-36.0 % LAB 2365124 RDW 14.3 11.5-15.0 % LAB 2601187 PLATELET COUNT 123 Low 140-440 10*3/uL LAB 5941607 MPV 10.7 9.0-12.7 fL LAB 254 NRBC 0.0 0.0-2.0 /100 WBCs LAB 0914548 NEUTROPHILS RELATIVE 71.6 38.0-82.0 % LAB 6648579 LYMPHOCYTES RELATIVE 15.0 15.0-45.0 % LAB 6232836 MONOCYTES RELATIVE 9.8 5.0-13.0 % LAB 7669045 EOSINOPHILS RELATIVE 3.2 0.0-6.0 % LAB 8060184 BASOPHILS RELATIVE 0.1 0.0-2.0 % LAB 0533789 IMMATURE GRANS % 0.3 0.0-2.0 % LAB 8178587 NEUTROPHILS ABSOLUTE 5.4 1.8-7.5 10*3/uL LAB 2638729 LYMPHOCYTES ABSOLUTE 1.1 1.0-4.3 10*3/uL LAB 7385608 MONOCYTES ABSOLUTE 0.7 0.0-0.9 10*3/uL LAB 9433167 EOSINOPHILS ABSOLUTE 0.2 0.0-0.5 10*3/uL LAB 2334362 BASOPHILS ABSOLUTE 0.0 0.0-0.2 10*3/uL LAB 480635 IMMATURE GRANS ABSOLUTE 0.0 <0.1 10*3/uL LAB 9876631 IPF 3 Performed By: #### [id number] # ### Prize Jacker: ARTURO TANNER ([id number]) [facility]) [address] [place] [address] 30 Observed: 06/29/2024 1:35 PM Status: COMPLETED Source: [facility] Problem: Knowledge Deficit Goal: Patient/family/caregiver demonstrates understanding of disease process, treatment plan, medications, and discharge instructions Outcome: ProgressingProblem: Potential for Compromised Skin Integrity Goal: Skin Integrity is Maintained or Improved Outcome: ProgressingGoal: Nutritional status is improving Outcome: ProgressingProblem: Safety - Adult Goal: Free from fall injury Outcome: Progressing BLOOD CULTURE Observed: 06/29/2024 1:25 PM Status: F Source: [facility] BLOOD CULTURE Reference No growth at 5 days ORDER COMMENTS: Blood Collection Site: Left Antecubital [ S = SUSCEPTIBLE R = RESISTANT I = INTERMEDIATE S-DD = Susceptible-dose dependent NS = Non-susceptible NO = No Interpretation ] Performed By: #### [id number] ## ## Prize Jacker: ARTURO TANNER ([id number]) [facility] ([facility]) [address] [place] [address] BLOOD CULTURE Observed: 06/29/2024 1:25 PM Status: F Source: [facility] BLOOD CULTURE Reference No growth at 5 days ORDER COMMENTS: Blood Collection Site: Right Antecubital [ S = SUSCEPTIBLE R = RESISTANT I = INTERMEDIATE S-DD = Susceptible-dose dependent NS = Non-susceptible NO = No Interpretation ] Performed By: #### [id number] ## ## Prize Jacker: ARTURO TANNER ([id number]) [facility] ([facility]) [address] [place] [address] PROGRESS NOTE Observed: 06/29/2024 10:45 AM Status: COMPLETED Source: [facility] - Infectious Diseases Attending Progress Note Subjective: Following for MRSA cranial flap infection s/p hemicraniectomy for exposed hardware Remains in T2. OR cx are growing MRSA. Mild headache. No fevers. Tolerating abx. Tm 99.9F. Vitals: Patient Vitals for the past 24 hrs: BP Temp Temp src Pulse Resp SpO2 Height Weight 06/29/24 1000 -- -- -- 85 18 91 % -- -- 06/29/24 0900 114/56 -- -- 84 18 97 % -- -- 06/29/24 0800 120/64 -- -- 83 19 92 % -- -- 06/29/24 0700 128/66 -- -- 87 22 98 % -- -- 06/29/24 0600 114/58 -- -- 86 20 98 % -- -- 06/29/24 0500 114/59 -- -- 84 19 97 % -- -- 06/29/24 0447 -- -- -- -- -- -- -- 80.9 kg (178 lb 5.6 oz) 06/29/24 0400 117/67 37.7 ?C (99.9 ?F) Temporal 91 20 98 % -- -- 06/29/24 0300 115/57 -- -- 91 23 97 % -- -- 06/29/24 0200 114/61 -- -- 93 23 (!) 88 % -- -- 06/29/24 0101 112/67 -- -- 100 20 94 % -- -- 06/29/24 0000 109/58 37.6 ?C (99.6 ?F) Temporal 98 23 93 % -- -- 06/28/24 2300 102/69 -- -- 104 23 96 % -- -- 06/28/24 2200 102/52 -- -- 103 22 97 % -- -- 06/28/24 2100 106/50 -- -- 95 24 98 % -- -- 06/28/24 2000 107/56 37.2 ?C (99 ?F) Temporal 100 25 96 % -- -- 06/28/24 1900 110/56 -- -- 101 19 92 % -- -- 06/28/24 1800 120/56 -- -- 100 (!) 26 96 % -- -- 06/28/24 1700 116/56 -- -- 99 24 98 % -- -- 06/28/24 1600 120/64 -- -- 116 22 (!) 86 % -- -- 06/28/24 1500 121/58 -- -- 99 23 93 % -- -- 06/28/24 1400 112/59 -- -- 98 22 95 % -- -- 06/28/24 1300 100/53 -- -- 97 22 98 % -- -- 06/28/24 1206 -- -- -- -- -- -- 1.702 m (5' 7.01) -- 06/28/24 1200 134/87 36.9 ?C (98.4 ?F) -- 100 25 95 % -- -- 06/28/24 1100 110/66 -- -- 83 17 95 % -- -- Physical Exam: Physical Exam Vitals and nursing note reviewed. Constitutional: Appearance: She is ill-appearing. HENT: Head: Comments: Post-op cranial dressing Nose: Nose normal. Mouth/Throat: Mouth: Mucous membranes are moist. Pharynx: Oropharynx is clear. Eyes: General: No scleral icterus. Extraocular Movements: Extraocular movements intact. Cardiovascular: Rate and Rhythm: Normal rate and regular rhythm. Pulmonary: Effort: Pulmonary effort is normal. No respiratory distress. Breath sounds: No wheezing. Abdominal: General: There is no distension. Palpations: Abdomen is soft. Tenderness: There is no abdominal tenderness. Musculoskeletal: Right lower leg: No edema. Left lower leg: No edema. Comments: + arthritic joint changes; no synovitis or crepitance of any limb Skin: General: Skin is warm and dry. Coloration: Skin is not jaundiced. Findings: No rash. Neurological: Mental Status: She is alert and oriented to person, place, and time. Motor: Weakness present. Psychiatric: Mood and Affect: Mood normal. Thought Content: Thought content normal. Labs: Recent Labs 06/28/24 0020 06/29/24 0009 NA 137 140 K 5.0 4.0 CL 106 109* CO2 BUN 9 9 CREATININE 0.64 0.61 GLUCOSE 150* 120* CALCIUM 8.2* 8.2* Recent Labs 06/28/24 0020 06/29/24 0009 WBC 10.1 8.9 HGB 12.1 10.8* HCT 37.7 32.9* PLT 134* 103* LYMPHOPCT 8.2* 10.6* MONOPCT 6.9 8.0 BASOPCT 0.1 0.2 NEUTROABS 8.6* 7.0 Micro: 06/27- brain biopsy cx- MRSA (no orgs on stain) 06/27- bone OR cx- MRSA (no orgs on stain) 06/27- other scalp OR cx- MRSA (no orgs on stain) 06/27- swab scalp cx- MRSA (no orgs on stain) 06/27- swab scalp cx- MRSA (no orgs on stain) Lines: PIV Radiography/Echo/Other: 06/28- CT brain- There are postsurgical changes of left hemicraniectomy. Along the inferior aspect of the craniectomy defect is a extra-axial collection measuring 3.3 x 0.8 x 2.7 cm. There is left frontal pneumocephalus. Ventricles and sulci are normal in size and configuration for age. There is a trace [id number]-kr-[id number] midline shift measuring [address] evidence of an acute large territorial infarction. Imaged paranasal sinuses and mastoid air cells are well aerated. Right-sided craniotomy noted with plate and screws. IMPRESSION: 1. Status post left hemicraniectomy with small extra-axial hematoma within the craniectomy defect measuring up to 3.3 x 0.8 cm. There is trace left to right midline shift measuring 3 mm. 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 Stop cefepime. Check blood cx. Will need 6 weeks of IV abx and PICC line placement after blood cx are sterile. Will follow. Based on diagnoses and management, combination of acute and chronic problems, exacerbations and/or acuity, this visit should be considered to be of moderate complexity. Sayra Honeycutt MD PROGRESS NOTE Observed: 06/29/2024 10:13 AM Status: COMPLETED Source: [facility] ICU Transfer Checklist Transfer Med Reconciliation (resume home meds if able, convert to PO if able) Complete Antibiotics (name, indication, duration, convert to PO if able) Yes, addressed in today's progress note Steroid (indication, duration, convert to PO if able) None Anticipated Nemacolin Medications (ICU initiated) or Dose Changes and Indication No Permanently Discontinued Home Medications and Reason for medication contraindication No Ngo Catheter (please remove if able. Note: place DC order) Order to remove placed Central Line (please remove if able. Note: place DC order) No Transfer Discussed with: Dr. Moore If additional questions for ICU team within 24 hours of ICU transfer, page SICU res transition nurse for clarifications. RESS NOTE Observed: 06/29/2024 9:46 AM Status: COMPLETED Source: [facility] Attestation signed by Carlin Stinson MD at 06/29/2024 10:50 AM ATTENDING ADDENDUM Active Diagnoses/Problems this Admission: Patient Active Problem List Diagnosis SDH (subdural hematoma) (HCC) Intracranial hemorrhage (HCC) Infected bone flap, initial encounter ([facility]) I personally supervised the resident physician in the evaluation and development of a treatment plan for this patient on the same day of service as above. I personally discussed the review of systems and interviewed the patient along with performing a physical examination. I reviewed the recent events, imaging, labs, vital signs. In addition, I discussed the patient's condition and treatment options with him/her when possible. I have also reviewed and agree with the past medical, family, and social history unless otherwise noted. All of the patient's questions were answered and family updated when appropriate and possible. A complete review of systems was obtained and is negative except as stated in HPI and/or Subjective Section. 74F w/ PMH as below, underwent L craniotomy for removal of infected bone flap and exposed hardware 06/27, admitted to SICU postop PLAN: - rCTH w/ expected postop changes - keep HOB@30 - fu helmet fitting - goal SBP< 150 mmHg - PRN Labetalol and Hydralazine - multimodal pain control - reg diet, bowel reg - infected bone flap: ID following, on vanc/zosyn, fu OR cultures - LVX ppx - PT/OT Dispo: ok for floor transfer Level of Medical Decision Making: []High [x]Moderate []Low Complexity: Acute or chronic illness posing a threat to life (HIGH) Risk: Parental controlled substances (HIGH) Prescription drug management (MOD) Personally Reviewed/Independently interpreted patient's: [x]Epic notes []Radiology studies [x]Labs []EKG []Ordering tests []Other Discussed/ With: [x]Patient/Family [x]RN []Consultants [x]Primary []SW/TCC []Other I spent total time of 35 minutes reviewing previous notes, test results, and face to face with Carla Sanchez discussing the diagnosis and importance of compliance with the treatment plan as well as documenting on the day of the visit. Time was spent, Reviewing medical record including recent tests and results Ordering prescription medications/tests and procedures Communicating results to the patient/family/caregiver Counseling/educating the patient/family/caregiver Documenting clinical information the patient's electronic record Coordination of care for the patient Performing a medical appropriate exam and evaluation Carlin Stinson MD, FACS Trauma, Surgical Critical Care, & General Surgery Division of Trauma Department of Surgery [facility] Daily SICU Progress Note Resident 06/29/2024 9:46 AM Admit Date: 06/27/2024 HPI: Carla Sanchez is a 74 y.o. female with a past medical history of craniotomy in past, diverticulitis, PUD who underwent L craniotomy for removal of infected bone flap and exposed hardware on 06/[address] Barcenas. PROCEDURES: Left craniotomy for removal of infected bone flap/exposed hardware 06/23/2024 INCIDENTAL FINDINGS: N/A CHIEF COMPLAINT: Infected bone flap PREVIOUS 24 HOUR EVENTS: NAEON Consults: IP CONSULT TO INFECTIOUS DISEASES PHARMACY TO DOSE VANCO INPATIENT CONSULT TO CONTACT LENS BLOCKER AND CUTTER MEDICATIONS: Current Facility-Administered Medications: acetaminophen (Tylenol) tablet 650 mg, 650 mg, Oral, q4h PRN, Saira Meyer, [employer], 650 mg at 06/29/24 0443 cefepime (Maxipime) 2,000 mg in sodium chloride 0.9 % 50 mL IVPB Mini-Bag Plus, 2,000 mg, IntraVENous, q8h, Sayra Honeycutt MD, Last Rate: 12.5 mL/hr at 06/29/24 0808, 2,000 mg at 06/29/24 0808 hydrALAZINE (Apresoline) injection 10 mg, 10 mg, IntraVENous, q4h PRN, Erik Plaza III, MD ipratropium-albuterol (Duo-Neb) 0.5-2.5 mg/3 mL nebulizer solution 3 mL, 3 mL, Nebulization, TID PRN, Erik Plaza III, MD labetalol (Normodyne,Trandate) injection 10 mg, 10 mg, IntraVENous, q4h PRN, Erik Plaza III, MD magnesium sulfate IVPB premix 2,000 mg, 2,000 mg, IntraVENous, Once, Javed Carrillo MD morphine injection 2 mg, 2 mg, IntraVENous, q2h PRN OR morphine injection 4 mg, 4 mg, IntraVENous, q2h PRN, Saira A Orosz, [employer], 4 mg at 06/27/24 1503 naloxone (Narcan) injection 0.4 mg, 0.4 mg, IntraVENous, q5 min PRN, Jim Barcenas MD ondansetron ODT (Zofran-ODT) disintegrating tablet 4 mg, 4 mg, Oral, q8h PRN OR ondansetron (Zofran) injection 4 mg, 4 mg, IntraVENous, q6h PRN, Saira A Orosz, [employer], 4 mg at 06/27/24 1615 oxyCODONE (Roxicodone) immediate release tablet 5 mg, 5 mg, Oral, q4h PRN OR oxyCODONE (Roxicodone) immediate release tablet 10 mg, 10 mg, Oral, q4h PRN, Saira A Orosz, RETURNED GOODS INSPECTOR - MOT[employer] BUILDER W[employer], 10 mg at 06/27/24 1813 pantoprazole (ProtoNix) EC tablet 40 mg, 40 mg, Oral, Daily, Saira A Orosz, RETURNED GOODS INSPECTOR - [employer] BU[employer], 40 mg at 06/29/24 0808 polyethylene glycol (PEG) 3350 (Miralax) packet 17 g, 17 g, Oral, Daily, Javed Carrillo MD, 17 g at 06/29/24 0810 potassium phosphates 20 mmol in sodium chloride 0.9 % 250 mL IVPB, 20 mmol, IntraVENous, Once, Javed Carrillo MD sodium chloride 0.9 % infusion, 5-250 mL/hr, IntraVENous, PRN, Saira A Orosz, RETURNED GOODS INSPECTOR - [employer] BU[employer] sodium chloride 0.9% (NS) flush 5-40 mL, 5-40 mL, IntraVENous, 2 times per day, Saira A Orosz, RETURNED GOODS INSPECTOR - MOT[employer] BUILDER WINDER, 5 mL at 06/28/242038 sodium chloride 0.9% (NS) flush 5-40 mL, 5-40 mL, IntraVENous, PRN, Saira A Orosz, RETURNED GOODS INSPECTOR - [employer] BUILDER WINDER [COMPLETED] vancomycin (Vancocin) 1750 mg in NS 500 mL IVPB (premix), 1,750 mg, IntraVENous, Once, Last Rate: 250 mL/hr at 06/28/24 0830, 1,750 mg at 06/28/24829 FOLLOWED BY vancomycin IVPB 1000 mg in 200 mL NS (premix), 1,000 mg, IntraVENous, q12h, Sayra Honeycutt MD, Last Rate: 133.3 mL/hr at 06/29/24807, 1,000 mg at 06/29/24807 ARE THERE PERTINENT UPDATES TO PAST,FAMILY, OR SOCIAL HISTORY?: No Subjective: Pain well-controlled with current regimen. Denies of any nausea/emesis/numbness/Weakness Review of Systems as above unless otherwise stated below: PHQ In the last 2 weeks have you had: Little interest or pleasure in doing things No Been feeling down, depressed, or hopeless No If greater then 0, place CLP consult Date PHQ completed: 06/28/2024 Objective: Patient Vitals for the past 24 hrs: BP Temp Temp src Pulse Resp SpO2 Height Weight 06/29/24 0800 120/64 -- -- 83 19 92 % -- -- 06/29/24 0700 128/66 -- -- 87 22 98 % -- -- 06/29/24 0600 114/58 -- -- 86 20 98 % -- -- 06/29/24 0500 114/59 -- -- 84 19 97 % -- -- 06/29/24 0447 -- -- -- -- -- -- -- 178 lb 5.6 oz (80.9 kg) 06/29/24 0400 117/67 37.7 ?C (99.9 ?F) Temporal 91 20 98 % -- -- 06/29/24 0300 115/57 -- -- 91 23 97 % -- -- 06/29/24 0200 114/61 -- -- 93 23 (!) 88 % -- -- 06/29/24 0101 112/67 -- -- 100 20 94 % -- -- 06/29/24 0000 109/58 37.6 ?C (99.6 ?F) Temporal 98 23 93 % -- -- 06/28/24 2300 102/69 -- -- 104 23 96 % -- -- 06/28/24 2200 102/52 -- -- 103 22 97 % -- -- 06/28/24 2100 106/50 -- -- 95 24 98 % -- -- 06/28/24 2000 107/56 37.2 ?C (99 ?F) Temporal 100 25 96 % -- -- 06/28/24 1900 110/56 -- -- 101 19 92 % -- -- 06/28/24 1800 120/56 -- -- 100 (!) 26 96 % -- -- 06/28/24 1700 116/56 -- -- 99 24 98 % -- -- 06/28/24 1600 120/64 -- -- 116 22 (!) 86 % -- -- 06/28/24 1500 121/58 -- -- 99 23 93 % -- -- 06/28/24 1400 112/59 -- -- 98 22 95 % -- -- 06/28/24 1300 100/53 -- -- 97 22 98 % -- -- 06/28/24 1206 -- -- -- -- -- -- 5' 7.01 (1.702 m) -- 06/28/24 1200 134/87 36.9 ?C (98.4 ?F) -- 100 25 95 % -- -- 06/28/24 1100 110/66 -- -- 83 17 95 % -- -- 06/28/24 1000 102/85 -- -- 73 14 97 % -- -- Intake/Output Summary (Last 24 hours) at 06/29/2024 0946 Last data filed at 06/29/2024 0600 Gross per 24 hour Intake 2348 ml Output 2775 ml Net -427 ml No intake/output data recorded. Last BM: 06/26/24 Diet: regular CVP: No PHYSICAL: Physical Exam Vitals and nursing note reviewed. Constitutional: General: She is not in acute distress. Appearance: She is not toxic-appearing. HENT: Head: Normocephalic and atraumatic. Right Ear: External ear normal. Left Ear: External ear normal. Nose: Nose normal. No rhinorrhea. Mouth/Throat: Mouth: Mucous membranes are moist. Pharynx: No posterior oropharyngeal erythema. Eyes: General: Right eye: No discharge. Left eye: No discharge. Conjunctiva/sclera: Conjunctivae normal. Cardiovascular: Rate and Rhythm: Normal rate. Pulmonary: Effort: Pulmonary effort is normal. No respiratory distress. Breath sounds: No stridor. Abdominal: General: There is no distension. Palpations: Abdomen is soft. Tenderness: There is no abdominal tenderness. There is no guarding or rebound. Skin: General: Skin is warm. Capillary Refill: Capillary refill takes less than 2 seconds. Neurological: General: No focal deficit present. Mental Status: She is alert and oriented to person, place, and time. Mental status is at baseline. GCS: GCS eye subscore is 4. GCS verbal subscore is 5. GCS motor subscore is 6. Sensory: Sensation is intact. Motor: Motor function is intact. Comments: Left craniotomy incision with yao, CDI Psychiatric: Mood and Affect: Mood normal. Thought Content: Thought content normal. Sutures or yao? Yes O2: RA / / / Data Review Data CBC with Differential: Lab Results Component Value Date WBC 8.9 06/29/2024 RBC 3.59 (L) 06/29/2024 HGB 10.8 (L) 06/29/2024 HCT 32.9 (L) 06/29/2024 PLT 103 (L) 06/29/2024 CMP: Lab Results Component Value Date NA 140 06/29/2024 K 4.0 06/29/2024 CL 109 (H) 06/29/2024 CO2 25 06/29/2024 BUN 9 06/29/2024 CREATININE 0.61 06/29/2024 GLUCOSE 120 (H) 06/29/2024 CALCIUM 8.2 (L) 06/29/2024 BMP: Hepatic Function Panel:Ionized Calcium: No components found for: IONCA Magnesium: Lab Results Component Value Date MG 1.7 06/29/2024 Phosphorus: Lab Results Component Value Date PHOS 2.3 06/29/2024 PT/INR: Lab Results Component Value Date PROTIME 14.5 (H) 06/28/2024 INR 1.3 (H) 06/28/2024 PTT: No results found for: APTT[APTT Last 3 Troponin: No results found for: TROPONINI Urine Culture: No components found for: CURINE Blood Culture: No components found for: CBLOOD, CFUNGUSBL Blood Culture from Central Line: No components found for: CBLOODLN Stool Culture: No components found for: CSTOOL Sputum Culture: No components found for: CSPUTUM Sputum Culture for AFB: No components found for: CAFBSM Radiology: CT head wo IV contrast Result Date: 06/28/2024 Patient Name: CARLA SANCHEZ : 1950 [facility]#: [id number] Exam Date/Time: 06/28/2024 04:21 Procedure: CT HEAD WO IV CONTRAST Ordering Provider: MEYER JENNIFER Reason For Exam: s/p hemicraniectomy CT HEAD: CLINICAL INDICATION: Status post hemicraniectomy. TECHNIQUE: Transaxial CT sequence performed through the head with 3 mm reconstruction. Sagittal and Coronal reconstruction images included. Dose reduction was employed with automated exposure control. COMPARISON: 11/04/2021 FINDINGS: There are postsurgical changes of left hemicraniectomy. Along the inferior aspect of the craniectomy defect is a extra-axial collection measuring 3.3 x 0.8 x 2.7 cm. There is left frontal pneumocephalus. Ventricles and sulci are normal in size and configuration for age. There is a trace [id number] midline shift measuring [address] evidence of an acute large territorial infarction. Imaged paranasal sinuses and mastoid air cells are well aerated. Right-sided craniotomy noted with plate and screws. 1. Status post left hemicraniectomy with small extra-axial hematoma within the craniectomy defect measuring up to 3.3 x 0.8 cm. There is trace left to right midline shift measuring 3 mm. Report Dictated on Electronically Signed By: Pedro Nowak MD Electronically Signed Date/Time: 06/28/2024 4:36 AM EST Patient Active Problem List Diagnosis SDH (subdural hematoma) (HCC) Intracranial hemorrhage (HCC) Infected bone flap, initial encounter ([facility]) ASSESSMENT: Carla Sanchez is a 74 y.o. female status post left sided craniotomy for infected bone flap/hardware 06/23/[address] Barcenas. PLAN: Neuro / Spine - Pain control: scheduled oxycodone, PRN acetaminophen/morphine - Elevate HOB 30 degrees -Neurosurgery following -Neurochecks q.4 -HOB greater than 30 degrees -Okay to be transferred out of SICU per neurosurgery Cardiovascular - Hemodynamically stable - Labetalol/hydralazine prn - Telemetry Pulmonary - Standard O2 protocol - IS - Duonebs PRN FEN/GI - Regular diet - Zofran PRN - Daily BMP, CBC, Mg, Phos -MiraLAX daily -Discontinue Ngo catheter -Monitor I's and O's Endocrine - No acute issues Heme - Hgb stable - No transfusions indicated ID -Infectious disease consulted and following -On cefepime/vancomycin per ID -Cultures pending Lines/Devices: - PIV - Ngo Prophylaxis: DVT: SCDs Has DVT PPX been started? Yes If no, why? GI: pantoprazole Pressure Ulcer: Continue to monitor, q2 turns Musculoskeletal: - PT/OT - All extremities AT Disposition: transfer to floor discussed with Dr. Oscar BOJORQUEZ IM RESS NOTE Observed: 06/29/2024 9:38 AM Status: COMPLETED Source: [facility] Neurosurgery Progress Note: Patient seen and examined at bedside with RN present. No acute events. Dressing removed. Tolerating PO. Cultures pending, +S. Aureus. On my exam, she is a awake, alert, and oriented. PERRL. TM. FS. Speech fluent. BUE 5/5. BLE 5/5. SILT. Cranial dressing removed incision healing well. No drainage noted. POD#2 from left craniotomy for removal of infected bone flap and exposed hardware Recovering well, no surgical concerns CT brain reviewed, expected postop changes HOB >30 to assist with postop swelling Surgical cultures pending, +S. Aureus, ID following, remains on broad spectrum coverage Helmet ordered Appreciate ICU medical and supportive care Anticipate transfer out of the ICU soon given progress We will continue to follow Truman Nunez MD [facility] Neurosurgery PROGRESS NOTE Observed: 06/29/2024 7:32 AM Status: COMPLETED Source: [facility] Pharmacy to Dose Vancomycin - Progress Note Lab Results Component Value Date CREATININE 0.61 06/29/2024 BUN 9 06/29/2024 WBC 8.9 06/29/2024 VANCOTROUGH 14.3 06/29/2024 Doses, serum creatinine, and vancomycin levels interfaced automatically to [employer] and data has been analyzed and interpreted. Infectious Diagnosis: bone and joint infection, sepsis Est CrCl: >100 mL/min (Cockcroft-Gault) Assessment: Current regimen vancomycin 1000 mg every 12 hours (12.4 mg/kg) Predicted AUC = 496 mg/L*hr (goal 400-600 mg/L*hr) PAUC = 90% (probability that AUC is >400 mg/L*hr) Pconc = 4% (probability that Ctrough is above 20 mcg/mL (toxicity)) Plan: Is the current dose therapeutic? [x] Yes - obtain next level on 07/06/24 unless predicted AUC is sub-/supra-therapeutic or change in serum creatinine. Trend serum creatinine. Trend AUC using Bayesian Modeling. Orders placed. DATE: 06/29/24 TIME: 7:33 AM Dolly Chamorro [facility] Clinical Pharmacist Available via Secure Chat VANCOMYCIN, AUC TIMED DOSING Collected: 06/29/2024 4:39 AM Status: F Source: [facility] TYPE CODE TESTS RESULT OUT OF RANGE REFERENCE UNITS LAB [id number] VANCOMYCIN, AUC 14.3 ug/mL Result Comment: ORDER COMMEN TS: Please draw random level at least >2 hours after the end of the last vancomycin infusion, or 30-minutes before next infusion. Toxicity is seen at concentrations >80-100 ug/mL Therapeutic (Peak) range: 20-40 Therapeutic (Trough) range: 5-10 Performed By: #### [id number] ### # Prize Jacker: ARTURO TANNER ([id number]) [facility] ([address] CBC WITH AUTO DIFFERENTIAL Collected: 0 06/29/2024 12:09 AM Status: F Source: [facility] TYPE CODE TESTS RESULT OUT OF RANGE REFERENCE UNITS LAB [id number] WBC 8.9 3.6-10.7 10*3/uL LAB [id number] RBC 3.59 Low 3.80-5.20 10*6/uL LAB 2733850 HEMOGLOBIN 10.8 Low 11.7-16.0 g/dL LAB 1842482 HEMATOCRIT 32.9 Low 35.0-47.0 % LAB 5271223 MCV 91.6 77.0-99.0 fL LAB 6066559 MCH 30.1 26.0-34.0 pg LAB 3057336 MCHC 32.8 30.5-36.0 % LAB 2300440 RDW 14.4 11.5-15.0 % LAB 3504894 PLATELET COUNT 103 Low 140-440 10*3/uL LAB 2219145 MPV 11.0 9.0-12.7 fL LAB 254 NRBC 0.0 0.0-2.0 /100 WBCs LAB 7058454 NEUTROPHILS RELATIVE 79.3 38.0-82.0 % LAB 4114637 LYMPHOCYTES RELATIVE 10.6 Low 15.0-45.0 % LAB 0274845 MONOCYTES RELATIVE 8.0 5.0-13.0 % LAB 8968000 EOSINOPHILS RELATIVE 1.1 0.0-6.0 % LAB 0466203 BASOPHILS RELATIVE 0.2 0.0-2.0 % LAB 4476788 IMMATURE GRANS % 0.8 0.0-2.0 % LAB 9701688 NEUTROPHILS ABSOLUTE 7.0 1.8-7.5 10*3/uL LAB 9448019 LYMPHOCYTES ABSOLUTE 0.9 Low 1.0-4.3 10*3/uL LAB 3091025 MONOCYTES ABSOLUTE 0.7 0.0-0.9 10*3/uL LAB 3678003 EOSINOPHILS ABSOLUTE 0.1 0.0-0.5 10*3/uL LAB 2052656 BASOPHILS ABSOLUTE 0.0 0.0-0.2 10*3/uL LAB 560306 IMMATURE GRANS ABSOLUTE 0.1 High <0.1 10*3/uL LAB 6204661 IPF 2 Performed By: #### [id number] # ### Prize Jacker: ARTURO TANNER ([phone]) [address] PHOSPHORUS Collected: 5 12:09 AM Status: F Source: [facility] TYPE CODE TESTS RESULT OUT OF RANGE REFERENCE UNITS LAB [id number] PHOSPHORUS 2.3 2.3-4.7 mg/dL Performed By: #### [id number], L AB15, [id number] #### Prize Jacker: ARTURO TANNER ([id number]) [facility] ([address] BASIC METABOLIC PANEL Collected: 2024 12:09 AM Status: F Source: [facility] TYPE CODE TESTS RESULT OUT OF RANGE REFERENCE UNITS LAB [id number] SODIUM 140 136-145 mmol/L LAB 6118333 POTASSIUM 4.0 3.5-5.1 mmol/L Result Comment: Plasma potas sium values may be up to 0.5 mmol/L lower than serum values. LAB 1771160 CHLORIDE 109 High 98-107 mmol/L LAB 0708880 CARBON DIOXIDE 25 23-31 mmol/L LAB 4933481 UREA NITROGEN 9 9-23 mg/dL LAB 4927453 CREATININE 0.61 0.57-1.11 mg/dL LAB 7226345 GLUCOSE 120 High 82-115 mg/dL LAB 7633604 CALCIUM 8.2 Low 8.8-10.0 mg/dL LAB [id number] ANION GAP (VALLE, CALCULATED) 6 3-13 mmol/L LAB 9906746 GLOMERULAR FILTRATION RATE ML/MIN/1.73 SQ M.PREDICTED >90.0 >60.0 mL/min/1. 73m*2 Result Comment: Calculation based on the Chronic Kidney Disease Epidemiology Collaboration (CKD-EPI) equation refit without adjustment for race Performed By: #### [id number], L AB15, [id number] #### Prize Jacker: ARTURO TANNER ([id number]) [address] MAGNESIUM Collected: 12:09 AM Status: F Source: [facility] TYPE CODE TESTS RESULT OUT OF RANGE REFERENCE UNITS LAB [id number] MAGNESIUM 1.7 1.6-2.6 mg/dL Result Comment: ORDER COMMEN TS: Higher values can be expected in females during menses. Performed By: #### [id number], L AB15, [id number] #### Prize Jacker: ARTURO TANNER ([id number]) [address] PROGRESS NOTE Observed: 06/28/2024 2:31 PM Status: COMPLETED Source: [facility] Nutrition Assessment Type and Reason for Visit: Initial Nutrition Recommendations/Plan: Continue with Regular diet. Ordered Vanilla and Chocolate Ensure Plus on lunch and dinner via MNT protocol. Monitor nutritional status. Malnutrition Assessment: Malnutrition Status: Insufficient data Context: Acute Illness Findings of the 6 clinical characteristics of malnutrition: Energy Intake: Mild decrease in energy intake (Comment) Weight Loss: No significant weight loss Body Fat Loss: No significant body fat loss Muscle Mass Loss: No significant muscle mass loss Fluid Accumulation: No significant fluid accumulation [employer] Strength: Not Performed Nutrition Assessment: Pt is a 74-year-old female with PMH significant for cholangitis. E coli/ C perfringens BSI managed through [facility] in 10/2023 (cipro/flagyl) with PTHC and ultimately internal biliary stent, hx ESBL Klebsiella BSI/ cholangitis (ertapenem 08/2023), hx Ortega-en-Y gastric bypass (2021), hx SDH remotely (2013 or 2014) with previous craniotomy--> developed an acute SDH in 09/2021 requiring joanie hole drainage by Dr. Barcenas along with MMA embolization. She presented to Neurosurgery outpatient in 04/2024 with an area of the L forehead with exposed metal with bleeding. A CT was ordered given it was not in the region of the 2021 procedures. It showed craniotomy flaps on the right and left; + hardware for the L craniotomy flap appears very close to the level of skin. She underwent L craniectomy of all hardware and bone flap on 06/[address] Barcenas. The underside of the scalp had purulent material that was cultured. Epidural space, joanie hole, and bone flap were all sent for cx. She received clindamycin perioperatively. RD visited pt; she endorses good p.o intake BELL RINGER, in good spirits, no chewing/swallowing issues, 2 meals/day, would try Ensure (chocolate one time, vanilla another). Estimated Daily Nutrient Needs: Energy Requirements Based On: Kcal/kg Weight Used for Energy Requirements: [place] Weight for Energy Calculation (kg): 61.3 kg Total Energy Requirements (kcals/day): 25-30 kcals/kg = 3486-4956 kcals/day Weight Used for Protein Requirements: [place] Weight in Kg Used for Protein Requirements: 61.3 kg Estimated Total Protein (g/day): 1.1-1.3g protein/kg IBW = 67-80g protein/day Estimated Daily Total Fluid (ml/day): 1532 mls Nutrition Related Findings: Net IO Since Admission: 1,788.48 mL [06/28/24 1431] Lives with: Alone, Primary Caregiver: Self Orientation Level: Oriented X4, Cognition: Follows commands, Best Verbal Response: Oriented, Teeth: Dentures upper Swallow: Able to swallow solids and liquids without difficulty Brennon Scale Score: 20. Gastrointestinal (WDL): Within Defined Limits Bowel Sounds (All Quadrants): Active Abdomen Inspection: Soft, Nondistended , , Edema: , RUE Edema: None, LUE Edema: None, RLE Edema: None, LLE Edema: None Oxygen Therapy: Supplemental oxygen, O2 Delivery Method: Nasal cannula, O2 Flow Rate (L/min): 2 L/min Meds reviewed: Scheduled: cefepime, 2,000 mg, IntraVENous, q8h pantoprazole, 40 mg, Oral, Daily polyethylene glycol (PEG) 3350, 17 g, Oral, Daily sodium chloride 0.9%, 5-40 mL, IntraVENous, 2 times per day vancomycin, 1,000 mg, IntraVENous, q12h Current Nutrition Therapies: Adult diet Regular Current Oral Intake Average Meal Intake: 76-100% Average Supplements Intake: None Ordered Anthropometric Measures: Height: 170.2 cm (5' 7.01) Current Body Weight: 79.6 kg (175 lb 7.8 oz) (06/23/24) Weight Source: Standing Scale (06/23/24) [place] Body Weight (lbs) (Calculated): 135 lbs [place] Body Weight (Kg) (Calculated): 61 kg % [place] Body Weight (Calculated): 130 % BMI (kg/m2) (Calculated): 27.5 BMI Categories: Overweight (BMI 25.0-29.9) Wt Readings from Last 10 Encounters: 06/23/24 79.6 kg (175 lb 6.4 oz) 05/12/24 79.4 kg (175 lb) 04/21/24 78 kg (172 lb) 11/16/21 78.2 kg (172 lb 6.4 oz) 09/28/21 81.6 kg (180 lb) 12/25/19 93.4 kg (205 lb 12.8 oz) 11/27/19 94.9 kg (209 lb 3.2 oz) TPN LABS: Recent Labs 06/28/24 0020 NA 137 K 5.0 CL 106 CO2 25 BUN 9 CREATININE 0.64 GLUCOSE 150* CALCIUM 8.2* Nutrition Diagnosis: Increased nutrient needs related to (s/p craniectomy) as evidenced by wounds Nutrition Interventions: Nutrition Education/Counseling: Education not indicated Coordination of Nutrition Care: Continue to monitor while inpatient Goals: Goals: PO intake 75% or greater, by next RD assessment Nutrition Monitoring and Evaluation: Food/Nutrient Intake Outcomes: Food and Nutrient Intake, Supplement Intake Physical Signs/Symptoms Outcomes: Biochemical Data, GI Status, Weight, Skin, Nutrition Focused Physical Findings, Hemodynamic Status, Fluid Status or Edema Discharge Planning: Too soon to determine Faith Newby RD,LD[facility] Contact: *[phone] or Tier 1 Performance PROGRESS NOTE Observed: 06/28/2024 10:47 AM Status: COMPLETED Source: [employer] [facility] Attestation signed by Carlin Stinson MD at 06/29/2024 10:44 AM ATTENDING ADDENDUM Active Diagnoses/Problems this Admission: Patient Active Problem List Diagnosis SDH (subdural hematoma) (HCC) Intracranial hemorrhage (HCC) Infected bone flap, initial encounter ([facility]) I personally supervised the resident physician in the evaluation and development of a treatment plan for this patient on the same day of service as above. I personally discussed the review of systems and interviewed the patient along with performing a physical examination. I reviewed the recent events, imaging, labs, vital signs. In addition, I discussed the patient's condition and treatment options with him/her when possible. I have also reviewed and agree with the past medical, family, and social history unless otherwise noted. All of the patient's questions were answered and family updated when appropriate and possible. A complete review of systems was obtained and is negative except as stated in HPI and/or Subjective Section. 74F w/ PMH as below, underwent L craniotomy for removal of infected bone flap and exposed hardware 06/27, admitted to SICU postop PLAN: - rCTH w/ expected postop changes - keep HOB@30 - fu helmet fitting - goal SBP< 150 mmHg - PRN Labetalol and Hydralazine - multimodal pain control - reg diet, bowel reg - dc ngo, void check, strict I/Os - infected bone flap: ID following, cont vanc/zosyn, fu OR cultures - hold DVT ppx - PT/OT Dispo: T2 SICU Level of Medical Decision Making: [x]High []Moderate []Low Complexity: Acute or chronic illness posing a threat to life (HIGH) Risk: Parental controlled substances (HIGH) Prescription drug management (MOD) Personally Reviewed/Independently interpreted patient's: [x]Epic notes [x]Radiology studies [x]Labs []EKG []Ordering tests []Other Discussed/ With: [x]Patient/Family [x]RN []Consultants [x]Primary []SW/TCC []Other I spent total time of 50 minutes reviewing previous notes, test results, and face to face with Carla Sanchez discussing the diagnosis and importance of compliance with the treatment plan as well as documenting on the day of the visit. Time was spent, Reviewing medical record including recent tests and results Ordering prescription medications/tests and procedures Communicating results to the patient/family/caregiver Counseling/educating the patient/family/caregiver Documenting clinical information the patient's electronic record Coordination of care for the patient Performing a medical appropriate exam and evaluation Carlin Stinson MD, FACS Trauma, Surgical Critical Care, & General Surgery Division of Trauma Department of Surgery [facility] Daily SICU Progress Note Resident 06/28/2024 10:47 AM Admit Date: 06/27/2024 HPI: Carla Sanchez is a 74 y.o. female with a past medical history of craniotomy in past, diverticulitis, PUD who underwent L craniotomy for removal of infected bone flap and exposed hardware on 06/[address] Barcenas. PROCEDURES: Left craniotomy for removal of infected bone flap/exposed hardware 06/23/2024 INCIDENTAL FINDINGS: N/A CHIEF COMPLAINT: Infected bone flap PREVIOUS 24 HOUR EVENTS: Admitted to SICU postoperatively for neurochecks Consults: IP CONSULT TO INFECTIOUS DISEASES PHARMACY TO DOSE VANCO INPATIENT CONSULT TO CONTACT LENS BLOCKER AND CUTTER MEDICATIONS: Current Facility-Administered Medications: acetaminophen (Tylenol) tablet 650 mg, 650 mg, Oral, q4h PRN, Saira Welch Orosz, RETURNED GOODS INSPECTOR - MOTOR BUILDER WINDER, 650 mg at 06/28/24 0744 cefepime (Maxipime) 2,000 mg in sodium chloride 0.9 % 50 mL IVPB Mini-Bag Plus, 2,000 mg, IntraVENous, q8h, Sayra Honeycutt MD, Last Rate: 12.5 mL/hr at 06/28/24 0941, 2,000 mg at 06/28/24 0941 hydrALAZINE (Apresoline) injection 10 mg, 10 mg, IntraVENous, q4h PRN, Erik Plaza III, MD ipratropium-albuterol (Duo-Neb) 0.5-2.5 mg/3 mL nebulizer solution 3 mL, 3 mL, Nebulization, TID PRN, Erik Plaza III, MD labetalol (Normodyne,Trandate) injection 10 mg, 10 mg, IntraVENous, q4h PRN, Erik Plaza III, MD morphine injection 2 mg, 2 mg, IntraVENous, q2h PRN OR morphine injection 4 mg, 4 mg, IntraVENous, q2h PRN, Saira Meyer, RETURNED [employer] INSPECTOR - [employer] BUILDER [employer], 4 mg at 06/27/24 1503 naloxone (Narcan) injection 0.4 mg, 0.4 mg, IntraVENous, q5 min PRN, Jim Barcenas MD ondansetron ODT (Zofran-ODT) disintegrating tablet 4 mg, 4 mg, Oral, q8h PRN OR ondansetron (Zofran) injection 4 mg, 4 mg, IntraVENous, q6h PRN, Saira Dominguezsz, RETURNED GOODS INSPECTOR - MOT[employer] BUILDER W[employer]ER, 4 mg at 06/27/24 1615 oxyCODONE (Roxicodone) immediate release tablet 5 mg, 5 mg, Oral, q4h PRN OR oxyCODONE (Roxicodone) immediate release tablet 10 mg, 10 mg, Oral, q4h PRN, Saira A Orosz, RETURNED GOODS INSPECTOR - MOT[employer] BUILDER [employer]ER, 10 mg at 06/27/24 1813 pantoprazole (ProtoNix) EC tablet 40 mg, 40 mg, Oral, Daily, Saira A Orosz, RETURNED GOODS INSPECTOR - MOT[employer] BUILDER [employer]ER, 40 mg at 06/28/24 0900 polyethylene glycol (PEG) 3350 (Miralax) packet 17 g, 17 g, Oral, Daily PRN, Saira A Orosz, RETURNED GOODS INSPECTOR - MOT[employer] BUILDER W[employer]ER polyethylene glycol (PEG) 3350 (Miralax) packet 17 g, 17 g, Oral, Daily PRN, Saira A Orosz, RETURNED GOODS INSPECTOR - MOTOR [employer] sodium chloride 0.9 % infusion, 5-250 mL/hr, IntraVENous, PRN, Saira A Orosz, RETURNED [employer] INSPECTOR - [employer] sodium chloride 0.9% (NS) flush 5-40 mL, 5-40 mL, IntraVENous, 2 times per day, Saira A Orosz, RETURNED [employer] INSPECTOR - [employer] sodium chloride 0.9% (NS) flush 5-40 mL, 5-40 mL, IntraVENous, PRN, Saira A Orosz, RETURNED GOODS INSPECTOR - [employer] [COMPLETED] vancomycin (Vancocin) 1750 mg in NS 500 mL IVPB (premix), 1,750 mg, IntraVENous, Once, Last Rate: 250 mL/hr at 06/28/24 0830, 1,750 mg at 06/28/24 0830 FOLLOWED BY vancomycin IVPB 1000 mg in 200 mL NS (premix), 1,000 mg, IntraVENous, q12h, Sayra Honeycutt MD ARE THERE PERTINENT UPDATES TO PAST,FAMILY, OR SOCIAL HISTORY?: No Subjective: Pain well-controlled with current regimen. Denies of any nausea/emesis/numbness/Weakness Review of Systems as above unless otherwise stated below: PHQ In the last 2 weeks have you had: Little interest or pleasure in doing things No Been feeling down, depressed, or hopeless No If greater then 0, place CLP consult Date PHQ completed: 06/28/2024 Objective: Patient Vitals for the past 24 hrs: BP Temp Temp src Pulse Resp SpO2 06/28/24 0900 (!) 95/49 -- -- 77 12 98 % 06/28/24 0800 102/85 -- -- 84 21 98 % 06/28/24 0700 91/52 -- -- 76 13 95 % 06/28/24 0600 91/52 -- -- 64 19 98 % 06/28/24 0500 97/51 -- -- 63 18 99 % 06/28/24 0405 (!) 89/47 -- -- 73 15 97 % 06/28/24 0400 (!) 93/39 36.5 ?C (97.7 ?F) Temporal 59 13 99 % 06/28/24 0300 (!) 110/42 -- -- 70 15 98 % 06/28/24 0200 90/51 -- -- 60 13 98 % 06/28/24 0100 (!) 98/47 -- -- 59 15 99 % 06/28/24 0002 101/55 -- -- 67 12 99 % 06/28/24 0000 (!) 79/61 36.3 ?C (97.4 ?F) Temporal 61 (!) 10 99 % 06/27/24 2300 103/64 -- -- 63 (!) 10 97 % 06/27/24 2203 (!) 104/43 -- -- 89 18 98 % 06/27/24 2200 (!) 90/45 -- -- 61 19 98 % 06/27/24 2100 91/55 -- -- 61 (!) 9 98 % 06/27/242 93/55 -- -- 60 (!) 9 98 % 06/27/241999 (!) 101/44 36.6 ?C (97.9 ?F) Temporal 64 12 96 % 06/27/24 1903 104/52 -- -- 88 14 98 % 06/27/24 1900 -- -- -- 79 24 99 % 06/27/24 1800 109/61 -- -- 90 (!) 26 95 % 06/27/24 1700 104/63 -- -- 62 (!) 10 100 % 06/27/24 1600 107/70 36.6 ?C (97.8 ?F) Temporal 64 13 100 % 06/27/24 1545 103/59 -- -- 70 (!) 11 100 % 06/27/24 1530 108/53 -- -- 63 (!) 11 99 % 06/27/24 1515 110/54 -- -- 73 15 100 % 06/27/24 1500 118/73 -- -- 63 12 100 % 06/27/24 1445 111/66 -- -- 64 12 99 % 06/27/24 1430 101/60 -- -- 73 13 95 % 06/27/24 1415 102/53 -- -- 64 14 92 % 06/27/24 1400 (!) 97/49 -- -- 71 13 90 % 06/27/24 1345 108/60 -- -- 66 13 91 % 06/27/24 1333 112/70 36.1 ?C (97 ?F) -- 81 19 98 % 06/27/24 1330 112/70 36.2 ?C (97.2 ?F) Temporal 84 17 97 % Intake/Output Summary (Last 24 hours) at 06/28/2024 1047 Last data filed at 06/28/2024 1000 Gross per 24 hour Intake 4573.48 ml Output 2785 ml Net 1788.48 ml I/O this shift: In: 740 [P.O.:740] Out: 700 [Urine:700] Last BM: 06/26/24 Diet: regular CVP: No PHYSICAL: Physical Exam Vitals and nursing note reviewed. Constitutional: General: She is not in acute distress. Appearance: She is not toxic-appearing. HENT: Head: Normocephalic and atraumatic. Right Ear: External ear normal. Left Ear: External ear normal. Nose: Nose normal. No rhinorrhea. Mouth/Throat: Mouth: Mucous membranes are moist. Pharynx: No posterior oropharyngeal erythema. Eyes: General: Right eye: No discharge. Left eye: No discharge. Conjunctiva/sclera: Conjunctivae normal. Cardiovascular: Rate and Rhythm: Normal rate. Pulmonary: Effort: Pulmonary effort is normal. No respiratory distress. Breath sounds: No stridor. Abdominal: General: There is no distension. Palpations: Abdomen is soft. Tenderness: There is no abdominal tenderness. There is no guarding or rebound. Skin: General: Skin is warm. Capillary Refill: Capillary refill takes less than 2 seconds. Neurological: General: No focal deficit present. Mental Status: She is alert and oriented to person, place, and time. Mental status is at baseline. GCS: GCS eye subscore is 4. GCS verbal subscore is 5. GCS motor subscore is 6. Sensory: Sensation is intact. Motor: Motor function is intact. Comments: Left craniotomy incision with yao, CDI Psychiatric: Mood and Affect: Mood normal. Thought Content: Thought content normal. Sutures or yao? Yes O2: RA / / / Data Review Data CBC with Differential: Lab Results Component Value Date WBC 10.1 06/28/2024 RBC 4.04 06/28/2024 HGB 12.1 06/28/2024 HCT 37.7 06/28/2024 PLT 134 (L) 06/28/2024 CMP: Lab Results Component Value Date NA 137 06/28/2024 K 5.0 06/28/2024 CL 106 06/28/2024 CO2 25 06/28/2024 BUN 9 06/28/2024 CREATININE 0.64 06/28/2024 GLUCOSE 150 (H) 06/28/2024 CALCIUM 8.2 (L) 06/28/2024 BMP: Hepatic Function Panel:Ionized Calcium: No components found for: IONCA Magnesium: No results found for: MG Phosphorus: No results found for: PHOS PT/INR: Lab Results Component Value Date PROTIME 14.5 (H) 06/28/2024 INR 1.3 (H) 06/28/2024 PTT: No results found for: APTT[APTT Last 3 Troponin: No results found for: TROPONINI Urine Culture: No components found for: CURINE Blood Culture: No components found for: CBLOOD, CFUNGUSBL Blood Culture from Central Line: No components found for: CBLOODLN Stool Culture: No components found for: CSTOOL Sputum Culture: No components found for: CSPUTUM Sputum Culture for AFB: No components found for: CAFBSM Radiology: CT head wo IV contrast Result Date: 06/28/2024 Patient Name: CARLA SANCHEZ : 1950 Exam Date/Time: 06/28/2024 04:21 Procedure: CT HEAD WO IV CONTRAST Ordering Provider: MEYER JENNIFER Reason For Exam: s/p hemicraniectomy CT HEAD: CLINICAL INDICATION: Status post hemicraniectomy. TECHNIQUE: Transaxial CT sequence performed through the head with 3 mm reconstruction. Sagittal and Coronal reconstruction images included. Dose reduction was employed with automated exposure control. COMPARISON: 11/04/2021 FINDINGS: There are postsurgical changes of left hemicraniectomy. Along the inferior aspect of the craniectomy defect is a extra-axial collection measuring 3.3 x 0.8 x 2.7 cm. There is left frontal pneumocephalus. Ventricles and sulci are normal in size and configuration for age. There is a trace vvkk-kk-txkws midline shift measuring [address] evidence of an acute large territorial infarction. Imaged paranasal sinuses and mastoid air cells are well aerated. Right-sided craniotomy noted with plate and screws. 1. Status post left hemicraniectomy with small extra-axial hematoma within the craniectomy defect measuring up to 3.3 x 0.8 cm. There is trace left to right midline shift measuring 3 mm. Report Dictated on Electronically Signed By: Pedro Nowak MD Electronically Signed Date/Time: 06/28/2024 4:36 AM EST Patient Active Problem List Diagnosis SDH (subdural hematoma) (HCC) Intracranial hemorrhage (HCC) Infected bone flap, initial encounter ([facility]) ASSESSMENT: Carla Sanchez is a 74 y.o. female status post left sided craniotomy for infected bone flap/hardware 06/23/[address] Barcenas. PLAN: Neuro / Spine - Pain control: scheduled oxycodone, PRN acetaminophen/morphine - Elevate HOB 30 degrees -Neurosurgery following -Neurochecks -HOB greater than 30 degrees Cardiovascular - Hemodynamically stable - Labetalol/hydralazine prn - Telemetry -Mildly hypotensive overnight, will bolus with normal saline PRN Pulmonary - Standard O2 protocol - IS - Duonebs PRN FEN/GI - Regular diet - Zofran PRN - Daily BMP, CBC, Mg, Phos -MiraLAX daily -Discontinue Ngo catheter -Monitor I's and O's Endocrine - No acute issues Heme - Hgb stable - No transfusions indicated ID -Infectious disease consulted and following -On cefepime/vancomycin per ID -Cultures pending Lines/Devices: - PIV - Ngo Prophylaxis: DVT: SCDs Has DVT PPX been started? Yes If no, why? GI: pantoprazole Pressure Ulcer: Continue to monitor, q2 turns Musculoskeletal: - PT/OT - All extremities AT Disposition: remain in SICU RESS NOTE Observed: 06/28/2024 9:03 AM Status: COMPLETED Source: [facility] Neurosurgery Progress Note: Patient seen and examined at bedside this AM. No acute events overnight. Endorses mild headache. No nausea. We discussed her procedure and anticipated hospital course. On my exam, she is a awake, alert, and oriented. PERRL. TM. FS. Speech fluent. BUE 5/5. BLE 5/5. SILT. Cranial dressing c/d/I. POD#1 from left craniotomy for removal of infected bone flap and exposed hardware Recovering well, no surgical concerns CT brain reviewed, expected postop changes, no further imaging necessary HOB >30 to assist with postop swelling Surgical cultures pending, ID following, plan to continue broad spectrum coverage until finalized Helmet delivery pending Appreciate ICU medical and supportive care We will continue to follow Truman Nunez MD [facility] Neurosurgery CONSULT Observed: 06/28/2024 7:45 AM Status: COMPLETED Source: [facility] Pharmacy Managed Vancomycin Dosing Service Consult Note Consult Date: 06/28/24 Patient Name: Carla Sanchez Allergies: Ibuprofen, Penicillins, and Prednisone Age: 74 y.o. Sex: female Estimated body mass index is 27.47 kg/m? as calculated from the following: Height as of 06/23/24: 1.702 m (5' 7). Weight as of 06/23/24: 79.6 kg (175 lb 6.4 oz). DW: 79.6 kg Lab Results Component Value Date CREATININE 0.64 06/28/2024 CREATININE 0.74 06/23/2024 BUN 9 06/28/2024 BUN 11 06/23/2024 WBC 10.1 06/28/2024 WBC 7.3 06/23/2024 Calculated CrCl: 98 mL/min (Cockcroft-Gault) Consulted By: Sayra Honeycutt MD Infectious Diagnosis: bone and joint infection, sepsis (AUC Goal 400-600 mg/L*hr) Random Vancomycin Level Due: 06/29/24 Antimicrobials: Patient recently received an antibiotic (last 12 hours) Date/Time Action Medication Dose Rate 06/28/24 0203 New Bag clindamycin in D5W (Cleocin) IVPB 900 mg 900 mg 50 mL/hr Assessment/Plan: Doses, serum creatinine, and vancomycin levels interfaced automatically to [employer] and data has been analyzed and interpreted. Start Vancomycin 1750 mg once as loading dose, followed by Vancomycin 1000 every 12 hours based on patient age, weight, renal function, and infectious diagnosis (12.6 mg/kg). Predicted AUC = 505 mg/L*hr (goal 400-600 mg/L*hr) PAUC = 77% (probability that AUC is >400 mg/L*hr) Pconc = 17% (probability that Ctrough is above 20 mcg/mL (toxicity)) Will assess random level on 06/29/24 with AM labs and adjust as appropriate. Trend serum creatinine. Orders placed. Thank you for this consult. Please secure text or call with questions. DATE: 06/28/24 TIME: 7:46 AM Dolly Chamorro RPh Clinical Pharmacist Available via Secure Chat CONSULT Observed: 06/28/2024 7:31 AM Status: COMPLETED Source: [facility] - Infectious Diseases Attending Consult Note Reason for Consult: S/p hemicraniectomy for exposed hardware History of Present Illness: 74 y/o F with hx of cholangitis. E coli/ C perfringens BSI managed through [facility] in 10/2023 (cipro/flagyl) with PTHC and ultimately internal biliary stent, hx ESBL Klebsiella BSI/ cholangitis (ertapenem 08/2023), hx Ortega-en-Y gastric bypass (2021), hx SDH remotely (2013 or 2014) with previous craniotomy--> developed an acute SDH in 09/2021 requiring joanie hole drainage by Dr. Barcenas along with MMA embolization. She presented to Neurosurgery outpatient in 04/2024 with an area of the L forehead with exposed metal with bleeding. A CT was ordered given it was not in the region of the 2021 procedures. It showed craniotomy flaps on the right and left; + hardware for the L craniotomy flap appears very close to the level of skin. She underwent L craniectomy of all hardware and bone flap on 06/[address] Barcenas. The underside of the scalp had purulent material that was cultured. Epidural space, bur hole, and bone flap were all sent for cx. She received clindamycin perioperatively. She has tolerated cefazolin with her surgery in 2021 and carbapenems by [facility] records. Past Medical History: Past Medical History: Diagnosis Date Anemia Arthritis Brain bleed (HCC) 2013, 2021 Diverticulitis Gastric ulcer Leg fracture, right Right arm fracture Seizures ([facility]) 2013 with first craniotomy- while in hospital- none since Thoracic spine fracture ([facility]) Past Surgical History: Past Surgical History: Procedure Laterality Date ABDOMINAL SURGERY 07/2021 on stomach CHOLECYSTECTOMY COLONOSCOPY CRANIOTOMY Left 2013 DILATION AND CURETTAGE OF UTERUS HAND SURGERY Right fracture repiair SMALL INTESTINE SURGERY small part removed UPPER GASTROINTESTINAL ENDOSCOPY Current Medications: Current Facility-Administered Medications Medication Dose Route Frequency Provider Last Rate Last Admin acetaminophen (Tylenol) tablet 650 mg 650 mg Oral q4h PRN Saira Welch Orosz, RETURNED GOODS INSPECTOR - [employer] 650 mg at 06/28/24 0005 hydrALAZINE (Apresoline) injection 10 mg 10 mg IntraVENous q4h PRN Erik Plaza III, MD ipratropium-albuterol (Duo-Neb) 0.5-2.5 mg/3 mL nebulizer solution 3 mL 3 mL Nebulization TID PRN Erik Plaza III, MD labetalol (Normodyne,Trandate) injection 10 mg 10 mg IntraVENous q4h PRN Erik Plaza III, MD morphine injection 2 mg 2 mg IntraVENous q2h PRN Saira Welch Orosz, RETURNED GOODS INSPECTOR - [employer] Or morphine injection 4 mg 4 mg IntraVENous q2h PRN Saira Welch Orosz, RETURNED GOODS INSPECTOR - [employer] 4 mg at 06/27/24 1503 naloxone (Narcan) injection 0.4 mg 0.4 mg IntraVENous q5 min PRN Jim Barcenas MD ondansetron ODT (Zofran-ODT) disintegrating tablet 4 mg 4 mg Oral q8h PRN Saira A Orosz, RETURNED GOODS INSPECTOR - [employer] Or ondansetron (Zofran) injection 4 mg 4 mg IntraVENous q6h PRN Saira A Orosz, RETURNED GOODS INSPECTOR - [employer] 4 mg at 06/27/24 1615 oxyCODONE (Roxicodone) immediate release tablet 5 mg 5 mg Oral q4h PRN Saira A Orosz, RETURNED GOODS INSPECTOR - [employer] Or oxyCODONE (Roxicodone) immediate release tablet 10 mg 10 mg Oral q4h PRN Saira A Orosz, RETURNED GOODS INSPECTOR - [employer] 10 mg at 06/27/24 1813 pantoprazole (ProtoNix) EC tablet 40 mg 40 mg Oral Daily Saira A Orosz, RETURNED GOODS INSPECTOR - [employer] 40 mg at 06/27/24 1349 polyethylene glycol (PEG) 3350 (Miralax) packet 17 g 17 g Oral Daily PRN Saira A Orosz, RETURNED GOODS INSPECTOR - [employer] polyethylene glycol (PEG) 3350 (Miralax) packet 17 g 17 g Oral Daily PRN Saira A Orosz, RETURNED GOODS INSPECTOR - [employer] sodium chloride 0.9 % infusion 75 mL/hr IntraVENous Continuous Saira A Orosz, RETURNED GOODS INSPECTOR - [employer] 75 mL/hr at 06/27/24 1343 75 mL/hr at 06/27/24 1343 sodium chloride 0.9 % infusion 5-250 mL/hr IntraVENous PRN Saira A Orosz, RETURNED GOODS INSPECTOR - [employer] sodium chloride 0.9% (NS) flush 5-40 mL 5-40 mL IntraVENous 2 times per day Saira A Orosz, RETURNED GOODS INSPECTOR - [employer] sodium chloride 0.9% (NS) flush 5-40 mL 5-40 mL IntraVENous PRN Saira A Orosz, RETURNED GOODS INSPECTOR - [employer] Allergies: Allergies Allergen Reactions Ibuprofen Other Reaction(s): Other, Other (See Comments), Unknown Unable to take 2nd to risk of GI and brain bleed per pt Penicillins Rash Other Reaction(s): Unknown Prednisone Rash Other Reaction(s): Unknown Social History: Social History Socioeconomic History Marital status: Spouse name: Not on file Number of children: Not on file Years of education: Not on file Highest education level: Not on file Occupational History Not on file Tobacco Use Smoking status: Former Current packs/day: 0.00 Types: Cigarettes Quit date: 10/27/2019 Years since quittin.6 Smokeless tobacco: Never Vaping Use Vaping status: Never Used Substance and Sexual Activity Alcohol use: Yes Alcohol/week: 1.0 standard drink of alcohol Types: 1 Standard drinks or equivalent per week Comment: rare-holidays or special occ Drug use: Not Currently Sexual activity: Not on file Other Topics Concern Not on file Social History Narrative Not on file Social Drivers of Health Financial Resource Strain: Low Risk (08/12/2023) Received from [facility] Overall Financial Resource Strain (CARDIA) Difficulty of Paying Living Expenses: Not hard at all Food Insecurity: No Food Insecurity (10/24/2023) Received from [facility] Hunger Vital Sign Worried About Running Out of Food in the Last Year: Never true Ran Out of Food in the Last Year: Never true Transportation Needs: No Transportation Needs (10/24/2023) Received from [facility] PRAPARE - Transportation Lack of Transportation (Medical): No Lack of Transportation (Non-Medical): No Physical Activity: Not on file Stress: Not on file Social Connections: Not on file Intimate Partner Violence: Not At Risk (06/27/2024) Humiliation, Afraid, Rape, and Kick questionnaire Fear of Current or Ex-Partner: No Emotionally Abused: No Physically Abused: No Sexually Abused: No Housing Stability: Low Risk (10/24/2023) Received from [facility] Housing Stability Vital Sign Unable to Pay for Housing in the Last Year: No Number of Places Lived in the Last Year: 1 Unstable Housing in the Last Year: No Family History: Family History Problem Relation Name Age of Onset Breast cancer Mother Heart disease Father Review of Systems: Review of Systems Constitutional: Positive for activity change and fatigue. Negative for fever. HENT: Negative for congestion and mouth sores. Eyes: Negative for redness and visual disturbance. Respiratory: Negative for cough and shortness of breath. Cardiovascular: Negative for chest pain and leg swelling. Gastrointestinal: Negative for abdominal pain and diarrhea. Genitourinary: Negative for flank pain and frequency. Musculoskeletal: Negative for back pain and joint swelling. Skin: Positive for wound. Negative for rash. Allergic/Immunologic: Negative for immunocompromised state. Neurological: Positive for weakness and headaches. Hematological: Negative for adenopathy. Bruises/bleeds easily. Psychiatric/Behavioral: Negative. Vitals: Patient Vitals for the past 24 hrs: BP Temp Temp src Pulse Resp SpO2 06/28/24 0700 91/52 -- -- 76 13 95 % 06/28/24 0600 91/52 -- -- 64 19 98 % 06/28/24 0500 97/51 -- -- 63 18 99 % 06/28/24 0405 (!) 89/47 -- -- 73 15 97 % 06/28/24 0400 (!) 93/39 36.5 ?C (97.7 ?F) Temporal 59 13 99 % 06/28/24 0300 (!) 110/42 -- -- 70 15 98 % 06/28/24 0200 90/51 -- -- 60 13 98 % 06/28/24 0100 (!) 98/47 -- -- 59 15 99 % 06/28/24 0002 101/55 -- -- 67 12 99 % 06/28/24 0000 (!) 79/61 36.3 ?C (97.4 ?F) Temporal 61 (!) 10 99 % 06/27/24 2300 103/64 -- -- 63 (!) 10 97 % 06/27/24 2203 (!) 104/43 -- -- 89 18 98 % 06/27/24 2200 (!) 90/45 -- -- 61 19 98 % 06/27/24 2100 91/55 -- -- 61 (!) 9 98 % 06/27/242 93/55 -- -- 60 (!) 9 98 % 06/27/241999 (!) 101/44 36.6 ?C (97.9 ?F) Temporal 64 12 96 % 06/27/24 1903 104/52 -- -- 88 14 98 % 06/27/24 1900 -- -- -- 79 24 99 % 06/27/24 1800 109/61 -- -- 90 (!) 26 95 % 06/27/24 1700 104/63 -- -- 62 (!) 10 100 % 06/27/24 1600 107/70 36.6 ?C (97.8 ?F) Temporal 64 13 100 % 06/27/24 1545 103/59 -- -- 70 (!) 11 100 % 06/27/24 1530 108/53 -- -- 63 (!) 11 99 % 06/27/24 1515 110/54 -- -- 73 15 100 % 06/27/24 1500 118/73 -- -- 63 12 100 % 06/27/24 1445 111/66 -- -- 64 12 99 % 06/27/24 1430 101/60 -- -- 73 13 95 % 06/27/24 1415 102/53 -- -- 64 14 92 % 06/27/24 1400 (!) 97/49 -- -- 71 13 90 % 06/27/24 1345 108/60 -- -- 66 13 91 % 06/27/24 1333 112/70 36.1 ?C (97 ?F) -- 81 19 98 % 06/27/24 1330 112/70 36.2 ?C (97.2 ?F) Temporal 84 17 97 % 06/27/24 0743 119/85 (!) 35.8 ?C (96.5 ?F) -- 72 -- 94 % Physical Exam: Physical Exam Vitals and nursing note reviewed. Constitutional: Appearance: She is ill-appearing. HENT: Head: Comments: Post-op cranial dressing Right Ear: External ear normal. Left Ear: External ear normal. Nose: Nose normal. Mouth/Throat: Mouth: Mucous membranes are moist. Pharynx: Oropharynx is clear. Eyes: General: No scleral icterus. Extraocular Movements: Extraocular movements intact. Cardiovascular: Rate and Rhythm: Normal rate and regular rhythm. Pulmonary: Effort: Pulmonary effort is normal. No respiratory distress. Breath sounds: No wheezing. Abdominal: General: There is no distension. Palpations: Abdomen is soft. Tenderness: There is no abdominal tenderness. Musculoskeletal: Right lower leg: No edema. Left lower leg: No edema. Comments: + arthritic joint changes; no synovitis or crepitance of any limb Skin: General: Skin is warm and dry. Coloration: Skin is not jaundiced. Findings: No rash. Neurological: Mental Status: She is alert and oriented to person, place, and time. Motor: Weakness present. Psychiatric: Mood and Affect: Mood normal. Thought Content: Thought content normal. Labs: Recent Labs 06/28/24 0020 NA 137 K 5.0 CL 106 CO2 25 BUN 9 CREATININE 0.64 GLUCOSE 150* CALCIUM 8.2* Recent Labs 06/28/24 0020 WBC 10.1 HGB 12.1 HCT 37.7 PLT 134* LYMPHOPCT 8.2* MONOPCT 6.9 BASOPCT 0.1 NEUTROABS 8.6* Micro: 06/27- brain biopsy cx- in process (no orgs on stain) 06/27- bone OR cx- in process (no orgs on stain) 06/27- other scalp OR cx- in process (no orgs on stain) 06/27- swab scalp cx- in process (no orgs on stain) 06/27- swab scalp cx- in process (no orgs on stain) Lines: PIV Radiography/Echo/Other: 06/28- CT brain- There are postsurgical changes of left hemicraniectomy. Along the inferior aspect of the craniectomy defect is a extra-axial collection measuring 3.3 x 0.8 x 2.7 cm. There is left frontal pneumocephalus. Ventricles and sulci are normal in size and configuration for age. There is a trace ltnz-ep-[id number] midline shift measuring [address] evidence of an acute large territorial infarction. Imaged paranasal sinuses and mastoid air cells are well aerated. Right-sided craniotomy noted with plate and screws. IMPRESSION: 1. Status post left hemicraniectomy with small extra-axial hematoma within the craniectomy defect measuring up to 3.3 x 0.8 cm. There is trace left to right midline shift measuring 3 mm. 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 Review of ICU notes from 09/2021 showed she tolerated perioperative cefazolin; [facility] records document tolerance of carbapenems in 2023. Will follow up OR cx to delineate a treatment plan. Will need 6 weeks of IV abx and PICC line placement. She will most likely have skin elaine (CoNS, Cutibacterium, etc) as pathogens given the chronicity of exposed hardware. Follow up cx. D/w RN. Will follow. Total critical care time provided was 45 minutes. This time is exclusive of time spent performing procedures. Sayra Honeycutt MD CT HEAD WO IV CONTRAST Observed: 025 4:36 AM Status: F Source: [facility] Patient Name: CARLA SANCHEZ : 1950 Exam Date/Time: 06/28/2024 04:21 Procedure: CT HEAD WO IV CONTRAST Ordering Provider: MEYER JENNIFER Reason For Exam: s/p hemicraniectomy CT HEAD: CLINICAL INDICATION: Status post hemicraniectomy. TECHNIQUE: Transaxial CT sequence performed through the head with 3 mm reconstruction. Sagittal and Coronal reconstruction images included. Dose reduction was employed with automated exposure control. COMPARISON: 11/04/2021 FINDINGS: There are postsurgical changes of left hemicraniectomy. Along the inferior aspect of the craniectomy defect is a extra-axial collection measuring 3.3 x 0.8 x 2.7 cm. There is left frontal pneumocephalus. Ventricles and sulci are normal in size and configuration for age. There is a trace vinc-on-ejpth midline shift measuring [address] evidence of an acute large territorial infarction. Imaged paranasal sinuses and mastoid air cells are well aerated. Right-sided craniotomy noted with plate and screws. IMPRESSION: 1. Status post left hemicraniectomy with small extra-axial hematoma within the craniectomy defect measuring up to 3.3 x 0.8 cm. There is trace left to right midline shift measuring 3 mm. Report Dictated on Electronically Signed By: Pedro Nowak MD Electronically Signed Date/Time: 06/28/2024 4:36 AM EST s/p hemicraniectomy PROTHROMBIN TIME Collected: 06/28/2024 1:08 AM Statu s: F [facility] TYPE CODE TESTS RESULT OUT OF RANGE REFERENCE UNITS LAB [id number] PROTHROMBIN TIME 14.5 High 9.0-12.0 s LAB [id number] INR 1.3 High 0.9-1.1 Result Comment: Recommended Anticoagulant Therapy: SEE BELOW ----- INR of 2.0 - 3.0 : - Prophylaxis of Venous Thrombosis (high-risk surgery) - Treatment of Venous Thrombosis - Treatment of Pulmonary Embolism (Includes tissue heart valves, Acute Myocardial Infarction to prevent systemic embolism, Valvular Heart Disease, and Atrial Fibrillation) ----- INR of 2.5 - 3.5 : - Mechanical Prosthetic Valves (high risk) - If oral anticoagulant therapy is used to prevent Myocardial Infarction Performed By: #### [id number] ## ## Prize Jacker: ARTURO TANNER ([phone]) [address] BASIC METABOLIC PANEL Collected: 2024 12:20 AM Status: F Source: [facility] TYPE CODE TESTS RESULT OUT OF RANGE REFERENCE UNITS LAB [id number] SODIUM 137 136-145 mmol/L LAB [id number] POTASSIUM 5.0 3.5-5.1 mmol/L Result Comment: Plasma potas sium values may be up to 0.5 mmol/L lower than serum values. LAB [id number] CHLORIDE 106 98-107 mmol/L LAB [id number] CARBON DIOXIDE 25 23-31 mmol/L LAB [id number] UREA NITROGEN 9 9-23 mg/dL LAB [id number] CREATININE 0.64 0.57-1.11 mg/dL LAB 3722084 GLUCOSE 150 High 82-115 mg/dL LAB 9724862 CALCIUM 8.2 Low 8.8-10.0 mg/dL LAB [id number] ANION GAP (VALLE, CALCULATED) 6 3-13 mmol/L LAB [id number] GLOMERULAR FILTRATION RATE ML/MIN/1.73 SQ M.PREDICTED >90.0 >60.0 mL/min/1. 73m*2 Result Comment: Calculation based on the Chronic Kidney Disease Epidemiology Collaboration (CKD-EPI) equation refit without adjustment for race Performed By: #### [id number] ### # Prize Jacker: ARTURO TANNER ([id number]) [facility]) [address] [place] [address] CBC WITH AUTO DIFFERENTIAL Collected: 0 06/28/2024 12:20 AM Status: F Source: [facility] TYPE CODE TESTS RESULT OUT OF RANGE REFERENCE UNITS LAB [id number] WBC 10.1 3.6-10.7 10*3/uL LAB [id number] RBC 4.04 3.80-5.20 10*6/uL LAB [id number] HEMOGLOBIN 12.1 11.7-16.0 g/dL LAB 0567056 HEMATOCRIT 37.7 35.0-47.0 % LAB 3219636 MCV 93.3 77.0-99.0 fL LAB 1183877 MCH 30.0 26.0-34.0 pg LAB 2340291 MCHC 32.1 30.5-36.0 % LAB 3199470 RDW 13.9 11.5-15.0 % LAB [id number] PLATELET COUNT 134 Low 140-440 10*3/uL LAB 0111960 MPV 10.4 9.0-12.7 fL LAB 254 NRBC 0.0 0.0-2.0 /100 WBCs LAB [id number] NEUTROPHILS RELATIVE 84.5 High 38.0-82.0 % LAB 0053023 LYMPHOCYTES RELATIVE 8.2 Low 15.0-45.0 % LAB [id number] MONOCYTES RELATIVE 6.9 5.0-13.0 % LAB 5710541 EOSINOPHILS RELATIVE 0.0 0.0-6.0 % LAB 0389944 BASOPHILS RELATIVE 0.1 0.0-2.0 % LAB 9232371 IMMATURE GRANS % 0.3 0.0-2.0 % LAB 2683417 NEUTROPHILS ABSOLUTE 8.6 High 1.8-7.5 10*3/uL LAB [id number] LYMPHOCYTES ABSOLUTE 0.8 Low 1.0-4.3 10*3/uL LAB [id number] MONOCYTES ABSOLUTE 0.7 0.0-0.9 10*3/uL LAB 2951950 EOSINOPHILS ABSOLUTE 0.0 0.0-0.5 10*3/uL LAB 4630665 BASOPHILS ABSOLUTE 0.0 0.0-0.2 10*3/uL LAB 070955 IMMATURE GRANS ABSOLUTE 0.0 <0.1 10*3/uL LAB 4048543 IPF 3 Performed By: #### [id number] # ### Prize Jacker: ARTURO TANNER ([phone]) [facility] ([address] HISTORY AND PHYSICAL NOTE Observed: 06/05 10:20 PM Status: COMPLETED [facility] Attestation signed by Carlin Stinson MD at 06/29/2024 10:32 AM ATTENDING ADDENDUM Active Diagnoses/Problems this Admission: Patient Active Problem List Diagnosis SDH (subdural hematoma) (HCC) Intracranial hemorrhage (HCC) Infected bone flap, initial encounter ([facility]) I personally supervised the resident physician in the evaluation and development of a treatment plan for this patient on the same day of service as above. I personally discussed the review of systems and interviewed the patient along with performing a physical examination. I reviewed the recent events, imaging, labs, vital signs. In addition, I discussed the patient's condition and treatment options with him/her when possible. I have also reviewed and agree with the past medical, family, and social history unless otherwise noted. All of the patient's questions were answered and family updated when appropriate and possible. A complete review of systems was obtained and is negative except as stated in HPI and/or Subjective Section. 74F w/ PMH as below, underwent L craniotomy for removal of infected bone flap and exposed hardware 06/27, admitted to SICU postop PLAN: - q1h neuro checks, HOB@30 - repeat head CT in AM or with changes in neuro exam - goal SBP< 150 mmHg - PRN Labetalol and Hydralazine - pain control - reg diet, bowel reg - ngo, strict I/Os - reconcile home medications - infected bone flap: ID consulted, cont vanc/zosyn, fu OR cultures - hold DVT prophylaxis, SCDs only - PT/OT Dispo: T2 SICU Level of Medical Decision Making: [x]High []Moderate []Low Complexity: Acute or chronic illness posing a threat to life (HIGH) Risk: Parental controlled substances (HIGH) Prescription drug management (MOD) Personally Reviewed/Independently interpreted patient's: [x]Epic notes [x]Radiology studies [x]Labs []EKG [x]Ordering tests []Other Discussed/ With: [x]Patient/Family [x]RN []Consultants [x]Primary []SW/TCC []Other I spent total time of 75 minutes reviewing previous notes, test results, and face to face with Carla Sanchez discussing the diagnosis and importance of compliance with the treatment plan as well as documenting on the day of the visit. Time was spent, Reviewing medical record including recent tests and results Ordering prescription medications/tests and procedures Communicating results to the patient/family/caregiver Counseling/educating the patient/family/caregiver Documenting clinical information the patient's electronic record Coordination of care for the patient Performing a medical appropriate exam and evaluation Carlin Stinson MD, [facility] Trauma, Surgical Critical Care, & General Surgery Division of Trauma Department of Surgery [facility] Department of Surgery Surgical Service - SICU Resident Consult Note 06/27/2024 CHIEF COMPLAINT: No chief complaint on file. Reason for Consult: Critical care needs HISTORY OF PRESENT ILLNESS: Carla Sanchez is a 74 y.o. female with a past medical history of craniotomy in past, diverticulitis, PUD who underwent L craniotomy for removal of infected bone flap and exposed hardware on 06/[address] Barcenas. Post-operatively, she is neurologically intact and without significant complaints. Past Medical History: Diagnosis Date Anemia Arthritis Brain bleed ([facility]) 2013, 2021 Diverticulitis Gastric ulcer Leg fracture, right Right arm fracture Seizures ([facility]) 2013 with first craniotomy- while in hospital- none since Thoracic spine fracture ([facility]) Past Surgical History: Procedure Laterality Date ABDOMINAL SURGERY 07/2021 on stomach CHOLECYSTECTOMY COLONOSCOPY CRANIOTOMY Left 2013 DILATION AND CURETTAGE OF UTERUS HAND SURGERY Right fracture repiair SMALL INTESTINE SURGERY small part removed UPPER GASTROINTESTINAL ENDOSCOPY Medications Prior to Admission: Current Facility-Administered Medications Medication Dose Route Frequency Provider Last Rate Last Admin acetaminophen (Tylenol) tablet 650 mg 650 mg Oral q4h PRN Saira A Orosz, RETURNED GOODS INSPECTOR - [employer] 650 mg at 06/27/24 1428 clindamycin in D5W (Cleocin) IVPB 900 mg 900 mg IntraVENous q8h Saira A Orosz, RETURNED GOODS INSPECTOR - [employer] Stopped at 06/27/24 1913 diphenhydrAMINE (BENADryl) injection 12.5 mg 12.5 mg IntraVENous Once PRN Raine Fuchs, RETURNED GOODS INSPECTOR - STORE RECEIVING SPECIALIST labetalol (Normodyne,Trandate) injection 5 mg 5 mg IntraVENous q10 min PRN Raine Fuchs, RETURNED GOODS INSPECTOR - STORE RECEIVING SPECIALIST Or hydrALAZINE (Apresoline) injection 5 mg 5 mg IntraVENous q15 min PRN Raine Fuchs, RETURNED GOODS INSPECTOR - STORE RECEIVING SPECIALIST HYDROmorphone (Dilaudid) injection 0.25 mg 0.25 mg IntraVENous q5 min PRN Raine Fuchs, RETURNED GOODS INSPECTOR - STORE RECEIVING SPECIALIST HYDROmorphone (Dilaudid) injection 0.5 mg 0.5 mg IntraVENous q5 min PRN Raine Vazquezkins, RETURNED GOODS INSPECTOR - STORE RECEIVING SPECIALIST lactated Ringer's (LR) infusion 50 mL/hr IntraVENous Continuous Saira A Orosz, RETURNED GOODS INSPECTOR - [employer] Stopped at 06/27/24 1314 lactated ringers infusion 125 mL/hr IntraVENous Continuous Raine Fuchs, RETURNED GOODS INSPECTOR - STORE RECEIVING SPECIALIST LORazepam (Ativan) injection 0.5 mg 0.5 mg IntraVENous Once PRN Raine Fuchs, RETURNED GOODS INSPECTOR - STORE RECEIVING SPECIALIST morphine injection 2 mg 2 mg IntraVENous q2h PRN Saira A Orosz, RETURNED GOODS INSPECTOR - MOT[employer] BU[employer] Or morphine injection 4 mg 4 mg IntraVENous q2h PRN Saira A Orosz, RETURNED GOODS INSPECTOR - [employer] BU[employer]DER [employer]ER 4 mg at 06/27/24 1503 naloxone (Narcan) injection 0.4 mg 0.4 mg IntraVENous q5 min PRN Jim Barcenas MD ondansetron (Zofran) injection 4 mg 4 mg IntraVENous Once PRN Raine Fuchs, RETURNED GOODS INSPECTOR - STORE RECEIVING SPECIALIST ondansetron ODT (Zofran-ODT) disintegrating tablet 4 mg 4 mg Oral q8h PRN Saira A Orosz, RETURNED GOODS INSPECTOR - MOT[employer] BU[employer]DER W[employer]ER Or ondansetron (Zofran) injection 4 mg 4 mg IntraVENous q6h PRN Saira A Orosz, RETURNED GOODS INSPECTOR - MOTOR BUILDER W[employer]ER 4 mg at 06/27/24 1615 oxyCODONE (Roxicodone) immediate release tablet 5 mg 5 mg Oral q4h PRN Raine Fuchs, RETURNED GOODS INSPECTOR - STORE RECEIVING SPECIALIST Or oxyCODONE (Roxicodone) immediate release tablet 10 mg 10 mg Oral q4h PRN Raine Fuchs, RETURNED GOODS INSPECTOR - STORE RECEIVING SPECIALIST oxyCODONE (Roxicodone) immediate release tablet 5 mg 5 mg Oral q4h PRN Saira A Orosz, RETURNED GOODS INSPECTOR - MOT[employer] BUILDER [employer]ER Or oxyCODONE (Roxicodone) immediate release tablet 10 mg 10 mg Oral q4h PRN Saira A Orosz, RETURNED GOODS INSPECTOR - MOT[employer] BUILDER W[employer]ER 10 mg at 06/27/24 1813 pantoprazole (ProtoNix) EC tablet 40 mg 40 mg Oral Daily Saira A Orosz, RETURNED GOODS INSPECTOR - [employer] BU[employer]DER [employer]ER 40 mg at 06/27/24 1349 polyethylene glycol (PEG) 3350 (Miralax) packet 17 g 17 g Oral Daily PRN Saira A Orosz, RETURNED GOODS INSPECTOR - MOT[employer] BUILDER W[employer]ER polyethylene glycol (PEG) 3350 (Miralax) packet 17 g 17 g Oral Daily PRN Saira A Orosz, RETURNED GOODS INSPECTOR - MOT[employer] BU[employer]DER [employer]ER sodium chloride 0.9 % bolus 500 mL 500 mL IntraVENous PRN Raine Fuchs, RETURNED GOODS INSPECTOR - STORE RECEIVING SPECIALIST sodium chloride 0.9 % infusion 5-250 mL/hr IntraVENous PRN Raine Fuhcs, RETURNED GOODS INSPECTOR - STORE RECEIVING SPECIALIST sodium chloride 0.9 % infusion 75 mL/hr IntraVENous Continuous Saira A Orosz, RETURNED GOODS INSPECTOR - [employer] BU[employer] 75 mL/hr at 06/27/24 1343 75 mL/hr at 06/27/24 1343 sodium chloride 0.9 % infusion 5-250 mL/hr IntraVENous PRN Saira A Orosz, RETURNED GOODS INSPECTOR - [employer] sodium chloride 0.9% (NS) flush 10 mL 10 mL IntraVENous 2 times per day Raine Fuchs, RETURNED GOODS INSPECTOR - STORE RECEIVING SPECIALIST 10 mL at 06/27/242037 sodium chloride 0.9% (NS) flush 10 mL 10 mL IntraVENous PRN Raine Fuchs, RETURNED GOODS INSPECTOR - STORE RECEIVING SPECIALIST sodium chloride 0.9% (NS) flush 5-40 mL 5-40 mL IntraVENous 2 times per day Saira A Orosz, RETURNED GOODS INSPECTOR - [employer] BU[employer]DER [employer] sodium chloride 0.9% (NS) flush 5-40 mL 5-40 mL IntraVENous PRN Saira Meyer APRN - [employer] BU[employer] Allergies: Ibuprofen, Penicillins, and Prednisone Social History Socioeconomic History Marital status: Tobacco Use Smoking status: Former Current packs/day: 0.00 Types: Cigarettes Quit date: 10/27/2019 Years since quittin.6 Smokeless tobacco: Never Vaping Use Vaping status: Never Used Substance and Sexual Activity Alcohol use: Yes Alcohol/week: 1.0 standard drink of alcohol Types: 1 Standard drinks or equivalent per week Comment: rare-holidays or special occ Drug use: Not Currently Social Drivers of Health Financial Resource Strain: Low Risk (08/12/2023) Received from [facility] Overall Financial Resource Strain (CARDIA) Difficulty of Paying Living Expenses: Not hard at all Food Insecurity: No Food Insecurity (10/24/2023) Received from [facility] Hunger Vital Sign Worried About Running Out of Food in the Last Year: Never true Ran Out of Food in the Last Year: Never true Transportation Needs: No Transportation Needs (10/24/2023) Received from [facility] PRAPARE - Transportation Lack of Transportation (Medical): No Lack of Transportation (Non-Medical): No Intimate Partner Violence: Not At Risk (06/27/2024) Humiliation, Afraid, Rape, and Kick questionnaire Fear of Current or Ex-Partner: No Emotionally Abused: No Physically Abused: No Sexually Abused: No Housing Stability: Low Risk (10/24/2023) Received from [facility] Housing Stability Vital Sign Unable to Pay for Housing in the Last Year: No Number of Places Lived in the Last Year: 1 Unstable Housing in the Last Year: No Family History Problem Relation Name Age of Onset Breast cancer Mother Heart disease Father REVIEW OF SYSTEMS: Review of Systems Constitutional: Negative for fatigue. Respiratory: Negative for chest tightness and shortness of breath. Gastrointestinal: Negative for abdominal pain. Neurological: Negative for headaches. Psychiatric/Behavioral: Negative for agitation. PHYSICAL EXAM: Vitals: 06/27/24 2203 BP: (!) 104/43 Pulse: 89 Resp: 18 Temp: SpO2: 98% I/O last 3 completed shifts: In: 2249 [P.O.:360; I.V.:1837; IV Piggyback:52] Out: 575 [Urine:275; Blood:300] CONSTITUTIONAL: awake, alert, no apparent distress, head wrapped with extensive bandage NECK: Supple, symmetrical, trachea midline, no adenopathy LUNGS: No increased work of breathing, good air exchange CARDIOVASCULAR: Regular rate and rhythm ABDOMEN: Soft, non-distended, non-tender, no rebound, no guarding, no masses palpated, CHEST: no masses palpated, no axillary or supraclavicular adenopathy GENITAL/URINARY: Not examined MUSCULOSKELETAL: There is no redness, warmth, or swelling of the joints. Full range of motion noted. NEUROLOGIC: Awake, alert, oriented to name, place and time. Moving all extremities SKIN: normal skin color, texture, no redness, warmth, or swelling DATA: CBC: No results found for: WBC, RBC, HGB, HCT, MCV, MCH, MCHC, RDW, PLT, MPV BMP: No results found for: NA, K, CL, CO2, BUN, CREATININE, CALCIUM, LABGLOM, GLUCOSE, GLU Hepatic Function Panel: No results found for: ALKPHOS, ALT, AST, PROT, BILITOT, BILIDIR PT/INR: No results found for: PROTIME, INR Troponin: No results found for: TROPONINI LIPASE: No results found for: LIPASE IMAGING: No results found. ASSESSMENT AND PLAN: This is a 74 y.o. female s/p L craniotomy. PLAN: Neuro / Spine - Pain control: MMPC - Elevate HOB 30 degrees Cardiovascular - Hemodynamically stable - Labetalol/hydralazine prn - Telemetry Pulmonary - Standard O2 protocol - IS - Duonebs PRN FEN/GI - Regular diet - Zofran PRN - Daily BMP, CBC, Mg, Phos - Ngo catheter, consider removal in the AM Endocrine - No acute issues Heme - Hgb stable - No transfusions indicated ID - Cecy Clinda per NSG - ID consult placed by NSG Lines/Devices: - PIV - Ngo Prophylaxis: DVT: SCDs Has DVT PPX been started? Yes If no, why? GI: none Pressure Ulcer: Continue to monitor, q2 turns Musculoskeletal: - PT/OT - All extremities AT Patient discussed with attending, Dr. Stinson. Erik Plaza III, MD General Surgery PGY-4 06/27/24 10:21 PM [id number] Observed: 06/27/2024 2:51 PM Status: COMPLETED [facility] Care Management Progress Not e Consults to IP CONSULT TO INFECTIOUS DISEASES Initial Assessment: Chart reviewed. CM spoke with patient and family at bedside. Patient has insurance, prescription coverage, and PCP listed on EHR. Patient from home alone. Patient and sister Erica are agreeable to [facility] for potential LT IVABX - ID plan pending. Erica agreeable to being teachable caregiver. CM tasked ADARSH via care[employer]yuki. CM will follow for discharge planning. Discharge Planning/Barrier: 06/27/24 1448 Rapid Rounds Attendance Compliance Attorney Planned Discharge Disposition Services If assistance needed, confirmed caregiver ready, willing and able to care for patient at discharge Yes Confirmed with Erica (sis) [phone] Today we still await Administering IV medications;Clinical stability;Project Development Manager recommendations (comment) Additional Comments: IVABX Discharge Plan: Home with [facility]. Will continue to follow with ADARSH. Length of Stay (Days): 0 GMLOS: No GMLOS Documented Care Managment Initial Assessment Date: 06/27/2024 Patient Name: Carla Sanchez : 1950 Patient Information Source of Information: Patient, Patient Advertising Associate Name/Contact Information: Erica (Sis) [phone] Cognition/Language: WFL - Within Functional Limits Permission given to speak with patient signs sales representative/caregiver as indicated: Yes Confirmation of Payer with patient/family: Yes Payer Name: [facility]/[employer] : Confirmation of Primary Care Physician: Confirmed PCP Name: Mary Smith Primary Caregiver: Self If assistance needed, confirmed caregiver ready, willing and able to care for patient at discharge: (P) Yes Confirmed with: (P) Erica (sis) [phone] Living Arrangements Current Residence: House Number of Floors 3 Number of Entry Steps: Bed/Bath Levels: Separate floors Facility: Facility Name: Plan to Return: Lives with: Alone Support Systems: Family members, Friends/neighbors Activities of Daily Living Ambulation: Independent Bathing/Dressing: Independent Elimination/Continence/Toileting: Independent Feeding: Independent Who Assists with Activities of Daily Living: Instrumental Activities of Daily Living Prescription Coverage: Yes Pharmacy Used: Medication Management: Independent Transportation/Shopping: Independent Transportation Mode: Needs Assistance with Transportation at Discharge: Meal Preparation: Independent Laundry/Cleaning: Independent Finances/Bill Paying: Independent Communication: Independent Types of Care Services/Equipment Utilized Care Services: Dialysis Type: Durable Medical Equipment: Bedside Commode Patient's Goal/Discharge Plan Patient expects to be discharged to: Home with [facility] Discharge Planning Actions: Continue to follow Patient's Choice Rights and [employer] and Collaborative Relationships Disclosed as Indicated for Post-Acute Care: Interdisciplinary Team Engagement: Home Health Care Social Work Referral for: Additional Information: See above. Brunilda Wall RN [id number] Observed: 06/27/2024 1:34 PM Status: COMPLETED Source: [employer] [facility] Patient: Carla Sanchez Procedure Summary Date: 06/27/24 Room / Location: [address] Operating Room Anesthesia Start: 1101 Anesthesia Stop: 1318 Procedure: LEFT CRANIOTOMY FOR REMOVAL OF INFECTED BONE FLAP (Head) Diagnosis: Other mechanical complication of other internal orthopedic devices, implants and grafts, initial encounter ([facility]) Surgeons: Jim Barcenas MD Responsible Provider: Johnathon Mendoza MD Anesthesia Type: general ASA Status: 2 Anesthesia Type: general Vitals Value Taken Time BP 112/70 06/27/24 1333 Temp 36.1 ?C (97 ?F) 06/27/24 1333 Pulse 85 06/27/24 1334 Resp 20 06/27/24 1334 SpO2 93 % 06/27/24 1334 Vitals shown include unfiled device data. Anesthesia Post Evaluation Patient location during evaluation: ICU Patient participation: complete - patient participated Level of consciousness: awake Pain management: adequate Airway patency: patent Dental Injury: no Cardiovascular status: acceptable and hemodynamically stable Respiratory status: acceptable and face mask Hydration status: acceptable Nausea/Vomiting: controlled No notable events documented. Patient can be discharged once all PACU criteria has been met. ANESTHESIA NOTE Observed: 06/27/2024 1:33 PM Status: COMPLETED Source: [facility] Patient: Carla Sanchez Procedure Summary Date: 06/27/24 Room / Location: [address] Operating Room Anesthesia Start: 1101 Anesthesia Stop: 1318 Procedure: LEFT CRANIOTOMY FOR REMOVAL OF INFECTED BONE FLAP (Head) Diagnosis: Other mechanical complication of other internal orthopedic devices, implants and grafts, initial encounter ([facility]) Surgeons: Jim Barcenas MD Responsible Provider: Johnathon Mendoza MD Anesthesia Type: general ASA Status: 2 Anesthesia Type: general Vitals Value Taken Time BP 112/70 06/27/24 1333 Temp 36.1 ?C (97 ?F) 06/27/24 1333 Pulse 78 06/27/24 1333 Resp 15 06/27/24 1333 SpO2 95 % 06/27/24 1333 Vitals shown include unfiled device data. Anesthesia Post Evaluation Patient location during evaluation: ICU Patient participation: complete - patient participated Post-procedure mental status: sedated/intubated. Pain score: 0 Pain management: adequate Multimodal analgesia pain management approach Airway patency: patent Two or more strategies used to mitigate risk of obstructive sleep apnea Cardiovascular status: hemodynamically stable Respiratory status: acceptable and face mask Hydration status: acceptable No notable events documented. MIPS #430 PONV Patient received an inhalational anesthetic (4554F) Patient does not exhibit three or more risk factors for PONV (X0430)) MIPS # 424 Perioperative Temperature Management Anesthesia time was 60 minutes or longer (4255F) Anesthesai administered was General (inhalational or TIVA) or Neuraxial block (X0424) At least one body temperature greater than 95.8F/35.5C achieved within the 30 mins immediately prior to or the 15 minutes immediately following anesthesia end time (G9771) MIPS #477 Multimodal Pain Management Not emergent case Patient was administered multimodal pain management (two or more drugs and/or interventions excluding systemic opioids) in the periopeartive period occurring at some time between 6 hours prior to anesthesia start time until discharged from PACU (G2148) MIPS #404 Anesthesiology Smoking Abstinence The patient is not a current smoker (e.g. cigarette, cigar, pipe, e-cigarette/vaping/marijuana) If no stop here (XX404) I completed my handoff to the receiving clinician during which we: 1. Identified the patient 2. Identified the responsible provider 3. Reviewed the pertinent medical history 4. Discussed the surgical course 5. Reviewed intra-op anesthesia management and issues during anesthesia 6. Set expectations for post-procedure period 7. Allowed opportunity for questions and acknowledgement of understanding. CULTURE ANAEROBIC Observed: 06/27/2024 12:30 PM Status: F Source: [facility] ANAEROBIC CULTURE Reference No growth at 5 days [ S = SUSCEPTIBLE R = RESISTANT I = INTERMEDIATE S-DD = Susceptible-dose dependent NS = Non-susceptible NO = No Interpretation ] Performed By: #### [id number] ## ## Prize Jacker: ARTURO TANNER ([id number]) [facility]) [address] [place] [address] [place] FUNGAL STAIN Observed: 06/27/2024 12:30 PM Status: F Source: [facility] FUNGAL STAIN Reference No fungal elements seen ORDER COMMENTS: Reference Range: No fungal elements seen [ S = SUSCEPTIBLE R = RESISTANT I = INTERMEDIATE S-DD = Susceptible-dose dependent NS = Non-susceptible NO = No Interpretation ] Performed By: #### [id number] ## ## Prize Jacker: ARTURO TANNER ([id number]) [facility] ([facility]) [address] [place] [address] [place] AFB CULTURE Observed: 06/27/2024 12:30 PM Status: F Source: [facility] AFB CULTURE Reference No growth at 6 weeks AFB STAIN Reference No acid fast bacilli seen by fluorescent microscopy ORDER COMMENTS: Stain Reference Range: No acid fast bacilli seen by fluorescent microscopy. [ S = SUSCEPTIBLE R = RESISTANT I = INTERMEDIATE S-DD = Susceptible-dose dependent NS = Non-susceptible NO = No Interpretation ] Performed By: #### [id number] ## ## Prize Jacker: ARTURO TANNER ([id number]) [facility] ([facility]) [address] [place] [address] [place] CULTURE, AEROBIC BACTERIA WI TH GRAM STAIN Observed: 06/27/2024 12:30 PM Status: F Source: [facility] CULTURE (A) Reference STAPHYLOCOCCUS AUREUS Rare Staphylococcus aureus (A) For identification and/or sensitivity, refer to culture collected on: 06/27/2024 at 1228 [25[id number]]. GRAM STAIN RESULT Reference Moderate Polymorphonuclear leukocytes per low power field No organisms seen [ S = SUSCEPTIBLE R = RESISTANT I = INTERMEDIATE S-DD = Susceptible-dose dependent NS = Non-susceptible NO = No Interpretation ] Performed By: #### [id number] ## ## Prize Jacker: ARTURO TANNER ([id number]) [facility] ([facility]) [address] [place] [address] [place] CULTURE, AEROBIC BACTERIA WI TH GRAM STAIN Observed: 06/27/2024 12:28 PM Status: F Source: [facility] CULTURE (A) Reference STAPHYLOCOCCUS AUREUS Rare Staphylococcus aureus (A) Methicillin-resistant Staphylococcus aureus (MRSA) PBP2A Reference Positive GRAM STAIN RESULT Reference Moderate Polymorphonuclear leukocytes per low power field No organisms seen Organism: STAPHYLOCOCCUS AUREUS Antibiotic CHRIS Interpretation Status Clindamycin R F Daptomycin 0.25 ug/ml S F Doxycycline <=0.5 ug/ml S F Gentamicin <=0.5 ug/ml S F Linezolid 2 ug/ml S F Oxacillin >=4 ug/ml R F Trimethoprim / Sulfamethoxazole <=10 ug/ml S F Vancomycin 1 ug/ml S F [ S = SUSCEPTIBLE R = RESISTANT I = INTERMEDIATE S-DD = Susceptible-dose dependent NS = Non-susceptible NO = No Interpretation ] Performed By: #### [id number] ## ## Prize Jacker: ARTURO TANNER ([id number]) [address] [employer] CULTURE Observed: 06/27/2024 12:28 PM Status: F Source: [facility] [employer] CULTURE Reference No growth at 6 weeks AFB STAIN Reference No acid fast bacilli seen by fluorescent microscopy ORDER COMMENTS: Stain Reference Range: No acid fast bacilli seen by fluorescent microscopy. [ S = SUSCEPTIBLE R = RESISTANT I = INTERMEDIATE S-DD = Susceptible-dose dependent NS = Non-susceptible NO = No Interpretation ] Performed By: #### [id number] ## ## Prize Jacker: ARTURO TANNER ([id number]) [address] [place] CULTURE Observed: 06/27/2024 12:28 PM Status: F Source: [facility] [employer]GAL CULTURE Reference No fungus isolated after 21 days [ S = SUSCEPTIBLE R = RESISTANT I = INTERMEDIATE S-DD = Susceptible-dose dependent NS = Non-susceptible NO = No Interpretation ] Performed By: #### [id number] # ### Prize Jacker: ARTURO TANNER ([id number]) [facility] ([address] CULTURE ANAEROBIC Observed: 06/27/2024 12:28 PM Status: F Source: [facility] ANAEROBIC CULTURE Reference No growth at 5 days [ S = SUSCEPTIBLE R = RESISTANT I = INTERMEDIATE S-DD = Susceptible-dose dependent NS = Non-susceptible NO = No Interpretation ] Performed By: #### [id number] ## ## Prize Jacker: ARTURO TANNER ([id number]) [facility] ([facility]) [address] [place] [address] [employer] CULTURE Observed: 06/27/2024 12:16 PM Status: F Source: [facility] AF[employer] CULTURE Reference No growth at 6 weeks AFB STAIN Reference No acid fast bacilli seen by fluorescent microscopy ORDER COMMENTS: Stain Reference Range: No acid fast bacilli seen by fluorescent microscopy. [ S = SUSCEPTIBLE R = RESISTANT I = INTERMEDIATE S-DD = Susceptible-dose dependent NS = Non-susceptible NO = No Interpretation ] Performed By: #### [id number] ## ## Prize Jacker: ARTURO TANNER ([id number]) [facility] ([facility]) [address] [place] [address] CULTURE ANAEROBIC Observed: 06/27/2024 12:16 PM Status: F Source: [facility] ANAEROBIC CULTURE Reference No growth at 5 days [ S = SUSCEPTIBLE R = RESISTANT I = INTERMEDIATE S-DD = Susceptible-dose dependent NS = Non-susceptible NO = No Interpretation ] Performed By: #### [id number] ## ## Prize Jacker: ARTURO TANNER ([id number]) [facility] ([facility]) [address] [place] [address] FUNGAL CULTURE Observed: 06/27/2024 12:16 PM Status: F Source: [facility] FUNGAL CULTURE Reference No fungus isolated after 21 days [ S = SUSCEPTIBLE R = RESISTANT I = INTERMEDIATE S-DD = Susceptible-dose dependent NS = Non-susceptible NO = No Interpretation ] Performed By: #### [id number] # ### Prize Jacker: ARTURO TANNER ([id number]) [address] CULTURE, AEROBIC BACTERIA WI TH GRAM STAIN Observed: 06/27/2024 12:16 PM Status: F Source: [facility] CULTURE (A) Reference STAPHYLOCOCCUS AUREUS Rare Staphylococcus aureus (A) For identification and/or sensitivity, refer to culture collected on: 06/27/2024 at 1228 [[id number]]. GRAM STAIN RESULT Reference Few Polymorphonuclear leukocytes per low power field No organisms seen [ S = SUSCEPTIBLE R = RESISTANT I = INTERMEDIATE S-DD = Susceptible-dose dependent NS = Non-susceptible NO = No Interpretation ] Performed By: #### [id number] ## ## Prize Jacker: ARTURO TANNER ([id number]) [address] [employer] CULTURE Observed: 06/27/2024 12:09 PM Status: F Source: [facility] AF[employer] CULTURE Reference No growth at 6 weeks AFB STAIN Reference No acid fast bacilli seen by fluorescent microscopy ORDER COMMENTS: Stain Reference Range: No acid fast bacilli seen by fluorescent microscopy. [ S = SUSCEPTIBLE R = RESISTANT I = INTERMEDIATE S-DD = Susceptible-dose dependent NS = Non-susceptible NO = No Interpretation ] Performed By: #### [id number] ## ## Prize Jacker: ARTURO TANNER ([id number]) [address] [employer] CULTURE Observed: 06/27/2024 12:09 PM Status: F Source: [facility] FUNGAL CULTURE Reference No fungus isolated after 21 days [ S = SUSCEPTIBLE R = RESISTANT I = INTERMEDIATE S-DD = Susceptible-dose dependent NS = Non-susceptible NO = No Interpretation ] Performed By: #### [id number] # ### Prize Jacker: ARTURO TANNER ([id number]) [address] CULTURE, AEROBIC BACTERIA WI TH GRAM STAIN Observed: 06/27/2024 12:09 PM Status: F Source: [facility] CULTURE (A) Reference STAPHYLOCOCCUS AUREUS Rare Staphylococcus aureus (A) For identification and/or sensitivity, refer to culture collected on: 06/27/2024 at 1228 [[id number]]. GRAM STAIN RESULT Reference Few Polymorphonuclear leukocytes per low power field No organisms seen [ S = SUSCEPTIBLE R = RESISTANT I = INTERMEDIATE S-DD = Susceptible-dose dependent NS = Non-susceptible NO = No Interpretation ] Performed By: #### [id number] ## ## Prize Jacker: ARTURO [id number]) [facility] ([facility]) [address] [place] [address] CULTURE ANAEROBIC Observed: 06/27/2024 12:09 PM Status: F Source: [facility] ANAEROBIC CULTURE Reference No growth at 5 days [ S = SUSCEPTIBLE R = RESISTANT I = INTERMEDIATE S-DD = Susceptible-dose dependent NS = Non-susceptible NO = No Interpretation ] Performed By: #### [id number] ## ## Prize Jacker: ARTURO TANNER ([id number]) [facility]) [address] [place] [address] CULTURE ANAEROBIC Observed: 06/27/2024 12:08 PM Status: F Source: [facility] ANAEROBIC CULTURE Reference No growth at 5 days [ S = SUSCEPTIBLE R = RESISTANT I = INTERMEDIATE S-DD = Susceptible-dose dependent NS = Non-susceptible NO = No Interpretation ] Performed By: #### [id number] ## ## Prize Jacker: ARTURO TANNER ([id number]) [facility]) [address] [place] [address] CULTURE, AEROBIC BACTERIA WI TH GRAM STAIN Observed: 06/27/2024 12:08 PM Status: F Source: [facility] CULTURE (A) Reference STAPHYLOCOCCUS AUREUS Rare Staphylococcus aureus (A) For identification and/or sensitivity, refer to culture collected on: 06/27/2024 at 1228 [25[id number]]. GRAM STAIN RESULT Reference Few Polymorphonuclear leukocytes per low power field No organisms seen [ S = SUSCEPTIBLE R = RESISTANT I = INTERMEDIATE S-DD = Susceptible-dose dependent NS = Non-susceptible NO = No Interpretation ] Performed By: #### [id number] ## ## Prize Jacker: ARTURO TANNER ([id number]) [facility] ([facility]) [address] [place] [address] [place] [employer] CULTURE Observed: 06/27/2024 12:08 PM Status: F Source: [facility] AFB CULTURE Reference No growth at 6 weeks AFB STAIN Reference No acid fast bacilli seen by fluorescent microscopy ORDER COMMENTS: Stain Reference Range: No acid fast bacilli seen by fluorescent microscopy. [ S = SUSCEPTIBLE R = RESISTANT I = INTERMEDIATE S-DD = Susceptible-dose dependent NS = Non-susceptible NO = No Interpretation ] Performed By: #### [id number] ## ## Prize Jacker: ARTURO TANNER ([id number]) [facility] ([facility]) [address] [place] [address] FUNGAL CULTURE Observed: 06/27/2024 12:08 PM Status: F Source: [facility] [employer] [facility] FUNGAL CULTURE Reference No fungus isolated after 21 days [ S = SUSCEPTIBLE R = RESISTANT I = INTERMEDIATE S-DD = Susceptible-dose dependent NS = Non-susceptible NO = No Interpretation ] Performed By: #### [id number] # ### Prize Jacker: ARTURO TANNER ([id number]) [facility] ([facility]) [address] [place] [address] PROCEDURE NOTE Observed: 06/27/2024 11:34 AM Status: COMPLETED Source: [facility] Airway Date/Time: 06/27/2024 11:14 AM Urgency: scheduled Airway not difficult General Information and Staff Patient location during procedure: Procedural Resident/STORE RECEIVING SPECIALIST: Ajit Ward CRNA Performed: STORE RECEIVING SPECIALIST Indications and Patient Condition Indications for airway management: anesthesia and airway protection Sedation level: Asleep Preoxygenated: yes Patient position: sniffing MILS maintained throughout Mask difficulty assessment: 1 - vent by mask Final Airway Details Final airway type: endotracheal airway Successful airway: ETT Cuffed: yes Successful intubation technique: direct laryngoscopy Facilitating devices/methods: intubating stylet Endotracheal tube insertion site: oral Blade: Marycarmen Blade size: #3 ETT size (mm): 7.0 Cormack-Lehane Classification: grade IIa - partial view of glottis Placement verified by: chest auscultation and capnometry Measured from: lips ETT to lips (cm): 19 Number of attempts at approach: 1 OP NOTE Observed: 06/27/2024 11:02 AM Status: COMPLETED Source: [facility] OPERATIVE NOTE Patient Name: Carla Sanchez : 1950 DATE OF PROCEDURE: 06/27/2024 SURGEON: Jim Barcenas MD MATERIAL FLOW ANALYST: Saira Meyer CNP PREOPERATIVE DIAGNOSES: Exposed cranial hardware POSTOPERATIVE DIAGNOSES: Same PROCEDURE: Left craniotomy for removal of infected bone flap and exposed hardware ANESTHESIA: General ESTIMATED BLOOD LOSS: 20 INDICATION FOR PROCEDURE: Mrs. Sanchez is a 74-year-old female with a history of a right sided and left-sided craniotomy in the past. Her left sided craniotomy was years ago. She presented to the office with a breakdown in her scalp that showed exposed hardware. Because it was exposed we considered the hardware and the bone flap infected. Risks and benefits of left craniotomy for removal of the hardware and bone flap were discussed with her, family wish to proceed. DESCRIPTION OF PROCEDURE: Patient was brought to the operating room general endotracheal anesthesia was induced. She is lying supine on operative table her head rested on a horseshoe. Her whole head was shaved at her request. The left-sided incision was marked and she was prepped and draped in the normal sterile fashion. After appropriate timeout identifying the patient and the site of surgery type surgery skin incision was made the entire skin flap opened and raised as 1 with the temporalis. The hardware was identified and the frontal bur hole cover had worked itself free and had eroded through the skin all the hardware was removed some of the bone flap was grown back to the skull and the router footplate used to open that area up to allow the entire bone flap to be removed. The underside of the scalp one-sided then opened had some purulent appearing material that was swabbed and sent for culture. The exposed bur hole cover was sent for culture as well. Once the bone flap was removed that was also sent for culture. The epidural space was cultured and sent as well for culture. Then the entire area was thoroughly irrigated out some Dura-Guard was laid down is a additional barrier between the old dura and the scalp. Then the temporalis was closed with interrupted 2-0 Vicryl sutures. The galea was closed with interrupted 2-0 Vicryl sutures. The defect in the scalp where the hardware had eroded through was closed with a 3-0 nylon stitch in vertical mattress after the defective skin had been resected. Sterile head wrap was placed. She was extubated taken to the ICU in stable fashion. There is no neurosurgical resident available to assist the case, the nurse practitioner assisted to provide suction retraction assistance with opening and closing allow the case to be performed safely. ORY AND PHYSICAL NOTE Observed: 06/25/2024 8:08 AM Status: COMPLETED Source: [facility] History Of Present Illness Carla Sanchez is a 74 y.o. female presenting with a history of L craniotomy years ago. She recently presented to the office with an exposed cranial plate from the her previous L craniotomy. Past Medical History She has a past medical history of Anemia, Arthritis, Brain bleed (HCC), Diverticulitis, Gastric ulcer, Leg fracture, right, Right arm fracture, Seizures (HCC), and Thoracic spine fracture (HCC). Surgical History She has a past surgical history that includes Abdominal surgery (07/2021); Dilation and curettage of uterus; Hand surgery (Right); Craniotomy (Left, 2014); Cholecystectomy; Small intestine surgery; Colonoscopy; and Upper gastrointestinal endoscopy. Social History She reports that she quit smoking about 4 years ago. Her smoking use included cigarettes. She has never used smokeless tobacco. She reports current alcohol use of about 1.0 standard drink of alcohol per week. She reports that she does not currently use drugs. Allergies Ibuprofen, Penicillins, and Prednisone Medications No medications prior to admission. Review of Systems Physical Exam OE spon + FC O x 3 5/5 B UE and LE Last Recorded Vitals There were no vitals taken for this visit. Relevant Results CT scan of the head shows previous postop changes right and left side of her head. There are craniotomy flaps on the right and left. The hardware for the front of her left craniotomy flap appears very close to the level of the skin. Assessment/Plan Active Problems: There are no active Hospital Problems. Exposed L cranial hardware, because it is exposed it is considered infected. Plan for removal of L bone flap. Risks/Benefits of the surgery have been discussed with the patient including but not limited to stroke, seizures, infection, hemorrhage, speech difficulty, permanent weakness and . Pt and family understand and agree to the procedure ECG 12-LEAD Observed: 06/24/2024 7:33 AM Status: F Source: [employer] [facility] IMPRESSION: Sinus rhythm Multiple ventricular premature complexes Probable left atrial enlargement Right bundle branch block Electronically Signed On 06-24-2024 07:33:38 EST by Carmen Peters CBC (HEMOGRAM) Collected: 06/23/2024 2:24 PM Status: F Source: [employer] [facility] TYPE CODE TESTS RESULT OUT OF RANGE REFERENCE UNITS LAB [id number] WBC 7.3 3.6-10.7 10*3/uL LAB [id number] RBC 4.75 3.80-5.20 10*6/uL LAB 1397588 HEMOGLOBIN 14.3 11.7-16.0 g/dL LAB [id number] HEMATOCRIT 42.8 35.0-47.0 % LAB 2554037 MCV 90.1 77.0-99.0 fL LAB [id number] MCH 30.1 26.0-34.0 pg LAB [id number] MCHC 33.4 30.5-36.0 % LAB 3044063 RDW 14.0 11.5-15.0 % LAB [id number] PLATELET COUNT 180 140-440 10*3/uL LAB [id number] MPV 10.4 9.0-12.7 fL Performed By: #### [id number] ## ## Prize Jacker: DEJA BLANCO ([phone]) [facility] ([facility]) [address] [place] [address] BLOOD TYPE AND SCREEN GEL Collected: 06/23/2024 2:24 PM Status: F Source: [facility] TYPE CODE TESTS RESULT OUT OF RANGE REFERENCE UNITS LAB [id number] ABO GROUPING O LAB 8297068 RH TYPE IN BLOOD POS LAB [id number] ANTIBODY SCREEN NEG Performed By: #### [id number] ## ## Prize Jacker: DEJA BLANCO ([id number]) [facility] ([facility]) [address] [place] [address] COMPREHENSIVE METABOLIC PANEL Collected: 06/23/2024 2 :24 PM Status: F Source: [facility] TYPE CODE TESTS RESULT OUT OF RANGE REFERENCE UNITS LAB [id number] SODIUM 139 136-145 mmol/L LAB [id number] POTASSIUM 4.1 3.5-5.1 mmol/L Result Comment: Plasma potas sium values may be up to 0.5 mmol/L lower than serum values. LAB 1536681 CHLORIDE 105 98-107 mmol/L LAB 8394616 CARBON DIOXIDE 25 23-31 mmol/L LAB [id number] ANION GAP (VALLE, CALCULATED) 9 3-13 mmol/L LAB 8154717 UREA NITROGEN 11 9-23 mg/dL LAB [id number] CREATININE 0.74 0.57-1.11 mg/dL LAB 5455095 GLUCOSE 97 82-115 mg/dL LAB 7713565 CALCIUM 9.3 8.8-10.0 mg/dL LAB 8133847 AST (SGOT) 65 High <34 U/L LAB [id number] ALT 57 High <30 U/L LAB [id number] ALKALINE PHOSPHATASE 77 40-150 U/L LAB 8267336 ALBUMIN 3.9 3.4-4.8 g/dL LAB 7605822 BILIRUBIN, TOTAL 1.2 High <1.2 mg/dL LAB 5992080 TOTAL PROTEIN 7.1 6.4-8.3 g/dL LAB [id number] GLOMERULAR FILTRATION RATE ML/MIN/1.73 SQ M.PREDICTED 85.6 >60.0 mL/min/1. 73m*2 Result Comment: Calculation based on the Chronic Kidney Disease Epidemiology Collaboration (CKD-EPI) equation refit without adjustment for race Performed By: #### [id number] ### # Prize Jacker: DEJA BLANCO ([id number]) [facility] ([facility]) [address] [place] [address] COMPLETE URINALYSIS Collected: 06/23/2024 2:[address] atus: F Source: [facility] TYPE CODE TESTS RESULT OUT OF RANGE REFERENCE UNITS LAB [id number] COLOR OF URINE Yellow Lt. Yellow LAB 9920967 CLARITY OF URINE Clear Clear LAB 0298916 PH OF URINE 7.5 5.0-8.0 pH LAB 8554262 LEUKOCYTE ESTERASE PRESENCE IN URINE BY TEST STRIP Negative Negative Delaney/uL LAB 9594053 NITRITE PRESENCE IN URINE Negative Negative LAB [id number] PROTEIN (MG/DL) IN URINE BY TEST STRIP Negative Negative mg/dL LAB 8986447 GLUCOSE (MG/DL) IN URINE Normal Normal (<70) mg/dL LAB 2115527 BILIRUBIN, TOTAL PRESENCE IN URINE Negative Negative mg/dL LAB 548 KETONES (MG/DL) IN URINE Negative Negative mg/dL LAB 19 UROBILINOGEN (MG/DL) IN URINE Normal Normal (0-1) mg/dL LAB 549 HEMOGLOBIN PRESENCE IN URINE Negative Negative mg/dL LAB 1199 SPECIFIC GRAVITY OF URINE (NUMERIC) 1.011 1.005-1.030 Performed By: #### [id number] ## ## Prize Jacker: DEJA BLANCO ([id number]) [facility] [address] [place] [address] ANESTHESIA NOTE Observed: 06/23/2024 2:18 PM Status: COMPLETED Source: [employer] [facility] Patient: Carla Sanchez Procedure Information Date/Time: 06/27/24 1030 Procedure: LEFT CRANIOTOMY FOR REMOVAL OF INFECTED BONE FLAP (Head) - 2 HOUR CASE Location: [facility] Operating Room Surgeons: Jim Barcenas MD Relevant Problems No relevant active problems Past Medical History: Past Medical History: No date: Anemia No date: Arthritis No date: Brain bleed (HCC) Comment: 2021 No date: Diverticulitis No date: Gastric ulcer No date: Leg fracture, right No date: Right arm fracture No date: Seizures (HCC) Comment: 2013 with first craniotomy- while in hospital- none since No date: Thoracic spine fracture (HCC) Past Surgical History: Past Surgical History: 07/2021: ABDOMINAL SURGERY Comment: on stomach No date: CHOLECYSTECTOMY No date: COLONOSCOPY 2014: CRANIOTOMY; Left No date: DILATION AND CURETTAGE OF UTERUS No date: HAND SURGERY; Right Comment: fracture repiair No date: SMALL INTESTINE SURGERY Comment: small part removed No date: UPPER GASTROINTESTINAL ENDOSCOPY Social History: TOBACCO: reports that she quit smoking about 4 years ago. Her smoking use included cigarettes. She has never used smokeless tobacco. ETOH: reports current alcohol use of about 1.0 standard drink of alcohol per week. Social History Substance and Sexual Activity Drug Use Not Currently Family History: Family History Problem Relation Name Age of Onset Breast cancer Mother Heart disease Father Screening: Postmenopausal Clinical information reviewed: Tobacco Allergies Meds Med Hx Surg Hx OB Status Fam Hx Soc Hx Physical Exam Airway Mallampati: II TM distance: >3 FB Neck ROM: full Mouth Open: normalendotracheal tube not in place Cardiovascular Dental (+) Upper Dentures Comments: SOME MISSING TEETH ON THE BOTTOM Pulmonary Abdominal Anesthesia Plan patient is NPO appropriate Any family history or previous problems with anesthesia no ASA 2 general Any family history or previous problems with anesthesia no The patient is not a current smoker. Anesthetic plan and risks discussed with patient. Anesthesia [place] Considerations Consider A-line IZZY Screening Labs: Lab Results Component Value Date WBC 5.8 10/20/2021 HGB 11.3 (L) 10/20/2021 MCV 83.9 10/20/2021 Lab Results Component Value Date NA 138 10/20/2021 K 4.1 10/20/2021 CL 107 10/20/2021 CO2 26 10/20/2021 BUN 8 (L) 10/20/2021 CREATININE 0.65 10/20/2021 GLUCOSE 99 10/20/2021 CALCIUM 8.5 10/20/2021 PROT 6.0 (L) 10/20/2021 ALKPHOS 71 10/20/2021 AST 40 10/20/2021 No echocardiogram results found for the past 14 days 06/23/24 ECG 12-LEAD (Preliminary) This result has not been signed. Information might be incomplete. Impression Sinus rhythm Multiple ventricular premature complexes Probable left atrial enlargement Right bundle branch block Equipment Requests: Additional Equipment Requests Vascular Equipment: arterial line kit and single transducer [id number] Observed: 06/23/2024 2:00 PM Status: COMPLETED Source: [employer] [facility] Medication List Accurate as of June 23, 2024 1:56 PM. Always use your most recent med list. baclofen 10 MG tablet Commonly known as: Lioresal Medication Adjustments for Surgery: Take morning of surgery CLARITIN PO Medication Adjustments for Surgery: Take morning of surgery hyoscyamine 0.125 MG tablet Commonly known as: Anaspaz,Levsin Medication Adjustments for Surgery: Take morning of surgery pantoprazole 40 MG EC tablet Commonly known as: ProtoNix Medication Adjustments for Surgery: Take morning of surgery TURMERIC PO Medication Adjustments for Surgery: Stop 5 days before surgery TYLENOL PO Medication Adjustments for Surgery: Take morning of surgery VITAMIN B COMPLEX PO Medication Adjustments for Surgery: Hold morning of surgery vitamin C 500 MG tablet Medication Adjustments for Surgery: Hold morning of surgery VITAMIN D PO Medication Adjustments for Surgery: Hold morning of surgery Additional Instructions: You may take your prescription pain medication. You may take Tylenol for pain. NO Motrin, ibuprofen or Advil for 24 hours prior to surgery or longer if instructed by your surgeon. NO Aleve or Naprosyn for 5 days prior to surgery or longer if instructed by your surgeon. Shower with an antibacterial soap such as Dial or Safeguard or shower kit provided to you before coming to the hospital. No makeup, lotion, powder, deodorant or body spays. No hair products. Remove all jewelry and leave it at home. Wear loose comfortable clothing to go home in. You may brush your teeth morning of surgery. Do not wear contacts day of surgery. No marijuana (THC), smoking or alcohol for 24 hours prior to surgery. Please arrange for a responsible adult to drive you home after your surgery and that there is a responsible adult with you for 24 hours post discharge. If you have specific questions, please call your surgeon. You will receive a call the day before your surgery to verify your arrival time and date. You will be asked to arrive at least two hours prior to your scheduled surgery time. Please bring your [employer] [facility] folder and medication list with you day of surgery. We encourage you to write down any questions you may have for the surgeon, anesthesiologist, or other members of the surgical team and bring it with you the day of surgery. Please bring photo ID and insurance information. PROGRESS NOTE Observed: 06/23/2024 2:00 PM Status: COMPLETED Source: [employer] [facility] Carla Sanchez : 1950 Primary Care Physician: MARY SMITH The patient and/or family/surrogate voluntarily agreed to participate in ACP services. Patient?s cognitive capacity: AXO3 Code Status: [x] [FULL CODE - Continue all advanced life support: CPR,intubation,invasive procedures] [_] [DNR-CCA - DO NOT do CPR, intubation] [_] [DNR-PULLER OVER - Comfort care only] [_] DNR form [was/was not] signed Summary of discussion: The patient health care POA/ surrogate is the following: No assignment information was provided . [Condition that instigated the ACP on this DOS, relevant PMH, functional status, goals of care, and whom this was discussed with including names and relationship to the patient, and any relevant advance care documentation discussion] I answered all the patient/family questions that I could within the range and scope of the current medical situation. We discussed the medical conditions, risks, benefits, outcomes, and goals of care at this time for the patient's medical issues at hand in the face of the patient's chronic issues and current presentation. Total time spent: 5 minutes were spent discussing the patient's resuscitation status, advance care planning, and end of life care, with patient and/or family/surrogate. Pilo Hercules PA-C Acute care [facility] 06/23/2024, 2:44 PM HISTORY AND PHYSICAL NOTE Observed: 06/05 2:00 PM Status: COMPLETED Source: [facility] Comprehensive PreSurgical Hi story and Physical ? Name: Carla Sanchez : 1950 (Age-74 y.o.) Date of Service: Pt seen/examined on 06/23/2024 Procedure Information Date/Time: 06/27/24 1030 Procedure: LEFT CRANIOTOMY FOR REMOVAL OF INFECTED BONE FLAP (Head) - 2 HOUR CASE Location: [address] Operating Room Surgeons: Jim Barcenas MD Chief Complaint: Exposed hardware from her previous craniotomy surgery . ASSESSMENT/PLAN: Patient is considered intermediate risk for this intermediate risk procedure/surgery noted above with no reducible risk factors. Based on the above evaluation, the benefits of the planned procedure likely exceed the risks. The patient is medically optimized to proceed with the planned procedure without any further cardiopulmonary testing. 1) Exposed hardware from her left craniotomy Managed per surgery 2) FIBROMYALGIA ; ON BACLOFEN ;PATIENT NOT AWARE WHO IS PRESCRIBING IT 3)GERD - MEDS: PROTONIX - stable -avoidance of triggers encouraged - Managed by PCP 4) RECENT H/O UTI ;UA ORDERED 5) SNORE 6) H/O DUODENAL ULCER ;S/P SURGERY IN THE REMOTE PAST [facility] Visit Type: Pre-Admission Testing Visit Labs Ordered: YES - PER PAT PROTOCOL LAB RESULTS PENDING AT THE TIME OF CLOSURE OF ENCOUNTER Sleep Referral Ordered: NO - NEGATIVE SCREEN PER SLEEP REFERRAL PROTOCOL Total time spent (which include face to face and non face to face encounters) : 45 minutes Toxic drug monitoring/narrow therapeutic index drug monitoring : # Drug name : MULTIPLE # Route administered : PO # Method of monitoring : LAB AND EKG PAT Protocol referenced includes: 1. Anesthesia Lab Protocol Orders 2. Perioperative Cardiovascular Risk Assessment 3. Anesthesia Assessment 4. Pain Assessment and Acute Pain Service Consult (if appropriate) 5. Medical Clearance/Consult from Internal Medicine (IMS) 6. Shower/Wash Order (for designated surgeries) 7. IZZY Screen and Sleep Clinic Referral (if appropriate) History Of Present Illness: Patient here in PAT along with her sister . 74 y.o. female who presents with chief complaint mentioned above. Per surgeon's note dated 05/12/24 73 y.o. presents with report of exposed hardware from previous cranial surgery. Patient reports that over the past few weeks she has noticed an area on the left forehead along the hairline of exposed metal. She states that as of this morning she noticed a little bit of drainage and blood seeping from the area. It is very painful and red and extremely tender to touch. She has had a previous right craniotomy for subdural hematoma with subsequent MMA embolization in September [address] Barcenas and [facility]. She does report that she has had previous left-sided cranial surgeries as well and is unable to remember the exact date or who performed that surgery. Ms. Sanchez returns today with a CT scan of the head for review. She continues to have an exposed area of hardware on the left frontal portion of her head. She states that she is beginning to feel another area behind it that has become painful and she feels that it is getting worse over time. Pt has seen the surgeon and elected for above procedure. Denies Hx of HTN, DM, Asthma/COPD, IZZY, CAD, CHF, a fib, MA, TIA/CVA, DVT/PE Hx problems with anesthesia? - Denies Past Medical History: Past Medical History: No date: Anemia No date: Arthritis No date: Brain bleed (HCC) Comment: 2021 No date: Diverticulitis No date: Gastric ulcer No date: Leg fracture, right No date: Right arm fracture No date: Seizures (HCC) Comment: 2013 with first craniotomy- while in hospital- none since No date: Thoracic spine fracture (HCC) Past Surgical History: Past Surgical History: 07/2021: ABDOMINAL SURGERY Comment: on stomach No date: CHOLECYSTECTOMY No date: COLONOSCOPY 2014: CRANIOTOMY; Left No date: DILATION AND CURETTAGE OF UTERUS No date: HAND SURGERY; Right Comment: fracture repiair No date: SMALL INTESTINE SURGERY Comment: small part removed No date: UPPER GASTROINTESTINAL ENDOSCOPY Medications Prior to Admission: Current Outpatient Medications: Acetaminophen (TYLENOL PO), Take by mouth., Disp: , Rfl: Ascorbic Acid (vitamin C) 500 MG tablet, TAKE 1 TABLET BY MOUTH ONCE DAILY AT 10AM, Disp: , Rfl: B Complex Vitamins (VITAMIN B COMPLEX PO), Take by mouth., Disp: , Rfl: baclofen (Lioresal) 10 MG tablet, Take 10 mg by mouth 2 times daily as needed., Disp: , Rfl: hyoscyamine (Anaspaz,Levsin) 0.125 MG tablet, TAKE 1 TABLET BY MOUTH EVERY 4 HOURS NEEDED FOR STOMACH CRAMPS., Disp: , Rfl: Loratadine (CLARITIN PO), Take by mouth., Disp: , Rfl: pantoprazole (ProtoNix) 40 MG EC tablet, Take 40 mg by mouth daily., Disp: , Rfl: TURMERIC PO, Take by mouth., Disp: , Rfl: VITAMIN D PO, Take by mouth., Disp: , Rfl: CHRONIC NARCOTIC USAGE: Yes - Narcotics Used: BACLOFEN FOR FIBROMYALGIA Allergies: Ibuprofen, Penicillins, and Prednisone If patient has opioid allergy, is it okay to take Acetaminophen: Yes Social History: TOBACCO: reports that she quit smoking about 4 years ago. Her smoking use included cigarettes. She has never used smokeless tobacco. ETOH: reports current alcohol use of about 1.0 standard drink of alcohol per week. Social History Substance and Sexual Activity Drug Use Not Currently Family History: Family History Problem Relation Name Age of Onset Breast cancer Mother Heart disease Father REVIEW OF SYSTEMS: Review of Systems Constitutional: Negative for chills and fever. Respiratory: Negative for shortness of breath. Gastrointestinal: Negative for nausea and vomiting. Pertinent positives as noted in the HPI. Physical Exam: Physical Exam Vitals and nursing note reviewed. Constitutional: Appearance: Normal appearance. HENT: Head: Normocephalic and atraumatic. Mouth/Throat: Mouth: Mucous membranes are moist. Eyes: Extraocular Movements: Extraocular movements intact. Pupils: Pupils are equal, round, and reactive to light. Cardiovascular: Rate and Rhythm: Normal rate and regular rhythm. Pulses: Normal pulses. Pulmonary: Effort: Pulmonary effort is normal. Abdominal: General: Bowel sounds are normal. Musculoskeletal: Cervical back: Normal range of motion and neck supple. Skin: General: Skin is warm. Neurological: General: No focal deficit present. Mental Status: She is alert. Psychiatric: Mood and Affect: Mood normal. Behavior: Behavior normal. Vitals: Vitals Value Taken Time BP 121/71 06/23/24 1339 Temp 36.9 ?C (98.5 ?F) 06/23/24 1339 Pulse 93 06/23/24 1339 Resp 16 06/23/24 1339 SpO2 94 % 06/23/24 1339 BP 121/71 Pulse 93 Temp 36.9 ?C (98.5 ?F) (Temporal) Resp 16 Ht 1.702 m (5' 7) Wt 79.6 kg (175 lb 6.4 oz) SpO2 94% BMI 27.47 kg/m? Labs: Lab Results Component Value Date WBC 5.8 10/20/2021 HGB 11.3 (L) 10/20/2021 MCV 83.9 10/20/2021 Lab Results Component Value Date NA 138 10/20/2021 K 4.1 10/20/2021 CL 107 10/20/2021 CO2 26 10/20/2021 BUN 8 (L) 10/20/2021 CREATININE 0.65 10/20/2021 GLUCOSE 99 10/20/2021 CALCIUM 8.5 10/20/2021 PROT 6.0 (L) 10/20/2021 ALKPHOS 71 10/20/2021 AST 40 10/20/2021 Naif's Simple Cardiac Risk Index: NAIF'S SIMPLE CARDIAC RISK SCORE: 1 Interpretation: 0 Points Class I 0.5% 1 Point Class II 1.3% 2 Points Class III 3.6% 3+ Points Class IV 9.1% METS >4 METS (Able to climb a flight of stairs with no chest pain or shortness of breath): Yes Walk indoors, such as around the house (1.75 METs), Do light work around the house, such as dusting or washing dishes (2.70 METs), Take care of self, that is eating, dressing, bathing, using the toilet (2.75 METs), Do moderate work around the house such as vacuuming, sweeping floors, or carrying in groceries (3.50 METs), Do yardwork, such as raking leaves, weeding,or pushing a power mower (4.50 METs), Climb a flight of stairs or walk up a hill (5.50 METs) PAT Pain Score: Postop Pain Management Plan (Pain consult ordered?): Pain consult not indicated at this time ? EKG: Done today: Encounter Date: 06/23/24 ECG 12 lead Result Value Heart Rate 89 QRSD Interval 121 QT Interval 400 QTC Interval 481 P [place] 3 QRS [place] 2 T Wave [place] -31 [place] Interval 141 Impression Sinus rhythm Multiple ventricular premature complexes Probable left atrial enlargement Right bundle branch block ECHO and EF:None on file No components found for: LVEF, LVEFMODE Electronically signed by: Pilo Hercules PA-C Date: 06/23/2024 at 2:46 PM 0730 AM CHECKED THE PENDING LAB FROM 06/23/24 36 Observed: 06/19/2024 9:03 AM Status: COMPLETED Source: [facility] Spoke with patient, patient wanted to r/s her PAT due to weather. PAT rescheduled for Sunday 2pm 06/23/24 36 Observed: 06/09/2024 11:39 AM Status: COMPLETED Source: [facility] Surgery is approved--approva l scanned into media. CASE ID: PAT:06/20 SX:06/27 POST-OP:07/14 Called Patient:LVM WITH ALL SX INFORMAITON. MAILED LETTER OUT TO PATIENT. MyChart message unable to be sent. No active MyChart. Pre/Post-op instructions given at office visit. 36 Observed: 05/12/2024 11:21 AM Status: COMPLETED Source: [facility] Sx scheduling process review ed at office visit. Pt given a tentative sx date 06/27/2024, but advised due to insurance and physician needs this date could change. Pt verbalized understanding. 36 Observed: 05/12/2024 11:21 AM Status: COMPLETED Source: [facility] Procedure: L craniotomy for removal of infected bone flap Anesthesia: GET Time: 2 Positioning/Frame: Supine Diamond: Y Pre-Op Imaging:Loaded in [facility] Inpatient/Outpatient: In Medications to DC: Other:[id number] DX:[id number] PROGRESS NOTE Observed: 05/12/2024 10:00 AM Status: COMPLETED Source: [facility] Patient Name: Carla Sanchez Patient : 1950 PCP: MARY SMITH History of Present Ilness: 73 y.o. presents with report of exposed hardware from previous cranial surgery. Patient reports that over the past few weeks she has noticed an area on the left forehead along the hairline of exposed metal. She states that as of this morning she noticed a little bit of drainage and blood seeping from the area. It is very painful and red and extremely tender to touch. She has had a previous right craniotomy for subdural hematoma with subsequent MMA embolization in September [address] Barcenas and [facility]. She does report that she has had previous left-sided cranial surgeries as well and is unable to remember the exact date or who performed that surgery. Ms. Sanchez returns today with a CT scan of the head for review. She continues to have an exposed area of hardware on the left frontal portion of her head. She states that she is beginning to feel another area behind it that has become painful and she feels that it is getting worse over time. Chief Complaint Patient presents with Follow-up Patient present for CT follow up. Patient states she has been having scant amount of clear to yellowish drainage from the area on the left side of her forehead. Past Medical History: Past Medical History: Diagnosis Date Anemia Brain bleed (HCC) 2013, 2021 Diverticulitis Gastric ulcer Leg fracture, right Right arm fracture Thoracic spine fracture (HCC) Past Surgical History: Past Surgical History: Procedure Laterality Date ABDOMINAL SURGERY 07/2021 on stomach CRANIOTOMY Left 2013 DILATION AND CURETTAGE OF UTERUS HAND SURGERY Right fracture repiair Home Medications: Prior to Admission medications Medication Sig Start Date End Date Taking? Authorizing Provider Acetaminophen (TYLENOL PO) Take by mouth. Yes Historical Provider, Ascorbic Acid (vitamin C) 500 MG tablet TAKE 1 TABLET BY MOUTH ONCE DAILY AT 10AM 08/30/23 Yes Historical Provider, B Complex Vitamins (VITAMIN B COMPLEX PO) Take by mouth. Yes Historical Provider, baclofen (Lioresal) 10 MG tablet Take 10 mg by mouth 2 times daily as needed. 02/12/24 Yes Historical Provider, hyoscyamine (Anaspaz,Levsin) 0.125 MG tablet TAKE 1 TABLET BY MOUTH EVERY 4 HOURS NEEDED FOR STOMACH CRAMPS. 07/30/23 Yes Historical Provider, Loratadine (CLARITIN PO) Take by mouth. Yes Historical Provider, pantoprazole (ProtoNix) 40 MG EC tablet Take 40 mg by mouth daily. Yes Historical Provider, TURMERIC PO Take by mouth. Yes Historical Provider, VITAMIN D PO Take by mouth. Yes Historical Provider, Allergies: Ibuprofen, Penicillins, and Prednisone Social History: TOBACCO: reports that she quit smoking about 4 years ago. Her smoking use included cigarettes. She has never used smokeless tobacco. ETOH: reports current alcohol use of about 1.0 standard drink of alcohol per week. RECREATIONAL DRUG USE: Social History Substance and Sexual Activity Drug Use Not Currently Family History: Family History Problem Relation Name Age of Onset Breast cancer Mother Heart disease Father Review of Systems Constitutional: Negative. HENT: Negative. Eyes: Negative. Respiratory: Negative. Cardiovascular: Negative. Gastrointestinal: Negative. Endocrine: Negative. Genitourinary: Negative. Musculoskeletal: Negative. Skin: Negative. Neurological: Positive for headaches. Psychiatric/Behavioral: Negative. Physical Examination: Vitals: 05/12/24 0951 BP: 127/73 Pulse: 94 Physical Exam Constitutional: Appearance: Normal appearance. HENT: Head: Normocephalic. Comments: Very small exposed area of metal hardware in the left forehead along hairline. It is mildly erythematous around the edges, unable to express any purulence or drainage. Area remains present, redness around the pinpoint area of exposed hardware, no expressible drainage. Eyes: General: Lids are normal. Extraocular Movements: Extraocular movements intact. Pupils: Pupils are equal, round, and reactive to light. Cardiovascular: Rate and Rhythm: Normal rate. Pulmonary: Effort: Pulmonary effort is normal. Abdominal: Palpations: Abdomen is soft. Musculoskeletal: General: Normal range of motion. Cervical back: Normal range of motion and neck supple. Skin: General: Skin is warm and dry. Neurological: General: No focal deficit present. Mental Status: She is alert. Motor: Motor strength is normal. Coordination: Coordination is intact. Deep Tendon Reflexes: Reflex Scores: Brachioradialis reflexes are 1+ on the right side and 1+ on the left side. Patellar reflexes are 1+ on the right side and 1+ on the left side. Psychiatric: Mood and Affect: Mood normal. Judgment: Judgment normal. Neurological Exam Mental Status Alert. Cranial Nerves CN II: Visual acuity is normal. Visual cummings full to confrontation. CN III, IV, : Extraocular movements intact bilaterally. Normal lids and orbits bilaterally. Pupils equal round and reactive to light bilaterally. CN V: Facial sensation is normal. CN VII: Full and symmetric facial movement. CN VIII: Hearing is normal. CN IX, X: Palate elevates symmetrically. Normal gag reflex. CN XI: Shoulder shrug strength is normal. CN XII: Tongue midline without atrophy or fasciculations. Motor Normal muscle bulk throughout. Normal muscle tone. Strength is 5/5 throughout all four extremities. Sensory Sensation is intact to light touch, pinprick, vibration and proprioception in all four extremities. Reflexes Right Left Brachioradialis 1+ 1+ Patellar 1+ 1+ Coordination [place]abv[place]-il-kymi, rapid alternating movements and evnp-ph-etku normal bilaterally without dysmetria. Gait Normal casual, toe, heel and tandem gait. Results Labs: Last 24hrs No results found for this or any previous visit (from the past 24 hours). Radiology Personal review: CT scan of the head shows previous postop changes right and left side of her head. There are craniotomy flaps on the right and left. The hardware for the front of her left craniotomy flap appears very close to the level of the skin. ASSESSMENT / PLAN : Exposed hardware from her left craniotomy from years ago. Because it is exposed we have to consider it infected. Today I recommended to her left craniotomy for removal of the bone flap. Risks and benefits of the procedure were discussed with her. She understands we would leave the bone off for several months and then replace it with a synthetic bone flap several months down the line. She would like to proceed with surgery. Will schedule her for surgery at her convenience. Diagnosis Plan 1. Exposed orthopaedic hardware ([facility]/HCC) ([facility]) Procedure: L craniotomy for removal of infected bone flap Anesthesia: GET Time: 2 Positioning/Frame: Supine Company/Implants: O-Arm: N C-Arm: N Stealth Navigation: N Diamond: Y Microscope: N Brace: Pre-Op Imaging:Loaded in [employer]: N Inpatient/Outpatient: In Medications to DC: Other:[id number] CE VISIT Observed: 05/12/2024 10:00 AM Status: COMPLETED Source: [employer] [facility] [id number] Carla Sanchez [birth year] F Date Provider Department Center 05/12/2024 [id number] PAL [facility] None Family History Problem Relation Age of Onset Breast cancer Mother Heart disease Father Family Status - Relation Status Age at Mother Father Level of Service:06729 [place] OFFICE/OUTPATIENT ESTABLISHED MOD MDM 30 MIN Reason for Visit and Comments: Follow-up [[id number]] - Patient present for CT follow up. Patient states she has been having scant amount of clear to yellowish drainage from the area on the left side of her forehead. 36 Observed: 05/06/2024 4:32 PM Status: COMPLETED Source: [employer] [facility] Pt is bring a disk to her ap pt next week. 36 Observed: 04/21/2024 1:58 PM Status: COMPLETED [facility] No auth required [place] e [address]. All information has been faxed to [facility] per patients request. . Tried to call patient and advise phone number listed in chart [phone] has been disconnected or changed. Unable to contact patient. OFFICE VISIT Observed: 04/21/2024 11:30 AM Status: COMPLETED Source: [employer] [facility] [id number] Carla Sanchez [birth year] [facility] Provider Department Center 04/21/2024 [id number] HEART [facility] None Family History Problem Relation Age of Onset Breast cancer Mother Heart disease Father Family Status - Relation Status Age at Mother Father Level of Service:[id number] [place] OFFICE/OUTPATIENT NEW MODERATE MDM 45 MINUTES Reason for Visit and Comments: Follow-up [[id number]] - previous subdural hematoma, bone is sticking out of forehead PROGRESS NOTE Observed: 04/21/2024 11:30 AM Status: COMPLETED Source: [employer] [facility] Patient Name: Carla Sanchez Patient : 1950 PCP: MARY SMITH History of Present Ilness: 73 y.o. presents with report of exposed hardware from previous cranial surgery. Patient reports that over the past few weeks she has noticed an area on the left forehead along the hairline of exposed metal. She states that as of this morning she noticed a little bit of drainage and blood seeping from the area. It is very painful and red and extremely tender to touch. She has had a previous right craniotomy for subdural hematoma with subsequent MMA embolization in September [address] Barcenas and [facility]. She does report that she has had previous left-sided cranial surgeries as well and is unable to remember the exact date or who performed that surgery. Chief Complaint Patient presents with Follow-up previous subdural hematoma, bone is sticking out of forehead Past Medical History: Past Medical History: Diagnosis Date Anemia Brain bleed (HCC) 2013, 2021 Diverticulitis Gastric ulcer Leg fracture, right Right arm fracture Thoracic spine fracture (HCC) Past Surgical History: Past Surgical History: Procedure Laterality Date ABDOMINAL SURGERY 07/2021 on stomach CRANIOTOMY Left 2013 DILATION AND CURETTAGE OF UTERUS HAND SURGERY Right fracture repiair Home Medications: Prior to Admission medications Medication Sig Start Date End Date Taking? Authorizing Provider Acetaminophen (TYLENOL PO) Take by mouth. Yes Historical Provider, Ascorbic Acid (vitamin C) 500 MG tablet TAKE 1 TABLET BY MOUTH ONCE DAILY AT 10AM 08/30/23 Yes Historical Provider, B Complex Vitamins (VITAMIN B COMPLEX PO) Take by mouth. Yes Historical Provider, baclofen (Lioresal) 10 MG tablet Take 10 mg by mouth 2 times daily as needed. 02/12/24 Yes Historical Provider, hyoscyamine (Anaspaz,Levsin) 0.125 MG tablet TAKE 1 TABLET BY MOUTH EVERY 4 HOURS NEEDED FOR STOMACH CRAMPS. 07/30/23 Yes Historical Provider, Loratadine (CLARITIN PO) Take by mouth. Yes Historical Provider, pantoprazole (ProtoNix) 40 MG EC tablet Take 40 mg by mouth daily. Yes Historical Provider, TURMERIC PO Take by mouth. Yes Historical Provider, VITAMIN D PO Take by mouth. Yes Historical Provider, Allergies: Ibuprofen, Penicillins, and Prednisone Social History: TOBACCO: reports that she quit smoking about 4 years ago. Her smoking use included cigarettes. She has never used smokeless tobacco. ETOH: reports current alcohol use of about 1.0 standard drink of alcohol per week. RECREATIONAL DRUG USE: Social History Substance and Sexual Activity Drug Use Not Currently Family History: Family History Problem Relation Name Age of Onset Breast cancer Mother Heart disease Father Review of Systems Constitutional: Negative. HENT: Negative. Eyes: Negative. Respiratory: Negative. Cardiovascular: Negative. Gastrointestinal: Negative. Endocrine: Negative. Genitourinary: Negative. Musculoskeletal: Negative. Skin: Negative. Neurological: Positive for headaches. Psychiatric/Behavioral: Negative. Physical Examination: Vitals: 04/21/24 1133 BP: 110/71 Pulse: 79 Physical Exam Constitutional: Appearance: Normal appearance. HENT: Head: Normocephalic. Comments: Very small exposed area of metal hardware in the left forehead along hairline. It is mildly erythematous around the edges, unable to express any purulence or drainage. Eyes: General: Lids are normal. Extraocular Movements: Extraocular movements intact. Pupils: Pupils are equal, round, and reactive to light. Cardiovascular: Rate and Rhythm: Normal rate. Pulmonary: Effort: Pulmonary effort is normal. Abdominal: Palpations: Abdomen is soft. Musculoskeletal: General: Normal range of motion. Cervical back: Normal range of motion and neck supple. Skin: General: Skin is warm and dry. Neurological: General: No focal deficit present. Mental Status: She is alert. Motor: Motor strength is normal. Coordination: Coordination is intact. Deep Tendon Reflexes: Reflex Scores: Brachioradialis reflexes are 1+ on the right side and 1+ on the left side. Patellar reflexes are 1+ on the right side and 1+ on the left side. Psychiatric: Mood and Affect: Mood normal. Judgment: Judgment normal. Neurological Exam Mental Status Alert. Cranial Nerves CN II: Visual acuity is normal. Visual cummings full to confrontation. CN III, IV, : Extraocular movements intact bilaterally. Normal lids and orbits bilaterally. Pupils equal round and reactive to light bilaterally. CN V: Facial sensation is normal. CN VII: Full and symmetric facial movement. CN VIII: Hearing is normal. CN IX, X: Palate elevates symmetrically. Normal gag reflex. CN XI: Shoulder shrug strength is normal. CN XII: Tongue midline without atrophy or fasciculations. Motor Normal muscle bulk throughout. Normal muscle tone. Strength is 5/5 throughout all four extremities. Sensory Sensation is intact to light touch, pinprick, vibration and proprioception in all four extremities. Reflexes Right Left Brachioradialis 1+ 1+ Patellar 1+ 1+ Coordination Ukjdqx-pj-bhrh, rapid alternating movements and umrg-ed-nbcz normal bilaterally without dysmetria. Gait Normal casual, toe, heel and tandem gait. Results Labs: Last 24hrs No results found for this or any previous visit (from the past 24 hours). Radiology Personal review: None for review ASSESSMENT / PLAN : It appears that some hardware placed at her left craniotomy at some point in her life is exposed now. This is separate from the bur holes we did on the right a couple of years ago. Will obtain a updated CT scan of her head to try and help determine what might be in place there this will help guide a procedure to remove the exposed hardware. She will follow-up with us after the CT scan for review and surgical planning. Diagnosis Plan 1. Exposed orthopaedic hardware (CMS/HCC) (HCC) CT head wo IV contrast 36 Observed: 04/17/2024 2:30 PM Status: COMPLETED Source: [facility] Spoke with patient, got her in as soon as possible with Dr. Barcenas, scheduled for 04/21 36 Observed: 04/16/2024 4:04 PM Status: COMPLETED Source: [facility] Name of caller: Carla Contact phone number: [phone] Relationship to Patient: patient Provider: Narinder Practice: Neurosurgery Chief Complaint/Reason for Call: Pt is calling to schedule an appointment with Dr Barcenas to be seen for a bone chip in the Left side of her forehead that is pushing underneath the skin from where she had subdural hematoma surgery previously. She states that she can feel it and that it hurts up into her hairline and she feels it must be a bone chip. She would like to be seen by Dr Barcenas as he did one of her surgeries in 2021 - (right subdural hematoma 09/09/21) Please call to schedule. Best time of day caller can be reached: Any Patient advised that office/PCP has 24-48 business hours to return their call: Yes ALLERGIES DATE TYPE / CODE NAME / CODE REACTION SEVERITY SOURCE 08/28/2024 DRUG INGREDI/960808266(SNOM ED CT) IBUPROFEN Hem Stroke [facility] 08/28/2024 DRUG INGREDI/[id number](SNOM ED CT) PENICILLIN G Rash [facility] 08/28/2024 DRUG INGREDI/[id number](SNOM ED CT) [facility]/DISCHARGE ACCOUNT NUMBER ADMITTING ENCOUNTER CLASS LOCATION SOURCE 10/06/2024/10/07/19 [id number] Ambulatory Buildin [id number] [facility] 09/19/2024/09/22/19 [id number] JIM BARCENAS Inpatient Encounter Buildin [id number]: [facility] T2-214Bed: T2-214 A [facility] 09/15/2024/09/20/19 25 [id number] MARY SMITH Ambulatory Building:4 0 [facility] 09/12/2024/09/13/19 25 [id number] Ambulatory Buildin [id number] [facility] 09/08/2024/09/13/19 25 [id number] MARY SMITH Ambulatory Building:4 0 [facility] 09/03/2024/09/08/19 25 [id number] MARY SMITH Ambulatory Building:4 0 [facility] 09/02/2024/09/03/19 25 [id number] Ambulatory Buildin [id number] [facility] 08/28/2024/09/02/19 25 [id number] MARY SMITH Ambulatory Building:4 0 [facility] 08/11/2024/08/12/19 25 [id number] Ambulatory Buildin [id number] [facility] 08/05/2024/08/06/19 25 [id number] Ambulatory Buildin [id number] [facility] 07/16/2024/07/16/19 25 [id number] Ambulatory Buildin [id number] [facility] 07/06/2024/07/09/19 25 [id number] JORGE ALBERTO SMYTH Inpatient Encounter Buildin [id number]: [facility] W3-324Bed: W3-324 B [facility] 06/27/2024/07/03/19 25 [id number] JOSE PITTS Inpatient Encounter Buildin [id number]: [facility] W3-333Bed: W3-333 A [facility] 06/23/2024/06/23/19 [id number] Ambulatory Buildin [id number] [facility] 05/12/2024/05/12/20 [id number] Ambulatory Buildin [id number] [facility] 04/21/2024/04/21/20 [id number] Ambulatory Buildin [id number] [facility] PAYERS ENCOUNTER GUARANTOR PAYER SUBSCRIBER SOURCE 10/06/2024 Primary Insurance:MEDICARE Policy Number: [id number] Date:4331-18-11Qzc n Name:MedicarePO [address]442[place]IZ[place], [place] [address]IZ: CARLA THOMPSONB: [id number] [place], [place] [address] [place] [address] 10/06/2024 Secondary Insurance:Georges cy Number: [id number] ve Date:0913-14-52Ykf n Name:Supp CARLA THOMPSONB: [id number] [place], [place] [address] [place] [address] 09/19/2024 Primary Insurance:MEDICARE Policy Number: [id number] ve Date:9905-25-36Jyf n Name:MedicarePO [address]244PQIALXMZT, [place] [address]DV: CARLA THOMPSONB: [id number] [place], [place] [address] [place] [address] 09/19/2024 Secondary Insurance:Georges cy Number: [id number] ve Date:0848-15-53Nez n Name:Supp CARLA THOMPSONB: [id number] [place], [place] [address] [place] [address] 09/15/2024 CARLA JETT: [place], [place] [address]Gcl: () Primary Insurance:AARPPoli cy Number: [id number] ve Date:8286-43-57[address], [place] [address]DQ: CARLA Augusto JETT: [id number] [place], [place] [address]Mmk: () [facility] 09/15/2024 Secondary Insurance:MEDICARE Policy Number: [id number] ve Date:1714-95-15VJF J15 PART A CLAIMSPO [address] [address]PNBDPQIKA, [place] [address]UT: CARLA Casas JAYB: [id number] [place], [place] [address]Slc: () [facility] 09/12/2024 Primary Insurance:MEDICARE Policy Number: [id number] Date:5057-52-49Ztr n Name:MedicarePO [address]IP[place]SV, [place] [address]JA: CARLA Casas JAYB: [id number] [address] 09/12/2024 Secondary Insurance:Georges cy Number: [id number] ve Date:5366-84-61Zcp n Name:Supp CARLA SANCHEZB: [id number] [address] 09/08/2024 CARLA JETT: [place], [place] [address]Inc: () Primary Insurance:AARIESHAoli cy Number: [id number] ve Date:4032-98-20[address]EWRLFQF, [place] [address]AS: CARLA THOMPSONB: [id number] [place], [place] [address]Oem: () [facility] 09/08/2024 Secondary Insurance:MEDICARE Policy Number: [id number] Date:2715-00-31KLY J15 PART A CLAIMSPO [address] [address]GNFWIYMAI, [place] [address]ZL: CARLA JETT: [id number] [place], [place] [address]Obz: () [facility] 09/03/2024 CARLA JETT: [place], [place] [address]Tka: () Primary Insurance:Georges cy Number: [id number] ve Date:1661-23-94[address], [place] [address]IR: CARLA JETT: [id number] [place], [place] [address]Dbd: () [facility] 09/03/2024 Secondary Insurance:MEDICARE Policy Number: [id number] ve Date:0024-92-42QLJ J15 PART A CLAIMSPO [address] [address]KASAMXCBT, [place] [address]YS: CARLA JETT: [id number] [place], [place] [address]Dtu: () [facility] 09/02/2024 Primary Insurance:MEDICARE Policy Number: [id number] ve Date:3465-34-42Wfy n Name:MedicarePO [address]JEPXHEIVS, [place] [address]IJ: CARLA JETT: [id number] [place], [place] [address] [place] [address] 09/02/2024 Secondary Insurance:Georges cy Number: [id number] ve Date:7016-71-68Tmv n Name:Supp CARLA JETT: [id number] [place], [place] [address] [place] [address] 08/28/2024 CARLA JETT: [id number] [place], [place] [address]Qox: () Primary Insurance:Georges cy Number: [id number] ve Date:4611-38-49[address], [place] [address]HK: CARLA THOMPSONB: [id number] [place], [place] [address]Xzd: () [facility] 08/28/2024 Secondary Insurance:MEDICARE Policy Number: [id number] Date:3497-89-55IPC J15 PART A CLAIMSPO [address] [address]RXFBZAMSC, [place] [address]XN: CARLA THOMPSONB: [id number] [place], [place] [address]Ohl: () [facility] 08/11/2024 Primary Insurance:MEDICARE Policy Number: [id number] ve Date:2692-05-99Fti n Name:MedicarePO [address] [place] [address]IF: CARLA JETT: [id number] [address] 08/11/2024 Secondary Insurance:Georges cy Number: [id number] ve Date:1919-84-99Frk n Name:Supp CARLA JETT: [id number] [address] 08/05/2024 Primary Insurance:MEDICARE Policy Number: [id number] ve Date:7583-32-02Bxc n Name:MedicarePO [address]VHTXGBMNU, [place] [address]WL: CARLA JETT: [id number] [address] 08/05/2024 Secondary Insurance:AARPPoli cy Number: [id number] ve Date:8982-14-58Epv n Name:Tabitha THOMPSONB: [id number] [address] 07/16/2024 Primary Insurance:MEDICARE Policy Number: [id number] ve Date:6261-14-79Bof n Name:MedicarePO [address]QN[place]VO, [place] [address]KC: CARLA SANCHEZB: [id number] [address] 07/16/2024 Secondary Insurance:JAIRONPPoli cy Number: [id number] ve Date:1160-07-86Tuw n Name:Supp CARLA THOMPSONB: [id number] [address] 07/06/2024 Primary Insurance:MEDICARE Policy Number: [id number] Date:4558-46-34Jyo n Name:MedicarePO [address]UYM[place]UQG, [place] [address]YJ: CARLA SANCHEZB: [id number] [address] 07/06/2024 Secondary Insurance:AARPPoli cy Number: [id number] ve Date:7960-87-43Znn n Name:Supp CARLA THOMPSONB: [id number] [address] 06/27/2024 Primary Insurance:MEDICARE Policy Number: [id number] ve Date:9265-38-06Jgp n Name:MedicarePO [address]82AGWWXQHPQ, [place] [address]TQ: CARLA SANCHEZB: [id number] [address] 06/27/2024 Secondary Insurance:AARPPoli cy Number: [id number] ve Date:5282-08-99Ckw n Name:Tabitha THOMPSONB: [id number] [address] 06/23/2024 Primary Insurance:MEDICARE Policy Number: [id number] ve Date:0947-88-19Tce n Name:MedicarePO [address]ANRDNMP, [place] [address]WS: CARLA Casas JAYB: [id number] [address] 06/23/2024 Secondary Insurance:JAIRONIESHAche cy Number: [id number] ve Date:0240-64-60Rzr n Name:Supp CARLA THOMPSONB: [id number] [place] [address] 05/12/2024 Primary Insurance:MEDICARE Policy Number: [id number] ve Date:7050-63-77Wtc n Name:MedicarePO [address]HL, [place] [address]JF: CARLA Casas JAYB: [id number] [place] [address] 05/12/2024 Secondary Insurance:Georges cy Number: [id number] ve Date:2796-47-39Bbk n Name:Supp CARLA SANCHEZB: [id number] [address] 04/21/2024 Primary Insurance:MEDICARE Policy Number: [id number] ve Date:5390-86-27Ofb n Name:MedicarePO [address]BH[place], [place] [address]KL: CARLA Casas JAYB: [id number] [address] 04/21/2024 Secondary Insurance:JAIRONPPche cy Number: [id number] ve Date:8292-06-84Syr n Name:Tabitha Casas JAYB: [id number] [address]
--- NOTE | 2025-03-03 10:40 | BD_ITS ---
PROCEDURE: DEXA BONE DENSITY STUDY 03/03/2025 REASON FOR EXAM: F/U OSTEOPENIA PRE HORMONAL RX FOR BREAST CANCER F, age 74 y/o . Postmenopausal screening. TECHNIQUE: Procedure Code: BDDBD Modality: DX Procedure: DEXA BONE DENSITY STUDY COMPARISON: 2022 FINDINGS: BMD and T-SCORES Lumbar spine: 0.916 g/cm2, T-score -1.2 Levels: L1 through L4 Change from prior: Decrease of 6%. Left femoral neck: 0.638 g/cm2, T-score -1.9 Femoral neck comparison data not recommended for monitoring change. Prior T-score Left total hip: 0.706 g/cm2, T-score -1.9 Change from prior: Decrease of 13.3%. Right femoral neck: 0.598 g/cm2, T-score -2.3 Femoral neck comparison data not recommended for monitoring change. Prior T-score Right total hip: 0.744 g/cm2, T-score -1.6 Change from prior: Decrease of 5.3%. The World Health Organization has defined the following categories based on bone density: Normal bone density: T-score equal to or greater than -1.0 Osteopenia: T-score between -1.0 and -2.5 Osteoporosis: T-score equal to or less than -2.5 FRAX (or Comparable) Fracture Risk Assessment: 10 Year Probability of Fracture: Major Osteoporotic Fracture: 34% Hip Fracture: 18% (Note: FRAX is not to be reported in setting of normal range bone density, osteoporosis on DEXA, known history of osteoporosis, prior osteoporotic hip or vertebral fracture, or for any patient undergoing pharmacological treatment for bone loss.) The National Osteoporosis Foundation (NOF) recommends pharmacological treatment for patients with a FRAX 10-year risk of 3% or higher for a hip fracture, or 20% or higher for a major osteoporotic fracture, to prevent osteoporosis and reduce fracture risk. The patient does not meet the pharmacological treatment recommendations for prevention of osteoporosis. BD/Dexa Bone Density Study IMPRESSION: OSTEOPENIA. Recommend follow-up as clinically warranted. Reading Location: [id number]
== END | disposition home or self-care (01) ==
LOC: OPBD 10:39
PROVIDERS: PCP Family Medicine; Referring Provider Internal Medicine Hematology & Oncology; Visit Provider Internal Medicine Hematology & Oncology
DX: Z78.0 Asymptomatic menopausal state (principal); M85.80 Other specified disorders of bone density and structure, unspecified site
CPT/HCPCS: 77080

== ENCOUNTER → 2025-03-30 | Outpatient (CLI) | payer MEDICARE, OTHER, SELFPAY ==
[2025-03-30 12:26] LABS: Hematocrit 33.2 % (37-47); Hemoglobin 10.0 g/dL (12.0-15.0); Immature Granulocytes Count 0.000 X10^3/uL (0.0-0.0); Mean Corp Hgb Conc 30.1 g/dL (32-36); Mean Corpuscular Volume 75.6 fL (81-99); Mean Platelet Vol. 10.1 fl (6.2-12.0); NRBC Flagged by Analyzer 0 % (0-5); Platelet Count 179 K/mm3 (150-450); RBC Distribution Width CV 18.4 % (11.6-14.6); RBC Distribution Width SD 50.2 fl (35.1-43.9); Red Blood Count 4.39 M/mm3 (4.2-5.4); White Blood Count 4.9 K/mm3 (4.4-11.0)
== END | disposition home or self-care (01) ==
LOC: MTLAB 09:58
PROVIDERS: PCP Family Medicine; Referring Provider Nurse Practitioner Family; Visit Provider Nurse Practitioner Family
DX: R22.0 Localized swelling, mass and lump, head (principal)
CPT/HCPCS: 36415; 85025

== ENCOUNTER 2025-05-26 09:32 | Emergency (ER) | payer MEDICARE, OTHER, SELFPAY ==
[2025-05-26] VITALS (7 sets, daily range): BP systolic 118–133; BP diastolic 42–93; PULSE 78–90; RESP 12–16; TEMP 36.6–36.8; O2SAT 92–99; BMI 29.0
--- NOTE | 2025-05-26 10:08 | CT_ITS ---
PROCEDURE: ABDOMEN/PELVIS W IV CONT ONLY 05/26/2025 REASON FOR EXAM: Abdominal pain TECHNIQUE: Procedure Code: [id number] Modality: CT Procedure: ABDOMEN/PELVIS W IV CONT ONLY Coronal and Sagittal reconstruction series were provided. CONTRAST: Isovue-300 VOLUME: 85 mL One or more dose reduction techniques were used (e.g., Automated exposure control, adjustment of the mA and/or kV according to patient size, use of iterative reconstruction technique. RADIATION DOSE SUMMARY: DLP: 1060.26 mGycm COMPARISON: CT abdomen/pelvis 09/07/2023 FINDINGS: Lower chest: Mild dependent atelectasis. Liver: Normal size. Normal enhancement. No enhancing lesion. Gallbladder and biliary ducts: Surgically absent. There is a biliary stent. Pneumobilia likely from prior instrumentation. Pancreas:Unremarkable. No ductal dilatation or mass. No peripancreatic fluid. Spleen: Top-normal in size. Adrenal glands: Unremarkable. Kidneys and ureters: Normal renal size, morphology, and enhancement. No nephroureterolithiasis or hydroureteronephrosis. No renal mass. Urinary bladder: Unremarkable. GI: Unremarkable stomach and duodenum. Normal caliber small bowel and large bowel.Extensive sigmoid diverticulosis. No evidence of diverticulitis. Appendix: Unremarkable. Peritoneum: No ascites. Lymph nodes: Multiple nonspecific subcentimeter shotty mesenteric lymph nodes. No lymphadenopathy. Vasculature: Portal, splenic, and superior mesenteric veins are patent. No abdominal aortic aneurysm. Atherosclerotic calcification of the abdominal aorta and iliac arteries. Reproductive organs: Limited evaluation on CT. The uterus appears atrophic. No adnexal mass. Musculoskeletal and soft tissues: No aggressive osseous lesions. Compression deformities of L1 and L2 vertebral bodies, new since prior examination.Soft tissue scarring at the umbilical region. CT/Abdomen/Pelvis W IV Cont ONLY IMPRESSION: 1. No evidence of bowel obstruction. 2. Nonspecific pneumobilia likely secondary to instrumentation given presence o f biliary stent. 3. Diverticulosis without evidence of diverticulitis. 4. L1 and L2 compression of indeterminate age. These were not present on prior CT abdomen/pelvis dated 09/07/2023. 5. Additional findings discussed in the body of the report. Reading Location: [id number]
--- NOTE | 2025-05-26 10:17 | EX.ED.DYSGE1 ---
HPI History of Present Illness Chief Complaint: Abd Pain Informant: patient Narrative Narrative: 75-year-old female presenting to the emergency room with a chief complaint of abdominal and back pain. Patient states that over the past week she has had nausea and lower abdominal pain. She notes chronic urinary frequency but no dysuria. She states that the pain radiates into the back and makes it hard for her to move around. She states she has not had any difficulty ambulating but getting from a sitting to a standing position has been difficult. She denies any fevers. She states that she had constipation and took a laxative and had some diarrhea. [facility] Medical History Encounter for education MRSA (methicillin resistant staph aureus) culture positive Wears partial dentures Post-menopausal Injury of head and neck History of ulceration History of echocardiogram Abnormal ultrasound of breast Abnormal mammogram of left breast Thrombocytopenia Dysequilibrium Dysarthria Nontraumatic chronic subdural hemorrhage Personal history of colonic polyps Wears glasses Open wound Migraines Brain bleed Wears dentures Alcohol use Arthritis Anemia Easy bruising Restless legs Back pain Seizures History of GI bleed History of diverticulitis Gastric reflux Former smoker History of stress test History of muscle spasm Leg cramps Duodenal ulcer GI bleed Home Medications ?Medication ?Instructions ?Recorded ?Last Taken ?Type baclofen 10 mg tablet 10 mg PO TID PRN Muscle Spasm 30 08/06/24 02/09/25 15:00 Rx days #90 tabs pantoprazole 40 mg tablet,delayed 40 mg PO DAILY 30 days #30 tabs 08/06/24 02/10/25 05:30 Rx release cholecalciferol (vitamin D3) 25 25 mcg PO DAILY 02/05/25 02/09/25 History mcg (1,000 unit) capsule (Vitamin D3) gabapentin 100 mg capsule 100 mg PO DAILY PRN neuropathic 02/05/25 02/09/25 15:00 History pain magnesium 250 mg tablet 250 mg PO DAILY 02/05/25 Unknown History potassium gluconate 595 mg (99 mg) 595 mg PO DAILY 02/05/25 02/09/25 15:00 History tablet anastrozole 1 mg tablet 1 mg PO DAILY #90 tabs 04/14/25 Unknown Rx calcium carbonate 500 mg PO DAILY 04/24/25 Unknown History oxycodone 5 mg tablet 5 mg PO TID PRN pain 3 days #12 05/26/25 Unknown Rx tabs Allergy/AdvReac Type Severity Reaction Status Date / Time acetaminophen (From Tylenol) Allergy Severe Other Verified 05/26/25 09:34 Penicillins Allergy Rash Verified 05/26/25 09:34 prednisone Allergy Rash Verified 05/26/25 09:34 ibuprofen AdvReac Bleeding Verified 05/26/25 09:34 Family History Mother Colon cancer Hx of colectomy Father Colon cancer Aunt Colon cancer Breast cancer Uncle Colon cancer Grandfather Colon cancer Other Heart disease Surgical History S/P lumpectomy, right breast Hx of colonoscopy History of craniotomy History of partial colectomy Hx of cystoscopy History of ERCP History of incisional hernia repair History of common bile duct surgery History of cholecystectomy Hx of colonoscopy Hx of esophagogastroduodenoscopy S/P tubal ligation Status post craniotomy S/P wrist surgery Social History household members: none and other housing: house current occupational status: retired Smoking Status: Former smoker alcohol intake: current alcohol intake frequency: holidays/special occasions only substance use type: does not use ROS ROS ED Constitutional Constitutional ED: Denies chills, fever(s) or weight loss Eyes Eyes: Denies change in vision or diplopia ENT ENT ED: Denies ear pain, rhinorrhea or sore throat Cardiovascular Cardiovascular: Denies chest pain, orthopnea, palpitations or racing heartbeat Respiratory/Chest Respiratory/Chest: Denies cough, dyspnea or orthopnea Gastrointestinal Gastrointestinal: Reports abdominal pain, constipation, diarrhea and nausea; Denies vomiting Genitourinary Genitourinary ED: Reports urinary frequency; Denies dysuria or hematuria Musculoskeletal Musculoskeletal: Reports back pain; Denies arthralgias or myalgias Integumentary Denies abscess or rash Neurologic Neurologic: Denies headache(s) or weakness Psychiatric Psychiatric: Denies anxiety, depression, suicidal ideation or suicidal thoughts Endocrine Endocrinology: Denies polydipsia, polyphagia or polyuria Allergic/Immunologic Allergic/Immunologic ED: Denies mouth swelling, tongue swelling or urticaria EXAM Physical Exam Const Vital Signs: 05/26/25 09:33 05/26/25 11:32 05/26/25 12:01 Temperature 98.2 F Temperature Source Oral Pulse Rate 78 90 Respiratory Rate 16 12 Blood Pressure 118/66 131/42 H Blood Pressure Mean 83 71 Pulse Ox 97 98 95 Oxygen Delivery Method Room Air Room Air 05/26/25 12:15 05/26/25 12:30 05/26/25 12:59 Temperature 98.2 F Temperature Source Pulse Rate 90 Respiratory Rate 12 Blood Pressure 119/56 L 120/50 L 131/42 H Blood Pressure Mean 79 70 71 Pulse Ox 92 92 98 Oxygen Delivery Method 05/26/25 13:02 Temperature 97.8 F Temperature Source Pulse Rate 88 Respiratory Rate 16 Blood Pressure 133/93 H Blood Pressure Mean 106 Pulse Ox 99 Oxygen Delivery Method Positive well nourished and well developed General Appearance ED: well developed HEENT Reports normocephalic, head/scalp atraumatic and moist mucous membranes Eyes PERRL and EOMs intact bilaterally Neck no lymphadenopathy, supple and no JVD Resp normal respiratory effort and clear to auscultation bilaterally Cardio regular rate, regular rhythm and no murmurs GI GI Narrative: The abdomen is soft. She reports diffuse tenderness to palpation normal bowel sounds. No masses. No guarding or rebound Palpation: soft; Negative for guarding or rebound tenderness present Back/Spine no CVA tenderness Back/Spine Narrative: Patient has painful range of motion of the low back. She reports tenderness to palpation of the lumbar paraspinal musculature. I do not appreciate any swelling or erythema or rashes. Extremity normal to inspection General Extremety ED: Negative for edema General Extremity: Negative for edema Neuro oriented x3 and CN's II-XII intact bilaterally Sensorium / Orientation: alert Motor Exam: strength 5/5 throughout Psych mental status grossly normal Mood & Affect: Negative for depressed or tearful Skin no rashes or lesions noted and no wounds MDM MDM MDM Narrative Medical decision making narrative: Differential diagnosis includes colitis diverticulitis intra-abdominal abscess lumbar myofascial strain shingles dehydration pancreatitis biliary colic UTI pyelonephritis kidney stone Blood work was obtained shows a white count of 8.7 hemoglobin 13.7 platelet count of 149. BMP shows a glucose of 114 creatinine 0.60 LFTs show total bilirubin of 1.16 direct 0.52 AST minimally elevated at 41 ALT of 31 alkaline phosphatase of 109 lipase is 29 urinalysis does not show any overt infection. CT of the abdomen pelvis with IV contrast was obtained. This was read by radiology and reviewed by myself. I do not see any obvious pathology that would explain the patient's pain. The patient was noted to have L1 and L2 compression fractures of age indeterminant status. She does not recall any recent trauma and her pain is not localized to this area but more of a diffuse low back Patient received a dose of Toradol Zofran and IV fluids. I discussed with her the above findings. Would recommend continued use of heat gentle stretching. Patient to follow-up if not improving return if worsening. History & Record Review Discussion w/independent historian: Patient Additional record(s) reviewed:: Prior inpatient record, Prior outpatient record, Prior ED visit and Prior labs Lab Data Attestation: I reviewed the patient's lab results. Labs: Laboratory Results - last 24 hr 05/26/25 05/26/25 10:22 10:32 WBC 8.7 RBC 4.94 Hgb 13.7 Hct 42.2 MCV 85.4 MCH 27.7 MCHC 32.5 RDW Std Deviation TNP RDW Coeff of Bria TNP Plt Count 149 L MPV 9.7 Immature Gran % (Auto) 0.200 Neut % (Auto) 78.3 H Lymph % (Auto) 12.4 L [place] % (Auto) 8.6 Eos % (Auto) 0.3 Baso % (Auto) 0.2 Absolute Neuts (auto) 6.8 Absolute Lymphs (auto) 1.08 Nucleated RBC % 0 Anisocytosis 1+ Sodium 138 Potassium 3.7 Chloride 102 Carbon Dioxide 26.0 Anion Gap 10 BUN 9 Creatinine 0.60 L Estim Creat Clear Calc 68.68 Est GFR (MDRD) Non-Af 94 BUN/Creatinine Ratio 15.4 Glucose 114 H Calcium 9.1 Total Bilirubin 1.16 Direct Bilirubin 0.52 H AST 41 H ALT 31 Alkaline Phosphatase 109 H Total Protein 6.9 Albumin 3.9 Globulin 3.0 Lipase 29 Urine Color Yellow Urine Clarity Sl. Cloudy Urine pH 6.0 Ur Specific [place] 1.025 Urine Protein 30 H Urine Glucose (UA) Normal Urine Ketones Negative Urine Occult Blood 150 H Urine Nitrite Negative Urine Bilirubin Negative Urine Urobilinogen 1 H Ur Leukocyte Esterase 25 H Urine RBC 0-5 SEEN Urine WBC 0-5 SEEN Ur Squamous Epith Cells 0-5 SEEN Urine Bacteria 1+ Urine Mucus 0 SEEN Radiography Diagnostic Testing: Clinical Impression(s) from Imaging Studies Abdomen/Pelvis CT 05/26/25 10:08 IMPRESSION: 1. No evidence of bowel obstruction. 2. Nonspecific pneumobilia likely secondary to instrumentation given presence of biliary stent. 3. Diverticulosis without evidence of diverticulitis. 4. L1 and L2 compression of indeterminate age. These were not present on prior CT abdomen/pelvis dated 09/07/2023. 5. Additional findings discussed in the body of the report. Reading Location: [facility] Discharge Plan Triage Chief Complaint: Abd Pain Other Complaint: Back ED Provider: Javed Gallegos Dx/Rx/DC Orders Clinical Impression: Abdominal pain, Back pain Instructions: ED Back Pain (Acute or Chronic) Prescriptions: New oxycodone 5 mg tablet 5 mg PO TID PRN (Reason: pain) 3 Days Qty: 12 0RF No Action anastrozole 1 mg tablet 1 mg PO DAILY Qty: 90 3RF baclofen 10 mg Tablet 10 mg PO TID PRN (Reason: Muscle Spasm) 30 Days Qty: 90 0RF pantoprazole 40 mg Tablet,Delayed Release (Dr/Ec) 40 mg PO DAILY 30 Days Qty: 30 0RF cholecalciferol (vitamin D3) [Vitamin D3] 25 mcg (1,000 unit) capsule 25 mcg PO DAILY potassium gluconate 595 mg (99 mg) tablet 595 mg PO DAILY magnesium 250 mg tablet 250 mg PO DAILY gabapentin 100 mg capsule 100 mg PO DAILY PRN (Reason: neuropathic pain) calcium carbonate 500 mg calcium (1,250 mg) tablet 500 mg PO DAILY Primary Care Provider: Mary Smith Referrals: Mary Smith DO [Primary Care Provider, Family Practice] - 1 Week if not improving Print Language: Setswana Disposition Disposition: Home, Self Care Discharge Date/Time: 05/26/25 13:04
[2025-05-26 10:26] LABS: Mucous, Urine 0 SEEN /hpf (<or=2+)
[2025-05-26 10:28] LABS: Color, Urine Yellow (Yellow); Glucose, Dipstick Normal (Normal); Ketone-Dipstick Negative (Negative); Leukocyte Esterase-Dipstick 25 /ul (Negative); Nitrite-Dipstick Negative (Negative); Occult Blood-Urine 150 /ul (Negative); Protein-Dipstick 30 mg/dl (Negative); Specific Gravity, Urine 1.025 (1.002-1.030); Urine Bilirubin Dipstick Negative (Negative)
[2025-05-26] MEDS: 0.9% Normal Saline (1000mL) 1,000 ML 999 ML IV (10:38)
[2025-05-26 10:39] LABS: Hematocrit 42.2 % (37-47); Hemoglobin 13.7 g/dL (12.0-15.0); Immature Granulocytes Count 0.020 X10^3/uL (0.0-0.0); Mean Corp Hgb Conc 32.5 g/dL (32-36); Mean Corpuscular Volume 85.4 fL (81-99); Mean Platelet Vol. 9.7 fl (6.2-12.0); NRBC Flagged by Analyzer 0 % (0-5); POSITIVE MORPHOLOGY YES; Platelet Count 149 K/mm3 (150-450); Red Blood Count 4.94 M/mm3 (4.2-5.4); White Blood Count 8.7 K/mm3 (4.4-11.0)
[2025-05-26 10:40] LABS: Differential Indicated SCAN CRITERIA MET
[2025-05-26 10:41] LABS: Red Blood Cells-Urine 0-5 SEEN /hpf (0-5); Squamous Epithelial Cells - UA 0-5 SEEN /hpf (5-10)
[2025-05-26 11:03] LABS: Anisocytosis 1+
[2025-05-26 11:19] LABS: AST(SGOT) 41 U/L (<=31); Alanine Aminotransfer ALT/SGPT 31 U/L (<=34); Albumin, Serum 3.9 g/dL (3.4-4.8); Alkaline Phosphatase 109 U/L (35-104); Anion Gap 10 (7-18); BUN 9 mg/dL (4-19); BUN/Creat Ratio 15.4 RATIO (10-20); Bilirubin, Direct 0.52 mg/dL (0.00-0.30); Calcium,Total 9.1 mg/dL (7.6-11.0); Carbon Dioxide 26.0 mmol/L (20.0-29.0); Chloride 102 mmol/L (96-106); Estimated Creatinine Clearance 68.68 ml/min (50-250); Globulin 3.0 g/dL (2.2-4.2); Glucose 114 mg/dL (70-99); Lipase 29 U/L (13-75); Potassium 3.7 mmol/L (3.5-5.1)
== END 2025-05-26 13:04 | disposition home or self-care (01) ==
PROVIDERS: Emergency Provider Emergency Medicine; PCP Family Medicine; Visit Provider Emergency Medicine
DX: R10.30 Lower abdominal pain, unspecified (principal); M54.50 Low back pain, unspecified; Z87.891 Personal history of nicotine dependence
CPT/HCPCS: 74177; 80048; 80076; 81001; 83690; 85025; 96361; 96374; 96375; 99284; Q9967; A4216; J2405